=== PATIENT | male | born 1970 | race Caucasian/White ===

== ENCOUNTER → 2018-03-15 | Outpatient (CLI) | payer BC ==
--- NOTE | 2018-03-15 15:04 | US ---
EXAMINATION TYPE: US extremity nonvasculr ltd RT DATE OF EXAM: 03/15/2018 COMPARISON: NONE CLINICAL HISTORY: R22.41Localized swelling, mass and lump, right low. Pt states palpable lump right a nterior leg just above right knee x 2 months Complex/Cystis area where pt feels palpable right anterior leg just above knee= 2.4 x 1.9 x 2.2 cm This appears nonvascular on color-flow sonography. IMPRESSION: Complex cyst like structure above the knee at the palpable abnormality. Consider additio nal workup with MRI.
== END | disposition home or self-care (01) ==
LOC: RADUSWWP 14:15
PROVIDERS: ATTEND Family Medicine
DX: R22.41 Localized swelling, mass and lump, right lower limb (principal)

== ENCOUNTER 2018-06-16 08:04 | Inpatient (IN) | payer BC ==
[2018-06-16] MEDS ORDERED: KETOROLAC 30 MG/ML 1 ML VIAL IVP STA (08:34)
[2018-06-16] MEDS ORDERED: SODIUM CHLORIDE 0.9% 500 ML 500 ML IV STA (08:34)
[2018-06-16 09:16] LABS: Basophils % (A) 1 %; Eosinophils # (A) 0.2 k/uL (0-0.7); Eosinophils % (A) 4 %; HCT 41.3 % (39.0-53.0); Lymphocytes # (A) 1.4 k/uL (1.0-4.8); Lymphocytes % (A) 34 %; MCH 33.8 pg (25.0-35.0); MCHC 33.8 g/dL (31.0-37.0); MCV 99.9 fL (80.0-100.0); Mean Platelet Volume 7.6; Monocytes # (A) 0.4 k/uL (0-1.0); Monocytes % (A) 10 %; Neutrophils % (A) 47 %; Platelet Count 269 k/uL (150-450); RBC 4.13 m/uL (4.30-5.90); RDW 13.2 % (11.5-15.5); WBC 4.2 k/uL (3.8-10.6)
[2018-06-16 09:28] LABS: ALT 26 U/L (21-72); AST 18 U/L (17-59); Albumin 4.4 g/dL (3.5-5.0); Alkaline Phosphatase 92 U/L (38-126); Anion Gap 9 mmol/L; Blood Urea Nitrogen 16 mg/dL (9-20); Calcium 11.7 mg/dL (8.4-10.2); Carbon Dioxide 30 mmol/L (22-30); Chloride 105 mmol/L (98-107); Glucose 96 mg/dL (74-99); Magnesium 1.7 mg/dL (1.6-2.3); Potassium 4.4 mmol/L (3.5-5.1); Sodium 144 mmol/L (137-145); Total Bilirubin 0.8 mg/dL (0.2-1.3); Total Protein 6.6 g/dL (6.3-8.2)
[2018-06-16 09:33] LABS: D-Dimer 0.28 mg/L FEU (<0.60); INR 0.9 (<1.2)
[2018-06-16 09:34] LABS: Partial Thromboplastin Time 23.2 sec (22.0-30.0); Prothrombin Time 10.2 sec (9.0-12.0)
--- NOTE | 2018-06-16 10:05 | XR ---
EXAMINATION TYPE: XR chest 2V DATE OF EXAM: 06/16/2018 COMPARISON: 05/27/2014 INDICATION: Chest pain TECHNIQUE: Frontal and lateral views of the chest are obtained. FINDINGS: The heart size is normal. The pulmonary vasculature is normal. The lungs are clear. IMPRESSION: 1. No acute pulmonary process.
--- NOTE | 2018-06-16 11:20 | CT ---
EXAMINATION TYPE: CT ChestAbdPelvis w con DATE OF EXAM: 06/16/2018 INDICATION: Left upper quadrant pain and chest pain COMPARISON: None CT DLP: 955.4 mGycm CONTRAST: Performed without Oral Contrast and with IV Contrast, patient injected with 100 ml mL of Isovue 300. TECHNIQUE: Axial images at 5 mm thick sections. Reconstructed images in the coronal plane. Delayed images through the kidneys. FINDINGS: CT CHEST: Portion of the thyroid visualized is normal. No suspicious lung nodules or focal infiltrates are present. No enlarged mediastinal or hilar adenopathy is evident. The ascending aorta diameter at the level of the main pulmonary artery is 3.5 cm. The main pulmonary artery diameter at the bifurcation is 2.1 cm. No significant coronary artery calcification is noted. CT ABDOMEN: Liver: Normal Spleen: Normal Pancreas: Normal Adrenal glands: The adrenal glands are normal. Gallbladder: Normal Kidneys: No masses are evident. No hydronephrosis is present. No cysts are present. Delayed images were obtained through the kidneys, which remain unremarkable. Aorta: Vascular calcification is within the aorta. Inferior vena cava: Normal. CT PELVIS: Loops of bowel within the abdomen and pelvis are normal. Study is performed without oral contrast limiting bowel evaluation. Some fecal debris is scattered throughout the colon. Appendix: Not identified. There is a small extension from the cecum which could be a truncated append ix. No suspicious inflammatory changes are adjacent. Correlate with patient's surgical history. Urinary bladder: Normal. Genitourinary structures: Small calcification may be within the prostate. No prostate enlargement is evident. Osseous structures: There are multiple lytic areas within the lumbar spine. The largest appears to be at the L2 level. Correlate for history of cancer. Consider multiple myeloma within the differential. There appears to be expansile rib lesions posterior left T11 which may have a pathologic fracture an d posterior lateral T9. IMPRESSIONS: 1. Expansile lesion within the posterior left 11th rib with possible pathologic fracture. Correlate w ith location of the patient's pain. 2. Expansile lesion within the posterior lateral left ninth rib. 3. Multiple lytic areas throughout the thoracic and lumbar spine. The largest area could involve most of the vertebral body of L2. No acute compression deformities are identified at this time. 4. Lytic areas within the medial right iliac wing. 4. Clinical correlation recommended for multiple myeloma. Metastatic disease could be considered. Add itional workup is recommended.
--- NOTE | 2018-06-16 12:04 | ED ---
General Adult HPI - General Chief complaint: Abdominal Pain Stated complaint: abd pain Time Seen by Provider: 06/16/18 08:17 Source: patient, RN notes reviewed Mode of arrival: ambulatory Limitations: no limitations - History of Present Illness Initial comments: 47-year-old male without any significant past medical history presents to the emergency department for a chief complaint of left rib pain 6 weeks. He states this is worse when he coughs and takes a deep breath. Patient states he has seen his primary care provider who had him do x-rays due to concern for possible rib fracture. However patient denies any injuries. Patient states it is starting to hurt so bad it is causing him to wake up in cold sweats. Patient states he was here and would like to figure out what is going on to cause such pain. He denies any cough or congestion. He denies fevers or chills. Denies any abdominal pain. Patient has no other complaints at this time including shortness of breath, chest pain, abdominal pain, nausea or vomiting, headache, or visual changes. - Related Data Home Medications Medication Instructions Recorded Confirmed Acetaminophen-Codeine 300-30mg 1 tab PO TID PRN 06/16/18 06/16/18 [Tylenol w/codeine #3] Escitalopram [Lexapro] 20 mg PO DAILY 06/16/18 06/16/18 Loratadine [Claritin] 10 mg PO DAILY 06/16/18 06/16/18 Allergies Allergy/AdvReac Type Severity Reaction Status Date / Time No Known Allergies Allergy Verified 06/16/18 12:53 Review of Systems ROS Statement: Those systems with pertinent positive or pertinent negative responses have been documented in the HPI. ROS Other: All systems not noted in ROS Statement are negative. Past Medical History Past Medical History: Hypertension Additional Past Medical History / Comment(s): Never taken hypertensive medication. History of Any Multi-Drug Resistant Organisms: None Reported Past Surgical History: No Surgical Hx Reported, Appendectomy Past Psychological History: No Psychological Hx Reported, Depression Smoking Status: Never smoker Past Alcohol Use History: Daily Past Drug Use History: None Reported General Exam Limitations: no limitations General appearance: alert, in no apparent distress Head exam: Present: atraumatic, normocephalic, normal inspection Eye exam: Present: normal appearance, PERRL, EOMI. Absent: scleral icterus, conjunctival injection, periorbital swelling ENT exam: Present: normal exam, mucous membranes moist Neck exam: Present: normal inspection. Absent: tenderness, meningismus, lymphadenopathy Respiratory exam: Present: normal lung sounds bilaterally, chest wall tenderness (Patient has left-sided lateral rib tenderness extending from about T4 or down his rib cage.). Absent: respiratory distress, wheezes, rales, rhonchi, stridor, accessory muscle use Cardiovascular Exam: Present: regular rate, normal rhythm, normal heart sounds. Absent: systolic murmur, diastolic murmur, rubs, gallop, clicks GI/Abdominal exam: Present: soft, normal bowel sounds. Absent: distended, tenderness (Tenderness in the abdomen including the left upper quadrant), guarding, rebound, rigid Neurological exam: Present: alert, oriented X3, CN II-XII intact Psychiatric exam: Present: normal affect, normal mood Course Vital Signs 06/16/18 08:12 Temperature 98.3 F Pulse Rate 77 Respiratory 18 Rate Blood Pressure 152/100 O2 Sat by Pulse 98 Oximetry EKG Findings - EKG Comments: EKG Findings:: Normal sinus rhythm, ventricular rate 75, ID interval 148, QTC 417 Medical Decision Making - Medical Decision Making 47-year-old pleasant and well appearing male presents to the emergency department for a chief complaint of left-sided rib pain. Patient states this has been ongoing for 6 weeks. He states he has been evaluated multiple times for this and recently had a chest x-ray to rule out rib fracture. On exam patient is of tenderness noted of the lateral left-sided chest wall. Given pleuritic symptoms d-dimer was ordered which was within normal limits. Given symptoms extending from the chest down to the lower ribs CT chest abdomen and pelvis was ordered. This shows lesions within the posterior left ribs with possible pathologic fracture. There are also lesions in the posterior lateral left ninth rib as well as throughout the thoracic and lumbar spine. Most of L2 is involved. There are also lytic lesions noted within the right iliac wing. Calcium is elevated at 11.7. CBC CMP troponin otherwise unremarkable. Lesions and concern for possible cancerous etiology were discussed with patient. He will be admitted for oncology consult. He is agreeable to this. - Lab Data Result diagrams: 06/16/18 08:58 06/16/18 08:58 Lab Results 06/16/18 06/16/18 06/16/18 Range/Units 08:58 08:58 08:58 WBC 4.2 (3.8-10.6) k/uL RBC 4.13 L (4.30-5.90) m/uL Hgb 14.0 (13.0-17.5) gm/dL Hct 41.3 (39.0-53.0) % MCV 99.9 (80.0-100.0) fL MCH 33.8 (25.0-35.0) pg MCHC 33.8 (31.0-37.0) g/dL RDW 13.2 (11.5-15.5) % Plt Count 269 (150-450) k/uL Neutrophils % 47 % Lymphocytes % 34 % Monocytes % 10 % Eosinophils % 4 % Basophils % 1 % Neutrophils # 2.0 (1.3-7.7) k/uL Lymphocytes # 1.4 (1.0-4.8) k/uL Monocytes # 0.4 (0-1.0) k/uL Eosinophils # 0.2 (0-0.7) k/uL Basophils # 0.0 (0-0.2) k/uL PT 10.2 (9.0-12.0) sec INR 0.9 (<1.2) APTT 23.2 (22.0-30.0) sec D-Dimer 0.28 (<0.60) mg/L FEU Sodium 144 (137-145) mmol/L Potassium 4.4 (3.5-5.1) mmol/L Chloride 105 (98-107) mmol/L Carbon Dioxide 30 (22-30) mmol/L Anion Gap 9 mmol/L BUN 16 (9-20) mg/dL Creatinine 1.07 (0.66-1.25) mg/dL Est GFR (CKD-EPI)AfAm >90 (>60 ml/min/1.73 sqM) Est GFR (CKD-EPI)NonAf 84 (>60 ml/min/1.73 sqM) Glucose 96 (74-99) mg/dL Calcium 11.7 H (8.4-10.2) mg/dL Magnesium 1.7 (1.6-2.3) mg/dL Total Bilirubin 0.8 (0.2-1.3) mg/dL AST 18 (17-59) U/L ALT 26 (21-72) U/L Alkaline Phosphatase 92 (38-126) U/L Troponin I (0.000-0.034) ng/mL Total Protein 6.6 (6.3-8.2) g/dL Albumin 4.4 (3.5-5.0) g/dL 06/16/18 Range/Units 08:58 WBC (3.8-10.6) k/uL RBC (4.30-5.90) m/uL Hgb (13.0-17.5) gm/dL Hct (39.0-53.0) % MCV (80.0-100.0) fL MCH (25.0-35.0) pg MCHC (31.0-37.0) g/dL RDW (11.5-15.5) % Plt Count (150-450) k/uL Neutrophils % % Lymphocytes % % Monocytes % % Eosinophils % % Basophils % % Neutrophils # (1.3-7.7) k/uL Lymphocytes # (1.0-4.8) k/uL Monocytes # (0-1.0) k/uL Eosinophils # (0-0.7) k/uL Basophils # (0-0.2) k/uL PT (9.0-12.0) sec INR (<1.2) APTT (22.0-30.0) sec D-Dimer (<0.60) mg/L FEU Sodium (137-145) mmol/L Potassium (3.5-5.1) mmol/L Chloride (98-107) mmol/L Carbon Dioxide (22-30) mmol/L Anion Gap mmol/L BUN (9-20) mg/dL Creatinine (0.66-1.25) mg/dL Est GFR (CKD-EPI)AfAm (>60 ml/min/1.73 sqM) Est GFR (CKD-EPI)NonAf (>60 ml/min/1.73 sqM) Glucose (74-99) mg/dL Calcium (8.4-10.2) mg/dL Magnesium (1.6-2.3) mg/dL Total Bilirubin (0.2-1.3) mg/dL AST (17-59) U/L ALT (21-72) U/L Alkaline Phosphatase (38-126) U/L Troponin I <0.012 (0.000-0.034) ng/mL Total Protein (6.3-8.2) g/dL Albumin (3.5-5.0) g/dL Disposition Clinical Impression: Bone lesion, Pathological fracture of rib of left side, Hypercalcemia Disposition: ADMITTED IP TO THIS HOSP Condition: Fair Is patient prescribed a controlled substance at d/c from ED?: No Referrals: Jackie Pate III, MD [Primary Care Provider] - 1-2 days Time of Disposition: 12:49
[2018-06-16] MEDS ORDERED: MORPHINE SULFATE 4 MG/ML SYRINGE IV PRN (12:37)
[2018-06-16] MEDS ORDERED: ONDANSETRON 4 MG/2 ML VIAL IVP PRN (12:37)
[2018-06-16] MEDS ORDERED: NALOXONE 0.4 MG/ML 1 ML VIAL IV PRN (12:37)
[2018-06-16] MEDS: SODIUM CHLORIDE 0.9% 1,000 ML IV SCH ×2 (13:24→21:14)
[2018-06-16] MEDS ORDERED: ALPRAZolam 0.25 MG TAB PO PRN (15:59)
[2018-06-16] MEDS ORDERED: ACETAMINOPHEN TAB 500 MG TAB PO PRN (15:59)
[2018-06-16] MEDS ORDERED: HYDROmorphone 0.5 MG/0.5 ML SYRINGE IVP PRN (15:59)
[2018-06-16] MEDS ORDERED: cloNIDine HCL 0.1 MG TAB PO PRN (15:59)
[2018-06-16 16:15] VITALS: BMI 28.1
--- NOTE | 2018-06-16 17:00 | HP ---
HISTORY AND PHYSICAL DATE OF SERVICE: 06/16/2018 CHIEF COMPLAINTS: Left rib pain. HISTORY OF PRESENT ILLNESS: This 47-year-old gentleman with a past medical history of hypertension, history of appendectomy, history of depression, being followed by Dr. Pate in the outpatient setting complaining of rib pain on the left side for about 6 weeks. The patient also had some back pain also. The patient had multiple urgent care visits and because of lack of improvement, the patient came to [facility] and admitted for further evaluation and treatment. There is no history of fever, rigors. No history of headache, loss of consciousness, seizures at this time. The patient reports the pain is worse when coughing or taking a deep breath. Initial evaluation showed WBC 4.2, hemoglobin is 14 and calcium is elevated at 11.7. The patient had a chest x-ray which showed no acute pulmonary processes, but the patient had a CT scan of the chest, abdomen and pelvis which showed expansile lesion in the posterior left 11th rib with possible pathological fracture and expansile lesion in the posterior lateral left 9th rib and multiple indicators throughout thoracic and lumbar spine. Largest area could be involving the L2 and lytic areas in the medial right iliac wing. The patient admitted for further evaluation and treatment. Multiple myeloma with mental status concerns. There is no history of fever, rigors or chills. No history of headache, loss of consciousness, seizures. PAST MEDICAL HISTORY: Hypertension, history of appendectomy, history of depression. MEDICATIONS: Home medications are: 1. Tylenol #3, 1 p.o. p.r.n. 2. Claritin 10 mg. 3. Lexapro 20 mg daily. ALLERGIES: None. FAMILY HISTORY: No history of heart disease or strokes in the family. SOCIAL HISTORY: No history of smoking. REVIEW OF SYSTEMS: ENT: No diminished hearing or vision. CARDIOVASCULAR: No angina or palpitations. RESPIRATORY: As mentioned earlier. GI no nausea or vomiting. no dysuria. Nervous system: No numbness, weakness. ALLERGY/IMMUNOLOGY: No asthma or hayfever. MUSCULOSKELETAL: As mentioned earlier. HEMATOLOGY/ONCOLOGY: As mentioned earlier. ENDOCRINE: As mentioned earlier. CONSTITUTIONAL: As mentioned earlier. Dermatology negative. Rheumatology: Negative. Psychiatry as mentioned earlier. Otherwise musculoskeletal mentioned. PHYSICAL EXAMINATION: Alert and oriented x3. Pulse is 185, blood pressure 160/70, respiration 18, temperature 97.9, pulse ox 98% on room air. HEENT: Conjunctivae normal. NECK: No jugular venous distention. CARDIOVASCULAR: S1, S2 muffled. RESPIRATORY: Breath sounds diminished in the bases. No rhonchi. No crackles. ABDOMEN: Soft, nontender. No mass palpable. No hepatosplenomegaly. LEGS: No edema, no swelling. CENTRAL NERVOUS SYSTEM: As mentioned earlier. Moves all 4 limbs. No focal motor or sensory deficits. Lymphatics: No lymph nodes palpable in the neck, axillae or groin. Skin no ulcer, rash or bleeding. Examination of the left chest, palpation slightly tender. LAB STUDIES: WBC 4.8, hemoglobin is 14. Sodium 140, potassium 4.2, creatinine 11.0, other labs are noted. ASSESSMENT: 1. Diffuse osteolytic lesions in the ribs and the thoracic and lumbar vertebrae and iliac bone, possibly multiple myeloma. Rule out metastasis. 2. Hypercalcemia. 3. Possible rib fractures with severe chest pain. 4. Hypertension. 5. History of depression. RECOMMENDATIONS AND DISCUSSION: In this 47-year-old gentleman who presented with multiple complex medical issues, we will monitor the patient closely, continue the current medications, management and symptomatic treatment. I recommend Hematology/Oncology evaluation, protein electrophoresis, possible bone marrow biopsy, otherwise continue IV fluids. Repeat labs in the morning. Guarded prognosis because of multiple complex medical problems. We will monitor blood pressure closely. DVT prophylaxis. Prognosis guarded. Copy of dictation forwarded to Dr. Pate who is the primary care physician. AVIS / DIEGON: [id number] /
--- NOTE | 2018-06-16 17:02 | P.CONS ---
History of Present Illness - Reason for Consult Consult date: 06/16/18 Lytic Lesions Requesting physician: Jordin Griffiths - Chief Complaint pain - History of Present Illness Mr. Arthur is a 47-year-old male without any significant past medical history presents to the emergency department for a complaints of persistent left sided rub pain, present for the past 6 weeks. He was seen by PCP for xrays for possible fracture, although the pain was so severe was keeping him from sleeping and could not find relief at home with OTC medication. On admission CT scan C/A/P was completed. Concern for possible lytic lesions and elevated calcium level was identified. His total portein and albumin are within normal limits, no anemia on CBC. Hematology has been consulted to correlate for potential of multiple myeloma versus other malignancy. CT scan did reveal potential pathological rib fracture at left of the right 6th rib. 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 In April of this year was diagnosed with pleurisy and states ever since then just has not recovered. Since March he has been waking up overnight with drenching sweats that have even been ad enough he has slept with a towel under him. He has no weight loss or changes in bowels or bladder. His calcium 11.[address] lytic lesions was the reason we have been consulted. No personal history of cancer Review of Systems A 14 point review of systems assessed and completed and all negative except HPI. Past Medical History Past Medical History: Hypertension Additional Past Medical History / Comment(s): Never taken hypertensive medication. History of Any Multi-Drug Resistant Organisms: None Reported Past Surgical History: No Surgical Hx Reported, Appendectomy Past Psychological History: No Psychological Hx Reported, Depression Smoking Status: Never smoker Past Alcohol Use History: Daily Past Drug Use History: None Reported - Past Family History Father Family Medical History: Hypertension Medications and Allergies Home Medications Medication Instructions Recorded Confirmed Type Acetaminophen-Codeine 300-30mg 1 tab PO DIRECTED PRN 06/16/18 06/16/18 History [Tylenol w/codeine #3] Escitalopram [Lexapro] 20 mg PO DAILY 06/16/18 06/16/18 History Loratadine [Claritin] 10 mg PO DAILY 06/16/18 06/16/18 History Allergies Allergy/AdvReac Type Severity Reaction Status Date / Time No Known Allergies Allergy Verified 06/16/18 12:53 Physical Exam Vitals: Vital Signs Temp Pulse Pulse Resp BP BP Pulse Ox 06/16/18 15:30 87 16 160/78 06/16/18 15:14 97.9 F 85 18 160/78 99 06/16/18 13:30 92 15 150/84 06/16/18 13:24 97.5 F L 78 16 148/83 97 06/16/18 13:00 78 16 163/90 97 06/16/18 12:30 80 18 144/84 98 06/16/18 12:00 79 12 144/80 97 06/16/18 11:30 79 16 146/80 98 06/16/18 11:00 78 18 147/83 95 06/16/18 10:30 80 18 145/85 98 06/16/18 10:00 79 18 131/70 97 06/16/18 09:00 149/81 97 06/16/18 08:12 98.3 F 77 18 152/100 98 Intake and Output 06/16/18 06/16/18 06/16/18 06:59 14:59 22:59 Intake Total 240 Balance 240 Intake: Oral 240 Other: # Voids 2 Weight 81.647 kg Gen: no acute distress, awake and alert, well develped Head: NC. NT Neck Trachea midline neck supple No lymphadenopathy on exam Lungs: Unable to take full deep inspiration without pain, Diminished, Clear Heart: Tachy, Reg Abdomen: S/ND/NT Ext: No edema Neuro - non focal. Results CBC & Chem 7: 06/16/18 08:58 06/16/18 08:58 Labs: Abnormal Lab Results - Last 24 Hours (Table) 06/16/18 06/16/18 Range/Units 08:58 08:58 RBC 4.13 L (4.30-5.90) m/uL Calcium 11.7 H (8.4-10.2) mg/dL CT scan - abdomen: report reviewed CT scan - chest: report reviewed CT scan - pelvis: report reviewed Assessment and Plan Plan: Assessment and Recommendations: 1. Concern for lytic lesions on Bone and Right 6th rib pathological fracture: - Reviewed CT and no other abnormalities noted - Bone Scan to further identify as his total protein and albumin appear wnl - Myeloma work-up ordered 2. Hypercalcemia: - Check vit D, PTH, and recheck Calcium level in am after continuous hydration overnight 3. Persistent intractible pain right rib: Per primary team Physician Attest: I have completed the full history and physical and devloped the comple impression and plan, agree with dictation dictated as a scribe.
[2018-06-16] MEDS: amLODIPine 5 MG TAB PO SCH (17:49)
[2018-06-16 18:09] LABS: Magnesium 1.7 mg/dL (1.6-2.3); Phosphorus 3.7 mg/dL (2.5-4.5)
[2018-06-16] MEDS: KETOROLAC 30 MG/ML 1 ML VIAL IVP PRN (21:11)
[2018-06-16] MEDS: TEMAZEPAM 15 MG CAP PO PRN (21:11)
[2018-06-16] MEDS: HEPARIN SODIUM,PORCINE 5,000 UNIT/ML 1 ML VIAL SQ SCH (21:11)
[2018-06-17 06:29] VITALS: RESP 16
[2018-06-17 08:28] LABS: Basophils % (A) 1 %; Eosinophils # (A) 0.1 k/uL (0-0.7); Eosinophils % (A) 3 %; HCT 39.9 % (39.0-53.0); HGB 14.1 gm/dL (13.0-17.5); Lymphocytes # (A) 1.4 k/uL (1.0-4.8); Lymphocytes % (A) 36 %; MCH 34.2 pg (25.0-35.0); MCHC 35.4 g/dL (31.0-37.0); MCV 96.5 fL (80.0-100.0); Monocytes # (A) 0.4 k/uL (0-1.0); Monocytes % (A) 9 %; Neutrophils # (A) 1.9 k/uL (1.3-7.7); Neutrophils % (A) 49 %; Platelet Count 290 k/uL (150-450); RBC 4.13 m/uL (4.30-5.90); RDW 13.1 % (11.5-15.5); WBC 3.9 k/uL (3.8-10.6)
[2018-06-17 08:33] LABS: Protein, Total 6.3 g/dL (6.2-8.2)
[2018-06-17] MEDS: ESCITALOPRAM 20 MG TAB PO SCH (08:41)
[2018-06-17] MEDS: HEPARIN SODIUM,PORCINE 5,000 UNIT/ML 1 ML VIAL SQ SCH ×2 (08:41→20:14)
[2018-06-17] MEDS: PANTOPRAZOLE 40 MG TABLET PO SCH (08:41)
[2018-06-17] MEDS: LORATADINE 10 MG TAB PO SCH (08:41)
[2018-06-17] MEDS: amLODIPine 5 MG TAB PO SCH (08:41)
[2018-06-17] MEDS: KETOROLAC 30 MG/ML 1 ML VIAL IVP PRN ×2 (08:44→15:58)
[2018-06-17 08:51] LABS: ALT 33 U/L (21-72); AST 17 U/L (17-59); Albumin 4.1 g/dL (3.5-5.0); Alkaline Phosphatase 88 U/L (38-126); Anion Gap 7 mmol/L; Blood Urea Nitrogen 13 mg/dL (9-20); Calcium 11.3 mg/dL (8.4-10.2); Carbon Dioxide 27 mmol/L (22-30); Chloride 107 mmol/L (98-107); Glucose 128 mg/dL (74-99); Potassium 4.1 mmol/L (3.5-5.1); Sodium 141 mmol/L (137-145); Total Bilirubin 0.9 mg/dL (0.2-1.3); Total Protein 6.3 g/dL (6.3-8.2)
[2018-06-17 08:51] LABS: Vitamin D 25 Hydroxy 42.9 ng/mL (30.0-100.0)
[2018-06-17] MEDS: SODIUM CHLORIDE 0.9% 1,000 ML IV SCH ×4 (09:50→22:52)
[2018-06-17 09:57] LABS: Immunoglobulin A 52.6 mg/dL (60.0-350.0); Immunoglobulin M 19.5 mg/dL (40.0-280.0)
--- NOTE | 2018-06-17 10:17 | P.PN ---
Subjective Progress Note Date: 06/17/18 Principal diagnosis: Bony lesions, hypercalcemia In follow-up today patient's right rib pain is controlled, he has no new physical complaints on a 10 point review of systems Objective - Vital Signs Vital signs: Vital Signs Temp 97.4 F L 06/17/18 06:28 Pulse 72 06/17/18 06:28 Resp 16 06/17/18 06:28 BP 117/70 06/17/18 06:28 Pulse Ox 95 06/17/18 06:28 Intake & Output 06/16/18 06/17/18 06/17/18 18:59 06:59 18:59 Intake Total 600 2280 Balance 600 2280 Weight 81.647 kg Intake: Intake, IV Titration 1200 Amount Sodium Chloride 0.9% 1, 1200 000 ml @ 100 mls/hr IV . Q10H [facility] Rx#:[id number] Oral 600 1080 Other: Voiding Method Toilet Toilet # Voids 2 1 - Constitutional General appearance: Present: average body habitus, cooperative, no acute distress - EENT Eyes: Present: anicteric sclerae, EOMI, dentition normal ENT: Present: hearing grossly normal, normal oropharynx - Respiratory Respiratory: bilateral: CTA - Cardiovascular Rhythm: regular Heart sounds: normal: S1, S2 Abnormal Heart Sounds: Absent: systolic murmur, diastolic murmur, rub, S3 Gallop , S4 Gallop, click, other - Peripheral edema leg Peripheral Edema: bilateral: None - Gastrointestinal General gastrointestinal: Present: normal bowel sounds, soft. Absent: absent bowel sounds, decreased bowel sounds, distended, hepatomegaly, hyperactive bowel sounds, organomegaly, rigid, scaphoid, splenomegaly, tenderness, umbilical hernia, ventral hernia - Genitourinary Genitourinary Comment(s): No scrotal masses or pain - Integumentary Integumentary: Present: normal - Neurologic Neurologic: Present: CNII-XII intact - Musculoskeletal Musculoskeletal: Present: strength equal bilaterally - Psychiatric Psychiatric: Present: A&O x's 3, appropriate affect, intact judgment & insight - Labs CBC & Chem 7: 06/17/18 08:03 06/17/18 08:03 Labs: Abnormal Lab Results - Last 24 Hours (Table) 06/16/18 06/17/18 06/17/18 Range/Units 17:23 08:03 08:03 RBC 4.13 L (4.30-5.90) m/uL Glucose 128 H (74-99) mg/dL Calcium 11.3 H (8.4-10.2) mg/dL IgG 452.0 L (700.0-1600.0) mg/dL IgA 52.6 L (60.0-350.0) mg/dL IgM 19.5 L (40.0-280.0) mg/dL - Imaging and Cardiology CT scan - abdomen: report reviewed CT scan - chest: report reviewed CT scan - pelvis: report reviewed Assessment and Plan (1) Bone lesion Narrative/Plan: NM bone scan pending. Further testing do be determined based numerous test results pending. Current Visit: Yes Status: Acute Priority: High Code(s): M89.9 - DISORDER OF BONE, UNSPECIFIED SNOMED Code(s): 36886302 (2) Hypercalcemia Narrative/Plan: Calcium level is down a little today. No treatment, other then supportive care is ordered at this time, pending underlying cause. May consider calcitonin. Ca++, daily monitoring Current Visit: Yes Status: Acute Priority: High Code(s): E83.52 - HYPERCALCEMIA SNOMED Code(s): 19260357 (3) Pathological fracture of rib of left side Narrative/Plan: Pain from ribs is currently managed. Current Visit: Yes Status: Acute Priority: High Code(s): M84.48XA - PATHOLOGICAL FRACTURE, OTHER SITE, INIT ENCNTR FOR FRACTURE SNOMED Code(s): 247490408 Plan: Awaiting nuclear medicine bone scan and completion of the multiple myeloma panel. If parathyroid hormone is elevated suspicions would be more towards a metabolic disorder and workup would consist of further evaluation of parathyroid, Endocrinology evaluation. If parathyroid hormone is decreased recommendation will be for a biopsy of the bone as suspicion would be higher for a malignant cause of bone lesions. Pending myeloma labs. If that work up is more suspicious then the recommendation be bone marrow biopsy. Doctor attests: I performed a history and physical examination of this patient and developed assessment and plan of care with dictator. I agree with dictators note, documented as a scribe.
--- NOTE | 2018-06-17 14:29 | NM ---
EXAMINATION TYPE: NM bone scan whole body DATE OF EXAM: 06/17/2018 COMPARISON: 06/16/2018 HISTORY: Abnormal CT scan Delayed whole-body scanning was performed following the injection of 24.6 mCi Tc 99m MDP. Images acq uired 4 hours post injection. FINDINGS: Abnormal uptake involving the rib cage bilaterally. Abnormal uptake involving the shoulders is likely post arthritic. Faint abnormal uptake throughout the thoracic and portions of the lumbar spine are nonspecific Question a lucent lesion involving the proximal right humerus.. IMPRESSION: 1. Abnormal uptake involving the left 11th and ninth ribs as well as the anterior upper right rib cag e. Finding corresponds to the abnormal uptake seen by CT scan. 2. Abnormal uptake involving the thoracic and lumbar spine corresponds with the area of abnormality b y CT scan. There are 3 areas of abnormal lucent lesions are seen throughout the vertebral column incl uding the thoracic, lumbar and sacrum is on CT scan are not as apparent by bone scan. Multiple myelom a would be in the differential diagnosis which can demonstrate this pattern.
--- NOTE | 2018-06-17 19:52 | PN ---
PROGRESS NOTE DATE OF SERVICE: 06/17/2018 This 47-year-old gentleman admitted with left hip pain had multiple ulcerative lesions also. The patient also had hypercalcemia. The parathyroid hormone has been investigate at this time. A scan has been done today which showed abnormal uptake and abnormal uptake involving the thoracic and lumbar vertebrae, all corresponding. CT findings are also noted. Multiple myeloma is thought to be in the differential diagnosis. Hematology/Oncology are following the patient. No chest pain. No palpitations. No fever. EXAM: Alert and oriented x3. Pulse is 68, blood pressure 124/70, respirations 16, temperature 97.7, pulse ox 98% on room air. HEENT: conjunctivae normal. NECK: No jugular venous distention. CARDIOVASCULAR: S1, S2 muffled. RESPIRATORY: Breath sounds diminished in the bases. No rhonchi. No crackles. ABDOMEN: Soft, nontender. LEGS: No edema. NERVOUS SYSTEM: No focal deficits. Minimal tenderness in the left hip present. LABS: WBC 3.8, hemoglobin is 14.4. The calcium is 11.3 and IgG is 452 and IgA is 52, IgM is 19.5 and free kappa light chain is 253, which is high. ASSESSMENT: 1. Diffuse ulcerated lesions in the ribs as well as thoracolumbar vertebrae and iliac bone, possible multiple myeloma, rule out hyperparathyroidism with metastasis. 2. Hypercalcemia, exact etiology unknown. 3. Possible rib fractures. 4. Congestive heart failure. 5. Hypertension. 6. History of depression. RECOMMENDATIONS AND DISCUSSION: I recommend to continue current medications, continue to monitor and symptomatic treatment. Otherwise pain medications. Further workup as outlined and follow closely with Hematology Oncology. Further recommendations to follow. MMODL / IJN: [id number] / MTDD
[2018-06-17] MEDS: HYDROcodone/APAP 5-325MG 1 EACH TAB PO PRN (20:14)
[2018-06-17] MEDS: TEMAZEPAM 15 MG CAP PO PRN (22:52)
[2018-06-18] MEDS: HYDROmorphone 1 MG/ML 1 ML SYRINGE IVP PRN ×2 (08:49→11:51)
[2018-06-18 09:01] LABS: Basophils % (A) 1 %; Eosinophils # (A) 0.1 k/uL (0-0.7); Eosinophils % (A) 3 %; HCT 40.3 % (39.0-53.0); HGB 13.1 gm/dL (13.0-17.5); Lymphocytes # (A) 1.2 k/uL (1.0-4.8); Lymphocytes % (A) 33 %; MCH 32.2 pg (25.0-35.0); MCHC 32.6 g/dL (31.0-37.0); Mean Platelet Volume 6.8; Monocytes # (A) 0.3 k/uL (0-1.0); Monocytes % (A) 8 %; Neutrophils % (A) 52 %; Platelet Count 326 k/uL (150-450); RBC 4.07 m/uL (4.30-5.90); RDW 13.1 % (11.5-15.5); WBC 3.8 k/uL (3.8-10.6)
[2018-06-18 09:27] LABS: Anion Gap 5 mmol/L; Blood Urea Nitrogen 13 mg/dL (9-20); Calcium 10.7 mg/dL (8.4-10.2); Carbon Dioxide 29 mmol/L (22-30); Chloride 106 mmol/L (98-107); Glucose 104 mg/dL (74-99); Potassium 4.7 mmol/L (3.5-5.1); Sodium 140 mmol/L (137-145)
[2018-06-18] MEDS: HYDROcodone/APAP 5-325MG 1 EACH TAB PO PRN ×2 (10:01→16:30)
[2018-06-18] MEDS: PANTOPRAZOLE 40 MG TABLET PO SCH (10:01)
[2018-06-18] MEDS: amLODIPine 5 MG TAB PO SCH (10:01)
[2018-06-18] MEDS: ESCITALOPRAM 20 MG TAB PO SCH (10:02)
[2018-06-18] MEDS: HEPARIN SODIUM,PORCINE 5,000 UNIT/ML 1 ML VIAL SQ SCH (10:06)
[2018-06-18] MEDS: LORATADINE 10 MG TAB PO SCH (10:09)
[2018-06-18 12:41] VITALS: BP 100/61; PULSE 89; TEMP 97.6
--- NOTE | 2018-06-18 12:52 | P.PCN ---
Date of Procedure: 06/18/18 Preoperative Diagnosis: Suspected multiple myeloma Postoperative Diagnosis: Same Procedure(s) Performed: Bone marrow aspiration and biopsy Anesthesia: local Surgeon: Juan Monzon Front Desk #1: Stated None Estimated Blood Loss (ml): 1 Pathology: other Condition: stable Disposition: no change Indications for Procedure: Bone lesions, hypercalcemia, elevated Light Chains. Suspected Myeloma Operative Findings: Adequate samples Description of Procedure: The procedure was explained in detail to the patient on the floor, and consent obtained. He was then placed in the left lateral decubitus position. The area over both posterior Crest was cleaned and prepped with chlorhexidine and sterile draping. Local anesthesia was administered with lidocaine to the right posterior hilar crest. A Jamshidi needle was then inserted and bone marrow aspirate and biopsy obtained. On withdrawal of the needle hemostasis was easily achieved. Blood loss was minimal. The patient appeared to have tolerated the procedure well without any obvious immediate complications.
[2018-06-18] MEDS ORDERED: ZOLEDRONIC ACID 4 MG in SODIUM CHLORIDE 0.9% 100 ML IV NR (14:00)
[2018-06-18 15:48] LABS: Albumin 4.25 g/dL (3.80-4.90); Gamma Globulin 0.42 g/dL (0.70-1.50)
--- NOTE | 2018-06-19 00:36 | P.PN ---
Subjective Progress Note Date: 06/18/18 The patient denies any new complaints. No history of any fever/chills/nausea /vomiting. He continued to have pain with the main area in the left anterior rib cage. This was slightly more prominent today. No obvious bleeding or bruising. Objective - Vital Signs Vital signs: Vital Signs Temp 97.6 F 06/18/18 12:10 Pulse 89 06/18/18 12:10 Resp 16 06/18/18 12:10 BP 100/61 06/18/18 12:10 Pulse Ox 95 06/18/18 12:10 Intake & Output 06/18/18 06/18/18 06/19/18 06:59 18:59 06:59 Intake Total 1400 Balance 1400 Intake: Intake, IV Titration 900 Amount Sodium Chloride 0.9% 1, 900 000 ml @ 100 mls/hr IV . Q10H [facility] Rx#:[id number] Oral 500 Other: Voiding Method Toilet Toilet # Voids 1 2 - Constitutional General appearance: Present: no acute distress - EENT Eyes: Present: EOMI ENT: Present: hearing grossly normal, normal oropharynx - Respiratory Respiratory: bilateral: CTA - Cardiovascular Rhythm: regular Heart sounds: normal: S1, S2 - Gastrointestinal General gastrointestinal: Present: normal bowel sounds, soft - Integumentary Integumentary: Present: normal - Neurologic Neurologic: Present: CNII-XII intact - Musculoskeletal Musculoskeletal: Present: generalized weakness, strength equal bilaterally - Psychiatric Psychiatric: Present: A&O x's 3, appropriate affect - Labs CBC & Chem 7: 06/18/18 08:28 06/18/18 08:28 Labs: Abnormal Lab Results - Last 24 Hours (Table) 06/16/18 06/18/18 06/18/18 Range/Units 17:23 08:28 08:28 RBC 4.07 L (4.30-5.90) m/uL Glucose 104 H (74-99) mg/dL Calcium 10.7 H (8.4-10.2) mg/dL Gamma Globulins 0.42 L (0.70-1.50) g/dL Assessment and Plan (1) Bone lesion Narrative/Plan: Results of workup available so far, and implications were discussed in detail with the patient and his . He is noted to have markedly elevated Light chain, at 2530 mg/L, with suppression of lambda light chain, and normal immune globulins. PTH is markedly reduced. This is highly suggestive of an advanced monoclonal plasma cell dyscrasia such as multiple myeloma. The pathophysiology was discussed in detail. For further workup, bone marrow aspiration and biopsy was recommended. The procedure was discussed in detail and the patient agreed to proceed. This was to be performed between 12 and 1 PM. The patient will also receive Zometa for his bone lesions. Radiation oncology were consulted to evaluate him for palliative radiation as the site of most significant pain is comparatively localized. Case was discussed in detail with Dr. Everett. Status: Acute Priority: High Code(s): M89.9 - DISORDER OF BONE, UNSPECIFIED SNOMED Code(s): 78673069 (2) Hypercalcemia Narrative/Plan: This appears to be malignant, given the lab so far. This is improved with ongoing hydration. Zometa will be added. Status: Acute Priority: High Code(s): E83.52 - HYPERCALCEMIA SNOMED Code(s ): 91312749 Plan: Given the patient's stability otherwise, he can be discharged home after the bone marrow aspiration biopsy. We recommended [place] for pain control at the time of discharge. He will be followed up outpatient with results of the bone marrow aspiration biopsy. He will also follow-up with radiation oncology as an outpatient if felt to be a candidate for palliative radiation by them
--- NOTE | 2018-06-19 09:52 | P.CONS ---
History of Present Illness - Reason for Consult Consult date: 06/18/17 rib pain Requesting physician: Juan Monzon - Chief Complaint pain - History of Present Illness The patient is a 47-year-old male with a history of recently diagnosed likely multiple myeloma, with bone marrow biopsy pending. The patient's oncologic history began this past March, when he noted pain in the lower back, and worsening pain in the posterior left rib cage. He noted this was significantly worse with coughing, sneezing, moving or laying on the affected side. He ultimately presented to the ER for evaluation on June 16 , after outpatient medical workup failed to find a cause. He subsequently underwent a CT scan of the chest, abdomen and pelvis on the day of his admission. This revealed multiple lytic lesions seen in the thoracic and lumbar spine, with a lytic lesion replacing much of L2. He also had significant lesions the posterior left ninth and 11th rib cage and lesions noted within the pelvis. Laboratory results showed an elevated calcium on admission of 11.7, as well as an elevation in light chain proteins. In combination with his lesions, this was felt to be consistent with a newly diagnosed multiple myeloma. Results from his bone marrow biopsy on June 18 pending at this time. The patient reports that prior to admission, his pain at home would be up to 8 out of 10 at times (coughing, sneezing ect), and that in general he had low- level constant pain of 5 out of 10. His pain was mostly focused on the left posterior rib cage, with some radiation to the left frontal rib cage. The patient reports that while in the hospital on [place], his baseline pain is approximately 2 out of 10, but that with coughing or motion this can still bump to 7 out of 10. He also is feeling better this morning after he had a treatment with Dilaudid. Review of Systems Constitutional: Denies chills, Denies fever Eyes: bilateral blurred vision Ears, nose, mouth and throat: Denies epistaxis, Denies headache Cardiovascular: Denies chest pain, Denies leg edema Respiratory: Reports pain on inspiration, Denies cough Gastrointestinal: Denies nausea, Denies vomiting Musculoskeletal: Reports low back pain, Denies arm numbness/tingling, Denies leg numbness/tingling Integumentary: Denies rash Neurological: Denies aphasia, Denies confusion Psychiatric: Denies anxiety, Denies confusion Endocrine: Denies fatigue Past Medical History Past Medical History: Hypertension Additional Past Medical History / Comment(s): Never taken hypertensive medication. History of Any Multi-Drug Resistant Organisms: None Reported Past Surgical History: No Surgical Hx Reported, Appendectomy Past Psychological History: No Psychological Hx Reported, Depression Smoking Status: Never smoker Past Alcohol Use History: Daily (typically 1 glass of wine) Past Drug Use History: None Reported - Past Family History Father Family Medical History: Hypertension Medications and Allergies Home Medications Medication Instructions Recorded Confirmed Type Escitalopram [Lexapro] 20 mg PO DAILY 06/16/18 06/16/18 History Loratadine [Claritin] 10 mg PO DAILY 06/16/18 06/16/18 History HYDROcodone/APAP 5-325MG [[place] 1 each PO Q6HR PRN #12 tab 06/18/18 Rx 5-325] Allergies Allergy/AdvReac Type Severity Reaction Status Date / Time No Known Allergies Allergy Verified 06/16/18 12:53 Physical Exam Vitals: Vital Signs Temp Pulse Resp BP Pulse Ox 06/18/18 12:10 97.6 F 89 16 100/61 95 - Constitutional General appearance: average body habitus, no acute distress - EENT Eyes: EOMI, PERRLA ENT: hearing grossly normal - Neck Neck: no lymphadenopathy, normal ROM - Respiratory Respiratory: bilateral: CTA - Cardiovascular Rhythm: regular - Gastrointestinal General gastrointestinal: no distended, no tenderness - Integumentary Integumentary: no calor, no rash - Neurologic Neurologic: CNII-XII intact - Musculoskeletal Musculoskeletal: strength equal bilaterally - Psychiatric Psychiatric: A&O x's 3, appropriate affect, intact judgment & insight Results CBC & Chem 7: 06/18/18 08:28 06/18/18 08:28 Labs: Abnormal Lab Results - Last 24 Hours (Table) 06/16/18 Range/Units 17:23 Gamma Globulins 0.42 L (0.70-1.50) g/dL CT scan - abdomen: report reviewed, image reviewed CT scan - chest: report reviewed, image reviewed CT scan - pelvis: report reviewed, image reviewed Assessment and Plan Plan: The patient is a 47-year-old male presenting with significant left posterior rib pain with findings of lytic bone lesions, hypercalcemia and elevated light chain protein all highly suggestive of new diagnosis myeloma. Bone-marrow biopsy pending. 1. Left rib pain: I explained to the patient that typically radiotherapy can be used to help palliate pain symptoms related to multiple myeloma. I explained that the pain relieving effects of radiotherapy are not immediate, and that the patient should continue taking [place] as needed for pain. I discussed with the patient that he would first require CT simulation for treatment planning. I explained that the patient would likely not experience much in the way of side effects, but may notice some mild fatigue, mild skin reaction and possibly altered bowel habits. I discussed with the patient that I would recommend a total of 5 radiation treatments to the left posterior ribs as well as to the lumbar spine. Although the patient reports some mild low back pain which is largely overshadowed by his significant rib pain, review of his imaging reveals a largely replaced L2 vertebral body which may cause some difficulty in the near future. The patient is agreeable to a course of palliative radiotherapy. We will look to complete his course of radiation within 1 week, as the patient is preparing to initiate systemic therapy under the care of Dr. Monzon. Time with Patient: Greater than 30
--- NOTE | 2018-06-24 06:01 | P.DS ---
Providers Date of admission: 06/16/18 13:18 Expected date of discharge: 06/18/18 Attending physician: Divina Cruz Consults: 06/16/18 16:58 Consult Physician Routine Consulting Provider: Anil Spaulding Consult Reason/Comments: bone lesions Do you want consulting provider notified?: Yes 06/18/18 12:52 Consult Physician Routine Consulting Provider: Benito Everett Consult Reason/Comments: Neoplasm related bone pain. Palliative radiation Do you want consulting provider notified?: Yes Primary care physician: Jackie Hathaway [facility] Course: Final Diagnoses: -Diffuse ulcerated lesions in the ribs, thoracolumbar vertebrae and iliac bone, suspect multiple myeloma -Hypercalcemia, etiology unknown, suspect malignancy -Possible rib fractures -CHF -Hypertension -History of depression Hospital course: This is a 47-year-old gentleman admitted with left hip pain, multiple ulcerative lesions, hypercalcemia. A bone scan reported abnormal uptake involving the left 11th and ninth ribs as well as the anterior upper right rib cage ,the thoracic and lumbar vertebrae all corresponding with the area of abnormality by computed tomography scan. On admission calcium 11.7, currently 10.7. Multiple myeloma suspected as the differential diagnosis. Maintain on IV fluid hydration. Reports pain in the left anterior and posterior rib cage. Evaluated by the hematology/oncology, oncology radiology. IgG4 52, IgA 52, IgM 19.5, free Light chain elevated ,253, suppressed lambda light chain .PTH markedly reduced. Underwent further bone marrow aspiration and biopsy, pathology pending. Maintained on Zometa for bone lesions. Radiation oncology discussing palliative radiation. Patient to follow up outpatient with Dr. Monzon regarding results of bone marrow aspiration biopsy. Patient is being discharged home in a stable condition with guarded prognosis. EXAM: GENERAL; alert and oriented 3, no acute distress. CV: Regular S1 and S2, no edema. LUNGS: Bilateral bases diminished, otherwise clear. ABD: Soft, nontender , positive bowel sounds. NEURO: No focal deficits. The impression and plan of care has been dictated as directed. : I performed a history and examination of this patient, discussed the same with the dictator. I agree with the dictator's note ,documented as a scribe. Any additional findings or plans will be noted. Time taken: 35 minutes Patient Condition at Discharge: Stable Plan - Discharge Summary Discharge Rx Participant: No New Discharge Prescriptions: New HYDROcodone/APAP 5-325MG [[place] 5-325] 1 each PO Q6HR PRN #12 tab PRN Reason: Moderate Pain Continue Loratadine [Claritin] 10 mg PO DAILY Escitalopram [Lexapro] 20 mg PO DAILY Discontinued Acetaminophen-Codeine 300-30mg [Tylenol w/codeine #3] 1 tab PO DIRECTED PRN PRN Reason: Pain Discharge Medication List Escitalopram [Lexapro] 20 mg PO DAILY 06/16/18 [History] Loratadine [Claritin] 10 mg PO DAILY 06/16/18 [History] HYDROcodone/APAP 5-325MG [[place] 5-325] 1 each PO Q6HR PRN #12 tab 06/18/18 [Rx] Follow up Appointment(s)/Referral(s): Juan Monzon MD [STAFF PHYSICIAN] - 07/01/18 4:00 pm Jackie Pate III, MD [Primary Care Provider] - 06/26/18 1:30 pm Patient Instructions/Handouts: Hydrocodone/Acetaminophen (By mouth), Bone Marrow Biopsy (DC) Activity/Diet/Wound Care/Special Instructions: Leave pressure dressing on until 12:30 pm on 06/19. after dressing in removed patient may shower per Dr Monzon Diet as tolerated Activity as tolerated Discharge Disposition: HOME SELF-CARE
== END 2018-06-18 17:50 | disposition home or self-care (01) | DRG 841 ==
LOC: EC 08:04 → 3NMEDONC 13:18
PROVIDERS: ADMIT Hospitalist; ATTEND Hospitalist
PROC: 07DR3ZX Extraction of Iliac Bone Marrow, Percutaneous Approach, Diagnostic (ICD-10-PCS; principal; 2018-06-18)
DX: C90.00 Multiple myeloma not having achieved remission (principal); M84.48XA Pathological fracture, other site, initial encounter for fracture; I11.0 Hypertensive heart disease with heart failure; I50.9 Heart failure, unspecified; E83.52 Hypercalcemia; G89.3 Neoplasm related pain (acute) (chronic); F32.9 Major depressive disorder, single episode, unspecified; Z79.899 Other long term (current) drug therapy; Z90.49 Acquired absence of other specified parts of digestive tract; Z82.49 Family history of ischemic heart disease and other diseases of the circulatory system
CPT/HCPCS: 36415; 71046; 71260; 74177; 78306; 80048; 80053; 82306; 82784; 83735; 83883; 83970; 84100; 84153; 84165; 84484; 85025; 85379; 85610; 85730; 86334; 93005; 96361; 96374; 99285

== ENCOUNTER → 2018-06-29 | Outpatient (CLI) | payer BC ==
--- NOTE | 2018-06-29 12:53 | XR ---
EXAMINATION TYPE: XR bone survey complete DATE OF EXAM: 06/29/2018 COMPARISON: Nuclear medicine bone scan dated 06/17/[address] chest abdomen pelvis dated 06/16/2018. HISTORY: Multiple myeloma Bony calvarium : 2 views of the bony calvarium demonstrate a 1.9 cm on the long lytic lesion that is rounded in morphology Spine: Two views of the cervical, thoracic and lumbar spines are submitted. Lytic lesions involving the L1, L2, and L4 vertebral bodies are seen but partially obscured by overlying bowel gas. Expansile lesion of the posterior left rib 11 is noted. Subtle lucency within the 10th vertebral body is suspe cted to represent a lytic lesion as well as of T11 anteriorly. There is a mild compression deformity of L1. Cervical spine demonstrates multilevel degenerative disc disease and reversal of the usual cer vical lordosis with lytic lesion near the superior endplate of C5. The abnormal uptake within the ant erior right ribs on the prior nuclear medicine bone scan is not well delineated on chest radiograph PELVIS: Single view of the pelvis demonstrates no suspicious radiographic abnormality as overlying b owel gas partially obscures the sacrum in the region the known lytic lesion seen on the prior CT UPPER EXTREMITIES: Two views of the upper extremities. Demonstrate a mid to distal right humeral diap hysis 1.5 cm lytic lesion LOWER EXTREMITIES: 2 views of the lower extremities. No suspicious lytic lesions are seen. IMPRESSION: 1. Age indeterminant compression deformity of the L1 vertebral body is mild. Correlate for emilee de la garza. 2. Multiple lytic lesions within the thoracic and lumbar spine involving at least T11, L1, L2, and L4 . Solitary calvarial frontal bone lytic lesion, lytic lesion within the right humerus, and obscuratio n of lytic lesions within the pelvis seen on the prior CT as there is overlying bowel gas. Expansile lesion of the left 11th rib is also redemonstrated.
== END | disposition home or self-care (01) ==
LOC: RADXRMAIN 08:10
PROVIDERS: ATTEND Internal Medicine Hematology & Oncology
DX: M43.8X6 Other specified deforming dorsopathies, lumbar region (principal); M89.9 Disorder of bone, unspecified; C90.00 Multiple myeloma not having achieved remission
CPT/HCPCS: 77075

== ENCOUNTER → 2018-07-25 | Outpatient (CLI) | payer BC ==
[2018-07-25 13:28] LABS: Blood Urea Nitrogen 16 mg/dL (9-20)
--- NOTE | 2018-07-25 15:09 | CT ---
EXAMINATION TYPE: CT abdomen pelvis w con DATE OF EXAM: 07/25/2018 COMPARISON: 06/16/2018 HISTORY: 47-year-old male multiple myeloma, Abdominal bloating x 18 days. TECHNIQUE: Contiguous axial scanning of the abdomen and pelvis following administration of 100 ml Iso pedro 300 IV contrast. Delayed images through the kidneys and coronal/sagittal reconstructions perform ed. CT DLP: 1344 mGycm Automated exposure control for dose reduction was used. FINDINGS: Heart borderline enlarged without pericardial effusion. Extensive dependent atelectasis along the pos terior lungs. Trace left effusion. Few scattered subcentimeter hypodensities within the liver too small for accurate CT characterization , indeterminate, probable tiny cysts. Liver mildly enlarged at 18.5 cm. Gallbladder, adrenal glands, kidneys, spleen, and pancreas appear within normal limits. No biliary ductal dilatation. Portal venous system is patent. No dilated small bowel, free fluid, or free air. No mesenteric or retroperitoneal lymphadenopathy. Moderate stool burden. No pericolonic inflammatory change. Redundant sigmoid colon. Bladder is urine distended. Left-sided pelvic phlebolith. No abnormal fluid collection in the pelvis or pelvic lymphadenopathy. Subcutaneous fat stranding along the anterior midline pelvis, axial image 80. New dependent and bilateral flank edema. Numerous scattered lytic lesions throughout the pelvis and thoracolumbar spine are redemonstrated. Tommy ny destructive lesion left posterior ninth, 11th, and 12th ribs redemonstrated. Additional sagittal l ucencies throughout of the ribs are noted. Minimal anterior wedging of L1 is unchanged, likely chronic. IMPRESSION: 1. NEW DEPENDENT AND BILATERAL FLANK EDEMA. QUERY MILD ANASARCA STATE. 2. SOME ADDITIONAL FAT STRANDING ALONG THE SUBCUTANEOUS ADIPOSE LAYER OF THE ANTERIOR PELVIS COULD AL SO REFLECT SOME FLUID OVERLOAD. CORRELATION TO EXCLUDE CELLULITIS. 3. DIFFUSE LYTIC LESIONS REDEMONSTRATED, LARGELY UNCHANGED FROM 06/16/2018 IN KEEPING WITH THE PATIENT 'S KNOWN MULTIPLE MYELOMA. 4. PROMINENT DEPENDENT ATELECTASIS. TRACE LEFT EFFUSION.
== END | disposition home or self-care (01) ==
LOC: RADCTMAIN 12:43
PROVIDERS: ATTEND Nurse Practitioner Adult Health
DX: C90.00 Multiple myeloma not having achieved remission (principal); Z88.5 Allergy status to narcotic agent
CPT/HCPCS: 82565; 84520; 74177; 36415; Q9967

== ENCOUNTER 2018-07-28 16:02 | Inpatient (IN) | payer BC ==
[2018-07-28] MEDS ORDERED: HYDROmorphone 0.5 MG/0.5 ML SYRINGE IVP STA (16:27)
[2018-07-28] MEDS ORDERED: IPRATROPIUM-ALBUTEROL 3 ML NEB INHALATION STA (16:28)
[2018-07-28 17:30] LABS: Anisocytosis Slight; Basophils % (A) 0 %; Eosinophils # (A) 0.1 k/uL (0-0.7); Eosinophils % (A) 2 %; HGB 9.2 gm/dL (13.0-17.5); Lymphocytes # (A) 0.4 k/uL (1.0-4.8); Lymphocytes % (A) 13 %; MCH 32.5 pg (25.0-35.0); MCV 95.5 fL (80.0-100.0); Macrocytosis Slight; Mean Platelet Volume 10.3; Monocytes # (A) 0.5 k/uL (0-1.0); Monocytes % (A) 18 %; Neutrophils # (A) 1.8 k/uL (1.3-7.7); Neutrophils % (A) 64 %; Platelet Count 273 k/uL (150-450); RBC 2.82 m/uL (4.30-5.90); RDW 16.8 % (11.5-15.5); WBC 2.9 k/uL (3.8-10.6)
--- NOTE | 2018-07-28 17:30 | XR ---
EXAMINATION TYPE: XR chest 2V DATE OF EXAM: 07/28/2018 COMPARISON: Prior chest x-ray 07/19/2018 HISTORY: Difficulty breathing, fever and shortness of breath TECHNIQUE: Frontal and lateral views of the chest are obtained. FINDINGS: There is blunting the costophrenic angles. The heart is enlarged. There are cardiac leads. No pneumothorax. Some minimal bandlike areas of increased attenuation present at the lung bases. IMPRESSION: Some minimal basilar effusion, atelectasis. Persistent cardiomegaly.
[2018-07-28 17:38] LABS: Partial Thromboplastin Time 26.7 sec (22.0-30.0); Prothrombin Time 10.7 sec (9.0-12.0)
[2018-07-28 17:39] LABS: ALT 43 U/L (21-72); AST 15 U/L (17-59); Albumin 2.9 g/dL (3.5-5.0); Alkaline Phosphatase 120 U/L (38-126); Anion Gap 6 mmol/L; Blood Urea Nitrogen 10 mg/dL (9-20); Calcium 8.6 mg/dL (8.4-10.2); Carbon Dioxide 24 mmol/L (22-30); Chloride 108 mmol/L (98-107); Glucose 95 mg/dL (74-99); Potassium 4.4 mmol/L (3.5-5.1); Sodium 138 mmol/L (137-145); Total Bilirubin 0.7 mg/dL (0.2-1.3)
--- NOTE | 2018-07-28 17:56 | ED ---
SOB HPI - General Chief Complaint: Shortness of Breath Stated Complaint: Fever Time Seen by Provider: 07/28/18 16:19 Source: patient Mode of arrival: ambulatory Limitations: no limitations - History of Present Illness Initial Comments: 47yo male with past medical history of multiple myeloma presenting today for chief complaint of shortness of breath. Patient states he is recently discharged from the hospital for treatment of a left lower lobe pneumonia. He states he has finished antibiotic regimen. Patient was seen by Dr. box as well has his hematology oncologist Dr. Monzon. Patient states upon discharge she had no shortness of breath. He states he fell he is at his baseline. Patient states yesterday he heard wheezing in his lungs. He states today he developed shorts of breath as well as a fever. Patient states there is pain near the left side of his lower chest. Patient denies nausea or vomiting headache dizziness, leg swelling. Patient recently finished his initial round of chemotherapy 1 week prior. Patient is scheduled for chemotherapy this upcoming Sunday. Remaining review of systems negative, patient denies any recent back pain, abdominal pain, dysuria or hematuria, constipation or diarrhea, headaches or visual changes, or any other complaints. - Related Data Home Medications Medication Instructions Recorded Confirmed Loratadine [Claritin] 10 mg PO HS 06/16/18 07/28/18 ALPRAZolam [Xanax] 0.25 mg PO BID PRN 07/18/18 07/28/18 Acyclovir [Zovirax] 400 mg PO BID 07/18/18 07/28/18 Aspirin [Adult Low Dose Aspirin EC] 81 mg PO DAILY 07/18/18 07/28/18 Lactulose [Constulose] 20 gm PO BID 07/18/18 07/28/18 Lenalidomide [Revlimid] 25 mg PO DIRECTED 07/18/18 07/28/18 Sulfamethox-Tmp 800-160Mg [Bactrim 1 tab PO MOWEFR 07/18/18 07/28/18 DS 800-160 mg] chlorproMAZINE [Thorazine] 10 mg PO TID PRN 07/18/18 07/28/18 fentaNYL 100MCG/HR PATCH 1 patch TRANSDERM Q48H 07/18/18 07/28/18 [Duragesic 100MCG/HR] tiZANidine [Zanaflex] 2 mg PO HS 07/18/18 07/28/18 Dicyclomine [Bentyl] 20 mg PO BID 07/28/18 07/28/18 Famotidine [Pepcid] 20 mg PO QAM 07/28/18 07/28/18 HYDROmorphone [Dilaudid] 4 mg PO Q6H PRN 07/28/18 07/28/18 Lubiprostone [Amitiza] 24 mcg PO BID 07/28/18 07/28/18 Mirtazapine [Remeron] 15 mg PO HS 07/28/18 07/28/18 Previous Rx's Medication Instructions Recorded Venlafaxine HCl ER [Effexor XR] 75 mg PO HS #30 cap.er.24h 07/20/18 Allergies Allergy/AdvReac Type Severity Reaction Status Date / Time morphine Allergy Itching Verified 07/28/18 18:47 Review of Systems ROS Statement: Those systems with pertinent positive or pertinent negative responses have been documented in the HPI. ROS Other: All systems not noted in ROS Statement are negative. Past Medical History Past Medical History: Cancer, Hypertension Additional Past Medical History / Comment(s): Never taken hypertensive medication., Multiple Myeloma History of Any Multi-Drug Resistant Organisms: None Reported Past Surgical History: Appendectomy Past Psychological History: No Psychological Hx Reported, Depression Smoking Status: Never smoker Past Alcohol Use History: Occasional Past Drug Use History: None Reported - Past Family History Father Family Medical History: Hypertension General Exam - General Exam Comments Initial Comments: General: The patient is awake and alert, in no distress. Eye: +3 mm pupils are equal, round and reactive to light, extra-ocular m ovements are intact. No nystagmus. There is normal conjunctiva bilaterally. No signs of icterus. No photophobia Ears, nose, mouth and throat: There are moist mucous membranes and no oral lesions. Oropharynx was not erythematous there is no tonsillar enlargement exudates or lesions. Uvula midline. Tympanic membranes are not erythematous or is no effusions bulging or retraction. No tenderness to palpation of the mastoid. No anterior cervical lymphadenopathy. Rhinorrhea, clear and bilateral nares. No tripoding, no drooling. Neck: The neck is supple, there is no tenderness or JVD. No nuchal rigidity negative Brudzinski and Kernig Cardiovascular: There is a regular rate and rhythm. No murmur, rub or gallop is appreciated. Respiratory: Respirations are non-labored, breath sounds are equal. No wheezes, stridor, or rhonchi. No retractions or abdominal breathing. Vital nails and bilateral lower lung lion. Gastrointestinal: Soft, non-distended, non-tender abdomen without masses or organomegaly noted. There is no rebound or guarding present. Bowel sounds are unremarkable. Musculoskeletal: Normal ROM, no tenderness. Strength 5/5. Sensation intact. Radial pulses equal bilaterally 2+. Neurological: A&O x 3. CN II-XII intact, There are no obvious motor or sensory deficits. Coordination appears grossly intact. Speech appears normal, no muffling. Skin: Skin is warm and dry and no rashes or lesions are noted. No extremity edema. Negative Vandana Psychiatric: Cooperative Limitations: no limitations Course Vital Signs 07/28/18 07/28/18 07/28/18 16:04 16:12 16:20 Temperature 98.2 F Pulse Rate 75 82 Respiratory 24 37 H 18 Rate Blood Pressure 158/62 131/68 O2 Sat by Pulse 99 96 Oximetry 07/28/18 07/28/18 07/28/18 16:30 16:40 16:50 Temperature Pulse Rate 82 81 80 Respiratory 22 19 28 H Rate Blood Pressure 131/68 115/65 115/65 O2 Sat by Pulse 99 97 Oximetry 07/28/18 07/28/18 07/28/18 17:00 17:03 17:10 Temperature Pulse Rate 80 80 83 Respiratory 21 10 L Rate Blood Pressure 115/65 105/58 O2 Sat by Pulse 99 100 Oximetry 07/28/18 07/28/18 07/28/18 17:17 17:20 17:30 Temperature Pulse Rate 80 81 86 Respiratory 18 25 H Rate Blood Pressure 105/58 105/58 O2 Sat by Pulse 99 96 Oximetry 07/28/18 07/28/18 07/28/18 17:40 17:50 18:00 Temperature Pulse Rate 86 87 86 Respiratory 22 19 17 Rate Blood Pressure 102/59 102/59 102/59 O2 Sat by Pulse 96 96 97 Oximetry 07/28/18 07/28/18 07/28/18 18:10 19:20 19:28 Temperature Pulse Rate 81 89 90 Respiratory 20 Rate Blood Pressure 106/65 O2 Sat by Pulse 97 Oximetry 07/28/18 19:45 Temperature Pulse Rate 91 Respiratory 16 Rate Blood Pressure 104/62 O2 Sat by Pulse 97 Oximetry Medical Decision Making - Medical Decision Making 47-year-old male past medical history multiple myeloma presents today for chief complaint of fever cough shortness of breath. Patient recently discharged from hospital for left lower lobe pneumonia. Rales on examination. Patient sa turating well on room air. No signs of tachycardia or respiratory distress. EKG revealed no acute changes in comparison with that of May 2018. Chest x-ray redemonstrated pneumonia. Patient is no lower extremity edema. Troponin negative. Patient remained stable in the emergency department. At this time will admit patient for hospital-acquired pneumonia, we feel this is most likely diagnosis given fever, recent discharge from the hospital, cough with dyspnea and crackles on examination. Patient was given cefepime, vancomycin and azithromycin to cover for hospital-acquired bacteria as well as atypicals. Patient was given 1 DuoNeb treatment which she stated helped alleviate shortness of breath. Patient is agreeable to admission to the hospital for further evaluation and treatment. Infectious disease on consult. I discussed the case attending provider Dr. Gray prior to patient's admission. She spoke with the admitting provider Dr. Savage. No further orders at this time. - Lab Data Result diagrams: 07/28/18 17:07 07/28/18 17:07 Lab Results 07/28/18 07/28/18 07/28/18 Range/Units 17:07 17:07 17:07 WBC 2.9 L (3.8-10.6) k/uL RBC 2.82 L (4.30-5.90) m/uL Hgb 9.2 L (13.0-17.5) gm/dL Hct 27.0 L (39.0-53.0) % MCV 95.5 (80.0-100.0) fL MCH 32.5 (25.0-35.0) pg MCHC 34.0 (31.0-37.0) g/dL RDW 16.8 H (11.5-15.5) % Plt Count 273 (150-450) k/uL Neutrophils % 64 % Lymphocytes % 13 % Monocytes % 18 % Eosinophils % 2 % Basophils % 0 % Neutrophils # 1.8 (1.3-7.7) k/uL Lymphocytes # 0.4 L (1.0-4.8) k/uL Monocytes # 0.5 (0-1.0) k/uL Eosinophils # 0.1 (0-0.7) k/uL Basophils # 0.0 (0-0.2) k/uL Anisocytosis Slight Macrocytosis Slight PT (9.0-12.0) sec INR (<1.2) APTT (22.0-30.0) sec Sodium 138 (137-145) mmol/L Potassium 4.4 (3.5-5.1) mmol/L Chloride 108 H (98-107) mmol/L Carbon Dioxide 24 (22-30) mmol/L Anion Gap 6 mmol/L BUN 10 (9-20) mg/dL Creatinine 0.75 (0.66-1.25) mg/dL Est GFR (CKD-EPI)AfAm >90 (>60 ml/min/1.73 sqM) Est GFR (CKD-EPI)NonAf >90 (>60 ml/min/1.73 sqM) Glucose 95 (74-99) mg/dL Plasma Lactic Acid Edgar 0.9 (0.7-2.0) mmol/L Calcium 8.6 (8.4-10.2) mg/dL Total Bilirubin 0.7 (0.2-1.3) mg/dL AST 15 L (17-59) U/L ALT 43 (21-72) U/L Alkaline Phosphatase 120 (38-126) U/L Troponin I (0.000-0.034) ng/mL Total Protein 5.0 L (6.3-8.2) g/dL Albumin 2.9 L (3.5-5.0) g/dL Influenza Type A RNA (Not Detectd) Influenza Type B (PCR) (Not Detectd) 07/28/18 07/28/18 07/28/18 Range/Units 17:07 17:07 18:03 WBC (3.8-10.6) k/uL RBC (4.30-5.90) m/uL Hgb (13.0-17.5) gm/dL Hct (39.0-53.0) % MCV (80.0-100.0) fL MCH (25.0-35.0) pg MCHC (31.0-37.0) g/dL RDW (11.5-15.5) % Plt Count (150-450) k/uL Neutrophils % % Lymphocytes % % Monocytes % % Eosinophils % % Basophils % % Neutrophils # (1.3-7.7) k/uL Lymphocytes # (1.0-4.8) k/uL Monocytes # (0-1.0) k/uL Eosinophils # (0-0.7) k/uL Basophils # (0-0.2) k/uL Anisocytosis Macrocytosis PT 10.7 (9.0-12.0) sec INR 1.0 (<1.2) APTT 26.7 (22.0-30.0) sec Sodium (137-145) mmol/L Potassium (3.5-5.1) mmol/L Chloride (98-107) mmol/L Carbon Dioxide (22-30) mmol/L Anion Gap mmol/L BUN (9-20) mg/dL Creatinine (0.66-1.25) mg/dL Est GFR (CKD-EPI)AfAm (>60 ml/min/1.73 sqM) Est GFR (CKD-EPI)NonAf (>60 ml/min/1.73 sqM) Glucose (74-99) mg/dL Plasma Lactic Acid Edgar (0.7-2.0) mmol/L Calcium (8.4-10.2) mg/dL Total Bilirubin (0.2-1.3) mg/dL AST (17-59) U/L ALT (21-72) U/L Alkaline Phosphatase (38-126) U/L Troponin I <0.012 (0.000-0.034) ng/mL Total Protein (6.3-8.2) g/dL Albumin (3.5-5.0) g/dL Influenza Type A RNA Not Detected (Not Detectd) Influenza Type B (PCR) Not Detected (Not Detectd) Disposition Clinical Impression: Hospital-acquired pneumonia, Fever, Leukopenia, History of multiple myeloma Disposition: ADMITTED IP TO THIS HOSP Condition: Stable Is patient prescribed a controlled substance at d/c from ED?: No Time of Disposition: 18:19 Decision to Admit Reason: Admit from EC Decision Date: 07/28/18 Decision Time: 18:19
[2018-07-28] MEDS ORDERED: AZITHROMYCIN 500 MG in SODIUM CHLORIDE 0.9% 250 ML IVPB STA (18:15)
[2018-07-28] MEDS ORDERED: CEFEPIME 2 GM in SODIUM CHLORIDE 0.9% 100 ML IVPB STA (18:15)
[2018-07-28] MEDS ORDERED: VANCOMYCIN IV PER PHARMACY 1 EACH MISC MISCELLANE PRN (18:15)
[2018-07-28] MEDS ORDERED: VANCOMYCIN 1,500 MG in SODIUM CHLORIDE 0.9% 250 ML IVPB STA (18:24)
[2018-07-28] MEDS: IPRATROPIUM-ALBUTEROL 3 ML NEB INHALATION SCH (19:20)
[2018-07-28] MEDS: FUROSEMIDE 10 MG/ML 2 ML VIAL IV SCH (22:12)
[2018-07-28] MEDS ORDERED: ALPRAZolam 0.25 MG TAB PO PRN (22:46)
[2018-07-28] MEDS: HYDROmorphone 4 MG TABLET PO PRN (23:23)
[2018-07-29] MEDS: MIRTAZAPINE 15 MG TAB PO SCH ×2 (00:02→22:14)
[2018-07-29] MEDS: DICYCLOMINE 20 MG TAB PO SCH ×3 (00:02→20:09)
[2018-07-29] MEDS: IPRATROPIUM-ALBUTEROL 3 ML NEB INHALATION SCH ×6 (00:23→19:55)
[2018-07-29] MEDS ORDERED: VANCOMYCIN 1,500 MG in SODIUM CHLORIDE 0.9% 250 ML IVPB SCH (04:00)
[2018-07-29] MEDS: FUROSEMIDE 10 MG/ML 2 ML VIAL IV SCH ×2 (08:24→20:18)
[2018-07-29] MEDS ORDERED: BISACODYL 10 MG SUPP RECTAL STA (09:17)
--- NOTE | 2018-07-29 09:43 | P.CONS ---
History of Present Illness - Reason for Consult Consult date: 07/29/18 HCAP - History of Present Illness This is a 47-year-old male known to ID service due to his recent hospitalization July 19 through July 20 at which time he was treated for right lower lobe pneumonia. He was discharged on Levaquin which he states he completed his course. Patient has significant history for A light chain myeloma and has completed his first cycle of chemotherapy with Velcade. He is also taki ng Revlimid daily for 2 weeks straight. Patient is to start his next cycle tomorrow. Since his discharge, patient had a CAT scan of the abdomen and pelvis due to constipation on July 25 which showed anasarca, lytic lesions unchanged, atelectasis, trace left pleural effusion. The patient gives history of having ongoing problems for the last 3 weeks with abdominal distention and constipation. He did have a very small bowel movement yesterday. He has been on Amitiza, and lactulose. He came into [facility] due to continued rib pain as well as shortness of breath. He had a temperature at home of 102.5. His white count was 2.9, hemoglobin 9.2 platelet count 273, creatinine 0.75, lactic acid 0.9, albumin 2.9. Influenza testing negative. Blood culture status received. Chest x-ray reveals minimal basilar effusion, atelectasis, cardiomegaly. Patient received a dose of azithromycin, cefepime and vancomycin and is admitted to the [facility] floor. He was subsequently started on IV Lasix. He denies any improvement with this. He continues to complain of pain in the ribs, abdominal distention and shortness of breath. He denies having diarrhea. He is passing gas. No nausea or vomiting. Review of Systems Constitutional: Reports chills, Reports fatigue, Reports fever, Reports weakness, Denies anorexia, Denies poor appetite Ears, nose, mouth and throat: Denies dysphagia, Denies nasal congestion, Denies nasal discharge, Denies vertigo Cardiovascular: Denies chest pain Respiratory: Reports dyspnea, Denies cough, Denies cough with sputum, Denies excessive sputum, Denies hemoptysis, Denies home oxygen, Denies wheezing Gastrointestinal: Reports abdominal pain, Reports bloating, Denies diarrhea, Denies loss of appetite, Denies nausea, Denies vomiting Genitourinary: Denies dysuria, Denies urinary frequency Musculoskeletal: Denies frequent falls, Denies gait dysfunction Integumentary: Denies wounds Neurological: Denies aphasia, Denies change in mentation, Denies gait dysfunction, Denies seizures Psychiatric: Denies anxiety, Denies depression, Denies sadness/tearfulness, Denies suicidal ideation Past Medical History Past Medical History: Cancer, Hypertension Additional Past Medical History / Comment(s): Never taken hypertensive medication., Multiple Myeloma History of Any Multi-Drug Resistant Organisms: None Reported Past Surgical History: Appendectomy Past Anesthesia/Blood Transfusion Reactions: No Reported Reaction Past Psychological History: No Psychological Hx Reported, Depression 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 No experience. No recent travel. No significant tobacco or alcohol use or recreational drug use. 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 No recent travel. No significant tobacco or alcohol use or recreational drug use. 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 Past Drug Use History: None Reported - Past Family History Father Family Medical History: Hypertension Medications and Allergies Home Medications Medication Instructions Recorded Confirmed Type Loratadine [Claritin] 10 mg PO HS 06/16/18 07/28/18 History ALPRAZolam [Xanax] 0.25 mg PO BID PRN 07/18/18 07/28/18 History Acyclovir [Zovirax] 400 mg PO BID 07/18/18 07/28/18 History Aspirin [Adult Low Dose Aspirin EC] 81 mg PO DAILY 07/18/18 07/28/18 History Lactulose [Constulose] 20 gm PO BID 07/18/18 07/28/18 History Lenalidomide [Revlimid] 25 mg PO DIRECTED 07/18/18 07/28/18 History Sulfamethox-Tmp 800-160Mg [Bactrim 1 tab PO MOWEFR 07/18/18 07/28/18 History DS 800-160 mg] chlorproMAZINE [Thorazine] 10 mg PO TID PRN 07/18/18 07/28/18 History fentaNYL 100MCG/HR PATCH 1 patch TRANSDERM Q48H 07/18/18 07/28/18 History [Duragesic 100MCG/HR] tiZANidine [Zanaflex] 2 mg PO HS 07/18/18 07/28/18 History Venlafaxine HCl ER [Effexor XR] 75 mg PO HS #30 cap.er.24h 07/20/18 07/28/18 Rx Dicyclomine [Bentyl] 20 mg PO BID 07/28/18 07/28/18 History Famotidine [Pepcid] 20 mg PO QAM 07/28/18 07/28/18 History HYDROmorphone [Dilaudid] 4 mg PO Q6H PRN 07/28/18 07/28/18 History Lubiprostone [Amitiza] 24 mcg PO BID 07/28/18 07/28/18 History Mirtazapine [Remeron] 15 mg PO HS 07/28/18 07/28/18 History Allergies Allergy/AdvReac Type Severity Reaction Status Date / Time morphine Allergy Itching Verified 07/28/18 18:47 Physical Exam Vitals: Vital Signs Temp Pulse Pulse Resp BP BP Pulse Ox 07/29/18 06:53 84 07/29/18 06:40 85 98 07/29/18 05:13 98.0 F 95 17 117/73 98 07/29/18 00:36 82 07/29/18 00:25 82 96 07/28/18 22:00 82 18 07/28/18 21:22 97.0 F L 82 18 141/65 98 07/28/18 19:45 91 16 104/62 97 07/28/18 19:28 90 07/28/18 19:20 89 07/28/18 18:10 81 20 106/65 97 07/28/18 18:00 86 17 102/59 97 07/28/18 17:50 87 19 102/59 96 07/28/18 17:40 86 22 102/59 96 07/28/18 17:30 86 25 H 105/58 96 07/28/18 17:20 81 18 105/58 99 07/28/18 17:17 80 07/28/18 17:10 83 10 L 105/58 100 07/28/18 17:03 80 07/28/18 17:00 80 21 115/65 99 07/28/18 16:50 80 28 H 115/65 07/28/18 16:40 81 19 115/65 97 07/28/18 16:30 82 22 131/68 99 07/28/18 16:20 82 18 131/68 96 07/28/18 16:12 37 H 07/28/18 16:04 98.2 F 75 24 158/62 99 Intake and Output 07/28/18 07/29/18 07/29/18 22:59 06:59 14:59 Intake Total 650 Balance 650 Intake: Intake, IV Titration 650 Amount Azithromycin 500 mg In 250 Sodium Chloride 0.9% 250 ml @ 250 mls/hr IVPB ONCE STA Rx#:[id number] Cefepime 2 gm In Sodium 100 Chloride 0.9% 100 ml @ 200 mls/hr IVPB ONCE STA Rx#:[id number] Vancomycin 1,500 mg In 250 Sodium Chloride 0.9% 250 ml @ 125 mls/hr IVPB Q8H [facility] Rx#:[id number] cefTRIAXone 1 gm In 50 Sodium Chloride 0.9% 50 ml @ 100 mls/hr IVPB ONCE STA Rx#:[id number] Other: # Voids 2 Weight 81.647 kg GEN: This is a 47-year-old male. He is sitting up in bed appears to be somewhat uncomfortable secondary to pain. He has difficulty moving in bed due to pain. HEENT: Anicteric conjunctiva are pink and moist nasal mucosa grossly intact without significant lesions, there is no thrush. Neck: The neck is supple without significant lymphadenopathy or thyromegaly. Lungs: Symmetrical air entry, diminished bilaterally, poor inspiratory effort. Heart: Regular rate and rhythm with an audible S1-S2, no S3 no S4. There is no significant murmur click or rub, PMI was nondisplaced. Abdomen: Moderate firmness with distention, Positive bowel sounds soft and non tender without palpable masses or organomegaly. Extremities: The upper extremities have excellent pulses they are symmetric, no significant petechiae or telangiectasia. No splinter hemorrhages were noted. The lower extremities are free from significant edema. The peripheral pulses were 2+ and symmetric. Neuro: Awake alert oriented to person place and time. There are no acute new gross focal sensory motor deficits. Results Results: Laboratory Results WBC 2.9 k/uL (3.8-10.6) L 04/07/19 17:07 RBC 2.82 m/uL (4.30-5.90) L 07/28/18 17:07 Hgb 9.2 gm/dL (13.0-17.5) L 07/28/18 17:07 Hct 27.0 % (39.0-53.0) L 07/28/18 17:07 MCV 95.5 fL (80.0-100.0) 07/28/18 17:07 MCH 32.5 pg (25.0-35.0) 07/28/18 17:07 MCHC 34.0 g/dL (31.0-37.0) 07/28/18 17:07 RDW 16.8 % (11.5-15.5) H 07/28/18 17:07 Plt Count 273 k/uL (150-450) 07/28/18 17:07 Neutrophils % 64 % 07/28/18 17:07 Lymphocytes % 13 % 07/28/18 17:07 Monocytes % 18 % 07/28/18 17:07 Eosinophils % 2 % 07/28/18 17:07 Basophils % 0 % 07/28/18 17:07 Neutrophils # 1.8 k/uL (1.3-7.7) 07/28/18 17:07 Lymphocytes # 0.4 k/uL (1.0-4.8) L 07/28/18 17:07 Monocytes # 0.5 k/uL (0-1.0) 07/28/18 17:07 Eosinophils # 0.1 k/uL (0-0.7) 07/28/18 17:07 Basophils # 0.0 k/uL (0-0.2) 07/28/18 17:07 Anisocytosis Slight 07/28/18 17:07 Macrocytosis Slight 07/28/18 17:07 PT 10.7 sec (9.0-12.0) 07/28/18 17:07 INR 1.0 (<1.2) 07/28/18 17:07 APTT 26.7 sec (22.0-30.0) 07/28/18 17:07 Sodium 138 mmol/L (137-145) 07/28/18 17:07 Potassium 4.4 mmol/L (3.5-5.1) 07/28/18 17:07 Chloride 108 mmol/L (98-107) H 07/28/18 17:07 Carbon Dioxide 24 mmol/L (22-30) 07/28/18 17:07 Anion Gap 6 mmol/L 07/28/18 17:07 BUN 10 mg/dL (9-20) 07/28/18 17:07 Creatinine 0.75 mg/dL (0.66-1.25) 07/28/18 17:07 Est GFR (CKD-EPI)AfAm >90 (>60 ml/min/1.73 sqM) 07/28/18 17:07 Est GFR (CKD-EPI)NonAf >90 (>60 ml/min/1.73 sqM) 07/28/18 17:07 Glucose 95 mg/dL (74-99) 07/28/18 17:07 Plasma Lactic Acid Edgar 0.9 mmol/L (0.7-2.0) 07/28/18 17:07 Calcium 8.6 mg/dL (8.4-10.2) 07/28/18 17:07 Total Bilirubin 0.7 mg/dL (0.2-1.3) 07/28/18 17:07 AST 15 U/L (17-59) L 07/28/18 17:07 ALT 43 U/L (21-72) 07/28/18 17:07 Alkaline Phosphatase 120 U/L (38-126) 07/28/18 17:07 Troponin I <0.012 ng/mL (0.000-0.034) 07/28/18 17:07 Total Protein 5.0 g/dL (6.3-8.2) L 07/28/18 17:07 Albumin 2.9 g/dL (3.5-5.0) L 07/28/18 17:07 Influenza Type A RNA Not Detected (Not Detectd) 07/28/18 18:03 Influenza Type B (PCR) Not Detected (Not Detectd) 07/28/18 18:03 CBC & Chem 7: 07/28/18 17:07 07/28/18 17:07 Labs: Abnormal Lab Results - Last 24 Hours (Table) 07/28/18 07/28/18 Range/Units 17:07 17:07 WBC 2.9 L (3.8-10.6) k/uL RBC 2.82 L (4.30-5.90) m/uL Hgb 9.2 L (13.0-17.5) gm/dL Hct 27.0 L (39.0-53.0) % RDW 16.8 H (11.5-15.5) % Lymphocytes # 0.4 L (1.0-4.8) k/uL Chloride 108 H (98-107) mmol/L AST 15 L (17-59) U/L Total Protein 5.0 L (6.3-8.2) g/dL Albumin 2.9 L (3.5-5.0) g/dL Assessment and Plan Plan: This is a 47-year-old male who presents to hospital with neutropenic fever along with shortness of breath and rib pain as well as constipation and abdominal dist ention. He was provided a azithromycin, cefepime and vancomycin in the emergency center. We will continue cefepime for now. Blood cultures are status received. Dietitian consult for severe protein calorie malnutrition. Dulcolax suppository ordered for constipation. Continue supportive care. Further conditions as patient regresses. The above dictated assessment and findings were discussed with Dr. Roque. The impression and plan of care have been directed as dictated. Guera Youngblood nurse practitioner acting as scribe for Dr. Roque.
[2018-07-29] MEDS ORDERED: VANCOMYCIN IV PER PHARMACY 1 EACH MISC MISCELLANE PRN (11:22)
[2018-07-29] MEDS ORDERED: CHLORPROMAZINE 10 MG PO PRN (11:22)
[2018-07-29] MEDS ORDERED: TEMAZEPAM 15 MG CAP PO PRN (11:23)
--- NOTE | 2018-07-29 11:45 | CT ---
EXAMINATION TYPE: CT angio chest DATE OF EXAM: 07/29/2018 COMPARISON: None HISTORY: Chest pain and Shortness of breath CT DLP: 370.5 mGycm CONTRAST: CT chest with contrast and 3D reconstruction with MIP imaging is performed with IV Contrast, patient injected with 100 mL of Isovue 370. Contrast-enhanced CT of the chest was performed through the course of the pulmonary arteries with momo g and mediastinal window settings submitted. 3D reconstruction with MIP imaging was also performed. Suboptimal timing of the contrast bolus. PULMONARY ARTERIES: There is suboptimal timing of the contrast bolus. No large central embolus is fito ntified. Smaller more peripheral emboli are difficult to exclude. Correlate clinically. LUNGS: Scattered groundglass infiltrates are noted. There is evidence of basilar atelectasis and pleu ral effusions. MEDIASTINUM: Thoracic aorta is of normal caliber,however, evaluation is limited given timing of the contrast bolus. If there is concern for thoracic aortic pathology consider HERB. Correlate clinicall y . The heart is not enlarged. No evidence for mediastinal mass. No mediastinal lymph nodes greater than 1cm. HILAR STRUCTURES: No evidence for mass. No hilar lymph nodes greater than 1 cm. UPPER ABDOMEN: No significant abnormality is seen. Osseous structures: Scattered lytic lesions redemonstrated which may reflect multiple myeloma or meta static disease. Correlate clinically. IMPRESSION: 1. There is suboptimal timing of the contrast bolus. No large central embolus is identified. Smaller more peripheral emboli are difficult to exclude. 2. Basilar atelectasis and pleural effusion scattered airspace infiltrates.
[2018-07-29] MEDS: HYDROmorphone 4 MG TABLET PO PRN (11:47)
[2018-07-29] MEDS: CEFEPIME 2 GM in SODIUM CHLORIDE 0.9% 100 ML IVPB SCH ×3 (11:47→23:06)
[2018-07-29] MEDS: KETOROLAC 30 MG/ML 1 ML VIAL IVP PRN ×2 (12:19→20:10)
[2018-07-29] MEDS: SULFAMETHOX-TMP 800-160MG 1 EACH TAB PO SCH (12:19)
--- NOTE | 2018-07-29 12:46 | XR ---
EXAMINATION TYPE: XR abdomen acute w cxr DATE OF EXAM: 07/29/2018 COMPARISON: Prior chest x-ray 07/28/2017, CT 07/25/2018 and 07/29/2017 HISTORY: Distention TECHNIQUE: Supine, upright, and left side down lateral decubitus views of the abdomen are obtained. FINDINGS: Patchy bibasilar density is noted. No pneumothorax. Retained contrast material present wit hin the renal collecting systems, ureters, urinary bladder, colon. There is no evidence for pneumoperitoneum. The bowel gas pattern is unremarkable as there is air throughout nondilated small and large bowel. No sizeable air fluid levels. No mass effects are seen. No unusual calcifications. IMPRESSION: Bibasilar atelectasis, correlate to exclude pneumonia.
--- NOTE | 2018-07-29 13:03 | US ---
EXAMINATION TYPE: US venous doppler duplex LE BI DATE OF EXAM: 07/29/2018 12:49 PM COMPARISON: NONE CLINICAL HISTORY: dvt. SOB SIDE PERFORMED: bilateral TECHNIQUE: The lower extremity deep venous system is examined utilizing real time linear array sonog roxie with graded compression, doppler sonography and color-flow sonography. VESSELS IMAGED: External Iliac Vein (EIV) Common Femoral Vein Deep Femoral Vein Greater Saphenous Vein * Femoral Vein Popliteal Vein Small Saphenous Vein * Proximal Calf Veins (* superficial vessels) Right Leg: No evidence of DVT Left Leg: No evidence of DVT IMPRESSION: No evidence for DVT at this time.
[2018-07-29] MEDS: VANCOMYCIN 1,500 MG in SODIUM CHLORIDE 0.9% 250 ML IVPB SCH ×2 (13:38→20:58)
[2018-07-29 14:59] LABS: Creatine Kinase MB 0.6 ng/mL (0.0-2.4)
[2018-07-29] MEDS: HYDROmorphone 0.5 MG/0.5 ML SYRINGE IVP PRN (17:57)
--- NOTE | 2018-07-29 18:22 | P.CONS ---
History of Present Illness - Reason for Consult Consult date: 07/29/18 multiple myeloma Requesting physician: Stephen Jaimes - Chief Complaint fever, abdominal dist - History of Present Illness Mr. Arthur is a very pleasant 47-year-old male patient who was initially seen in consult at [facility] 06/16/2018. At that time he presented with complaints of persistent left-sided rib pain, x 6 weeks, progressed in severity. Pain was no longer responding to [id number] pain medications. ER imaging revealed possibility of lytic lesions, CT CAP was performed showing lytic lesions in multiple areas including thoracic and lumbar spine, bilateral hips, right iliac bone and a right sixth rib fracture, calcium was elevated. No other visceral masses or adenopathy was seen. Workup did unfortunately show an elevated kappa light chain, suppression of lambda light chain, normal immunoglobulins. Bone marrow biopsy and aspiration was performed 06/18/2018 showing 60-70% involvement with kappa restricted monoclonal plasma cells. He was sent to radiation for the rib cage which he completed on 06/28/2018. Patient is currently status post cycle 1 days 1, 4 and 8 of Revlimid, Dex, velcade, he is due for day 11 on 07/19. Patient was seen in the office for follow-up visit. He was recently admitted with fevers and treated for pneumonia, during this admission abdominal bloating began, xray of abdomen was negative, bowels moving, no nausea so he was discharged. His abdomen continued to increased and he was seny ct and, no onstruction. Patient called yesterday with fevers 102 at home, advised to be seen back in emergency Abdomen is still very distended, hollow, firm, no pain, no nausea. Still with pain at the begining of movement, no unilateral weakness or paresthesias. 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 No experience. No recent travel. No significant tobacco or alcohol use or recreational drug use. 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 No experience. No recent travel. No significant tobacco or alcohol use or recreational drug use. 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 Past Drug Use History: None Reported - Past Family History Father Family Medical History: Hypertension Medications and Allergies Home Medications Medication Instructions Recorded Confirmed Type Loratadine [Claritin] 10 mg PO HS 06/16/18 07/28/18 History ALPRAZolam [Xanax] 0.25 mg PO BID PRN 07/18/18 07/28/18 History Acyclovir [Zovirax] 400 mg PO BID 07/18/18 07/28/18 History Aspirin [Adult Low Dose Aspirin EC] 81 mg PO DAILY 07/18/18 07/28/18 History Lactulose [Constulose] 20 gm PO BID 07/18/18 07/28/18 History Lenalidomide [Revlimid] 25 mg PO DIRECTED 07/18/18 07/28/18 History Sulfamethox-Tmp 800-160Mg [Bactrim 1 tab PO MOWEFR 07/18/18 07/28/18 History DS 800-160 mg] chlorproMAZINE [Thorazine] 10 mg PO TID PRN 07/18/18 07/28/18 History fentaNYL 100MCG/HR PATCH 1 patch TRANSDERM Q48H 07/18/18 07/28/18 History [Duragesic 100MCG/HR] tiZANidine [Zanaflex] 2 mg PO HS 07/18/18 07/28/18 History Venlafaxine HCl ER [Effexor XR] 75 mg PO HS #30 cap.er.24h 07/20/18 07/28/18 Rx Dicyclomine [Bentyl] 20 mg PO BID 07/28/18 07/28/18 History Famotidine [Pepcid] 20 mg PO QAM 07/28/18 07/28/18 History HYDROmorphone [Dilaudid] 4 mg PO Q6H PRN 07/28/18 07/28/18 History Lubiprostone [Amitiza] 24 mcg PO BID 07/28/18 07/28/18 History Mirtazapine [Remeron] 15 mg PO HS 07/28/18 07/28/18 History Allergies Allergy/AdvReac Type Severity Reaction Status Date / Time morphine Allergy Itching Verified 07/28/18 18:47 Physical Exam Vitals: Vital Signs Temp Pulse Pulse Resp BP BP Pulse Ox 07/29/18 16:50 80 07/29/18 16:34 82 95 07/29/18 16:00 98.1 F 83 16 121/63 98 07/29/18 15:00 97.8 F 49 L 16 110/78 100 07/29/18 11:03 84 07/29/18 10:56 80 07/29/18 06:53 84 07/29/18 06:40 85 98 07/29/18 05:13 98.0 F 95 17 117/73 98 07/29/18 00:36 82 07/29/18 00:25 82 96 07/28/18 22:00 82 18 07/28/18 21:22 97.0 F L 82 18 141/65 98 07/28/18 19:45 91 16 104/62 97 07/28/18 19:28 90 07/28/18 19:20 89 Intake and Output 07/29/18 07/29/18 07/29/18 06:59 14:59 22:59 Other: # Voids 2 # Bowel Movements 0 Weight 81.647 kg Gen: ALert and Oriented, NAD Head: NCNT Mucus Memb: Mild thrush Lungs: Diminished Bilateral Bases Heart: Reg Reg Abdomen: Distended and Firm, Pos BS Ext: Gen Edema, no rashes Neuro: No sensory or motor deficits Psych: Calm although Expresses anxiety Results CBC & Chem 7: 07/30/18 06:24 07/30/18 11:24 Labs: Abnormal Lab Results - Last 24 Hours (Table) 07/29/18 07/29/18 Range/Units 12:00 14:11 D-Dimer 1.07 H (<0.60) mg/L FEU Total Creatine Kinase 46 L (55-170) U/L CT scan - abdomen: report reviewed CT scan - chest: report reviewed CT scan - pelvis: report reviewed Assessment and Plan Plan: Assessment and Recommendations: Multiple Myeloma: - On Revlimid, Dexamethasone, and Velcade - Status Post 3 of 4 Velcade, Last held secondary to hospitalization - Ok to continue Rev and Dex while inpatient - Prophylaxic Acyclovir and Bactrim, as well as ASA per guidelines for RVD treatment - Restage as concern with clinical presentation for nephrotic syndrome, progressive disease or initial response of first cycle of chemotherapy Constipation: Induced by narcotics and lack of movement - AMitiza was started as outpatient to continue, no significant improvement - COntinue bowel regimen while inpatient and will send for authorization for next line therapy if still not improvement. - No obstruction or ileus noted on exams - CT or Xrays Myopathy and sedetary: - Secondary to pain with movement - Continue to encourage to get up and out of bed and increase movement - VTE Prophylaxis is recommended Fevers: Recurrent - Pann cultures ordered and pending - ? COmponent of pneumonia - Tumor or fevers related to myeloma - Afebrile since admission Intractable Pain Secondary to Multiple Myeloma Neoplastic Process: - Worse with Movement - Fentanyl Patch to continue and breakthrough medication - Evaluation for pain block is resonable, will ask PMR to assess Normocytic Anemia: - Secondary to chemo and malignancy - Monitor CBC Hypocalcemia: - Secondary Biphosphonate recently received on 07.12.18 - This is expected, will add Tums TID for Calcium Supp Pneumonia: - Unclear if pneumonia versus other - Infectious disease is follwoing - CT Chest: Extravascular Fluid shifts again noted, no Evidence of Pulm EMbolism Severe Protein Calorie Malnutrition - TPN and Picc Line with Dietary consult ordered Anxiety/Depression - He is agitated today and restless - Effexor at HS to continue - Remeron for appetite and sleep (been suffering insomnia and since starting appetite and sleep improved, to continue) Abdominal Distention: - Flat abdominal Xay no Ileus or Obstruction - CT abdomen and pelvis have been reviewed Plan: - he has worsening third spacing, Renal, Liver function are within normal limts although concern for a presentation of nephrotic syndrome, progressive myeloma versus underlying cardiac etiology will be worked up - Restaging with SPEP, 24 hour Urine protein, KLFLC - Picc Line PLacement and initiation of temporary TPN for Severe PCM - Cardiology to evaluate and Echocardiogram Consuelo FLORES
[2018-07-29 20:03] LABS: Appearance,Urine Clear (Clear); Bilirubin,Urine Negative (Negative); Blood,Urine Negative (Negative); Color,Urine Yellow; Glucose,Urine (UA) Negative (Negative); Ketones,Urine Negative (Negative); Leukocyte Esterase,Urine Negative (Negative); Nitrite,Urine Negative (Negative); PH, Urine 5.5 (5.0-8.0); Protein,Urine Trace (Negative); Urobilinogen,Urine <2.0 mg/dL (<2.0)
[2018-07-29] MEDS: LORATADINE 10 MG TAB PO SCH (20:09)
[2018-07-29] MEDS: LACTULOSE 20 GM/30 ML CUP PO SCH (20:10)
[2018-07-29] MEDS: HEPARIN SODIUM,PORCINE 5,000 UNIT/ML 1 ML VIAL SQ SCH (20:10)
--- NOTE | 2018-07-29 20:31 | HP ---
HISTORY AND PHYSICAL DATE OF SERVICE: 07/29/2018 CHIEF COMPLAINTS: Shortness of breath and cough and chest pain. HISTORY OF PRESENT ILLNESS: This 47-year-old gentleman with a past medical history of multiple medical problems including multiple myeloma, history of hypertension, history of depression, being followed by Dr. Pate in the outpatient setting was recently admitted with pneumonia and fever with left lower pneumonia suspected. Patient improved significantly. Patient went home and Pulmonary also saw the patient during the hospitalization. Currently after going home, the patient has finished antibiotic treatment and the patient was to the baseline, but subsequently yesterday she was wheezing in the lungs and developed shortness of breath and as well as some chest pain in the left side of the lower chest which increase. Patient came to [facility] and was admitted for further evaluation and treatment. Evaluation showed a WBC 2.2, hemoglobin is 9.2, and D-dimer is elevated 1.07, but CT scan and CT angio showed no pulmonary embolism but activation but some evidence of in the the basal areas. Influenza negative. Patient admitted to the hospital for further evaluation and treatment. There is no history of any rigors or chills. No history of headache, loss of consciousness, seizures at this time. PAST MEDICAL HISTORY: History of multiple myeloma, history of pneumonia, history of hypertension, history of depression. MEDICATIONS: Prior to admission include: 1. Remeron 50 mg q.h.s. 2. Zanaflex 2 mg q.h.s. 3. Effexor XR 75 mg q.h.s. 4. Duragesic patch 1 patch q.48h hours. 5. Thorazine 10 mg t.i.d. p.r.n. 6. Bactrim DS 1 p.o. Sunday, Sunday, Sunday. 7. Amitiza 24 mcg p.o. b.i.d. 8. Claritin 10 mg p.o. q.h.s. 9. Revlimid 25 mg p.r.n. 10.Lactulose 20 g p.o. b.i.d. 11.Dilaudid 4 mg q.6 p.r.n. 12.Pepcid 20 mg q.a.m. 13.Bentyl 20 mg p.o. b.i.d. 14.Aspirin 81 mg p.o. daily. 15.Zovirax 400 mg p.o. b.i.d. 16.Xanax 0.5 b.i.d. p.r.n. ALLERGIES: REVIEWED AND INCLUDE MORPHINE. FAMILY HISTORY: History of diabetes in the family. 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 Occasional alcohol. No history of smoking. REVIEW OF SYSTEMS: ENT: No diminished vision. No diminished hearing. CARDIOVASCULAR: No angina or palpitations. RESPIRATORY: As mentioned earlier. GI no nausea or vomiting. : No dysuria. NERVOUS SYSTEM: No numbness or weakness. ALLERGY/IMMUNOLOGY: No asthma, hayfever. MUSCULOSKELETAL: As mentioned earlier. HEMATOLOGY/ONCOLOGY: No history of anemia. ENDOCRINE: As mentioned earlier. CONSTITUTIONAL: As mentioned earlier. Dermatology: Negative. Rheumatology: Negative. Psychiatry: As mentioned earlier. PHYSICAL EXAMINATION: The patient is alert and oriented times three. Pulse is 83, blood pressure 120/60, respiratory rate 16, temperature 98.4, pulse ox 98% on room air. HEENT: Conjunctivae normal. Oral mucosa moist. NECK is no jugular venous distention. No carotid bruit. No lymph node enlargement. CARDIOVASCULAR: S1, S2 muffled. RESPIRATORY: Breath sounds diminished in the bases. A few scattered rhonchi. No crackles. ABDOMEN: Soft, mild diffuse distension. No mass palpable. Legs are no edema. No swelling. Central nervous system: No focal deficits. LAB STUDIES: WBC 2.9, hemoglobin 9.2. ASSESSMENT: 1. Bibasilar pneumonia possibly with failure of outpatient treatment, possibly hospital acquired pneumonia. 2. Chest pain, rule out pericarditis. 3. Increased D-dimer without any evidence of pulmonary embolism. 4. Bicytopenia with leukopenia and anemia. 5. Hypoalbuminemia. 6. Multiple myeloma. 7. History of hypertension. 8. History of depression. RECOMMENDATIONS AND DISCUSSION: In this 47-year-old gentleman who presented with multiple complex medical issues, we will monitor the patient closely, continue the current medications, symptomatic treatment. Continue with broad-spectrum IV antibiotics. Obtain cultures. Otherwise, I would recommend transfer to telemetry and cardiology evaluation. 2D echo with Doppler was also ordered. I would recommend to continue current medications. Otherwise, leg is negative for DVT. empiric antibiotics will be initiated. I would recommend cefepime and vancomycin. Prognosis guarded because of multiple complex medical issues. Further recommendations to follow. A copy of dictation being forwarded to Dr. Pate, who is the primary care physician. See orders for details. MMODL / IJN: [id number] / MTDD
[2018-07-29 20:55] LABS: Specific Gravity,Urine >1.050 (1.001-1.035)
[2018-07-29] MEDS: VENLAFAXINE HCL ER 75 MG CAP PO SCH (20:57)
[2018-07-29] MEDS: ACYCLOVIR 200 MG CAP PO SCH (20:58)
--- NOTE | 2018-07-29 22:05 | P.CONS ---
History of Present Illness - Reason for Consult Consult date: 07/29/18 - Chief Complaint Increasing abdominal pain and shortness of breath - History of Present Illness Pleasant 47-year-old male who earlier this year had a sudden onset of significant pain related to his ribs and joints. 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 He has been initiated to chemotherapy with Velcade was doing relatively well. Shortly after that event he had the onset of generalized malaise, fevers and shortness of breath and not feeling well and consequently presented to Hospital. There was evidence of a new left lower infiltration the patient was admitted in antibiotic therapy started. He responded well and was discharged home. Now presents with onset of fever and some chills and generalized malaise and significant increased amount of pain that he is having through his chest and back with increasing abdominal distention and constipation and feeling quite poorly. Because of his immunocompromised status he was brought into hospital and admitted. Infectious disease consultation was requested. He did have outpatient computed tomography scan without evidence of perforation obstruction or diverticulitis but there was some notation of some generalized anasarca. Review of Systems HEENT:Denies headache or acute visual change. Denies sinus or mouth discomforts. Denies neck stiffness or pain. Denies significant oral cavity pain. Denies difficulty on swallowing. Lungs: As per the HPI had cough and sputum production but no hemoptysis Cardiovascular: He's had progressive shortness of breath dyspnea on exertion no true orthopnea not having distinct substernal chest pain but does have severe rib pain thought to be related to his multiple myeloma Gastrointestinal: No nausea emesis or diarrhea but has some abdominal distention Musculoskeletal: Haschronic significant muscular skeletal pain from his myeloma Skin: Denies new rash or lesions. No new ulcers or wounds are related.. Neuro: Denies headache or visual change. Denies any new onset weakness or difficulty with ambulation. Denies falls or seizures. 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 No experience. No recent travel. No significant tobacco or alcohol use or recreational drug use. 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 No experience. No recent travel. No significant tobacco or alcohol use or recreational drug use. 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 Past Drug Use History: None Reported - Past Family History Father Family Medical History: Hypertension Medications and Allergies Home Medications and Allergies Comment(s): Current Medications Acetaminophen (Tylenol Tab) 500 mg PO Q6HR PRN PRN Reason: Fever and/ or Pain Acyclovir (Zovirax) 400 mg PO BID [facility] Last Admin: 07/29/18 20:58 Dose: 400 mg Documented by: Albuterol/Ipratropium (Duoneb 0.5 Mg-3 Mg/3 Ml Soln) 3 ml INHALATION RT-Q4H [facility] Last Admin: 07/29/18 19:55 Dose: 3 ml Documented by: Alprazolam (Xanax) 0.25 mg PO BID PRN PRN Reason: Anxiety Aspirin (Aspirin) 81 mg PO DAILY [facility] Dicyclomine HCl (Bentyl) 20 mg PO BID [facility] Last Admin: 07/29/18 20:09 Dose: 20 mg Documented by: Famotidine (Pepcid) 20 mg PO QAM [facility] Fentanyl (Duragesic 100mcg/Hr Patch) 1 patch TRANSDERM Q48H [facility] Furosemide (Lasix) 20 mg IV Q12HR [facility] Last Admin: 07/29/18 20:18 Dose: 20 mg Documented by: Heparin Sodium (Porcine) (Heparin) 5,000 unit SQ Q12HR [facility] Last Admin: 07/29/18 20:10 Dose: 5,000 unit Documented by: Hydromorphone HCl (Dilaudid) 0.5 mg IVP Q3HR PRN PRN Reason: Severe Pain Last Admin: 07/29/18 17:57 Dose: 0.5 mg Documented by: Cefepime HCl 2 gm/ Sodium (Chloride) 100 mls @ 200 mls/hr IVPB Q8HR [facility] Last Admin: 07/29/18 16:01 Dose: 200 mls/hr Documented by: Vancomycin HCl 1,500 mg/ (Sodium Chloride) 250 mls @ 125 mls/hr IVPB Q8H [facility] Last Admin: 07/29/18 20:58 Dose: 125 mls/hr Documented by: Ketorolac Tromethamine (Toradol) 15 mg IVP Q6HR PRN PRN Reason: Breakthrough Pain Stop: 08/02/18 11:24 Last Admin: 07/29/18 20:10 Dose: 15 mg Documented by: Lactulose (Cephulac) 20 gm PO BID [facility] Last Admin: 07/29/18 20:10 Dose: 20 gm Documented by: Loratadine (Claritin) 10 mg PO [facility] Last Admin: 07/29/18 20:09 Dose: 10 mg Documented by: Mirtazapine (Remeron) 15 mg PO [facility] Last Admin: 07/29/18 00:02 Dose: 15 mg Documented by: Miscellaneous Information (Vancomycin Trough Due) 0 each MISCELLANE DIRECTED ONE Stop: 07/30/18 11:01 Non-Formulary Medication (Chlorpromazine) 10 mg PO TID PRN PRN Reason: HICCUPS Non-Formulary Medication (Lubiprostone [Amitiza]) 24 mcg PO BID [facility] Tizanidine HCl (Zanaflex) 2 mg PO [facility] Last Admin: 07/29/18 20:57 Dose: 2 mg Documented by: Trimethoprim/Sulfamethoxazole (Bactrim Ds) 1 each PO MOWEFR [facility] Last Admin: 07/29/18 12:19 Dose: 1 each Documented by: Venlafaxine HCl (Effexor Xr) 75 mg PO [facility] Last Admin: 07/29/18 20:57 Dose: 75 mg Documented by: Home Medications Medication Instructions Recorded Confirmed Type Loratadine [Claritin] 10 mg PO 06/16/18 07/28/18 History ALPRAZolam [Xanax] 0.25 mg PO BID PRN 07/18/18 07/28/18 History Acyclovir [Zovirax] 400 mg PO BID 07/18/18 07/28/18 History Aspirin [Adult Low Dose Aspirin EC] 81 mg PO DAILY 07/18/18 07/28/18 History Lactulose [Constulose] 20 gm PO BID 07/18/18 07/28/18 History Lenalidomide [Revlimid] 25 mg PO DIRECTED 07/18/18 07/28/18 History Sulfamethox-Tmp 800-160Mg [Bactrim 1 tab PO MOWEFR 07/18/18 07/28/18 History DS 800-160 mg] chlorproMAZINE [Thorazine] 10 mg PO TID PRN 07/18/18 07/28/18 History fentaNYL 100MCG/HR PATCH 1 patch TRANSDERM Q48H 07/18/18 07/28/18 History [Duragesic 100MCG/HR] tiZANidine [Zanaflex] 2 mg PO HS 07/18/18 07/28/18 History Venlafaxine HCl ER [Effexor XR] 75 mg PO HS #30 cap.er.24h 07/20/18 07/28/18 Rx Dicyclomine [Bentyl] 20 mg PO BID 07/28/18 07/28/18 History Famotidine [Pepcid] 20 mg PO QAM 07/28/18 07/28/18 History HYDROmorphone [Dilaudid] 4 mg PO Q6H PRN 07/28/18 07/28/18 History Lubiprostone [Amitiza] 24 mcg PO BID 07/28/18 07/28/18 History Mirtazapine [Remeron] 15 mg PO HS 07/28/18 07/28/18 History Allergies Allergy/AdvReac Type Severity Reaction Status Date / Time morphine Allergy Itching Verified 07/28/18 18:47 Physical Exam Vitals: Vital Signs Temp Pulse Pulse Resp BP Pulse Ox 07/29/18 20:08 80 07/29/18 19:55 84 07/29/18 16:50 80 07/29/18 16:34 82 95 07/29/18 16:00 98.1 F 83 16 121/63 98 07/29/18 15:00 97.8 F 49 L 16 110/78 100 07/29/18 11:03 84 07/29/18 10:56 80 07/29/18 06:53 84 07/29/18 06:40 85 98 07/29/18 05:13 98.0 F 95 17 117/73 98 07/29/18 00:36 82 07/29/18 00:25 82 96 07/28/18 22:00 82 18 Intake and Output 07/29/18 07/29/18 07/29/18 06:59 14:59 22:59 Intake Total 240 Balance 240 Intake: Oral 240 Other: # Voids 2 # Bowel Movements 0 Weight 81.647 kg Pleasant 47-year-old male, somewhat thin build has developed increase in abdominal girth with increased discomfort HEENT: Anicteric conjunctiva are pink and moist nasal mucosa grossly intact without significant lesions, there is no thrush. Neck: The neck is supple without significant lymphadenopathy or thyromegaly. Lungs: Symmetrical air entry few crackles at the basis no significant wheezing Heart: Regular rate and rhythm with an audible S1-S2, no S3 no S4. There is no significant murmur click or rub, PMI was nondisplaced. Abdomen: Minimal distention, There was no guarding or rebound. The tissue to the abdominal wall and flanks has edema Extremities: The upper extremities have excellent pulses they are symmetric, no significant petechiae or telangiectasia. No splinter hemorrhages were noted. Lower extremities have now developed some edema The peripheral pulses were 2+ and symmetric. Neuro: Awake alert oriented to person place and time. There are no acute new gross focal sensory motor deficits. Results CBC & Chem 7: 07/28/18 17:07 07/28/18 17:07 Labs: Abnormal Lab Results - Last 24 Hours (Table) 07/29/18 07/29/18 07/29/18 Range/Units 12:00 14:11 19:12 ESR 110 H (0-15) mm/hr D-Dimer 1.07 H (<0.60) mg/L FEU Total Creatine Kinase 46 L (55-170) U/L C-Reactive Protein (<10.0) mg/L Ur Specific [place] (1.001-1.035) Urine Protein (Negative) 07/29/18 07/29/18 Range/Units 19:12 Unknown ESR (0-15) mm/hr D-Dimer (<0.60) mg/L FEU Total Creatine Kinase (55-170) U/L C-Reactive Protein 59.4 H (<10.0) mg/L Ur Specific [place] >1.050 H (1.001-1.035) Urine Protein Trace H (Negative) Microbiology - Last 24 Hours (Table) 07/28/18 17:07 Blood Culture - Preliminary Blood No Growth after 24 hours Laboratory Results WBC 2.9 k/uL (3.8-10.6) L 07/28/18 17:07 RBC 2.82 m/uL (4.30-5.90) L 07/28/18 17:07 Hgb 9.2 gm/dL (13.0-17.5) L 07/28/18 17:07 Hct 27.0 % (39.0-53.0) L 07/28/18 17:07 MCV 95.5 fL (80.0-100.0) 07/28/18 17:07 MCH 32.5 pg (25.0-35.0) 07/28/18 17:07 MCHC 34.0 g/dL (31.0-37.0) 07/28/18 17:07 RDW 16.8 % (11.5-15.5) H 07/28/18 17:07 Plt Count 273 k/uL (150-450) 07/28/18 17:07 Neutrophils % 64 % 07/28/18 17:07 Lymphocytes % 13 % 07/28/18 17:07 Monocytes % 18 % 07/28/18 17:07 Eosinophils % 2 % 07/28/18 17:07 Basophils % 0 % 07/28/18 17:07 Neutrophils # 1.8 k/uL (1.3-7.7) 07/28/18 17:07 Lymphocytes # 0.4 k/uL (1.0-4.8) L 07/28/18 17:07 Monocytes # 0.5 k/uL (0-1.0) 07/28/18 17:07 Eosinophils # 0.1 k/uL (0-0.7) 07/28/18 17:07 Basophils # 0.0 k/uL (0-0.2) 07/28/18 17:07 Anisocytosis Slight 07/28/18 17:07 Macrocytosis Slight 07/28/18 17:07 ESR 110 mm/hr (0-15) H 07/29/18 19:12 PT 10.7 sec (9.0-12.0) 07/28/18 17:07 INR 1.0 (<1.2) 07/28/18 17:07 APTT 26.7 sec (22.0-30.0) 07/28/18 17:07 D-Dimer 1.07 mg/L FEU (<0.60) H 07/29/18 12:00 Sodium 138 mmol/L (137-145) 07/28/18 17:07 Potassium 4.4 mmol/L (3.5-5.1) 07/28/18 17:07 Chloride 108 mmol/L (98-107) H 07/28/18 17:07 Carbon Dioxide 24 mmol/L (22-30) 07/28/18 17:07 Anion Gap 6 mmol/L 07/28/18 17:07 BUN 10 mg/dL (9-20) 07/28/18 17:07 Creatinine 0.75 mg/dL (0.66-1.25) 07/28/18 17:07 Est GFR (CKD-EPI)AfAm >90 (>60 ml/min/1.73 sqM) 07/28/18 17:07 Est GFR (CKD-EPI)NonAf >90 (>60 ml/min/1.73 sqM) 07/28/18 17:07 Glucose 95 mg/dL (74-99) 07/28/18 17:07 Plasma Lactic Acid Edgar 0.9 mmol/L (0.7-2.0) 07/28/18 17:07 Calcium 8.6 mg/dL (8.4-10.2) 07/28/18 17:07 Total Bilirubin 0.7 mg/dL (0.2-1.3) 07/28/18 17:07 AST 15 U/L (17-59) L 07/28/18 17:07 ALT 43 U/L (21-72) 07/28/18 17:07 Alkaline Phosphatase 120 U/L (38-126) 07/28/18 17:07 Total Creatine Kinase 46 U/L (55-170) L 07/29/18 14:11 CK-MB (CK-2) 0.6 ng/mL (0.0-2.4) 07/29/18 14:11 CK-MB (CK-2) Rel Index 1.3 07/29/18 14:11 Troponin I <0.012 ng/mL (0.000-0.034) 07/29/18 14:11 C-Reactive Protein 59.4 mg/L (<10.0) H 07/29/18 19:12 NT-Pro-B Natriuret Pep 601 pg/mL 07/29/18 19:12 Total Protein 5.0 g/dL (6.3-8.2) L 07/28/18 17:07 Albumin 2.9 g/dL (3.5-5.0) L 07/28/18 17:07 Urine Color Yellow 07/29/18 Unknown Urine Appearance Clear (Clear) 07/29/18 Unknown Urine pH 5.5 (5.0-8.0) 07/29/18 Unknown Ur Specific [place] >1.050 (1.001-1.035) H 07/29/18 Unknown Urine Protein Trace (Negative) H 07/29/18 Unknown Urine Glucose (UA) Negative (Negative) 07/29/18 Unknown Urine Ketones Negative (Negative) 07/29/18 Unknown Urine Blood Negative (Negative) 07/29/18 Unknown Urine Nitrite Negative (Negative) 07/29/18 Unknown Urine Bilirubin Negative (Negative) 07/29/18 Unknown Urine Urobilinogen <2.0 mg/dL (<2.0) 07/29/18 Unknown Ur Leukocyte Esterase Negative (Negative) 07/29/18 Unknown Influenza Type A RNA Not Detected (Not Detectd) 07/28/18 18:03 Influenza Type B (PCR) Not Detected (Not Detectd) 07/28/18 18:03 Microbiology 07/28/18 17:07 Blood Blood Culture - Preliminary No Growth after [address] scan - abdomen: report reviewed (Evidence of anasarca multiple lytic lesions atelectasis left pleural effusion) CT scan - chest: report reviewed (CTA without PE) Assessment and Plan (1) History of multiple myeloma Current Visit: Yes Status: Acute Code(s): Z85.79 - PRSNL HX OF MALIG NEOPLM OF LYMPHOID, HEMATPOETC & REL TISS SNOMED Code(s): 714927471033151 (2) Fever Narrative/Plan: 47-year-old male myeloma was recently discharged from hospital with concerns pneumonia represents back feeling very poorly. Increasing abdominal distention increasing difficulty with eating and drinking food and having some constipation. He developed increasing edema to the abdominal wall area is "quite uncomfortable. Some diuretic therapy was added to see if this cannot help with this evidence of some volume overload. With his multiple myeloma the patient is quite immunocompromised in cefepime and vancomycin have been added. He is on prophylaxis with antiviral therapy and pneumocystis prophylaxis also. Cultures are process will further help direct antibiotic therapy. Ongoing supportive care. Echocardiogram to be performed to evaluate cardiac status. Maneuvers to improve his pain control are also in process with no evidence of any deep venous thrombosis seen at this point in time. The patient is having great difficulties with pain and would query if the anesthesiology group or interventional radiology could not do a pain block to help us that he can pain is having from his multiple myeloma. Current Visit: Yes Status: Acute Code(s): R50.9 - FEVER, UNSPECIFIED SNOMED Code(s): 774110090 (3) Anasarca Current Visit: Yes Status: Acute Code(s): R60.1 - GENERALIZED EDEMA SNOMED Code(s): 463608724
[2018-07-29] MEDS: ACETAMINOPHEN TAB 500 MG TAB PO PRN (23:14)
[2018-07-30] MEDS: NON-FORMULARY DRUG (Lubiprostone [Amitiza] 24 MCG) PO SCH ×3 (02:48→21:38)
[2018-07-30] MEDS: IPRATROPIUM-ALBUTEROL 3 ML NEB INHALATION SCH ×6 (03:04→19:24)
[2018-07-30 03:23] LABS: Protein, Total 4.6 g/dL (6.2-8.2)
[2018-07-30] MEDS: VANCOMYCIN 1,500 MG in SODIUM CHLORIDE 0.9% 250 ML IVPB SCH ×3 (03:34→20:35)
[2018-07-30] MEDS: HYDROmorphone 0.5 MG/0.5 ML SYRINGE IVP PRN ×4 (03:38→22:41)
[2018-07-30 07:08] LABS: Basophils % (A) 1 %; Eosinophils # (A) 0.1 k/uL (0-0.7); Eosinophils % (A) 4 %; HGB 8.3 gm/dL (13.0-17.5); Lymphocytes # (A) 0.3 k/uL (1.0-4.8); Lymphocytes % (A) 16 %; MCH 32.7 pg (25.0-35.0); MCHC 33.2 g/dL (31.0-37.0); MCV 98.7 fL (80.0-100.0); Mean Platelet Volume 7.4; Monocytes # (A) 0.2 k/uL (0-1.0); Monocytes % (A) 12 %; Neutrophils # (A) 1.3 k/uL (1.3-7.7); Neutrophils % (A) 64 %; Platelet Count 300 k/uL (150-450); RBC 2.53 m/uL (4.30-5.90); RDW 14.5 % (11.5-15.5)
[2018-07-30 07:32] LABS: Prothrombin Time 10.9 sec (9.0-12.0)
[2018-07-30 08:16] LABS: Albumin 2.7 g/dL (3.5-5.0); Anion Gap 6 mmol/L; Carbon Dioxide 24 mmol/L (22-30); Chloride 108 mmol/L (98-107); Glucose 96 mg/dL (74-99); Potassium 4.2 mmol/L (3.5-5.1); Sodium 138 mmol/L (137-145); Total Protein 4.8 g/dL (6.3-8.2)
[2018-07-30 08:17] LABS: ALT 32 U/L (21-72); AST 11 U/L (17-59); Alkaline Phosphatase 105 U/L (38-126); Blood Urea Nitrogen 13 mg/dL (9-20); Calcium 7.6 mg/dL (8.4-10.2); Magnesium 1.8 mg/dL (1.6-2.3); Total Bilirubin 0.4 mg/dL (0.2-1.3)
[2018-07-30] MEDS: LACTULOSE 20 GM/30 ML CUP PO SCH ×2 (09:45→21:36)
[2018-07-30] MEDS: HEPARIN SODIUM,PORCINE 5,000 UNIT/ML 1 ML VIAL SQ SCH ×2 (09:46→21:36)
[2018-07-30] MEDS: ASPIRIN 81 MG PO SCH (09:46)
[2018-07-30] MEDS: FAMOTIDINE 20 MG TAB PO SCH (09:46)
[2018-07-30] MEDS: DICYCLOMINE 20 MG TAB PO SCH ×2 (09:46→21:36)
[2018-07-30] MEDS: FUROSEMIDE 10 MG/ML 2 ML VIAL IV SCH ×2 (09:46→21:35)
[2018-07-30] MEDS: ACYCLOVIR 200 MG CAP PO SCH ×2 (09:47→21:37)
[2018-07-30] MEDS: CEFEPIME 2 GM in SODIUM CHLORIDE 0.9% 100 ML IVPB SCH ×3 (10:01→23:46)
[2018-07-30] MEDS: KETOROLAC 30 MG/ML 1 ML VIAL IVP PRN ×2 (10:17→16:51)
[2018-07-30 10:59] LABS: Albumin 2.54 g/dL (3.80-4.90); Gamma Globulin 0.31 g/dL (0.70-1.50)
[2018-07-30] MEDS ORDERED: VANCOMYCIN TROUGH DUE 1 EACH MISC MISCELLANE ONE (11:00)
[2018-07-30 11:26] VITALS: BMI 28.0
--- NOTE | 2018-07-30 12:16 | ECHOF ---
Referral Reason: MEASUREMENTS -------- HEIGHT: 170.2 cm WEIGHT: 81.6 kg BP: 117/73 RVIDd: 2.7 cm (< 3.3) IVSd: 1.0 cm (0.6 - 1.1) LVIDd: 4.8 cm (3.9 - 5.3) LVPWd: 1.1 cm (0.6 - 1.1) IVSs: 1.4 cm LVIDs: 3.0 cm LVPWs: 1.7 cm LA Diam: 3.6 cm (2.7 - 3.8) LAESV Index (A-L): 28.27 ml/m Ao Diam: 3.6 cm (2.0 - 3.7) AV Cusp: 2.4 cm (1.5 - 2.6) MV EXCURSION: 18.221 mm (> 18.000) MV EF SLOPE: 136 mm/s (70 - 150) EPSS: 0.3 cm MV E Isaiah: 1.51 m/s MV DecT: 175 ms MV A Isaiah: 0.71 m/s MV E/A Ratio: 2.14 RAP: 5.00 mmHg RVSP: 33.46 mmHg FINDINGS -------- Sinus rhythm. This was a technically good study. The left ventricular size is normal. There is borderline concentric left ventricular hypertrophy. Overall left ventricular systolic function is normal with, an EF between 60 - 65 %. The right ventricle is normal in size. Normal LA size by volume 22+/-6 ml/m2. The right atrium is normal in size. The aortic valve is trileaflet and appears structurally normal. Mild mitral regurgitation is present. Mild tricuspid regurgitation present. Right ventricular systolic pressure is normal at < 35 mmHg. Trace/mild (physiologic) pulmonic regurgitation. The aortic root size is normal. Normal inferior vena cava with normal inspiratory collapse consistent with estimated right atrial pre ssure of 5 mmHg. There is no pericardial effusion. CONCLUSIONS -------- 1. Sinus rhythm. 2. This was a technically good study. 3. The left ventricular size is normal. 4. There is borderline concentric left ventricular hypertrophy. 5. Overall left ventricular systolic function is normal with, an EF between 60 - 65 %. 6. The right ventricle is normal in size. 7. Normal LA size by volume 22+/-6 ml/m2. 8. The right atrium is normal in size. 9. The aortic valve is trileaflet and appears structurally normal. 10. Mild mitral regurgitation is present. 11. Mild tricuspid regurgitation present. 12. Right ventricular systolic pressure is normal at < 35 mmHg. 13. Trace/mild (physiologic) pulmonic regurgitation. 14. The aortic root size is normal. 15. Normal inferior vena cava with normal inspiratory collapse consistent with estimated right atrial pressure of 5 mmHg. 16. There is no pericardial effusion. SUPERVISING NURSE: Soheila Jerez RDCS
--- NOTE | 2018-07-30 12:16 | P.CRDCN ---
History of Present Illness History of present illness: This is Dr. Ca dictating a consult on this patient The patient was interviewed and examined by me IMPRESSION / ASSESSMENT: Patient complaining of shortness of breath and labored breathing and the discomfort in the chest but with normal cardiac enzymes normal twelve-lead ECG and currently being treated for multiple myeloma Most of his chest pain is related pain related and therefore he is also having difficulty breathing a taking a deep breath because of lytic lesions in his ribs PLAN: 2-D echo and Doppler study to assess cardiac structure and function and assess the pericardium HPI Patient presented with labored breathing. He was recently treated for pneumonia. He feels worse in the last one week. He has some vague discomfort in the chest Currently being treated for multiple myeloma Normal troponins Normal 12-lead ECG Feels quite weak but there is no dizziness loss of consciousness. ROS: No fever chills or rigors, no cough, phlegm or expectoration, no nausea, vomiting or diarrhea, no hematuria, dysuria, no musculoskeletal complaints, no strokes or seizures, no skin lesions. EXAMINATION: Pulse rate in the 80s, blood pressure 108/56 mmHg temperature 98.9F Breath sounds are reduced bilaterally but there are no rhonchi no crackles Heart sounds are soft normal S1 normal S2 Abdomen is soft Extremities are warm no edema Prominent jugular veins with prominent a in the waves REVIEW OF LABS, ECG & MEDICAL DATA Twelve-lead ECG shows sinus rhythm normal MN narrow QRS daily normal ST segments with isolated inverted T waves in lead 3 White count 2000, hemoglobin 8.3, platelets 300,000 ESR 110 Magnesium 1.8 Normal renal function Past Medical History Past Medical History: Cancer, Hypertension Additional Past Medical History / Comment(s): Never taken hypertensive medicati on., Multiple Myeloma History of Any Multi-Drug Resistant Organisms: None Reported Past Surgical History: Appendectomy Past Anesthesia/Blood Transfusion Reactions: No Reported Reaction Past Psychological History: No Psychological Hx Reported, Depression 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 No experience. No recent travel. No significant tobacco or alcohol use or recreational drug use. 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 No experience. No recent travel. No significant tobacco or alcohol use or recreational drug use. 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 Past Drug Use History: None Reported - Past Family History Father Family Medical History: Hypertension Medications and Allergies Home Medications Medication Instructions Recorded Confirmed Type Loratadine [Claritin] 10 mg PO HS 06/16/18 07/28/18 History ALPRAZolam [Xanax] 0.25 mg PO BID PRN 07/18/18 07/28/18 History Acyclovir [Zovirax] 400 mg PO BID 07/18/18 07/28/18 History Aspirin [Adult Low Dose Aspirin EC] 81 mg PO DAILY 07/18/18 07/28/18 History Lactulose [Constulose] 20 gm PO BID 07/18/18 07/28/18 History Lenalidomide [Revlimid] 25 mg PO DIRECTED 07/18/18 07/28/18 History Sulfamethox-Tmp 800-160Mg [Bactrim 1 tab PO MOWEFR 07/18/18 07/28/18 History DS 800-160 mg] chlorproMAZINE [Thorazine] 10 mg PO TID PRN 07/18/18 07/28/18 History fentaNYL 100MCG/HR PATCH 1 patch TRANSDERM Q48H 07/18/18 07/28/18 History [Duragesic 100MCG/HR] tiZANidine [Zanaflex] 2 mg PO HS 07/18/18 07/28/18 History Venlafaxine HCl ER [Effexor XR] 75 mg PO HS #30 cap.er.24h 07/20/18 07/28/18 Rx Dicyclomine [Bentyl] 20 mg PO BID 07/28/18 07/28/18 History Famotidine [Pepcid] 20 mg PO QAM 07/28/18 07/28/18 History HYDROmorphone [Dilaudid] 4 mg PO Q6H PRN 07/28/18 07/28/18 History Lubiprostone [Amitiza] 24 mcg PO BID 07/28/18 07/28/18 History Mirtazapine [Remeron] 15 mg PO HS 07/28/18 07/28/18 History Allergies Allergy/AdvReac Type Severity Reaction Status Date / Time morphine Allergy Itching Verified 07/28/18 18:47 Physical Exam Vitals: Vital Signs Temp Pulse Pulse Resp BP Pulse Ox 07/30/18 11:33 82 07/30/18 11:22 84 07/30/18 07:46 80 07/30/18 07:38 78 07/30/18 04:00 98.9 F 86 17 108/56 95 07/30/18 00:00 99.0 F 85 17 105/55 94 L 07/29/18 20:08 80 07/29/18 20:00 99.6 F 89 17 114/57 92 L 07/29/18 19:55 84 07/29/18 16:50 80 07/29/18 16:34 82 95 07/29/18 16:00 98.1 F 83 16 121/63 98 07/29/18 15:00 97.8 F 49 L 16 110/78 100 Intake and Output 07/29/18 07/30/18 07/30/18 22:59 06:59 14:59 Intake Total 240 930 240 Balance 240 930 240 Intake: Intake, IV Titration 450 Amount Cefepime 2 gm In Sodium 200 Chloride 0.9% 100 ml @ 200 mls/hr IVPB Q8HR [facility] Rx#:[id number] Vancomycin 1,500 mg In 250 Sodium Chloride 0.9% 250 ml @ 125 mls/hr IVPB Q8H [facility] Rx#:[id number] Oral 240 480 240 Other: Voiding Method Toilet Toilet # Voids 4 1 Weight 81.2 kg Results 07/30/18 06:24 07/30/18 06:24 Cardiac Enzymes 07/29/18 07/29/18 07/30/18 Range/Units 14:11 14:11 06:24 AST 11 L (17-59) U/L CK-MB (CK-2) 0.6 (0.0-2.4) ng/mL Troponin I <0.012 (0.000-0.034) ng/mL Coagulation 07/30/18 Range/Units 02:25 PT 10.9 (9.0-12.0) sec CBC 07/30/18 Range/Units 06:24 WBC 2.0 L (3.8-10.6) k/uL RBC 2.53 L (4.30-5.90) m/uL Hgb 8.3 L (13.0-17.5) gm/dL Hct 25.0 L (39.0-53.0) % Plt Count 300 (150-450) k/uL Comprehensive Metabolic Panel 07/30/18 Range/Units 06:24 Sodium 138 (137-145) mmol/L Potassium 4.2 (3.5-5.1) mmol/L Chloride 108 H (98-107) mmol/L Carbon Dioxide 24 (22-30) mmol/L BUN 13 (9-20) mg/dL Creatinine 0.91 (0.66-1.25) mg/dL Glucose 96 (74-99) mg/dL Calcium 7.6 L (8.4-10.2) mg/dL AST 11 L (17-59) U/L ALT 32 (21-72) U/L Alkaline Phosphatase 105 (38-126) U/L Total Protein 4.8 L (6.3-8.2) g/dL Albumin 2.7 L (3.5-5.0) g/dL Current Medications Generic Name Dose Route Start Last Admin Trade Name Freq PRN Reason Stop Dose Admin Acetaminophen 500 mg 07/29/18 11:23 07/29/18 23:14 Tylenol Tab PO 500 mg Q6HR PRN Administration Fever and/ or Pain Acyclovir 400 mg 07/29/18 21:00 07/30/18 09:47 Zovirax PO 400 mg BID [facility] Administration Albuterol/Ipratropium 3 ml 07/28/18 20:00 07/30/18 11:21 Duoneb 0.5 Mg-3 Mg/3 Ml Soln INHALATION 3 ml RT-Q4H [facility] Administration Alprazolam 0.25 mg 07/28/18 22:46 Xanax PO BID PRN Anxiety Aspirin 81 mg 07/30/18 09:00 07/30/18 09:46 Aspirin PO 81 mg DAILY [facility] Administration Dicyclomine HCl 20 mg 07/28/18 23:00 07/30/18 09:46 Bentyl PO 20 mg BID [facility] Administration Famotidine 20 mg 07/30/18 09:00 07/30/18 09:46 Pepcid PO 20 mg QAM [facility] Administration Fentanyl 1 patch 07/30/18 06:00 07/30/18 06:28 Duragesic 100mcg/Hr Patch TRANSDERM 1 patch Q48H [facility] Administration Furosemide 20 mg 07/28/18 21:00 07/30/18 09:46 Lasix IV 20 mg Q12HR [facility] Administration Heparin Sodium (Porcine) 5,000 unit 07/29/18 21:00 07/30/18 09:46 Heparin SQ 5,000 unit Q12HR [facility] Administration Hydromorphone HCl 0.5 mg 07/29/18 13:02 07/30/18 09:44 Dilaudid IVP 0.5 mg Q3HR PRN Administration Severe Pain Cefepime HCl 2 gm/ Sodium 100 mls @ 200 mls/hr 07/29/18 10:15 07/30/18 10:01 Chloride IVPB 200 mls/hr Q8HR [facility] Administration Vancomycin HCl 1,500 mg/ 250 mls @ 125 mls/hr 07/29/18 12:00 07/30/18 03:34 Sodium Chloride IVPB 125 mls/hr Q8H [facility] Administration Ketorolac Tromethamine 15 mg 07/29/18 11:24 07/30/18 10:17 Toradol IVP 08/02/18 11:24 15 mg Q6HR PRN Administration Breakthrough Pain Lactulose 20 gm 07/29/18 21:00 07/30/18 09:45 Cephulac PO 20 gm BID [facility] Administration Loratadine 10 mg 07/29/18 21:00 07/29/18 20:09 Claritin PO 10 mg HS [facility] Administration Mirtazapine 15 mg 07/28/18 23:00 07/29/18 22:14 Remeron PO 15 mg HS [facility] Administration Non-Formulary Medication 10 mg 07/29/18 11:22 Chlorpromazine PO TID PRN [facility] Non-Formulary Medication 24 mcg 07/29/18 21:00 07/30/18 09:48 Lubiprostone [Amitiza] PO 24 mcg BID [facility] Administration Tizanidine HCl 2 mg 07/29/18 21:00 07/29/18 20:57 Zanaflex PO 2 mg HS [facility] Administration Trimethoprim/Sulfamethoxazole 1 each 07/29/18 09:00 07/29/18 12:19 Bactrim Ds PO 1 each MOWEFR [facility] Administration Venlafaxine HCl 75 mg 07/29/18 21:00 07/29/18 20:57 Effexor Xr PO 75 mg HS [facility] Administration Intake and Output 04/08/19 04/09/19 04/09/19 22:59 06:59 14:59 Intake Total 240 930 240 Balance 240 930 240 Intake: Intake, IV Titration 450 Amount Cefepime 2 gm In Sodium 200 Chloride 0.9% 100 ml @ 200 mls/hr IVPB Q8HR [facility] Rx#:[id number] Vancomycin 1,500 mg In 250 Sodium Chloride 0.9% 250 ml @ 125 mls/hr IVPB Q8H [facility] Rx#:[id number] Oral 240 480 240 Other: Voiding Method Toilet Toilet # Voids 4 1 Weight 81.2 kg Patient Weight 07/31/18 06:59 Weight 81.2 kg 07/30/18 06:24 07/30/18 06:24
[2018-07-30 12:40] LABS: Anion Gap 6 mmol/L; Blood Urea Nitrogen 13 mg/dL (9-20); Calcium 7.9 mg/dL (8.4-10.2); Carbon Dioxide 25 mmol/L (22-30); Chloride 107 mmol/L (98-107); Glucose 93 mg/dL (74-99); LDH 356 U/L (313-618); Phosphorus 2.5 mg/dL (2.5-4.5); Potassium 3.9 mmol/L (3.5-5.1); Sodium 138 mmol/L (137-145); Uric Acid 4.6 mg/dL (3.5-8.5)
[2018-07-30] MEDS ORDERED: IMMUNE GLOBULIN (GAMMAGARD) 1 GM/10 ML VIAL IV ONE (13:58)
--- NOTE | 2018-07-30 14:18 | P.PN ---
Subjective Progress Note Date: 07/30/18 Principal diagnosis: Multiple Myeloma Frustrated and still abdominal distention, eating and sleeping Objective - Vital Signs Vital signs: Vital Signs Temp 98.9 F 07/30/18 04:00 Pulse 82 07/30/18 11:33 Resp 17 07/30/18 04:00 BP 108/56 07/30/18 04:00 Pulse Ox 95 07/30/18 04:00 Intake & Output 07/29/18 07/30/18 07/30/18 18:59 06:59 18:59 Intake Total 240 930 600 Balance 240 930 600 Weight 81.647 kg 81.2 kg Intake: Intake, IV Titration 450 Amount Cefepime 2 gm In Sodium 200 Chloride 0.9% 100 ml @ 200 mls/hr IVPB Q8HR [facility] Rx#:[id number] Vancomycin 1,500 mg In 250 Sodium Chloride 0.9% 250 ml @ 125 mls/hr IVPB Q8H [facility] Rx#:[id number] Oral 240 480 600 Other: Voiding Method Toilet # Voids 4 1 # Bowel Movements 0 - Exam Gen: ALert and Oriented, NAD Head: NCNT Mucus Memb: Mild thrush Lungs: Diminished Bilateral Bases Heart: Reg Reg Abdomen: Distended and Firm, Pos BS Ext: Gen Edema, no rashes Neuro: No sensory or motor deficits Psych: Calm although Expresses anxiety - Labs CBC & Chem 7: 07/30/18 06:24 07/30/18 11:24 Labs: Abnormal Lab Results - Last 24 Hours (Table) 07/29/18 07/29/18 07/29/18 Range/Units 14:11 19:12 19:12 WBC (3.8-10.6) k/uL RBC (4.30-5.90) m/uL Hgb (13.0-17.5) gm/dL Hct (39.0-53.0) % Lymphocytes # (1.0-4.8) k/uL ESR 110 H (0-15) mm/hr Chloride (98-107) mmol/L Calcium (8.4-10.2) mg/dL AST (17-59) U/L Total Creatine Kinase 46 L (55-170) U/L C-Reactive Protein (<10.0) mg/L Total Protein (6.3-8.2) g/dL Total Protein (PEP) 4.6 L (6.2-8.2) g/dL Albumin (3.5-5.0) g/dL Albumin (PEP) 2.54 L (3.80-4.90) g/dL Adphl-5-Kcnyffqpt 0.43 H (0.10-0.40) g/dL Beta Globulins 0.52 L (0.60-1.30) g/dL Gamma Globulins 0.31 L (0.70-1.50) g/dL Ur Specific [place] (1.001-1.035) Urine Protein (Negative) Free [place] LC, Quant 86.50 H (0.33-1.94) mg/dL 07/29/18 07/29/18 07/30/18 Range/Units 19:12 Unknown 06:24 WBC 2.0 L (3.8-10.6) k/uL RBC 2.53 L (4.30-5.90) m/uL Hgb 8.3 L (13.0-17.5) gm/dL Hct 25.0 L (39.0-53.0) % Lymphocytes # 0.3 L (1.0-4.8) k/uL ESR (0-15) mm/hr Chloride (98-107) mmol/L Calcium (8.4-10.2) mg/dL AST (17-59) U/L Total Creatine Kinase (55-170) U/L C-Reactive Protein 59.4 H (<10.0) mg/L Total Protein (6.3-8.2) g/dL Total Protein (PEP) (6.2-8.2) g/dL Albumin (3.5-5.0) g/dL Albumin (PEP) (3.80-4.90) g/dL Dsmmy-9-Csycouoxs (0.10-0.40) g/dL Beta Globulins (0.60-1.30) g/dL Gamma Globulins (0.70-1.50) g/dL Ur Specific [place] >1.050 H (1.001-1.035) Urine Protein Trace H (Negative) Free [place] LC, Quant (0.33-1.94) mg/dL 07/30/18 07/30/18 Range/Units 06:24 11:24 WBC (3.8-10.6) k/uL RBC (4.30-5.90) m/uL Hgb (13.0-17.5) gm/dL Hct (39.0-53.0) % Lymphocytes # (1.0-4.8) k/uL ESR (0-15) mm/hr Chloride 108 H (98-107) mmol/L Calcium 7.6 L 7.9 L (8.4-10.2) mg/dL AST 11 L (17-59) U/L Total Creatine Kinase (55-170) U/L C-Reactive Protein (<10.0) mg/L Total Protein 4.8 L (6.3-8.2) g/dL Total Protein (PEP) (6.2-8.2) g/dL Albumin 2.7 L (3.5-5.0) g/dL Albumin (PEP) (3.80-4.90) g/dL Mavcq-9-Spkutcwtl (0.10-0.40) g/dL Beta Globulins (0.60-1.30) g/dL Gamma Globulins (0.70-1.50) g/dL Ur Specific [place] (1.001-1.035) Urine Protein (Negative) Free [place] LC, Quant (0.33-1.94) mg/dL Microbiology - Last 24 Hours (Table) 07/29/18 Unknown Urine Culture - Preliminary Urine,Clean Catch 07/28/18 17:07 Blood Culture - Preliminary Blood No Growth after 24 hours Assessment and Plan Plan: Assessment and Recommendations: Multiple Myeloma: - On Revlimid, Dexamethasone, and Velcade - Status Post 3 of 4 Velcade, Last held secondary to hospitalization - Ok to continue Rev and Dex while inpatient - Prophylaxic Acyclovir and Bactrim, as well as ASA per guidelines for RVD treatment - Restage as concern with clinical presentation for nephrotic syndrome, progressive disease or initial response of first cycle of chemotherapy Constipation: Induced by narcotics and lack of movement - AMitiza was started as outpatient to continue, no significant improvement - COntinue bowel regimen while inpatient and will send for authorization for next line therapy if still not improvement. - No obstruction or ileus noted on exams - CT or Xrays Myopathy and sedetary: - Secondary to pain with movement - Continue to encourage to get up and out of bed and increase movement - VTE Prophylaxis is recommended Fevers: Recurrent - Pann cultures ordered and pending - ? COmponent of pneumonia - Tumor or fevers related to myeloma - Afebrile since admission Intractable Pain Secondary to Multiple Myeloma Neoplastic Process: - Worse with Movement - Fentanyl Patch to continue and breakthrough medication - Evaluation for pain block is resonable, will ask PMR to assess Normocytic Anemia: - Secondary to chemo and malignancy - Monitor CBC Hypocalcemia: - Secondary Biphosphonate recently received on 07.12.18 - This is expected, will add Tums TID for Calcium Supp Pneumonia: - Unclear if pneumonia versus other - Infectious disease is follwoing - CT Chest: Extravascular Fluid shifts again noted, no Evidence of Pulm EMbolism Severe Protein Calorie Malnutrition - Dietary consult ordered Anxiety/Depression - He is agitated today and restless - Effexor at HS to continue - Remeron for appetite and sleep (been suffering insomnia and since starting appetite and sleep improved, to continue) Abdominal Distention: - Flat abdominal Xay no Ileus or Obstruction - CT abdomen and pelvis have been reviewed Plan: -Gammagaurd today - Hold TPN and increase Protein intake per design engineering specialist - GI to evaluate - I would obtain a stool studies when he starts moving bowels - I have asked our office to work on auth for [employer] - PLan pain block after discharge Consuelo GORDONP
[2018-07-30] MEDS ORDERED: IMMUNE GLOBULIN (GAMMAGARD) 30 GM in EMPTY BAG 1 BAG IV ONE (15:00)
[2018-07-30 15:09] LABS: Amylase <30 U/L (30-110); Lipase 26 U/L (23-300)
[2018-07-30 15:48] LABS: Immunoglobulin A 32.7 mg/dL (60.0-350.0); Immunoglobulin M <16.9 mg/dL (40.0-280.0)
[2018-07-30 21:31] LABS: Total Volume 24 Hour,Urine 1825 mls (800-1800)
[2018-07-30] MEDS: PANTOPRAZOLE 40 MG/10 ML VIAL IVP SCH (21:35)
[2018-07-30] MEDS: MIRTAZAPINE 15 MG TAB PO SCH (21:36)
[2018-07-30] MEDS: LORATADINE 10 MG TAB PO SCH (21:36)
[2018-07-30] MEDS: VENLAFAXINE HCL ER 75 MG CAP PO SCH (21:38)
[2018-07-30 21:42] LABS: Total Protein 24 Hour,Urine 274 mg/24hr (42.0-225.0)
[2018-07-30] MEDS: ACETAMINOPHEN TAB 500 MG TAB PO PRN (22:22)
[2018-07-31] MEDS: IPRATROPIUM-ALBUTEROL 3 ML NEB INHALATION SCH ×7 (00:04→23:28)
--- NOTE | 2018-07-31 00:29 | PN ---
PROGRESS NOTE DATE OF SERVICE: 07/30/2018. HISTORY: This 47-year-old gentleman admitted with shortness of breath, cough and chest pain is being closely monitored. Patient is thought to have bibasilar pneumonia. The CTA is negative for pulmonary embolism. The patient was seen by multiple consultants including Infectious Disease as well as Hematology/Oncology. The patient is on Pneumocystis prophylaxis also. There is no chest pain or palpitations at this time. A 2D echo was done yesterday which was reviewed by me, showed EF 60% to 65% and no pericardial effusion. EXAM: Alert and oriented x3. Pulse is 94, blood pressure 116/60, respiration 18, temperature 98.7, pulse ox normal. HEENT: Conjunctivae normal. NECK: No JVD. CARDIOVASCULAR: S1 and S2 muffled. LUNGS: Breath sounds diminished at the bases. Few scattered rhonchi and crackles. ABDOMEN: Soft, nontender. EXTREMITIES: Legs no edema, no swelling. NERVOUS SYSTEM: No focal deficits. LABS: WBC 2, hemoglobin is 8.3. Lymphocytes 0.3. 1.3. Total protein is 4.8, albumin is 2.7. Amylase and lipase normal. Vancomycin level noted. ASSESSMENT: 1. Bibasilar pneumonia possibly with failure of outpatient treatment, possibly hospital acquired pneumonia versus gram-negative pneumonia. 2. Chest pain, possibly pleurisy. 3. Increased D-dimer without any evidence of pulmonary embolism. 4. Bicytopenia with leukopenia and anemia. 5. Hypoalbuminemia. 7. History of hypertension. 8. History of depression. RECOMMENDATIONS: Recommend to continue current medications and symptomatic treatment. Continue with the antibiotics. Multiple operational risk consultant notes appreciated. Otherwise, cultures are negative. Guarded prognosis because of multiple complex medical issues. Further recommendations to follow. MMODL / IJN: [id number] / MTDD
[2018-07-31] MEDS: VANCOMYCIN 1,500 MG in SODIUM CHLORIDE 0.9% 250 ML IVPB SCH ×3 (03:42→20:40)
[2018-07-31] MEDS: HYDROmorphone 0.5 MG/0.5 ML SYRINGE IVP PRN ×3 (05:09→21:37)
[2018-07-31] MEDS: KETOROLAC 30 MG/ML 1 ML VIAL IVP PRN (05:10)
[2018-07-31 06:58] LABS: Basophils % (A) 0 %; Eosinophils # (A) 0.1 k/uL (0-0.7); Eosinophils % (A) 7 %; HGB 8.8 gm/dL (13.0-17.5); Lymphocytes # (A) 0.2 k/uL (1.0-4.8); Lymphocytes % (A) 10 %; MCH 32.3 pg (25.0-35.0); MCHC 32.8 g/dL (31.0-37.0); MCV 98.5 fL (80.0-100.0); Mean Platelet Volume 7.2; Monocytes # (A) 0.3 k/uL (0-1.0); Monocytes % (A) 13 %; Neutrophils # (A) 1.3 k/uL (1.3-7.7); Neutrophils % (A) 67 %; Platelet Count 346 k/uL (150-450); RBC 2.74 m/uL (4.30-5.90); RDW 14.3 % (11.5-15.5)
[2018-07-31 07:18] LABS: Anion Gap 6 mmol/L; Blood Urea Nitrogen 12 mg/dL (9-20); Calcium 7.9 mg/dL (8.4-10.2); Carbon Dioxide 21 mmol/L (22-30); Chloride 110 mmol/L (98-107); Glucose 98 mg/dL (74-99); Potassium 4.1 mmol/L (3.5-5.1); Sodium 137 mmol/L (137-145)
[2018-07-31] MEDS: LACTULOSE 20 GM/30 ML CUP PO SCH ×2 (09:34→20:41)
[2018-07-31] MEDS: FAMOTIDINE 20 MG TAB PO SCH (09:34)
[2018-07-31] MEDS: DICYCLOMINE 20 MG TAB PO SCH (09:35)
[2018-07-31] MEDS: ASPIRIN 81 MG PO SCH (09:35)
[2018-07-31] MEDS: ACYCLOVIR 200 MG CAP PO SCH ×2 (09:36→21:37)
[2018-07-31] MEDS: DEXAMETHASONE 4 MG TAB PO SCH (09:36)
[2018-07-31] MEDS: PANTOPRAZOLE 40 MG/10 ML VIAL IVP SCH ×2 (09:37→20:41)
[2018-07-31] MEDS: FUROSEMIDE 10 MG/ML 2 ML VIAL IV SCH ×2 (09:37→18:19)
[2018-07-31] MEDS: CEFEPIME 2 GM in SODIUM CHLORIDE 0.9% 100 ML IVPB SCH ×2 (09:37→15:57)
[2018-07-31] MEDS: HEPARIN SODIUM,PORCINE 5,000 UNIT/ML 1 ML VIAL SQ SCH ×2 (09:37→20:41)
[2018-07-31] MEDS: NON-FORMULARY DRUG (Lubiprostone [Amitiza] 24 MCG) PO SCH ×2 (09:38→20:40)
[2018-07-31] MEDS: ACETAMINOPHEN TAB 500 MG TAB PO PRN (09:52)
[2018-07-31] MEDS: SULFAMETHOX-TMP 800-160MG 1 EACH TAB PO SCH (09:52)
[2018-07-31] MEDS ORDERED: DICYCLOMINE 20 MG TAB PO PRN (11:56)
--- NOTE | 2018-07-31 11:56 | P.CONS ---
History of Present Illness - Reason for Consult Consult date: 07/31/18 constipation abdominal bloatedness Requesting physician: Juan Monzon - Chief Complaint rib pain dyspnea - History of Present Illness 47 y/o male recently diagnosed with multiple myeloma as well as recent pneumonia admitted with dyspnea joint/rib pain. Since his multiple myeloma diagnosis he has been experiencing acute onset of constipation coinciding with his narcotic usage for pain. Prior to his multiple myeloma diagnosis he has no history of constipation or IBD/bowel disorders. No familial history of colon cancer. Colonoscopy in his mid-20's per request of his employer reported as normal. Patient and his describe over the past 2-4 weeks trialling multiple sherry cotics and nonnarcotics along with multiple dosage adjustments to help control his pain including Bentyl, Zanaflex, Morphine, Wiley, Percocet, Dilaudid, and Fentanyl patch. Presently he is receiving Fentanyl 100 mcg Q48HR as well as Zanaflex and Toradol with adequate pain control. His bowel movements are loose but only averaging 1 movement a week. Denies hematochezia or melena. Progressive abdominal bloatedness at times with intermittent discomfort but would not characterize his abdominal discomfort as pain. He was started on Lactulose, Senokot-S, Miralax without much improvement. Lactulose works but causes him to feel more bloated. Amitiza was also given without much improvement, however, with the frequent changes in his narcotics his bowel regimen was also simultaneously being adjusted and hasn't really maintained a consistent regimen of stool softeners and or laxatives for more than a weeks time. Multiple abdominal xrays since July 19 do not indicate bowel obstruction and or abnormal bowel dilation. CT A/P 07/25/18 moderate stool burden redundant sigmoid colon and abdominal flank anasarca type changes. WBC 2.0. HGB 8.8. Platelet 246. CRP 57. ESR 83-110. Serum protein 2.7-2.9. Review of Systems Constitutional: Positive fever, chills, denies sweats, weight gain, or loss. HEENT: Negative for migraines, blurred vision or loss, earaches, drainage, tinnitus, oral mucosal lesions, dysphagia, or odynophagia. Cardiac: Negative for chest pain, arrhythmias, or palpitation. Respiratory: Positive shortness of breath denies hemoptysis, cough, or sputum production. Gastrointestinal: See HPI for pertinent findings. Genitourinary: Negative for hematuria, urgency, frequency, polyuria, dysuria, or penile discharge. Musculoskeletal: Negative for muscle aches, swelling, arthritis, and arthralgias. Neurologic: Negative for stroke or TIA. Endocrine: Negative for thyroid problems. Skin: Anasarca. No rashes. Psychiatric: Negative history for depression and anxiety Past Medical History Past Medical History: Cancer, Hypertension Additional Past Medical History / Comment(s): Never taken hypertensive medication., Multiple Myeloma History of Any Multi-Drug Resistant Organisms: None Reported Past Surgical History: Appendectomy Past Anesthesia/Blood Transfusion Reactions: No Reported Reaction Past Psychological History: No Psychological Hx Reported, Depression Additional 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 No experience. No recent travel. No significant tobacco or alcohol use or recreational drug use. 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 No experience. No recent travel. No si gnificant tobacco or alcohol use or recreational drug use. 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 Past Drug Use History: None Reported - Past Family History Father Family Medical History: Hypertension Medications and Allergies Home Medications Medication Instructions Recorded Confirmed Type Loratadine [Claritin] 10 mg PO HS 06/16/18 07/28/18 History ALPRAZolam [Xanax] 0.25 mg PO BID PRN 07/18/18 07/28/18 History Acyclovir [Zovirax] 400 mg PO BID 07/18/18 07/28/18 History Aspirin [Adult Low Dose Aspirin EC] 81 mg PO DAILY 07/18/18 07/28/18 History Lactulose [Constulose] 20 gm PO BID 07/18/18 07/28/18 History Lenalidomide [Revlimid] 25 mg PO DIRECTED 07/18/18 07/28/18 History Sulfamethox-Tmp 800-160Mg [Bactrim 1 tab PO MOWEFR 07/18/18 07/28/18 History DS 800-160 mg] chlorproMAZINE [Thorazine] 10 mg PO TID PRN 07/18/18 07/28/18 History fentaNYL 100MCG/HR PATCH 1 patch TRANSDERM Q48H 07/18/18 07/28/18 History [Duragesic 100MCG/HR] tiZANidine [Zanaflex] 2 mg PO HS 07/18/18 07/28/18 History Venlafaxine HCl ER [Effexor XR] 75 mg PO HS #30 cap.er.24h 07/20/18 07/28/18 Rx Dicyclomine [Bentyl] 20 mg PO BID 07/28/18 07/28/18 History Famotidine [Pepcid] 20 mg PO QAM 07/28/18 07/28/18 History HYDROmorphone [Dilaudid] 4 mg PO Q6H PRN 07/28/18 07/28/18 History Lubiprostone [Amitiza] 24 mcg PO BID 07/28/18 07/28/18 History Mirtazapine [Remeron] 15 mg PO HS 07/28/18 07/28/18 History Allergies Allergy/AdvReac Type Severity Reaction Status Date / Time morphine Allergy Itching Verified 07/28/18 18:47 Physical Exam Vitals: Vital Signs Temp Pulse Pulse Resp BP Pulse Ox 07/31/18 08:00 98.6 F 88 16 131/62 96 07/31/18 07:35 72 07/31/18 07:26 68 07/31/18 04:00 98.6 F 89 18 128/60 96 07/31/18 03:35 20 07/31/18 00:00 100.1 F H 90 20 126/60 96 07/30/18 20:50 98.7 F 94 18 116/60 07/30/18 20:00 94 18 07/30/18 19:39 74 07/30/18 19:24 72 07/30/18 17:21 98.8 F 78 16 110/59 07/30/18 16:44 74 07/30/18 16:32 74 97 07/30/18 16:00 78 16 07/30/18 12:00 98.6 F 78 16 115/67 96 Intake and Output 07/30/18 07/31/18 07/31/18 22:59 06:59 14:59 Intake Total 260 450 240 Output Total 1 Balance 259 450 240 Intake: Oral 260 450 240 Output: Urine 1 Other: Voiding Method Toilet Toilet Toilet # Voids 2 # Bowel Movements 1 - Constitutional General appearance: average body habitus - EENT Eyes: normal appearance ENT: normal oropharynx Ears: bilateral: normal - Neck Neck: normal ROM - Respiratory Respiratory: bilateral: diminished (slightly in bases only) - Cardiovascular Rhythm: regular Heart sounds: normal: S1, S2 - Gastrointestinal bloated features of anasarca. No R/G. General gastrointestinal: decreased bowel sounds - Integumentary Integumentary: normal - Neurologic Neurologic: CNII-XII intact - Psychiatric Psychiatric: A&O x's 3 Results CBC & Chem 7: 07/31/18 05:58 07/31/18 05:58 Labs: Abnormal Lab Results - Last 24 Hours (Table) 07/29/18 07/29/18 07/29/18 Range/Units 19:12 19:12 21:06 WBC (3.8-10.6) k/uL RBC (4.30-5.90) m/uL Hgb (13.0-17.5) gm/dL Hct (39.0-53.0) % Lymphocytes # (1.0-4.8) k/uL ESR (0-15) mm/hr Chloride (98-107) mmol/L Carbon Dioxide (22-30) mmol/L Calcium (8.4-10.2) mg/dL C-Reactive Protein (<10.0) mg/L Amylase (30-110) U/L Ur 24 Hour Volume 1825 H (800-1800) mls U Tot Protein 24h, Calc 274 H (42.0-225.0) mg/24hr IgG 336.0 L (700.0-1600.0) mg/dL IgA 32.7 L (60.0-350.0) mg/dL IgM <16.9 L (40.0-280.0) mg/dL Free [place] LC, Quant 86.50 H (0.33-1.94) mg/dL 07/30/18 07/30/18 07/30/18 Range/Units 06:24 06:24 11:24 WBC (3.8-10.6) k/uL RBC (4.30-5.90) m/uL Hgb (13.0-17.5) gm/dL Hct (39.0-53.0) % Lymphocytes # (1.0-4.8) k/uL ESR 83 H (0-15) mm/hr Chloride (98-107) mmol/L Carbon Dioxide (22-30) mmol/L Calcium 7.9 L (8.4-10.2) mg/dL C-Reactive Protein 57.1 H (<10.0) mg/L Amylase (30-110) U/L Ur 24 Hour Volume (800-1800) mls U Tot Protein 24h, Calc (42.0-225.0) mg/24hr IgG (700.0-1600.0) mg/dL IgA (60.0-350.0) mg/dL IgM (40.0-280.0) mg/dL Free [place] LC, Quant (0.33-1.94) mg/dL 07/30/18 07/31/18 07/31/18 Range/Units 11:24 05:58 05:58 WBC 2.0 L (3.8-10.6) k/uL RBC 2.74 L (4.30-5.90) m/uL Hgb 8.8 L (13.0-17.5) gm/dL Hct 27.0 L (39.0-53.0) % Lymphocytes # 0.2 L (1.0-4.8) k/uL ESR (0-15) mm/hr Chloride 110 H (98-107) mmol/L Carbon Dioxide 21 L (22-30) mmol/L Calcium 7.9 L (8.4-10.2) mg/dL C-Reactive Protein (<10.0) mg/L Amylase <30 L (30-110) U/L Ur 24 Hour Volume (800-1800) mls U Tot Protein 24h, Calc (42.0-225.0) mg/24hr IgG (700.0-1600.0) mg/dL IgA (60.0-350.0) mg/dL IgM (40.0-280.0) mg/dL Free [place] LC, Quant (0.33-1.94) mg/dL Microbiology - Last 24 Hours (Table) 07/29/18 Unknown Urine Culture - Final Urine,Clean Catch 07/28/18 17:07 Blood Culture - Preliminary Blood No Growth after 48 hours Assessment and Plan (1) Constipation due to opioid therapy Narrative/Plan: 1) CT A/P 07/25/18 moderate stool burden redundant sigmoid and abdominal flank anasarca. Multiple abdominal xrays unremarkable for obstructive features. 2) Continue Lactulose 20 grams BID. Senokot-S 2 tabs BID. 3) Continue Amitiza 24 mg BID. Goal 3-4 BMs weekly observe for excessive diarrhea nausea and or features of bowel obstruction. 4) Ambulation encouraged. 5) Goal 3-4 or more BMs weekly. 6) Will obtain another set of abdominal xrays. 7) Continue stool softeners/laxatives and Amitiza as long as receiving narcotics. Reassess bowel medications in 7-10 days in most cases it takes consistency for full effect to take place. 8) RTO GI office 7-10 after DC for close follow up will adjust bowel regimen as indicated. Current Visit: Yes Status: Acute Code(s): K59.03 - DRUG INDUCED CONSTIPATION; T40.2X5A - ADVERSE EFFECT OF OTHER OPIOIDS, INITIAL ENCOUNTER SNOMED Code(s): 212863436844020 (2) Multiple myeloma Narrative/Plan: 1) Revlimid/Velcade/Dexamethasone 2) ABX prophylaxis Current Visit: Yes Status: Acute Code(s): C90.00 - MULTIPLE MYELOMA NOT HAVING ACHIEVED REMISSION SNOMED Code(s): 650997845 (3) Pain, neoplasm-related Narrative/Plan: 1) Presently receiving Fentanyl 100 mcg Q48HR, Toradol, Zanaflex and Dilaudid. 2) Consideration for pain management consultation. Current Visit: No Status: Acute Code(s): G89.3 - NEOPLASM RELATED PAIN (ACUTE) (CHRONIC) SNOMED Code(s): 79909704419881 (4) Anasarca Narrative/Plan: 1) Abdominal bloatedness component of anasarca constipation which is multifactorial due to protein loss from cancer as well as hypoalbuminemia; will check prealbumin. No radiographic evidence at this time to suggest bowel obstruction or Kamiah syndrome. 2) Dietary consult; Protein shakes 3x daily encouraged with meals. 3) Diuresis Current Visit: Yes Status: Acute Code(s): R60.1 - GENERALIZED EDEMA SNOMED Code(s): 007004113 (5) Hypoalbuminemia due to protein-calorie malnutrition Current Visit: Yes Status: Acute Code(s): E46 - UNSPECIFIED PROTEIN-CALORIE MALNUTRITION SNOMED Code(s): 292807456 (6) Leukopenia Current Visit: Yes Status: Acute Code(s): D72.819 - DECREASED WHITE BLOOD CELL COUNT, UNSPECIFIED SNOMED Code(s): 45997520 Plan: Thank you for this kind referral and the opportunity to participate in the care of your patient. This consultation was discussed with Dr. Finn. The impression and plan of care have been directed as dictated.
[2018-07-31] MEDS: SENNOSIDES-DOCUSATE SODIUM 1 EACH TAB PO SCH ×2 (12:38→20:41)
--- NOTE | 2018-07-31 13:19 | P.PN ---
Subjective Progress Note Date: 07/31/18 Principal diagnosis: Multiple Myeloma Frustrated and still abdominal distention, eating and sleeping Subjective fevers and chills today, T Max 100.2 Re-culture, ID is following He is eating well, walked today and sitting up in chair Objective - Vital Signs Vital signs: Vital Signs Temp 99.3 F 07/31/18 12:00 Pulse 86 07/31/18 12:00 Resp 16 07/31/18 12:00 BP 122/66 07/31/18 12:00 Pulse Ox 95 07/31/18 12:00 Intake & Output 07/30/18 07/31/18 07/31/18 18:59 06:59 18:59 Intake Total 860 450 240 Output Total 1 Balance 859 450 240 Weight 81.2 kg Intake: Oral 860 450 240 Output: Urine 1 Other: Voiding Method Toilet Toilet Toilet # Voids 1 2 # Bowel Movements 1 - Exam Gen: ALert and Oriented, NAD Head: NCNT Mucus Memb: Mild thrush Lungs: Diminished Bilateral Bases Heart: Reg Reg Abdomen: Distended and Firm, Pos BS Ext: Gen Edema, no rashes Neuro: No sensory or motor deficits Psych: Calm although Expresses anxiety - Labs CBC & Chem 7: 07/31/18 05:58 07/31/18 05:58 Labs: Abnormal Lab Results - Last 24 Hours (Table) 07/29/18 07/29/18 07/29/18 Range/Units 19:12 19:12 21:06 WBC (3.8-10.6) k/uL RBC (4.30-5.90) m/uL Hgb (13.0-17.5) gm/dL Hct (39.0-53.0) % Lymphocytes # (1.0-4.8) k/uL ESR (0-15) mm/hr Chloride (98-107) mmol/L Carbon Dioxide (22-30) mmol/L Calcium (8.4-10.2) mg/dL C-Reactive Protein (<10.0) mg/L Amylase (30-110) U/L Ur 24 Hour Volume 1825 H (800-1800) mls U Tot Protein 24h, Calc 274 H (42.0-225.0) mg/24hr IgG 336.0 L (700.0-1600.0) mg/dL IgA 32.7 L (60.0-350.0) mg/dL IgM <16.9 L (40.0-280.0) mg/dL Free [place] LC, Quant 86.50 H (0.33-1.94) mg/dL 07/30/18 07/30/18 07/30/18 Range/Units 06:24 06:24 11:24 WBC (3.8-10.6) k/uL RBC (4.30-5.90) m/uL Hgb (13.0-17.5) gm/dL Hct (39.0-53.0) % Lymphocytes # (1.0-4.8) k/uL ESR 83 H (0-15) mm/hr Chloride (98-107) mmol/L Carbon Dioxide (22-30) mmol/L Calcium (8.4-10.2) mg/dL C-Reactive Protein 57.1 H (<10.0) mg/L Amylase <30 L (30-110) U/L Ur 24 Hour Volume (800-1800) mls U Tot Protein 24h, Calc (42.0-225.0) mg/24hr IgG (700.0-1600.0) mg/dL IgA (60.0-350.0) mg/dL IgM (40.0-280.0) mg/dL Free [place] LC, Quant (0.33-1.94) mg/dL 07/31/18 07/31/18 Range/Units 05:58 05:58 WBC 2.0 L (3.8-10.6) k/uL RBC 2.74 L (4.30-5.90) m/uL Hgb 8.8 L (13.0-17.5) gm/dL Hct 27.0 L (39.0-53.0) % Lymphocytes # 0.2 L (1.0-4.8) k/uL ESR (0-15) mm/hr Chloride 110 H (98-107) mmol/L Carbon Dioxide 21 L (22-30) mmol/L Calcium 7.9 L (8.4-10.2) mg/dL C-Reactive Protein (<10.0) mg/L Amylase (30-110) U/L Ur 24 Hour Volume (800-1800) mls U Tot Protein 24h, Calc (42.0-225.0) mg/24hr IgG (700.0-1600.0) mg/dL IgA (60.0-350.0) mg/dL IgM (40.0-280.0) mg/dL Free [place] LC, Quant (0.33-1.94) mg/dL Microbiology - Last 24 Hours (Table) 07/29/18 Unknown Urine Culture - Final Urine,Clean Catch 07/28/18 17:07 Blood Culture - Preliminary Blood No Growth after 48 hours Assessment and Plan Plan: Assessment and Recommendations: Multiple Myeloma: - On Revlimid, Dexamethasone, and Velcade - Status Post 3 of 4 Velcade, Last held secondary to hospitalization - Ok to continue Rev and Dex while inpatient - Prophylaxic Acyclovir and Bactrim, as well as ASA per guidelines for RVD coni tment - Restage as concern with clinical presentation for nephrotic syndrome, progressive disease or initial response of first cycle of chemotherapy Constipation: Induced by narcotics and lack of movement - AMitiza was started as outpatient to continue, no significant improvement - COntinue bowel regimen while inpatient and will send for authorization for next line therapy if still not improvement. - No obstruction or ileus noted on exams - CT or Xrays Myopathy and sedetary: - Secondary to pain with movement - Continue to encourage to get up and out of bed and increase movement - VTE Prophylaxis is recommended Fevers: Recurrent - Pann cultures ordered and pending - ? COmponent of pneumonia - Tumor or fevers related to myeloma - Afebrile since admission Intractable Pain Secondary to Multiple Myeloma Neoplastic Process: - Worse with Movement - Fentanyl Patch to continue and breakthrough medication - Evaluation for pain block is resonable, will ask PMR to assess Normocytic Anemia: - Secondary to chemo and malignancy - Monitor CBC Hypocalcemia: - Secondary Biphosphonate recently received on 07.12.18 - This is expected, will add Tums TID for Calcium Supp Pneumonia: - Unclear if pneumonia versus other - Infectious disease is follwoing - CT Chest: Extravascular Fluid shifts again noted, no Evidence of Pulm EMbolism Severe Protein Calorie Malnutrition - Dietary consult ordered Anxiety/Depression - He is agitated today and restless - Effexor at HS to continue - Remeron for appetite and sleep (been suffering insomnia and since starting appetite and sleep improved, to continue) Abdominal Distention: - Flat abdominal Xay no Ileus or Obstruction - CT abdomen and pelvis have been reviewed Plan: - GI to manage Bowel regimen discussed with team in detail today - PLan for Possible pain block as outpatient to decrease narcotic use - Re-panculture related to increased symptoms of fever - ?tumor fever - Await restaging results - DISPO - Hopefully 24-48 hours if cultures negative and symptoms controlled - Start Day one of cycle two with revlimid and dexamethasone, will resume felecia nanette as outpatient Consuelo FLORES
--- NOTE | 2018-07-31 16:21 | XR ---
EXAMINATION TYPE: XR abdomen acute w cxr DATE OF EXAM: 07/31/2018 COMPARISON: Prior multiple view abdomen and chest x-ray 07/29/2017 HISTORY: Distention and shortness of breath TECHNIQUE: Supine, upright, and chest x-ray views of the abdomen are obtained on 4 images. FINDINGS: There is some perihilar vascular indistinctness. Some minimal blunting the costophrenic an gles. Interstitium may be improved. There are cardiac leads. There is no evidence for pneumoperitoneum. The bowel gas pattern is unremarkable as there is air throughout nondilated small and large bowel. Air-fluid levels without distention are noted. No mass effects are seen. Stable calcification in the left hemipelvis. Contrast has cleared. IMPRESSION: Nonobstructive bowel gas pattern.
[2018-07-31] MEDS: REVLIMID 25 MG PO SCH (18:35)
--- NOTE | 2018-07-31 20:06 | PN ---
PROGRESS NOTE DATE OF SERVICE: 07/31/2018 This 47-year-old gentleman who was admitted with bibasilar pneumonia with failure of outpatient treatment also had some chest pain, so the patient is being closely monitored at this time. An acute abdominal series was done today. Gastroenterology has been consulted. Acute abdominal series shows a nonobstructive bowel pattern. Patient is being closely monitored at this time. are also following the patient closely. The patient also had constipation related to opioid therapy. On exam, patient is alert and oriented x3. Pulse is 93, blood pressure 118/63, respiration 20, temperature 98.5, pulse ox 94% on room air. HEENT: Conjunctivae pale. NECK: No jugular venous distention. CARDIOVASCULAR SYSTEM: S1, S2 muffled. RESPIRATORY SYSTEM: Breath sounds diminished at the bases. A few scattered rhonchi and crackles. ABDOMEN: Soft, non-tender. NERVOUS SYSTEM: No focal deficit. LABS: WBC 2. Hemoglobin is 8.8. Sodium 137, potassium 4.1. ASSESSMENT: 1. Bibasilar pneumonia possibly with failure of outpatient treatment, possibly hospital-acquired pneumonia versus gram-negative pneumonia. 2. Chest pain, possible pleurisy. 3. Increased D-dimer without any evidence of pulmonary embolus. 4. Bicytopenia and leukopenia and anemia. 5. Hypoalbuminemia. 6. History of hypertension. 7. History of depression. RECOMMENDATIONS AND DISCUSSION: I recommend to continue current medications, continue with the monitoring, symptomatic treatment. Otherwise at this time I recommend broad-spectrum IV antibiotics. Closely follow with Infectious Disease as well as Gastroenterology. Further recommendations to follow. MMODL / IJN: [id number] / ARON
[2018-07-31] MEDS: MIRTAZAPINE 15 MG TAB PO SCH (20:41)
[2018-07-31] MEDS: LORATADINE 10 MG TAB PO SCH (20:41)
[2018-07-31] MEDS: VENLAFAXINE HCL ER 75 MG CAP PO SCH (21:37)
[2018-08-01] MEDS: CEFEPIME 2 GM in SODIUM CHLORIDE 0.9% 100 ML IVPB SCH ×3 (00:58→15:37)
[2018-08-01] MEDS: IPRATROPIUM-ALBUTEROL 3 ML NEB INHALATION SCH ×5 (02:23→19:49)
[2018-08-01] MEDS: VANCOMYCIN 1,500 MG in SODIUM CHLORIDE 0.9% 250 ML IVPB SCH ×3 (04:08→20:43)
[2018-08-01] MEDS: HYDROmorphone 0.5 MG/0.5 ML SYRINGE IVP PRN ×3 (06:29→22:37)
[2018-08-01] MEDS: NON-FORMULARY DRUG (Lubiprostone [Amitiza] 24 MCG) PO SCH ×2 (08:38→20:45)
[2018-08-01] MEDS: FUROSEMIDE 10 MG/ML 2 ML VIAL IV SCH ×2 (08:38→15:38)
[2018-08-01] MEDS: PANTOPRAZOLE 40 MG/10 ML VIAL IVP SCH (08:38)
[2018-08-01] MEDS: REVLIMID 25 MG PO SCH (08:38)
[2018-08-01 09:16] LABS: Basophils % (A) 0 %; Eosinophils % (A) 1 %; HCT 27.3 % (39.0-53.0); Lymphocytes # (A) 0.3 k/uL (1.0-4.8); Lymphocytes % (A) 8 %; MCH 32.8 pg (25.0-35.0); MCHC 32.9 g/dL (31.0-37.0); MCV 99.5 fL (80.0-100.0); Macrocytosis Slight; Mean Platelet Volume 7.6; Monocytes # (A) 0.3 k/uL (0-1.0); Monocytes % (A) 10 %; Neutrophils # (A) 2.7 k/uL (1.3-7.7); Neutrophils % (A) 80 %; Platelet Count 427 k/uL (150-450); RBC 2.74 m/uL (4.30-5.90); RDW 14.7 % (11.5-15.5); WBC 3.4 k/uL (3.8-10.6)
[2018-08-01 09:50] LABS: Blood Urea Nitrogen 15 mg/dL (9-20); Calcium 8.4 mg/dL (8.4-10.2); Chloride 108 mmol/L (98-107); Glucose 109 mg/dL (74-99); Potassium 4.1 mmol/L (3.5-5.1); Sodium 138 mmol/L (137-145)
[2018-08-01] MEDS: ACYCLOVIR 200 MG CAP PO SCH ×2 (10:16→20:44)
[2018-08-01] MEDS: LACTULOSE 20 GM/30 ML CUP PO SCH ×2 (10:16→20:44)
[2018-08-01] MEDS: DEXAMETHASONE 4 MG TAB PO SCH (10:17)
[2018-08-01] MEDS: HEPARIN SODIUM,PORCINE 5,000 UNIT/ML 1 ML VIAL SQ SCH ×2 (10:17→20:44)
[2018-08-01] MEDS: ASPIRIN 81 MG PO SCH (10:18)
[2018-08-01] MEDS: SENNOSIDES-DOCUSATE SODIUM 1 EACH TAB PO SCH ×2 (10:18→20:44)
[2018-08-01 10:54] LABS: Anion Gap 11 mmol/L; Carbon Dioxide 19 mmol/L (22-30)
--- NOTE | 2018-08-01 11:36 | P.PN ---
Subjective Progress Note Date: 08/01/18 Principal diagnosis: Constipation and abdominal distention bloatedness Feels well. Passing flatus no bowel movements. Tolerating diet. Pre-albumin 11. Objective - Vital Signs Vital signs: Vital Signs Temp 98.2 F 08/01/18 05:13 Pulse 94 08/01/18 05:13 Resp 16 08/01/18 05:13 BP 116/70 08/01/18 05:13 Pulse Ox 94 L 08/01/18 05:13 Intake & Output 07/31/18 08/01/18 08/01/18 18:59 06:59 18:59 Intake Total 1404 350 Balance 1404 350 Intake: Intake, IV Titration 350 Amount Cefepime 2 gm In Sodium 100 Chloride 0.9% 100 ml @ 200 mls/hr IVPB Q8HR [facility] Rx#:[id number] Vancomycin 1,500 mg In 250 Sodium Chloride 0.9% 250 ml @ 125 mls/hr IVPB Q8H [facility] Rx#:[id number] Oral 1404 Other: Voiding Method Toilet Toilet # Voids 1 - Exam General appearance: The patient is alert, oriented, in no acute distress. HET: Head is normocephalic and atraumatic. Pupils are equal and reactive. Oropharynx is clear without lesions. Neck: Supple without lymphadenopathy. Trachea midline. Heart: S1 S2. Regular rate and rhythm. Lungs: No crackles or wheezes are heard. Abdomen: Soft, nontender mildly bloated anasarca changes to the abdomen and flank with bowel sounds. No peritoneal signs. No palpable organomegaly or masses. Extremities: Normal skin color and turgor. No cyanosis, rash, ulceration, clubbing, or edema. Radial and pedal pulses are 2/4 bilaterally. Neurological: No focal deficits. Strength and sensation are grossly intact. - Labs CBC & Chem 7: 08/01/18 08:29 08/01/18 08:29 Labs: Abnormal Lab Results - Last 24 Hours (Table) 07/31/18 08/01/18 08/01/18 Range/Units 05:58 08:29 08:29 WBC 3.4 L (3.8-10.6) k/uL RBC 2.74 L (4.30-5.90) m/uL Hgb 9.0 L (13.0-17.5) gm/dL Hct 27.3 L (39.0-53.0) % Lymphocytes # 0.3 L (1.0-4.8) k/uL Chloride 108 H (98-107) mmol/L Carbon Dioxide 19 L (22-30) mmol/L Glucose 109 H (74-99) mg/dL Prealbumin 11.0 L (18.0-42.0) mg/dL Microbiology - Last 24 Hours (Table) 07/28/18 17:07 Blood Culture - Preliminary Blood No Growth after 72 hours Assessment and Plan (1) Constipation due to opioid therapy Narrative/Plan: 1) CT A/P 07/25/18 moderate stool burden redundant sigmoid and abdominal flank anasarca. Multiple abdominal xrays unremarkable for obstructive features. 2) Continue Lactulose 20 grams BID. Senokot-S 2 tabs BID. 3) Continue Amitiza 24 mg BID. Goal 3-4 BMs weekly observe for excessive diarrhea nausea and or features of bowel obstruction. 4) Ambulation encouraged. 5) Goal 3-4 or more BMs weekly. 6) Will obtain another set of abdominal xrays. 7) Continue stool softeners/laxatives and Amitiza as long as receiving narcotics. Reassess bowel medications in 7-10 days in most cases it takes consistency for full effect to take place. 8) RTO GI office 7-10 after DC for close follow up will adjust bowel regimen as indicated. Current Visit: Yes Status: Acute Code(s): K59.03 - DRUG INDUCED CONSTIPATION; T40.2X5A - ADVERSE EFFECT OF OTHER OPIOIDS, INITIAL ENCOUNTER SNOMED Code(s): 473180731976673 (2) Multiple myeloma Narrative/Plan: 1) Revlimid/Velcade/Dexamethasone 2) ABX prophylaxis Current Visit: Yes Status: Acute Code(s): C90.00 - MULTIPLE MYELOMA NOT HAVING ACHIEVED REMISSION SNOMED Code(s): 820392972 (3) Pain, neoplasm-related Narrative/Plan: 1) Presently receiving Fentanyl 100 mcg Q48HR, Toradol, Zanaflex and Dilaudid. 2) Consideration for pain management consultation. Current Visit: No Status: Acute Code(s): G89.3 - NEOPLASM RELATED PAIN (ACUTE) (CHRONIC) SNOMED Code(s): 17186559231541 (4) Anasarca Narrative/Plan: 1) Abdominal bloatedness component of anasarca constipation which is multifactorial due to protein loss from cancer as well as hypoalbuminemia; will check prealbumin. No radiographic evidence at this time to suggest bowel obstruction or [place] syndrome. 2) Dietary consult; Protein shakes 3x daily encouraged with meals. 3) Diuresis Current Visit: Yes Status: Acute Code(s): R60.1 - GENERALIZED EDEMA SNOMED Code(s): 662576919 (5) Hypoalbuminemia due to protein-calorie malnutrition Narrative/Plan: Prealbumin 11 Current Visit: Yes Status: Acute Code(s): E46 - UNSPECIFIED PROTEIN-CALORIE MALNUTRITION SNOMED Code(s): 255488761 (6) Leukopenia Current Visit: Yes Status: Acute Code(s): D72.819 - DECREASED WHITE BLOOD CELL COUNT, UNSPECIFIED SNOMED Code(s): 00428939 Plan: Agreeable for discharge. Recommend lactulose 20 g twice a day. Senokot-S 2 t abs twice a day. Continue with Amitiza 24 mcg BID. Hold dose of lactulose, Senokot S for excessive diarrhea. Request dietitian to speak with patient prior to discharge in regards to his dietary needs. Return to office in 1 week for reevaluation. Assessment and plan a care discussed with Dr. Finn
--- NOTE | 2018-08-01 12:33 | P.PN ---
Subjective Progress Note Date: 08/01/18 Principal diagnosis: Multiple Myeloma Up in hallway today.No bm yet today. Movantik is approved if GI moves forward Objective - Vital Signs Vital signs: Vital Signs Temp 98.2 F 08/01/18 05:13 Pulse 94 08/01/18 05:13 Resp 16 08/01/18 05:13 BP 116/70 08/01/18 05:13 Pulse Ox 94 L 08/01/18 05:13 Intake & Output 07/31/18 08/01/18 08/01/18 18:59 06:59 18:59 Intake Total 1404 350 Balance 1404 350 Intake: Intake, IV Titration 350 Amount Cefepime 2 gm In Sodium 100 Chloride 0.9% 100 ml @ 200 mls/hr IVPB Q8HR [facility] Rx#:[id number] Vancomycin 1,500 mg In 250 Sodium Chloride 0.9% 250 ml @ 125 mls/hr IVPB Q8H [facility] Rx#:[id number] Oral 1404 Other: Voiding Method Toilet Toilet # Voids 1 - Exam Gen: ALert and Oriented, NAD Head: NCNT Mucus Memb: Mild thrush Lungs: Diminished Bilateral Bases Heart: Reg Reg Abdomen: Distended and Firm, Pos BS Ext: Gen Edema, no rashes Neuro: No sensory or motor deficits Psych: Calm although Expresses anxiety - Labs CBC & Chem 7: 08/01/18 08:29 08/01/18 08:29 Labs: Abnormal Lab Results - Last 24 Hours (Table) 07/31/18 08/01/18 08/01/18 Range/Units 05:58 08:29 08:29 WBC 3.4 L (3.8-10.6) k/uL RBC 2.74 L (4.30-5.90) m/uL Hgb 9.0 L (13.0-17.5) gm/dL Hct 27.3 L (39.0-53.0) % Lymphocytes # 0.3 L (1.0-4.8) k/uL Chloride 108 H (98-107) mmol/L Carbon Dioxide 19 L (22-30) mmol/L Glucose 109 H (74-99) mg/dL Prealbumin 11.0 L (18.0-42.0) mg/dL Microbiology - Last 24 Hours (Table) 07/28/18 17:07 Blood Culture - Preliminary Blood No Growth after 72 hours Assessment and Plan Plan: Assessment and Recommendations: Multiple Myeloma: - On Revlimid, Dexamethasone, and Velcade - Status Post 3 of 4 Velcade, Last held secondary to hospitalization - Ok to continue Rev and Dex while inpatient - Prophylaxic Acyclovir and Bactrim, as well as ASA per guidelines for RVD treatment - Restage as concern with clinical presentation for nephrotic syndrome, progressive disease or initial response of first cycle of chemotherapy Constipation: Induced by narcotics and lack of movement - AMitiza was started as outpatient to continue, no significant improvement - COntinue bowel regimen while inpatient and will send for authorization for next line therapy if still not improvement. - No obstruction or ileus noted on exams - CT or Xrays Myopathy and sedetary: - Secondary to pain with movement - Continue to encourage to get up and out of bed and increase movement - VTE Prophylaxis is recommended Fevers: Recurrent - Pann cultures ordered and pending - ? COmponent of pneumonia - Tumor or fevers related to myeloma - Afebrile since admission. milf increased temperatures although t max 100.2 ID is following Intractable Pain Secondary to Multiple Myeloma Neoplastic Process: - Worse with Movement - Fentanyl Patch to continue and breakthrough medication - Evaluation for pain block is resonable, will ask PMR to assess Normocytic Anemia: - Secondary to chemo and malignancy - Monitor CBC Hypocalcemia: - Secondary Biphosphonate recently received on 07.12.18 - This is expected, will add Tums TID for Calcium Supp Pneumonia: - Unclear if pneumonia versus other - Infectious disease is follwoing - CT Chest: Extravascular Fluid shifts again noted, no Evidence of Pulm EMbolism Severe Protein Calorie Malnutrition - Dietary consult ordered Anxiety/Depression - He is agitated today and restless - Effexor at HS to continue - Remeron for appetite and sleep (been suffering insomnia and since starting appetite and sleep improved, to continue) Abdominal Distention: - Flat abdominal Xay no Ileus or Obstruction - CT abdomen and pelvis have been reviewed Plan: - GI to manage Bowel regimen discussed with team in detail today - PLan for Possible pain block as outpatient to decrease narcotic use - Await restaging results - DISPO - Hopefully 24 hours if cultures negative and symptoms controlled - Start Day one of cycle two with revlimid and dexamethasone, will resume velcade as outpatient - Dex Schedule for Cycle Two: Day 1 (07/31), Day 2 (08/01), Day 4 (08/03), Day 5 (08/04), Day 8 (08/07),Day 9 (08/08),Day 11 (08/10),Day 12 (08/11). - Revlimid Day 1-14 (07/31/18-08/14/18). Velcade to resume likely next week with treatments the week of 08/05 and 08/12. His week off will be the week of 08/19 and he will begin cycle 3 on August 26. Cycle three he will return to 40mg dexamethasone weekly on the first day of treatment with Velcade. Consuelo Celaya [facility] Physician Attestation: I have completed the full history and physical and dev eloped the above impression and plan, agree with dictation by Consuelo Celaya, Dictated as a scribe
[2018-08-01] MEDS: PANTOPRAZOLE 40 MG TABLET PO SCH (17:11)
--- NOTE | 2018-08-01 19:04 | PN ---
PROGRESS NOTE DATE OF SERVICE: 08/01/2018 This 47-year-old gentleman with bibasilar pneumonia possibly also had chest pain. Chest pain has improved, but currently the patient is complaining of abdominal distention, constipation. GI is following the patient along with Hematology/Oncology. No chest pain. No palpitations. No fever. The most recent cultures are negative at this time. REVIEW OF SYSTEMS: CARDIOVASCULAR SYSTEM: No angina, palpitations. RESPIRATORY SYSTEM: As mentioned earlier. GI: As mentioned earlier. : No dysuria or retention. NERVOUS SYSTEM: No numbness, weakness. CURRENT MEDICATIONS: Reviewed. They include: 1. Tylenol p.r.n. 2. Zovirax 400 mg b.i.d. 3. DuoNeb q.i.d. and p.r.n. 4. Xanax. 5. Aspirin. 6. Cefepime 2 grams IV q.8. 7. Bentyl. 8. Duragesic patch. 9. Lasix. 10.Cephalexin. 11.Vancomycin. 12.Revlimid. 13.Protonix. 14.Cortrosyn. 15.Zanaflex. 16.Bactrim DS. 17.Vancomycin. 18.Effexor XR. PHYSICAL EXAMINATION: Alert and oriented x3. Pulse 84, blood pressure 150/70, respiration 20, temperature 98.1, pulse ox 98% on room air. HEENT: Conjunctivae normal. Oral mucosa moist. NECK: No jugular venous distention. No carotid bruit. No lymph node enlargement. CARDIOVASCULAR SYSTEM: S1, S2 muffled. RESPIRATORY SYSTEM: Breath sounds diminished at the bases. A few scattered rhonchi and crackles. ABDOMEN: Soft. Mild diffuse distention. Mild diffuse discomfort. No guarding. No rigidity. No mass palpable. Bowel sounds present. LEGS: No edema. No swelling. NERVOUS SYSTEM: No focal deficit. LABS: WBC 3.4, hemoglobin 9, sodium 138, potassium 4.1. Amylase negative. Cortisol is only 3. ASSESSMENT: 1. Bibasilar pneumonia possibly with failure of outpatient treatment, possibly hospital-acquired pneumonia versus gram-negative pneumonia. 2. Chest pain; possible pleurisy. 3. Increased D-dimer without any evidence of pulmonary embolism. 4. Bicytopenia with leukopenia, mild anemia. 5. Hypoalbuminemia. 6. History of hypertension. 7. History of depression. 8. Depressed cortisol with possibly adrenocortical insufficiency. RECOMMENDATIONS AND DISCUSSION: In this 47-year-old gentleman who presented with multiple complex medical issues, we will monitor the patient closely, continue the current management. I would also recommend endocrine evaluation. Otherwise, I would recommend an ACTH stimulation test. Otherwise, guarded prognosis because of multiple complex medical issues. Continue to monitor. Further recommendations to follow. Continue the rest of the medications. Continue the IV antibiotics. Guarded prognosis because of multiple complex medical issues. Further recommendations to follow. MMODL / IJN: [id number] /
[2018-08-01] MEDS: LORATADINE 10 MG TAB PO SCH (20:44)
[2018-08-01] MEDS: VENLAFAXINE HCL ER 75 MG CAP PO SCH (20:46)
[2018-08-01] MEDS: MIRTAZAPINE 15 MG TAB PO SCH (21:26)
--- NOTE | 2018-08-01 23:17 | P.PN ---
Subjective Progress Note Date: 08/01/18 Pleasant 47-year-old male who earlier this year had a sudden onset of significant pain related to his ribs and joints. 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 He has been initiated to chemotherapy with Velcade was doing relatively well. Shortly after that event vincent moreno had the onset of generalized malaise, fevers and shortness of breath and not feeling well and consequently presented to Hospital. There was evidence of a new left lower infiltration the patient was admitted in antibiotic therapy started. He responded well and was discharged home. Now presents with onset of fever and some chills and generalized malaise and significant increased amount of pain that he is having through his chest and back with increasing abdominal distention and constipation and feeling quite poorly. Because of his immunocompromised status he was brought into hospital and admitted. Infectious disease consultation was requested. He did have outpatient computed tomography scan without evidence of perforation obstruction or diverticulitis but there was some notation of some generalized anasarca. 08/01/2018 patient is feeling better today. Is seen by gastroenterology with the addition of lactulose is now had multiple stools in his abdominal bloating is improved. He is trying to improve his high protein intake to improve his low albumin and low protein state which will help his anasarca. Objective - Vital Signs Vital signs: Vital Signs Temp 98.3 F 08/01/18 21:00 Pulse 88 08/01/18 21:00 Resp 16 08/01/18 21:00 BP 113/69 08/01/18 21:00 Pulse Ox 95 08/01/18 21:00 Intake & Output 08/01/18 08/01/18 08/02/18 06:59 18:59 06:59 Intake Total 350 Balance 350 Weight 81.2 kg Intake: Intake, IV Titration 350 Amount Cefepime 2 gm In Sodium 100 Chloride 0.9% 100 ml @ 200 mls/hr IVPB Q8HR [facility] Rx#:[id number] Vancomycin 1,500 mg In 250 Sodium Chloride 0.9% 250 ml @ 125 mls/hr IVPB Q8H [facility] Rx#:[id number] Other: Voiding Method Toilet # Voids 1 3 - Exam Pleasant 47-year-old male, somewhat thin build has developed increase in abdominal girth with increased discomfort HEENT: Anicteric conjunctiva are pink and moist nasal mucosa grossly intact without significant lesions, there is no thrush. Neck: The neck is supple without significant lymphadenopathy or thyromegaly. Lungs: Symmetrical air entry few crackles at the basis no significant wheezing Heart: Regular rate and rhythm with an audible S1-S2, no S3 no S4. There is no significant murmur click or rub, PMI was nondisplaced. Abdomen: Minimal distention, There was no guarding or rebound. The tissue to the abdominal wall and flanks has edema Extremities: The upper extremities have excellent pulses they are symmetric, no significant petechiae or telangiectasia. No splinter hemorrhages were noted. Lower extremities have now developed some edema The peripheral pulses were 2+ and symmetric. Neuro: Awake alert oriented to person place and time. There are no acute new gross focal sensory motor deficits. - Labs CBC & Chem 7: 08/01/18 08:29 08/01/18 08:29 Labs: Abnormal Lab Results - Last 24 Hours (Table) 07/31/18 08/01/18 08/01/18 Range/Units 05:58 08:29 08:29 WBC 3.4 L (3.8-10.6) k/uL RBC 2.74 L (4.30-5.90) m/uL Hgb 9.0 L (13.0-17.5) gm/dL Hct 27.3 L (39.0-53.0) % Lymphocytes # 0.3 L (1.0-4.8) k/uL Chloride 108 H (98-107) mmol/L Carbon Dioxide 19 L (22-30) mmol/L Glucose 109 H (74-99) mg/dL Prealbumin 11.0 L (18.0-42.0) mg/dL Microbiology - Last 24 Hours (Table) 07/31/18 19:39 Blood Culture - Preliminary Blood No Growth after 24 hours 07/31/18 19:17 Blood Culture - Preliminary Blood No Growth after 24 hours 07/28/18 17:07 Blood Culture - Preliminary Blood No Growth after 96 hours Laboratory Results WBC 3.4 k/uL (3.8-10.6) L 08/01/18 08:29 RBC 2.74 m/uL (4.30-5.90) L 08/01/18 08:29 Hgb 9.0 gm/dL (13.0-17.5) L 08/01/18 08:29 Hct 27.3 % (39.0-53.0) L 08/01/18 08:29 MCV 99.5 fL (80.0-100.0) 08/01/18 08:29 MCH 32.8 pg (25.0-35.0) 08/01/18 08: MCHC 32.9 g/dL (31.0-37.0) 08/01/18 08: RDW 14.7 % (11.5-15.5) 08/01/18 08:29 Plt Count 427 k/uL (150-450) 08/01/18 08: Neutrophils % 80 % 08/01/18 08: Lymphocytes % 8 % 08/01/18 08: Monocytes % 10 % 08/01/18 08: Eosinophils % 1 % 08/01/18 08: Basophils % 0 % 08/01/18 08: Neutrophils # 2.7 k/uL (1.3-7.7) 08/01/18 08:29 Lymphocytes # 0.3 k/uL (1.0-4.8) L 08/01/18 08: Monocytes # 0.3 k/uL (0-1.0) 08/01/18 08: Eosinophils # 0.0 k/uL (0-0.7) 08/01/18 08: Basophils # 0.0 k/uL (0-0.2) 08/01/18 08:29 Anisocytosis Slight 07/28/18 17:07 Macrocytosis Slight 08/01/18 08:29 ESR 83 mm/hr (0-15) H 07/30/18 06:24 PT 10.9 sec (9.0-12.0) 07/30/18 02:25 INR 1.0 (<1.2) 07/30/18 02:25 APTT 26.7 sec (22.0-30.0) 07/28/18 17:07 D-Dimer 1.07 mg/L FEU (<0.60) H 07/29/18 12:00 Sodium 138 mmol/L (137-145) 08/01/18 08:29 Potassium 4.1 mmol/L (3.5-5.1) 08/01/18 08:29 Chloride 108 mmol/L (98-107) H 08/01/18 08:29 Carbon Dioxide 19 mmol/L (22-30) L 08/01/18 08:29 Anion Gap 11 mmol/L 08/01/18 08:29 BUN 15 mg/dL (9-20) 08/01/18 08:29 Creatinine 0.69 mg/dL (0.66-1.25) 08/01/18 08:29 Est GFR (CKD-EPI)AfAm >90 (>60 ml/min/1.73 sqM) 08/01/18 08:29 Est GFR (CKD-EPI)NonAf >90 (>60 ml/min/1.73 sqM) 08/01/18 08:29 Glucose 109 mg/dL (74-99) H 08/01/18 08:29 Plasma Lactic Acid Edgar 0.9 mmol/L (0.7-2.0) 07/28/18 17:07 Uric Acid 4.6 mg/dL (3.5-8.5) 07/30/18 11:24 Calcium 8.4 mg/dL (8.4-10.2) 08/01/18 08:29 Phosphorus 2.5 mg/dL (2.5-4.5) 07/30/18 11:24 Magnesium 1.8 mg/dL (1.6-2.3) 07/30/18 06:24 Total Bilirubin 0.4 mg/dL (0.2-1.3) 07/30/18 06:24 AST 11 U/L (17-59) L 07/30/18 06:24 ALT 32 U/L (21-72) 07/30/18 06:24 Alkaline Phosphatase 105 U/L (38-126) 07/30/18 06:24 Lactate Dehydrogenase 356 U/L (313-618) 07/30/18 11:24 Total Creatine Kinase 46 U/L (55-170) L 07/29/18 14:11 CK-MB (CK-2) 0.6 ng/mL (0.0-2.4) 07/29/18 14:11 CK-MB (CK-2) Rel Index 1.3 07/29/18 14:11 Troponin I <0.012 ng/mL (0.000-0.034) 07/29/18 14:11 C-Reactive Protein 57.1 mg/L (<10.0) H 07/30/18 06:24 NT-Pro-B Natriuret Pep 601 pg/mL 07/29/18 19:12 Total Protein 4.8 g/dL (6.3-8.2) L 07/30/18 06:24 Total Protein (PEP) 4.6 g/dL (6.2-8.2) L 07/29/18 19:12 Albumin 2.7 g/dL (3.5-5.0) L 07/30/18 06:24 Albumin (PEP) 2.54 g/dL (3.80-4.90) L 07/29/18 19:12 Prealbumin 11.0 mg/dL (18.0-42.0) L 07/31/18 05:58 Wwiez-8-Zhyfdbnvd 0.43 g/dL (0.10-0.40) H 07/29/18 19:12 Cwjds-8-Fsifdoobl 0.80 g/dL (0.60-1.00) 07/29/18 19:12 Beta Globulins 0.52 g/dL (0.60-1.30) L 07/29/18 19:12 Gamma Globulins 0.31 g/dL (0.70-1.50) L 07/29/18 19:12 PEP Interpretation SEE NOTE 07/29/18 19:12 Amylase <30 U/L (30-110) L 07/30/18 11:24 Lipase 26 U/L (23-300) 07/30/18 11:24 TSH 1.060 mIU/L (0.465-4.680) 07/30/18 11:24 Total Testosterone 361.00 ng/dL (123.06-813.86) 07/30/18 11:24 Cortisol 3 ug/dL 07/30/18 11:24 Urine Color Yellow 07/29/18 Unknown Urine Appearance Clear (Clear) 07/29/18 Unknown Urine pH 5.5 (5.0-8.0) 07/29/18 Unknown Ur Specific Dema >1.050 (1.001-1.035) H 07/29/18 Unknown Urine Protein Trace (Negative) H 07/29/18 Unknown Urine Glucose (UA) Negative (Negative) 07/29/18 Unknown Urine Ketones Negative (Negative) 07/29/18 Unknown Urine Blood Negative (Negative) 07/29/18 Unknown Urine Nitrite Negative (Negative) 07/29/18 Unknown Urine Bilirubin Negative (Negative) 07/29/18 Unknown Urine Urobilinogen <2.0 mg/dL (<2.0) 07/29/18 Unknown Ur Leukocyte Esterase Negative (Negative) 07/29/18 Unknown Urine Collection Time 24 hrs 07/29/18 21:06 Ur 24 Hour Volume 1825 mls (800-1800) H 07/29/18 21:06 U Tot Protein 24h, Calc 274 mg/24hr (42.0-225.0) H 07/29/18 21:06 Vancomycin Trough 19.6 ug/mL 07/30/18 11:24 IgG 336.0 mg/dL (700.0-1600.0) L 07/29/18 19:12 IgA 32.7 mg/dL (60.0-350.0) L 07/29/18 19:12 IgM <16.9 mg/dL (40.0-280.0) L 07/29/18 19:12 Serum ANDRE Interpret SEE NOTE 07/29/18 19:12 Free [place] LC, Quant 86.50 mg/dL (0.33-1.94) H 07/29/18 19:12 Free Lambda LC, Quant 0.85 mg/dL (0.57-2.63) 07/29/18 19:12 Influenza Type A RNA Not Detected (Not Detectd) 07/28/18 18:03 Influenza Type B (PCR) Not Detected (Not Detectd) 07/28/18 18:03 Microbiology 07/31/18 19:39 Blood Blood Culture - Preliminary No Growth after 24 hours 07/31/18 19:17 Blood Blood Culture - Preliminary No Growth after 24 hours 07/28/18 17:07 Blood Blood Culture - Preliminary No Growth after 96 hours 07/29/18 Unknown Urine,Clean Catch Urine Culture - Final Assessment and Plan (1) History of multiple myeloma Current Visit: Yes Status: Acute Code(s): Z85.79 - PRSNL HX OF MALIG NEOPLM OF LYMPHOID, HEMATPOETC & REL TISS SNOMED Code(s): 921618191598829 (2) Fever Narrative/Plan: 47-year-old male myeloma was recently discharged from hospital with concerns pneumonia represents back feeling very poorly. Increasing abdominal distention increasing difficulty with eating and drinking food and having some constipation. He developed increasing edema to the abdominal wall area is "quite uncomfortable. Some diuretic therapy was added to see if this cannot help with this evidence of some volume overload. With his multiple myeloma the patient is quite immunocompromised in cefepime and vancomycin have been added. He is on prophylaxis with antiviral therapy and pne umocystis prophylaxis also. Cultures are process will further help direct antibiotic therapy. Ongoing supportive care. Echocardiogram to be performed to evaluate cardiac status. Maneuvers to improve his pain control are also in process with no evidence of any deep venous thrombosis seen at this point in time. The patient is having great difficulties with pain and would query if the anesthesiology group or interventional radiology could not do a pain block to help us that he can pain is having from his multiple myeloma. 08/01/2018 patient started to feel better. His excessive fluid has improved a bit with some diuretic therapy. He is less short of breath. Bloating is improving and with his multiple stools today his abdomen feels considerably better. Pain control also seems to be slightly improved at this time. The neutropenia is resolving and the patient is without further fever. It should be able to de-escalate antibiotic therapy to his antiviral and pneumocystis prophylaxis as he is getting ready for transition to home. He relates that there is plans for him to see the outpatient clinic for pain services and hopefully rib blocks to improve his pain. Current Visit: Yes Status: Acute Code(s): R50.9 - FEVER, UNSPECIFIED SNOMED Code(s): 159354361 (3) Anasarca Current Visit: Yes Status: Acute Code(s): R60.1 - GENERALIZED EDEMA SNOMED Code(s): 757090710
[2018-08-02] MEDS: CEFEPIME 2 GM in SODIUM CHLORIDE 0.9% 100 ML IVPB SCH ×2 (00:45→11:03)
[2018-08-02] MEDS: IPRATROPIUM-ALBUTEROL 3 ML NEB INHALATION SCH ×3 (01:18→09:52)
[2018-08-02] MEDS: VANCOMYCIN 1,500 MG in SODIUM CHLORIDE 0.9% 250 ML IVPB SCH (04:10)
[2018-08-02 05:24] VITALS: BP 116/70; PULSE 82; TEMP 98
[2018-08-02] MEDS ORDERED: COSYNTROPIN 0.25 MG VIAL IVP ONE (05:30)
[2018-08-02 09:43] LABS: Basophils % (A) 0 %; Eosinophils % (A) 1 %; HCT 27.5 % (39.0-53.0); HGB 9.2 gm/dL (13.0-17.5); Hypochromasia Slight; Lymphocytes # (A) 0.4 k/uL (1.0-4.8); Lymphocytes % (A) 12 %; MCH 33.6 pg (25.0-35.0); MCHC 33.6 g/dL (31.0-37.0); MCV 100.1 fL (80.0-100.0); Macrocytosis Slight; Mean Platelet Volume 7.9; Monocytes # (A) 0.3 k/uL (0-1.0); Monocytes % (A) 9 %; Neutrophils # (A) 2.8 k/uL (1.3-7.7); Neutrophils % (A) 77 %; Platelet Count 436 k/uL (150-450); RBC 2.75 m/uL (4.30-5.90); RDW 14.9 % (11.5-15.5); WBC 3.6 k/uL (3.8-10.6)
[2018-08-02 09:51] LABS: Anion Gap 8 mmol/L; Blood Urea Nitrogen 19 mg/dL (9-20); Calcium 8.5 mg/dL (8.4-10.2); Carbon Dioxide 22 mmol/L (22-30); Chloride 107 mmol/L (98-107); Glucose 85 mg/dL (74-99); Potassium 3.8 mmol/L (3.5-5.1); Sodium 137 mmol/L (137-145)
[2018-08-02] MEDS: FUROSEMIDE 10 MG/ML 2 ML VIAL IV SCH (10:36)
[2018-08-02] MEDS: PANTOPRAZOLE 40 MG TABLET PO SCH (10:36)
[2018-08-02] MEDS: ASPIRIN 81 MG PO SCH (10:37)
[2018-08-02] MEDS: SENNOSIDES-DOCUSATE SODIUM 1 EACH TAB PO SCH (10:37)
[2018-08-02] MEDS: LACTULOSE 20 GM/30 ML CUP PO SCH (10:37)
[2018-08-02] MEDS: ACYCLOVIR 200 MG CAP PO SCH (10:37)
[2018-08-02] MEDS: REVLIMID 25 MG PO SCH (10:38)
[2018-08-02] MEDS: NON-FORMULARY DRUG (Lubiprostone [Amitiza] 24 MCG) PO SCH (10:38)
[2018-08-02] MEDS: SULFAMETHOX-TMP 800-160MG 1 EACH TAB PO SCH (10:39)
[2018-08-02] MEDS ORDERED: VANCOMYCIN TROUGH DUE 1 EACH MISC MISCELLANE ONE (11:00)
[2018-08-02] MEDS: HEPARIN SODIUM,PORCINE 5,000 UNIT/ML 1 ML VIAL SQ SCH (11:04)
[2018-08-02 11:06] VITALS: RESP 18
--- NOTE | 2018-08-02 17:34 | P.PN ---
Subjective Progress Note Date: 08/02/18 Principal diagnosis: Multiple Myeloma Awaiting ACTH and then discharge plan, agree with hydrocortiaone as dexamethasone does not have the glucocorticoid component Objective - Vital Signs Vital signs: Vital Signs Temp 98.0 F 08/02/18 05:00 Pulse 82 08/02/18 05:00 Resp 18 08/02/18 11:00 BP 116/70 08/02/18 05:00 Pulse Ox 95 08/02/18 05:00 Intake & Output 08/01/18 08/02/18 08/02/18 18:59 06:59 18:59 Intake Total 200 940 Balance 200 940 Weight 81.2 kg Intake: Intake, IV Titration 350 Amount Cefepime 2 gm In Sodium 100 Chloride 0.9% 100 ml @ 200 mls/hr IVPB Q8HR [facility] Rx#:[id number] Vancomycin 1,500 mg In 250 Sodium Chloride 0.9% 250 ml @ 125 mls/hr IVPB Q8H [facility] Rx#:[id number] Oral 200 590 Other: Voiding Method Toilet # Voids 3 1 - Exam Gen: ALert and Oriented, NAD Head: NCNT Mucus Memb: Mild thrush Lungs: Diminished Bilateral Bases Heart: Reg Reg Abdomen: Distended and Firm, Pos BS Ext: Gen Edema, no rashes Neuro: No sensory or motor deficits Psych: Calm although Expresses anxiety - Labs CBC & Chem 7: 08/02/18 09:19 08/02/18 09:19 Labs: Abnormal Lab Results - Last 24 Hours (Table) 08/02/18 Range/Units 09:19 WBC 3.6 L (3.8-10.6) k/uL RBC 2.75 L (4.30-5.90) m/uL Hgb 9.2 L (13.0-17.5) gm/dL Hct 27.5 L (39.0-53.0) % MCV 100.1 H (80.0-100.0) fL Lymphocytes # 0.4 L (1.0-4.8) k/uL Microbiology - Last 24 Hours (Table) 07/31/18 19:39 Blood Culture - Preliminary Blood No Growth after 24 hours 07/31/18 19:17 Blood Culture - Preliminary Blood No Growth after 24 hours 07/28/18 17:07 Blood Culture - Preliminary Blood No Growth after 96 hours Assessment and Plan Plan: Assessment and Recommendations: Multiple Myeloma: - On Revlimid, Dexamethasone, and Velcade - Status Post 3 of 4 Velcade, Last held secondary to hospitalization - Ok to continue Rev and Dex while inpatient - Prophylaxic Acyclovir and Bactrim, as well as ASA per guidelines for RVD treatment - Restage as concern with clinical presentation for nephrotic syndrome, progressive disease or initial response of first cycle of chemotherapy Constipation: Induced by narcotics and lack of movement - AMitiza was started as outpatient to continue, no significant improvement - COntinue bowel regimen while inpatient and will send for authorization for next line therapy if still not improvement. - No obstruction or ileus noted on exams - CT or Xrays Myopathy and sedetary: - Secondary to pain with movement - Continue to encourage to get up and out of bed and increase movement - VTE Prophylaxis is recommended Fevers: Recurrent - Pann cultures ordered and pending - ? COmponent of pneumonia - Tumor or fevers related to myeloma - Afebrile since admission. milf increased temperatures although t max 100.2 ID is following Intractable Pain Secondary to Multiple Myeloma Neoplastic Process: - Worse with Movement - Fentanyl Patch to continue and breakthrough medication - Evaluation for pain block is resonable, will ask PMR to assess Normocytic Anemia: - Secondary to chemo and malignancy - Monitor CBC Hypocalcemia: - Secondary Biphosphonate recently received on 07.12.18 - This is expected, will add Tums TID for Calcium Supp Pneumonia: - Unclear if pneumonia versus other - Infectious disease is follwoing - CT Chest: Extravascular Fluid shifts again noted, no Evidence of Pulm EMbolism Severe Protein Calorie Malnutrition - Dietary consult ordered Anxiety/Depression - He is agitated today and restless - Effexor at HS to continue - Remeron for appetite and sleep (been suffering insomnia and since starting appetite and sleep improved, to continue) Abdominal Distention: - Flat abdominal Xay no Ileus or Obstruction - CT abdomen and pelvis have been reviewed Plan: - GI to manage Bowel regimen discussed with team in detail today - PLan for Possible pain block as outpatient to decrease narcotic use - Await restaging results - DISPO - Hopefully 24 hours if cultures negative and symptoms controlled - Start Day one of cycle two with revlimid and dexamethasone, will resume velcade as outpatient - Dex Schedule for Cycle Two: Day 1 (07/31), Day 2 (08/01), Day 4 (08/03), Day 5 (08/04), Day 8 (08/07),Day 9 (08/08),Day 11 (08/10),Day 12 (08/11). - Revlimid Day 1-14 (07/31/18-08/14/18). Velcade to resume likely next week with treatments the week of 08/05 and 08/12. His week off will be the week of 08/19 and he will begin cycle 3 on August 26. Cycle three he will return to 40mg dexamethasone weekly on the first day of treatment with Velcade. - Agree with treatment for adrenal insufficiency - Ok for discharge from onc Consuel[facility] Cel[facility] Phys[facility] Attestation: I have completed the full history and physical and developed the above impression and plan, agree with dictation by Consuelo Celaya, Dictated as a scribe Time with Patient: Greater than 30 (Discussing discharge plan medication counseling and cordinating care)
--- NOTE | 2018-08-03 07:36 | DS ---
DISCHARGE SUMMARY DATE OF SERVICE: 08/02/2018. FINAL DIAGNOSES: 1. Bibasilar pneumonia possibly with failure of outpatient treatment, possibly hospital acquired pneumonia or gram-negative pneumonia. 2. Chest pain possible pleurisy, improved. 3. Increased D-dimer without any evidence of pulmonary embolism. 4. Bicytopenia with leukopenia, mild anemia. 5. Hypoalbuminemia. 6. History of hypertension. 7. History of depression. 8. Depressed cortisol with possible adrenocortical insufficiency. DISCHARGE DISPOSITION: The patient is being discharged in stable condition with guarded prognosis. Total time taken 35 minutes. HISTORY OF PRESENT ILLNESS: This 47-year-old gentleman with past medical history of multiple medical problems was admitted with bibasilar pneumonia, chest pain, treated with antibiotics, improved significantly but however the patient was found to have a random cortisol level at 8:00 am and the patient was also recommended ACTH simulation test which is also low at this time. I recommend the patient follow up with endocrine. Supplementation has been given. On exam, vital signs are stable. Cardiovascular: S1, S2. Abdomen soft. RESPIRATORY: A few rhonchi. Nervous system: No focal deficits. LABORATORY DATA: Labs showed WBC 3.6, hemoglobin 9.6. DISCHARGE ADVICE AND MEDICATIONS: 1. Discharge diet is cardiac diet. 2. Activity limited until followup. 3. Follow up with Dr. Pate in 2-3 days. 4. Follow up with Gastroenterology and Dr. Myers from Endocrine as recommended. 5. Follow up with hematology/oncologist as recommend. DISCHARGE MEDICATIONS ARE: 1. Aspirin 81 mg p.o. 2. Amitiza 25 mg p.o. b.i.d. 3. Bactrim DS 1 Sunday, Sunday, Sunday. 4. Claritin 10 mg q.h.s. 5. Lactulose 20 g p.o. b.i.d. 6. Dilaudid 4 mg q.6h p.r.n. 7. Duragesic patch 100 mcg q48 hours. 8. Pepcid 20 mg q.a.m. 9. Remeron 15 mg q.h.s. d. 10.Revlimid 25 mg as before. 11.Thorazine 10 mg p.o. t.i.d. p.r.n. 12.Xanax 0.5 b.i.d. p.r.n. 13.Zanaflex 2 mg p.o. q.h.s. 14.Zovirax 400 mg p.o. b.i.d. 15.Cortef 20 mg in the morning and 10 mg at night, to be adjusted in the outpatient setting evaluated by Dr. Myers the supervisor unloading. 16.Effexor XR 75 mg p.o. q.h.s. 17.Protonix 40 mg b.i.d. 18.Senokot-S 2 tabs p.o. b.i.d. p.r.n. 19.Tylenol p.r.n. Once again, the patient is being discharged in stable condition with guarded prognosis. MMODL / IJN: [id number] / MTDMaría
== END 2018-08-02 10:55 | disposition home or self-care (01) | DRG 177 ==
LOC: EC 16:02 → 4MS4W 18:15 → OBSVTOIN 07-29 14:55 → 3SCARD 07-29 15:40 → 3NMEDONC 08-01 00:16
PROVIDERS: ADMIT Internal Medicine; ATTEND Internal Medicine
DX: J15.6 Pneumonia due to other Gram-negative bacteria (principal); E43 Unspecified severe protein-calorie malnutrition; C90.00 Multiple myeloma not having achieved remission; E27.40 Unspecified adrenocortical insufficiency; D70.9 Neutropenia, unspecified; E83.51 Hypocalcemia; D64.81 Anemia due to antineoplastic chemotherapy; I10 Essential (primary) hypertension; F32.9 Major depressive disorder, single episode, unspecified; D64.9 Anemia, unspecified; R14.0 Abdominal distension (gaseous); K59.03 Drug induced constipation; G89.3 Neoplasm related pain (acute) (chronic); D63.0 Anemia in neoplastic disease; T45.1X5A Adverse effect of antineoplastic and immunosuppressive drugs, initial encounter; T40.2X5A Adverse effect of other opioids, initial encounter; Y95 Nosocomial condition; Z68.28 Body mass index [BMI] 28.0-28.9, adult; Z71.3 Dietary counseling and surveillance; Z79.82 Long term (current) use of aspirin; Z79.899 Other long term (current) drug therapy; Z90.49 Acquired absence of other specified parts of digestive tract; Z87.01 Personal history of pneumonia (recurrent); Z92.21 Personal history of antineoplastic chemotherapy; Z88.5 Allergy status to narcotic agent; Z83.3 Family history of diabetes mellitus; Z82.49 Family history of ischemic heart disease and other diseases of the circulatory system
CPT/HCPCS: 36415; 71046; 71275; 74022; 80048; 80053; 80202; 81003; 81050; 82024; 82150; 82533; 82550; 82553; 82784; 83605; 83615; 83690; 83735; 83880; 83883; 84100; 84134; 84156; 84165; 84403; 84443; 84484; 84550; 85025; 85379; 85610; 85652; 85730; 86140; 86334; 87040; 87086; 87502; 93005; 93306; 93970; 94640; 94760; 96365; 96367; 96375; 99285

== ENCOUNTER → 2018-11-04 | Outpatient (CLI) | payer BC ==
--- NOTE | 2018-11-05 07:39 | MR ---
EXAMINATION TYPE: MR thoracic spine wo/w con DATE OF EXAM: 11/04/2018 COMPARISON: CTA chest July 29, 2018. HISTORY: Multiple myeloma and kyphosis per order with mid back pain. TECHNIQUE: Multiplanar, multisequence imaging of thoracic spine is performed without contrast FINDINGS: Localizer shows grade 1 retrolisthesis of C4 on C5 And C5 on C6 with reversal of normal cer vical curvature. Spinal cord shows normal course, caliber, and signal as it courses the thoracic spi ne. There is mild height loss involving the T4 vertebra with abnormal signal, corresponding CT shows lytic lesion posterior aspect of this vertebra. Multiple additional small lytic lesions throughout th e thoracic vertebra on CT are less well seen on MRI with overall heterogeneity of bone marrow signal intensity. Some scattered lesions however are present including rounded lesion of low T1 and T2 signa l anterior inferior T5 vertebra without definitive CT correlate on prior. Alignment is stable and sat isfactory. No suspicious spinal canal enhancement is seen. There are posterior disc herniations effacing the anterior thecal sac at T10-T11 and T11-T12 levels o n the axial images 25 and 21 respectively. Bony lesion right T4 level is redemonstrated axial image 1 7. Axial images also show bilateral rib heterogeneity with suspected rib lesions including expansile destructive posterior left 11th rib axial image [address] coronal image 114. IMPRESSION: Multiple myelomatous lesions redemonstrated is seen better on CT versus MRI throughout th e thoracic spine including rib lesions, destructive lesion posterior left T11 rib redemonstrated. The re is new mild height loss or pathologic compression fracture at T4 level from CT. Spinal cord is pre served.
== END | disposition home or self-care (01) ==
LOC: RADMRIMAIN 17:39
PROVIDERS: ATTEND Internal Medicine Hematology & Oncology
DX: M48.54XA Collapsed vertebra, not elsewhere classified, thoracic region, initial encounter for fracture (principal); C90.00 Multiple myeloma not having achieved remission
CPT/HCPCS: 72157; A9585

== ENCOUNTER 2019-01-05 06:37 | Emergency (ER) | payer BC ==
[2019-01-05 06:59] VITALS: RESP 18
[2019-01-05] MEDS ORDERED: IBUPROFEN 600 MG TAB PO STA (07:00)
[2019-01-05] MEDS ORDERED: SODIUM CHLORIDE 0.9% 1,000 ML IV SCH (07:00)
[2019-01-05] MEDS ORDERED: IPRATROPIUM-ALBUTEROL 3 ML NEB INHALATION STA (07:04)
--- NOTE | 2019-01-05 07:04 | ED ---
Fever HPI - General Source: patient, family, RN notes reviewed, old records reviewed Mode of arrival: ambulatory Limitations: no limitations <Marilee Yan - Last Filed: 01/05/19 08:53> <Hai Ptoter - Last Filed: 01/05/19 09:18> - General Chief Complaint: Fever Stated Complaint: Ill post chemo Time Seen by Provider: 01/05/19 06:49 - History of Present Illness Initial Comments: Patient is a pleasant 48-year-old male with history of multiple myeloma currently on chemotherapy treatment daily and receiving IV infusions of chemotherapy on Tuesdays and Wednesdays. He follows with Dr. Parr. He presents today with complaints of fever and congestion for the past 2 days. He was told that if he wasn't feeling better by this morning he should come for evaluation. Patient reports he was hospitalized earlier this year for pneumonia. He's been on chemotherapy for the past 6 months. Patient reportedly has had no abdominal pain. Patient had some Tylenol Cold and sinus at 5 AM. Patient reports that his cough has had some yellow productive phlegm. (Marilee Yan) - Related Data Home Medications Medication Instructions Recorded Confirmed Loratadine [Claritin] 10 mg PO HS 06/16/18 01/05/19 ALPRAZolam [Xanax] 0.25 mg PO BID PRN 07/18/18 01/05/19 Aspirin [Adult Low Dose Aspirin EC] 81 mg PO DAILY 07/18/18 01/05/19 Lenalidomide [Revlimid] 25 mg PO DIRECTED 07/18/18 01/05/19 Sulfamethox-Tmp 800-160Mg [Bactrim 1 tab PO MOWEFR 07/18/18 01/05/19 DS 800-160 mg] tiZANidine [Zanaflex] 2 mg PO TID 07/18/18 01/05/19 Lubiprostone [Amitiza] 24 mcg PO BID 07/28/18 01/05/19 Mirtazapine [Remeron] 15 mg PO HS 07/28/18 01/05/19 D-Methorphan/PE/Acetaminophen 2 tab PO Q4H PRN 01/05/19 01/05/19 [Tylenol Cold Max Day Caplet] Hydrocortisone [Cortef] 10 mg PO DAILY 01/05/19 01/05/19 Hydrocortisone [Cortef] 20 mg PO HS 01/05/19 01/05/19 Lisinopril [Zestril] 10 mg PO DAILY 01/05/19 01/05/19 Sennosides-Docusate Sodium 2 tab PO BID 01/05/19 01/05/19 [Senokot-S] fentaNYL 12MCG/HR PATCH [Duragesic 1 patch TRANSDERM Q48H 01/05/19 01/05/19 12MCG/HR] fentaNYL 25MCG/HR PATCH [Duragesic 1 patch TRANSDERM Q48H 01/05/19 01/05/19 25MCG/HR] Previous Rx's Medication Instructions Recorded Levofloxacin [Levaquin] 750 mg PO DAILY 5 Days #5 tab 01/05/19 Allergies Allergy/AdvReac Type Severity Reaction Status Date / Time morphine Allergy Itching Verified 01/05/19 08:43 Review of Systems ROS Other: All systems not noted in ROS Statement are negative. <Marilee Yan - Last Filed: 01/05/19 08:53> ROS Other: All systems not noted in ROS Statement are negative. <Hai Potter - Last Filed: 01/05/19 09:18> ROS Statement: Those systems with pertinent positive or pertinent negative responses have been documented in the HPI. Past Medical History Past Medical History: Cancer, Hypertension Additional Past Medical History / Comment(s): Never taken hypertensive m edication., Multiple Myeloma History of Any Multi-Drug Resistant Organisms: None Reported Past Surgical History: Appendectomy Past Anesthesia/Blood Transfusion Reactions: No Reported Reaction Past Psychological History: No Psychological Hx Reported, Depression Smoking Status: Never smoker Past Alcohol Use History: Occasional Past Drug Use History: None Reported - Past Family History Father Family Medical History: Hypertension <Marilee Yan - Last Filed: 01/05/19 08:53> General Exam Limitations: no limitations General appearance: alert, in no apparent distress Head exam: Present: atraumatic, normocephalic, normal inspection Eye exam: Present: normal appearance, PERRL, EOMI. Absent: scleral icterus, conjunctival injection, periorbital swelling ENT exam: Present: normal exam, mucous membranes moist Neck exam: Present: normal inspection. Absent: tenderness, meningismus, lymphadenopathy Respiratory exam: Present: normal lung sounds bilaterally. Absent: respiratory distress, wheezes, rales, rhonchi, stridor Cardiovascular Exam: Present: regular rate, normal rhythm, normal heart sounds. Absent: systolic murmur, diastolic murmur, rubs, gallop, clicks GI/Abdominal exam: Present: soft Back exam: Present: normal inspection Neurological exam: Present: alert, oriented X3, CN II-XII intact Psychiatric exam: Present: normal affect, normal mood <Marilee Yan - Last Filed: 01/05/19 08:53> - General Exam Comments Initial Comments: 48-year-old male. Alert and oriented. No distress. (Marilee Yan) Course <Hai Potter - Last Filed: 01/05/19 09:18> Vital Signs 01/05/19 01/05/19 01/05/19 06:42 06:56 07:44 Temperature 99.8 F H Pulse Rate 112 H 87 Respiratory 20 18 Rate Blood Pressure 135/78 O2 Sat by Pulse 98 Oximetry 01/05/19 01/05/19 07:51 09:14 Temperature 99.2 F Pulse Rate 99 75 Respiratory 18 Rate Blood Pressure 118/71 O2 Sat by Pulse 99 Oximetry - Reevaluation(s) Reevaluation #1: 01/05/19 09:17 The supervision: I personally did review this case and discussed the findings with Dr. Parr who is covering Dr. Monzon today. Patient does not want stay in hospital patient will instead be discharged on oral antibiotics with close follow-up. (Hai Potter) Medical Decision Making - Lab Data Result diagrams: 01/05/19 07:14 01/05/19 07:14 <Marilee Yan - Last Filed: 01/05/19 08:53> - Lab Data Result diagrams: 01/05/19 07:14 01/05/19 07:14 <Hai Potter - Last Filed: 01/05/19 09:18> - Medical Decision Making This is a 48-year-old male presents emergency department today for evaluation with chief complaint of cough congestion, and fever. He has history of multiple myeloma, benign oral chemotherapy and IV infusions. Patient has a fever and 0.8 on arrival. Lungs are relatively clear. He was given 1 breathing treatmen ts to help with symptoms he does report improvement. On reevaluation is resting comfortably in bed. At this time patient's influenza test negative. The blood cell count is 5.0. Patient's chest x-ray was read as multiple myeloma changes but no signs of pneumonia. At this time Patient states he feels well for discharge home. We discussed this with Dr. Parr, and Patient can be started on oral Levaquin, given dose in emergency department and can follow-up with them out patiently. Discussed if he had any worsening symptoms to return for reevaluation and Patient is agreeable treatment plan will comply. Return parameters were discussed. (Marilee Yan) - Lab Data Lab Results 01/05/19 01/05/19 01/05/19 Range/Units 07:14 07:14 07:14 WBC 5.0 (3.8-10.6) k/uL RBC 3.51 L (4.30-5.90) m/uL Hgb 11.7 L (13.0-17.5) gm/dL Hct 36.2 L (39.0-53.0) % MCV 103.2 H (80.0-100.0) fL MCH 33.3 (25.0-35.0) pg MCHC 32.2 (31.0-37.0) g/dL RDW 15.4 (11.5-15.5) % Plt Count 261 (150-450) k/uL Neutrophils % (Manual) 74 % Band Neutrophils % 6 % Lymphocytes % (Manual) 11 % Monocytes % (Manual) 8 % Metamyelocytes % 1 % Myelocytes % 1 % Neutrophils # (Manual) 4.00 (1.3-7.7) k/uL Lymphocytes # (Manual) 0.55 L (1.0-4.8) k/uL Monocytes # (Manual) 0.40 (0-1.0) k/uL Metamyelocytes # (Man) 0.05 H (0) k/uL Myelocytes # (Manual) 0.05 H (0) k/uL Nucleated RBCs 0 (0-0) /100 WBC Manual Slide Review Performed Macrocytosis Slight PT (9.0-12.0) sec INR (<1.2) APTT (22.0-30.0) sec Sodium 136 L (137-145) mmol/L Potassium 3.4 L (3.5-5.1) mmol/L Chloride 102 (98-107) mmol/L Carbon Dioxide 25 (22-30) mmol/L Anion Gap 9 mmol/L BUN 10 (9-20) mg/dL Creatinine 0.90 (0.66-1.25) mg/dL Est GFR (CKD-EPI)AfAm >90 (>60 ml/min/1.73 sqM) Est GFR (CKD-EPI)NonAf >90 (>60 ml/min/1.73 sqM) Glucose 144 H (74-99) mg/dL Plasma Lactic Acid Edgar 1.9 (0.7-2.0) mmol/L Calcium 9.2 (8.4-10.2) mg/dL Total Bilirubin 1.9 H (0.2-1.3) mg/dL AST 28 (17-59) U/L ALT 34 (21-72) U/L Alkaline Phosphatase 70 (38-126) U/L Total Protein 6.6 (6.3-8.2) g/dL Albumin 4.2 (3.5-5.0) g/dL Urine Color Urine Appearance (Clear) Urine pH (5.0-8.0) Ur Specific Gamaliel (1.001-1.035) Urine Protein (Negative) Urine Glucose (UA) (Negative) Urine Ketones (Negative) Urine Blood (Negative) Urine Nitrite (Negative) Urine Bilirubin (Negative) Urine Urobilinogen (<2.0) mg/dL Ur Leukocyte Esterase (Negative) Urine RBC (0-5) /hpf Urine WBC (0-5) /hpf Hyaline Casts (0-2) /lpf Urine Mucus (None) /hpf Influenza Type A RNA (Not Detectd) Influenza Type B (PCR) (Not Detectd) 01/05/19 01/05/19 01/05/19 Range/Units 07:14 07:43 08:00 WBC (3.8-10.6) k/uL RBC (4.30-5.90) m/uL Hgb (13.0-17.5) gm/dL Hct (39.0-53.0) % MCV (80.0-100.0) fL MCH (25.0-35.0) pg MCHC (31.0-37.0) g/dL RDW (11.5-15.5) % Plt Count (150-450) k/uL Neutrophils % (Manual) % Band Neutrophils % % Lymphocytes % (Manual) % Monocytes % (Manual) % Metamyelocytes % % Myelocytes % % Neutrophils # (Manual) (1.3-7.7) k/uL Lymphocytes # (Manual) (1.0-4.8) k/uL Monocytes # (Manual) (0-1.0) k/uL Metamyelocytes # (Man) (0) k/uL Myelocytes # (Manual) (0) k/uL Nucleated RBCs (0-0) /100 WBC Manual Slide Review Macrocytosis PT 10.5 (9.0-12.0) sec INR 1.0 (<1.2) APTT 25.8 (22.0-30.0) sec Sodium (137-145) mmol/L Potassium (3.5-5.1) mmol/L Chloride (98-107) mmol/L Carbon Dioxide (22-30) mmol/L Anion Gap mmol/L BUN (9-20) mg/dL Creatinine (0.66-1.25) mg/dL Est GFR (CKD-EPI)AfAm (>60 ml/min/1.73 sqM) Est GFR (CKD-EPI)NonAf (>60 ml/min/1.73 sqM) Glucose (74-99) mg/dL Plasma Lactic Acid Edgar (0.7-2.0) mmol/L Calcium (8.4-10.2) mg/dL Total Bilirubin (0.2-1.3) mg/dL AST (17-59) U/L ALT (21-72) U/L Alkaline Phosphatase (38-126) U/L Total Protein (6.3-8.2) g/dL Albumin (3.5-5.0) g/dL Urine Color Yellow Urine Appearance Clear (Clear) Urine pH 6.5 (5.0-8.0) Ur Specific Gamaliel 1.025 (1.001-1.035) Urine Protein 1+ H (Negative) Urine Glucose (UA) Negative (Negative) Urine Ketones Negative (Negative) Urine Blood Trace H (Negative) Urine Nitrite Negative (Negative) Urine Bilirubin Negative (Negative) Urine Urobilinogen <2.0 (<2.0) mg/dL Ur Leukocyte Esterase Negative (Negative) Urine RBC 1 (0-5) /hpf Urine WBC 2 (0-5) /hpf Hyaline Casts 17 H (0-2) /lpf Urine Mucus Few H (None) /hpf Influenza Type A RNA Not Detected (Not Detectd) Influenza Type B (PCR) Not Detected (Not Detectd) 01/05/19 08:51 EKG performed at 7:49 AM showed normal sinus rhythm possible left atrial enlargement or to when EKG noted. Ventricular rate of 92 bpm. Pulse 136 most seconds. QRS ration is 88 ms. QT QTc is 350/442 ms. No evidence of ST elevation. (Marilee Yan) Disposition Is patient prescribed a controlled substance at d/c from ED?: No Time of Disposition: 08:58 <Marilee Yan - Last Filed: 01/05/19 08:53> <Hai Potter - Last Filed: 01/05/19 09:18> Clinical Impression: URI (upper respiratory infection), Immunocompromised state, Fever Disposition: HOME SELF-CARE Condition: Stable Instructions (If sedation given, give patient instructions): Fever in Adults (ED), Upper Respiratory Infection (ED) Additional Instructions: Please use medication as discussed. Please follow up with family doctor if symptoms have not improved over the next two days. Ensure follow-up with Dr. Parr as well. He can use Tylenol Cold and sinus for congestion and fevers. Please return to the emergency room if your symptoms increase or worsen or for any other concerns. Prescriptions: Levofloxacin [Levaquin] 750 mg PO DAILY 5 Days #5 tab Referrals: Jackie Pate III, MD [Primary Care Provider] - 1-2 days
[2019-01-05 07:42] LABS: ALT 34 U/L (21-72); AST 28 U/L (17-59); African American GFR (CKD) >90 (>60 ml/min/1.73 sqM); Albumin 4.2 g/dL (3.5-5.0); Alkaline Phosphatase 70 U/L (38-126); Anion Gap 9 mmol/L; Blood Urea Nitrogen 10 mg/dL (9-20); Calcium 9.2 mg/dL (8.4-10.2); Carbon Dioxide 25 mmol/L (22-30); Chloride 102 mmol/L (98-107); Glucose 144 mg/dL (74-99); Potassium 3.4 mmol/L (3.5-5.1); Sodium 136 mmol/L (137-145); Total Bilirubin 1.9 mg/dL (0.2-1.3); Total Protein 6.6 g/dL (6.3-8.2)
[2019-01-05] MEDS: SODIUM CHLORIDE 0.9% 500 ML 500 ML IV SCH ×3 (07:43→09:09)
[2019-01-05 07:48] LABS: Partial Thromboplastin Time 25.8 sec (22.0-30.0); Prothrombin Time 10.5 sec (9.0-12.0)
[2019-01-05 07:51] LABS: HCT 36.2 % (39.0-53.0); HGB 11.7 gm/dL (13.0-17.5); MCH 33.3 pg (25.0-35.0); MCHC 32.2 g/dL (31.0-37.0); MCV 103.2 fL (80.0-100.0); Macrocytosis Slight; Mean Platelet Volume 7.5; Platelet Count 261 k/uL (150-450); RBC 3.51 m/uL (4.30-5.90); RDW 15.4 % (11.5-15.5)
--- NOTE | 2019-01-05 07:55 | XR ---
EXAMINATION TYPE: XR chest 2V DATE OF EXAM: 01/05/2019 HISTORY: Fever. REFERENCE: Previous study dated 07/28/2018. FINDINGS: Heart size is upper limits of normal. Lungs otherwise clear. Pleural spaces are clear. The heart is not enlarged. Multiple rib lesions are seen. This may relate to the patient's multiple myeloma. IMPRESSION: 1. NO ACUTE INTRATHORACIC ABNORMALITY. 2. MULTIPLE RIB LESIONS COMPATIBLE WITH THE PATIENT'S HISTORY OF MULTIPLE MYELOMA.
[2019-01-05 08:15] LABS: Band Neutrophils % 6 %; Lymphocytes # (M) 0.55 k/uL (1.0-4.8); Metamyelocytes # (M) 0.05 k/uL (0); Metamyelocytes % 1 %; Myelocytes # (M) 0.05 k/uL (0); Myelocytes % 1 %; Neutrophils % (M) 74 %; Nucleated Red Blood Cells 0 /100 WBC (0-0); Total Cells Counted 200
[2019-01-05 08:32] LABS: Appearance,Urine Clear (Clear); Bilirubin,Urine Negative (Negative); Blood,Urine Trace (Negative); Color,Urine Yellow; Glucose,Urine (UA) Negative (Negative); Hyaline Casts,Urine 17 /lpf (0-2); Ketones,Urine Negative (Negative); Leukocyte Esterase,Urine Negative (Negative); Mucus,Urine Few /hpf; Nitrite,Urine Negative (Negative); PH, Urine 6.5 (5.0-8.0); Protein,Urine 1+ (Negative); RBC,Urine 1 /hpf (0-5); Specific Gravity,Urine 1.025 (1.001-1.035); Urobilinogen,Urine <2.0 mg/dL (<2.0); WBC,Urine 2 /hpf (0-5)
[2019-01-05] MEDS ORDERED: LEVOFLOXACIN 750 MG TAB PO STA (08:58)
[2019-01-05 09:16] VITALS: BP 118/71; PULSE 75; TEMP 99.2
== END 2019-01-05 09:23 | disposition home or self-care (01) ==
LOC: EC 06:37
DX: J06.9 Acute upper respiratory infection, unspecified (principal); D89.9 Disorder involving the immune mechanism, unspecified; C90.00 Multiple myeloma not having achieved remission; I10 Essential (primary) hypertension; F32.9 Major depressive disorder, single episode, unspecified; Z87.01 Personal history of pneumonia (recurrent); Z92.21 Personal history of antineoplastic chemotherapy; Z79.82 Long term (current) use of aspirin; Z79.52 Long term (current) use of systemic steroids; Z79.891 Long term (current) use of opiate analgesic; Z79.899 Other long term (current) drug therapy; Z88.5 Allergy status to narcotic agent
CPT/HCPCS: 36415; 71046; 80053; 81001; 83605; 85025; 85610; 85730; 87040; 87086; 87502; 93005; 94640; 99284

== ENCOUNTER → 2019-01-23 | Outpatient (CLI) | payer BC ==
--- NOTE | 2019-01-23 11:25 | XR ---
EXAMINATION TYPE: XR chest 2V DATE OF EXAM: 01/23/2019 COMPARISON: 01/05/2019 TECHNIQUE: PA and lateral views submitted. HISTORY: Pain FINDINGS: The lungs are clear and there is no pneumothorax, pleural effusion, or focal pneumonia. Heart promi nent in size. There are bilateral rib deformities one of which appears to be expansile involving the posterior left lower rib cage. No overt failure. Demineralization of clavicle noted bilaterally. IMPRESSION: 1. Findings suspicious for rib metastasis possibly multiple myeloma correlate clinically.
--- NOTE | 2019-01-23 11:31 | XR ---
EXAMINATION TYPE: XR bone survey complete DATE OF EXAM: 01/23/2019 COMPARISON: NONE HISTORY: Pretransplant There is severe degenerative disc disease involving levels C4-C5 and moderate changes at C5-6. No svetlana tructive changes. No lytic or blastic changes. 2 views of the calvarium demonstrate no intraosseous lesion. Calvarium intact. AP view of the pelvis demonstrates no suspicious lesions. Sclerotic lesions involving the femoral hea d and neck and right likely related to bone. Calcification pelvis likely related to vascular phleboli ths. SI joints symmetric. There appears to be a rounded lucency in the mid to distal diaphysis of the right humerus measuring 1 .4 cm suspicious for a lytic intraosseous lesion. Images of lower extremities demonstrate no focal lesion. Images of the thoracic and lumbar spine demonstrate mild diffuse osteopenia and degenerative change w ith findings suggestive of previous vertebroplasty. Multilevel facet arthropathy noted. IMPRESSION: 1. There is a single lytic intraosseous lesion which in the mid to distal diaphysis of the right hugo koffi measuring 1.4 cm. Differential diagnosis would include multiple myeloma or metastases. Correlate clinically.
[2019-01-23 20:13] LABS: Hepatitis B Surface AB- Quant 4.5 mIU/mL; Hepatitis B Surface Antibody Non-Reactive (Non-Reactive); Hepatitis B Surface Antigen Non-Reactive (Non-Reactive); Hepatitis C IgG Antibody Non-Reactive (Non-Reactive)
[2019-01-23 20:58] LABS: HIV 1 AB Non-Reactive (Non-Reactive); HIV 2 AB Non-Reactive (Non-Reactive); HIV AB P24 Non-Reactive (Non-Reactive); HIV P24 AG Non-Reactive (Non-Reactive)
== END | disposition home or self-care (01) ==
LOC: CPPFTMAIN 10:33
PROVIDERS: ATTEND Internal Medicine Hematology & Oncology
DX: Z01.818 Encounter for other preprocedural examination (principal); M89.9 Disorder of bone, unspecified; C90.00 Multiple myeloma not having achieved remission; Z01.812 Encounter for preprocedural laboratory examination
CPT/HCPCS: 36415; 71046; 77075; 83615; 86695; 86696; 86704; 86706; 86780; 86790; 86803; 87340; 87390; 93005

== ENCOUNTER → 2019-01-24 | Outpatient (CLI) | payer BC ==
--- NOTE | 2019-01-27 11:43 | ECHOF ---
Referral Reason:C90.00 Pre Transplant MEASUREMENTS -------- HEIGHT: 167.6 cm WEIGHT: 68.0 kg BP: RVIDd: 2.9 cm (< 3.3) IVSd: 1.0 cm (0.6 - 1.1) LVIDd: 4.6 cm (3.9 - 5.3) LVPWd: 1.4 cm (0.6 - 1.1) IVSs: 1.7 cm LVIDs: 2.4 cm LVPWs: 1.8 cm LA Diam: 3.9 cm (2.7 - 3.8) LAESV Index (A-L): 29.22 ml/m Ao Diam: 3.3 cm (2.0 - 3.7) AV Cusp: 2.1 cm (1.5 - 2.6) LA Diam: 3.2 cm (2.7 - 3.8) MV EXCURSION: 21.518 mm (> 18.000) MV EF SLOPE: 103 mm/s (70 - 150) EPSS: 0.7 cm MV E Isaiah: 1.47 m/s MV DecT: 193 ms MV A Isaiah: 0.92 m/s MV E/A Ratio: 1.60 RAP: 5.00 mmHg RVSP: 31.50 mmHg TAPSE: 29.28 mm FINDINGS -------- Sinus rhythm. This was a technically good study. The left ventricular size is normal. There is mild concentric left ventricular hypertrophy. Overa ll left ventricular systolic function is normal with, an EF between 55 - 60 %. The diastolic fillin g pattern is normal for the age of the patient 15.78. The right ventricle is normal in size. The right ventricular wall thickness is normal measuring < 5 mm. The right ventricular systolic function is normal. The left atrial size is normal. Normal LA size by volume 22+/-6 ml/m2. The right atrial size is normal. The aortic valve is trileaflet and appears structurally normal. The mitral valve is normal. Mild mitral regurgitation is present. The tricuspid valve appears structurally normal. Mild tricuspid regurgitation present. Right vent ricular systolic pressure is normal at < 35 mmHg. There is no pulmonic regurgitation present. The aortic root size is normal. Normal inferior vena cava with normal inspiratory collapse consistent with estimated right atrial pre ssure of 5 mmHg. All pulmonary veins appear normal. The flow patterns, measured by Doppler, appear normal. There is no pericardial effusion. CONCLUSIONS -------- 1. Sinus rhythm. 2. This was a technically good study. 3. The left ventricular size is normal. 4. There is mild concentric left ventricular hypertrophy. 5. Overall left ventricular systolic function is normal with, an EF between 55 - 60 %. 6. The diastolic filling pattern is normal for the age of the patient 15.78 7. The right ventricle is normal in size. 8. The right ventricular wall thickness is normal measuring < 5mm. 9. The right ventricular systolic function is normal. 10. The left atrial size is normal. 11. Normal LA size by volume 22+/-6 ml/m2. 12. The right atrial size is normal. 13. The aortic valve is trileaflet and appears structurally normal. 14. The mitral valve is normal. 15. Mild mitral regurgitation is present. 16. The tricuspid valve appears structurally normal. 17. Mild tricuspid regurgitation present. 18. Right ventricular systolic pressure is normal at < 35 mmHg. 19. There is no pulmonic regurgitation present. 20. The aortic root size is normal. 21. Normal inferior vena cava with normal inspiratory collapse consistent with estimated right atrial pressure of 5 mmHg. 22. All pulmonary veins appear normal. 23. The flow patterns, measured by Doppler, appear normal. 24. There is no pericardial effusion. SUPPORT COORDINATOR: Mary Beth Jimenez [facility]
== END | disposition home or self-care (01) ==
LOC: RADECHMAIN 15:35
PROVIDERS: ATTEND Internal Medicine Hematology & Oncology
DX: I08.1 Rheumatic disorders of both mitral and tricuspid valves (principal)
CPT/HCPCS: 93306

== ENCOUNTER → 2019-10-07 | Outpatient (CLI) | payer BC ==
--- NOTE | 2019-10-08 09:10 | MR ---
EXAMINATION TYPE: MR brain/cspine wo/w DATE OF EXAM: 10/07/2019 COMPARISON: NONE HISTORY: Rt facial/arm numbness, visual disturbance, multiple myeloma 2019 per order. Short-term drew ry loss per patient. TECHNIQUE: Multiplanar, multisequence images of the cervical spine, brain, and brainstem are all performed witho ut and with IV contrast, utilizing 8.5 mL intravenous Gadavist . FINDINGS: Brain: Diffusion weighted images demonstrate no evidence of a recent infarct or other diffusion abnormality. There is no worrisome extra-axial fluid collection. The ventricular system and cisternal spaces ar e normal in size and appearance. The brain volume is age appropriate. There are scattered foci of T2 hyperintensity seen throughout the white matter bilaterally. I identified roughly 40-50 small scatte red lesions with a few larger lesions involving bilateral frontal lobes axial image 17, for reference there is 7 x 4 mm right frontal lesion noted. Midline structures demonstrate normal morphology. The craniocervical junction appears within normal limits. Post contrast images demonstrate no abnormal enhancement. The dural venous sinuses appear pa tent. Prominent arachnoid granulation felt present axial image 12 near the draining venous confluence with linear rim enhancement and local mass effect. Nasal septum slightly deviated to left of midline . The visualized sinuses are clear and the globes are intact. IMPRESSION: Moderate nonspecific white matter changes. Given patient's age and symptoms of extremity numbness, demyelinating disease needs to be considered among the possible broad differential. C-SPINE: FINDINGS: Sagittal images of the cervical spine show the craniocervical junction to appear within nor mal limits. The cervical and upper thoracic spinal cord is normal in caliber and signal. Loss of nor mal cervical curvature with grade 1 retrolisthesis C4 on C5 and C5 on C6. There is minimal retrolisth esis C3 on C4 and C6 on C7. The vertebral body heights are normal. Moderate disc space narrowing C4- C5 and C5-C6 levels with mild anterior spurring. The bone marrow signal intensity is within normal li mits. No suspicious postcontrast enhancement. Axial images show the C2-C3 level to appear within normal limits. Axial images at C3-C4 level show uncovertebral facet degenerative changes bilaterally causing mild-to -moderate left and mild right-sided neural foraminal narrowing. Mild broad-based disc protrusion mini darian effaces the anterior thecal sac and contributes to bilateral neural foraminal narrowing. Axial images at C4-C5 levels show spondylolisthesis with right paracentral spur disc complex effacing anterior thecal sac and causing mild/moderate right sided neural foraminal narrowing. Axial images at C5-C6 level show spondylolisthesis with broad-based posterior and foraminal spur disc complex effacing anterolateral thecal sac and causing advanced left and moderate to advanced right-s ided neural foraminal narrowing. Axial images at C6-C7 level show right foraminal spur disc complex effacing the anterolateral thecal sac and causing moderate to advanced right-sided neural foraminal narrowing. There is mild to moderat e left-sided neural foraminal narrowing due to marginal spurring. Axial images at C7-T1 level are within normal limits. There appears to be abnormal enhancing tissue surrounding right carotid bulb and portions of the righ t distal common and proximal internal and external carotid arteries. IMPRESSION: 1. Loss of normal cervical curvature with multilevel spondylolisthesis and degenerative changes as de tailed above, attention to the C5-C6 level where most significant findings are present. 2. Abnormal enhancing soft tissue appears to be encasing the right carotid bulb. Correlate clinically for vasculitis and/or possible neoplasm such as paraganglioma. Follow-up advised.
== END | disposition home or self-care (01) ==
LOC: RADMRIMAIN 17:57
PROVIDERS: ATTEND Internal Medicine Hematology & Oncology
DX: M43.12 Spondylolisthesis, cervical region (principal); M50.31 Other cervical disc degeneration, high cervical region; M79.89 Other specified soft tissue disorders; C90.00 Multiple myeloma not having achieved remission
CPT/HCPCS: 70553; 72156; A9585

== ENCOUNTER → 2019-10-09 | Outpatient (CLI) | payer BC ==
[2019-10-09 11:02] LABS: African American GFR (CKD) >90 (>60 ml/min/1.73 sqM); Blood Urea Nitrogen 12 mg/dL (9-20); Non-African American GFR(CKD) >90 (>60 ml/min/1.73 sqM)
--- NOTE | 2019-10-09 12:59 | CT ---
EXAMINATION TYPE: CT soft tissue neck w con DATE OF EXAM: 10/09/2019 COMPARISON: MRI 10/07/2019 HISTORY: 49-year-old male C90.00, multiple myeloma not having achieved remission. Abnormal MRI TECHNIQUE: Contiguous axial scanning of the soft tissues of the neck performed with IV Contrast, gerardo ent injected with 100 mL of Isovue 300. Coronal/sagittal reconstructions performed. CT DLP: 517.3 mGycm Automated exposure control for dose reduction was used. FINDINGS: There is 2 cm thick soft tissue density partially encasing the right carotid bifurcation correspondin g to abnormal enhancement seen on the 10/07/2019 MRI. However, there is no vessel narrowing or signifi cant enhancement appreciated on CT. Findings are nonspecific. Thyroid gland, submandibular glands appear satisfactory. Parotid glands are mildly atrophic. Nasopharynx is clear. A punctate calcification at each palatine tonsil could reflect sequela of prior infection. Epiglottis and prevertebral soft tissues are satisfactory. Glottic and subglottic structures as well as the tracheal column and visualized upper lungs are clear . No cervical lymphadenopathy identified. Reversal of the normal cervical lordosis. Disc osteophyte complex at C4-C5 causing mild narrowing of the spinal canal. IMPRESSION: 1. REDEMONSTRATED SOFT TISSUE THICKENING SURROUNDING THE RIGHT CAROTID BIFURCATION. ETIOLOGY REMAINS UNCLEAR. THERE IS NO ABNORMAL VESSEL NARROWING. FURTHER CLINICAL CORRELATION IS RECOMMENDED. GIVEN ERIC HILLS'S HISTORY, CONSIDER EXTRAOSSEOUS MYELOMA. LARGE VESSEL VASCULITIS IS AN ADDITIONAL CONSIDERATIO N. THE DEGREE OF ENHANCEMENT MAKES A CAROTID BODY TUMOR/PARAGANGLIOMA LESS LIKELY.
== END | disposition home or self-care (01) ==
LOC: RADCTMAIN 10:11
PROVIDERS: ATTEND Internal Medicine Hematology & Oncology
DX: M79.89 Other specified soft tissue disorders (principal); C90.00 Multiple myeloma not having achieved remission
CPT/HCPCS: 82565; 84520; 70491; 36415; Q9967

== ENCOUNTER → 2019-10-24 | Outpatient (CLI) | payer BC ==
--- NOTE | 2019-10-24 16:06 | PE ---
Nuclear medicine PET/CT HISTORY: Multiple myeloma subsequent Patient received 12.7 mCi F-18 FDG intravenously in delayed scanning was performed for the whole body Correlation to CT abdomen pelvis 07/25/2018 head And neck: No suspicious uptake. No supraclavicular or cervical adenopathy. CHEST: There is no lung mass. No pleural or pericardial effusion. The stomach, axillary, or hilar naren nopathy. No suspicious uptake. ABDOMEN: There is no retroperitoneal adenopathy or ascites. No evident liver mass. No suspicious upta ke. Osseous structures: Multiple lytic lesions are again noted especially in the spine, sternum. No suspi cious uptake however. Vertebral plasty change present within the sixth thoracic vertebral body. Lower extremities show no suspicious uptake. IMPRESSION: No suspicious hypermetabolic uptake. Findings consistent with patient's history of multip le myeloma.
== END | disposition home or self-care (01) ==
LOC: RADPETMAIN 11:47
PROVIDERS: ATTEND Internal Medicine Hematology & Oncology
DX: C90.00 Multiple myeloma not having achieved remission (principal)
CPT/HCPCS: 78815; A9552

== ENCOUNTER → 2019-10-28 | Outpatient (CLI) | payer BC ==
[2019-10-28 19:56] LABS: Total Protein,CSF 45 mg/dL (12-60)
[2019-10-28 20:02] LABS: Appearance,CSF Clear; CSF Tube Number 4; CSF Tube Volume 3; Red Blood Cell,CSF 0 u/L (0-10)
[2019-10-28 20:03] LABS: Nucleated Cells, CSF 0 u/L (0-5)
== END | disposition home or self-care (01) ==
LOC: LABWHC1 07:21
PROVIDERS: ATTEND Nurse Practitioner Family
DX: R90.82 White matter disease, unspecified (principal); R20.8 Other disturbances of skin sensation; H53.8 Other visual disturbances; G35 Multiple sclerosis
CPT/HCPCS: 36415; 82040; 82042; 82784; 83873; 83916; 84157; 87801; 89050

== ENCOUNTER 2020-02-23 11:33 | Inpatient (IN) | payer BC ==
[2020-02-23 12:04] VITALS: RESP 16
[2020-02-23] MEDS ORDERED: SODIUM CHLORIDE 0.9% 1,000 ML IV STA ×2 (12:19)
--- NOTE | 2020-02-23 12:34 | ED ---
General Adult HPI - General Chief complaint: Recheck/Abnormal Lab/Rx Stated complaint: sent from magi Burkett Time Seen by Provider: 02/23/20 11:49 Source: patient, RN notes reviewed, old records reviewed Mode of arrival: wheelchair Limitations: no limitations - History of Present Illness Initial comments: 41-year-old male with history of multiple myeloma presents emergency department stay without normal outpatient labs of hypercalcemia. He reports that his calcium continues to increase despite receiving injections out patiently. Patient reports he did receive a blood transfusion last week as well. His oncologist is Dr. Monzon. He complains of nausea and weakness. - Related Data Home Medications Medication Instructions Recorded Confirmed Loratadine [Claritin] 10 mg PO HS 06/16/18 02/23/20 Aspirin [Adult Low Dose Aspirin EC] 81 mg PO DAILY 07/18/18 02/23/20 Sulfamethox-Tmp 800-160Mg [Bactrim 1 tab PO MOWEFR 07/18/18 02/23/20 DS 800-160 mg] Mirtazapine [Remeron] 15 mg PO HS 07/28/18 02/23/20 HYDROcodone/APAP 7.5-325MG [Crescent 1 tab PO BID PRN 02/09/20 02/23/20 7.5-325] Acyclovir [Zovirax] 400 mg PO BID 02/23/20 02/23/20 Escitalopram [Lexapro] 20 mg PO HS 02/23/20 02/23/20 HYDROmorphone [Dilaudid] 2 mg PO DIRECTED PRN 02/23/20 02/23/20 Pyridoxine HCl (Vitamin B6) 100 mg PO DAILY 02/23/20 02/23/20 [Vitamin B-6] Zolpidem [Ambien] 5 mg PO HS 02/23/20 02/23/20 dexAMETHasone [Dexamethasone] 20 mg PO MO 02/23/20 02/23/20 Allergies Allergy/AdvReac Type Severity Reaction Status Date / Time morphine Allergy Itching Verified 02/23/20 13:36 Review of Systems ROS Statement: Those systems with pertinent positive or pertinent negative responses have been documented in the HPI. ROS Other: All systems not noted in ROS Statement are negative. Past Medical History Past Medical History: Cancer, Hypertension Additional Past Medical History / Comment(s): Never taken hypertensive medication., Multiple Myeloma History of Any Multi-Drug Resistant Organisms: None Reported Past Surgical History: Appendectomy Past Anesthesia/Blood Transfusion Reactions: No Reported Reaction Past Psychological History: No Psychological Hx Reported, Depression Smoking Status: Never smoker Past Alcohol Use History: None Reported Past Drug Use History: None Reported - Past Family History Father Family Medical History: Hypertension General Exam - General Exam Comments Initial Comments: 49-year-old male. No distress. Appears somewhat weak. Limitations: no limitations General appearance: alert, in no apparent distress Head exam: Present: atraumatic, normocephalic, normal inspection, other Eye exam: Present: normal appearance, PERRL, EOMI, other (pale palpebral conjunctiva). Absent: scleral icterus, conjunctival injection, periorbital swelling ENT exam: Present: normal exam, mucous membranes moist Neck exam: Present: normal inspection. Absent: tenderness, meningismus, lymphadenopathy Respiratory exam: Present: normal lung sounds bilaterally. Absent: respiratory distress, wheezes, rales, rhonchi, stridor Cardiovascular Exam: Present: regular rate, normal rhythm, normal heart sounds. Absent: systolic murmur, diastolic murmur, rubs, gallop, clicks GI/Abdominal exam: Present: soft, normal bowel sounds. Absent: distended, tenderness, guarding, rebound, rigid Extremities exam: Present: normal inspection, full ROM, normal capillary refill. Absent: tenderness, pedal edema, joint swelling, calf tenderness Back exam: Present: normal inspection Neurological exam: Present: alert, oriented X3, CN II-XII intact Psychiatric exam: Present: normal affect, normal mood Skin exam: Present: warm, dry, intact, normal color. Absent: rash Course Vital Signs 02/23/20 02/23/20 02/23/20 11:43 12:00 13:40 Temperature 98.0 F Pulse Rate 95 84 Respiratory 18 16 16 Rate Blood Pressure 115/70 108/81 O2 Sat by Pulse 99 98 Oximetry EKG Findings - EKG Comments: EKG Findings:: EKG performed at 1337 shows sinus tachycardia. Ventricular rate of 10 3 bpm. Pulse 154 ms. QRS duration is 90 ms. QTQTC 324/424 ms. Medical Decision Making - Medical Decision Making 49-year-old male multiple myeloma presents with complaints of the lab tests with high calcium. His calcium was 16.2 today. IV established and labs were repeated continues to show calcium 16.2. EKG shows sinus tachycardia no ST changes. Patient complains of nausea and weakness. Is given IV fluids. He was started on I am calcitonin for hypercalcemia. Patient's case was discussed with Dr. Potter who discussed Dr. Savage. Dr. hatfield's where Patient. With concerning acute renal failure also consult nephrology. - Lab Data Result diagrams: 02/23/20 12:33 02/23/20 12:33 Lab Results 02/23/20 02/23/20 Range/Units 12:33 12:33 WBC 2.3 L (3.8-10.6) k/uL RBC 2.22 L (4.30-5.90) m/uL Hgb 7.8 L (13.0-17.5) gm/dL Hct 23.1 L (39.0-53.0) % MCV 104.3 H (80.0-100.0) fL MCH 35.0 (25.0-35.0) pg MCHC 33.5 (31.0-37.0) g/dL RDW 17.9 H (11.5-15.5) % Plt Count 21 L D (150-450) k/uL Neutrophils % 71 % Lymphocytes % 18 % Monocytes % 7 % Eosinophils % 1 % Basophils % 0 % Neutrophils # 1.6 (1.3-7.7) k/uL Lymphocytes # 0.4 L (1.0-4.8) k/uL Monocytes # 0.2 (0-1.0) k/uL Eosinophils # 0.0 (0-0.7) k/uL Basophils # 0.0 (0-0.2) k/uL Anisocytosis Slight Macrocytosis Moderate Sodium 132 L (137-145) mmol/L Potassium 5.4 H (3.5-5.1) mmol/L Chloride 105 (98-107) mmol/L Carbon Dioxide 17 L (22-30) mmol/L Anion Gap 10 mmol/L BUN 46 H (9-20) mg/dL Creatinine 3.86 H (0.66-1.25) mg/dL Est GFR (CKD-EPI)AfAm 20 (>60 ml/min/1.73 sqM) Est GFR (CKD-EPI)NonAf 17 (>60 ml/min/1.73 sqM) Glucose 151 H (74-99) mg/dL Calcium 16.2 H* (8.4-10.2) mg/dL Magnesium 1.5 L (1.6-2.3) mg/dL Total Bilirubin 1.7 H (0.2-1.3) mg/dL AST 53 (17-59) U/L ALT 17 (4-49) U/L Alkaline Phosphatase 81 (38-126) U/L Total Protein 7.0 (6.3-8.2) g/dL Albumin 4.5 (3.5-5.0) g/dL Disposition Clinical Impression: Hypercalcemia, Multiple myeloma, ARF (acute renal failure) Disposition: ADMITTED IP TO THIS HOSP Condition: Stable Is patient prescribed a controlled substance at d/c from ED?: No Referrals: Jackie Pate III, MD [Primary Care Provider] - 1-2 days Time of Disposition: 13:48
[2020-02-23] MEDS: SODIUM CHLORIDE 0.9% 1,000 ML IV SCH ×4 (12:40→22:36)
[2020-02-23 12:49] LABS: Anisocytosis Slight; Basophils % (A) 0 %; Eosinophils % (A) 1 %; HCT 23.1 % (39.0-53.0); HGB 7.8 gm/dL (13.0-17.5); Lymphocytes # (A) 0.4 k/uL (1.0-4.8); Lymphocytes % (A) 18 %; MCHC 33.5 g/dL (31.0-37.0); MCV 104.3 fL (80.0-100.0); Macrocytosis Moderate; Mean Platelet Volume 9.3; Monocytes # (A) 0.2 k/uL (0-1.0); Monocytes % (A) 7 %; Neutrophils # (A) 1.6 k/uL (1.3-7.7); Neutrophils % (A) 71 %; RBC 2.22 m/uL (4.30-5.90); RDW 17.9 % (11.5-15.5); WBC 2.3 k/uL (3.8-10.6)
[2020-02-23 12:55] LABS: Albumin 4.5 g/dL (3.5-5.0); Magnesium 1.5 mg/dL (1.6-2.3); Potassium 5.4 mmol/L (3.5-5.1); Total Bilirubin 1.7 mg/dL (0.2-1.3)
[2020-02-23 13:00] LABS: Platelet Count 21 k/uL (150-450)
[2020-02-23 13:09] LABS: Calcium 16.2 mg/dL (8.4-10.2)
[2020-02-23] MEDS ORDERED: CALCITONIN INJ 200 UNIT/ML (MDV) VIAL IM ONE (13:30)
[2020-02-23] MEDS ORDERED: MORPHINE SULFATE 4 MG/ML SYRINGE IV PRN (13:33)
[2020-02-23] MEDS ORDERED: HYDROmorphone 0.5 MG/0.5 ML SYRINGE IVP PRN (13:33)
[2020-02-23] MEDS ORDERED: IBUPROFEN 400 MG TAB PO PRN (13:33)
[2020-02-23] MEDS ORDERED: ONDANSETRON 4 MG/2 ML VIAL IVP PRN (13:33)
[2020-02-23] MEDS ORDERED: ACETAMINOPHEN TAB 325 MG TAB PO PRN (13:33)
[2020-02-23] MEDS ORDERED: NALOXONE 0.4 MG/ML 1 ML VIAL IV PRN (13:33)
[2020-02-23 17:07] VITALS: BP 117/64; PULSE 112; TEMP 98.7
[2020-02-23] MEDS: MAGNESIUM SULFATE-D5W PMX 1 GM in DEXTROSE/WATER 1 100ML.BAG IVPB SCH ×2 (17:11→18:14)
[2020-02-23] MEDS ORDERED: HYDROcodone/APAP 7.5-325MG 1 EACH TAB PO PRN (19:54)
[2020-02-23] MEDS ORDERED: HYDROmorphone 2 MG TAB PO PRN (19:54)
[2020-02-23] MEDS ORDERED: ESCITALOPRAM 20 MG TAB PO SCH (21:00)
[2020-02-23] MEDS ORDERED: MIRTAZAPINE 15 MG TAB PO SCH (21:00)
[2020-02-23] MEDS ORDERED: ZOLPIDEM 5 MG TAB PO SCH (21:00)
[2020-02-23] MEDS ORDERED: LORATADINE 10 MG TAB PO SCH (21:00)
[2020-02-23] MEDS ORDERED: ACYCLOVIR 200 MG CAP PO SCH (21:00)
[2020-02-23] MEDS ORDERED: FUROSEMIDE 10 MG/ML 4 ML VIAL IV SCH (21:30)
--- NOTE | 2020-02-23 22:26 | P.CONS ---
History of Present Illness - Reason for Consult Consult date: 02/23/20 Multiple Myeloma Requesting physician: Marilee Yan - Chief Complaint Mental Status Changes - History of Present Illness Mr. Arthur is a pleasant 49 white male, initially seen in consult at [facility] on 06/16/2018. He presented with complains of persistent left-sided rib pain that started 6 weeks prior and had progressed in severity and persistence. Pain was ultimately so severe that he could not sleep and was not responding to OTC medication. In the ER imaging revealed the possibility of lytic lesions leading to a CT scan of the chest abdomen and pelvis, as well as identification of elevated calcium level. CBC was normal. CT scans showed lytic lesions in multiple areas including thoracic and lumbar spine, bilateral hips, right iliac bone and rt sixth rib pathologic fracture. No suspicious visceral mass or adenopathy was seen. Additional workup was ordered including labs for multiple myeloma. was performed. This revealed markedly elevated kappa light chain at 2530 mg/L suppression of lambda light chain, and normal immunoglobulins. PTH is markedly reduced. The patient received Zometa for bone lesions, and a bone marrow asp iration biopsy in 06/18/18. During this initial hospital stay he was seen by radiation oncology and started palliative radiation to the left rib cage as an outpatient. - Bone marrow showed 60-70% involvement with kappa Restricted monoclonal plasma cells. He was seen for his first office visit on 07/01/18. He completed radiation on 06/28/18. - Initial treatment RVD on 07/09/18. He missed D 11 of C 1, as he was admitted with fever, chest wall pain, and pain med effects such as constipation and abdo benjamin distension. He did improve and was able to be discharged. - After Cycle 4 he showed a plateauing of response, and was thus changed to kyprolis/Rev/Dex in 10/09/18 - He was seen by I BMT on , and auto BMT was recommended - He had developed a compression fracture at T5, with significant pain. Kyphoplasty was planned, but delayed due to insurance. He ultimately had it in 09/2018. He was advised 1 more cycle, which he completed on 01/15/19, and he then proceeded to auto SCT in 04/10, which he tolerated well. TM 08/11/19: The patient is being evaluated for a clinical trial for maintenance treatment post SCT. However on clinical trials were placed on hold due to the coronavirus epidemic. TM 09/17/19: The patient's case was discussed with [facility]. As clinical trials are still on hold, it was recommended that he start Revlimid maintenance. He was g iven a prescription for the same. 10/06/19-Acute Visit with multiple c/w-xixoy-semcd sore throat, doesn't hurt when he swallows, only hurts when he presses on it. Bilateral Tinnitus, numbness on the right side of his face, having short term memory issues, problems concentrating, general fatigue-rating 3-4/10, sleeping up to 10 hours a day and could still sleep more. Seeing black spots, "lacking light sensitivity", he couldn't see when he came in from outside a few moments. His right arm falls asleep when working and his right wrist is locking up. All of the symptoms started a week or so before starting revlimid (pt just doesn't feel well), persisted and some progressed. Denied fever, injury, newer meds, GI c/o. No other c/o. 10/14/19-Status post follow-up with Neuro, LP planned for 10/29/19. His neuro symptoms persist, slightly progressive. His notes he acts drunk at times (no falling), seems distant, lacks focus/attention, poor comprehension and concentration. MRI of the brain and C-spine during same time as above This showed moderate white matter changes with demyelinating disease a possibility. Incidentally some enhancing soft tissue was seen in relation to the right carotid bulb. CT of the neck showed nonspecific 2 cm soft tissue encasing the right carotid bulb. PET scan, that showed no evidence of any uptake. Stable lytic lesions were seen without any hypermetabolic uptake 11/2019 - Patient's labs unfortunately revealed a major increase in kappa light chain to into the 500 mg/L range, with further increase to 864 mg/L. A week later. M protein remained undetectable. Urine studies and beta-2 microglobulin were also within normal limits. The patient was subsequently seen at the [facility] by Dr. Mc. Case was discussed with him, and it was decided to start treatment for relapsed MM. On 01/05/20 - He started Kyprolis/Dex/Daratumumab During the above the neurological symptoms have waxed and waned, neurology treating for a diagnosis of multiple sclerosis and he was on a long slow steroid taper, symptoms appeared to progress once decreased on steroids. The largest complaint was memory issues, short term, but this is also improved, from before, and stable. Balance seems to be normal. Still sees "black spots" in this field of vision off and on. He did see ophthalmology with no abnormality noted. Fatigue and loss of appetite are significantly more prominent. He has lost about 18 lbs. He reports increased dahiana in his lower and mid back. He still reports episodic cramping pain in his distal upper extremities and calves off and on. He denied any falls or significant headaches. 11/2019 - KFL = 864mg/dL 01/29/20: Seen in follow up: The pt reports increased pain as well as other systemic symptoms as noted. His CBC shows a Hgb of 10, plt 66, and WBC 2.6, with ANC 1.53 KFLC = 366, Calcium 13, Creat 1.8 IV Hydration, calcitonin, lasix 02/04.20 = Repeat Calcium 11. At least some his symptoms could be related to his rapidly progressive MM. In that case, it may take 2-3 cycles to see a response. Repeat labs He is on pain control with Neurology - His MRIs did not show any demyelination in the spinal cord. Multiple white matter brain lesions were again seen, but without progression ( 20+ vs 40-50 previously) - Continue Zometa 02/17/20 = Hemoglobin = 6.8 (transfused portion dilutional), platlets 17K (some eccymosis no signs of bleeding) 02/16/20: Status Post cycle 2, Day 15. Treated again for Hypercalcemia (Hydration, calcitonin, zometa (as srinath), and lasix), repeat labs on 02/23/20 revealed worsening hypercalcemia (symptomatic) = 17.4, Creatinine = 4.8, WBC =2, 7.4 aspirin on hold secondary to platelet count less than 20K Patient brought to Hospital and admitted with IVF, Calcitonin, Lasix 40mg q12, and repeat labs. Concern of rapid progression of Myeloma and potential need of plasma exchange, [facility] was contacted although delay for transfer due to no bed available. Spoke with Hematology team at [facility], as well as Dr. Monzon, plan for transfer for further evaluation of need of plasma exchange plus/minus dialysis tonight. I have spoke with patients Beverly, She stated he is not "mentally" there tonight. She is aware and in agreement with plan to higher level of care. Light chains, repeat CMP, CBC, LDH, Uric Acid, PT, PTT, INR, Ionized Calcium, Magnesium ordered stat tonight and will be sent to accepting physician when resulted. Telemetry monitoring to continue. every 12 hour bloodwork until transfer. Review of Systems ROS unobtainable: due to mental status Past Medical History Past Medical History: Cancer, Hypertension, Pneumonia Additional Past Medical History / Comment(s): 2019 L rib pain/found to have multiple lytic bone lesions/hypercalcemia/diagnosed with multiple myeloma and receives chemo (last chemo 02/23/20)/radiation treatments to ribs/back, normocytic anemia, bicytopenia, protein calorie malnutrition, myopathy, constipation. History of Any Multi-Drug Resistant Organisms: None Reported Past Surgical History: Appendectomy Additional Past Surgical History / Comment(s): Bone marrow aspiration/transplant at [facility] Past Anesthesia/Blood Transfusion Reactions: No Reported Reaction Past Psychological History: No Psychological Hx Reported, Depression Additional Psychological History / Comment(s): Pt resides with his spouse and 3 teenage children. He is independent. No recent travel. No significant tobacco or alcohol use or recreational drug use. 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 Smoking Status: Never smoker Past Alcohol Use History: None Reported Past Drug Use History: None Reported - Past Family History Father Family Medical History: Hypertension Mother Family Medical History: No Reported History Medications and Allergies Home Medications Medication Instructions Recorded Confirmed Type Loratadine [Claritin] 10 mg PO HS 06/16/18 02/23/20 History Aspirin [Adult Low Dose Aspirin EC] 81 mg PO DAILY 07/18/18 02/23/20 History Sulfamethox-Tmp 800-160Mg [Bactrim 1 tab PO MOWEFR 07/18/18 02/23/20 History DS 800-160 mg] Mirtazapine [Remeron] 15 mg PO HS 07/28/18 02/23/20 History HYDROcodone/APAP 7.5-325MG [[place] 1 tab PO BID PRN 02/09/20 02/23/20 History 7.5-325] Acyclovir [Zovirax] 400 mg PO BID 02/23/20 02/23/20 History Escitalopram [Lexapro] 20 mg PO HS 02/23/20 02/23/20 History HYDROmorphone [Dilaudid] 2 mg PO BID PRN 02/23/20 02/23/20 History Pyridoxine HCl (Vitamin B6) 100 mg PO DAILY 02/23/20 02/23/20 History [Vitamin B-6] Zolpidem [Ambien] 5 mg PO HS 02/23/20 02/23/20 History dexAMETHasone [Dexamethasone] 20 mg PO MO 02/23/20 02/23/20 History Allergies Allergy/AdvReac Type Severity Reaction Status Date / Time morphine Allergy Itching Verified 02/23/20 13:36 Physical Exam Vitals: Vital Signs Temp Pulse Pulse Resp BP BP Pulse Ox 02/23/20 17:07 98.7 F 112 H 16 117/64 99 02/23/20 15:05 69 16 116/70 99 02/23/20 13:40 84 16 108/81 98 02/23/20 12:00 16 02/23/20 11:43 98.0 F 95 18 115/70 99 Intake and Output 02/23/20 02/23/20 02/23/20 06:59 14:59 22:59 Other: Weight 74.843 kg 74.843 kg Gen: confused, slow speech, oriented to self and place only, not time Neck: Supple Skin: Ecchymosis Lungs: CTA Bilateral, no increased effort Heart: Tachy, Regular Abdomen: Soft, NDNT Ext: No edema, POsitive pedal Pulses Psych: periods of short emotions, quickly resolves Results CBC & Chem 7: 02/23/20 12:33 02/23/20 12:33 Labs: Abnormal Lab Results - Last 24 Hours (Table) 02/23/20 02/23/20 02/23/20 Range/Units 12:33 12:33 20:32 WBC 2.3 L (3.8-10.6) k/uL RBC 2.22 L (4.30-5.90) m/uL Hgb 7.8 L (13.0-17.5) gm/dL Hct 23.1 L (39.0-53.0) % MCV 104.3 H (80.0-100.0) fL RDW 17.9 H (11.5-15.5) % Plt Count 21 L D (150-450) k/uL Lymphocytes # 0.4 L (1.0-4.8) k/uL Sodium 132 L (137-145) mmol/L Potassium 5.4 H (3.5-5.1) mmol/L Carbon Dioxide 17 L (22-30) mmol/L BUN 46 H (9-20) mg/dL Creatinine 3.86 H (0.66-1.25) mg/dL Glucose 151 H (74-99) mg/dL Calcium 16.2 H* 13.9 H* (8.4-10.2) mg/dL Magnesium 1.5 L (1.6-2.3) mg/dL Total Bilirubin 1.7 H (0.2-1.3) mg/dL Assessment and Plan (1) ARF (acute renal failure) Current Visit: Yes Status: Acute Code(s): N17.9 - ACUTE KIDNEY FAILURE, UNSPECIFIED SNOMED Code(s): 55758589 (2) Hypercalcemia Current Visit: Yes Status: Acute Priority: High Code(s): E83.52 - HYPERCALCEMIA SNOMED Code(s): 99062887 (3) Multiple myeloma Current Visit: Yes Status: Acute Code(s): C90.00 - MULTIPLE MYELOMA NOT HAVING ACHIEVED REMISSION SNOMED Code(s): 882952287 Plan: PLan: Continue current aggressive supportive care in interim to higher level of care at [facility] to the care of Dr. Antonio Luke. Any questions or concerns please do not hesitate to contact us. MARK Edward Time with Patient: Greater than 30
--- NOTE | 2020-02-23 23:59 | P.HPIM ---
History of Present Illness H&P Date: 02/23/20 Chief Complaint: Hypercalcemia Patient is a 49-year-old male with a known history of multiple myeloma diagnosed in May 2018 status post chemotherapy, multiple bone lesions and T5 compression fracture and persistent hypercalcemia was sent to ER due to worsening renal function and hypercalcemia. Patient's creatinine level is 4.8. Patient was admitted to hospital for IV hydration. Was given a dose of calcitonin and Lasix 40 mg every 12. Due to worsening renal function and concern for light chain disposition in to renal tubules patient may require plasmapheresis. EKG showed sinus tachycardia Laboratory data reviewed showed WBC 2.3, hemoglobin 7.8, MCV 104.3, platelets 21 Sodium 132, potassium 5.4, bicarb is 17, BUN 46 and creatinine 3.86Calcium level 16.2 came down to 13.9 and magnesium 1.5 and total bilirubin is 1.7 Coronavirus PCR is negative. Review of Systems Constitutional: Patient denies any fever or chills . generalized weakness and weight loss. Abdomen: Patient denied nausea vomiting and diarrhea and abdominal pain. Cardiovascular: Patient denies any chest pain or short of breath no palpitations. Respiratory: patient denied any cough or sputum production. No shortness of breath Neurologic: Patient denied any numbness or tingling headache. Musculoskeletal: Patient denies any complaints of joint swelling or deformity. Patient does have back pain and rib pain. Skin: Negative Psychiatric: Negative Endocrine: No heat or cold intolerance. No recent weight gain. Genitourinary: No dysuria or hematuria. All other 14 point ROS negative except the above Past Medical History Past Medical History: Cancer, Hypertension Additional Past Medical History / Comment(s): Never taken hypertensive medication., Multiple Myeloma History of Any Multi-Drug Resistant Organisms: None Reported Past Surgical History: Appendectomy Past Anesthesia/Blood Transfusion Reactions: No Reported Reaction Past Psychological History: No Psychological Hx Reported, Depression Smoking Status: Never smoker Past Alcohol Use History: None Reported Past Drug Use History: None Reported - Past Family History Father Family Medical History: Hypertension Mother Family Medical History: No Reported History Medications and Allergies Home Medications Medication Instructions Recorded Confirmed Type Loratadine [Claritin] 10 mg PO HS 06/16/18 02/23/20 History Aspirin [Adult Low Dose Aspirin EC] 81 mg PO DAILY 07/18/18 02/23/20 History Sulfamethox-Tmp 800-160Mg [Bactrim 1 tab PO MOWEFR 07/18/18 02/23/20 History DS 800-160 mg] Mirtazapine [Remeron] 15 mg PO HS 07/28/18 02/23/20 History HYDROcodone/APAP 7.5-325MG [[place] 1 tab PO BID PRN 02/09/20 02/23/20 History 7.5-325] Acyclovir [Zovirax] 400 mg PO BID 02/23/20 02/23/20 History Escitalopram [Lexapro] 20 mg PO HS 02/23/20 02/23/20 History HYDROmorphone [Dilaudid] 2 mg PO BID PRN 02/23/20 02/23/20 History Pyridoxine HCl (Vitamin B6) 100 mg PO DAILY 02/23/20 02/23/20 History [Vitamin B-6] Zolpidem [Ambien] 5 mg PO HS 02/23/20 02/23/20 History dexAMETHasone [Dexamethasone] 20 mg PO MO 02/23/20 02/23/20 History Allergies Allergy/AdvReac Type Severity Reaction Status Date / Time morphine Allergy Itching Verified 02/23/20 13:36 Physical Exam Vitals: Vital Signs Temp Pulse Resp BP Pulse Ox 02/23/20 13:40 84 16 108/81 98 02/23/20 12:00 16 02/23/20 11:43 98.0 F 95 18 115/70 99 Intake and Output 02/23/20 02/23/20 02/23/20 06:59 14:59 22:59 Other: Weight 74.843 kg PHYSICAL EXAMINATION: Patient is lying in the bed comfortably, no acute distress, awake alert and oriented.. HEENT: Normocephalic. Neck is supple. Pupils reactive. Nostrils clear. Oral cavity is moist. Ears reveal no drainage. Neck reveals no JVD, carotid bruits, or thyromegaly. CHEST EXAMINATION: Trachea is central. Symmetrical expansion. Lung lion clear to auscultation and percussion. CARDIAC: Normal S1, S2 with no gallops. No murmurs ABDOMEN: Soft. Bowel sounds normal. No organomegaly. No abdominal bruits. Extremities: reveal no edema. No clubbing or cyanosis Neurologically awake, alert, oriented x3 with well-coordinated movements. No focal deficits noted Skin: No rash or skin lesions. Psychiatric: Coperative. Nonsuicidal Musculoskeletal: No joint swelling or deformity. Normal range of motion. Results CBC & Chem 7: 02/23/20 12:33 02/23/20 12:33 Labs: Abnormal Lab Results - Last 24 Hours (Table) 02/23/20 02/23/20 Range/Units 12:33 12:33 WBC 2.3 L (3.8-10.6) k/uL RBC 2.22 L (4.30-5.90) m/uL Hgb 7.8 L (13.0-17.5) gm/dL Hct 23.1 L (39.0-53.0) % MCV 104.3 H (80.0-100.0) fL RDW 17.9 H (11.5-15.5) % Plt Count 21 L D (150-450) k/uL Lymphocytes # 0.4 L (1.0-4.8) k/uL Sodium 132 L (137-145) mmol/L Potassium 5.4 H (3.5-5.1) mmol/L Carbon Dioxide 17 L (22-30) mmol/L BUN 46 H (9-20) mg/dL Creatinine 3.86 H (0.66-1.25) mg/dL Glucose 151 H (74-99) mg/dL Calcium 16.2 H* (8.4-10.2) mg/dL Magnesium 1.5 L (1.6-2.3) mg/dL Total Bilirubin 1.7 H (0.2-1.3) mg/dL Thrombosis Risk Factor Assmnt - DVT/VTE Prophylaxis DVT/VTE Prophylaxis: Mechanical Prophylaxis ordered Assessment and Plan Assessment: Acute renal failure with concern for light chain deposition Hypercalcemia secondary to multiple myeloma Multiple myeloma status post chemotherapy and bone lesions. Pancytopenia secondary to multiple myeloma and chemotherapy Mild hyperkalemia Hypovolemic hyponatremia Hypomagnesemia DVT prophylaxis with SCDs due to thrombocytopenia Plan: Patient will be continued on IV hydration and was given a dose of calcitonin. Calcium level dropped to 13.9 from 16.2. Replace magnesium. Continue to follow renal function. Nephrology and oncology is on board. Monitor H&H and transfuse if the hemoglobin is less than 7. Continue with supportive care Discussed with the [facility] transfer team for higher level of care including plasmapheresis due to worsening renal function. Continue to follow closely and further recommendations based on clinical course. Prognosis is guarded. Time with Patient: Greater than 30
[2020-02-24] MEDS ORDERED: PANTOPRAZOLE 40 MG/10 ML VIAL IV SCH (09:00)
[2020-02-24] MEDS ORDERED: PYRIDOXINE HCL 100 MG PO SCH (09:00)
[2020-02-24] MEDS ORDERED: ASPIRIN 81 MG PO SCH (09:00)
[2020-02-24] MEDS ORDERED: CALCITONIN INJ 200 UNIT/ML (MDV) VIAL SQ ONE (09:00)
[2020-03-01] MEDS ORDERED: dexAMETHasone 4 MG TAB PO SCH (09:00)
== END 2020-02-23 23:41 | disposition short-term general hospital (02) | DRG 682 ==
LOC: EC 11:33 → 6NMEDSUR 13:33
PROVIDERS: ADMIT Internal Medicine; ATTEND Internal Medicine
DX: N17.9 Acute kidney failure, unspecified (principal); D61.810 Antineoplastic chemotherapy induced pancytopenia; C90.00 Multiple myeloma not having achieved remission; E87.1 Hypo-osmolality and hyponatremia; E83.52 Hypercalcemia; E86.1 Hypovolemia; E83.42 Hypomagnesemia; I10 Essential (primary) hypertension; Z20.828 Contact with and (suspected) exposure to other viral communicable diseases; G35 Multiple sclerosis; E87.5 Hyperkalemia; H93.13 Tinnitus, bilateral; K59.00 Constipation, unspecified; T45.1X5A Adverse effect of antineoplastic and immunosuppressive drugs, initial encounter; Z79.82 Long term (current) use of aspirin; Z82.49 Family history of ischemic heart disease and other diseases of the circulatory system; Z92.3 Personal history of irradiation; Z88.5 Allergy status to narcotic agent
CPT/HCPCS: 36415; 80053; 82310; 83735; 85025; 87635; 93005; 96360; 96372; 99285

== ENCOUNTER 2020-05-12 15:21 | Inpatient (IN) | payer BC ==
[2020-05-12] MEDS ORDERED: ACETAMINOPHEN TAB 500 MG TAB PO STA (16:04)
[2020-05-12] MEDS ORDERED: IBUPROFEN 600 MG TAB PO STA (16:05)
--- NOTE | 2020-05-12 17:00 | XR ---
EXAMINATION TYPE: XR chest 1V portable DATE OF EXAM: 05/12/2020 COMPARISON: 01/23/2019 HISTORY: Pneumonia. Short of breath TECHNIQUE: FINDINGS: There is some coarse interstitial infiltrate in both lung lion. Heart size is normal. The re is no heart failure. There is no pleural effusion. IMPRESSION: There is new bilateral patchy interstitial pneumonia and subsegmental atelectasis compare d to old exam.
[2020-05-12 17:47] LABS: Anisocytosis Slight; Basophils % (A) 0 %; Eosinophils % (A) 0 %; HCT 41.3 % (39.0-53.0); HGB 13.4 gm/dL (13.0-17.5); Lymphocytes # (A) 0.1 k/uL (1.0-4.8); Lymphocytes % (A) 2 %; MCHC 32.4 g/dL (31.0-37.0); MCV 104.8 fL (80.0-100.0); Macrocytosis Marked; Mean Platelet Volume 7.3; Monocytes # (A) 0.4 k/uL (0-1.0); Monocytes % (A) 5 %; Neutrophils # (A) 7.9 k/uL (1.3-7.7); Neutrophils % (A) 92 %; Platelet Count 288 k/uL (150-450); RBC 3.94 m/uL (4.30-5.90); RDW 18.3 % (11.5-15.5); WBC 8.6 k/uL (3.8-10.6)
[2020-05-12 17:52] LABS: Partial Thromboplastin Time 25.6 sec (22.0-30.0); Prothrombin Time 10.4 sec (9.0-12.0)
[2020-05-12 17:53] LABS: ALT 43 U/L (4-49); AST 51 U/L (17-59); African American GFR (CKD) >90 (>60 ml/min/1.73 sqM); Albumin 4.4 g/dL (3.5-5.0); Alkaline Phosphatase 104 U/L (38-126); Anion Gap 10 mmol/L; Blood Urea Nitrogen 11 mg/dL (9-20); Calcium 7.5 mg/dL (8.4-10.2); Carbon Dioxide 21 mmol/L (22-30); Chloride 100 mmol/L (98-107); Glucose 112 mg/dL (74-99); LDH 799 U/L (313-618); Magnesium 1.8 mg/dL (1.6-2.3); Non-African American GFR(CKD) >90 (>60 ml/min/1.73 sqM); Sodium 131 mmol/L (137-145); Total Bilirubin 0.7 mg/dL (0.2-1.3); Total Protein 6.9 g/dL (6.3-8.2)
[2020-05-12 18:05] LABS: C Reactive Protein 133.3 mg/L (<10.0); Potassium 4.3 mmol/L (3.5-5.1)
[2020-05-12 18:22] LABS: D-Dimer 0.8 mg/L FEU (<0.60)
--- NOTE | 2020-05-12 19:00 | ED ---
General Adult HPI - General Chief complaint: Upper Respiratory Infection Stated complaint: Covid symptoms, fever Time Seen by Provider: 05/12/20 15:39 Source: patient, RN notes reviewed Mode of arrival: ambulatory Limitations: no limitations - History of Present Illness Initial comments: 49-year-old male with a past medical history of hypertension, multiple myeloma presents to the emergency room for a chief complaint of fever. Patient states for the past week he has had fevers on and off as well as a cough. He does not have any shortness of breath. Patient reports his whole family is positive for Covid so he suspects this is the case. Patient states he last had chemo a few days ago. This was oral. Patient's oncologist is Dr. Monzon. He has not had any Motrin or Tylenol in the past 6 hours. Patient has no other complaints at this time including shortness of breath, chest pain, abdominal pain, nausea or vomiting, headache, or visual changes. - Related Data Home Medications Medication Instructions Recorded Confirmed Loratadine [Claritin] 10 mg PO HS 06/16/18 02/23/20 Aspirin [Adult Low Dose Aspirin EC] 81 mg PO DAILY 07/18/18 02/23/20 Sulfamethox-Tmp 800-160Mg [Bactrim 1 tab PO MOWEFR 07/18/18 02/23/20 DS 800-160 mg] Mirtazapine [Remeron] 15 mg PO HS 07/28/18 02/23/20 HYDROcodone/APAP 7.5-325MG [[place] 1 tab PO BID PRN 02/09/20 02/23/20 7.5-325] Acyclovir [Zovirax] 400 mg PO BID 02/23/20 02/23/20 Escitalopram [Lexapro] 20 mg PO HS 02/23/20 02/23/20 HYDROmorphone [Dilaudid] 2 mg PO BID PRN 02/23/20 02/23/20 Pyridoxine HCl (Vitamin B6) 100 mg PO DAILY 02/23/20 02/23/20 [Vitamin B-6] Zolpidem [Ambien] 5 mg PO HS 02/23/20 02/23/20 dexAMETHasone [Dexamethasone] 20 mg PO MO 02/23/20 02/23/20 Allergies Allergy/AdvReac Type Severity Reaction Status Date / Time morphine Allergy Itching Verified 05/12/20 15:37 Review of Systems ROS Statement: Those systems with pertinent positive or pertinent negative responses have been documented in the HPI. ROS Other: All systems not noted in ROS Statement are negative. Past Medical History Past Medical History: Cancer, Hypertension Additional Past Medical History / Comment(s): Never taken hypertensive medication., Multiple Myeloma History of Any Multi-Drug Resistant Organisms: None Reported Past Surgical History: Appendectomy Past Anesthesia/Blood Transfusion Reactions: No Reported Reaction Past Psychological History: No Psychological Hx Reported, Depression Smoking Status: Never smoker Past Alcohol Use History: None Reported Past Drug Use History: None Reported - Past Family History Father Family Medical History: Hypertension Mother Family Medical History: No Reported History General Exam Limitations: no limitations General appearance: alert Head exam: Present: atraumatic Eye exam: Present: normal appearance, PERRL, EOMI ENT exam: Present: normal exam, mucous membranes moist Neck exam: Present: normal inspection, full ROM. Absent: tenderness, meningismus, lymphadenopathy Respiratory exam: Present: normal lung sounds bilaterally. Absent: respiratory distress, wheezes, rales, rhonchi, stridor Cardiovascular Exam: Present: regular rate, normal rhythm, normal heart sounds. Absent: systolic murmur, diastolic murmur, rubs, gallop, clicks GI/Abdominal exam: Present: soft, normal bowel sounds. Absent: distended, tenderness, guarding, rebound, rigid Neurological exam: Present: alert Course Vital Signs 05/12/20 05/12/20 15:34 18:19 Temperature 103.1 F H 99.7 F H Pulse Rate 127 H 106 H Respiratory 18 18 Rate Blood Pressure 122/71 133/76 O2 Sat by Pulse 99 96 Oximetry EKG Findings - EKG Comments: EKG Findings:: Sinus tachycardia, ventricular rate 122, VA interval 138, QTC 487 Medical Decision Making - Medical Decision Making Vital signs stable. Reflexive tachycardia noted. Blood pressure is normal. Patient is 96-99% on room air. CBC CMP unremarkable. However, there is is negative. This likely accounts or patient's elevated CRP and LDH. Patient's d- dimer did come back elevated. Given cancer history CT was ordered to rule out PE. CT chest and GI shows no evidence of pulmonary embolism. There are patchy bilateral areas of pulmonary interstitial and airspace infiltrate that is worse in the last computed tomography scan. I did speak with on-call oncologist who did recommend admission. I discussed this with patient. He is agreeable. Patient was given a dose of Rocephin and azithromycin given left shift of neutrophils count. He will be monitored overnight. - Lab Data Result diagrams: 05/12/20 16:50 05/12/20 16:50 Lab Results 05/12/20 05/12/20 05/12/20 Range/Units 16:50 16:50 16:50 WBC 8.6 (3.8-10.6) k/uL RBC 3.94 L (4.30-5.90) m/uL Hgb 13.4 (13.0-17.5) gm/dL Hct 41.3 (39.0-53.0) % MCV 104.8 H (80.0-100.0) fL MCH 34.0 (25.0-35.0) pg MCHC 32.4 (31.0-37.0) g/dL RDW 18.3 H (11.5-15.5) % Plt Count 288 (150-450) k/uL MPV 7.3 Neutrophils % 92 % Lymphocytes % 2 % Monocytes % 5 % Eosinophils % 0 % Basophils % 0 % Neutrophils # 7.9 H (1.3-7.7) k/uL Lymphocytes # 0.1 L (1.0-4.8) k/uL Monocytes # 0.4 (0-1.0) k/uL Eosinophils # 0.0 (0-0.7) k/uL Basophils # 0.0 (0-0.2) k/uL Anisocytosis Slight Macrocytosis Marked A PT 10.4 (9.0-12.0) sec INR 1.0 (<1.2) APTT 25.6 (22.0-30.0) sec D-Dimer 0.80 H (<0.60) mg/L FEU Sodium 131 L (137-145) mmol/L Potassium 4.3 (3.5-5.1) mmol/L Chloride 100 (98-107) mmol/L Carbon Dioxide 21 L (22-30) mmol/L Anion Gap 10 mmol/L BUN 11 (9-20) mg/dL Creatinine 0.87 (0.66-1.25) mg/dL Est GFR (CKD-EPI)AfAm >90 (>60 ml/min/1.73 sqM) Est GFR (CKD-EPI)NonAf >90 (>60 ml/min/1.73 sqM) Glucose 112 H (74-99) mg/dL Plasma Lactic Acid Edgar (0.7-2.0) mmol/L Calcium 7.5 L (8.4-10.2) mg/dL Magnesium 1.8 (1.6-2.3) mg/dL Total Bilirubin 0.7 (0.2-1.3) mg/dL AST 51 (17-59) U/L ALT 43 (4-49) U/L Alkaline Phosphatase 104 (38-126) U/L Lactate Dehydrogenase 799 H (313-618) U/L C-Reactive Protein 133.3 H (<10.0) mg/L Total Protein 6.9 (6.3-8.2) g/dL Albumin 4.4 (3.5-5.0) g/dL Coronavirus (PCR) (Not Detectd) 05/12/20 05/12/20 Range/Units 16:50 16:50 WBC (3.8-10.6) k/uL RBC (4.30-5.90) m/uL Hgb (13.0-17.5) gm/dL Hct (39.0-53.0) % MCV (80.0-100.0) fL MCH (25.0-35.0) pg MCHC (31.0-37.0) g/dL RDW (11.5-15.5) % Plt Count (150-450) k/uL MPV Neutrophils % % Lymphocytes % % Monocytes % % Eosinophils % % Basophils % % Neutrophils # (1.3-7.7) k/uL Lymphocytes # (1.0-4.8) k/uL Monocytes # (0-1.0) k/uL Eosinophils # (0-0.7) k/uL Basophils # (0-0.2) k/uL Anisocytosis Macrocytosis PT (9.0-12.0) sec INR (<1.2) APTT (22.0-30.0) sec D-Dimer (<0.60) mg/L FEU Sodium (137-145) mmol/L Potassium (3.5-5.1) mmol/L Chloride (98-107) mmol/L Carbon Dioxide (22-30) mmol/L Anion Gap mmol/L BUN (9-20) mg/dL Creatinine (0.66-1.25) mg/dL Est GFR (CKD-EPI)AfAm (>60 ml/min/1.73 sqM) Est GFR (CKD-EPI)NonAf (>60 ml/min/1.73 sqM) Glucose (74-99) mg/dL Plasma Lactic Acid Edgar 1.2 (0.7-2.0) mmol/L Calcium (8.4-10.2) mg/dL Magnesium (1.6-2.3) mg/dL Total Bilirubin (0.2-1.3) mg/dL AST (17-59) U/L ALT (4-49) U/L Alkaline Phosphatase (38-126) U/L Lactate Dehydrogenase (313-618) U/L C-Reactive Protein (<10.0) mg/L Total Protein (6.3-8.2) g/dL Albumin (3.5-5.0) g/dL Coronavirus (PCR) Detected A (Not Detectd) Disposition Clinical Impression: COVID-19, Fever, Multiple myeloma Disposition: ADMITTED IP TO THIS HOSP Is patient prescribed a controlled substance at d/c from ED?: No Referrals: Jackie Pate III, MD [Primary Care Provider] - 1-2 days Time of Disposition: 19:00
--- NOTE | 2020-05-12 19:26 | CT ---
EXAMINATION TYPE: CT chest angio for PE DATE OF EXAM: 05/12/2020 COMPARISON: 07/29/2018 HISTORY: Cough, fever, covid+. History of multiple myeloma. CT DLP: 357.1 mGycm Automated exposure control for dose reduction was used. CONTRAST: Performed with IV Contrast, patient injected with 80ml mL of Isovue 370. There are 3-D post processed images. There is patchy bilateral areas of pulmonary interstitial and airspace infiltrate. These are mostly p eripheral. Heart size is normal. There is no pericardial effusion. There is no pleural effusion. There are no hilar masses. There is no mediastinal adenopathy. Thoracic aorta is intact. There is no aneurysm or dissection. The ascending aorta measures 3 cm. There is no evidence of filling defect in the pulmonary arteries. There is vertebroplasty in the uppe r thoracic spine. There is T5 and T4 compression deformities up to 25%. There is some patchy lytic an d sclerotic changes in the T1 vertebral body. The sternum is intact. IMPRESSION: No evidence of pulmonary embolism. There are patchy bilateral areas of pulmonary interstitial and airspace infiltrate that is worse than the last CT scan of 07/29/2018. Lytic and sclerotic changes in the thoracic spine consistent with myeloma also present on old exam.
[2020-05-12] MEDS ORDERED: NALOXONE 0.4 MG/ML 1 ML VIAL IV PRN (19:38)
[2020-05-12] MEDS ORDERED: AZITHROMYCIN 500 MG in SODIUM CHLORIDE 0.9% 250 ML IVPB STA (19:40)
[2020-05-12] MEDS ORDERED: cefTRIAXone IN SWFI 1,000 MG/10 ML SYRINGE IVP STA (19:40)
[2020-05-12] MEDS ORDERED: IBUPROFEN 600 MG TAB PO PRN (19:41)
[2020-05-12] MEDS: SODIUM CHLORIDE 0.9% 1,000 ML IV SCH (20:11)
[2020-05-13] MEDS: ACETAMINOPHEN TAB 500 MG TAB PO PRN ×3 (04:55→17:02)
[2020-05-13] MEDS: SODIUM CHLORIDE 0.9% 1,000 ML IV SCH ×2 (08:54→20:33)
--- NOTE | 2020-05-13 11:48 | P.CNPUL ---
History of Present Illness Consult date: 05/13/20 Reason for consult: pneumonia History of present illness: Or 9-year-old male patient with known history of multiple myeloma presented to the emergency department with symptoms typical of COVID 19 infection.. The patient had fever, as well as on and off cough and the some minimal shortness of breath. The patient was taking Tylenol on outpatient basis. No nausea. No vomiting. No abdominal pain. The patient was having frequent bouts of di arrhea. The diarrhea was going on for almost a week worse over the past 3 days. No signs of any significant dehydration at this point in time. No altered mentation. His symptoms started a week ago. His chest x-ray shows new bilateral patchy interstitial infiltrates consistent with Covid [address] angiogram of the chest was also done and the CAT scan showed resolution of the pulmonary embolism. There was patchy bilateral areas of pulmonary is associated infiltrates and airspace disease in addition to old changes consistent multiple myeloma including lytic and sclerotic changes in the thoracic spine. He confirmed positive for Covid 19 infection. He had a pro-calcitonin level of 0.2. LDH was 799, CRP is 133 and the d-dimer is at 0.80. The patient is currently on oral Decadron. He still having temperature with a T-max of 101.3 this morning and one at 2.1 yesterday evening. Pulse ox is 97% room air oxygen. Review of Systems Constitutional: Reports fatigue, Reports fever, Reports weakness Eyes: denies as per HPI, denies blurred vision, denies bulging eye, denies decreased vision, denies diplopia, denies discharge, denies dry eye, denies irritation, denies itching, denies pain, denies photophobia, denies loss of peripheral vision, denies loss of vision, denies tunnel vision/blind spots Ears, nose, mouth and throat: Reports as per HPI Breasts: absent: as per HPI, gynecomastia Cardiovascular: Reports as per HPI Respiratory: Reports as per HPI Gastrointestinal: Reports as per HPI, Reports diarrhea Genitourinary: Reports as per HPI Musculoskeletal: Reports as per HPI Musculoskeletal: absent: ankle pain, ankle stiffness, ankle swelling Integumentary: Reports as per HPI Neurological: Reports as per HPI, Reports weakness Psychiatric: Reports as per HPI Endocrine: Reports as per HPI, Reports fatigue Hematologic/Lymphatic: Reports as per HPI Allergic/Immunologic: Reports as per HPI Past Medical History Past Medical History: Cancer, Hypertension Additional Past Medical History / Comment(s): Multiple Myeloma, takes oral chemo (last taken 05/10/20) History of Any Multi-Drug Resistant Organisms: None Reported Past Surgical History: Appendectomy Past Anesthesia/Blood Transfusion Reactions: No Reported Reaction Past Psychological History: No Psychological Hx Reported, Depression 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 No experience. No recent travel. No significant tobacco or alcohol use or recreational drug use. 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 No experience. No recent travel. No significant tobacco or alcohol use or recreational drug use. 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 Past Drug Use History: None Reported - Past Family History Father Family Medical History: Hypertension Mother Family Medical History: No Reported History Medications and Allergies Home Medications Medication Instructions Recorded Confirmed Type Sulfamethox-Tmp 800-160Mg [Bactrim 1 tab PO MOWEFR@0900 07/18/18 05/12/20 History DS 800-160 mg] Mirtazapine [Remeron] 15 mg PO HS 07/28/18 05/12/20 History HYDROcodone/APAP 7.5-325MG [[place] 1 tab PO TID PRN 02/09/20 05/12/20 History 7.5-325] Acyclovir [Zovirax] 400 mg PO BID 02/23/20 05/12/20 History Escitalopram [Lexapro] 20 mg PO HS 02/23/20 05/12/20 History HYDROmorphone [Dilaudid] 2 mg PO BID PRN 02/23/20 05/12/20 History Pyridoxine HCl (Vitamin B6) 100 mg PO DAILY 02/23/20 05/12/20 History [Vitamin B-6] Zolpidem [Ambien] 5 - 10 mg PO HS 02/23/20 05/12/20 History dexAMETHasone [Dexamethasone] 40 mg PO MO 02/23/20 05/12/20 History Calcium 1500mg 1,500 mg PO DAILY 05/12/20 05/12/20 History Omeprazole 20 mg PO DAILY 05/12/20 05/12/20 History Venetoclax [Venclexta] 600 mg PO DAILY 05/12/20 05/12/20 History lisinopriL [Zestril] 10 mg PO DAILY 05/12/20 05/12/20 History Allergies Allergy/AdvReac Type Severity Reaction Status Date / Time morphine Allergy Itching Verified 05/12/20 15:37 Physical Exam Vitals: Vital Signs Temp Pulse Pulse Resp BP BP Pulse Ox 05/13/20 09:42 101.3 F H 79 22 127/69 97 05/13/20 08:56 100.8 F H 05/13/20 04:55 102.1 F H 111 H 16 155/93 96 05/13/20 01:50 98.7 F 100 17 121/75 97 05/12/20 20:14 98.5 F 85 16 104/59 98 05/12/20 20:00 98.4 F 77 16 115/68 98 05/12/20 18:19 99.7 F H 106 H 18 133/76 96 05/12/20 15:34 103.1 F H 127 H 18 122/71 99 Intake and Output 05/12/20 05/13/20 05/13/20 22:59 06:59 14:59 Intake Total 200 Balance 200 Intake: Oral 200 Other: Voiding Method Toilet Toilet # Voids 1 Weight 86.183 kg Normal examThe patient appeared well nourished and normally developed. Vital signs as documented. Head exam is unremarkable. No scleral icterus or corneal arcus noted. Neck is without jugular venous distension, thyromegaly, or carotid bruits. Carotid upstrokes are brisk bilaterally. Lungs are clear to auscultation and percussion. Cardiac exam reveals the PMI to be normally sized and situated. Rhythm is regular. First and second heart sounds normal. No murmurs, rubs or gallops. Abdominal exam reveals normal bowel sounds, no masses, no organomegaly and no aortic enlargement. Extremities are nonedematous and both femoral and pe [place] pulses are normal.Examination of the skin revealed no evidence of significant rashes, suspicious appearing nevi or other concerning lesions.Neurologically, the patient is awake and alert and the patient does not have any focal neurological deficit. Cranial nerves are essentially intact. Results - Laboratory Findings CBC and BMP: 05/12/20 16:50 05/12/20 16:50 PT/INR, D-dimer PT 10.4 sec (9.0-12.0) 05/12/20 16:50 INR 1.0 (<1.2) 05/12/20 16:50 D-Dimer 0.80 mg/L FEU (<0.60) H 05/12/20 16:50 Abnormal lab findings: Abnormal Labs 05/12/20 05/12/20 05/12/20 16:50 16:50 16:50 RBC 3.94 L MCV 104.8 H RDW 18.3 H Neutrophils # 7.9 H Lymphocytes # 0.1 L Macrocytosis Marked A D-Dimer 0.80 H Sodium 131 L Carbon Dioxide 21 L Glucose 112 H Calcium 7.5 L Ferritin 1878.0 H Lactate Dehydrogenase 799 H C-Reactive Protein 133.3 H Procalcitonin Coronavirus (PCR) 05/12/20 05/12/20 16:50 16:50 RBC MCV RDW Neutrophils # Lymphocytes # Macrocytosis D-Dimer Sodium Carbon Dioxide Glucose Calcium Ferritin Lactate Dehydrogenase C-Reactive Protein Procalcitonin 0.20 H Coronavirus (PCR) Detected A - Diagnostic Findings Chest x-ray: image reviewed CT scan - chest: image reviewed Assessment and Plan Plan: 1 acute Covid 19 related infection with mild pneumonia. The patient started sanchez ving symptoms approximately a week ago. He was essentially having diarrhea and he is well hydrated for now. He still having episodes of fever. Chest x-ray was reviewed and the CAT scan of the chest was reviewed and there is some vague limited groundglass bilateral pulmonary changes consistent with pneumonia. Nevertheless, the patient is a pulse ox of 97% of oxygen. The patient was taken a total of 40 mg of Decadron outpatient basis every week in combination with his myeloma medication. 2 multiple myeloma 3 fever 4 mild elevation of inflammatory markers secondary to the viral infection Plan I interviewed the patient. I think the patient is was resuscitated for now. The patient is receiving IV fluids. He is tolerating his liquid and fluid intake and the patient's diarrhea has subsided. In terms of Remdesivir as the patient does not have any oxygen desaturation and pulse ox is 97% room air. I would suggest utilizing Decadron 6 mg by mouth daily for the next 10 days and then going back to his usual dose of Decadron. He would have been an ideal candidate for: Antibodies however his out of the window for that and the patient is currently inpatient which essentially this qualifies him for monoclonal antibodies. As such, we'll continue Decadron. Possible discharge within next 24 hours if his condition remains stable. Monitor fever. Give Tylenol. He is a usual vitamin C and vitamin D and melatonin Pepcid in addition to zinc regarding treatment of Covid 19 infection.
[2020-05-13] MEDS: ZINC SULFATE 220 MG CAP PO SCH (12:14)
[2020-05-13] MEDS: dexAMETHasone 2 MG TAB PO SCH (12:14)
[2020-05-13] MEDS: ASCORBIC ACID 500 MG TAB PO SCH (12:14)
--- NOTE | 2020-05-13 19:29 | P.CONS ---
History of Present Illness - Reason for Consult Consult date: 05/13/20 Coid-treatment for MM Requesting physician: Jordin Griffiths - Chief Complaint covid positive - History of Present Illness Mr. Arthur is a pleasant male pt of Dr. Monzon initially seen in consult at [facility] 06/16/18. He presented with complains of pers istent left-sided rib pain that started 6 weeks prior, progressed in severity and persistence. Pain was ultimately so severe that he could not sleep and was not responding to OTC medication. Imaging revealed the possibility of lytic lesions leading to a CT CAP, labs revealed elevated calcium level. CT scans showed lytic lesions in multiple areas including thoracic and lumbar spine, bilateral hips, right iliac bone and rt sixth rib pathologic fracture. No suspicious visceral mass or adenopathy was seen. Myeloma work up revealed markedly elevated kappa light chain at 2530 mg/L suppression of lambda light chain, and normal immunoglobulins, PTH was markedly reduced. Zometa given for bone lesions. Bone marrow 04/17/19, showed 60-70% involvement with kappa Restricted monoclonal plasma cells. Received palliative radiation to the left rib cage as an outpatient. Completed radiation on 06/28/18. Started RVD on 07/09/18. He had a plateau of response after C 4, and was changed to kyprolis/ Rev/Dex in 10/09. He was seen by [facility]MT on 12/13/18. He had developed a compression fracture at T5, with significant pain, kyphoplasty 10/09. He proceeded to auto SCT 04/10. He was to start revlimid maintenance but, delayed this himself, finally starting early September 2019. He presented shortly after starting Rev with some strange neuro symptoms and behavior changes. Referred to Neuro. MRI of the brain and C-spine showed moderate white matter changes with demyelinating disease a possibility. Incidentally, some enhancing soft tissue was seen in relation to the right carotid bulb. CT of the neck showed nonspecific 2 cm soft tissue encasing the right carotid bulb. PET showed no evidence of any uptake. Stable lytic lesions were seen without any hypermetabolic uptake. His labs in early 12/10 showed a major increase in kappa light chain to into the 500 mg/L range, with further increase to 864 mg/L. A week later. M protein remained undetectable. Urine studies and beta-2 microglobulin were also within normal limits. Seen at the [facility] and it was decided to start treatment for relapsed MM. He started Kyprolis/Dex/Daratumumab on 01/05/20. Labs 02/23/20 showed progressive increase in calcium into the 16 range, acute kidney injury and ongoing progression of light chains. The patient was admitted to the hospital and then transferred to [facility] to be treated with plasmapheresis. He received 1 cycle of CyBorD and was then started on Venetoclax as he was 11:14 positive. Venetoclax dose was increased to 600 mg/d from 03/14/20, and weekly Dex 40 mg, was added. Admitted with covlorrie, family has it, 2-3 days ago symptoms of diarrhea and fever started. No SOB, pulse ox adequate. Last venclexta was Tue. No other physical c/o. 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 No experience. No recent travel. No significant tobacco or alcohol use or recreational drug use. 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 No experience. No recent travel. No significant tobacco or alcohol use or recreational drug use. 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 Past Drug Use History: None Reported - Past Family History Father Family Medical History: Hypertension Mother Family Medical History: No Reported History Medications and Allergies Home Medications Medication Instructions Recorded Confirmed Type Sulfamethox-Tmp 800-160Mg [Bactrim 1 tab PO MOWEFR@0900 07/18/18 05/12/20 History DS 800-160 mg] Mirtazapine [Remeron] 15 mg PO HS 07/28/18 05/12/20 History HYDROcodone/APAP 7.5-325MG [[place] 1 tab PO TID PRN 02/09/20 05/12/20 History 7.5-325] Acyclovir [Zovirax] 400 mg PO BID 02/23/20 05/12/20 History Escitalopram [Lexapro] 20 mg PO HS 02/23/20 05/12/20 History HYDROmorphone [Dilaudid] 2 mg PO BID PRN 02/23/20 05/12/20 History Pyridoxine HCl (Vitamin B6) 100 mg PO DAILY 02/23/20 05/12/20 History [Vitamin B-6] Zolpidem [Ambien] 5 - 10 mg PO HS 02/23/20 05/12/20 History dexAMETHasone [Dexamethasone] 40 mg PO MO 02/23/20 05/12/20 History Calcium 1500mg 1,500 mg PO DAILY 05/12/20 05/12/20 History Omeprazole 20 mg PO DAILY 05/12/20 05/12/20 History Venetoclax [Venclexta] 600 mg PO DAILY 05/12/20 05/12/20 History lisinopriL [Zestril] 10 mg PO DAILY 05/12/20 05/12/20 History Allergies Allergy/AdvReac Type Severity Reaction Status Date / Time morphine Allergy Itching Verified 05/12/20 15:37 Physical Exam Vitals: Vital Signs Temp Pulse Pulse Resp BP BP Pulse Ox 05/13/20 14:04 100.3 F H 94 18 118/73 96 05/13/20 11:52 100.5 F H 05/13/20 09:42 101.3 F H 79 22 127/69 97 05/13/20 08:56 100.8 F H 05/13/20 04:55 102.1 F H 111 H 16 155/93 96 05/13/20 01:50 98.7 F 100 17 121/75 97 05/12/20 20:14 98.5 F 85 16 104/59 98 05/12/20 20:00 98.4 F 77 16 115/68 98 05/12/20 18:19 99.7 F H 106 H 18 133/76 96 05/12/20 15:34 103.1 F H 127 H 18 122/71 99 Intake and Output 05/13/20 05/13/20 05/13/20 06:59 14:59 22:59 Intake Total 200 Balance 200 Intake: Oral 200 Other: Voiding Method Toilet # Voids 1 - Constitutional General appearance: average body habitus, cooperative, no acute distress - EENT Eyes: anicteric sclerae, EOMI ENT: hearing grossly normal, normal oropharynx - Neck Neck: no lymphadenopathy - Respiratory Respiratory: bilateral: CTA - Cardiovascular Rhythm: regular Heart sounds: normal: S1, S2 Abnormal Heart Sounds: no systolic murmur, no diastolic murmur, no rub, no S3 Gallop, no S4 Gallop, no click, no other leg Peripheral Edema: bilateral: None - Gastrointestinal General gastrointestinal: no absent bowel sounds, no decreased bowel sounds, no distended, no hepatomegaly, no hyperactive bowel sounds, normal bowel sounds, no organomegaly, no rigid, no scaphoid, soft, no splenomegaly, no tenderness, no umbilical hernia, no ventral hernia - Neurologic Neurologic: CNII-XII intact - Musculoskeletal Musculoskeletal: strength equal bilaterally - Psychiatric Psychiatric: A&O x's 3, appropriate affect, intact judgment & insight Results CBC & Chem 7: 05/12/20 16:50 05/12/20 16:50 Labs: Abnormal Lab Results - Last 24 Hours (Table) 05/12/20 05/12/20 05/12/20 Range/Units 16:50 16:50 16:50 RBC 3.94 L (4.30-5.90) m/uL MCV 104.8 H (80.0-100.0) fL RDW 18.3 H (11.5-15.5) % Neutrophils # 7.9 H (1.3-7.7) k/uL Lymphocytes # 0.1 L (1.0-4.8) k/uL Macrocytosis Marked A D-Dimer 0.80 H (<0.60) mg/L FEU Sodium 131 L (137-145) mmol/L Carbon Dioxide 21 L (22-30) mmol/L Glucose 112 H (74-99) mg/dL Calcium 7.5 L (8.4-10.2) mg/dL Ferritin 1878.0 H (22.0-322.0) ng/mL Lactate Dehydrogenase 799 H (313-618) U/L C-Reactive Protein 133.3 H (<10.0) mg/L Procalcitonin (0.02-0.09) ng/mL Coronavirus (PCR) (Not Detectd) 05/12/20 05/12/20 Range/Units 16:50 16:50 RBC (4.30-5.90) m/uL MCV (80.0-100.0) fL RDW (11.5-15.5) % Neutrophils # (1.3-7.7) k/uL Lymphocytes # (1.0-4.8) k/uL Macrocytosis D-Dimer (<0.60) mg/L FEU Sodium (137-145) mmol/L Carbon Dioxide (22-30) mmol/L Glucose (74-99) mg/dL Calcium (8.4-10.2) mg/dL Ferritin (22.0-322.0) ng/mL Lactate Dehydrogenase (313-618) U/L C-Reactive Protein (<10.0) mg/L Procalcitonin 0.20 H (0.02-0.09) ng/mL Coronavirus (PCR) Detected A (Not Detectd) Chest x-ray: report reviewed CT scan - chest: report reviewed Assessment and Plan (1) COVID-19 Narrative/Plan: Treatment per guidelines. Best supportive care Current Visit: Yes Status: Acute Priority: High Code(s): U07.1 - COVID-19 SNOMED Code(s): 339636977 (2) Fever Narrative/Plan: 2/2 covid Current Visit: Yes Status: Acute Priority: High Code(s): R50.9 - FEVER, UNSPECIFIED SNOMED Code(s): 631400734 (3) Multiple myeloma Narrative/Plan: Hold all myeloma medications. Check immunoglobulin levels-if IgG low, pt may benefit from IVIG Monitor CBC Current Visit: Yes Status: Chronic Priority: High Code(s): C90.00 - MULTIPLE MYELOMA NOT HAVING ACHIEVED REMISSION SNOMED Code(s): 891272224 Plan: Doctor attests: I performed a history and physical examination of this patient, developed impression and plan of care. Discussed with dictator. I agree with dictators note, documented as a scribe.
[2020-05-13] MEDS: MELATONIN 5 MG TABLET PO SCH (20:33)
[2020-05-13] MEDS: FAMOTIDINE 20 MG TAB PO SCH (20:33)
[2020-05-13] MEDS: ENOXAPARIN 40 MG/0.4 ML SYRINGE SQ SCH (22:26)
[2020-05-13] MEDS: AZITHROMYCIN 250 MG TAB PO SCH (22:26)
--- NOTE | 2020-05-13 22:55 | P.HPIM ---
History of Present Illness H&P Date: 05/13/20 Chief Complaint: Diarrhea Patient is a 49-year-old male with a known history of multiple myeloma currently chemotherapy, hypertension presents to ER with the complaints of fever and shortness of breath along with diarrhea for the past 1 week. Patient states that he also lost taste and smell sensation during this time. Shortness of breath is minimal with on and off cough. Patient has been febrile. Patient states that his family numbers have been sick as well. Due to worsening symptoms of diarrhea and shortness of breath patient presents to ER for evaluation. Chest x-ray showed there is new bilateral patchy interstitial pneumonia and subsegmental atelectasis compared to old exam. CT angiogram of the chest showed no evidence of PE. There are patchy bilateral areas of pulmonary interstitial and airspace infiltrate that is worse than the last CT scan of 07/29/2018 Lytic and sclerotic changes in the thoracic spine consistent with myeloma also present on oral exam. EKG showed sinus tachycardia Patient was tachycardic on T-max of 103.1 on admission. Pulse ox is 96% on room air. Review of Systems Constitutional:+ fever no chills . generalized weakness. no weight loss. Abdomen: Patient denied nausea vomiting + diarrhea no abdominal pain. Cardiovascular: Patient denies any chest pain or short of breath no palpitations. Respiratory: patient denied any cough or sputum production. No shortness of breath Neurologic: Patient denied any numbness or tingling headache. Musculoskeletal: Patient denies any complaints of joint swelling or deformity. Skin: Negative Psychiatric: Negative Endocrine: No heat or cold intolerance. No recent weight gain. Genitourinary: No dysuria or hematuria. 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 No recent travel. No significant tobacco or alcohol use or recreational drug use. 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 No experience. No recent travel. No significant tobacco or alcohol use or recreational drug use. 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 Past Drug Use History: None Reported - Past Family History Father Family Medical History: Hypertension Mother Family Medical History: No Reported History Medications and Allergies Home Medications Medication Instructions Recorded Confirmed Type Sulfamethox-Tmp 800-160Mg [Bactrim 1 tab PO MOWEFR@0900 07/18/18 05/12/20 History DS 800-160 mg] Mirtazapine [Remeron] 15 mg PO HS 07/28/18 05/12/20 History HYDROcodone/APAP 7.5-325MG [[place] 1 tab PO TID PRN 02/09/20 05/12/20 History 7.5-325] Acyclovir [Zovirax] 400 mg PO BID 02/23/20 05/12/20 History Escitalopram [Lexapro] 20 mg PO HS 02/23/20 05/12/20 History HYDROmorphone [Dilaudid] 2 mg PO BID PRN 02/23/20 05/12/20 History Pyridoxine HCl (Vitamin B6) 100 mg PO DAILY 02/23/20 05/12/20 History [Vitamin B-6] Zolpidem [Ambien] 5 - 10 mg PO HS 02/23/20 05/12/20 History dexAMETHasone [Dexamethasone] 40 mg PO MO 02/23/20 05/12/20 History Calcium 1500mg 1,500 mg PO DAILY 05/12/20 05/12/20 History Omeprazole 20 mg PO DAILY 05/12/20 05/12/20 History Venetoclax [Venclexta] 600 mg PO DAILY 05/12/20 05/12/20 History lisinopriL [Zestril] 10 mg PO DAILY 05/12/20 05/12/20 History Allergies Allergy/AdvReac Type Severity Reaction Status Date / Time morphine Allergy Itching Verified 05/12/20 15:37 Physical Exam Vitals: Vital Signs Temp Pulse Pulse Resp BP BP Pulse Ox 05/13/20 14:04 100.3 F H 94 18 118/73 96 05/13/20 11:52 100.5 F H 05/13/20 09:42 101.3 F H 79 22 127/69 97 05/13/20 08:56 100.8 F H 05/13/20 04:55 102.1 F H 111 H 16 155/93 96 05/13/20 01:50 98.7 F 100 17 121/75 97 05/12/20 20:14 98.5 F 85 16 104/59 98 05/12/20 20:00 98.4 F 77 16 115/68 98 05/12/20 18:19 99.7 F H 106 H 18 133/76 96 Intake and Output 05/13/20 05/13/20 05/13/20 06:59 14:59 22:59 Intake Total 200 Balance 200 Intake: Oral 200 Other: Voiding Method Toilet # Voids 1 PHYSICAL EXAMINATION: Patient is lying in the bed comfortably, no acute distress, awake alert and oriented.. HEENT: Normocephalic. Neck is supple. Pupils reactive. Nostrils clear. Oral cavity is moist. Ears reveal no drainage. Neck reveals no JVD, carotid bruits, or thyromegaly. CHEST EXAMINATION: Trachea is central. Symmetrical expansion. Lung lion clear to auscultation and percussion. CARDIAC: Normal S1, S2 with no gallops. No murmurs ABDOMEN: Soft. Bowel sounds normal. No organomegaly. No abdominal bruits. Extremities: reveal no edema. No clubbing or cyanosis Neurologically awake, alert, oriented x3 with well-coordinated movements. No focal deficits noted Skin: No rash or skin lesions. Psychiatric: Coperative. Nonsuicidal Musculoskeletal: No joint swelling or deformity. Normal range of motion. Results CBC & Chem 7: 05/12/20 16:50 05/12/20 16:50 Labs: Abnormal Lab Results - Last 24 Hours (Table) 05/12/20 05/12/20 05/12/20 Range/Units 16:50 16:50 16:50 RBC 3.94 L (4.30-5.90) m/uL MCV 104.8 H (80.0-100.0) fL RDW 18.3 H (11.5-15.5) % Neutrophils # 7.9 H (1.3-7.7) k/uL Lymphocytes # 0.1 L (1.0-4.8) k/uL Macrocytosis Marked A D-Dimer 0.80 H (<0.60) mg/L FEU Sodium 131 L (137-145) mmol/L Carbon Dioxide 21 L (22-30) mmol/L Glucose 112 H (74-99) mg/dL Calcium 7.5 L (8.4-10.2) mg/dL Ferritin 1878.0 H (22.0-322.0) ng/mL Lactate Dehydrogenase 799 H (313-618) U/L C-Reactive Protein 133.3 H (<10.0) mg/L Procalcitonin (0.02-0.09) ng/mL Coronavirus (PCR) (Not Detectd) 05/12/20 05/12/20 Range/Units 16:50 16:50 RBC (4.30-5.90) m/uL MCV (80.0-100.0) fL RDW (11.5-15.5) % Neutrophils # (1.3-7.7) k/uL Lymphocytes # (1.0-4.8) k/uL Macrocytosis D-Dimer (<0.60) mg/L FEU Sodium (137-145) mmol/L Carbon Dioxide (22-30) mmol/L Glucose (74-99) mg/dL Calcium (8.4-10.2) mg/dL Ferritin (22.0-322.0) ng/mL Lactate Dehydrogenase (313-618) U/L C-Reactive Protein (<10.0) mg/L Procalcitonin 0.20 H (0.02-0.09) ng/mL Coronavirus (PCR) Detected A (Not Detectd) Thrombosis Risk Factor Assmnt - DVT/VTE Prophylaxis DVT/VTE Prophylaxis: Pharmacologic Prophylaxis ordered - Choose All That Apply Each Factor Represents 1 point: Obesity (BMI >25) Thrombosis Risk Factor Assessment Total Risk Factor Score: 1 Thrombosis Risk Factor Assessment Level: Low Risk Assessment and Plan Assessment: Acute COVID-19 pneumonia Acute diarrhea, fever, loss of taste and smell x1 week due to COVID-19 infection Multiple myeloma with metastatic lesions in the spine. Currently chemotherapy at home. Last taken 05/10/2020 Macrocytosis secondary to chemotherapy Hypertension DVT Proph with lovenox Plan: Patient will be continued on IV hydration and symptomatic management. Continued multivitamins, zinc sulfate and anticoagulation with Lovenox. Pulmonary is on board. Continue with droplet and contact precautions. Time with Patient: Greater than 30
--- NOTE | 2020-05-13 23:02 | CONS ---
CONSULTATION DATE OF SERVICE: 05/13/2020 REASON FOR CONSULTATION: COVID-19 infection. HISTORY OF PRESENT ILLNESS: The patient is a 49-year-old male with a past medical history significant for hypertension and multiple myeloma. His last chemo was a few days ago. This patient presented to the hospital with fever off and on for the last one week as well as cough. The patient does have multiple family members who have positive COVID and he was suspected to have a COVID infection. The patient denies having any headache. Denies having any chest pain, shortness of breath. Cough has been mild to moderate in intensity, not bringing up any sputum. Denies having any nausea. No vomiting. No abdominal pain or diarrhea. With these symptoms, the patient presented to the hospital. On arrival in the ER the patient did have a fever of 103 degrees Fahrenheit. The patient was not tachycardic and has been saturating 96% to 98% on room air. The patient did have a normal white count with lymphopenia. D-dimer was 0.80. Creatinine was normal. Ferritin was elevated as well as CRP. Liver enzymes are normal. Procalcitonin was elevated at 0.20. The patient did have a chest x-ray which shows new patchy bilateral interstitial pneumonia. CT angiogram of the chest was negative for PE and there was noted some patchy bilateral areas of infiltrate. The patient did receive a dose of Rocephin and Zithromax in the ER. Subsequently he has been admitted to hospital. The patient was started on dexamethasone, zinc, ascorbic acid. Infectious Disease was consulted for further management. REVIEW OF SYSTEMS: Positive points have been mentioned in HPI. Rest of the systems are negative. PAST MEDICAL HISTORY: Multiple myeloma and hypertension. PAST SURGICAL HISTORY: Appendectomy, biopsy. SOCIAL HISTORY: Denies smoking, drinking and drug use. FAMILY HISTORY: Father with history of hypertension. ALLERGIES: MORPHINE. MEDICATIONS: The patient is currently on Tylenol, vitamin C, dexamethasone, Tums, Motrin, Lanoxin, IV fluid and zinc sulfate. PHYSICAL EXAMINATION: Blood pressure 133/79, pulse 89, temperature 99.6, T-max 103. He is 99% on room air. General description is a middle-aged male lying in bed in no distress. No tachypnea or accessory muscle of respiration use. HEENT: Examination shows no pallor or scleral icterus. Oral mucous membrane is dry. No pharyngeal erythema or thrush. NECK: Trachea is central. No thyromegaly. LUNGS: Unlabored breathing. Clear to auscultation anteriorly. HEART: S1, S2. Regular rate and rhythm. ABDOMEN: Soft. No tenderness. No guarding or rigidity. EXTREMITIES: No edema of the feet. SKIN EXAMINATION: No rash or mass palpable. Neurologically the patient is awake, alert, oriented x3. Mood and affect normal. LABS: Hemoglobin is 13.4, white count 8.6, BUN of 11, creatinine 0.87. D-dimer is 0.80. Ferritin was elevated as well as LDH and CRP. Dennis PCR was detected. Chest x-ray and CT report as mentioned above. DIAGNOSTIC IMPRESSION AND PLAN: Patient presented to hospital with fever and cough, symptoms going on for about a week in this patient who did have evidence of bilateral infiltrate suggestive of acute viral pneumonia. The patient currently has been maintaining his saturations above 94% on room air, and no evidence of any respiratory distress. The patient would have been an ideal candidate for IV antibiotic infusion in the outpatient setting; however, admission to the hospital has complicated this, as we are not able to infuse those antibiotics inpatient, and the patient currently does not qualify for remdesivir on the basis of no hypoxemia. PLAN: 1. We will keep the patient on dexamethasone, zinc, ascorbic acid. I will add Lovenox 40 mg daily. 2. Will also elevated procalcitonin. 3. Droplet isolation. 4. Respiratory support. 5. Will follow clinical condition and culture to further adjust medication if needed. Thank you for this consultation. Will follow this patient along with you. MMODL / IJN: [id number] /
[2020-05-14] MEDS: ACETAMINOPHEN TAB 500 MG TAB PO PRN ×2 (01:01→14:48)
[2020-05-14] MEDS: FAMOTIDINE 20 MG TAB PO SCH ×2 (08:40→21:38)
[2020-05-14] MEDS: ASCORBIC ACID 500 MG TAB PO SCH (08:40)
[2020-05-14] MEDS: ZINC SULFATE 220 MG CAP PO SCH (08:40)
[2020-05-14] MEDS: dexAMETHasone 2 MG TAB PO SCH (08:40)
[2020-05-14] MEDS: AZITHROMYCIN 250 MG TAB PO SCH (08:40)
[2020-05-14] MEDS: ENOXAPARIN 40 MG/0.4 ML SYRINGE SQ SCH (08:40)
[2020-05-14 11:05] LABS: Immunoglobulin A <25.5 mg/dL (60.0-350.0); Immunoglobulin M <16.9 mg/dL (40.0-280.0)
[2020-05-14 11:31] LABS: C Reactive Protein 17.4 mg/dL (0.0-0.8); Ferritin 2081.2 ng/mL (22.0-322.0)
--- NOTE | 2020-05-14 14:13 | P.PN ---
Subjective Progress Note Date: 05/14/20 Principal diagnosis: Acute COVID 19 related pneumonitis 49-year-old male patient with known history of multiple myeloma presented to the emergency department with symptoms typical of COVID 19 infection.. The patient had fever, as well as on and off cough and the some minimal shortness of breath. The patient was taking Tylenol on outpatient basis. No nausea. No vomiting. No abdominal pain. The patient was having frequent bouts of diarrhea. The diarrhea was going on for almost a week worse over the past 3 days. No signs of any significant dehydration at this point in time. No altered mentation. His symptoms started a week ago. His chest x-ray shows new bilateral patchy interstitial infiltrates consistent with Covid [address] angiogram of the chest was also done and the CAT scan showed resolution of the pulmonary embolism. There was patchy bilateral areas of pulmonary is associated infiltrates and airspace disease in addition to old changes consistent multiple myeloma including lytic and sclerotic changes in the thoracic spine. He confi rmed positive for Covid 19 infection. He had a pro-calcitonin level of 0.2. LDH was 799, CRP is 133 and the d-dimer is at 0.80. The patient is currently on oral Decadron. He still having temperature with a T-max of 101.3 this morning and one at 2.1 yesterday evening. Pulse ox is 97% room air oxygen. On 05/14/2020 patient seen in follow-up on medical floor, he appears to be in no acute distress, continues to be febrile, with a T-max of 103.1F, he is on room air, his breathing appears to be comfortable, occasional cough, vital signs have been stable, he continues on oral Decadron 6 mg daily, he is on azithromycin 250 mg daily in addition to Pepcid, vitamins, in prophylactic doses of Lovenox 40 mg daily. D-dimer is 0.81, his ferritin level has trended up to 2081, LDH and CRP have significantly improved and are down to 258 and 17.4 respectively. Urine Legionella antigen is negative. ProCalcitonin level was 0.20. ID service is following. Objective - Vital Signs Vital signs: Vital Signs Temp 98.0 F 05/14/20 10:00 Pulse 81 05/14/20 10:00 Resp 16 05/14/20 10:00 BP 112/70 05/14/20 10:00 Pulse Ox 99 05/14/20 10:00 Intake & Output 05/13/20 05/14/20 05/14/20 18:59 06:59 18:59 Intake Total 1100 Balance 1100 Intake: Intake, IV Titration 900 Amount Sodium Chloride 0.9% 1, 900 000 ml @ 75 mls/hr IV . [id number] [facility] Rx#:[id number] Oral 200 Other: Voiding Method Toilet Toilet # Voids 4 4 - Exam GENERAL EXAM: Alert, very pleasant, 49-year-old white male, on room air with a pulse ox of 99% comfortable in no apparent distress. HEAD: Normocephalic/atraumatic. EYES: Normal reaction of pupils, equal size. Conjunctiva pink, sclera white. NOSE: Clear with pink turbinates. THROAT: No erythema or exudates. NECK: No masses, no JVD, no thyroid enlargement, no adenopathy. CHEST: No chest wall deformity. Symmetrical expansion. LUNGS: Equal air entry with no crackles, wheeze, rhonchi or dullness. CVS: Regular rate and rhythm, normal S1 and S2, no gallops, no murmurs, no rubs ABDOMEN: Soft, nontender. No hepatosplenomegaly, normal bowel sounds, no guarding or rigidity. EXTREMITIES: No clubbing, no edema, no cyanosis, 2+ pulses and upper and lower extremities. MUSCULOSKELETAL: Muscle strength and tone normal. SPINE: No scoliosis or deformity SKIN: No rashes CENTRAL NERVOUS SYSTEM: Alert and oriented -3. No focal deficits, tone is normal in all 4 extremities. PSYCHIATRIC: Alert and oriented -3. Appropriate affect. Intact judgment and insight. - Labs CBC & Chem 7: 05/12/20 16:50 05/12/20 16:50 Labs: Abnormal Lab Results - Last 24 Hours (Table) 05/13/20 05/14/20 05/14/20 Range/Units 10:21 06:10 06:10 D-Dimer 0.81 H (<0.60) mg/L FEU Ferritin 2081.2 H (22.0-322.0) ng/mL Lactate Dehydrogenase 258 H (120-246) U/L C-Reactive Protein 17.4 H (0.0-0.8) mg/dL IgG 147.0 L (700.0-1600.0) mg/dL IgA <25.5 L (60.0-350.0) mg/dL IgM <16.9 L (40.0-280.0) mg/dL Microbiology - Last 24 Hours (Table) 05/12/20 16:55 Blood Culture - Preliminary Blood No Growth after 24 hours 05/12/20 16:55 Blood Culture - Preliminary Blood No Growth after 24 hours Assessment and Plan Plan: Assessment: 1 acute Covid 19 related infection with mild pneumonia. The patient started sanchez ving symptoms approximately a week ago. He was essentially having diarrhea and he is well hydrated for now. He still having episodes of fever. Chest x-ray was reviewed and the CAT scan of the chest was reviewed and there is some vague limited groundglass bilateral pulmonary changes consistent with pneumonia. Nevertheless, the patient is a pulse ox of 97% of oxygen. The patient was taken a total of 40 mg of Decadron outpatient basis every week in combination with his myeloma medication. 2 multiple myeloma 3 fever 4 mild elevation of inflammatory markers secondary to the viral infection Plan: Continue current medical treatment, continue Decadron, prophylactic dose of Lovenox, patient is on room air, however continues to spike fevers, infectious disease are following, Legionella urine antigen was negative. Patient is on azithromycin for possibility of atypical pneumonia, ID service is following. We'll continue to monitor patient's febrile pattern, work of breathing, oxygenation, inflammatory markers. We'll continue to follow I performed a history & physical examination of the patient and discussed their management with my nurse practitioner, Emmanuelle Baird. I reviewed the nurse practitioner's note and agree with the documented findings and plan of care. Lung sounds are positive for diminished breath sounds, with bibasilar crackles The findings and the impression was discussed with the patient. I attest to the documentation by the nurse practitioner. Time with Patient: Less than 30
--- NOTE | 2020-05-14 15:08 | P.PN ---
Subjective Progress Note Date: 05/14/20 Principal diagnosis: COVID and Multiple Myeloma Continues with high fevers. IgG level is low 147. Discussed with [place] in pharmacy and patients , Immunoglobbulin 50grams ordered as two dividied doses over two days Objective - Vital Signs Vital signs: Vital Signs Temp 103.0 F H 05/14/20 14:00 Pulse 122 H 05/14/20 14:00 Resp 20 05/14/20 14:00 BP 126/78 05/14/20 14:00 Pulse Ox 99 05/14/20 14:00 Intake & Output 05/13/20 05/14/20 05/14/20 18:59 06:59 18:59 Intake Total 1100 Balance 1100 Intake: Intake, IV Titration 900 Amount Sodium Chloride 0.9% 1, 900 000 ml @ 75 mls/hr IV . [id number] [facility] Rx#:[id number] Oral 200 Other: Voiding Method Toilet Toilet # Voids 4 4 - Exam - Constitutional General appearance: average body habitus, cooperative, no acute distress - EENT Eyes: anicteric sclerae, EOMI ENT: hearing grossly normal, normal oropharynx - Neck Neck: no lymphadenopathy - Respiratory Respiratory: bilateral: CTA - Cardiovascular Rhythm: regular Heart sounds: normal: S1, S2 Abnormal Heart Sounds: no systolic murmur, no diastolic murmur, no rub, no S3 Gallop, no S4 Gallop, no click, no other leg Peripheral Edema: bilateral: None - Gastrointestinal General gastrointestinal: no absent bowel sounds, no decreased bowel sounds, no distended, no hepatomegaly, no hyperactive bowel sounds, normal bowel sounds, no organomegaly, no rigid, no scaphoid, soft, no splenomegaly, no tenderness, no umbilical hernia, no ventral hernia - Neurologic Neurologic: CNII-XII intact - Musculoskeletal Musculoskeletal: strength equal bilaterally - Psychiatric Psychiatric: A&O x's 3, appropriate affect, intact judgment & insight - Labs CBC & Chem 7: 05/14/20 06:10 05/12/20 16:50 Labs: Abnormal Lab Results - Last 24 Hours (Table) 05/13/20 05/14/20 05/14/20 Range/Units 10:21 06:10 06:10 D-Dimer 0.81 H (<0.60) mg/L FEU Ferritin 2081.2 H (22.0-322.0) ng/mL Lactate Dehydrogenase 258 H (120-246) U/L C-Reactive Protein 17.4 H (0.0-0.8) mg/dL IgG 147.0 L (700.0-1600.0) mg/dL IgA <25.5 L (60.0-350.0) mg/dL IgM <16.9 L (40.0-280.0) mg/dL Microbiology - Last 24 Hours (Table) 05/12/20 16:55 Blood Culture - Preliminary Blood No Growth after 24 hours 05/12/20 16:55 Blood Culture - Preliminary Blood No Growth after 24 hours Assessment and Plan Plan: Chest x-ray: report reviewed CT scan - chest: report reviewed Assessment and Plan COVID-19 - Check of his IgG Level indicates room for IVIG to be given to increase immune support in the body against viral etiology. - IVIG ordered through pharmacy today, will be given in two doses for total of 50grams - Treatment of COVID active infection per ID Fever - Persistent and high - T Max today 103, finally starting to break - Secondary to COvid InfectionCurrent Visit: Yes Status: Acute Priority: High Code(s): R50.9 - FEVER, UNSPECIFIED SNOMED Code(s): 870010388 Multiple Myeloma - Current Treatment on old until resolution of active infection Discussed with today Doctor attests: I performed a history and physical examination of this patient, developed impression and plan of care. Discussed with dictator. I agree with dictators note, documented as a scribe.
[2020-05-14 15:36] LABS: Anisocytosis Slight; Basophils % (A) 0 %; Eosinophils % (A) 0 %; HCT 35.3 % (39.0-53.0); HGB 11.2 gm/dL (13.0-17.5); Lymphocytes # (A) 0.1 k/uL (1.0-4.8); Lymphocytes % (A) 1 %; MCHC 31.6 g/dL (31.0-37.0); MCV 107.3 fL (80.0-100.0); Macrocytosis Marked; Mean Platelet Volume 8.6; Monocytes # (A) 0.3 k/uL (0-1.0); Monocytes % (A) 3 %; Platelet Count 297 k/uL (150-450); RBC 3.29 m/uL (4.30-5.90); RDW 18.4 % (11.5-15.5); WBC 9.6 k/uL (3.8-10.6)
[2020-05-14] MEDS ORDERED: IMMUNE GLOBULIN (GAMMAGARD) 10 GM in EMPTY BAG 1 BAG IV ONE ×3 (16:00→20:00)
[2020-05-14 17:25] LABS: Crenated RBC Present
--- NOTE | 2020-05-14 17:35 | PN ---
PROGRESS NOTE DATE OF SERVICE: 05/14/2020 REASON FOR FOLLOWUP: COVID-19 pneumonia. INTERVAL HISTORY: The patient has been spiking a fever of 103 degrees Fahrenheit. The patient denies having any chest pain. Complaining of cough, not bringing up any sputum. No nausea, no vomiting. No abdominal pain. Did have some diarrhea. PHYSICAL EXAMINATION: Blood pressure 156/78 with a pulse of 122, temperature 103. He is 99% on room air. General description is a middle-aged male lying in bed in no distress. RESPIRATORY SYSTEM: Unlabored breathing with decreased intensity of breath sounds. No wheeze. HEART: S1, S2. Regular rate and rhythm. ABDOMEN: Soft. No tenderness. LABS: D-dimer is 0.81. LDH and CRP seem to have improved. Ferritin is high. Procalcitonin 0.20. DIAGNOSTIC IMPRESSION AND PLAN: Patient with a fever and acute COVID-19 infection. Chest x-ray with new patchy infiltrate. The patient is currently saturating 99% on room air and will not qualify for remdesivir; however, he is currently being treated with Lovenox, dexamethasone, Zithromax and will be started on immunoglobulins. Monitor clinical course closely. Continue with supportive care. MMODL / IJN: [id number] /
[2020-05-14 20:40] LABS: African American GFR (CKD) 122.4 (60.0-200.0); Albumin 4.2 g/dL (3.80-4.90); Albumin/Globulin Ratio 4.2 (1.60-3.17); Anion Gap 13.9 mmol/L (4.00-12.00); BUN/Creat Ratio 18.75 Ratio (12.00-20.00); Calcium 6.9 mg/dL (8.7-10.3); Carbon Dioxide 18.1 mmol/L (21.6-31.8); Magnesium 1.8 mg/dL (1.5-2.4); Non-African American GFR(CKD) 105.6 (60.0-200.0); Potassium 4.1 mmol/L (3.5-5.5); Total Bilirubin 0.6 mg/dL (0.3-1.2); Total Protein 5.2 g/dL (6.2-8.2)
[2020-05-14] MEDS ORDERED: ZOLPIDEM 5 MG TAB PO SCH (21:00)
[2020-05-14] MEDS: ESCITALOPRAM 20 MG TAB PO SCH (21:38)
[2020-05-14] MEDS: MIRTAZAPINE 15 MG TAB PO SCH (21:39)
[2020-05-14] MEDS: MELATONIN 5 MG TABLET PO SCH (21:39)
[2020-05-14] MEDS: SODIUM CHLORIDE 0.9% 1,000 ML IV SCH (21:40)
[2020-05-15] MEDS: SODIUM CHLORIDE 0.9% 1,000 ML IV SCH ×2 (02:42→16:03)
[2020-05-15] MEDS: ACETAMINOPHEN TAB 500 MG TAB PO PRN (05:43)
[2020-05-15 06:51] LABS: Anisocytosis Slight; Basophils % (A) 0 %; Eosinophils % (A) 0 %; HCT 32.6 % (39.0-53.0); HGB 11.1 gm/dL (13.0-17.5); Lymphocytes # (A) 0.2 k/uL (1.0-4.8); Lymphocytes % (A) 2 %; MCH 34.9 pg (25.0-35.0); MCHC 33.9 g/dL (31.0-37.0); MCV 102.9 fL (80.0-100.0); Macrocytosis Moderate; Mean Platelet Volume 7.4; Monocytes # (A) 0.4 k/uL (0-1.0); Monocytes % (A) 5 %; Neutrophils # (A) 7.8 k/uL (1.3-7.7); Neutrophils % (A) 93 %; Platelet Count 307 k/uL (150-450); RBC 3.17 m/uL (4.30-5.90); RDW 17.7 % (11.5-15.5); WBC 8.4 k/uL (3.8-10.6)
[2020-05-15] MEDS: FAMOTIDINE 20 MG TAB PO SCH ×2 (08:51→20:48)
[2020-05-15] MEDS: ZINC SULFATE 220 MG CAP PO SCH (08:51)
[2020-05-15] MEDS: ENOXAPARIN 40 MG/0.4 ML SYRINGE SQ SCH (08:51)
[2020-05-15] MEDS: CALCIUM CARBONATE 500 MG CHEWABLE PO SCH (08:52)
[2020-05-15] MEDS: AZITHROMYCIN 250 MG TAB PO SCH (08:52)
[2020-05-15] MEDS: ASCORBIC ACID 500 MG TAB PO SCH (08:52)
[2020-05-15] MEDS: dexAMETHasone 2 MG TAB PO SCH (08:52)
[2020-05-15 09:39] LABS: African American GFR (CKD) 137.8 (60.0-200.0); Albumin/Globulin Ratio 2.35 (1.60-3.17); BUN/Creat Ratio 23.33 Ratio (12.00-20.00); Globulin 1.7 g/dL (1.6-3.3); Magnesium 1.9 mg/dL (1.5-2.4); Non-African American GFR(CKD) 118.9 (60.0-200.0); Potassium 3.8 mmol/L (3.5-5.5); Total Bilirubin 0.5 mg/dL (0.3-1.2); Total Protein 5.7 g/dL (6.2-8.2)
[2020-05-15] MEDS ORDERED: LOPERAMIDE 2 MG CAP PO STA (11:06)
--- NOTE | 2020-05-15 11:12 | P.PN ---
Subjective Progress Note Date: 05/15/20 49-year-old male patient with known history of multiple myeloma presented to the emergency department with symptoms typical of COVID 19 infection.. The patient had fever, as well as on and off cough and the some minimal shortness of breath. The patient was taking Tylenol on outpatient basis. No nausea. No vomiting. No abdominal pain. The patient was having frequent bouts of diarrhea. The diarrhea was going on for almost a week worse over the past 3 days. No signs of any significant dehydration at this point in time. No altered mentation. His symptoms started a week ago. His chest x-ray shows new bilateral patchy interstitial infiltrates consistent with Covid [address] angiogram of the chest was also done and the CAT scan showed resolution of the pulmonary embolism. There was patchy bilateral areas of pulmonary is associated infiltrates and airspace disease in addition to old changes consistent multiple myeloma including lytic and sclerotic changes in the thoracic spine. He confirmed positive for Covid 19 infection. He had a pro-calcitonin level of 0.2. LDH was 799, CRP is 133 and the d-dimer is at 0.80. The patient is currently on oral Decadron. He still having temperature with a T-max of 101.3 this morning and one at 2.1 yesterday evening. Pulse ox is 97% room air oxygen. On 05/14/2020 patient seen in follow-up on medical floor, he appears to be in no acute distress, continues to be febrile, with a T-max of 103.1F, he is on room air, his breathing appears to be comfortable, occasional cough, vital signs have been stable, he continues on oral Decadron 6 mg daily, he is on azithromycin 250 mg daily in addition to Pepcid, vitamins, in prophylactic doses of Lovenox 40 mg daily. D-dimer is 0.81, his ferritin level has trended up to 2081, LDH and CRP have significantly improved and are down to 258 and 17.4 respectively. Urine Legionella antigen is negative. ProCalcitonin level was 0.20. ID service is following. 2020, the patient's main complaint remains diarrhea. His fever has subsided and he is afebrile for the past 24 hours. Note that he was having temperatures earlier. He is having liquidy diarrhea and this morning he has already had 2 bouts. No abdominal pain. No nausea. No emesis. His inflammatory markers are showing an LDH level of 258 from yesterday and the CRP level of 5.7 from yesterday. All of these markers of low and they are downtrending. His total IgG level was 147 and the patient is being given IVIG per oncology recommendations. Otherwise, the patient is on 6 mg of Decadron for now on a daily basis. He is also on Lovenox 40 mg for DVT prophylaxis. Legionella urine antigen came back negative. Electrolytes are all within normal limits. CBC shows a hemoglobin of 11.1 and the patient continues to have a component of lymphopenia with a lymphocyte count of 0.2. Is on room air oxygen. Objective - Vital Signs Vital signs: Vital Signs Temp 98.1 F 05/15/20 09:27 Pulse 74 05/15/20 09:27 Resp 18 05/15/20 09:27 BP 130/74 05/15/20 09:27 Pulse Ox 96 05/15/20 09:27 Intake & Output 05/14/20 05/15/20 05/15/20 18:59 06:59 18:59 Intake Total 450 900 Balance 450 900 Intake: Intake, IV Titration 100 900 Amount Immune Globulin ( 100 Gammagard) 10 gm In Empty Bag 1 bag @ Per Protocol IV .Q0M [facility] Rx#: [id number] Sodium Chloride 0.9% 1, 900 000 ml @ 75 mls/hr IV . [id number] [facility] Rx#:[id number] Oral 350 Other: Voiding Method Toilet Toilet # Voids 3 - Exam GENERAL EXAM: Alert, very pleasant, 49-year-old white male, on room air with a pulse ox of 99% comfortable in no apparent distress. HEAD: Normocephalic/atraumatic. EYES: Normal reaction of pupils, equal size. Conjunctiva pink, sclera white. NOSE: Clear with pink turbinates. THROAT: No erythema or exudates. NECK: No masses, no JVD, no thyroid enlargement, no adenopathy. CHEST: No chest wall deformity. Symmetrical expansion. LUNGS: Equal air entry with no crackles, wheeze, rhonchi or dullness. CVS: Regular rate and rhythm, normal S1 and S2, no gallops, no murmurs, no rubs ABDOMEN: Soft, nontender. No hepatosplenomegaly, normal bowel sounds, no guarding or rigidity. EXTREMITIES: No clubbing, no edema, no cyanosis, 2+ pulses and upper and lower extremities. MUSCULOSKELETAL: Muscle strength and tone normal. SPINE: No scoliosis or deformity SKIN: No rashes CENTRAL NERVOUS SYSTEM: Alert and oriented -3. No focal deficits, tone is normal in all 4 extremities. PSYCHIATRIC: Alert and oriented -3. Appropriate affect. Intact judgment and insight. - Labs CBC & Chem 7: 05/15/20 06:19 05/15/20 06:19 Labs: Abnormal Lab Results - Last 24 Hours (Table) 05/13/20 05/14/20 05/14/20 Range/Units 10:21 06:10 06:10 RBC 3.29 L (4.30-5.90) m/uL Hgb 11.2 L (13.0-17.5) gm/dL Hct 35.3 L (39.0-53.0) % MCV 107.3 H (80.0-100.0) fL RDW 18.4 H (11.5-15.5) % Neutrophils # 9.0 H (1.3-7.7) k/uL Lymphocytes # 0.1 L (1.0-4.8) k/uL Macrocytosis Marked A Sodium (135-145) mmol/L Carbon Dioxide (21.6-31.8) mmol/L Anion Gap (4.00-12.00) mmol/L BUN/Creatinine Ratio (12.00-20.00) Ratio Glucose (70-110) mg/dL Calcium (8.7-10.3) mg/dL Ferritin 2081.2 H (22.0-322.0) ng/mL Lactate Dehydrogenase 258 H (120-246) U/L C-Reactive Protein 17.4 H (0.0-0.8) mg/dL Total Protein (6.2-8.2) g/dL Globulin (1.6-3.3) g/dL Albumin/Globulin Ratio (1.60-3.17) g/dL IgG 147.0 L (700.0-1600.0) mg/dL IgA <25.5 L (60.0-350.0) mg/dL IgM <16.9 L (40.0-280.0) mg/dL 05/14/20 05/15/2021 Range/Units 06:10 06:19 06:19 RBC 3.17 L (4.30-5.90) m/uL Hgb 11.1 L (13.0-17.5) gm/dL Hct 32.6 L (39.0-53.0) % MCV 102.9 H (80.0-100.0) fL RDW 17.7 H (11.5-15.5) % Neutrophils # 7.8 H (1.3-7.7) k/uL Lymphocytes # 0.2 L (1.0-4.8) k/uL Macrocytosis Sodium 133 L (135-145) mmol/L Carbon Dioxide 18.1 L 20.0 L (21.6-31.8) mmol/L Anion Gap 13.90 H (4.00-12.00) mmol/L BUN/Creatinine Ratio 23.33 H (12.00-20.00) Ratio Glucose 126 H 147 H (70-110) mg/dL Calcium 6.9 L 7.0 L (8.7-10.3) mg/dL Ferritin (22.0-322.0) ng/mL Lactate Dehydrogenase (120-246) U/L C-Reactive Protein (0.0-0.8) mg/dL Total Protein 5.2 L 5.7 L (6.2-8.2) g/dL Globulin 1.0 L (1.6-3.3) g/dL Albumin/Globulin Ratio 4.20 H (1.60-3.17) g/dL IgG (700.0-1600.0) mg/dL IgA (60.0-350.0) mg/dL IgM (40.0-280.0) mg/dL Microbiology - Last 24 Hours (Table) 05/12/20 16:55 Blood Culture - Preliminary Blood No Growth after 48 hours 05/12/20 16:55 Blood Culture - Preliminary Blood No Growth after 48 hours Assessment and Plan Plan: 1 acute Covid 19 related infection with mild pneumonia. The patient started having symptoms approximately a week ago. He was essentially having diarrhea and he is well hydrated for now. He still having episodes of fever. Chest x- ray was reviewed and the CAT scan of the chest was reviewed and there is some vague limited groundglass bilateral pulmonary changes consistent with pneumonia. Nevertheless, the patient is a pulse ox of 97% of oxygen. The patient was taken a total of 40 mg of Decadron outpatient basis every week in combination with his myeloma medication. 2 multiple myeloma with secondary hypogammaglobulinemia putting him at the increased risk of secondary bacterial infections. 3 fever 4 mild elevation of inflammatory markers secondary to the viral infection, improving Plan The patient is receiving IV fluids. He is tolerating his liquid and fluid intake and the patient's diarrhea has subsided. Decadron 6 mg by mouth daily for the next 10 days and then going back to his usual dose of Decadron. Treatment with IVIG is extremely questionable and probably ineffective in fighting Covid 19. This may protect this patient from secondary bacterial infection. This was recommended by hematology oncology and the patient is receiving the treatment Total or Imodium for diarrhea Monitor fever. Give Tylenol. He is a usual vitamin C and vitamin D and melatonin Pepcid in addition to zinc regarding treatment of Covid 19 infection.
--- NOTE | 2020-05-15 14:24 | P.PN ---
Subjective Progress Note Date: 05/15/20 Principal diagnosis: 1. COVID infection 2. MM 3. Hypogammaglobulinemia 4. Fevers Fevers improved. Objective - Vital Signs Vital signs: Vital Signs Temp 98.1 F 05/15/20 09:27 Pulse 74 05/15/20 09:27 Resp 18 05/15/20 09:27 BP 130/74 05/15/20 09:27 Pulse Ox 96 05/15/20 09:27 Intake & Output 05/14/20 05/15/20 05/15/20 18:59 06:59 18:59 Intake Total 450 900 Balance 450 900 Intake: Intake, IV Titration 100 900 Amount Immune Globulin ( 100 Gammagard) 10 gm In Empty Bag 1 bag @ Per Protocol IV .Q0M [facility] Rx#: [id number] Sodium Chloride 0.9% 1, 900 000 ml @ 75 mls/hr IV . [id number] [facility] Rx#:[id number] Oral 350 Other: Voiding Method Toilet Toilet # Voids 3 - Exam Vitals stable and normal. Afebrile. Due to concerns of Covid19 detection/exposure, in an effort to limit healthcare provider exposure and transmission, parts of the encounter may of been obtained through chart review, family members, total/video visits, and/or discussion with primary team/nursing and ancillary staff. - Labs CBC & Chem 7: 05/15/20 06:19 05/15/20 06:19 Labs: Abnormal Lab Results - Last 24 Hours (Table) 05/14/20 05/14/20 05/15/20 Range/Units 06:10 06:10 06:19 RBC 3.29 L 3.17 L (4.30-5.90) m/uL Hgb 11.2 L 11.1 L (13.0-17.5) gm/dL Hct 35.3 L 32.6 L (39.0-53.0) % MCV 107.3 H 102.9 H (80.0-100.0) fL RDW 18.4 H 17.7 H (11.5-15.5) % Neutrophils # 9.0 H 7.8 H (1.3-7.7) k/uL Lymphocytes # 0.1 L 0.2 L (1.0-4.8) k/uL Macrocytosis Marked A Sodium (135-145) mmol/L Carbon Dioxide 18.1 L (21.6-31.8) mmol/L Anion Gap 13.90 H (4.00-12.00) mmol/L BUN/Creatinine Ratio (12.00-20.00) Ratio Glucose 126 H (70-110) mg/dL Calcium 6.9 L (8.7-10.3) mg/dL Total Protein 5.2 L (6.2-8.2) g/dL Globulin 1.0 L (1.6-3.3) g/dL Albumin/Globulin Ratio 4.20 H (1.60-3.17) g/dL 05/15/20 Range/Units 06:19 RBC (4.30-5.90) m/uL Hgb (13.0-17.5) gm/dL Hct (39.0-53.0) % MCV (80.0-100.0) fL RDW (11.5-15.5) % Neutrophils # (1.3-7.7) k/uL Lymphocytes # (1.0-4.8) k/uL Macrocytosis Sodium 133 L (135-145) mmol/L Carbon Dioxide 20.0 L (21.6-31.8) mmol/L Anion Gap (4.00-12.00) mmol/L BUN/Creatinine Ratio 23.33 H (12.00-20.00) Ratio Glucose 147 H (70-110) mg/dL Calcium 7.0 L (8.7-10.3) mg/dL Total Protein 5.7 L (6.2-8.2) g/dL Globulin (1.6-3.3) g/dL Albumin/Globulin Ratio (1.60-3.17) g/dL Microbiology - Last 24 Hours (Table) 05/12/20 16:55 Blood Culture - Preliminary Blood No Growth after 48 hours 05/12/20 16:55 Blood Culture - Preliminary Blood No Growth after 48 hours Assessment and Plan Assessment: 1. COVID infection 2. MM 3. Hypogammaglobulinemia 4. Fevers Plan: Mr. Arthur is a 49 yo male with history of MM who is here for fevers due to COVID. Has hypogammaglobulinemia, started on IVIG. No reactions so far. Continue with day 2/2 of IVIG. Continue supportive care and infection treatment as per primary team and other consultants. Hold MM treatment until pt improves from acute illness. Due to concerns of Covid19 detection/exposure, in an effort to limit healthcare provider exposure and transmission, parts of the encounter may of been obtained through chart review, family members, total/video visits, and/or discussion with primary team/nursing and ancillary staff.
[2020-05-15] MEDS ORDERED: IMMUNE GLOBULIN (GAMMAGARD) 10 GM in EMPTY BAG 1 BAG IV ONE ×2 (16:00→18:00)
--- NOTE | 2020-05-15 16:45 | P.PN ---
Subjective Progress Note Date: 05/14/20 Principal diagnosis: Covert 19 bilateral pneumonia Multiple myeloma with secondary hypogammaglobulinemia Patient is a 49-year-old male with a known history of multiple myeloma currently chemotherapy, hypertension presents to ER with the complaints of fever and shortness of breath along with diarrhea for the past 1 week. Patient states that he also lost taste and smell sensation during this time. Shortness of breath is minimal with on and off cough. Patient has been febrile. Patient states that his family numbers have been sick as well. Due to worsening symptoms of diarrhea and shortness of breath patient presents to ER for evaluation. Chest x-ray showed there is new bilateral patchy interstitial pneumonia and subsegmental atelectasis compared to old exam. CT angiogram of the chest showed no evidence of PE. There are patchy bilateral areas of pulmonary interstitial and airspace infiltrate that is worse than the last CT scan of 07/29/2018 Lytic and sclerotic changes in the thoracic spine consistent with myeloma also present. Objective - Vital Signs Vital signs: Vital Signs Temp 98.0 F 05/14/20 10:00 Pulse 81 05/14/20 10:00 Resp 16 05/14/20 10:00 BP 112/70 05/14/20 10:00 Pulse Ox 99 05/14/20 10:00 Intake & Output 05/13/20 05/14/20 05/14/20 18:59 06:59 18:59 Intake Total 1100 Balance 1100 Intake: Intake, IV Titration 900 Amount Sodium Chloride 0.9% 1, 900 000 ml @ 75 mls/hr IV . [id number] [facility] Rx#:[id number] Oral 200 Other: Voiding Method Toilet Toilet # Voids 4 4 - Exam HEAD: Normocephalic/atraumatic. EYES: Normal reaction of pupils, equal size. Conjunctiva pink, sclera white. NOSE: Clear with pink turbinates. THROAT: No erythema or exudates. NECK: No masses, no JVD, no thyroid enlargement, no adenopathy. CHEST: No chest wall deformity. Symmetrical expansion. LUNGS: Equal air entry with no crackles, wheeze, rhonchi or dullness. CVS: Regular rate and rhythm, normal S1 and S2, no gallops, no murmurs, no rubs ABDOMEN: Soft, nontender. No hepatosplenomegaly, normal bowel sounds, no guarding or rigidity. EXTREMITIES: No clubbing, no edema, no cyanosis, 2+ pulses and upper and lower extremities. MUSCULOSKELETAL: Muscle strength and tone normal. - Labs CBC & Chem 7: 05/15/20 06:19 05/15/20 06:19 Labs: Abnormal Lab Results - Last 24 Hours (Table) 05/13/20 05/14/20 05/14/20 Range/Units 10:21 06:10 06:10 D-Dimer 0.81 H (<0.60) mg/L FEU Ferritin 2081.2 H (22.0-322.0) ng/mL Lactate Dehydrogenase 258 H (120-246) U/L C-Reactive Protein 17.4 H (0.0-0.8) mg/dL IgG 147.0 L (700.0-1600.0) mg/dL IgA <25.5 L (60.0-350.0) mg/dL IgM <16.9 L (40.0-280.0) mg/dL Microbiology - Last 24 Hours (Table) 05/12/20 16:55 Blood Culture - Preliminary Blood No Growth after 24 hours 05/12/20 16:55 Blood Culture - Preliminary Blood No Growth after 24 hours Assessment and Plan Assessment: Acute COVID-19 pneumonia Acute diarrhea, fever, loss of taste and smell x1 week due to COVID-19 infection Multiple myeloma with metastatic lesions in the spine. Currently chemotherapy at home. Last taken 05/10/2020 Macrocytosis secondary to chemotherapy Hypertension DVT Proph with lovenox Plan: Patient will be continued on IV hydration and symptomatic management. Continued multivitamins, zinc sulfate and anticoagulation with Lovenox. Pulmonary is on board. Continue with droplet and contact precautions.
--- NOTE | 2020-05-15 16:46 | P.PN ---
Subjective Progress Note Date: 05/15/20 Principal diagnosis: Covert 19 bilateral pneumonia Multiple myeloma with secondary hypogammaglobulinemia Patient is a 49-year-old male with a known history of multiple myeloma currently chemotherapy, hypertension presents to ER with the complaints of fever and shortness of breath along with diarrhea for the past 1 week. Patient states that he also lost taste and smell sensation during this time. Shortness of breath is minimal with on and off cough. Patient has been febrile. Patient states that his family numbers have been sick as well. Due to worsening symptoms of diarrhea and shortness of breath patient presents to ER for evaluation. Chest x-ray showed there is new bilateral patchy interstitial pneumonia and subsegmental atelectasis compared to old exam. CT angiogram of the chest showed no evidence of PE. There are patchy bilateral areas of pulmonary interstitial and airspace infiltrate that is worse than the last CT scan of 07/29/2018 Lytic and sclerotic changes in the thoracic spine consistent with myeloma also present. 05/15/2020 the patient is seen and evaluated in room at bedside ; continues to complain of diarrhea. His fever has subsided and he is afebrile for the past 24 hours. Note that he was having temperatures earlier. He is having liquidy diarrhea and this morning he has already had 2 bouts. No abdominal pain. No nausea. No emesis. His inflammatory markers are showing an LDH level of 258 from yesterday and the CRP level of 5.7 from yesterday. All of these markers of low and they are downtrending. His total IgG level was 147 and the patient is being given IVIG per oncology recommendations. Otherwise, the patient is on 6 mg of Decadron for now on a daily basis. He is also on Lovenox 40 mg for DVT p rophylaxis. Legionella urine antigen came back negative. Electrolytes are all within normal limits. CBC shows a hemoglobin of 11.1 and the patient continues to have a component of lymphopenia with a lymphocyte count of 0.2. Is on room air oxygen. Objective - Vital Signs Vital signs: Vital Signs Temp 98.1 F 05/15/20 09:27 Pulse 74 05/15/20 09:27 Resp 18 05/15/20 09:27 BP 130/74 05/15/20 09:27 Pulse Ox 96 05/15/20 09:27 Intake & Output 0105/15/20 05/15/20 18:59 06:59 18:59 Intake Total 450 900 Balance 450 900 Intake: Intake, IV Titration 100 900 Amount Immune Globulin ( 100 Gammagard) 10 gm In Empty Bag 1 bag @ Per Protocol IV .Q0M [facility] Rx#: [id number] Sodium Chloride 0.9% 1, 900 000 ml @ 75 mls/hr IV . [id number] [facility] Rx#:[id number] Oral 350 Other: Voiding Method Toilet Toilet # Voids 3 - Exam HEAD: Normocephalic/atraumatic. EYES: Normal reaction of pupils, equal size. Conjunctiva pink, sclera white. NOSE: Clear with pink turbinates. THROAT: No erythema or exudates. NECK: No masses, no JVD, no thyroid enlargement, no adenopathy. CHEST: No chest wall deformity. Symmetrical expansion. LUNGS: Equal air entry with no crackles, wheeze, rhonchi or dullness. CVS: Regular rate and rhythm, normal S1 and S2, no gallops, no murmurs, no rubs ABDOMEN: Soft, nontender. No hepatosplenomegaly, normal bowel sounds, no guarding or rigidity. EXTREMITIES: No clubbing, no edema, no cyanosis, 2+ pulses and upper and lower extremities. MUSCULOSKELETAL: Muscle strength and tone normal. - Labs CBC & Chem 7: 05/15/20 06:19 05/15/20 06:19 Labs: Abnormal Lab Results - Last 24 Hours (Table) 05/14/20 05/14/20 05/15/20 Range/Units 06:10 06:10 06:19 RBC 3.29 L 3.17 L (4.30-5.90) m/uL Hgb 11.2 L 11.1 L (13.0-17.5) gm/dL Hct 35.3 L 32.6 L (39.0-53.0) % MCV 107.3 H 102.9 H (80.0-100.0) fL RDW 18.4 H 17.7 H (11.5-15.5) % Neutrophils # 9.0 H 7.8 H (1.3-7.7) k/uL Lymphocytes # 0.1 L 0.2 L (1.0-4.8) k/uL Macrocytosis Marked A Sodium (135-145) mmol/L Carbon Dioxide 18.1 L (21.6-31.8) mmol/L Anion Gap 13.90 H (4.00-12.00) mmol/L BUN/Creatinine Ratio (12.00-20.00) Ratio Glucose 126 H (70-110) mg/dL Calcium 6.9 L (8.7-10.3) mg/dL Total Protein 5.2 L (6.2-8.2) g/dL Globulin 1.0 L (1.6-3.3) g/dL Albumin/Globulin Ratio 4.20 H (1.60-3.17) g/dL 05/15/20 Range/Units 06:19 RBC (4.30-5.90) m/uL Hgb (13.0-17.5) gm/dL Hct (39.0-53.0) % MCV (80.0-100.0) fL RDW (11.5-15.5) % Neutrophils # (1.3-7.7) k/uL Lymphocytes # (1.0-4.8) k/uL Macrocytosis Sodium 133 L (135-145) mmol/L Carbon Dioxide 20.0 L (21.6-31.8) mmol/L Anion Gap (4.00-12.00) mmol/L BUN/Creatinine Ratio 23.33 H (12.00-20.00) Ratio Glucose 147 H (70-110) mg/dL Calcium 7.0 L (8.7-10.3) mg/dL Total Protein 5.7 L (6.2-8.2) g/dL Globulin (1.6-3.3) g/dL Albumin/Globulin Ratio (1.60-3.17) g/dL Microbiology - Last 24 Hours (Table) 05/12/20 16:55 Blood Culture - Preliminary Blood No Growth after 48 hours 05/12/20 16:55 Blood Culture - Preliminary Blood No Growth after 48 hours Assessment and Plan Assessment: Acute COVID-19 pneumonia Acute diarrhea, fever, loss of taste and smell x1 week due to COVID-19 infection Multiple myeloma with metastatic lesions in the spine. Currently chemotherapy at home. Last taken 05/10/2020 Macrocytosis secondary to chemotherapy Hypertension DVT Proph with lovenox Plan: Patient will be continued on IV hydration and symptomatic management. Continued multivitamins, zinc sulfate and anticoagulation with Lovenox. Pulmonary is on board. Continue with droplet and contact precautions.
--- NOTE | 2020-05-15 19:54 | PN ---
PROGRESS NOTE DATE OF SERVICE: 05/15/2020 REASON FOR FOLLOWUP: COVID-19 pneumonia. INTERVAL HISTORY: The patient overall fever pattern has improved. The last temperature this morning has been 99.8. The patient has been breathing comfortably. The patient denies any chest pain. Minimal cough. No abdominal pain and diarrhea has decreased. PHYSICAL EXAMINATION: Blood pressure 132/82 with a pulse of 76, temperature 98.3. He is 97% on room air. General description: The patient is a young male lying in bed in no distress. Respiratory system: Unlabored breathing, decreased intensity of the breath sounds. No wheeze. Heart S1, S2. Regular rate and rhythm. Abdomen soft, no tenderness. LABS: Hemoglobin 11.1, white count 8.4, BUN of 14, creatinine 0.6. DIAGNOSTIC IMPRESSION/PLAN: Patient with acute COVID-19 pneumonia in this patient who does have underlying multiple myeloma. The patient seemed to have clinically responded to the IV IG infusion to continue with Lovenox, Dexamethasone, zinc and respiratory support. Monitor clinical course closely. MMZACKL / DIEGON: [id number] /
[2020-05-15] MEDS: ESCITALOPRAM 20 MG TAB PO SCH ×2 (20:48→20:52)
[2020-05-15] MEDS: MIRTAZAPINE 15 MG TAB PO SCH (20:48)
[2020-05-15] MEDS ORDERED: ZOLPIDEM 5 MG TAB PO SCH (21:00)
[2020-05-16] MEDS: SODIUM CHLORIDE 0.9% 1,000 ML IV SCH (06:53)
[2020-05-16] MEDS: ASCORBIC ACID 500 MG TAB PO SCH (08:49)
[2020-05-16] MEDS: AZITHROMYCIN 250 MG TAB PO SCH (08:49)
[2020-05-16] MEDS: CALCIUM CARBONATE 500 MG CHEWABLE PO SCH (08:49)
[2020-05-16] MEDS: FAMOTIDINE 20 MG TAB PO SCH (08:49)
[2020-05-16] MEDS: ENOXAPARIN 40 MG/0.4 ML SYRINGE SQ SCH (08:50)
[2020-05-16] MEDS: dexAMETHasone 2 MG TAB PO SCH (08:50)
[2020-05-16] MEDS: ZINC SULFATE 220 MG CAP PO SCH (08:50)
--- NOTE | 2020-05-16 10:43 | P.PN ---
Subjective Progress Note Date: 05/16/20 49-year-old male patient with known history of multiple myeloma presented to the emergency department with symptoms typical of COVID 19 infection.. The patient had fever, as well as on and off cough and the some minimal shortness of breath. The patient was taking Tylenol on outpatient basis. No nausea. No vomiting. No abdominal pain. The patient was having frequent bouts of diarrhea. The diarrhea was going on for almost a week worse over the past 3 days. No signs of any significant dehydration at this point in time. No altered mentation. His symptoms started a week ago. His chest x-ray shows new bilateral patchy interstitial infiltrates consistent with Covid [address] angiogram of the chest was also done and the CAT scan showed resolution of the pulmonary embolism. There was patchy bilateral areas of pulmonary is associated infiltrates and airspace disease in addition to old changes consistent multiple myeloma including lytic and sclerotic changes in the thoracic spine. He confirmed positive for Covid 19 infection. He had a pro-calcitonin level of 0.2. LDH was 799, CRP is 133 and the d-dimer is at 0.80. The patient is currently on oral Decadron. He still having temperature with a T-max of 101.3 this morning and one at 2.1 yesterday evening. Pulse ox is 97% room air oxygen. On 05/14/2020 patient seen in follow-up on medical floor, he appears to be in no acute distress, continues to be febrile, with a T-max of 103.1F, he is on room air, his breathing appears to be comfortable, occasional cough, vital signs have been stable, he continues on oral Decadron 6 mg daily, he is on azithromycin 250 mg daily in addition to Pepcid, vitamins, in prophylactic doses of Lovenox 40 mg daily. D-dimer is 0.81, his ferritin level has trended up to 2081, LDH and CRP have significantly improved and are down to 258 and 17.4 respectively. Urine Legionella antigen is negative. ProCalcitonin level was 0.20. ID service is following. 2020, the patient's main complaint remains diarrhea. His fever has subsided and he is afebrile for the past 24 hours. Note that he was having temperatures earlier. He is having liquidy diarrhea and this morning he has already had 2 bouts. No abdominal pain. No nausea. No emesis. His inflammatory markers are showing an LDH level of 258 from yesterday and the CRP level of 5.7 from yesterday. All of these markers of low and they are downtrending. His total IgG level was 147 and the patient is being given IVIG per oncology recommendations. Otherwise, the patient is on 6 mg of Decadron for now on a daily basis. He is also on Lovenox 40 mg for DVT prophylaxis. Legionella urine antigen came back negative. Electrolytes are all within normal limits. CBC shows a hemoglobin of 11.1 and the patient continues to have a component of lymphopenia with a lymphocyte count of 0.2. Is on room air oxygen. 05/16/2020, the patient remains free of any fever, no cough, no respiratory distress, no chest pain and his diarrhea has subsided. He received IVIG per hematology oncology. Pulse ox is 94% on room air and the patient's is taking 6 mg of Decadron a daily basis. No labs from today. He is a case of multiple myeloma. Note that his LDH and CRP was only mildly elevated. He is able to get up and move around and ambulate. No altered mentation. No other new complaints otherwise for now. Objective - Vital Signs Vital signs: Vital Signs Temp 98.4 F 05/16/20 05:31 Pulse 76 05/16/20 05:31 Resp 17 05/16/20 05:31 BP 134/76 05/16/20 05:31 Pulse Ox 94 L 05/16/20 05:31 Intake & Output 05/15/20 05/16/20 05/16/20 18:59 06:59 18:59 Other: Voiding Method Toilet Toilet # Voids 2 2 - Exam GENERAL EXAM: Alert, very pleasant, 49-year-old white male, on room air with a pulse ox of 99% comfortable in no apparent distress. HEAD: Normocephalic/atraumatic. EYES: Normal reaction of pupils, equal size. Conjunctiva pink, sclera white. NOSE: Clear with pink turbinates. THROAT: No erythema or exudates. NECK: No masses, no JVD, no thyroid enlargement, no adenopathy. CHEST: No chest wall deformity. Symmetrical expansion. LUNGS: Equal air entry with no crackles, wheeze, rhonchi or dullness. CVS: Regular rate and rhythm, normal S1 and S2, no gallops, no murmurs, no rubs ABDOMEN: Soft, nontender. No hepatosplenomegaly, normal bowel sounds, no guarding or rigidity. EXTREMITIES: No clubbing, no edema, no cyanosis, 2+ pulses and upper and lower extremities. MUSCULOSKELETAL: Muscle strength and tone normal. SPINE: No scoliosis or deformity SKIN: No rashes CENTRAL NERVOUS SYSTEM: Alert and oriented -3. No focal deficits, tone is nor mal in all 4 extremities. PSYCHIATRIC: Alert and oriented -3. Appropriate affect. Intact judgment and insight. - Labs CBC & Chem 7: 05/15/20 06:19 05/15/20 06:19 Labs: Microbiology - Last 24 Hours (Table) 05/12/20 16:55 Blood Culture - Preliminary Blood No Growth after 72 hours 05/12/20 16:55 Blood Culture - Preliminary Blood No Growth after 72 hours Assessment and Plan Plan: 1 acute Covid 19 related infection with mild pneumonia. The patient started having symptoms approximately a week ago. He was essentially having diarrhea and he is well hydrated for now. He still having episodes of fever. Chest x- ray was reviewed and the CAT scan of the chest was reviewed and there is some vague limited groundglass bilateral pulmonary changes consistent with pneumonia. Nevertheless, the patient is a pulse ox of 97% of oxygen. The patient was taken a total of 40 mg of Decadron outpatient basis every week in combination with his myeloma medication. 2 multiple myeloma with secondary hypogammaglobulinemia putting him at the increased risk of secondary bacterial infections. 3 fever 4 mild elevation of inflammatory markers secondary to the viral infection, improving Plan The patient is receiving IV fluids. He is tolerating his liquid and fluid intak e and the patient's diarrhea has subsided. He has completely subsided and the patient has no signs of pneumonia or respiratory distress. No signs of any respiratory insufficiency. No cough or sputum production. He is on 6 mg of Decadron. Decadron 6 mg by mouth daily for the next 10 days and then going back to his usual dose of Decadron. Treatment with IVIG is extremely questionable and probably ineffective in fighting Covid 19. This may protect this patient from secondary bacterial infection. This was recommended by hematology oncology and the patient is receiving the treatment, and the patient was given a total of 2 doses When necessary Imodium for diarrhea Monitor fever and currently is afebrile. He is a usual vitamin C and vitamin D and melatonin Pepcid in addition to zinc regarding treatment of Covid 19 infection. Discharge is possible as the patient is stable from the pulmonary standpoint
[2020-05-16 14:12] VITALS: BP 134/87; PULSE 101; RESP 18; TEMP 97.7
[2020-05-17] MEDS ORDERED: SULFAMETHOX-TMP 800-160MG 1 EACH TAB PO SCH (09:00)
== END 2020-05-16 15:34 | disposition home or self-care (01) | DRG 177 ==
LOC: EC 15:21 → 4SSUR 19:53
PROVIDERS: ADMIT Hospitalist; ATTEND Hospitalist
DX: U07.1 COVID-19 (principal); J12.82 Pneumonia due to coronavirus disease 2019; N17.9 Acute kidney failure, unspecified; D80.1 Nonfamilial hypogammaglobulinemia; A08.39 Other viral enteritis; G37.9 Demyelinating disease of central nervous system, unspecified; C90.00 Multiple myeloma not having achieved remission; I10 Essential (primary) hypertension; R00.0 Tachycardia, unspecified; D75.89 Other specified diseases of blood and blood-forming organs; T45.1X5A Adverse effect of antineoplastic and immunosuppressive drugs, initial encounter; Z79.82 Long term (current) use of aspirin; Z79.899 Other long term (current) drug therapy; Z86.711 Personal history of pulmonary embolism; Z92.3 Personal history of irradiation; Z87.311 Personal history of (healed) other pathological fracture; Z90.49 Acquired absence of other specified parts of digestive tract; Z88.5 Allergy status to narcotic agent; Z82.49 Family history of ischemic heart disease and other diseases of the circulatory system
CPT/HCPCS: 36415; 71045; 71275; 80053; 82728; 82784; 83605; 83615; 83735; 84145; 85025; 85379; 85610; 85730; 86140; 87040; 87449; 87635; 93005; 96374; 99285

== ENCOUNTER → 2021-01-28 | Outpatient (CLI) | payer BC ==
--- NOTE | 2021-01-28 09:51 | XR ---
EXAMINATION TYPE: XR chest 2V DATE OF EXAM: 01/28/2021 COMPARISON: 05/12/2020 TECHNIQUE: PA and lateral views submitted. HISTORY: Shortness of breath. FINDINGS: Prominent interstitial pattern. Chronic deformity right rib cage. Biapical pleural thickening. Heart size normal. Left-sided rib deformity also noted. No pleural effusion or pneumothorax. IMPRESSION: 1. Correlate for central interstitial pneumonitis or early venous congestion. 2. Chronic rib deformities.
== END | disposition home or self-care (01) ==
LOC: RADXRMAIN 09:32
PROVIDERS: ATTEND Internal Medicine Hematology & Oncology
DX: J98.4 Other disorders of lung (principal)
CPT/HCPCS: 71046

== ENCOUNTER → 2021-01-28 | Outpatient (CLI) | payer BC | END | disposition home or self-care (01) | LOC: RADCTMAIN 11:09 | PROVIDERS: ATTEND Internal Medicine Hematology & Oncology | DX: Z53.9 Procedure and treatment not carried out, unspecified reason (principal) ==

== ENCOUNTER 2021-02-04 08:48 | Inpatient (IN) | payer BC ==
[2021-02-04 10:42] LABS: Albumin 3.5 g/dL (3.5-5.0); Calcium 11.4 mg/dL (8.4-10.2); Potassium 4.7 mmol/L (3.5-5.1); Total Bilirubin 0.7 mg/dL (0.2-1.3); Total Protein 5.6 g/dL (6.3-8.2)
--- NOTE | 2021-02-04 10:49 | ED ---
General Adult HPI - General Chief complaint: Shortness of Breath Stated complaint: MICKIE Time Seen by Provider: 02/04/21 09:08 Source: patient, RN notes reviewed Mode of arrival: ambulatory Limitations: no limitations - History of Present Illness Initial comments: This a 50-year-old male presents emergency Department with chief complaint of shortness breath. Patient's been having worsening symptoms over the last week or so but states he's been short of breath for one month. Patient had a CAT scan 1 week ago ordered by Dr. Monzon his oncologist. Patient states he is unsure what the results were. He denies any definite fevers or chills he has had pne umonia in the past, had COVID-19 in a very. He was started on new medication for his multiple myeloma 2 weeks ago. Patient states is very fatigued, sleeping more than usual. - Related Data Home Medications Medication Instructions Recorded Confirmed Sulfamethox-Tmp 800-160Mg [Bactrim 1 tab PO MOWEFR@0900 07/18/18 05/12/20 DS 800-160 mg] Mirtazapine [Remeron] 15 mg PO HS 07/28/18 05/12/20 HYDROcodone/APAP 7.5-325MG [[place] 1 tab PO TID PRN 02/09/20 05/12/20 7.5-325] Acyclovir [Zovirax] 400 mg PO BID 02/23/20 05/12/20 Escitalopram [Lexapro] 20 mg PO HS 02/23/20 05/12/20 HYDROmorphone [Dilaudid] 2 mg PO BID PRN 02/23/20 05/12/20 Pyridoxine HCl (Vitamin B6) 100 mg PO DAILY 02/23/20 05/12/20 [Vitamin B-6] Zolpidem [Ambien] 5 - 10 mg PO HS 02/23/20 05/12/20 Calcium 1500mg 1,500 mg PO DAILY 05/12/20 05/12/20 Omeprazole 20 mg PO DAILY 05/12/20 05/12/20 Venetoclax [Venclexta] 600 mg PO DAILY 05/12/20 05/12/20 lisinopriL [Zestril] 10 mg PO DAILY 05/12/20 05/12/20 Previous Rx's Medication Instructions Recorded Ascorbic Acid [Vitamin C] 500 mg PO DAILY #14 tab 05/16/20 Famotidine [Pepcid] 20 mg PO BID tab 05/16/20 Zinc Sulfate [Orazinc] 220 mg PO DAILY #14 cap 05/16/20 dexAMETHasone 40 mg PO MO #0 05/16/20 dexAMETHasone ORAL [Hexadrol] 6 mg PO DAILY #10 tab 05/16/20 Allergies Allergy/AdvReac Type Severity Reaction Status Date / Time morphine Allergy Itching Verified 02/04/21 09:07 Review of Systems ROS Statement: Those systems with pertinent positive or pertinent negative responses have been documented in the HPI. ROS Other: All systems not noted in ROS Statement are negative. Past Medical History Past Medical History: Cancer, Hypertension Additional Past Medical History / Comment(s): Multiple Myeloma, takes oral chemo (last taken 05/10/20) History of Any Multi-Drug Resistant Organisms: None Reported Past Surgical History: Appendectomy Additional Past Surgical History / Comment(s): Bone marrow Past Anesthesia/Blood Transfusion Reactions: No Reported Reaction Past Psychological History: No Psychological Hx Reported, Depression Smoking Status: Never smoker Past Alcohol Use History: None Reported Past Drug Use History: None Reported - Past Family History Father Family Medical History: Hypertension Mother Family Medical History: No Reported History General Exam Limitations: no limitations General appearance: alert, in no apparent distress Head exam: Present: atraumatic, normocephalic, normal inspection Eye exam: Present: normal appearance, PERRL, EOMI. Absent: scleral icterus, conjunctival injection, periorbital swelling ENT exam: Present: normal exam, normal oropharynx, mucous membranes moist Neck exam: Present: normal inspection, full ROM. Absent: tenderness, meningismus, lymphadenopathy Respiratory exam: Present: normal lung sounds bilaterally. Absent: respiratory distress, wheezes, rales, rhonchi, stridor Cardiovascular Exam: Present: regular rate, normal rhythm, normal heart sounds. Absent: systolic murmur, diastolic murmur, rubs, gallop, clicks GI/Abdominal exam: Present: soft, normal bowel sounds. Absent: distended, tenderness, guarding, rebound, rigid Course Vital Signs 02/04/21 02/04/21 09:03 11:23 Temperature 98.2 F Pulse Rate 94 84 Respiratory 18 16 Rate Blood Pressure 96/59 96/65 O2 Sat by Pulse 98 98 Oximetry EKG Findings - EKG Comments: EKG Findings:: EKG performed at 19:50 normal sinus rhythm rate of 87 RI 150 QRS 90 QT/QTC 374/450 Medical Decision Making - Medical Decision Making 50-year-old presented for dyspnea. Patient's x-ray does not show definite infiltrate. He has no leukocytosis. Patient does have mild anemia with known dysplastic disease. Patient is under current treatment. Patient's found have acute kidney injury no states that he had issues in the past in which they were discussed dialysis at that time but his kidney function returned to normal. - Lab Data Result diagrams: 02/04/21 10:02/04/21 10:04 Lab Results 02/04/21 02/04/21 02/04/21 Range/Units 10: 10: 10:04 WBC 4.7 (3.8-10.6) k/uL RBC 2.34 L (4.30-5.90) m/uL Hgb 8.8 L (13.0-17.5) gm/dL Hct 25.1 L (39.0-53.0) % MCV 107.1 H (80.0-100.0) fL MCH 37.5 H (25.0-35.0) pg MCHC 35.0 (31.0-37.0) g/dL RDW 17.0 H (11.5-15.5) % MPV 7.8 Anisocytosis Slight Macrocytosis Marked A PT 10.6 (9.0-12.0) sec INR 1.0 (<1.2) APTT 21.0 L (22.0-30.0) sec Sodium 133 L (137-145) mmol/L Potassium 4.7 (3.5-5.1) mmol/L Chloride 104 (98-107) mmol/L Carbon Dioxide 20 L (22-30) mmol/L Anion Gap 9 mmol/L BUN 56 H (9-20) mg/dL Creatinine 2.11 H (0.66-1.25) mg/dL Est GFR (CKD-EPI)AfAm 41 (>60 ml/min/1.73 sqM) Est GFR (CKD-EPI)NonAf 36 (>60 ml/min/1.73 sqM) Glucose 129 H (74-99) mg/dL Plasma Lactic Acid Edgar (0.7-2.0) mmol/L Calcium 11.4 H (8.4-10.2) mg/dL Magnesium 2.0 (1.6-2.3) mg/dL Total Bilirubin 0.7 (0.2-1.3) mg/dL AST 10 L (17-59) U/L ALT 11 (4-49) U/L Alkaline Phosphatase 64 (38-126) U/L Troponin I (0.000-0.034) ng/mL Total Protein 5.6 L (6.3-8.2) g/dL Albumin 3.5 (3.5-5.0) g/dL Coronavirus (PCR) (Not Detectd) 02/04/21 02/04/21 02/04/21 Range/Units 10:04 10:04 11:19 WBC (3.8-10.6) k/uL RBC (4.30-5.90) m/uL Hgb (13.0-17.5) gm/dL Hct (39.0-53.0) % MCV (80.0-100.0) fL MCH (25.0-35.0) pg MCHC (31.0-37.0) g/dL RDW (11.5-15.5) % MPV Anisocytosis Macrocytosis PT (9.0-12.0) sec INR (<1.2) APTT (22.0-30.0) sec Sodium (137-145) mmol/L Potassium (3.5-5.1) mmol/L Chloride (98-107) mmol/L Carbon Dioxide (22-30) mmol/L Anion Gap mmol/L BUN (9-20) mg/dL Creatinine (0.66-1.25) mg/dL Est GFR (CKD-EPI)AfAm (>60 ml/min/1.73 sqM) Est GFR (CKD-EPI)NonAf (>60 ml/min/1.73 sqM) Glucose (74-99) mg/dL Plasma Lactic Acid Edgar 1.1 (0.7-2.0) mmol/L Calcium (8.4-10.2) mg/dL Magnesium (1.6-2.3) mg/dL Total Bilirubin (0.2-1.3) mg/dL AST (17-59) U/L ALT (4-49) U/L Alkaline Phosphatase (38-126) U/L Troponin I <0.012 (0.000-0.034) ng/mL Total Protein (6.3-8.2) g/dL Albumin (3.5-5.0) g/dL Coronavirus (PCR) Not Detected (Not Detectd) Disposition Clinical Impression: Acute kidney injury, Dehydration, Dyspnea, Multiple myeloma Disposition: ADMITTED IP TO THIS HOSP Condition: Fair Referrals: Jackie Pate III, MD [Primary Care Provider] - 1-2 days
[2021-02-04 10:59] LABS: Prothrombin Time 10.6 sec (9.0-12.0)
--- NOTE | 2021-02-04 11:06 | XR ---
EXAMINATION TYPE: XR chest 2V DATE OF EXAM: 02/04/2021 COMPARISON: 01/28/2021 TECHNIQUE: PA and lateral views submitted. HISTORY: Shortness of breath FINDINGS: The lungs are clear and there is no pneumothorax, pleural effusion, or focal pneumonia. Patchy inter stitial changes are seen. Heart size stable and mildly prominent. There is some demineralization of t he right some of the osseous structures including the right clavicle and rib cage. Chronic rib deform ities are noted.. Biapical pleural thickening. IMPRESSION: 1. Correlate for interstitial pneumonitis or mild venous congestion. 2. Lucent lesions involving the osseous structures as discussed above compatible the patient's histor y of multiple myeloma..
[2021-02-04 11:30] LABS: Anisocytosis Slight; HCT 25.1 % (39.0-53.0); HGB 8.8 gm/dL (13.0-17.5); MCH 37.5 pg (25.0-35.0); MCV 107.1 fL (80.0-100.0); Macrocytosis Marked; Mean Platelet Volume 7.8; RBC 2.34 m/uL (4.30-5.90); WBC 4.7 k/uL (3.8-10.6)
[2021-02-04] MEDS ORDERED: NALOXONE 0.4 MG/ML 1 ML VIAL IV PRN (12:16)
[2021-02-04 13:15] LABS: Band Neutrophils % 3 %; Eosinophils # (M) 0.19 k/uL (0-0.7); Lymphocytes # (M) 0.71 k/uL (1.0-4.8); Monocytes # (M) 0.89 k/uL (0-1.0); Myelocytes # (M) 0.05 k/uL (0); Myelocytes % 1 %; Neutrophils % (M) 59 %; Nucleated Red Blood Cells 0 /100 WBC (0-0); Total Cells Counted 200
[2021-02-04 13:16] LABS: Polychromasia Present
[2021-02-04 13:18] LABS: Platelet Count 71 k/uL (150-450)
[2021-02-04 13:20] LABS: Reactive Lymphocytes Present
[2021-02-04] MEDS: SODIUM CHLORIDE 0.9% 1,000 ML IV SCH (13:42)
[2021-02-04] MEDS ORDERED: HYDROcodone/APAP 10-325MG 1 EACH TAB PO PRN (16:57)
[2021-02-04] MEDS ORDERED: HYDROmorphone 2 MG TAB PO PRN (16:57)
[2021-02-04] MEDS ORDERED: BUTALB/APAP/CAFF 50-325-40MG TAB PO PRN (16:57)
--- NOTE | 2021-02-04 17:59 | HP ---
HISTORY AND PHYSICAL DATE OF SERVICE: 02/04/2021 CHIEF COMPLAINT: Shortness of breath. HISTORY OF PRESENT ILLNESS: This 50-year-old gentleman with a past medical history of hypertension, history of multiple myeloma, appendectomy, bone marrow, history of depression, being followed by Dr. Pate in the outpatient setting is receiving treatment from Dr. Monzon and [facility] team. The patient was complaining of shortness of breath which is worsening for the last one week and the patient is being planned for treatment. Currently Covid 19 testing was negative. The patient had a CT angiography a couple months ago which showed some infiltrate. There is no history of fever, rigors, chills at this time. PAST MEDICAL HISTORY: History of multiple myeloma, history of appendectomy. MEDICATIONS: Medications prior to admission include home medications are reviewed and include: Zestril, dexamethasone, Norvasc, Ambien, Bactrim, omeprazole, Remeron, Dilaudid. [place], Lexapro, vitamin B12, vitamin D3, doses reviewed. ALLERGIES: MORPHINE. FAMILY HISTORY: History of hypertension in the family. SOCIAL HISTORY: Occasional alcohol intake. No history of smoking. REVIEW OF SYSTEMS: ENT: No diminished vision. No diminished hearing. CARDIOVASCULAR system: No angina or palpitations. RESPIRATORY: As mentioned earlier. GI: As mentioned earlier. : No dysuria. NERVOUS SYSTEM: No numbness, weakness. ALLERGY/IMMUNOLOGY: No asthma or hayfever. MUSCULOSKELETAL: As mentioned earlier. HEMATOLOGY/ONCOLOGY: As mentioned earlier. ENDOCRINE: No history of diabetes or hypothyroidism. CONSTITUTIONAL: As mentioned earlier. DERMATOLOGY: Negative. RHEUMATOLOGY: Negative. PSYCHIATRIC: As mentioned earlier. PHYSICAL EXAMINATION: Alert and oriented times three. Pulse 76, blood pressure 108/50. Respirations 18. Temperature 98.2. Pulse ox 100 percent on room air. HEENT: Conjunctivae normal. Oral mucosa moist. NECK is no jugular venous distention. No carotid bruit. No lymph node enlargement. CARDIOVASCULAR system: S1, S2. RESPIRATORY: Breath sounds diminished in the bases. A few scattered rhonchi and crackles. ABDOMEN: Soft, mild diffuse distention present. LEGS: No edema. No swelling. NERVOUS SYSTEM: Higher functions as mentioned earlier. Moves all four limbs. No focal deficits. LYMPHATICS: No lymph nodes palpable in the neck, axillae or groin. SKIN: No ulcer, no rashes and no bleeding. JOINTS: No active deforming arthropathy. LABS: WBC 4.7, hemoglobin is 8.8, platelets 71, and APTT 21. Sodium 133. BNP 764. Other labs are noted. Calcium is 11.4. Chest x-ray personally reviewed. ASSESSMENT: 1. Shortness of breath for evaluation, rule out interstitial pneumonia. 2. Multiple myeloma on chemotherapy. 3. Elevated creatinine with chronic kidney disease stage 3. 4. Hypercalcemia secondary to multiple myeloma. 5. Hyponatremia. 6. Anemia, macrocytic. 7. Thrombocytopenia. 8. History of previous infiltrate. 9. Elevated BNP. 10.Hypertension. 11.History of appendectomy. RECOMMENDATIONS AND DISCUSSION: In this 50-year-old gentleman who presented with multiple complex medical issues, at this time, we will monitor the patient closely. Continue the current medications, management and symptomatic treatment. We will continue with Hematology, Oncology evaluation. The patient had subtle chest x-ray changes at this time. I recommend CT scan of the chest without any contrast because of the concerns of renal failure. Otherwise Covid 19 is negative. I would recommend cultures and also initiate empiric antibiotics also. The prognosis guarded because of multiple complex medical issues. Further recommendations to follow. A copy of dictation being forwarded to Dr. Pate who is the primary physician. AVIS / JEANIE: [id number] / [email or web address]
[2021-02-04] MEDS ORDERED: POMALYST PO SCH (19:00)
--- NOTE | 2021-02-04 19:06 | CT ---
EXAMINATION TYPE: CT chest wo con DATE OF EXAM: 02/04/2021 COMPARISON: 05/12/2020 HISTORY: pneumonia CT DLP: 470.3 mGycm Automated exposure control for dose reduction was used. There is patchy bilateral groundglass interstitial infiltrates in the mid and upper lung lion. Ther e is no mediastinal adenopathy. There are no hilar masses. Heart size is normal. There is no pericard ial effusion. There is T5 vertebroplasty. There is L2 vertebroplasty. There are some sclerotic and lytic changes in the thoracic spine. This is consistent with myeloma. There are similar changes in the sternum. Upper abdominal soft tissues are intact. IMPRESSION: Patchy groundglass pulmonary interstitial infiltrates. Bony changes consistent with multiple myeloma. There is a changing pattern of lung disease compared t o old exam.
[2021-02-04] MEDS: AZITHROMYCIN 500 MG in SODIUM CHLORIDE 0.9% 250 ML IVPB SCH (19:24)
--- NOTE | 2021-02-04 20:04 | P.CONS ---
History of Present Illness - Reason for Consult Consult date: 02/04/21 Multiple Myeloma Requesting physician: Daron Gan - Chief Complaint Shortness of Breath - History of Present Illness Gordy is a 50 year old patient well known to our practice for treatment of his ongoing multiple myeloma. He has recently shown to have a major progression, which the case was further discussed with [facility] for options of CAR-T therapy, unfortunetly a waiting list of 6+ months exists so in the interim he was placed on salvage therapy with Empliciti, weekly dex and pomalyst. This was initiated on 01/24/21. He has started to notice increased fatigue, shortness of breath that is getting worse. Chest xray revealed potential interstitial pneum onitis. His creatinine has increased to greater than 2, calcium increased, there is concern of rapid progressive myeloma. We have ordered stat FLC and Electrophoresis and tumor lysis labs. Infectious work-up in progress and Dr. Monzon has spoken to Dr. De La Rosa with infectious disease regarding aytypical pneumonia. 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 No experience. No recent travel. No significant tobacco or alcohol use or recreational drug use. 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 No experience. No recent travel. No significant tobacco or alcohol use or recreational drug use. 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 Past Drug Use History: None Reported - Past Family History Father Family Medical History: Hypertension Mother Family Medical History: No Reported History Medications and Allergies Home Medications Medication Instructions Recorded Confirmed Type Sulfamethox-Tmp 800-160Mg [Bactrim 1 tab PO MOWEFR@0900 07/18/18 02/04/21 History DS 800-160 mg] Acyclovir [Zovirax] 400 mg PO BID 02/23/20 02/04/21 History Escitalopram [Lexapro] 20 mg PO HS 02/23/20 02/04/21 History HYDROmorphone [Dilaudid] 2 mg PO BID PRN 02/23/20 02/04/21 History Zolpidem [Ambien] 5 - 10 mg PO HS 02/23/20 02/04/21 History Omeprazole 20 mg PO DAILY 05/12/20 02/04/21 History Butalb/Acetaminophen/Caffeine 1 - 2 cap PO Q4HR PRN 02/04/21 02/04/21 History [Fioricet 50-300-40 mg Capsule] Cholecalciferol [Vitamin D3 (25 50 mcg PO DAILY 02/04/21 02/04/21 History Mcg = 1000 Iu)] Cyanocobalamin (Vitamin B-12) 1,000 mcg PO DAILY 02/04/21 02/04/21 History [Vitamin B-12] HYDROcodone/APAP 10-325MG [[place] 1 tab PO Q8H PRN 02/04/21 02/04/21 History 10-325] Mirtazapine [Remeron] 15 mg PO HS 02/04/21 02/04/21 History Pomalyst 4mg 4 mg PO DIRECTED 02/04/21 02/04/21 History amLODIPine [Norvasc] 10 mg PO DAILY 02/04/21 02/04/21 History dexAMETHasone 28 mg PO MO 02/04/21 02/04/21 History lisinopriL [Zestril] 20 mg PO DAILY 02/04/21 02/04/21 History Allergies Allergy/AdvReac Type Severity Reaction Status Date / Time morphine Allergy Itching Verified 02/04/21 13:04 Physical Exam Vitals: Vital Signs Temp Pulse Pulse Resp BP BP Pulse Ox 02/04/21 16:03 98 F 91 18 130/67 100 02/04/21 15:51 98.1 F 76 18 108/50 98 02/04/21 15:00 83 18 106/49 98 02/04/21 14:00 82 18 103/52 97 02/04/21 13:00 98.4 F 89 18 106/44 96 02/04/21 12:51 72 16 94/56 98 02/04/21 11:23 84 16 96/65 98 02/04/21 09:03 98.2 F 94 18 96/59 98 Intake and Output 02/04/21 02/04/21 02/04/21 06:59 14:59 22:59 Intake Total 300 Balance 300 Intake: Intake, IV Titration 300 Amount Sodium Chloride 0.9% 1, 300 000 ml @ 75 mls/hr IV . [id number] [facility] Rx#:[id number] Other: Weight 95.254 kg - Constitutional General appearance: cooperative - EENT Eyes: PERRLA ENT: NA/AT - Neck Neck: normal ROM - Respiratory Respiratory: bilateral: diminished, rales - Cardiovascular Rhythm: regular leg Peripheral Edema: bilateral: 2+ - Gastrointestinal General gastrointestinal: distended, soft - Integumentary Integumentary: pale - Neurologic Neurologic: CNII-XII intact - Musculoskeletal Musculoskeletal: generalized weakness - Psychiatric Psychiatric: A&O x's 3, appropriate affect, intact judgment & insight Results CBC & Chem 7: 02/04/21 10:04 02/04/21 10:04 Labs: Abnormal Lab Results - Last 24 Hours (Table) 02/04/21 02/04/21 02/04/21 Range/Units 10: 10: 10:04 RBC 2.34 L (4.30-5.90) m/uL Hgb 8.8 L (13.0-17.5) gm/dL Hct 25.1 L (39.0-53.0) % MCV 107.1 H (80.0-100.0) fL MCH 37.5 H (25.0-35.0) pg RDW 17.0 H (11.5-15.5) % Plt Count 71 L (150-450) k/uL Lymphocytes # (Manual) 0.71 L (1.0-4.8) k/uL Myelocytes # (Manual) 0.05 H (0) k/uL Macrocytosis Marked A APTT 21.0 L (22.0-30.0) sec Sodium 133 L (137-145) mmol/L Carbon Dioxide 20 L (22-30) mmol/L BUN 56 H (9-20) mg/dL Creatinine 2.11 H (0.66-1.25) mg/dL Glucose 129 H (74-99) mg/dL Calcium 11.4 H (8.4-10.2) mg/dL AST 10 L (17-59) U/L Total Protein 5.6 L (6.3-8.2) g/dL Chest x-ray: report reviewed Assessment and Plan (1) Acute kidney injury Current Visit: Yes Status: Acute Code(s): N17.9 - ACUTE KIDNEY FAILURE, UNSPECIFIED SNOMED Code(s): 51594177 (2) Dehydration Current Visit: Yes Status: Acute Code(s): E86.0 - DEHYDRATION SNOMED Code(s): 37900617 (3) Dyspnea Current Visit: Yes Status: Acute Code(s): R06.00 - DYSPNEA, UNSPECIFIED SNOMED Code(s): 367915034 (4) Multiple myeloma Current Visit: Yes Status: Chronic Priority: High Code(s): C90.00 - MULTIPLE MYELOMA NOT HAVING ACHIEVED REMISSION SNOMED Code(s): 942430827 (5) Anasarca Current Visit: No Status: Acute Code(s): R60.1 - GENERALIZED EDEMA SNOMED Code(s): 842729015 (6) Hypercalcemia Current Visit: No Status: Acute Priority: High Code(s): E83.52 - HYPERCALCEMIA SNOMED Code(s): 04344482 Plan: Concern is for rapidly progressive myeloma. Free light chains ordered stat!! Monitor for tumor lysis now and in am IV Hydration Monitor Renal Function Consult for Dr. De La Rosa for atypical pneumonia [facility] Cultures, FLu Swab Transfuse irradiated PRBC if hemoglobin less than 7, platelets (irradiated) less than 10 Echo and BNP Physician Attest: I have completed the full history and physical, developed the above impression and plan, I agree with above dictation, dictated as a ascribe
--- NOTE | 2021-02-04 20:28 | US ---
EXAMINATION TYPE: US kidneys/renal and bladder DATE OF EXAM: 02/04/2021 COMPARISON: NONE CLINICAL HISTORY: increased renal function. PAUL EXAM MEASUREMENTS: Right Kidney: 10.9 x 4.9 x 5.5 cm Left Kidney: 10.8 x 4.7 x 4.9 cm Right Kidney: no evidence of hydronephrosis or mass Left Kidney: somewhat lobulated, bulky appearance to lower pole Bladder: wnl Bilateral Jets seen: no IMPRESSION: No evidence of renal mass or obstruction. No evidence of a bladder mass.
[2021-02-04 20:35] LABS: Appearance,Urine Clear (Clear); Bilirubin,Urine Negative (Negative); Blood,Urine Small (Negative); Color,Urine Yellow; Glucose,Urine (UA) Negative (Negative); Hyaline Casts,Urine 1 /lpf (0-2); Ketones,Urine Negative (Negative); Leukocyte Esterase,Urine Negative (Negative); Mucus,Urine Rare /hpf; Nitrite,Urine Negative (Negative); Protein,Urine Negative (Negative); RBC,Urine <1 /hpf (0-5); Specific Gravity,Urine 1.018 (1.001-1.035); Urobilinogen,Urine <2.0 mg/dL (<2.0); WBC,Urine <1 /hpf (0-5)
[2021-02-04 20:37] LABS: Phosphorus 4.6 mg/dL (2.5-4.5); Uric Acid 10.4 mg/dL (3.5-8.5)
[2021-02-04] MEDS: HEPARIN SODIUM,PORCINE/PF 5,000 UNIT/0.5 ML SYRINGE SQ SCH (20:42)
[2021-02-04] MEDS: MIRTAZAPINE 15 MG TAB PO SCH (21:04)
[2021-02-04] MEDS: ZOLPIDEM 5 MG TAB PO SCH (21:05)
[2021-02-04] MEDS: ACYCLOVIR 200 MG CAP PO SCH (21:05)
[2021-02-04] MEDS: ESCITALOPRAM 20 MG TAB PO SCH (21:05)
[2021-02-05] MEDS: HYDROcodone/APAP 10-325MG 1 EACH TAB PO PRN ×2 (00:53→08:14)
[2021-02-05] MEDS: SODIUM CHLORIDE 0.9% 1,000 ML IV SCH ×2 (00:54→13:46)
[2021-02-05 03:51] LABS: Folate, Serum 11.8 ng/mL (4.40-31.00)
[2021-02-05 06:32] LABS: Anisocytosis Slight; HCT 23.2 % (39.0-53.0); HGB 7.9 gm/dL (13.0-17.5); MCH 38.2 pg (25.0-35.0); MCHC 33.8 g/dL (31.0-37.0); Macrocytosis Marked; Mean Platelet Volume 9.4; RBC 2.05 m/uL (4.30-5.90); RDW 17.1 % (11.5-15.5); WBC 3.3 k/uL (3.8-10.6)
[2021-02-05 06:52] LABS: MCV 113.1 fL (80.0-100.0)
[2021-02-05 06:53] LABS: Platelet Count 67 k/uL (150-450)
[2021-02-05] MEDS: CHOLECALCIFEROL 25 MCG (1000 IU) TABLET PO SCH (08:07)
[2021-02-05] MEDS: PANTOPRAZOLE 40 MG TABLET PO SCH (08:07)
[2021-02-05] MEDS: CYANOCOBALAMIN 500 MCG TAB PO SCH (08:07)
[2021-02-05] MEDS: ACYCLOVIR 200 MG CAP PO SCH ×2 (08:07→20:43)
[2021-02-05] MEDS: HEPARIN SODIUM,PORCINE/PF 5,000 UNIT/0.5 ML SYRINGE SQ SCH ×2 (08:08→20:43)
[2021-02-05 08:49] LABS: Band Neutrophils % 2 %; Eosinophils # (M) 0.17 k/uL (0-0.7); Lymphocytes # (M) 0.86 k/uL (1.0-4.8); Metamyelocytes # (M) 0.03 k/uL (0); Metamyelocytes % 1 %; Monocytes # (M) 0.36 k/uL (0-1.0); Myelocytes # (M) 0.03 k/uL (0); Myelocytes % 1 %; Neutrophils % (M) 56 %; Nucleated Red Blood Cells 0 /100 WBC (0-0); Total Cells Counted 200
[2021-02-05 08:51] LABS: Poikilocytosis (M) Present
[2021-02-05] MEDS ORDERED: lisinopriL 20 MG TAB PO SCH (09:00)
[2021-02-05] MEDS ORDERED: amLODIPine 10 MG TAB PO SCH (09:00)
[2021-02-05 09:41] LABS: Magnesium 2.1 mg/dL (1.5-2.4); Phosphorus 4.7 mg/dL (2.4-5.1); Uric Acid 10.7 mg/dL (3.7-8.7)
[2021-02-05 10:52] LABS: BUN/Creat Ratio 21.11 Ratio (12.00-20.00); Globulin 1.5 g/dL (1.6-3.3)
[2021-02-05 10:53] LABS: ALT 8 U/L (10-49); AST <5 U/L (14-35); Albumin 3.4 g/dL (3.8-4.9); Albumin/Globulin Ratio 2.37 (1.60-3.17); Alkaline Phosphatase 58 U/L (41-126); Blood Urea Nitrogen 45.8 mg/dL (9.0-27.0); Calcium 10.7 mg/dL (8.7-10.3); Chloride 105 mmol/L (96-109); Glucose 109 mg/dL (70-110); LDH 167 U/L (120-246); Non-African American GFR(CKD) 34.5 (60.0-200.0); Potassium 5.2 mmol/L (3.5-5.5); Sodium 135 mmol/L (135-145); Total Protein 4.9 g/dL (6.2-8.2)
--- NOTE | 2021-02-05 11:00 | ECHOF ---
Referral Reason:chf MEASUREMENTS -------- HEIGHT: 167.6 cm WEIGHT: 95.3 kg BP: 109/48 RVIDd: 3.4 cm (< 3.3) IVSd: 1.4 cm (0.6 - 1.1) LVIDd: 5.1 cm (3.9 - 5.3) LVPWd: 1.5 cm (0.6 - 1.1) IVSs: 2.1 cm LVIDs: 2.2 cm LVPWs: 2.0 cm LAESV Index (A-L): 40.70 ml/m Ao Diam: 3.3 cm (2.0 - 3.7) AV Cusp: 2.2 cm (1.5 - 2.6) LA Diam: 4.2 cm (2.7 - 3.8) MV EXCURSION: 20.468 mm (> 18.000) MV EF SLOPE: 76 mm/s (70 - 150) EPSS: 0.7 cm MV E Isaiah: 1.36 m/s MV DecT: 137 ms MV A Isaiah: 1.05 m/s MV E/A Ratio: 1.29 AV maxP.75 mmHg AV meanP.39 mmHg RAP: 5.00 mmHg RVSP: 33.52 mmHg FINDINGS -------- Sinus rhythm. This was a technically adequate study. The left ventricular size is normal. There is moderate concentric left ventricular hypertrophy. O verall left ventricular systolic function is normal with, an EF between 55 - 60 %. The right ventricle is mildly enlarged. LA is moderately dilated 34-39 ml/m2 The right atrial size is normal. Interatrial and interventricular septum intact. The aortic valve was not well visualized. There is no evidence of aortic regurgitation. There is mild aortic stenosis present. The maximum velocity across the aortic valve is 2.58m/s. Peak/mean gradient across the Aortic Valve is 26.75mmHg / 12.39mmHg. Kovn-yn-ksvzwqjk mitral regurgitation is present. Mild tricuspid regurgitation present. There is no evidence of pulmonary hypertension. The right v entricular systolic pressure, as measured by Doppler, is 33.52mmHg. There is no pulmonic regurgitation present. The aortic root size is normal. IVC Not well visulized. There is no pericardial effusion. CONCLUSIONS -------- 1. The left ventricular size is normal. 2. There is moderate concentric left ventricular hypertrophy. 3. Overall left ventricular systolic function is normal with, an EF between 55 - 60 %. 4. The right ventricle is mildly enlarged. 5. LA is moderately dilated 34-39 ml/m2 6. There is mild aortic stenosis present. 7. The maximum velocity across the aortic valve is 2.58m/s. 8. Peak/mean gradient across the Aortic Valve is 26.75mmHg / 12.39mmHg. 9. Fqjp-ps-sdcajbys mitral regurgitation is present. 10. Mild tricuspid regurgitation present. [employer] SCIENTIST: Thuy Ch RDCS
--- NOTE | 2021-02-05 11:21 | P.PN ---
Subjective Progress Note Date: 02/05/21 Patient still complains of feeling generally fatigued and somewhat weak. However does not appear to be obviously short of breath at rest. Oxygen saturation on room air is normal. No fever/chills/nausea/vomiting. Is complaining of increased right shoulder pain though range of motion is fairly satisfactory Objective - Vital Signs Vital signs: Vital Signs Temp 98.7 F 02/05/21 05:00 Pulse 102 H 02/05/21 05:00 Resp 20 02/05/21 05:00 BP 109/48 02/05/21 05:00 Pulse Ox 95 02/05/21 05:00 Intake & Output 02/04/21 02/05/21 02/05/21 18:59 06:59 18:59 Intake Total 300 Balance 300 Weight 95.254 kg Intake: Intake, IV Titration 300 Amount Sodium Chloride 0.9% 1, 300 000 ml @ 75 mls/hr IV . [id number] [facility] Rx#:[id number] Other: # Voids 1 - Constitutional General appearance: Present: no acute distress - EENT Eyes: Present: EOMI ENT: Present: hearing grossly normal, normal oropharynx - Respiratory Respiratory: bilateral: CTA - Cardiovascular Rhythm: regular Heart sounds: normal: S1, S2 - Gastrointestinal General gastrointestinal: Present: soft - Integumentary Integumentary: Present: normal - Neurologic Neurologic: Present: CNII-XII intact - Musculoskeletal Musculoskeletal: Present: generalized weakness, strength equal bilaterally - Psychiatric Psychiatric: Present: A&O x's 3, appropriate affect - Labs CBC & Chem 7: 02/05/21 04:43 02/05/21 04:43 Labs: Abnormal Lab Results - Last 24 Hours (Table) 02/04/21 02/04/21 02/04/21 Range/Units 10:04 10:04 18:55 WBC (3.8-10.6) k/uL RBC 2.34 L (4.30-5.90) m/uL Hgb 8.8 L (13.0-17.5) gm/dL Hct 25.1 L (39.0-53.0) % MCV 107.1 H (80.0-100.0) fL MCH 37.5 H (25.0-35.0) pg RDW 17.0 H (11.5-15.5) % Plt Count 71 L (150-450) k/uL Lymphocytes # (Manual) 0.71 L (1.0-4.8) k/uL Metamyelocytes # (Man) (0) k/uL Myelocytes # (Manual) 0.05 H (0) k/uL Macrocytosis Marked A APTT 21.0 L (22.0-30.0) sec Carbon Dioxide (21.6-31.8) mmol/L Anion Gap (4.00-12.00) mmol/L BUN (9.0-27.0) mg/dL Creatinine (0.6-1.5) mg/dL Est GFR (CKD-EPI)AfAm (60.0-200.0) Est GFR (CKD-EPI)NonAf (60.0-200.0) BUN/Creatinine Ratio (12.00-20.00) Ratio Uric Acid 10.4 H (3.5-8.5) mg/dL Calcium (8.7-10.3) mg/dL Phosphorus 4.6 H (2.5-4.5) mg/dL AST (14-35) U/L ALT (10-49) U/L Total Protein (6.2-8.2) g/dL Total Protein (PEP) (6.2-8.2) g/dL Albumin (3.8-4.9) g/dL Globulin (1.6-3.3) g/dL PTH Intact (14.0-72.0) pg/mL Urine Blood (Negative) Urine Mucus (None) /hpf CMV IgG Ab (Nonreactive) 02/04/21 02/04/21 02/04/21 Range/Units 20:30 20:30 20:30 WBC (3.8-10.6) k/uL RBC (4.30-5.90) m/uL Hgb (13.0-17.5) gm/dL Hct (39.0-53.0) % MCV (80.0-100.0) fL MCH (25.0-35.0) pg RDW (11.5-15.5) % Plt Count (150-450) k/uL Lymphocytes # (Manual) (1.0-4.8) k/uL Metamyelocytes # (Man) (0) k/uL Myelocytes # (Manual) (0) k/uL Macrocytosis APTT (22.0-30.0) sec Carbon Dioxide (21.6-31.8) mmol/L Anion Gap (4.00-12.00) mmol/L BUN (9.0-27.0) mg/dL Creatinine (0.6-1.5) mg/dL Est GFR (CKD-EPI)AfAm (60.0-200.0) Est GFR (CKD-EPI)NonAf (60.0-200.0) BUN/Creatinine Ratio (12.00-20.00) Ratio Uric Acid (3.5-8.5) mg/dL Calcium (8.7-10.3) mg/dL Phosphorus (2.5-4.5) mg/dL AST (14-35) U/L ALT (10-49) U/L Total Protein (6.2-8.2) g/dL Total Protein (PEP) 5.0 L (6.2-8.2) g/dL Albumin (3.8-4.9) g/dL Globulin (1.6-3.3) g/dL PTH Intact 9.2 L (14.0-72.0) pg/mL Urine Blood (Negative) Urine Mucus (None) /hpf CMV IgG Ab Borderline A (Nonreactive) 02/04/21 02/05/21 02/05/21 Range/Units 20:32 04:43 04:43 WBC 3.3 L (3.8-10.6) k/uL RBC 2.05 L (4.30-5.90) m/uL Hgb 7.9 L (13.0-17.5) gm/dL Hct 23.2 L (39.0-53.0) % MCV 113.1 H D (80.0-100.0) fL MCH 38.2 H (25.0-35.0) pg RDW 17.1 H (11.5-15.5) % Plt Count 67 L (150-450) k/uL Lymphocytes # (Manual) 0.86 L (1.0-4.8) k/uL Metamyelocytes # (Man) 0.03 H (0) k/uL Myelocytes # (Manual) 0.03 H (0) k/uL Macrocytosis Marked A APTT (22.0-30.0) sec Carbon Dioxide 17.0 L (21.6-31.8) mmol/L Anion Gap 12.90 H (4.00-12.00) mmol/L BUN 45.8 H (9.0-27.0) mg/dL Creatinine 2.2 H (0.6-1.5) mg/dL Est GFR (CKD-EPI)AfAm 40.0 L (60.0-200.0) Est GFR (CKD-EPI)NonAf 34.5 L (60.0-200.0) BUN/Creatinine Ratio 21.11 H (12.00-20.00) Ratio Uric Acid 10.7 H (3.5-8.5) mg/dL Calcium 10.7 H (8.7-10.3) mg/dL Phosphorus (2.5-4.5) mg/dL AST <5 L (14-35) U/L ALT 8 L (10-49) U/L Total Protein 4.9 L (6.2-8.2) g/dL Total Protein (PEP) (6.2-8.2) g/dL Albumin 3.4 L (3.8-4.9) g/dL Globulin 1.5 L (1.6-3.3) g/dL PTH Intact (14.0-72.0) pg/mL Urine Blood Small H (Negative) Urine Mucus Rare H (None) /hpf CMV IgG Ab (Nonreactive) Microbiology - Last 24 Hours (Table) 02/04/21 20:32 Urine Culture - Preliminary Urine,Voided Assessment and Plan (1) Dyspnea Narrative/Plan: The patient's computed tomography scan of the chest again shows bilateral scattered interstitial opacities. He does not mention of these are substantially different from CT angiogram done a week ago. The patient has no fever or cough. However he does appear improved clinically in terms of work of breathing at rest compared to about a week ago. His oxygen saturation on room air is also fairly normal. - At this time fluid overload appears to be unlikely as the patient did not res pond to Lasix in the outpatient setting. He is actually been getting IV hydration here and respiratory status has gotten better. CT angiogram last week was negative for PE. - The main concern therefore, in my opinion would be trying infectious pneumonia, with an atypical presentation, given the patient's immune compromise. He was started on Rocephin and azithromycin, and does appear clinically improved. He is continuing on Bactrim for PCP prophylaxis and acyclovir. ID has been consulted. Await further input from them. If respiratory status does not improve or worsens, consider pulmonary consult for bronchoscopy, if there does not appear to be any other etiologies Current Visit: Yes Status: Acute Code(s): R06.00 - DYSPNEA, UNSPECIFIED SNOMED Code(s): 902570505 (2) Acute kidney injury Narrative/Plan: The etiology at this time is not totally clear. The patient's labs show elevated uric acid, raising the possibility of tumor lysis syndrome as he does have progressive myeloma and has just started a new therapy. Calcium levels were also elevated. Therefore renal damage from myeloma progression itself is also possibility. - Continue IV hydration - Nephrology consult has been placed - Treat for tumor lysis with rasburicase - IV bisphosphonate for hypercalcemia - Await restaging myeloma labs. If the patient has evidence of progressive end organ damage due to myeloma progression itself, then he may need more aggressive measures temporarily to reduce light chain levels such as pheresis or high-dose chemotherapy. Current Visit: Yes Status: Acute Code(s): N17.9 - ACUTE KIDNEY FAILURE, UNSPECIFIED SNOMED Code(s): 46611250 (3) Multiple myeloma Narrative/Plan: The patient recently showed rapid progression on his prior regimen. He has been switched over to a new regimen, Pomalyst and Elotuzumab. He has just been on this regimen for about 2 weeks. Awaiting restaging myeloma labs. I had a detailed discussion with the patient and his . Even if his numbers are currently rising, it does not mean that regimen is ineffective, as the patient has not been on it long enough. In addition initially given if the regimen is effective, the light chain levels may go up because of increased release from cell killing. Therefore the plan would be to continue the current regimen. If the patient does need an acute intervention to reduce light chains such as plasmapheresis or high-dose chemotherapy, the plan would be to place him back on this regimen afterwards. - Continue, Pomalyst inpt Current Visit: Yes Status: Chronic Priority: High Code(s): C90.00 - MULTIPLE MYELOMA NOT HAVING ACHIEVED REMISSION SNOMED Code(s): 564181692
[2021-02-05] MEDS ORDERED: RASBURICASE 6 MG in SODIUM CHLORIDE 0.9% 46 ML IV ONE (11:30)
[2021-02-05] MEDS ORDERED: SODIUM CHLORIDE 0.9% 250 ML with PAMIDRONATE 30 MG IV ONE ×2 (12:00)
--- NOTE | 2021-02-05 13:24 | CONS ---
CONSULTATION REASON FOR CONSULT: Renal failure. HISTORY OF PRESENT ILLNESS: Patient is a 50-year-old male with history of multiple myeloma with recent progression and admitted to the hospital for further treatment. He also had some shortness of breath and increased fatigue. Chest x-ray showed bilateral lung infiltrates with suspicion for possible underlying atypical pneumonia. Patient also had a chest CT scan done. This was done without contrast, which showed bilateral ground-glass infiltrates. There is no previous history of kidney diseases. Patient was noted to have a serum creatinine of 2.1. It is up to 2.2 today. Previous creatinine 0.9 on 01/28/2021. Patient denies use of any nonsteroidal anti-inflammatory agents prior to admission. He had been maintained on NICK inhibitors, which are currently on hold. He was also on Bactrim. Currently patient states that he is voiding. No urinary symptoms noted. His calcium was elevated at 11.4, currently down to 10.7. It has been as high as 16.6 on 02/23/2020. PAST MEDICAL HISTORY: Significant for multiple myeloma, hypertension. PAST SURGICAL HISTORY: Appendectomy, bone marrow transplant, which failed. SOCIAL HISTORY: Negative for smoking, drug abuse or alcohol abuse. MEDICATIONS: Medications prior to admission included Bactrim, Zovirax, Lexapro, Dilaudid, Ambien, omeprazole, vitamin D, [place], Norvasc, dexamethasone, Zestril. ALLERGIES: ALLERGIES include MORPHINE, which causes itching. REVIEW OF SYSTEMS: As per HPI. Other systems negative. PHYSICAL EXAMINATION: Patient is comfortable, awake, not in any acute distress. Blood pressure 104/52, heart rate 90 per minute. Repeat blood pressure this afternoon was 74/42. EXAMINATION OF THE HEART: S1 and S2. EXAMINATION OF LUNGS: Bilateral breath sounds are heard. Abdomen is soft, non-tender. Examination of lower extremities shows trace edema bilaterally. CUSTOMER SERVICE ADVISOR exam is grossly intact. LABS: Sodium 135, potassium 5.2, chloride 105. CO2 is 17, BUN of 45, serum creatinine 2.2 mg/dL. ASSESSMENT: 1. Acute kidney injury, mostly prerenal and secondary to hypotension and hypoperfusion, in the setting of use of NICK inhibitors. Currently nonoliguric. UA is fairly benign and ultrasound done yesterday shows no significant hydronephrosis or major abnormalities. I will discontinue the Zestril. We will continue with IV hydration for now. The hypercalcemia has definitely also contributed to the acute kidney injury. There is concern for tumor lysis syndrome with initiation of therapy again for multiple myeloma. Free light chains have been ordered. 2. Mild hyperkalemia associated with acute kidney injury, metabolic acidosis. 3. Hypercalcemia associated with multiple myeloma, status post pamidronate, currently improving. Continue with saline as well. 4. Multiple myeloma with progression, started on chemotherapy. 5. Bilateral lung infiltrates; possible underlying atypical pneumonia. Doubt significant volume overload. 6. Possible tumor lysis syndrome. PLAN: Continue with IV fluids and discontinue Zestril. Add midodrine if blood pressure remains low. Avoid nephrotoxic agents. Okay to continue the Bactrim for now. Repeat labs in a.m. I will discontinue the Norvasc also, as blood pressure remains low. Thank you for the consultation. Will continue to follow the patient with you during his hospitalization. MMODL / IJN: [id number] /
--- NOTE | 2021-02-05 15:07 | US ---
EXAMINATION TYPE: US carotid duplex BILAT DATE OF EXAM: 02/05/2021 COMPARISON: NONE CLINICAL HISTORY: BP different in each arm. over 50mmHg difference from right to left arm EXAM MEASUREMENTS: RIGHT: Peak Systolic Velocity (PSV) cm/sec ----- Right CCA: 201 ----- Right ICA: 215 ----- Right ECA: 354 ICA/CCA ratio: 1.0 RIGHT: End Diastole cm/sec ----- Right CCA: 28.7 ----- Right ICA: 32.8 ----- Right ECA: 0.0 LEFT: Peak Systolic Velocity (PSV) cm/sec ----- Left CCA: 240 ----- Left ICA: 275 ----- Left ECA: 182 ICA/CCA ratio: 1.1 LEFT: End Diastole cm/sec ----- Left CCA: 34.4 ----- Left ICA: 27.3 ----- Left ECA: 0.0 VERTEBRALS (direction of flow): Right Vertebral: Antegrade Left Vertebral: Antegrade Rhythm: Normal Increased velocities seen throughout scan bilaterally, no stenosis seen. IMPRESSION: There is bilateral elevated velocities in the carotid arteries but no luminal narrowing identified. T he images and measurements suggest less than 20% stenosis in both internal carotid arteries. There is antegrade flow in the vertebral arteries. Criteria for Assigning % of Stenosis / Diameter reduction (Estimation based on the indirect measurements of the internal carotid artery velocities (ICA PSV). 1. Normal (no stenosis)=ICA PSV < 125 cm/s: ratio < 2.0: ICA EDV<40 cm/s. 2. Less than 50% stenosis=ICA PSV < 125 cm/s: ratio < 2.0: ICA EDV<40 cm/s. 3. 50 to 69% stenosis=ICA PSV of 125 to 230 cm/s: ration 2.0 ? 4.0: ICA EDV 40-100 cm/s. 4. Greater than 70% stenosis to near occlusion= ICA PSV > 230 cm/s: ratio > 4.0: ICA EDV > 100 cm/s. 5. Near occlusion= ICA PSV velocities may be low or undetectable: variable ratio and ICA EDV. 6. Total occlusion=unable to detect flow.
--- NOTE | 2021-02-05 15:39 | PN ---
PROGRESS NOTE DATE OF SERVICE: 02/05/2021 This 50-year-old gentleman admitted with shortness of breath had possible acute bilateral interstitial pneumonia. The patient had previous COVID vaccination with J and J vaccine, and the patient also had episodes of COVID also early this year. The patient was started on broad-spectrum IV antibiotics. The patient is improving significantly. Multiple consultants are following the patient closely. The patient also had renal failure. The creatinine is 2.2 today, which is rather stable. Multiple consultants are following the patient, including Dr. Monzon, with whom I discussed the case at length. Cultures are negative and CMV IgG is borderline. Influenza is negative. Past medical history reviewed. The patient also is complaining of right arm pain, and some blood pressure difference, about 20 systolic, between the right arm and left arm. REVIEW OF SYSTEMS: CARDIOVASCULAR: No angina, palpitations. RESPIRATORY SYSTEM: As mentioned earlier. GI: As mentioned earlier. : No dysuria. NERVOUS SYSTEM: No numbness, weakness. CURRENT MEDICATIONS: Reviewed. They include Fioricet, [place], Zovirax, Zithromax, Rocephin, Hexadrol, Protonix. Rest of the medication and doses are reviewed. PHYSICAL EXAMINATION: Patient alert and oriented x3. Pulse 90, blood pressure 104/52, respirations 16, temperature 98.6, pulse ox 94% on room air. HEENT: Conjunctivae pale. NECK: No jugular venous distention. CARDIOVASCULAR: S1, S2 muffled. RESPIRATION: Breath sounds diminished at the bases. Bilateral scattered rhonchi and crackles. ABDOMEN: Soft, nontender. LEGS: No edema. No swelling. NERVOUS SYSTEM: No focal deficit. LABS: WBC 3.3, hemoglobin 7.9. MCV noted. Other labs are reviewed. ASSESSMENT: 1. Shortness of breath; possibly bilateral acute interstitial pneumonia, possibly viral pneumonia with sepsis, present on admission. 2. Multiple myeloma, on chemotherapy. 3. Right arm pain. Rule out claudication and vascular occlusion. 4. Elevated creatinine. Chronic kidney disease, stage 3. 5. Hypercalcemia secondary to multiple myeloma. 6. Hyponatremia. 7. Anemia, macrocytic. 8. Thrombocytopenia. 9. History of previous infiltrates. 10.Elevated BNP. 11.Hypertension. 12.History of appendectomy. 13.Hyperuricemia. RECOMMENDATIONS AND DISCUSSION: I recommend to continue current medications, continue with symptomatic treatment. Compared to the recent CT angio, the patient has significant bilateral lesions of interstitial pneumonia, which is rather suggestive of COVID-19, but COVID-19 is negative. Moreover, the patient has taken the vaccine, also. I would recommend continuing with IV antibiotics, on which the patient has made some significant improvement. Will order Mycoplasma and Legionella serology and urine testing also. Uric acid is elevated. Today's calcium is 10.7. Dr. Monzon is following the patient closely and as mentioned, infectious disease consult also has been sought. The prognosis is extremely guarded because of multiple complex medical conditions. Further recommendations to follow. Discussed with the patient. We will also get vascular surgery evaluation. See orders for further details. MMODL / IJN: [id number] /
--- NOTE | 2021-02-05 17:16 | P.GSCN ---
History of Present Illness Consult date: 02/05/21 Reason for Consult: Subclavian artery stenosis. History of present illness: Patient is a 50-year-old male with extensive medical history including multiple months myeloma who was found to have a proximal a 40 mm gradient and systolic blood pressure between the left and right upper extremities. The right lower extremities proximal a 40 mmHg lower than the contralateral side. The patient has no history of upper extremity claudication. He is complaining of chronic shoulder a discomfort however this is not associated with physical activity anymore then resting quietly. Carotid duplex was performed today to evaluate for the possibility of subclavian steal syndrome. 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 No experience. No recent travel. No significant tobacco or alcohol use or recreational drug use. 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 No experience. No recent travel. No significant tobacco or alcohol use or recreational drug use. 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 Past Drug Use History: None Reported - Past Family History Father Family Medical History: Hypertension Mother Family Medical History: No Reported History Medications and Allergies Home Medications Medication Instructions Recorded Confirmed Type Sulfamethox-Tmp 800-160Mg [Bactrim 1 tab PO MOWEFR@0900 07/18/18 02/04/21 History DS 800-160 mg] Acyclovir [Zovirax] 400 mg PO BID 02/23/20 02/04/21 History Escitalopram [Lexapro] 20 mg PO HS 02/23/20 02/04/21 History HYDROmorphone [Dilaudid] 2 mg PO BID PRN 02/23/20 02/04/21 History Zolpidem [Ambien] 5 - 10 mg PO HS 02/23/20 02/04/21 History Omeprazole 20 mg PO DAILY 05/12/20 02/04/21 History Butalb/Acetaminophen/Caffeine 1 - 2 cap PO Q4HR PRN 02/04/21 02/04/21 History [Fioricet 50-300-40 mg Capsule] Cholecalciferol [Vitamin D3 (25 50 mcg PO DAILY 02/04/21 02/04/21 History Mcg = 1000 Iu)] Cyanocobalamin (Vitamin B-12) 1,000 mcg PO DAILY 02/04/21 02/04/21 History [Vitamin B-12] HYDROcodone/APAP 10-325MG [[place] 1 tab PO Q8H PRN 02/04/21 02/04/21 History 10-325] Mirtazapine [Remeron] 15 mg PO HS 02/04/21 02/04/21 History Pomalyst 4mg 4 mg PO DIRECTED 02/04/21 02/04/21 History amLODIPine [Norvasc] 10 mg PO DAILY 02/04/21 02/04/21 History dexAMETHasone 28 mg PO MO 02/04/21 02/04/21 History lisinopriL [Zestril] 20 mg PO DAILY 02/04/21 02/04/21 History Allergies Allergy/AdvReac Type Severity Reaction Status Date / Time morphine Allergy Itching Verified 02/04/21 13:04 Surgical - Exam Osteopathic Statement: *. No significant issues noted on an osteopathic structural exam other than those noted in the History and Physical/Consult. Vital Signs Temp Pulse Resp BP Pulse Ox 98.2 F 94 18 96/59 98 02/04/21 09:03 02/04/21 09:03 02/04/21 09:03 02/04/21 09:03 02/04/21 09:03 Axillary, brachial and radial pulses are intact bilaterally. There is no arm edema noted either lower extremity. Femoral, popliteal, DP and PT pulses are intact bilaterally. Manually obtained blood pressure demonstrates a 40 mm gradient and systolic pressure between the right and left upper extremities with the right lower extremity being the lower value. Results Carotid duplex exam fails to demonstrate any evidence of subclavian steal syndrome as both vertebral arteries have flow in the normal antegrade direction per - Labs 02/05/21 04:43 02/05/21 04:43 Abnormal Lab Results - Last 24 Hours (Table) 02/04/21 02/04/21 02/04/21 Range/Units 18:55 20:30 20:30 WBC (3.8-10.6) k/uL RBC (4.30-5.90) m/uL Hgb (13.0-17.5) gm/dL Hct (39.0-53.0) % MCV (80.0-100.0) fL MCH (25.0-35.0) pg RDW (11.5-15.5) % Plt Count (150-450) k/uL Lymphocytes # (Manual) (1.0-4.8) k/uL Metamyelocytes # (Man) (0) k/uL Myelocytes # (Manual) (0) k/uL Macrocytosis Carbon Dioxide (21.6-31.8) mmol/L Anion Gap (4.00-12.00) mmol/L BUN (9.0-27.0) mg/dL Creatinine (0.6-1.5) mg/dL Est GFR (CKD-EPI)AfAm (60.0-200.0) Est GFR (CKD-EPI)NonAf (60.0-200.0) BUN/Creatinine Ratio (12.00-20.00) Ratio Uric Acid 10.4 H (3.5-8.5) mg/dL Calcium (8.7-10.3) mg/dL Phosphorus 4.6 H (2.5-4.5) mg/dL AST (14-35) U/L ALT (10-49) U/L Total Protein (6.2-8.2) g/dL Total Protein (PEP) 5.0 L (6.2-8.2) g/dL Albumin (3.8-4.9) g/dL Globulin (1.6-3.3) g/dL PTH Intact (14.0-72.0) pg/mL Urine Blood (Negative) Urine Mucus (None) /hpf CMV IgG Ab Borderline A (Nonreactive) 02/04/21 02/04/21 02/05/21 Range/Units 20:30 20:32 04:43 WBC 3.3 L (3.8-10.6) k/uL RBC 2.05 L (4.30-5.90) m/uL Hgb 7.9 L (13.0-17.5) gm/dL Hct 23.2 L (39.0-53.0) % MCV 113.1 H D (80.0-100.0) fL MCH 38.2 H (25.0-35.0) pg RDW 17.1 H (11.5-15.5) % Plt Count 67 L (150-450) k/uL Lymphocytes # (Manual) 0.86 L (1.0-4.8) k/uL Metamyelocytes # (Man) 0.03 H (0) k/uL Myelocytes # (Manual) 0.03 H (0) k/uL Macrocytosis Marked A Carbon Dioxide (21.6-31.8) mmol/L Anion Gap (4.00-12.00) mmol/L BUN (9.0-27.0) mg/dL Creatinine (0.6-1.5) mg/dL Est GFR (CKD-EPI)AfAm (60.0-200.0) Est GFR (CKD-EPI)NonAf (60.0-200.0) BUN/Creatinine Ratio (12.00-20.00) Ratio Uric Acid (3.5-8.5) mg/dL Calcium (8.7-10.3) mg/dL Phosphorus (2.5-4.5) mg/dL AST (14-35) U/L ALT (10-49) U/L Total Protein (6.2-8.2) g/dL Total Protein (PEP) (6.2-8.2) g/dL Albumin (3.8-4.9) g/dL Globulin (1.6-3.3) g/dL PTH Intact 9.2 L (14.0-72.0) pg/mL Urine Blood Small H (Negative) Urine Mucus Rare H (None) /hpf CMV IgG Ab (Nonreactive) 02/05/21 Range/Units 04:43 WBC (3.8-10.6) k/uL RBC (4.30-5.90) m/uL Hgb (13.0-17.5) gm/dL Hct (39.0-53.0) % MCV (80.0-100.0) fL MCH (25.0-35.0) pg RDW (11.5-15.5) % Plt Count (150-450) k/uL Lymphocytes # (Manual) (1.0-4.8) k/uL Metamyelocytes # (Man) (0) k/uL Myelocytes # (Manual) (0) k/uL Macrocytosis Carbon Dioxide 17.0 L (21.6-31.8) mmol/L Anion Gap 12.90 H (4.00-12.00) mmol/L BUN 45.8 H (9.0-27.0) mg/dL Creatinine 2.2 H (0.6-1.5) mg/dL Est GFR (CKD-EPI)AfAm 40.0 L (60.0-200.0) Est GFR (CKD-EPI)NonAf 34.5 L (60.0-200.0) BUN/Creatinine Ratio 21.11 H (12.00-20.00) Ratio Uric Acid 10.7 H (3.5-8.5) mg/dL Calcium 10.7 H (8.7-10.3) mg/dL Phosphorus (2.5-4.5) mg/dL AST <5 L (14-35) U/L ALT 8 L (10-49) U/L Total Protein 4.9 L (6.2-8.2) g/dL Total Protein (PEP) (6.2-8.2) g/dL Albumin 3.4 L (3.8-4.9) g/dL Globulin 1.5 L (1.6-3.3) g/dL PTH Intact (14.0-72.0) pg/mL Urine Blood (Negative) Urine Mucus (None) /hpf CMV IgG Ab (Nonreactive) Microbiology - Last 24 Hours (Table) 02/04/21 20:32 Urine Culture - Preliminary Urine,Voided Diabetes panel 02/05/21 Range/Units 04:43 Sodium 135 (135-145) mmol/L Potassium 5.2 (3.5-5.5) mmol/L Chloride 105 (96-109) mmol/L Carbon Dioxide 17.0 L (21.6-31.8) mmol/L BUN 45.8 H (9.0-27.0) mg/dL Creatinine 2.2 H (0.6-1.5) mg/dL Glucose 109 (70-110) mg/dL Calcium 10.7 H (8.7-10.3) mg/dL AST <5 L (14-35) U/L ALT 8 L (10-49) U/L Alkaline Phosphatase 58 (41-126) U/L Total Protein 4.9 L (6.2-8.2) g/dL Albumin 3.4 L (3.8-4.9) g/dL Thyroid panel 02/04/21 Range/Units 18:55 TSH 2.030 (0.465-4.680) mIU/L Calcium panel 02/04/21 02/05/21 Range/Units 18:55 04:43 Calcium 10.7 H (8.7-10.3) mg/dL Phosphorus 4.6 H 4.7 (2.5-4.5) mg/dL Albumin 3.4 L (3.8-4.9) g/dL Pituitary panel 02/04/21 02/05/21 Range/Units 18:55 04:43 Sodium 135 (135-145) mmol/L Potassium 5.2 (3.5-5.5) mmol/L Chloride 105 (96-109) mmol/L Carbon Dioxide 17.0 L (21.6-31.8) mmol/L BUN 45.8 H (9.0-27.0) mg/dL Creatinine 2.2 H (0.6-1.5) mg/dL Glucose 109 (70-110) mg/dL Calcium 10.7 H (8.7-10.3) mg/dL TSH 2.030 (0.465-4.680) mIU/L Adrenal panel 02/05/21 Range/Units 04:43 Sodium 135 (135-145) mmol/L Potassium 5.2 (3.5-5.5) mmol/L Chloride 105 (96-109) mmol/L Carbon Dioxide 17.0 L (21.6-31.8) mmol/L BUN 45.8 H (9.0-27.0) mg/dL Creatinine 2.2 H (0.6-1.5) mg/dL Glucose 109 (70-110) mg/dL Calcium 10.7 H (8.7-10.3) mg/dL Total Bilirubin 0.40 (0.30-1.20) mg/dL AST <5 L (14-35) U/L ALT 8 L (10-49) U/L Alkaline Phosphatase 58 (41-126) U/L Total Protein 4.9 L (6.2-8.2) g/dL Albumin 3.4 L (3.8-4.9) g/dL Assessment and Plan Assessment: #1:40 mmHg gradient systolic blood pressure difference between the right and left upper extremities, currently asymptomatic. #2: Multiple medical problems. Plan: The patient is currently asymptomatic and is facing other medical challenges currently. No intervention from a vascular surgical standpoint is warranted at this time. I discussed with the patient that I be more than happy to reevaluate him in the future on an as-needed basis. All questions were answered to patient's satisfaction per
[2021-02-05] MEDS: AZITHROMYCIN 500 MG in SODIUM CHLORIDE 0.9% 250 ML IVPB SCH (18:02)
[2021-02-05] MEDS: POMALYST PO SCH (18:10)
[2021-02-05] MEDS: MIRTAZAPINE 15 MG TAB PO SCH (20:43)
[2021-02-05] MEDS: ESCITALOPRAM 20 MG TAB PO SCH (20:43)
[2021-02-05] MEDS: ZOLPIDEM 5 MG TAB PO SCH (20:43)
--- NOTE | 2021-02-05 23:39 | P.CONS ---
History of Present Illness - Reason for Consult Consult date: 02/05/21 pneumonia Requesting physician: Divina Rios - Chief Complaint shortness of breath x 1 month - History of Present Illness History of present illness : Patient is 50-year-old male with a past medical history significant for multiple myeloma for the patient is on ch emotherapy presenting to the ER complaining of increasing shortness of breath that has been going on for almost a month now patient denies having any fever or any chills, the patient denies having any chest pain or cough no URI symptoms patient denies any nausea no vomiting no abdominal pain or any diarrhea patient on presentation the hospital was afebrile and no fever has been recorded subsequently patient did have a normal white count presentation this morning he did have mild leukopenia as well as lymphopenia patient did have elevated BUN and creatinine uric acid has been elevated liver enzymes are normal urine has been negative jimenez PCR was negative patient did have a chest x-ray correlate for interstitial pneumonitis or mild venous congestion he did have a CT of the chest patchy groundglass pulmonary interstitial infiltrate infectious disease was consulted with concern for pneumonia currently being treated with Rocephin and Zithromax Review of system: CONSTITUTIONAL: Positive for weakness denies fever. EYES: No complaint. ENT: No complaint. RESPIRATORY: As per history of present illness CARDIOVASCULAR: No complaint. GENITOURINARY: No complaint. GASTROINTESTINAL: No complaint. MUSCULOSKELETAL: No complaint. INTEGUMENTARY: No complaint. PSYCHOLOGIC: No complaint. ENDOCRINE: No complaint. NEUROLOGIC: No complaint. Past medical history : Reviewed, documented below Past surgical history : Reviewed, documented below Social history: Reviewed, documented below Medications: Reviewed, as documented below EXAMINATION: Vital sigans= Reviewed and documented below GENERAL DESCRIPTION: Middle-aged male lying in bed, no distress. No tachypnea or accessory muscle of respiration use. HEENT: Shows Pallor , no scleral icterus. Oral mucous membrane is dry. NECK: Trachea central, no thyromegaly. LUNGS: Unlabored breathing. Decrease intensity of breath sounds. No wheeze or crackle. HEART: S1, S2, regular rate and rhythm. ABDOMEN: Soft, no tenderness , guarding or rigidity EXTREMITIES: No edema of feet. SKIN: No rash, no masses palpable. NEUROLOGICAL: The patient is awake, alert, oriented x3, mood and affect normal. LABS AND RADIOLOGY: Reviewed results see below Assessment : Patient presented to hospital with shortness of breath that has been going on for almost 1 month and this patient who did not have any fever do not have any cough or sputum production did not have any elevated white count with evidence of groundglass opacity on the CT questionably medication effect versus cardiac etiology for the interstitial edema is clinically not behaving as pneumonia Plan: 1-we will obtain CRP procalcitonin urine for Legionella antigen and check a proBNP 2-May continue Rocephin and Zithromax while waiting for the work-up to finalize We will follow on clinical condition and cultures to further adjust medication if needed Thank you for this consultation we will follow the patient along with you Past Medical History Past Medical History: Cancer, Hypertension Additional Past Medical History / Comment(s): Multiple Myeloma, takes oral chemo (last taken 05/10/20) History of Any Multi-Drug Resistant Organisms: None Reported Past Surgical History: Appendectomy 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 No experience. No recent travel. No significant tobacco or alcohol use or recreational drug use. 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 No experience. No recent travel. No significant tobacco or alcohol use or recreational drug use. 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 Past Drug Use History: None Reported - Past Family History Father Family Medical History: Hypertension Mother Family Medical History: No Reported History Medications and Allergies Home Medications Medication Instructions Recorded Confirmed Type Sulfamethox-Tmp 800-160Mg [Bactrim 1 tab PO MOWEFR@0900 07/18/18 02/04/21 History DS 800-160 mg] Acyclovir [Zovirax] 400 mg PO BID 02/23/20 02/04/21 History Escitalopram [Lexapro] 20 mg PO HS 02/23/20 02/04/21 History HYDROmorphone [Dilaudid] 2 mg PO BID PRN 02/23/20 02/04/21 History Zolpidem [Ambien] 5 - 10 mg PO HS 02/23/20 02/04/21 History Omeprazole 20 mg PO DAILY 05/12/20 02/04/21 History Butalb/Acetaminophen/Caffeine 1 - 2 cap PO Q4HR PRN 02/04/21 02/04/21 History [Fioricet 50-300-40 mg Capsule] Cholecalciferol [Vitamin D3 (25 50 mcg PO DAILY 02/04/21 02/04/21 History Mcg = 1000 Iu)] Cyanocobalamin (Vitamin B-12) 1,000 mcg PO DAILY 02/04/21 02/04/21 History [Vitamin B-12] HYDROcodone/APAP 10-325MG [[place] 1 tab PO Q8H PRN 02/04/21 02/04/21 History 10-325] Mirtazapine [Remeron] 15 mg PO HS 02/04/21 02/04/21 History Pomalyst 4mg 4 mg PO DIRECTED 02/04/21 02/04/21 History amLODIPine [Norvasc] 10 mg PO DAILY 02/04/21 02/04/21 History dexAMETHasone 28 mg PO MO 02/04/21 02/04/21 History lisinopriL [Zestril] 20 mg PO DAILY 02/04/21 02/04/21 History Allergies Allergy/AdvReac Type Severity Reaction Status Date / Time morphine Allergy Itching Verified 02/04/21 13:04 Physical Exam Vitals: Vital Signs Temp Pulse Pulse Resp BP BP BP 02/05/21 13:20 140/68 90/58 02/05/21 12:23 74/42 02/05/21 11:37 98.7 F 90 16 104/52 02/05/21 08:00 90 16 02/05/21 05:00 98.7 F 102 H 20 109/48 02/04/21 21:00 98.8 F 94 20 105/57 02/04/21 16:03 98 F 91 18 130/67 02/04/21 15:51 98.1 F 76 18 108/50 02/04/21 15:00 83 18 106/49 02/04/21 14:00 82 18 103/52 Pulse Ox 02/05/21 13:20 02/05/21 12:23 02/05/21 11:37 95 10/16/21 08:00 02/05/21 05:00 95 02/04/21 21:00 97 02/04/21 16:03 100 02/04/21 15:51 98 02/04/21 15:00 98 02/04/21 14:00 97 Intake and Output 02/04/21 02/05/21 02/05/21 22:59 06:59 14:59 Intake Total 300 Balance 300 Intake: Intake, IV Titration 300 Amount Sodium Chloride 0.9% 1, 300 000 ml @ 75 mls/hr IV . [id number] [facility] Rx#:[id number] Other: # Voids 1 1 1 Results CBC & Chem 7: 02/05/21 04:43 02/05/21 04:43 Labs: Abnormal Lab Results - Last 24 Hours (Table) 02/04/21 02/04/21 02/04/21 Range/Units 18:55 20:30 20:30 WBC (3.8-10.6) k/uL RBC (4.30-5.90) m/uL Hgb (13.0-17.5) gm/dL Hct (39.0-53.0) % MCV (80.0-100.0) fL MCH (25.0-35.0) pg RDW (11.5-15.5) % Plt Count (150-450) k/uL Lymphocytes # (Manual) (1.0-4.8) k/uL Metamyelocytes # (Man) (0) k/uL Myelocytes # (Manual) (0) k/uL Macrocytosis Carbon Dioxide (21.6-31.8) mmol/L Anion Gap (4.00-12.00) mmol/L BUN (9.0-27.0) mg/dL Creatinine (0.6-1.5) mg/dL Est GFR (CKD-EPI)AfAm (60.0-200.0) Est GFR (CKD-EPI)NonAf (60.0-200.0) BUN/Creatinine Ratio (12.00-20.00) Ratio Uric Acid 10.4 H (3.5-8.5) mg/dL Calcium (8.7-10.3) mg/dL Phosphorus 4.6 H (2.5-4.5) mg/dL AST (14-35) U/L ALT (10-49) U/L Total Protein (6.2-8.2) g/dL Total Protein (PEP) 5.0 L (6.2-8.2) g/dL Albumin (3.8-4.9) g/dL Globulin (1.6-3.3) g/dL PTH Intact (14.0-72.0) pg/mL Urine Blood (Negative) Urine Mucus (None) /hpf CMV IgG Ab Borderline A (Nonreactive) 02/04/21 02/04/21 02/05/21 Range/Units 20:30 20:32 04:43 WBC 3.3 L (3.8-10.6) k/uL RBC 2.05 L (4.30-5.90) m/uL Hgb 7.9 L (13.0-17.5) gm/dL Hct 23.2 L (39.0-53.0) % MCV 113.1 H D (80.0-100.0) fL MCH 38.2 H (25.0-35.0) pg RDW 17.1 H (11.5-15.5) % Plt Count 67 L (150-450) k/uL Lymphocytes # (Manual) 0.86 L (1.0-4.8) k/uL Metamyelocytes # (Man) 0.03 H (0) k/uL Myelocytes # (Manual) 0.03 H (0) k/uL Macrocytosis Marked A Carbon Dioxide (21.6-31.8) mmol/L Anion Gap (4.00-12.00) mmol/L BUN (9.0-27.0) mg/dL Creatinine (0.6-1.5) mg/dL Est GFR (CKD-EPI)AfAm (60.0-200.0) Est GFR (CKD-EPI)NonAf (60.0-200.0) BUN/Creatinine Ratio (12.00-20.00) Ratio Uric Acid (3.5-8.5) mg/dL Calcium (8.7-10.3) mg/dL Phosphorus (2.5-4.5) mg/dL AST (14-35) U/L ALT (10-49) U/L Total Protein (6.2-8.2) g/dL Total Protein (PEP) (6.2-8.2) g/dL Albumin (3.8-4.9) g/dL Globulin (1.6-3.3) g/dL PTH Intact 9.2 L (14.0-72.0) pg/mL Urine Blood Small H (Negative) Urine Mucus Rare H (None) /hpf CMV IgG Ab (Nonreactive) 02/05/21 Range/Units 04:43 WBC (3.8-10.6) k/uL RBC (4.30-5.90) m/uL Hgb (13.0-17.5) gm/dL Hct (39.0-53.0) % MCV (80.0-100.0) fL MCH (25.0-35.0) pg RDW (11.5-15.5) % Plt Count (150-450) k/uL Lymphocytes # (Manual) (1.0-4.8) k/uL Metamyelocytes # (Man) (0) k/uL Myelocytes # (Manual) (0) k/uL Macrocytosis Carbon Dioxide 17.0 L (21.6-31.8) mmol/L Anion Gap 12.90 H (4.00-12.00) mmol/L BUN 45.8 H (9.0-27.0) mg/dL Creatinine 2.2 H (0.6-1.5) mg/dL Est GFR (CKD-EPI)AfAm 40.0 L (60.0-200.0) Est GFR (CKD-EPI)NonAf 34.5 L (60.0-200.0) BUN/Creatinine Ratio 21.11 H (12.00-20.00) Ratio Uric Acid 10.7 H (3.5-8.5) mg/dL Calcium 10.7 H (8.7-10.3) mg/dL Phosphorus (2.5-4.5) mg/dL AST <5 L (14-35) U/L ALT 8 L (10-49) U/L Total Protein 4.9 L (6.2-8.2) g/dL Total Protein (PEP) (6.2-8.2) g/dL Albumin 3.4 L (3.8-4.9) g/dL Globulin 1.5 L (1.6-3.3) g/dL PTH Intact (14.0-72.0) pg/mL Urine Blood (Negative) Urine Mucus (None) /hpf CMV IgG Ab (Nonreactive) Microbiology - Last 24 Hours (Table) 02/04/21 20:32 Urine Culture - Preliminary Urine,Voided
[2021-02-06 05:29] LABS: Anisocytosis Slight; HCT 24.4 % (39.0-53.0); HGB 8.3 gm/dL (13.0-17.5); MCH 38.3 pg (25.0-35.0); MCHC 33.8 g/dL (31.0-37.0); MCV 113.2 fL (80.0-100.0); Macrocytosis Marked; Mean Platelet Volume 8.5; RBC 2.16 m/uL (4.30-5.90); RDW 17.2 % (11.5-15.5); WBC 3.1 k/uL (3.8-10.6)
[2021-02-06 06:30] LABS: Platelet Count 56 k/uL (150-450)
[2021-02-06 07:52] LABS: Band Neutrophils % 1 %; Eosinophils # (M) 0.06 k/uL (0-0.7); Lymphocytes # (M) 0.87 k/uL (1.0-4.8); Monocytes # (M) 0.43 k/uL (0-1.0); Neutrophils % (M) 55 %; Nucleated Red Blood Cells 0 /100 WBC (0-0); Total Cells Counted 100
[2021-02-06 07:55] LABS: Poikilocytosis (M) Present
[2021-02-06] MEDS: ACYCLOVIR 200 MG CAP PO SCH ×2 (09:12→21:03)
[2021-02-06] MEDS: HYDROcodone/APAP 10-325MG 1 EACH TAB PO PRN ×2 (09:12→15:33)
[2021-02-06] MEDS: CYANOCOBALAMIN 500 MCG TAB PO SCH (09:12)
[2021-02-06] MEDS: CHOLECALCIFEROL 25 MCG (1000 IU) TABLET PO SCH (09:12)
[2021-02-06] MEDS: HEPARIN SODIUM,PORCINE/PF 5,000 UNIT/0.5 ML SYRINGE SQ SCH ×2 (09:13→21:03)
[2021-02-06] MEDS: PANTOPRAZOLE 40 MG TABLET PO SCH (09:13)
[2021-02-06 10:43] LABS: African American GFR (CKD) 61 (>60 ml/min/1.73 sqM); Anion Gap 7 mmol/L; Blood Urea Nitrogen 23 mg/dL (9-20); Calcium 10.8 mg/dL (8.4-10.2); Carbon Dioxide 19 mmol/L (22-30); Chloride 110 mmol/L (98-107); Glucose 150 mg/dL (74-99); Non-African American GFR(CKD) 53 (>60 ml/min/1.73 sqM); Potassium 4.9 mmol/L (3.5-5.1); Sodium 136 mmol/L (137-145)
[2021-02-06 11:02] LABS: ALT 8 U/L (10-49); AST <5 U/L (14-35); African American GFR (CKD) 49.1 (60.0-200.0); Albumin 3.7 g/dL (3.8-4.9); Albumin/Globulin Ratio 2.47 (1.60-3.17); Alkaline Phosphatase 65 U/L (41-126); BUN/Creat Ratio 13.93 Ratio (12.00-20.00); Blood Urea Nitrogen 25.5 mg/dL (9.0-27.0); Calcium 10.9 mg/dL (8.7-10.3); Carbon Dioxide 19.4 mmol/L (21.6-31.8); Chloride 108 mmol/L (96-109); Globulin 1.5 g/dL (1.6-3.3); Glucose 120 mg/dL (70-110); Non-African American GFR(CKD) 42.4 (60.0-200.0); Sodium 138 mmol/L (135-145); Total Protein 5.2 g/dL (6.2-8.2)
[2021-02-06] MEDS: SODIUM CHLORIDE 0.9% 1,000 ML IV SCH ×2 (11:56→17:35)
--- NOTE | 2021-02-06 13:00 | P.PN ---
Subjective Progress Note Date: 02/06/21 The patient appears fairly comfortable at rest, without any difficulty in breathing. He states that he still gets short of breath when he gets up and moves around. He continues to have right shoulder pain without limitation of range of motion. No fevers or chills, nausea vomiting, unusual bleeding or bruising. Objective - Vital Signs Vital signs: Vital Signs Temp 98.5 F 02/06/21 12:44 Pulse 90 02/06/21 12:44 Resp 19 02/06/21 12:44 BP 129/69 02/06/21 12:44 Pulse Ox 98 02/06/21 12:44 Intake & Output 02/05/21 02/06/21 02/06/21 18:59 06:59 18:59 Intake Total 971 1190 Balance 971 1190 Intake: Intake, IV Titration 971 600 Amount Azithromycin 500 mg In 250 Sodium Chloride 0.9% 250 ml @ 250 mls/hr IVPB Q24H [facility] Rx#:[id number] Rasburicase 6 mg In 46 Sodium Chloride 0.9% 46 ml @ 100 mls/hr IV ONCE ONE Rx#:[id number] Sodium Chloride 0.9% 1, 375 600 000 ml @ 75 mls/hr IV . [id number] [facility] Rx#:[id number] Sodium Chloride 0.9% 250 250 ml @ 83 mls/hr IV .Q3H1M ONE with Pamidronate 30 mg Rx#:[id number] cefTRIAXone 1 gm In 50 Sodium Chloride 0.9% 50 ml @ 100 mls/hr IVPB Q24H [facility] Rx#:[id number] Oral 590 Other: Voiding Method Toilet Toilet # Voids 1 1 - Constitutional General appearance: Present: no acute distress - EENT Eyes: Present: EOMI ENT: Present: hearing grossly normal, normal oropharynx - Respiratory Respiratory: bilateral: CTA - Cardiovascular Rhythm: regular Heart sounds: normal: S1, S2 - Gastrointestinal General gastrointestinal: Present: normal bowel sounds, soft - Integumentary Integumentary: Present: normal - Neurologic Neurologic: Present: CNII-XII intact - Psychiatric Psychiatric: Present: A&O x's 3, appropriate affect - Labs CBC & Chem 7: 02/06/21 04:41 02/06/21 10:04 Labs: Abnormal Lab Results - Last 24 Hours (Table) 02/06/21 02/06/21 02/06/21 Range/Units 04:41 04:41 04:41 WBC 3.1 L (3.8-10.6) k/uL RBC 2.16 L (4.30-5.90) m/uL Hgb 8.3 L (13.0-17.5) gm/dL Hct 24.4 L (39.0-53.0) % MCV 113.2 H (80.0-100.0) fL MCH 38.3 H (25.0-35.0) pg RDW 17.2 H (11.5-15.5) % Plt Count 56 L (150-450) k/uL Lymphocytes # (Manual) 0.87 L (1.0-4.8) k/uL Macrocytosis Marked A Sodium (137-145) mmol/L Chloride (98-107) mmol/L Carbon Dioxide 19.4 L (21.6-31.8) mmol/L BUN (9-20) mg/dL Creatinine 1.8 H (0.6-1.5) mg/dL Est GFR (CKD-EPI)AfAm 49.1 L (60.0-200.0) Est GFR (CKD-EPI)NonAf 42.4 L (60.0-200.0) Glucose 120 H (70-110) mg/dL Calcium 10.9 H (8.7-10.3) mg/dL Ferritin 1349.0 H (22.0-322.0) ng/mL AST <5 L (14-35) U/L ALT 8 L (10-49) U/L C-Reactive Protein 4.90 H (0.00-0.80) mg/dL Total Protein 5.2 L (6.2-8.2) g/dL Albumin 3.7 L (3.8-4.9) g/dL Globulin 1.5 L (1.6-3.3) g/dL Procalcitonin 0.31 H (0.02-0.09) ng/mL 02/06/21 Range/Units 10:04 WBC (3.8-10.6) k/uL RBC (4.30-5.90) m/uL Hgb (13.0-17.5) gm/dL Hct (39.0-53.0) % MCV (80.0-100.0) fL MCH (25.0-35.0) pg RDW (11.5-15.5) % Plt Count (150-450) k/uL Lymphocytes # (Manual) (1.0-4.8) k/uL Macrocytosis Sodium 136 L (137-145) mmol/L Chloride 110 H (98-107) mmol/L Carbon Dioxide 19 L (21.6-31.8) mmol/L BUN 23 H (9-20) mg/dL Creatinine 1.53 H (0.6-1.5) mg/dL Est GFR (CKD-EPI)AfAm (60.0-200.0) Est GFR (CKD-EPI)NonAf (60.0-200.0) Glucose 150 H (70-110) mg/dL Calcium 10.8 H (8.7-10.3) mg/dL Ferritin (22.0-322.0) ng/mL AST (14-35) U/L ALT (10-49) U/L C-Reactive Protein (0.00-0.80) mg/dL Total Protein (6.2-8.2) g/dL Albumin (3.8-4.9) g/dL Globulin (1.6-3.3) g/dL Procalcitonin (0.02-0.09) ng/mL Microbiology - Last 24 Hours (Table) 02/04/21 20:32 Urine Culture - Final Urine,Voided 02/04/21 20:09 Blood Culture - Preliminary Blood No Growth after 24 hours 02/04/21 17:33 Blood Culture - Preliminary Blood No Growth after 24 hours Assessment and Plan (1) Dyspnea Narrative/Plan: The patient is definitely improved from the outpatient setting, though e ndurance is still overall poor. He is saturating between 95 -100% on room air. At this time congestive heart failure/fluid overload essentially ruled out. His echocardiogram did not show any systolic dysfunction. The patient has actually been receiving IV fluids inpatient, without any diuretics, and has had improvement in respiratory status. - Therefore at this time and pneumonitis, presumably infectious with atypical presentation is probably the most likely diagnosis. As her previously, his regimen is not associated with chemical pneumonitis. The patient has also had some improvement since being admitted and started on ceftriaxone and azithromycin. Infection workup is in progress. ID following. Case was discussed with the admitting service. There was concern for recurrent jimenez virus infection, despite the patient having had prior history of infection, and vaccination. This was still considered a possibility given his very middle compromised state. However, as noted the patient has shown improvement without any specific treatment for COVID, and his testing has been negative. Current Visit: Yes Status: Acute Code(s): R06.00 - DYSPNEA, UNSPECIFIED SNOMED Code(s): 946553251 (2) Acute kidney injury Narrative/Plan: This has improved. Patient is currently on gentle IV hydration and has also received treatment for tumor lysis syndrome. Continue to monitor Current Visit: Yes Status: Acute Code(s): N17.9 - ACUTE KIDNEY FAILURE, UNSPECIFIED SNOMED Code(s): 92465783 (3) Multiple myeloma Narrative/Plan: Restaging labs are pending. It was again discussed with the patient and his family, that the results are unlikely to be helpful in changing management. If the patient appears to be having a response already, then of course his current regimen will continue. However if numbers are stable or even increasing, we will still continue the same regimen, as he has not been on it long enough to determine if it is going to be effective or not. Current Visit: Yes Status: Chronic Priority: High Code(s): C90.00 - MULTIPLE MYELOMA NOT HAVING ACHIEVED REMISSION SNOMED Code(s): 514846895 Plan: Pancytopenia - due to ongoing antineoplastic treatment as well as underlying myeloma. All numbers in the safe range. Continue current regimen and treat supportively to keep hemoglobin greater than 7 and platelets greater than 10. Check a right shoulder x-ray
--- NOTE | 2021-02-06 13:39 | XR ---
EXAMINATION TYPE: XR shoulder complete RT DATE OF EXAM: 02/06/2021 COMPARISON: NONE HISTORY: Pain TECHNIQUE: Three views are submitted. FINDINGS: The osseous structures are intact. There is no acute fracture or dislocation. AC joint arthropathy. Chronic rib deformities noted on the right. Could not exclude airspace disease in the right lung. IMPRESSION: 1. Airspace disease in the right lung correlate clinically. Osseous structures are somewhat mottled a nd could be associated with a blood dyscrasia, marrow occupying process including neoplastic disease. Consider bone scan. 2. AC joint arthropathy. 3. Remote right rib fracture.
--- NOTE | 2021-02-06 15:32 | P.PN ---
Subjective Progress Note Date: 02/06/21 Principal diagnosis: Pt is seen for f/u for PAUL, pre renal and secondary to hypercalcemia. Maintained on IVF. Underlying h/o Multiple Myeloma with recurrence, started on repeat chemo Possible component of tumor lysis syndrome also present. Currently voiding well. Cr decreased to 1.5 from 2.2. Good UOP. Objective - Vital Signs Vital signs: Vital Signs Temp 98.5 F 02/06/21 12:44 Pulse 90 02/06/21 12:44 Resp 19 02/06/21 12:44 BP 129/69 02/06/21 12:44 Pulse Ox 98 02/06/21 12:44 Intake & Output 02/05/21 02/06/21 02/06/21 18:59 06:59 18:59 Intake Total 971 1190 Balance 971 1190 Intake: Intake, IV Titration 971 600 Amount Azithromycin 500 mg In 250 Sodium Chloride 0.9% 250 ml @ 250 mls/hr IVPB Q24H [facility] Rx#:[id number] Rasburicase 6 mg In 46 Sodium Chloride 0.9% 46 ml @ 100 mls/hr IV ONCE ONE Rx#:[id number] Sodium Chloride 0.9% 1, 375 600 000 ml @ 75 mls/hr IV . [id number] [facility] Rx#:[id number] Sodium Chloride 0.9% 250 250 ml @ 83 mls/hr IV .Q3H1M ONE with Pamidronate 30 mg Rx#:[id number] cefTRIAXone 1 gm In 50 Sodium Chloride 0.9% 50 ml @ 100 mls/hr IVPB Q24H [facility] Rx#:[id number] Oral 590 Other: Voiding Method Toilet Toilet # Voids 1 1 - Exam Pt is awake, comfortable. Alert and oriented x3. Lungs are clear. CVS S1 and s2 Abdomen is soft and non tender. Extremities show no edema BIGHT [employer]ER grossly intact. No focal motor deficits noted. - Labs CBC & Chem 7: 02/06/21 04:41 02/06/21 10:04 Labs: Abnormal Lab Results - Last 24 Hours (Table) 02/06/21 02/06/21 02/06/21 Range/Units 04:41 04:41 04:41 WBC 3.1 L (3.8-10.6) k/uL RBC 2.16 L (4.30-5.90) m/uL Hgb 8.3 L (13.0-17.5) gm/dL Hct 24.4 L (39.0-53.0) % MCV 113.2 H (80.0-100.0) fL MCH 38.3 H (25.0-35.0) pg RDW 17.2 H (11.5-15.5) % Plt Count 56 L (150-450) k/uL Lymphocytes # (Manual) 0.87 L (1.0-4.8) k/uL Macrocytosis Marked A Sodium (137-145) mmol/L Chloride (98-107) mmol/L Carbon Dioxide 19.4 L (21.6-31.8) mmol/L BUN (9-20) mg/dL Creatinine 1.8 H (0.6-1.5) mg/dL Est GFR (CKD-EPI)AfAm 49.1 L (60.0-200.0) Est GFR (CKD-EPI)NonAf 42.4 L (60.0-200.0) Glucose 120 H (70-110) mg/dL Calcium 10.9 H (8.7-10.3) mg/dL Ferritin 1349.0 H (22.0-322.0) ng/mL AST <5 L (14-35) U/L ALT 8 L (10-49) U/L C-Reactive Protein 4.90 H (0.00-0.80) mg/dL Total Protein 5.2 L (6.2-8.2) g/dL Albumin 3.7 L (3.8-4.9) g/dL Globulin 1.5 L (1.6-3.3) g/dL Procalcitonin 0.31 H (0.02-0.09) ng/mL 02/06/21 Range/Units 10:04 WBC (3.8-10.6) k/uL RBC (4.30-5.90) m/uL Hgb (13.0-17.5) gm/dL Hct (39.0-53.0) % MCV (80.0-100.0) fL MCH (25.0-35.0) pg RDW (11.5-15.5) % Plt Count (150-450) k/uL Lymphocytes # (Manual) (1.0-4.8) k/uL Macrocytosis Sodium 136 L (137-145) mmol/L Chloride 110 H (98-107) mmol/L Carbon Dioxide 19 L (21.6-31.8) mmol/L BUN 23 H (9-20) mg/dL Creatinine 1.53 H (0.6-1.5) mg/dL Est GFR (CKD-EPI)AfAm (60.0-200.0) Est GFR (CKD-EPI)NonAf (60.0-200.0) Glucose 150 H (70-110) mg/dL Calcium 10.8 H (8.7-10.3) mg/dL Ferritin (22.0-322.0) ng/mL AST (14-35) U/L ALT (10-49) U/L C-Reactive Protein (0.00-0.80) mg/dL Total Protein (6.2-8.2) g/dL Albumin (3.8-4.9) g/dL Globulin (1.6-3.3) g/dL Procalcitonin (0.02-0.09) ng/mL Microbiology - Last 24 Hours (Table) 02/04/21 20:32 Urine Culture - Final Urine,Voided 02/04/21 20:09 Blood Culture - Preliminary Blood No Growth after 24 hours 02/04/21 17:33 Blood Culture - Preliminary Blood No Growth after 24 hours Assessment and Plan Assessment: 1. PAUL, pre renal from low BP, hypovolemia and hypercalcemia. Improved with IV hydration and holding NICK/I 2. Multiple Myeloma, with recurernce and restarted chemotherapy with possibility of tumor lysis syndrome. 3. Hypercalcemia due to multiple myeloma. PTH is appropriately low. S/p pamidronte and improved. 4. Possible pneumonia, atypical, maintained on antibiotics. Plan: 1. Continue IVF. Decrease rate. 2. Repeat labs in am. 3.Continue to avoid nephrotoxic agents.
[2021-02-06] MEDS: AZITHROMYCIN 500 MG in SODIUM CHLORIDE 0.9% 250 ML IVPB SCH (18:07)
[2021-02-06] MEDS: POMALYST PO SCH (18:08)
--- NOTE | 2021-02-06 19:21 | PN ---
PROGRESS NOTE DATE OF SERVICE: 02/06/2021 This 50-year-old gentleman who was admitted with shortness of breath also had bilateral interstitial pneumonia. The patient also ( ) chemotherapy. No chest pain. No palpitations. Renal function slightly improved. Patient also had vascular asymmetry but Dr. Rocha is not planning any definitive treatments. No chest pain. No palpitations. No fever. A carotid ultrasound does not show any significant stenosis. PHYSICAL EXAMINATION: Alert and oriented x3. Pulse is 90, blood pressure 109/60, respiration 18, temperature 98.4, pulse ox 98% on room air. HEENT: Conjunctivae normal. Oral mucosa moist. NECK: No jugular venous distention. No lymph node enlargement. CARDIOVASCULAR: S1, S2, muffled. No S3, no S4, RESPIRATORY: Diminished breath sounds at the bases. A few scattered rhonchi. No crackles. ABDOMEN: Soft, obese, nontender. LEGS: No edema, no swelling. NERVOUS SYSTEM: No focal deficits. LABS: Shows WBC 3.2, hemoglobin is 8.3, sodium 136, creatinine 1.33. ASSESSMENT: 1. Shortness of breath, possibly acute bilateral interstitial pneumonia, possibly viral pneumonia, sepsis, present on admission. 2. History of multiple myeloma on chemotherapy. 3. Right arm pain, possibly asymmetric blood pressure claudication and vascular occlusion. 4. Elevated creatinine, chronic kidney disease stage 3. 5. Hypercalcemia secondary to multiple myeloma. 6. Hyponatremia. 7. Anemia, macrocytic. 8. Thrombocytopenia. 9. History of previous infiltrates. 10.Increased BNP. 11.Hypertension. 12.History of appendectomy. 13.Hyperuricemia. RECOMMENDATIONS: Recommend to continue current management and symptomatic treatment. Otherwise, at this time I would recommend repeat labs and closely monitor and also get a pulmonary consultation with Dr. Nuno for the abnormal chest x-rays and CT scans and possible bronchoscopy, culture, biopsy and other further workup. Prognosis extremely guarded. Further recommendations to follow. MMODL / IJN: [id number] /
[2021-02-06] MEDS: ESCITALOPRAM 20 MG TAB PO SCH (21:03)
[2021-02-06] MEDS: MIRTAZAPINE 15 MG TAB PO SCH (21:03)
[2021-02-06] MEDS: ZOLPIDEM 5 MG TAB PO SCH (21:03)
--- NOTE | 2021-02-07 00:23 | PN ---
PROGRESS NOTE DATE OF SERVICE: 02/06/2021. REASON FOR FOLLOWUP: Pneumonia. INTERVAL HISTORY: The patient is afebrile. The patient is still complaining of shortness of breath. No significant improvement. The patient denies any cough or sputum production. No vomiting. No abdominal pain. No diarrhea. PHYSICAL EXAMINATION: Blood pressure 111/65 with a pulse of 98, temperature of 99.4. He is 96% on room air. General description is a middle-aged male lying in bed in no distress. Respiratory system: Unlabored breathing, decreased intensity of breath sounds. No wheeze. Heart S1, S2. Regular rate and rhythm. Abdomen soft, no tenderness. LABS: Hemoglobin 8.8, white count 3.1, creatinine 1.53. Procalcitonin was mildly elevated with 0.31. DIAGNOSTIC IMPRESSION AND PLAN: Patient admitted to the hospital with increasing shortness of breath with concern for infection of unknown infectious etiology so far with no fever or elevated white count and no cough making it to be less likely. Infection could not be entirely excluded in view of underlying immunocompromised state. The patient may benefit from a bronchoscopy, biopsy and cultures. All his questions and concerns were answered. MMODL / IJN: [id number] /
[2021-02-07 07:50] LABS: Anisocytosis Slight; HCT 23.1 % (39.0-53.0); HGB 7.6 gm/dL (13.0-17.5); MCH 37.7 pg (25.0-35.0); MCHC 33.1 g/dL (31.0-37.0); MCV 113.9 fL (80.0-100.0); Macrocytosis Marked; Mean Platelet Volume 8.5; RBC 2.02 m/uL (4.30-5.90); WBC 2.1 k/uL (3.8-10.6)
[2021-02-07 07:53] LABS: Platelet Count 59 k/uL (150-450)
[2021-02-07] MEDS: HEPARIN SODIUM,PORCINE/PF 5,000 UNIT/0.5 ML SYRINGE SQ SCH ×2 (07:56→21:21)
[2021-02-07] MEDS: ACYCLOVIR 200 MG CAP PO SCH ×2 (07:56→21:21)
[2021-02-07] MEDS: dexAMETHasone 4 MG TAB PO SCH (07:56)
[2021-02-07] MEDS: CHOLECALCIFEROL 25 MCG (1000 IU) TABLET PO SCH (07:57)
[2021-02-07] MEDS: SULFAMETHOX-TMP 800-160MG 1 EACH TAB PO SCH (07:57)
[2021-02-07] MEDS: PANTOPRAZOLE 40 MG TABLET PO SCH (07:57)
[2021-02-07] MEDS: CYANOCOBALAMIN 500 MCG TAB PO SCH (07:57)
[2021-02-07] MEDS: SODIUM CHLORIDE 0.9% 1,000 ML IV SCH ×2 (07:57→19:25)
[2021-02-07] MEDS: HYDROcodone/APAP 10-325MG 1 EACH TAB PO PRN (08:02)
[2021-02-07 08:48] LABS: Mycoplasma IgG Antibody (EIA) 0.15 INDEX (<=0.90); Mycoplasma IgM Antibody 0.03 INDEX (<=0.90)
[2021-02-07 11:53] LABS: Band Neutrophils % 6 %; Eosinophils # (M) 0.25 k/uL (0-0.7); Lymphocytes # (M) 0.63 k/uL (1.0-4.8); Monocytes # (M) 0.25 k/uL (0-1.0); Myelocytes # (M) 0.02 k/uL (0); Myelocytes % 1 %; Neutrophils % (M) 39 %; Nucleated Red Blood Cells 0 /100 WBC (0-0); Polychromasia Present; Total Cells Counted 100; Toxic Vacuolation Present
--- NOTE | 2021-02-07 12:49 | P.PN ---
Subjective Progress Note Date: 02/07/21 Patient is seen as a follow-up for questionable subclavian steal syndrome. Patient states shoulder pain is actually somewhat improved. He's had chronic shoulder pain for the last 1 month duration. He denies any numbness or tingling down his arm or fingers. Has full range of motion. Carotid duplex was reviewed by Dr. Rocha who states there was no evidence of subclavian steal syndrome as both vertebral arteries have flow in the normal antegrade direction. Objective - Vital Signs Vital signs: Vital Signs Temp 98.8 F 02/07/21 05:00 Pulse 99 02/07/21 05:00 Resp 16 02/07/21 05:00 BP 109/55 02/07/21 05:00 Pulse Ox 95 02/07/21 05:00 Intake & Output 02/06/21 02/07/21 02/07/21 18:59 06:59 18:59 Intake Total 50 600 Balance 50 600 Intake: Intake, IV Titration 50 600 Amount Sodium Chloride 0.9% 1, 600 000 ml @ 75 mls/hr IV . [id number] [facility] Rx#:[id number] cefTRIAXone 1 gm In 50 Sodium Chloride 0.9% 50 ml @ 100 mls/hr IVPB Q24H [facility] Rx#:[id number] Other: Voiding Method Toilet Toilet # Voids 1 - Exam General appearance: The patient is alert, oriented, in no acute distress. HET: Head is normocephalic and atraumatic. Neck: Supple without lymphadenopathy. Trachea midline. Extremities: Normal skin color and turgor. No cyanosis, rash, ulceration, clubbing, or edema. Radial pulses +2 bilaterally. Full range of motion bilateral upper extremities. Neurological: No focal deficits. Strength and sensation are grossly intact. - Labs CBC & Chem 7: 02/07/21 07:00 02/06/21 10:04 Labs: Abnormal Lab Results - Last 24 Hours (Table) 02/06/21 02/06/21 02/06/21 Range/Units 04:41 04:41 10:04 WBC (3.8-10.6) k/uL RBC (4.30-5.90) m/uL Hgb (13.0-17.5) gm/dL Hct (39.0-53.0) % MCV (80.0-100.0) fL MCH (25.0-35.0) pg RDW (11.5-15.5) % Macrocytosis Sodium 136 L (137-145) mmol/L Chloride 110 H (98-107) mmol/L Carbon Dioxide 19.4 L 19 L (21.6-31.8) mmol/L BUN 23 H (9-20) mg/dL Creatinine 1.8 H 1.53 H (0.6-1.5) mg/dL Est GFR (CKD-EPI)AfAm 49.1 L (60.0-200.0) Est GFR (CKD-EPI)NonAf 42.4 L (60.0-200.0) Glucose 120 H 150 H (70-110) mg/dL Calcium 10.9 H 10.8 H (8.7-10.3) mg/dL Ferritin 1349.0 H (22.0-322.0) ng/mL AST <5 L (14-35) U/L ALT 8 L (10-49) U/L C-Reactive Protein 4.90 H (0.00-0.80) mg/dL Total Protein 5.2 L (6.2-8.2) g/dL Albumin 3.7 L (3.8-4.9) g/dL Globulin 1.5 L (1.6-3.3) g/dL Procalcitonin 0.31 H (0.02-0.09) ng/mL 02/07/21 Range/Units 07:00 WBC 2.1 L (3.8-10.6) k/uL RBC 2.02 L (4.30-5.90) m/uL Hgb 7.6 L (13.0-17.5) gm/dL Hct 23.1 L (39.0-53.0) % MCV 113.9 H (80.0-100.0) fL MCH 37.7 H (25.0-35.0) pg RDW 17.0 H (11.5-15.5) % Macrocytosis Marked A Sodium (137-145) mmol/L Chloride (98-107) mmol/L Carbon Dioxide (21.6-31.8) mmol/L BUN (9-20) mg/dL Creatinine (0.6-1.5) mg/dL Est GFR (CKD-EPI)AfAm (60.0-200.0) Est GFR (CKD-EPI)NonAf (60.0-200.0) Glucose (70-110) mg/dL Calcium (8.7-10.3) mg/dL Ferritin (22.0-322.0) ng/mL AST (14-35) U/L ALT (10-49) U/L C-Reactive Protein (0.00-0.80) mg/dL Total Protein (6.2-8.2) g/dL Albumin (3.8-4.9) g/dL Globulin (1.6-3.3) g/dL Procalcitonin (0.02-0.09) ng/mL Microbiology - Last 24 Hours (Table) 02/06/21 13:45 Gram Stain - Preliminary Sputum Sputum Culture - Preliminary 02/04/21 20:09 Blood Culture - Preliminary Blood No Growth after 48 hours 02/04/21 17:33 Blood Culture - Preliminary Blood No Growth after 48 hours 02/04/21 20:32 Urine Culture - Final Urine,Voided Assessment and Plan Assessment: 1. 40 mmHg gradient systolic blood pressure difference between right and left upper extremities, currently asymptomatic 2. Multiple comorbidities Plan: 1. Continue symptomatic and supportive care 2. Continue current medical treatment. 3. There is no indication for any vascular surgical intervention at this time. Patient may follow-up in outpatient setting as needed. Thank you for this consultation, we will sign off at this time. The impression and plan of care has been dictated as directed. I performed a history and examination of this patient, discussed the same with the dictator. I agree with the dictator's note ,documented as a scribe. Any additional findings or plans will be noted.
--- NOTE | 2021-02-07 13:28 | P.PN ---
Subjective Progress Note Date: 02/07/21 Principal diagnosis: Dyspnea, MM In f/u pt reports stable breathing, no cough, fever, tolerating oral intake. Objective - Vital Signs Vital signs: Vital Signs Temp 98.8 F 02/07/21 05:00 Pulse 99 02/07/21 05:00 Resp 16 02/07/21 05:00 BP 109/55 02/07/21 05:00 Pulse Ox 95 02/07/21 05:00 Intake & Output 02/06/21 02/07/21 02/07/21 18:59 06:59 18:59 Intake Total 50 600 Balance 50 600 Intake: Intake, IV Titration 50 600 Amount Sodium Chloride 0.9% 1, 600 000 ml @ 75 mls/hr IV . [id number] [facility] Rx#:[id number] cefTRIAXone 1 gm In 50 Sodium Chloride 0.9% 50 ml @ 100 mls/hr IVPB Q24H [facility] Rx#:[id number] Other: Voiding Method Toilet Toilet # Voids 1 - Constitutional General appearance: Present: average body habitus, cooperative, no acute distress - EENT Eyes: Present: anicteric sclerae, EOMI ENT: Present: hearing grossly normal - Respiratory Respiratory: bilateral: CTA, diminished (bases) - Cardiovascular Heart sounds: normal: S1, S2 - Peripheral edema leg Peripheral Edema: bilateral: None - Gastrointestinal General gastrointestinal: Present: normal bowel sounds, soft. Absent: absent bowel sounds, decreased bowel sounds, distended, hepatomegaly, hyperactive bowel sounds, organomegaly, rigid, scaphoid, splenomegaly, tenderness, umbilical hernia, ventral hernia - Integumentary Integumentary: Present: normal - Neurologic Neurologic: Present: CNII-XII intact - Musculoskeletal Musculoskeletal: Present: strength equal bilaterally - Psychiatric Psychiatric: Present: A&O x's 3, appropriate affect, intact judgment & insight - Labs CBC & Chem 7: 02/07/21 07:00 02/06/21 10:04 Labs: Abnormal Lab Results - Last 24 Hours (Table) 02/06/21 02/06/21 02/07/21 Range/Units 04:41 04:41 07:00 WBC 2.1 L (3.8-10.6) k/uL RBC 2.02 L (4.30-5.90) m/uL Hgb 7.6 L (13.0-17.5) gm/dL Hct 23.1 L (39.0-53.0) % MCV 113.9 H (80.0-100.0) fL MCH 37.7 H (25.0-35.0) pg RDW 17.0 H (11.5-15.5) % Macrocytosis Marked A Carbon Dioxide 19.4 L (21.6-31.8) mmol/L Creatinine 1.8 H (0.6-1.5) mg/dL Est GFR (CKD-EPI)AfAm 49.1 L (60.0-200.0) Est GFR (CKD-EPI)NonAf 42.4 L (60.0-200.0) Glucose 120 H (70-110) mg/dL Calcium 10.9 H (8.7-10.3) mg/dL Ferritin 1349.0 H (22.0-322.0) ng/mL AST <5 L (14-35) U/L ALT 8 L (10-49) U/L C-Reactive Protein 4.90 H (0.00-0.80) mg/dL Total Protein 5.2 L (6.2-8.2) g/dL Albumin 3.7 L (3.8-4.9) g/dL Globulin 1.5 L (1.6-3.3) g/dL Procalcitonin 0.31 H (0.02-0.09) ng/mL Microbiology - Last 24 Hours (Table) 02/06/21 13:45 Gram Stain - Preliminary Sputum Sputum Culture - Preliminary 02/04/21 20:09 Blood Culture - Preliminary Blood No Growth after 48 hours 02/04/21 17:33 Blood Culture - Preliminary Blood No Growth after 48 hours 02/04/21 20:32 Urine Culture - Final Urine,Voided Assessment and Plan (1) Acute kidney injury Narrative/Plan: More likely due to dehydration rather then myeloma since renal function improving with hydration. Nephrology consulted and following Current Visit: Yes Status: Acute Code(s): N17.9 - ACUTE KIDNEY FAILURE, UNSPECIFIED SNOMED Code(s): 35316892 (2) Dyspnea Current Visit: Yes Status: Acute Code(s): R06.00 - DYSPNEA, UNSPECIFIED SNOMED Code(s): 025075845 (3) Atelectasis of both lungs Narrative/Plan: Concern for atypical infection in immuno-compromised pt, multiple lines of treatment and myeloma. Pulmonary consulted Current Visit: No Status: Acute Code(s): J98.11 - ATELECTASIS SNOMED Code (s): 53045724 (4) Hypercalcemia Narrative/Plan: 2/2 myeloma/malignancy. Pt received 1/3 of a 90mg dose of aredia, Ca++ stable but remains elevated. 2nd 30mg dose will be ordered. Ca++ level in AM. Current Visit: No Status: Acute Priority: High Code(s): E83.52 - HYPERCALCEMIA SNOMED Code(s): 38597799 (5) [place] [employer] myeloma Narrative/Plan: Just initiated on new regimen 2 weeks ago. Pending SPEP results. Dr. Monzon did discuss case with [facility] in [place], pt is being considered for CAR-T treatment. Current Visit: No Status: Acute Priority: High Code(s): C90.00 - MULTIPLE MYELOMA NOT HAVING ACHIEVED REMISSION SNOMED Code(s): 386576618 Plan: Attests: I have seen and examined pt, performed H&P, developed impression and plan of care. Discussed with dictator. Agree with documentation, do cumented as a scribe.
[2021-02-07] MEDS ORDERED: SODIUM CHLORIDE 0.9% 250 ML with PAMIDRONATE 30 MG IV ONE ×2 (15:00)
[2021-02-07 15:23] LABS: Free Kappa Lt Chain Qnt, Serum 88.78 mg/dL (0.33-1.94)
--- NOTE | 2021-02-07 18:33 | P.CNPUL ---
History of Present Illness Consult date: 02/07/21 Requesting physician: Divina Rios Chief complaint: Shortness of breath History of present illness: 50-year-old male patient of Dr. Pate with past medical history of hypertension, multiple myeloma, depression, never smoker. Patient follows with Dr. Monzon at the [facility] for his history of multiple myeloma. Patient came into the emergency department on 02/04/2021 for evaluation of shortness of breath and weakness of one-week duration. Patient recently started new treatment for multiple myeloma. He is currently awaiting initiation for CAR-T therapy for recent progression of his multiple myeloma. He follows with the medical oncologist from [facility] in [place]. Patient apparently had a CT a ngiogram of the chest ordered by Dr. Monzon one week ago on 01/28/2021. It showed resolution of previous infiltrates from April 2020. And there was a new groundglass and nodular infiltrate in the posterior right upper lobe and minimal groundglass changes in the anterior right and left upper lobes. There was a possibility of recurrent pneumonia and possibility of comorbid pneumonia. No large central pulmonary embolism was identified, however this was a suboptimal contrast bolus. There was no definite lobar or segmental branch emboli. There was scattered osseous lesions redemonstrated compatible with patient's history of multiple myeloma. Patient was checked for COVID-19 via PCR and was negative, Legionella urine antigen was negative, mycoplasma IgG and IgM were both low at 0.15 and 0.03. Influenza A and B were negative. Chest x-ray in the emergency department showed interstitial pneumonitis all mild venous congestion, and they were lucent lesions involving the osseous structures. Admission blood work showed a white blood cell count of 4.7, hemoglobin of 8.8, INR of 1.0, sodium was 133, potassium is 4.7, chloride was 104, CO2 is 20, BUN is 56, creatinine is 2.11. Lactic acid was 1.1, calcium was 11.4, AST was low at 10, ALT was 11, alkaline phosphatase was 64, troponin was less than 0.012, proBNP was 764. His PTH level was 9.2, urinalysis was negative for any sign of infection. CT chest without contrast was obtained showing patchy groundglass pulmonary interstitial infiltrates, and bony changes consistent with multiple myeloma. Echocardiogram has been completed showing moderate concentric LVH LV function preserved, with EF of 55-60%, mild aortic stenosis, mild to moderate mitral regurgitation, mild tricuspid regurgitation, no evidence of pulmonary hypertension. Medical oncology saw the patient and consultation, and suspected tumor lysis syndrome. Patient is currently being discussed possibility of a CAR-T therapy, however there is 6 months waiting list, and in the meantime he was on salvage therapy with [facility]. Blood cultures are negative, sputum showed few polymorphonuclear leukocytes, many gram-positive cocci, moderate gram-negative bacilli. Final culture is pending. Urine culture was negative. ID service is following, patient is on empiric antibiotics in the form of azithromycin and Rocephin, she is also on Bactrim DS, and Acyclovir. His labs from today show white blood cell count of 2.1, hemoglobin of 7.6, calcium level is down to 10.8, proBNP level is 1410, pro-calcitonin level was 0.31. Patient remains on IV hydration with point of the same at 75 ML per hour. Patient's renal function is improving on yesterday's labs his creatinine was down to 1.53 from 2.11 on admission. Patient is afebrile, he is currently on room air with pulse ox of 96%. While in the hospital he was noted to have a 40 mm gradient in the systolic pressure between the right and left extremity, and vascular surgery was consulted however carotid duplex did not show evidence of a subclavian steal syndrome. Patient denies any cough, no chest pain, no phlegm production, no wheezing. Still having exertional dyspnea, vital signs are stable, recovers with rest. Review of Systems All systems: negative Constitutional: Reports fatigue, Reports weakness, Denies chills, Denies fever Eyes: denies blurred vision, denies pain Ears, nose, mouth and throat: Denies headache, Denies sore throat Cardiovascular: Denies chest pain, Denies shortness of breath Respiratory: Reports dyspnea, Denies cough Gastrointestinal: Denies abdominal pain, Denies diarrhea, Denies nausea, Denies vomiting Musculoskeletal: Denies myalgias Integumentary: Denies pruritus, Denies rash Neurological: Denies numbness, Denies weakness Psychiatric: Denies anxiety, Denies depression Endocrine: Denies fatigue, Denies weight change Past Medical History Past Medical History: Cancer, Hypertension Additional Past Medical History / Comment(s): Multiple Myeloma, takes oral chemo (last taken 05/10/20) History of Any Multi-Drug Resistant Organisms: None Reported Past Surgical History: Appendectomy 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 No experience. No recent travel. No significant tobacco or alcohol use or recreational drug use. 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 No experience. No recent travel. No significant tobacco or alcohol use or recreational drug use. 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 Past Drug Use History: None Reported - Past Family History Father Family Medical History: Hypertension Mother Family Medical History: No Reported History Medications and Allergies Home Medications Medication Instructions Recorded Confirmed Type Sulfamethox-Tmp 800-160Mg [Bactrim 1 tab PO MOWEFR@0900 07/18/18 02/04/21 History DS 800-160 mg] Acyclovir [Zovirax] 400 mg PO BID 02/23/20 02/04/21 History Escitalopram [Lexapro] 20 mg PO HS 02/23/20 02/04/21 History HYDROmorphone [Dilaudid] 2 mg PO BID PRN 02/23/20 02/04/21 History Zolpidem [Ambien] 5 - 10 mg PO HS 02/23/20 02/04/21 History Omeprazole 20 mg PO DAILY 05/12/20 02/04/21 History Butalb/Acetaminophen/Caffeine 1 - 2 cap PO Q4HR PRN 02/04/21 02/04/21 History [Fioricet 50-300-40 mg Capsule] Cholecalciferol [Vitamin D3 (25 50 mcg PO DAILY 02/04/21 02/04/21 History Mcg = 1000 Iu)] Cyanocobalamin (Vitamin B-12) 1,000 mcg PO DAILY 02/04/21 02/04/21 History [Vitamin B-12] HYDROcodone/APAP 10-325MG [[place] 1 tab PO Q8H PRN 02/04/21 02/04/21 History 10-325] Mirtazapine [Remeron] 15 mg PO HS 02/04/21 02/04/21 History Pomalyst 4mg 4 mg PO DIRECTED 02/04/21 02/04/21 History amLODIPine [Norvasc] 10 mg PO DAILY 02/04/21 02/04/21 History dexAMETHasone 28 mg PO MO 02/04/21 02/04/21 History lisinopriL [Zestril] 20 mg PO DAILY 02/04/21 02/04/21 History Allergies Allergy/AdvReac Type Severity Reaction Status Date / Time morphine Allergy Itching Verified 02/04/21 13:04 Physical Exam Vitals: Vital Signs Temp Pulse Resp BP BP Pulse Ox 02/07/21 11:09 98.1 F 93 16 123/65 96 02/07/21 05:00 98.8 F 99 16 109/55 95 02/06/21 21:00 99.4 F 98 16 111/65 96 Intake and Output 02/06/21 02/07/21 02/07/21 22:59 06:59 14:59 Intake Total 50 600 Balance 50 600 Intake: Intake, IV Titration 50 600 Amount Sodium Chloride 0.9% 1, 600 000 ml @ 75 mls/hr IV . [id number] [facility] Rx#:[id number] cefTRIAXone 1 gm In 50 Sodium Chloride 0.9% 50 ml @ 100 mls/hr IVPB Q24H [facility] Rx#:[id number] Other: Voiding Method Toilet Weight 95.254 kg GENERAL EXAM: Alert, very pleasant, 50-year-old white male, on room air, with pulse ox of 96% comfortable in no apparent distress. HEAD: Normocephalic/atraumatic. EYES: Normal reaction of pupils, equal size. Conjunctiva pink, sclera white. NOSE: Clear with pink turbinates. THROAT: No erythema or exudates. NECK: No masses, no JVD, no thyroid enlargement, no adenopathy. CHEST: No chest wall deformity. Symmetrical expansion. LUNGS: Equal air entry with mild bibasilar crackles, but no wheeze, rhonchi or dullness. CVS: Regular rate and rhythm, normal S1 and S2, no gallops, no murmurs, no rubs ABDOMEN: Soft, nontender. No hepatosplenomegaly, normal bowel sounds, no guarding or rigidity. EXTREMITIES: No clubbing, no edema, no cyanosis, 2+ pulses and upper and lower extremities. MUSCULOSKELETAL: Muscle strength and tone normal. SPINE: No scoliosis or deformity SKIN: No rashes CENTRAL NERVOUS SYSTEM: Alert and oriented -3. No focal deficits, tone is normal in all 4 extremities. PSYCHIATRIC: Alert and oriented -3. Appropriate affect. Intact judgment and insight. Results - Laboratory Findings CBC and BMP: 02/07/21 07:00 02/06/21 10:04 PT/INR, D-dimer PT 10.6 sec (9.0-12.0) 02/04/21 10:04 INR 1.0 (<1.2) 02/04/21 10:04 D-Dimer 0.31 mg/L FEU (<0.60) 02/06/21 04:41 Abnormal lab findings: Abnormal Labs 02/04/21 02/04/21 02/04/21 10:04 10:04 10:04 WBC RBC 2.34 L Hgb 8.8 L Hct 25.1 L MCV 107.1 H MCH 37.5 H RDW 17.0 H Plt Count 71 L Neutrophils # (Manual) Lymphocytes # (Manual) 0.71 L Metamyelocytes # (Man) Myelocytes # (Manual) 0.05 H Macrocytosis Marked A APTT 21.0 L Sodium 133 L Chloride Carbon Dioxide 20 L Anion Gap BUN 56 H Creatinine 2.11 H Est GFR (CKD-EPI)AfAm Est GFR (CKD-EPI)NonAf BUN/Creatinine Ratio Glucose 129 H Uric Acid Calcium 11.4 H Phosphorus Ferritin AST 10 L ALT C-Reactive Protein Total Protein 5.6 L Total Protein (PEP) Albumin Globulin Procalcitonin PTH Intact Urine Blood Urine Mucus CMV IgG Ab 02/04/21 02/04/21 02/04/21 18:55 20:30 20:30 WBC RBC Hgb Hct MCV MCH RDW Plt Count Neutrophils # (Manual) Lymphocytes # (Manual) Metamyelocytes # (Man) Myelocytes # (Manual) Macrocytosis APTT Sodium Chloride Carbon Dioxide Anion Gap BUN Creatinine Est GFR (CKD-EPI)AfAm Est GFR (CKD-EPI)NonAf BUN/Creatinine Ratio Glucose Uric Acid 10.4 H Calcium Phosphorus 4.6 H Ferritin AST ALT C-Reactive Protein Total Protein Total Protein (PEP) 5.0 L Albumin Globulin Procalcitonin PTH Intact Urine Blood Urine Mucus CMV IgG Ab Borderline A 02/04/21 02/04/21 02/05/21 20:30 20:32 04:43 WBC 3.3 L RBC 2.05 L Hgb 7.9 L Hct 23.2 L MCV 113.1 H D MCH 38.2 H RDW 17.1 H Plt Count 67 L Neutrophils # (Manual) Lymphocytes # (Manual) 0.86 L Metamyelocytes # (Man) 0.03 H Myelocytes # (Manual) 0.03 H Macrocytosis Marked A APTT Sodium Chloride Carbon Dioxide Anion Gap BUN Creatinine Est GFR (CKD-EPI)AfAm Est GFR (CKD-EPI)NonAf BUN/Creatinine Ratio Glucose Uric Acid Calcium Phosphorus Ferritin AST ALT C-Reactive Protein Total Protein Total Protein (PEP) Albumin Globulin Procalcitonin PTH Intact 9.2 L Urine Blood Small H Urine Mucus Rare H CMV IgG Ab 02/05/21 02/06/21 02/06/21 04:43 04:41 04:41 WBC 3.1 L RBC 2.16 L Hgb 8.3 L Hct 24.4 L MCV 113.2 H MCH 38.3 H RDW 17.2 H Plt Count 56 L Neutrophils # (Manual) Lymphocytes # (Manual) 0.87 L Metamyelocytes # (Man) Myelocytes # (Manual) Macrocytosis Marked A APTT Sodium Chloride Carbon Dioxide 17.0 L 19.4 L Anion Gap 12.90 H BUN 45.8 H Creatinine 2.2 H 1.8 H Est GFR (CKD-EPI)AfAm 40.0 L 49.1 L Est GFR (CKD-EPI)NonAf 34.5 L 42.4 L BUN/Creatinine Ratio 21.11 H Glucose 120 H Uric Acid 10.7 H Calcium 10.7 H 10.9 H Phosphorus Ferritin 1349.0 H AST <5 L <5 L ALT 8 L 8 L C-Reactive Protein 4.90 H Total Protein 4.9 L 5.2 L Total Protein (PEP) Albumin 3.4 L 3.7 L Globulin 1.5 L 1.5 L Procalcitonin PTH Intact Urine Blood Urine Mucus CMV IgG Ab 02/06/21 02/06/21 02/07/21 04:41 10:04 07:00 WBC 2.1 L RBC 2.02 L Hgb 7.6 L Hct 23.1 L MCV 113.9 H MCH 37.7 H RDW 17.0 H Plt Count 59 L Neutrophils # (Manual) 0.90 L Lymphocytes # (Manual) 0.63 L Metamyelocytes # (Man) Myelocytes # (Manual) 0.02 H Macrocytosis Marked A APTT Sodium 136 L Chloride 110 H Carbon Dioxide 19 L Anion Gap BUN 23 H Creatinine 1.53 H Est GFR (CKD-EPI)AfAm Est GFR (CKD-EPI)NonAf BUN/Creatinine Ratio Glucose 150 H Uric Acid Calcium 10.8 H Phosphorus Ferritin AST ALT C-Reactive Protein Total Protein Total Protein (PEP) Albumin Globulin Procalcitonin 0.31 H PTH Intact Urine Blood Urine Mucus CMV IgG Ab - Diagnostic Findings Chest x-ray: report reviewed, image reviewed CT scan - chest: report reviewed, image reviewed Additional studies: Results Of the carotid Doppler study, ultrasound of the abdomen and bladder, echocardiogram, chest CT without contrast, and EKG reviewed Assessment and Plan Plan: Assessment: #1. Shortness of breath, possibly related to mild interstitial pneumonitis. CT chest without contrast showed patchy, pulmonary interstitial infiltrates, nonspecific. Patient is currently on a combination of azithromycin and Rocephin, Acyclovir and Bactrim DS. Pro-calcitonin level was 0.31 Legionella urine antigen was negative, COVID-19 PCR was negative mycoplasma IgG and IgM were negative. #2. History of multiple myeloma with recent progression, and patient is on Empliciti. Patient is being considered for initiation of CAR-T therapy #3. Right arm pain, asymmetric blood pressure, no evidence of subclavian steal syndrome, vascular surgery is following #4. Acute kidney injury #5. Possible tumor lysis syndrome #6. Hypercalcemia secondary to multiple myeloma, improving #7. Chronic anemia #8. Hypertension #9. Depression #10. Lifetime nonsmoker Plan: Patient's chest x-ray, CT chest, labs, and all other diagnostics have been reviewed Patient has exertional dyspnea, but no cough, no fever, he remains on empiric antibiotics So far all of his diagnostic for Legionella pneumonia, atypical pneumonia, COVID-19, all negative Patient is already on Decadron, antibiotics, no clear evidence of heart failure or pneumonia Other than exertional dyspnea patient is not having any cough, no phlegm production, no fever or chills ID service is following Continue antibiotics per ID service recommendations Pulmonary service will follow on as-needed basis I performed a history & physical examination of the patient and discussed their management with my nurse practitioner, Emmanuelle Baird. I reviewed the nurse pra ctitioner's note and agree with the documented findings and plan of care. Lung sounds are positive for diminished breath sounds throughout the lung lion. The findings and the impression was discussed with the patient. I attest to the documentation by the nurse practitioner. Time with Patient: Greater than 30
--- NOTE | 2021-02-07 18:49 | PN ---
PROGRESS NOTE DATE OF SERVICE: 02/07/2021 REASON FOR FOLLOWUP: Abnormal CT and a question of pneumonia. INTERVAL HISTORY: The patient is afebrile. Still complaining of shortness of breath on exertion. No chest pain. No cough. No vomiting. No abdominal pain. No diarrhea. PHYSICAL EXAMINATION: Blood pressure 123/65 with a pulse of 90, temperature 98.1. He is 93% on room air. General description is a middle-aged male lying in bed in no distress. Respiratory system unlabored breathing, decreased intensity of breath sounds. No wheeze. Heart S1, S2. Regular rate and rhythm. Abdomen soft, no tenderness. LABS: Hemoglobin 7.4, white count 2.1. DIAGNOSTIC IMPRESSION AND PLAN: Patient with shortness of breath. Clinically not behaving as pneumonia. Patient may benefit from a bronchoscopy for which pulmonary has been consulted. Continue current antibiotics on Rocephin and Zithromax. Monitor clinical course closely. MMODL / IJN: [id number] /
--- NOTE | 2021-02-07 18:58 | PN ---
PROGRESS NOTE Patient is seen for followup for acute kidney injury, mostly prerenal and associated with low blood pressure, possible element of tumor lysis syndrome. Patient is maintained on IV fluids. Serum creatinine had improved to 1.5 yesterday on February 06. I do not have labs from today. PHYSICAL EXAMINATION: Patient is comfortable, lying in bed, not in any acute distress. Blood pressure 109/85, heart rate 99 per minute. Patient is afebrile. Examination of the heart S1, S2. Examination of bilateral breath sounds are heard. Abdomen is soft, nontender. Examination of lower extremities shows no significant edema FINANCIAL ASSOCIATE exam grossly intact. LAB: Show hemoglobin 7.6 and on February 06 serum creatinine down to 1.53, potassium 4.9. ASSESSMENT: 1. Acute kidney injury, prerenal associated with low blood pressure, hypercalcemia as well as possible tumor lysis syndrome, currently improved, maintained on IV fluids. I will continue with the IV fluids for now. 2. Hypercalcemia associated with multiple myeloma status post pamidronate, currently improved. 3. Multiple myeloma with recurrence, restarted chemotherapy, possible underlying tumor lysis syndrome. 4. Bilateral lung infiltrates maintained on antibiotics, being followed by ID. No significant respiratory distress at this point. PLAN: Check labs in a.m. Continue with IV fluids for now. MMODL / IJN: [id number] /
[2021-02-07] MEDS: AZITHROMYCIN 500 MG in SODIUM CHLORIDE 0.9% 250 ML IVPB SCH (19:25)
[2021-02-07] MEDS: POMALYST PO SCH (19:26)
[2021-02-07] MEDS: ZOLPIDEM 5 MG TAB PO SCH (21:21)
[2021-02-07] MEDS: ESCITALOPRAM 20 MG TAB PO SCH (21:22)
[2021-02-07] MEDS: MIRTAZAPINE 15 MG TAB PO SCH (21:22)
--- NOTE | 2021-02-07 23:19 | P.PN ---
Subjective This is a pleasant 50 years old male with multiple medical problems including multiple myeloma presents with acute kidney injury secondary to hypotension and hypercalcemia and currently is been followed closely by nephrology team while continued on normal saline at 75 mL/h. Also hematology/oncology team following the patient status post chemotherapy for hypercalcemia and status post pamidronate today. Pulmonary team and ID team for bilateral pneumonia, there is abnormal CT but clinically complaining only from exertional dyspnea. No fever or coughing. Patient currently current with ceftriaxone and Zithromax. Also patient is on home medication of acyclovir and Bactrim. Patient also continued on dexamethasone Other than that he is hemodynamically stable. No more fever. He is on room air. He has mild pancytopenia. Creatinine 1.5, calcium elevated at 10.8. Ejection fraction is 55-60%. CT of the chest showed patchy ground glass interstitial infiltrates., On 02/04 Objective - Vital Signs Vital signs: Vital Signs Temp 98.1 F 02/07/21 11:09 Pulse 93 02/07/21 11:09 Resp 16 02/07/21 11:09 BP 123/65 02/07/21 11:09 Pulse Ox 96 02/07/21 11:09 Intake & Output 02/06/21 02/07/21 02/07/21 18:59 06:59 18:59 Intake Total 50 600 Balance 50 600 Weight 95.254 kg Intake: Intake, IV Titration 50 600 Amount Sodium Chloride 0.9% 1, 600 000 ml @ 75 mls/hr IV . [id number] [facility] Rx#:[id number] cefTRIAXone 1 gm In 50 Sodium Chloride 0.9% 50 ml @ 100 mls/hr IVPB Q24H [facility] Rx#:[id number] Other: Voiding Method Toilet Toilet # Voids 1 - Exam GENERAL: The patient is alert and oriented x3, not in any acute distress. Well developed, well nourished. HEENT: Pupils are round and equally reacting to light. EOMI. No scleral icterus. No conjunctival pallor. Normocephalic, atraumatic. No pharyngeal erythema. No thyromegaly. CARDIOVASCULAR: S1 and S2 present. No murmurs, rubs, or gallops. PULMONARY: Chest is clear to auscultation, no wheezing or crackles. ABDOMEN: Soft, nontender, nondistended, normoactive bowel sounds. No palpable organomegaly. MUSCULOSKELETAL: No joint swelling or deformity. EXTREMITIES: No cyanosis, clubbing, or pedal edema. NEUROLOGICAL: Gross neurological examination did not reveal any focal deficits. SKIN: No rashes. no petechiae. - Labs CBC & Chem 7: 02/07/21 07:00 02/06/21 10:04 Labs: Abnormal Lab Results - Last 24 Hours (Table) 02/07/21 Range/Units 07:00 WBC 2.1 L (3.8-10.6) k/uL RBC 2.02 L (4.30-5.90) m/uL Hgb 7.6 L (13.0-17.5) gm/dL Hct 23.1 L (39.0-53.0) % MCV 113.9 H (80.0-100.0) fL MCH 37.7 H (25.0-35.0) pg RDW 17.0 H (11.5-15.5) % Plt Count 59 L (150-450) k/uL Neutrophils # (Manual) 0.90 L (1.3-7.7) k/uL Lymphocytes # (Manual) 0.63 L (1.0-4.8) k/uL Myelocytes # (Manual) 0.02 H (0) k/uL Macrocytosis Marked A Microbiology - Last 24 Hours (Table) 02/06/21 13:45 Gram Stain - Preliminary Sputum Sputum Culture - Preliminary 02/04/21 20:09 Blood Culture - Preliminary Blood No Growth after 48 hours 02/04/21 17:33 Blood Culture - Preliminary Blood No Growth after 48 hours Assessment and Plan Assessment: Bilateral interstitial pneumonia. With bilateral groundglass and interstitial infiltrates. Acute kidney injury secondary to hypercalcemia and hypotension Multiple myeloma on chemotherapy Hypercalcemia and hyperparathyroidism status post pamidronate Plan: This is a pleasant 50 years old male who presents with pneumonia, PAUL and hypercalcemia and multiple myeloma Continue with antibiotics, currently on ceftriaxone and Zithromax. ID and pulmonary team on the case. Continue with IV hydration, nephrology team on the case Continue chemotherapy per hematology/oncology team will follow the patient closely Labs and medication were reviewed.. Continue same treatment. Continue with symptomatic treatment. Resume home medication. Monitor lytes and vitals. DVT and GI prophylaxis. Further recommendationsas per clinical course of the patient DVT prophylaxis: Subcutaneous heparin GI Prophylaxis: ppi
[2021-02-08 05:52] LABS: ALT <5 U/L (10-49); AST <5 U/L (14-35); African American GFR (CKD) 62.5 (60.0-200.0); Albumin 3.6 g/dL (3.8-4.9); Albumin/Globulin Ratio 2.25 (1.60-3.17); Alkaline Phosphatase 62 U/L (41-126); BUN/Creat Ratio 11.53 Ratio (12.00-20.00); Blood Urea Nitrogen 17.3 mg/dL (9.0-27.0); Calcium 9.6 mg/dL (8.7-10.3); Carbon Dioxide 14.8 mmol/L (21.6-31.8); Chloride 107 mmol/L (96-109); Globulin 1.6 g/dL (1.6-3.3); Glucose 115 mg/dL (70-110); Non-African American GFR(CKD) 53.9 (60.0-200.0); Phosphorus 2.8 mg/dL (2.4-5.1); Potassium 4.8 mmol/L (3.5-5.5); Sodium 137 mmol/L (135-145); Total Protein 5.2 g/dL (6.2-8.2); Uric Acid <0.5 mg/dL (3.7-8.7)
[2021-02-08 06:20] LABS: Phosphorus 3.5 mg/dL (2.5-4.5); Uric Acid 1.5 mg/dL (3.5-8.5)
[2021-02-08 06:21] LABS: ALT 12 U/L (4-49); AST 11 U/L (17-59); African American GFR (CKD) >90 (>60 ml/min/1.73 sqM); Albumin 3.3 g/dL (3.5-5.0); Albumin/Globulin Ratio 1.5; Alkaline Phosphatase 67 U/L (38-126); Anion Gap 9 mmol/L; Blood Urea Nitrogen 22 mg/dL (9-20); Carbon Dioxide 17 mmol/L (22-30); Chloride 110 mmol/L (98-107); Globulin 2.2 g/dL; Glucose 204 mg/dL (74-99); Non-African American GFR(CKD) 79 (>60 ml/min/1.73 sqM); Potassium 4.5 mmol/L (3.5-5.1); Sodium 136 mmol/L (137-145); Total Bilirubin 0.7 mg/dL (0.2-1.3); Total Protein 5.5 g/dL (6.3-8.2)
[2021-02-08 06:34] LABS: Anisocytosis Slight; HGB 7.7 gm/dL (13.0-17.5); MCH 38.2 pg (25.0-35.0); MCHC 34.9 g/dL (31.0-37.0); MCV 109.3 fL (80.0-100.0); Mean Platelet Volume 8.4; RBC 2.01 m/uL (4.30-5.90); RDW 16.6 % (11.5-15.5); WBC 2.5 k/uL (3.8-10.6)
[2021-02-08 06:44] LABS: Macrocytosis Marked; Platelet Count 69 k/uL (150-450)
[2021-02-08] MEDS: PANTOPRAZOLE 40 MG TABLET PO SCH (08:05)
[2021-02-08] MEDS: ACYCLOVIR 200 MG CAP PO SCH ×2 (08:05→21:49)
[2021-02-08] MEDS: CHOLECALCIFEROL 25 MCG (1000 IU) TABLET PO SCH (08:06)
[2021-02-08] MEDS: HEPARIN SODIUM,PORCINE/PF 5,000 UNIT/0.5 ML SYRINGE SQ SCH ×2 (08:06→21:49)
[2021-02-08] MEDS: CYANOCOBALAMIN 500 MCG TAB PO SCH (08:06)
[2021-02-08] MEDS: SODIUM CHLORIDE 0.9% 1,000 ML IV SCH (08:08)
[2021-02-08] MEDS: DEXTROSE 5% IN WATER 1,000 ML with SODIUM BICARB (1 MEQ/ML) 150 ML IV SCH (11:38)
--- NOTE | 2021-02-08 12:28 | P.PN ---
Subjective Progress Note Date: 02/08/21 The patient appears to be fairly comfortable at rest. No fever/chills/nausea/vomiting. He does have some cough and reports better expectoration. He continues to complain of shortness of breath on exertion with decreased endurance. Objective - Vital Signs Vital signs: Vital Signs Temp 98.0 F 02/08/21 11:13 Pulse 101 H 02/08/21 11:13 Resp 16 02/08/21 11:13 BP 150/67 02/08/21 11:13 Pulse Ox 97 02/08/21 11:13 Intake & Output 02/07/21 02/08/21 02/08/21 18:59 06:59 18:59 Intake Total 1150 Balance 1150 Weight 95.254 kg Intake: Intake, IV Titration 1150 Amount Azithromycin 500 mg In 200 Sodium Chloride 0.9% 250 ml @ 250 mls/hr IVPB Q24H [facility] Rx#:[id number] Sodium Chloride 0.9% 1, 900 000 ml @ 75 mls/hr IV . [id number] [facility] Rx#:[id number] cefTRIAXone 1 gm In 50 Sodium Chloride 0.9% 50 ml @ 100 mls/hr IVPB Q24H [facility] Rx#:[id number] Other: # Voids 3 - Constitutional General appearance: Present: no acute distress - EENT Eyes: Present: EOMI, PERRLA ENT: Present: hearing grossly normal, normal oropharynx - Respiratory Respiratory: bilateral: CTA - Cardiovascular Rhythm: regular Heart sounds: normal: S1, S2 - Gastrointestinal General gastrointestinal: Present: normal bowel sounds, soft - Integumentary Integumentary: Present: normal - Neurologic Neurologic: Present: CNII-XII intact - Musculoskeletal Musculoskeletal: Present: generalized weakness, strength equal bilaterally - Psychiatric Psychiatric: Present: A&O x's 3, appropriate affect - Labs CBC & Chem 7: 02/08/21 05:22 02/08/21 05:22 Labs: Abnormal Lab Results - Last 24 Hours (Table) 02/04/21 02/07/21 02/07/21 Range/Units 20:30 07:00 07:00 WBC (3.8-10.6) k/uL RBC (4.30-5.90) m/uL Hgb (13.0-17.5) gm/dL Hct (39.0-53.0) % MCV (80.0-100.0) fL MCH (25.0-35.0) pg RDW (11.5-15.5) % Plt Count (150-450) k/uL Macrocytosis Sodium (137-145) mmol/L Chloride (98-107) mmol/L Carbon Dioxide 14.8 L (21.6-31.8) mmol/L Anion Gap 15.20 H (4.00-12.00) mmol/L BUN (9-20) mg/dL Est GFR (CKD-EPI)NonAf 53.9 L (60.0-200.0) BUN/Creatinine Ratio 11.53 L (12.00-20.00) Ratio Glucose 115 H (70-110) mg/dL Uric Acid (3.5-8.5) mg/dL AST <5 L (14-35) U/L ALT <5 L (10-49) U/L Total Protein 5.2 L (6.2-8.2) g/dL Albumin 3.6 L (3.8-4.9) g/dL Procalcitonin 0.24 H (0.02-0.09) ng/mL Free [place] LC, Quant 88.78 H (0.33-1.94) mg/dL Free [place] LC, Quant <0.15 L (0.57-2.63) mg/dL 02/08/21 02/08/21 02/08/21 Range/Units 05:22 05:22 05:22 WBC 2.5 L (3.8-10.6) k/uL RBC 2.01 L (4.30-5.90) m/uL Hgb 7.7 L (13.0-17.5) gm/dL Hct 22.0 L (39.0-53.0) % MCV 109.3 H (80.0-100.0) fL MCH 38.2 H (25.0-35.0) pg RDW 16.6 H (11.5-15.5) % Plt Count 69 L (150-450) k/uL Macrocytosis Marked A Sodium 136 L (137-145) mmol/L Chloride 110 H (98-107) mmol/L Carbon Dioxide 17 L (21.6-31.8) mmol/L Anion Gap (4.00-12.00) mmol/L BUN 22 H (9-20) mg/dL Est GFR (CKD-EPI)NonAf (60.0-200.0) BUN/Creatinine Ratio (12.00-20.00) Ratio Glucose 204 H (70-110) mg/dL Uric Acid 1.5 L (3.5-8.5) mg/dL AST 11 L (14-35) U/L ALT (10-49) U/L Total Protein 5.5 L (6.2-8.2) g/dL Albumin 3.3 L (3.8-4.9) g/dL Procalcitonin (0.02-0.09) ng/mL Free [place] LC, Quant (0.33-1.94) mg/dL Free [place]ambda LC, Quant (0.57-2.63) mg/dL Microbiology - Last 24 Hours (Table) 02/06/21 13:45 Gram Stain - Final Sputum Sputum Culture - Final 02/04/21 20:09 Blood Culture - Preliminary Blood No Growth after 72 hours 02/04/21 17:33 Blood Culture - Preliminary Blood No Growth after 72 hours Assessment and Plan (1) Dyspnea Narrative/Plan: The patient's is ready status at rest is significantly improved compared to the outpatient setting. He still complains of shortness of breath with any exertion including just walking to the bathroom. At this time, clinically, a pneumonia appears to be most likely, with atypical presentation given some improvement with antibiotics. Cultures are pending. Sputum Gram stain did show gram- positive and gram-negative organisms - Continue antibiotics. Outpatient antibiotic regimen to be decided by ID - Drug-induced pneumonitis as well as fluid overload and PE are essentially ruled out. Current Visit: Yes Status: Acute Code(s): R06.00 - DYSPNEA, UNSPECIFIED SNOMED Code(s): 228685728 (2) Acute kidney injury Narrative/Plan: This continues to improve with Gentle hydration, 1 dose of rasburicase, and correction of hypercalcemia. Creatinine was down to 1.15 today. Continue to monitor, now and as an outpatient Current Visit: Yes Status: Acute Code(s): N17.9 - ACUTE KIDNEY FAILURE, UNSPECIFIED SNOMED Code(s): 27901135 (3) Multiple myeloma Narrative/Plan: The patient's protein electrophores Studies are partially resulted. His kappa light chain levels were 88 mg/dl , versus 44.7 mg/dl on 12/24/20. - The results and implications were discussed with the patient. He was advised that even though the levels are higher, he has just been on his current regimen for 2 weeks, which is not sufficient time for significant effect to occur. In addition, since prior levels were done on 12/24/20, and he started treatment in the beginning of 02/10 it is certainly possible that the kappa light chain was actually higher than his current level prior to starting treatment. - Therefore as long as there is no evidence of any progressive acute and organ damage, the plan would be to continue his current regimen. The patient did have elevation of creatinine and calcium at the time of presentation, but these have responded quite well to supportive measures. Current Visit: Yes Status: Chronic Priority: High Code(s): C90.00 - MULTIPLE MYELOMA NOT HAVING ACHIEVED REMISSION SNOMED Code(s): 128252862 (4) Pancytopenia due to antineoplastic chemotherapy Narrative/Plan: His pancytopenia is likely due in part to his ongoing myeloma regimen, but is most likely multifactorial, due to underlying myeloma as well as possible inter current infection. Counts are in a safe range. Continue to monitor and transfuse to keep hemoglobin greater than 7 and platelets greater than 10. Okay to continue anticoagulation as long aspirated count of greater than 50,000. At this time counts are felt to be adequate enough to continue his myeloma regimen. Current Visit: Yes Status: Acute Code(s): D61.810 - ANTINEOPLASTIC CHEMOTHERAPY INDUCED PANCYTOPENIA; T45.1X5A - ADVERSE EFFECT OF ANTINEOPLASTIC AND IMMUNOSUP DRUGS, INIT SNOMED Code(s): 205782719621911
--- NOTE | 2021-02-08 13:24 | PN ---
PROGRESS NOTE DATE OF SERVICE: 02/08/2021 REASON FOR FOLLOWUP: Possible pneumonia. INTERVAL HISTORY: Patient is afebrile. The patient still complaining of shortness of breath on minimal exertion. He did have a cough and did have minimal sputum. No vomiting. No abdominal pain. No diarrhea. PHYSICAL EXAMINATION: Blood pressure 150/67, pulse 101. Temperature 98. He is 97% on room air. General description is a middle-aged male lying in bed in no distress. Respiratory system: Unlabored breathing, decreased intensity of breath sounds. No wheeze. Heart S1, S2. Regular rate and rhythm. Abdomen soft, no tenderness. LABS: Hemoglobin 7.7, white count 2.5, creatinine is 1.10. Procalcitonin 0.24. Urine for legionella antigen is negative. DIAGNOSTIC IMPRESSION AND PLAN: Patient with shortness of breath, multifactorial. Clinical suspicion of not entirely excluded. The patient may benefit from bronchoscopy and bronch lavage. Currently covered with empiric antibiotics to continue and monitor clinical course closely. MMODL / IJN: [id number] /
--- NOTE | 2021-02-08 14:06 | P.PN ---
Subjective This is a pleasant 50 years old male with multiple medical problems including multiple myeloma presents with acute kidney injury secondary to hypotension and hypercalcemia and currently is been followed closely by nephrology team while continued on normal saline at 75 mL/h. Also hematology/oncology team following the patient status post chemotherapy for hypercalcemia and status post pamidronate today. Pulmonary team and ID team for bilateral pneumonia, there is abnormal CT but clinically complaining only from exertional dyspnea. No fever or coughing. Patient currently current with ceftriaxone and Zithromax. Also patient is on home medication of acyclovir and Bactrim. Patient also continued on dexamethasone Other than that he is hemodynamically stable. No more fever. He is on room air. He has mild pancytopenia. Creatinine 1.5, calcium elevated at 10.8. Ejection fraction is 55-60%. CT of the chest showed patchy ground glass interstitial infiltrates., On 02/0402/08/2021 Patient still with exertional dyspnea. Very occasional dry coughing. No chest pain. No other specific complaints. He remains on room air and vitals are stable. No more fever. Labs are not concerning, he has stable pancytopenia, calcium is back to normal at 9. Creatinine improved significantly to 1.1. He has some mild evidence of acidemia with low carbon dioxide and patient was started on some sodium bicarbonate drip by nephrology team today. He remains on ceftriaxone and Zithromax. Dexamethasone which is a home medication. IV fluid. Several consultants on the case including pulmonary, ID, nephrology and oncology/hematology. Objective - Vital Signs Vital signs: Vital Signs Temp 98.0 F 02/08/21 11:13 Pulse 101 H 02/08/21 11:13 Resp 16 02/08/21 11:13 BP 150/67 02/08/21 11:13 Pulse Ox 97 02/08/21 11:13 Intake & Output 02/07/21 02/08/21 02/08/21 18:59 06:59 18:59 Intake Total 1150 Balance 1150 Weight 95.254 kg Intake: Intake, IV Titration 1150 Amount Azithromycin 500 mg In 200 Sodium Chloride 0.9% 250 ml @ 250 mls/hr IVPB Q24H [facility] Rx#:[id number] Sodium Chloride 0.9% 1, 900 000 ml @ 75 mls/hr IV . [id number] [facility] Rx#:[id number] cefTRIAXone 1 gm In 50 Sodium Chloride 0.9% 50 ml @ 100 mls/hr IVPB Q24H [facility] Rx#:[id number] Other: # Voids 3 - Exam GENERAL: The patient is alert and oriented x3, not in any acute distress. Well developed, well nourished. HEENT: Pupils are round and equally reacting to light. EOMI. No scleral icterus. No conjunctival pallor. Normocephalic, atraumatic. No pharyngeal erythema. No thyromegaly. CARDIOVASCULAR: S1 and S2 present. No murmurs, rubs, or gallops. PULMONARY: Chest is clear to auscultation, no wheezing or crackles. ABDOMEN: Soft, nontender, nondistended, normoactive bowel sounds. No palpable organomegaly. MUSCULOSKELETAL: No joint swelling or deformity. EXTREMITIES: No cyanosis, clubbing, or pedal edema. NEUROLOGICAL: Gross neurological examination did not reveal any focal deficits. SKIN: No rashes. no petechiae. - Labs CBC & Chem 7: 02/08/21 05:22 02/08/21 05:22 Labs: Abnormal Lab Results - Last 24 Hours (Table) 02/04/21 02/07/21 02/07/21 Range/Units 20:30 07:00 07:00 WBC (3.8-10.6) k/uL RBC (4.30-5.90) m/uL Hgb (13.0-17.5) gm/dL Hct (39.0-53.0) % MCV (80.0-100.0) fL MCH (25.0-35.0) pg RDW (11.5-15.5) % Plt Count (150-450) k/uL Macrocytosis Sodium (137-145) mmol/L Chloride (98-107) mmol/L Carbon Dioxide 14.8 L (21.6-31.8) mmol/L Anion Gap 15.20 H (4.00-12.00) mmol/L BUN (9-20) mg/dL Est GFR (CKD-EPI)NonAf 53.9 L (60.0-200.0) BUN/Creatinine Ratio 11.53 L (12.00-20.00) Ratio Glucose 115 H (70-110) mg/dL Uric Acid (3.5-8.5) mg/dL AST <5 L (14-35) U/L ALT <5 L (10-49) U/L Total Protein 5.2 L (6.2-8.2) g/dL Albumin 3.6 L (3.8-4.9) g/dL Procalcitonin 0.24 H (0.02-0.09) ng/mL Free [place] LC, Quant 88.78 H (0.33-1.94) mg/dL Free [place]ambda LC, Quant <0.15 L (0.57-2.63) mg/dL 02/08/21 02/08/21 02/08/21 Range/Units 05:22 05:22 05:22 WBC 2.5 L (3.8-10.6) k/uL RBC 2.01 L (4.30-5.90) m/uL Hgb 7.7 L (13.0-17.5) gm/dL Hct 22.0 L (39.0-53.0) % MCV 109.3 H (80.0-100.0) fL MCH 38.2 H (25.0-35.0) pg RDW 16.6 H (11.5-15.5) % Plt Count 69 L (150-450) k/uL Macrocytosis Marked A Sodium 136 L (137-145) mmol/L Chloride 110 H (98-107) mmol/L Carbon Dioxide 17 L (21.6-31.8) mmol/L Anion Gap (4.00-12.00) mmol/L BUN 22 H (9-20) mg/dL Est GFR (CKD-EPI)NonAf (60.0-200.0) BUN/Creatinine Ratio (12.00-20.00) Ratio Glucose 204 H (70-110) mg/dL Uric Acid 1.5 L (3.5-8.5) mg/dL AST 11 L (14-35) U/L ALT (10-49) U/L Total Protein 5.5 L (6.2-8.2) g/dL Albumin 3.3 L (3.8-4.9) g/dL Procalcitonin (0.02-0.09) ng/mL Free [place] LC, Quant (0.33-1.94) mg/dL Free Lambda LC, Quant (0.57-2.63) mg/dL Microbiology - Last 24 Hours (Table) 02/06/21 13:45 Gram Stain - Final Sputum Sputum Culture - Final 02/04/21 20:09 Blood Culture - Preliminary Blood No Growth after 72 hours 02/04/21 17:33 Blood Culture - Preliminary Blood No Growth after 72 hours Assessment and Plan Assessment: Bilateral interstitial pneumonia. With bilateral groundglass and interstitial infiltrates. Acute kidney injury secondary to hypercalcemia and hypotension, improving Multiple myeloma on chemotherapy Hypercalcemia and hyperparathyroidism status post pamidronate Ischemia Pancytopenia secondary to multiple myeloma and medication Plan: This is a pleasant 50 years old male who presents with pneumonia, PAUL and hypercalcemia and multiple myeloma Continue with antibiotics, currently on ceftriaxone and Zithromax. ID and pulmonary team on the case. Continue with IV hydration, nephrology team on the case Continue chemotherapy per hematology/oncology team will follow the patient closely Labs and medication were reviewed.. Continue same treatment. Continue with symptomatic treatment. Resume home medication. Monitor lytes and vitals. DVT and GI prophylaxis. Further recommendationsas per clinical course of the patient DVT prophylaxis: Subcutaneous heparin GI Prophylaxis: ppi
--- NOTE | 2021-02-08 15:42 | PN ---
PROGRESS NOTE Patient is seen for followup for acute kidney injury metabolic acidosis. The patient's renal function has improved with creatinine now to 1.1. However, his CO2 went down to 14.8 yesterday. Today it is at 17. He is not complaining of any significant symptoms. The patient remains on normal saline at 75 mL an hour. He has had good urine output. PHYSICAL EXAMINATION: On examination today, blood pressure is 150/67, heart rate 101 per minute, he is afebrile. Examination of the heart S1, S2. Examination of lungs, bilateral breath sounds are heard, decreased breath sounds at bases. Abdomen is soft, nontender. Examination of lower extremities shows no significant edema. CUSHION INSTALLER exam grossly intact. LAB: Show sodium 136, potassium 4.5, chloride 110, CO2 17, BUN 22, creatinine 1.1, hemoglobin is 7.7 g/dL. ASSESSMENT: 1. Acute kidney injury associated with low blood pressure, hypovolemia, hypercalcemia as well as possible tumor lysis syndrome, currently improved. 2. Metabolic acidosis associated with most likely tumor lysis syndrome. Change IV fluids to IV bicarb. 3. Multiple myeloma, started on chemotherapy. This is recurrence. The patient has had a previous bone marrow transplant. 4. Anemia, multifactorial. 5. Hypercalcemia associated with multiple myeloma status post pamidronate. Calcium now down to 9.0. PTH is appropriately low. PLAN: Change IV fluids to IV bicarb. Repeat labs in a.m. Encourage increased oral intake. MMODL / IJN: [id number] /
[2021-02-08] MEDS: AZITHROMYCIN 500 MG in SODIUM CHLORIDE 0.9% 250 ML IVPB SCH (18:03)
[2021-02-08] MEDS: POMALYST PO SCH (18:03)
[2021-02-08] MEDS: HYDROcodone/APAP 10-325MG 1 EACH TAB PO PRN (21:48)
[2021-02-08] MEDS: ZOLPIDEM 5 MG TAB PO SCH (21:49)
[2021-02-08] MEDS: MIRTAZAPINE 15 MG TAB PO SCH (21:49)
[2021-02-08] MEDS: ESCITALOPRAM 20 MG TAB PO SCH (21:49)
[2021-02-09] MEDS: DEXTROSE 5% IN WATER 1,000 ML with SODIUM BICARB (1 MEQ/ML) 150 ML IV SCH ×2 (02:37→15:49)
--- NOTE | 2021-02-09 08:45 | XR ---
EXAMINATION TYPE: XR chest 2V DATE OF EXAM: 02/09/2021 COMPARISON: Chest x-ray 02/04/2021 HISTORY: Pneumonia TECHNIQUE: Frontal and lateral views of the chest are obtained. FINDINGS: Bilateral groundglass opacity is noted within the lungs. There is no evident pneumothorax or pleural effusion. Cardiac mediastinal silhouette is stable. Bones are unchanged. IMPRESSION: Correlate for pneumonia, consider Covid 19 infection
[2021-02-09] MEDS: ACYCLOVIR 200 MG CAP PO SCH ×2 (09:12→20:40)
[2021-02-09] MEDS: PANTOPRAZOLE 40 MG TABLET PO SCH (09:12)
[2021-02-09] MEDS: HEPARIN SODIUM,PORCINE/PF 5,000 UNIT/0.5 ML SYRINGE SQ SCH ×2 (09:12→20:41)
[2021-02-09] MEDS: CYANOCOBALAMIN 500 MCG TAB PO SCH (09:12)
[2021-02-09] MEDS: CHOLECALCIFEROL 25 MCG (1000 IU) TABLET PO SCH (09:12)
[2021-02-09] MEDS: SULFAMETHOX-TMP 800-160MG 1 EACH TAB PO SCH (09:13)
[2021-02-09 09:38] LABS: Anisocytosis Slight; HCT 20.1 % (39.0-53.0); MCH 37.7 pg (25.0-35.0); MCHC 34.4 g/dL (31.0-37.0); MCV 109.8 fL (80.0-100.0); Macrocytosis Marked; RBC 1.83 m/uL (4.30-5.90); RDW 17.1 % (11.5-15.5); WBC 1.5 k/uL (3.8-10.6)
[2021-02-09 09:40] LABS: Platelet Count 59 k/uL (150-450)
[2021-02-09 09:43] LABS: HGB 6.9 gm/dL (13.0-17.5)
[2021-02-09 09:47] LABS: ALT 15 U/L (4-49); AST 11 U/L (17-59); African American GFR (CKD) >90 (>60 ml/min/1.73 sqM); Albumin 3.1 g/dL (3.5-5.0); Albumin/Globulin Ratio 1.4; Alkaline Phosphatase 57 U/L (38-126); Anion Gap 8 mmol/L; Blood Urea Nitrogen 18 mg/dL (9-20); Calcium 8.6 mg/dL (8.4-10.2); Carbon Dioxide 22 mmol/L (22-30); Chloride 106 mmol/L (98-107); Globulin 2.2 g/dL; Glucose 168 mg/dL (74-99); Non-African American GFR(CKD) 82 (>60 ml/min/1.73 sqM); Potassium 3.3 mmol/L (3.5-5.1); Sodium 136 mmol/L (137-145); Total Bilirubin 0.7 mg/dL (0.2-1.3); Total Protein 5.3 g/dL (6.3-8.2)
[2021-02-09] MEDS ORDERED: POTASSIUM CHLORIDE ER 20 MEQ TAB.ER PO STA (10:07)
--- NOTE | 2021-02-09 12:59 | P.PN ---
Subjective This is a pleasant 50 years old male with multiple medical problems including multiple myeloma presents with acute kidney injury secondary to hypotension and hypercalcemia and currently is been followed closely by nephrology team while continued on normal saline at 75 mL/h. Also hematology/oncology team following the patient status post chemotherapy for hypercalcemia and status post pamidronate today. Pulmonary team and ID team for bilateral pneumonia, there is abnormal CT but clinically complaining only from exertional dyspnea. No fever or coughing. Patient currently current with ceftriaxone and Zithromax. Also patient is on home medication of acyclovir and Bactrim. Patient also continued on dexamethasone Other than that he is hemodynamically stable. No more fever. He is on room air. He has mild pancytopenia. Creatinine 1.5, calcium elevated at 10.8. Ejection fraction is 55-60%. CT of the chest showed patchy ground glass interstitial infiltrates., On 02/0402/08/2021 Patient still with exertional dyspnea. Very occasional dry coughing. No chest pain. No other specific complaints. He remains on room air and vitals are stable. No more fever. Labs are not concerning, he has stable pancytopenia, calcium is back to normal at 9. Creatinine improved significantly to 1.1. He has some mild evidence of acidemia with low carbon dioxide and patient was started on some sodium bicarbonate drip by nephrology team today. He remains on ceftriaxone and Zithromax. Dexamethasone which is a home medication. IV fluid. Several consultants on the case including pulmonary, ID, nephrology and oncology/hematology. 02/09/2021 Patient clinically the same with exertional dyspnea. His still mildly tachycardic and febrile and rest of vitals are stable. He still has pancytopenia with WBC 1.5, hemoglobin 6.9 and a platelet 59. H ematology team on the case. Creatinine 1.0. Chest x-ray showing worsening bilateral infiltrates, coronavirus detected is negative. We have reordered procalcitonin and proBNP. Patient is on antibiotics with ceftriaxone and Zithromax, acyclovir and Bactrim. ID team and pulmonary team on the case. Objective - Vital Signs Vital signs: Vital Signs Temp 98.6 F 02/09/21 12:40 Pulse 107 H 02/09/21 12:40 Resp 18 02/09/21 12:40 BP 112/55 02/09/21 12:40 Pulse Ox 97 02/09/21 12:40 Intake & Output 02/08/21 02/09/21 02/09/21 18:59 06:59 18:59 Intake Total 900 Balance 900 Intake: Intake, IV Titration 900 Amount Dextrose 5% in Water 1, 900 000 ml @ 75 mls/hr IV . [id number] [facility] with Sodium Bicarb (1 Meq/ml) 150 ml Rx#:[id number] Other: Voiding Method Toilet # Voids 2 - Exam GENERAL: The patient is alert and oriented x3, not in any acute distress. Well developed, well nourished. HEENT: Pupils are round and equally reacting to light. EOMI. No scleral icterus. No conjunctival pallor. Normocephalic, atraumatic. No pharyngeal erythema. No thyromegaly. CARDIOVASCULAR: S1 and S2 present. No murmurs, rubs, or gallops. PULMONARY: Chest is clear to auscultation, no wheezing or crackles. ABDOMEN: Soft, nontender, nondistended, normoactive bowel sounds. No palpable organomegaly. MUSCULOSKELETAL: No joint swelling or deformity. EXTREMITIES: No cyanosis, clubbing, or pedal edema. NEUROLOGICAL: Gross neurological examination did not reveal any focal deficits. SKIN: No rashes. no petechiae. - Labs CBC & Chem 7: 02/09/21 09:05 02/09/21 09:05 Labs: Abnormal Lab Results - Last 24 Hours (Table) 02/09/21 02/09/21 Range/Units 09:05 09:05 WBC 1.5 L (3.8-10.6) k/uL RBC 1.83 L (4.30-5.90) m/uL Hgb 6.9 L* (13.0-17.5) gm/dL Hct 20.1 L (39.0-53.0) % MCV 109.8 H (80.0-100.0) fL MCH 37.7 H (25.0-35.0) pg RDW 17.1 H (11.5-15.5) % Plt Count 59 L (150-450) k/uL Macrocytosis Marked A Sodium 136 L (137-145) mmol/L Potassium 3.3 L (3.5-5.1) mmol/L Glucose 168 H (74-99) mg/dL AST 11 L (17-59) U/L Total Protein 5.3 L (6.3-8.2) g/dL Albumin 3.1 L (3.5-5.0) g/dL Microbiology - Last 24 Hours (Table) 02/04/21 20:09 Blood Culture - Preliminary Blood No Growth after 96 hours 02/04/21 17:33 Blood Culture - Preliminary Blood No Growth after 96 hours 02/06/21 13:45 Gram Stain - Final Sputum Sputum Culture - Final Assessment and Plan Assessment: Bilateral interstitial pneumonia. With bilateral groundglass and interstitial infiltrates. Acute kidney injury secondary to hypercalcemia and hypotension, improving Multiple myeloma on chemotherapy Hypercalcemia and hyperparathyroidism status post pamidronate Ischemia Pancytopenia secondary to multiple myeloma and medication Plan: This is a pleasant 50 years old male who presents with pneumonia, PAUL and hypercalcemia and multiple myeloma Continue with antibiotics, currently on ceftriaxone and Zithromax. ID and pulmonary team on the case.We will follow-up with their recommendation regarding treatment Continue with IV hydration, nephrology team on the case Continue chemotherapy per hematology/oncology team will follow the patient closely Monitor pro calcitonin and proBNP Labs and medication were reviewed.. Continue same treatment. Continue with symptomatic treatment. Resume home medication. Monitor lytes and vitals. DVT and GI prophylaxis. Further recommendationsas per clinical course of the patient DVT prophylaxis: Subcutaneous heparin GI Prophylaxis: ppi
[2021-02-09 14:53] LABS: Albumin 3.09 g/dL (3.80-4.90); Gamma Globulin 0.18 g/dL (0.70-1.50)
[2021-02-09 14:55] LABS: Band Neutrophils % 4 %; Basophils # (M) 0.03 k/uL (0-0.2); Eosinophils # (M) 0.23 k/uL (0-0.7); Lymphocytes # (M) 0.44 k/uL (1.0-4.8); Neutrophils % (M) 37 %; Nucleated Red Blood Cells 1 /100 WBC (0-0); Total Cells Counted 100
--- NOTE | 2021-02-09 18:17 | PN ---
PROGRESS NOTE DATE OF SERVICE: 02/09/2021 REASON FOR FOLLOWUP: Abnormal x-ray and a question of pneumonia. INTERVAL HISTORY: The patient is afebrile. He is complaining of more cough, though, but not bringing up any sputum. Still complaining of shortness of breath . No nausea, no vomiting. No abdominal pain or diarrhea. PHYSICAL EXAMINATION: Blood pressure 112/55, pulse 107, temperature 98.6. He is 97% on room air. General description is a middle-aged male lying in bed in no distress. RESPIRATORY SYSTEM: Unlabored breathing. Decreased intensity of breath sounds. No wheeze. HEART: S1, S2. Regular rate and rhythm. ABDOMEN: Soft. No tenderness. LABS: Hemoglobin 6.9, white count 1.5, creatinine 1.07. DIAGNOSTIC IMPRESSION AND PLAN: Patient presented to hospital with shortness of breath, some infiltrate on the x-ray which is nonspecific. Patient has no fever or elevated white count. Clinically not behaving as pneumonia. Has been on empiric antibiotic without any improvement. Sputum culture has been negative as well. Need to look for non-infectious etiology for his shortness of breath. Pulmonary has seen the patient; not recommending any bronchoscopy. Continue supportive care. MMODL / IJN: [id number] /
[2021-02-09] MEDS: POMALYST PO SCH (18:56)
[2021-02-09] MEDS: AZITHROMYCIN 500 MG in SODIUM CHLORIDE 0.9% 250 ML IVPB SCH (19:16)
[2021-02-09] MEDS: HYDROcodone/APAP 10-325MG 1 EACH TAB PO PRN (19:21)
--- NOTE | 2021-02-09 20:27 | PN ---
PROGRESS NOTE Patient is seen for followup for acute kidney injury, which has significantly improved; creatinine down to 1.07. patient is maintained on bicarb drip. On examination today, blood pressure was 112/55, heart rate 107 per minute. He is afebrile. EXAMINATION OF THE HEART: S1 and S2. EXAMINATION OF LUNGS: Bilateral breath sounds are heard. Abdomen is soft, non-tender. Examination of lower extremities shows no significant edema. MANAGER HEALTH EXAM: Grossly intact. Labs show sodium of 136, potassium 3.3, chloride 106, BUN 18, creatinine 1.07, hemoglobin 6.9 g/dL. ASSESSMENT: 1. Acute kidney injury, multifactorial, including hypovolemia, hypotension, possible tumor lysis syndrome, as well as hypercalcemia, currently improved with IV hydration. 2. Metabolic acidosis, most likely associated with tumor lysis syndrome, maintained on IV bicarb. 3. Multiple myeloma with recurrence, currently maintained on chemotherapy with previous history of bone marrow transplant. 4. Hypercalcemia associated with multiple myeloma, status post pamidronate; calcium at 8.6 now. 5. Mild hypokalemia. PLAN: Replace potassium and continue with the bicarb drip for one more day. MMODL / IJN: [id number] /
[2021-02-09] MEDS: ZOLPIDEM 5 MG TAB PO SCH (20:40)
[2021-02-09] MEDS: ESCITALOPRAM 20 MG TAB PO SCH (20:41)
[2021-02-09] MEDS: MIRTAZAPINE 15 MG TAB PO SCH (20:41)
[2021-02-10] MEDS: HYDROcodone/APAP 10-325MG 1 EACH TAB PO PRN ×3 (05:24→18:03)
[2021-02-10 07:07] LABS: African American GFR (CKD) 83 (>60 ml/min/1.73 sqM); Anion Gap 12 mmol/L; Anisocytosis Slight; Blood Urea Nitrogen 14 mg/dL (9-20); Calcium 8.4 mg/dL (8.4-10.2); Carbon Dioxide 19 mmol/L (22-30); Chloride 103 mmol/L (98-107); Glucose 153 mg/dL (74-99); MCH 37.9 pg (25.0-35.0); MCHC 34.5 g/dL (31.0-37.0); Macrocytosis Marked; Mean Platelet Volume 9.8; Non-African American GFR(CKD) 71 (>60 ml/min/1.73 sqM); Platelet Count 58 k/uL (150-450); Potassium 3.8 mmol/L (3.5-5.1); RDW 17.3 % (11.5-15.5); Sodium 134 mmol/L (137-145)
[2021-02-10 07:12] LABS: HCT 18.7 % (39.0-53.0); HGB 6.4 gm/dL (13.0-17.5)
[2021-02-10] MEDS: DEXTROSE 5% IN WATER 1,000 ML with SODIUM BICARB (1 MEQ/ML) 150 ML IV SCH (08:15)
[2021-02-10 08:22] LABS: Band Neutrophils % 3 %; Basophils # (M) 0.03 k/uL (0-0.2); Metamyelocytes # (M) 0.03 k/uL (0); Metamyelocytes % 1 %; Myelocytes # (M) 0.03 k/uL (0); Myelocytes % 1 %; Neutrophils % (M) 38 %; Nucleated Red Blood Cells 3 /100 WBC (0-0); Total Cells Counted 200
[2021-02-10 08:23] LABS: Eosinophils # (M) 0.45 k/uL (0-0.7); Lymphocytes # (M) 0.65 k/uL (1.0-4.8); Monocytes # (M) 0.35 k/uL (0-1.0); WBC 2.5 k/uL (3.8-10.6)
[2021-02-10] MEDS: ACYCLOVIR 200 MG CAP PO SCH ×2 (08:28→21:02)
[2021-02-10] MEDS: PANTOPRAZOLE 40 MG TABLET PO SCH (08:28)
[2021-02-10] MEDS: CHOLECALCIFEROL 25 MCG (1000 IU) TABLET PO SCH (08:29)
[2021-02-10] MEDS: HEPARIN SODIUM,PORCINE/PF 5,000 UNIT/0.5 ML SYRINGE SQ SCH ×2 (08:29→21:03)
[2021-02-10] MEDS: CYANOCOBALAMIN 500 MCG TAB PO SCH (08:29)
--- NOTE | 2021-02-10 11:39 | XR ---
EXAMINATION TYPE: XR chest 2V DATE OF EXAM: 02/10/2021 COMPARISON: 02/09/2021 HISTORY: Pneumonia TECHNIQUE: Frontal and lateral views of the chest are obtained. FINDINGS: Perihilar and right lower lobe infiltrate persists and appear to progress slightly in the interval. C ontinued follow-up advised. No evidence for pneumothorax. No pleural effusion. The cardiac silhouette size is within normal limits. The osseous structures are grossly intact. IMPRESSION: 1. Perihilar and right lower lobe infiltrate persists and appear to progress slightly in the interva l. Continued follow-up advised.
--- NOTE | 2021-02-10 13:54 | P.PN ---
Subjective This is a pleasant 50 years old male with multiple medical problems including multiple myeloma presents with acute kidney injury secondary to hypotension and hypercalcemia and currently is been followed closely by nephrology team while continued on normal saline at 75 mL/h. Also hematology/oncology team following the patient status post chemotherapy for hypercalcemia and status post pamidronate today. Pulmonary team and ID team for bilateral pneumonia, there is abnormal CT but clinically complaining only from exertional dyspnea. No fever or coughing. Patient currently current with ceftriaxone and Zithromax. Also patient is on home medication of acyclovir and Bactrim. Patient also continued on dexamethasone Other than that he is hemodynamically stable. No more fever. He is on room air. He has mild pancytopenia. Creatinine 1.5, calcium elevated at 10.8. Ejection fraction is 55-60%. CT of the chest showed patchy ground glass interstitial infiltrates., On 02/0402/08/2021 Patient still with exertional dyspnea. Very occasional dry coughing. No chest pain. No other specific complaints. He remains on room air and vitals are stable. No more fever. Labs are not concerning, he has stable pancytopenia, calcium is back to normal at 9. Creatinine improved significantly to 1.1. He has some mild evidence of acidemia with low carbon dioxide and patient was started on some sodium bicarbonate drip by nephrology team today. He remains on ceftriaxone and Zithromax. Dexamethasone which is a home medication. IV fluid. Several consultants on the case including pulmonary, ID, nephrology and oncology/hematology. 02/09/2021 Patient clinically the same with exertional dyspnea. His still mildly tachycardic and febrile and rest of vitals are stable. He still has pancytopenia with WBC 1.5, hemoglobin 6.9 and a platelet 59. H ematology team on the case. Creatinine 1.0. Chest x-ray showing worsening bilateral infiltrates, coronavirus detected is negative. We have reordered procalcitonin and proBNP. Patient is on antibiotics with ceftriaxone and Zithromax, acyclovir and Bactrim. ID team and pulmonary team on the case. 02/10/2021 Patient still with dyspnea. He had a fever of 101.8 today. And his chest x-ray looks worse. Currently he is on ceftriaxone and Zithromax. He has pancytopenia and his hemoglobin dropped to 6.4. He is getting 1 unit of blood transfusion. Creatinine normal. Anion gap is normal carbon dioxide slightly low. He remains on Zithromax and ceftriaxone and dexamethasone and sodium bicarb. We will discuss with infectious disease team about his antibiotic management. Objective - Vital Signs Vital signs: Vital Signs Temp 98.8 F 02/10/21 12:25 Pulse 116 H 02/10/21 12:25 Resp 21 02/10/21 12:25 BP 119/54 02/10/21 12:25 Pulse Ox 97 02/10/21 12:25 Intake & Output 02/09/21 02/10/21 02/10/21 18:59 06:59 18:59 Intake Total 1740 Balance 1740 Intake: Intake, IV Titration 1200 Amount Azithromycin 500 mg In 250 Sodium Chloride 0.9% 250 ml @ 250 mls/hr IVPB Q24H [facility] Rx#:[id number] Dextrose 5% in Water 1, 900 000 ml @ 75 mls/hr IV . [id number] [facility]MAN with Sodium Bicarb (1 Meq/ml) 150 ml Rx#:[id number] cefTRIAXone 1 gm In 50 Sodium Chloride 0.9% 50 ml @ 100 mls/hr IVPB Q24H [facility] Rx#:[id number] Oral 540 Other: Voiding Method Toilet Toilet Toilet # Voids 3 - Exam GENERAL: The patient is alert and oriented x3, not in any acute distress. Well developed, well nourished. HEENT: Pupils are round and equally reacting to light. EOMI. No scleral icterus. No conjunctival pallor. Normocephalic, atraumatic. No pharyngeal erythema. No thyromegaly. CARDIOVASCULAR: S1 and S2 present. No murmurs, rubs, or gallops. PULMONARY: Chest is clear to auscultation, no wheezing or crackles. ABDOMEN: Soft, nontender, nondistended, normoactive bowel sounds. No palpable organomegaly. MUSCULOSKELETAL: No joint swelling or deformity. EXTREMITIES: No cyanosis, clubbing, or pedal edema. NEUROLOGICAL: Gross neurological examination did not reveal any focal deficits. SKIN: No rashes. no petechiae. - Labs CBC & Chem 7: 02/10/21 06:29 02/10/21 06:29 Labs: Abnormal Lab Results - Last 24 Hours (Table) 02/04/21 02/09/21 02/09/21 Range/Units 20:30 09:05 09:05 WBC (3.8-10.6) k/uL RBC (4.30-5.90) m/uL Hgb (13.0-17.5) gm/dL Hct (39.0-53.0) % MCV (80.0-100.0) fL MCH (25.0-35.0) pg RDW (11.5-15.5) % Plt Count (150-450) k/uL Neutrophils # (Manual) 0.60 L (1.3-7.7) k/uL Lymphocytes # (Manual) 0.44 L (1.0-4.8) k/uL Metamyelocytes # (Man) (0) k/uL Myelocytes # (Manual) (0) k/uL Nucleated RBCs 1 H (0-0) /100 WBC Macrocytosis Sodium (137-145) mmol/L Carbon Dioxide (22-30) mmol/L Glucose (74-99) mg/dL Albumin (PEP) 3.09 L (3.80-4.90) g/dL Beta Globulins 0.53 L (0.60-1.30) g/dL Gamma Globulins 0.18 L (0.70-1.50) g/dL Procalcitonin 0.28 H (0.02-0.09) ng/mL Crossmatch 02/09/21 02/10/21 02/10/21 Range/Units 15:10 06:29 06:29 WBC 2.5 L (3.8-10.6) k/uL RBC 1.70 L (4.30-5.90) m/uL Hgb 6.4 L* (13.0-17.5) gm/dL Hct 18.7 L* (39.0-53.0) % MCV 110.0 H (80.0-100.0) fL MCH 37.9 H (25.0-35.0) pg RDW 17.3 H (11.5-15.5) % Plt Count 58 L (150-450) k/uL Neutrophils # (Manual) 1.00 L (1.3-7.7) k/uL Lymphocytes # (Manual) 0.65 L (1.0-4.8) k/uL Metamyelocytes # (Man) 0.03 H (0) k/uL Myelocytes # (Manual) 0.03 H (0) k/uL Nucleated RBCs 3 H (0-0) /100 WBC Macrocytosis Marked A Sodium 134 L (137-145) mmol/L Carbon Dioxide 19 L (22-30) mmol/L Glucose 153 H (74-99) mg/dL Albumin (PEP) (3.80-4.90) g/dL Beta Globulins (0.60-1.30) g/dL Gamma Globulins (0.70-1.50) g/dL Procalcitonin (0.02-0.09) ng/mL Crossmatch See Detail Microbiology - Last 24 Hours (Table) 02/04/21 20:09 Blood Culture - Preliminary Blood No Growth after 120 hours 02/04/21 17:33 Blood Culture - Preliminary Blood No Growth after 120 hours Assessment and Plan Assessment: Bilateral interstitial pneumonia. With bilateral groundglass and interstitial infiltrates. Acute kidney injury secondary to hypercalcemia and hypotension, improving Multiple myeloma on chemotherapy Hypercalcemia and hyperparathyroidism status post pamidronate Ischemia Pancytopenia secondary to multiple myeloma and medication Plan: This is a pleasant 50 years old male who presents with pneumonia, PAUL and hypercalcemia and multiple myeloma Continue with antibiotics. Infectious disease team, currently on ceftriaxone and Zithromax. ID and pulmonary team on the case.We will follow-up with their recommendation regarding treatment Continue with IV hydration, nephrology team on the case Continue chemotherapy per hematology/oncology team will follow the patient closely Labs and medication were reviewed.. Continue same treatment. Continue with symptomatic treatment. Resume home medication. Monitor lytes and vitals. DVT and GI prophylaxis. Further recommendationsas per clinical course of the patient DVT prophylaxis: Subcutaneous heparin GI Prophylaxis: ppi
[2021-02-10] MEDS ORDERED: VANCOMYCIN IV PER PHARMACY 1 EACH MISC MISCELLANE PRN (13:56)
--- NOTE | 2021-02-10 15:42 | P.PN ---
Subjective Progress Note Date: 02/10/21 Principal diagnosis: Dyspnea, MM In f/u pt reports he had fever early this AM, he reports stable breathing-SOB with activity, staff reports audible breath sounds- has non productive cough, he does not have energy or resp ability to ambulate, energy levels are very poor, he is awaiting blood transfusion. Objective - Vital Signs Vital signs: Vital Signs Temp 98.4 F 02/10/21 06:09 Pulse 118 H 02/10/21 05:15 Resp 19 02/10/21 08:00 BP 121/50 02/10/21 05:15 Pulse Ox 94 L 02/10/21 05:15 Intake & Output 02/09/21 02/10/21 02/10/21 18:59 06:59 18:59 Intake Total 1740 Balance 1740 Intake: Intake, IV Titration 1200 Amount Azithromycin 500 mg In 250 Sodium Chloride 0.9% 250 ml @ 250 mls/hr IVPB Q24H [facility] Rx#:[id number] Dextrose 5% in Water 1, 900 000 ml @ 75 mls/hr IV . [id number] [facility]MAN with Sodium Bicarb (1 Meq/ml) 150 ml Rx#:[id number] cefTRIAXone 1 gm In 50 Sodium Chloride 0.9% 50 ml @ 100 mls/hr IVPB Q24H [facility] Rx#:[id number] Oral 540 Other: Voiding Method Toilet Toilet Toilet # Voids 3 - Constitutional General appearance: Present: average body habitus, cooperative, no acute distress - EENT Eyes: Present: anicteric sclerae, EOMI ENT: Present: hearing grossly normal, normal oropharynx - Respiratory Respiratory: bilateral: rales (bases), other (shallow, increased resp) - Cardiovascular Rhythm: regular Heart sounds: normal: S1, S2 Abnormal Heart Sounds: Absent: systolic murmur, diastolic murmur, rub, S3 Gallop, S4 Gallop, click, other - Peripheral edema leg Peripheral Edema: bilateral: Trace - Gastrointestinal General gastrointestinal: Present: normal bowel sounds, soft - Integumentary Integumentary: Present: pale - Neurologic Neurologic: Present: CNII-XII intact - Musculoskeletal Musculoskeletal: Present: generalized weakness, strength equal bilaterally - Psychiatric Psychiatric: Present: A&O x's 3, appropriate affect, intact judgment & insight - Labs CBC & Chem 7: 02/10/21 06:29 02/10/21 06:29 Labs: Abnormal Lab Results - Last 24 Hours (Table) 02/04/21 02/09/21 02/09/21 Range/Units 20:30 09:05 09:05 WBC (3.8-10.6) k/uL RBC (4.30-5.90) m/uL Hgb (13.0-17.5) gm/dL Hct (39.0-53.0) % MCV (80.0-100.0) fL MCH (25.0-35.0) pg RDW (11.5-15.5) % Plt Count (150-450) k/uL Neutrophils # (Manual) 0.60 L (1.3-7.7) k/uL Lymphocytes # (Manual) 0.44 L (1.0-4.8) k/uL Metamyelocytes # (Man) (0) k/uL Myelocytes # (Manual) (0) k/uL Nucleated RBCs 1 H (0-0) /100 WBC Macrocytosis Sodium (137-145) mmol/L Carbon Dioxide (22-30) mmol/L Glucose (74-99) mg/dL Albumin (PEP) 3.09 L (3.80-4.90) g/dL Beta Globulins 0.53 L (0.60-1.30) g/dL Gamma Globulins 0.18 L (0.70-1.50) g/dL Procalcitonin 0.28 H (0.02-0.09) ng/mL Crossmatch 02/09/21 02/10/21 02/10/21 Range/Units 15:10 06:29 06:29 WBC 2.5 L (3.8-10.6) k/uL RBC 1.70 L (4.30-5.90) m/uL Hgb 6.4 L* (13.0-17.5) gm/dL Hct 18.7 L* (39.0-53.0) % MCV 110.0 H (80.0-100.0) fL MCH 37.9 H (25.0-35.0) pg RDW 17.3 H (11.5-15.5) % Plt Count 58 L (150-450) k/uL Neutrophils # (Manual) 1.00 L (1.3-7.7) k/uL Lymphocytes # (Manual) 0.65 L (1.0-4.8) k/uL Metamyelocytes # (Man) 0.03 H (0) k/uL Myelocytes # (Manual) 0.03 H (0) k/uL Nucleated RBCs 3 H (0-0) /100 WBC Macrocytosis Marked A Sodium 134 L (137-145) mmol/L Carbon Dioxide 19 L (22-30) mmol/L Glucose 153 H (74-99) mg/dL Albumin (PEP) (3.80-4.90) g/dL Beta Globulins (0.60-1.30) g/dL Gamma Globulins (0.70-1.50) g/dL Procalcitonin (0.02-0.09) ng/mL Crossmatch See Detail Microbiology - Last 24 Hours (Table) 02/04/21 20:09 Blood Culture - Preliminary Blood No Growth after 120 hours 02/04/21 17:33 Blood Culture - Preliminary Blood No Growth after 120 hours - Imaging and Cardiology Chest x-ray: report reviewed Assessment and Plan (1) Acute kidney injury Narrative/Plan: More likely due to dehydration rather then myeloma since renal function improving with hydration. Nephrology consulted and following. BUN, Cr 14/1.49 today. Current Visit: Yes Status: Acute Code(s): N17.9 - ACUTE KIDNEY FAILURE, UNSPECIFIED SNOMED Code(s): 26283740 (2) Dyspnea Narrative/Plan: CXR ordered this AM to evaluate as pt had 101.8F. Report Perihilar and RLL infiltrate appear to progress slightly since yesterdays exam. Pt does not want to use O2 at this time, O2 sats >92% recorded in chart. Spoke with ID and recommend bronch for possible atypical pneumonia. Have had communications with Pulmonary-pending their exam and recs. Current Visit: Yes Status: Acute Priority: High Code(s): R06.00 - DYSPNEA, UNSPECIFIED SNOMED Code(s): 264115574 (3) Atelectasis of both lungs Narrative/Plan: Concern for atypical infection in immuno-compromised pt, multiple lines of treatment and myeloma. Pt resp status is not improving. Awaiting eval and recs from Pulmonary Current Visit: No Status: Acute Code(s): J98.11 - ATELECTASIS SNOMED Code(s): 47726813 (4) Hypercalcemia Narrative/Plan: 2/2 myeloma/malignancy. Pt received 60mg of aredia, Ca++ WNL. Current Visit: Yes Status: Resolved Priority: High Code(s): E83.52 - HYPERCALCEMIA SNOMED Code(s): 93341127 (5) Fulford light chain myeloma Narrative/Plan: Just initiated on new regimen 2 weeks ago. Fulford light chains elevated but, regimen started about 3 weeks after last Fulford light chain level. Holding pomalyst due to resp symptoms and fever. Dr. Monzon did discuss case with [facility] in [place], pt is being considered for CAR-T treatment. Current Visit: No Status: Acute Priority: High Code(s): C90.00 - MULTIPLE MYELOMA NOT HAVING ACHIEVED REMISSION SNOMED Code(s): 389261090 Plan: Had a long conversation with . Pt and have agreed on no code status should pt experience cardioresp failure. As for pt current condition. His resp status is not improving despite abx/supportive treatments. His CXR is not improving. Currently team is contemplating bronch (if pt stable enough) to eval for atypical pneumonia. states she thinks pt is going to refuse the bronch. If pt does refuse procedure, she wanted to know what the outcome could be. ID and Pulm would cont to try and treat him but his condition could worsen and he could succumb to resp failure. We reviewed his long and complicated history of treatment for myeloma. All of her questions were answered to her satisfaction. Will cont to f/u with pt and communicate with the Attending and Consulting Physicians. Attests: I have seen and examined pt, performed H&P, developed impression and plan of care. Discussed with dictator. Agree with documentation, documented as a scribe. Time with Patient: Greater than 30 (>45 min counseling and coordinating care)
[2021-02-10] MEDS: VANCOMYCIN 1,500 MG in SODIUM CHLORIDE 0.9% 250 ML IVPB SCH (15:46)
[2021-02-10 17:46] LABS: Appearance,Urine Clear (Clear); Bilirubin,Urine Negative (Negative); Blood,Urine Negative (Negative); Color,Urine Yellow; Glucose,Urine (UA) Negative (Negative); Ketones,Urine Negative (Negative); Leukocyte Esterase,Urine Negative (Negative); Nitrite,Urine Negative (Negative); Protein,Urine 1+ (Negative); RBC,Urine 5 /hpf (0-5); Specific Gravity,Urine 1.019 (1.001-1.035); Squamous Epithelial Cell,Urine <1 /hpf (0-4); Urobilinogen,Urine <2.0 mg/dL (<2.0); WBC,Urine <1 /hpf (0-5)
[2021-02-10 17:51] LABS: Immunoglobulin M 3.8 mg/dL (40.0-280.0)
[2021-02-10] MEDS ORDERED: FUROSEMIDE 10 MG/ML 4 ML VIAL IV STA (18:00)
[2021-02-10] MEDS: CEFEPIME 2 GM in SODIUM CHLORIDE 0.9% 100 ML IVPB SCH (18:04)
[2021-02-10 18:17] LABS: Immunoglobulin A 4.7 mg/dL (60.0-350.0)
--- NOTE | 2021-02-10 18:22 | PN ---
PROGRESS NOTE Patient is seen for followup for acute kidney injury. His hemoglobin is noted to be 6.4 today. Serum creatinine has been staying 1.0-1.1 mg/dL. This morning patient is actually in the bathroom. He denies any significant complaints. He is not examined. Vital signs are reviewed. PHYSICAL EXAMINATION: Blood pressure was 119/54, heart rate 116 per minute, he is afebrile. 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 Rest of the exam is not performed. LABS: Reviewed. Hemoglobin 6.4, sodium 134, potassium 3.8, chloride 103, CO2 is 19, creatinine 1.19. ASSESSMENT: 1. Acute kidney injury secondary to tumor lysis syndrome, hypercalcemia and hypotension, currently improved. Patient is maintained on IV fluids. 2. Metabolic acidosis secondary to tumor lysis syndrome, maintained on IV bicarb. 3. Multiple myeloma with recurrence with previous history of bone marrow transplant, maintained on chemotherapy. 4. Bilateral lung infiltrates, possibly pneumonia. PLAN: Discontinue IV fluids and maintain patient on oral sodium bicarb and repeat labs in a.m. MMODL / IJN: [id number] /
--- NOTE | 2021-02-10 18:47 | P.PN ---
Subjective Progress Note Date: 02/10/21 Principal diagnosis: dyspnea 50-year-old male patient of Dr. Pate with past medical history of hypertension, multiple myeloma, depression, never smoker. Patient follows with Dr. Monzon at the [facility] for his history of multiple myeloma. Patient came into the emergency department on 02/04/2021 for evaluation of shortness of breath and weakness of one-week duration. Patient recently started new treatment for multiple myeloma. He is currently awaiting initiation for CAR-T therapy for recent progression of his multiple myeloma. He follows with the medical oncologist from [facility] in [place]. Patient apparently had a CT angiogram of the chest ordered by Dr. Monzon one week ago on 01/28/2021. It showed resolution of previous infiltrates from April 2020. And there was a new groundglass and nodular infiltrate in the posterior right upper lobe and minimal groundglass changes in the anterior right and left upper lobes. There was a possibility of recurrent pneumonia and possibility of comorbid pneumonia. No large central pulmonary embolism was identified, however this was a suboptimal contrast bolus. There was no definite lobar or segmental branch emboli. There was scattered osseous lesions redemonstrated compatible with patient's history of multiple myeloma. Patient was checked for COVID-19 via PCR and was negative, Legionella urine antigen was negative, mycoplasma IgG and IgM were both low at 0.15 and 0.03. Influenza A and B were negative. Chest x-ray in the emergency department showed interstitial pneumonitis all mild venous c ongestion, and they were lucent lesions involving the osseous structures. Admission blood work showed a white blood cell count of 4.7, hemoglobin of 8.8, INR of 1.0, sodium was 133, potassium is 4.7, chloride was 104, CO2 is 20, BUN is 56, creatinine is 2.11. Lactic acid was 1.1, calcium was 11.4, AST was low at 10, ALT was 11, alkaline phosphatase was 64, troponin was less than 0.012, proBNP was 764. His PTH level was 9.2, urinalysis was negative for any sign of infection. CT chest without contrast was obtained showing patchy groundglass pulmonary interstitial infiltrates, and bony changes consistent with multiple myeloma. Echocardiogram has been completed showing moderate concentric LVH LV function preserved, with EF of 55-60%, mild aortic stenosis, mild to moderate mitral regurgitation, mild tricuspid regurgitation, no evidence of pulmonary hypertension. Medical oncology saw the patient and consultation, and suspected tumor lysis syndrome. Patient is currently being discussed possibility of a CAR-T therapy, however there is 6 months waiting list, and in the meantime he was on salvage therapy with Emplicity. Blood cultures are negative, sputum showed few polymorphonuclear leukocytes, many gram-positive cocci, moderate gram-negative bacilli. Final culture is pending. Urine culture was negative. ID service is following, patient is on empiric antibiotics in the form of azithromycin and Rocephin, she is also on Bactrim DS, and Acyclovir. His labs from today show white blood cell count of 2.1, hemoglobin of 7.6, calcium level is down to 10.8, proBNP level is 1410, pro-calcitonin level was 0.31. Patient remains on IV hydration with point of the same at 75 ML per hour. Patient's renal function is improving on yesterday's labs his creatinine was down to 1.53 from 2.11 on admission. Patient is afebrile, he is currently on room air with pulse ox of 96%. While in the hospital he was noted to have a 40 mm gradient in the systolic pressure between the right and left extremity, and vascular surgery was consulted however carotid duplex did not show evidence of a subclavian steal syndrome. Patient denies any cough, no chest pain, no phlegm production, no wheezing. Still having exertional dyspnea, vital signs are stable, recovers with rest. On 02/10/2021 we were asked to see the patient again in regards to his dyspnea, and patient had a fever of 101.8F early this morning, patient is currently on a combination of cefepime, vancomycin, he was on azithromycin earlier in his hospital stay, patient also on Bactrim DS and Acyclovir. Chest x-ray today isela ws perihilar and right lower lobe infiltrate persistence and possibly slight progression. Patient remains on room air pulse ox is 92-97%, he has it dyspneic at rest, and with any exertion, his cough a dry, nonproductive. Denies any phlegm production or hemoptysis. He has a mild generalized edema. Labs today show a white blood cell count of 2.5, hemoglobin of 6.4, platelet count is 58, sodium is 134, potassium is 3.8, BUN is 14, creatinine is 1.19, his pro- calcitonin level from 02/09/2021 was 0.28. His urinalysis showed 1+ protein, no evidence of infection, she tested negative for COVID 19. Patient is being transfused with 3 units of packed red blood cells today. We were asked to see t he patient in evaluation for possible bronchoscopy with BAL. Objective - Vital Signs Vital signs: Vital Signs Temp 98.9 F 02/10/21 17:02 Pulse 115 H 02/10/21 17:02 Resp 16 02/10/21 17:02 BP 114/55 02/10/21 17:02 Pulse Ox 92 L 02/10/21 17:02 Intake & Output 02/09/21 02/10/21 02/10/21 18:59 06:59 18:59 Intake Total 1740 0 Balance 1740 0 Intake: Intake, IV Titration 1200 Amount Azithromycin 500 mg In 250 Sodium Chloride 0.9% 250 ml @ 250 mls/hr IVPB Q24H [facility] Rx#:[id number] Dextrose 5% in Water 1, 900 000 ml @ 75 mls/hr IV . [id number] [facility] with Sodium Bicarb (1 Meq/ml) 150 ml Rx#:[id number] cefTRIAXone 1 gm In 50 Sodium Chloride 0.9% 50 ml @ 100 mls/hr IVPB Q24H [facility] Rx#:[id number] Oral 540 Blood Product 0 Rc Irr As1 Unit 0 [id number] Other: Voiding Method Toilet Toilet Toilet # Voids 3 - Exam GENERAL EXAM: Alert, very pleasant, 50-year-old white male, on room air, with pulse ox of 96% comfortable in no apparent distress. HEAD: Normocephalic/atraumatic. EYES: Normal reaction of pupils, equal size. Conjunctiva pink, sclera white. NOSE: Clear with pink turbinates. THROAT: No erythema or exudates. NECK: No masses, no JVD, no thyroid enlargement, no adenopathy. CHEST: No chest wall deformity. Symmetrical expansion. LUNGS: Equal air entry with mild bibasilar crackles, but no wheeze, rhonchi or dullness. CVS: Regular rate and rhythm, normal S1 and S2, no gallops, no murmurs, no rubs ABDOMEN: Soft, nontender. No hepatosplenomegaly, normal bowel sounds, no guarding or rigidity. EXTREMITIES: No clubbing,mild generalized edema, no cyanosis, 2+ pulses and upper and lower extremities. MUSCULOSKELETAL: Muscle strength and tone normal. SPINE: No scoliosis or deformity SKIN: No rashes CENTRAL NERVOUS SYSTEM: Alert and oriented -3. No focal deficits, tone is normal in all 4 extremities. PSYCHIATRIC: Alert and oriented -3. Appropriate affect. Intact judgment and insight. - Labs CBC & Chem 7: 02/10/21 06:29 02/10/21 06:29 Labs: Abnormal Lab Results - Last 24 Hours (Table) 02/09/21 02/10/21 02/10/21 Range/Units 15:10 06:29 06:29 WBC 2.5 L (3.8-10.6) k/uL RBC 1.70 L (4.30-5.90) m/uL Hgb 6.4 L* (13.0-17.5) gm/dL Hct 18.7 L* (39.0-53.0) % MCV 110.0 H (80.0-100.0) fL MCH 37.9 H (25.0-35.0) pg RDW 17.3 H (11.5-15.5) % Plt Count 58 L (150-450) k/uL Neutrophils # (Manual) 1.00 L (1.3-7.7) k/uL Lymphocytes # (Manual) 0.65 L (1.0-4.8) k/uL Metamyelocytes # (Man) 0.03 H (0) k/uL Myelocytes # (Manual) 0.03 H (0) k/uL Nucleated RBCs 3 H (0-0) /100 WBC Macrocytosis Marked A Sodium 134 L (137-145) mmol/L Carbon Dioxide 19 L (22-30) mmol/L Glucose 153 H (74-99) mg/dL Urine Protein (Negative) IgG (700.0-1600.0) mg/dL IgA (60.0-350.0) mg/dL IgM (40.0-280.0) mg/dL Crossmatch See Detail 02/10/21 02/10/21 Range/Units 10:23 15:00 WBC (3.8-10.6) k/uL RBC (4.30-5.90) m/uL Hgb (13.0-17.5) gm/dL Hct (39.0-53.0) % MCV (80.0-100.0) fL MCH (25.0-35.0) pg RDW (11.5-15.5) % Plt Count (150-450) k/uL Neutrophils # (Manual) (1.3-7.7) k/uL Lymphocytes # (Manual) (1.0-4.8) k/uL Metamyelocytes # (Man) (0) k/uL Myelocytes # (Manual) (0) k/uL Nucleated RBCs (0-0) /100 WBC Macrocytosis Sodium (137-145) mmol/L Carbon Dioxide (22-30) mmol/L Glucose (74-99) mg/dL Urine Protein 1+ H (Negative) IgG 151.0 L (700.0-1600.0) mg/dL IgA 4.7 L (60.0-350.0) mg/dL IgM 3.8 L (40.0-280.0) mg/dL Crossmatch Microbiology - Last 24 Hours (Table) 02/04/21 20:09 Blood Culture - Preliminary Blood No Growth after 120 hours 02/04/21 17:33 Blood Culture - Preliminary Blood No Growth after 120 hours Assessment and Plan Plan: Assessment: #1. Shortness of breath, possibly related to mild interstitial pneumonitis, and anemia, rule out possibility of infectious etiology. CT chest without contrast showed patchy, pulmonary interstitial infiltrates, nonspecific. Patient is currently on a combination of azithromycin and Rocephin, Acyclovir and Bactrim DS. Pro-calcitonin level was 0.31 Legionella urine antigen was negative, COVID- 19 PCR was negative mycoplasma IgG and IgM were negative. #2. History of multiple myeloma with recent progression, and patient is on Empliciti. Patient is being considered for initiation of CAR-T therapy #3. Right arm pain, asymmetric blood pressure, no evidence of subclavian steal syndrome, vascular surgery is following #4. Acute kidney injury #5. Possible tumor lysis syndrome #6. Hypercalcemia secondary to multiple myeloma, improving #7. Chronic anemia #8. Hypertension #9. Depression #10. Lifetime nonsmoker Plan: We were called to reevaluate the patient for possibility of bronchoscopy with BAL Patient is already covered on broad-spectrum antibiotics, so far cultures are negative, pro-calcitonin level remains low, he did have a fever spike, still on room air Patient has received 3 units of packed red blood cells today Some of his dyspnea may be related to the fact that he is anemic as well Appears to be generally fluid overloaded, we will offer one-time dose of IV Lasix We discussed bronchoscopy with BAL for tomorrow with the patient, and the patient wanted to discuss it with his If agreeable to proceed, will make patient nothing by mouth at midnight and we'll put the patient on the schedule for tomorrow I performed a history & physical examination of the patient and discussed their management with my nurse practitioner, Emmanuelle Baird. I reviewed the nurse pra ctitioner's note and agree with the documented findings and plan of care. Lung sounds are positive for diminished breath sounds throughout the lung lion. The findings and the impression was discussed with the patient. I attest to the documentation by the nurse practitioner. Time with Patient: Less than 30
[2021-02-10] MEDS: ZOLPIDEM 5 MG TAB PO SCH (21:03)
[2021-02-10] MEDS: SODIUM BICARBONATE TAB 650 MG TAB PO SCH (21:03)
[2021-02-10] MEDS: MIRTAZAPINE 15 MG TAB PO SCH (21:10)
[2021-02-10] MEDS: ESCITALOPRAM 20 MG TAB PO SCH (21:10)
--- NOTE | 2021-02-10 23:28 | PN ---
PROGRESS NOTE DATE OF SERVICE: 02/10/2021 REASON FOR FOLLOWUP: Pneumonia with a new fever. INTERVAL HISTORY: This patient did spike this morning a fever of 101.8 degrees Fahrenheit. The patient has been afebrile since then. The patient is still complaining of shortness of breath on minimal exertion. Denies having any chest pain. Did have a cough; no worsening, though, and no sputum production. No abdominal pain and no diarrhea. PHYSICAL EXAMINATION: Blood pressure is 118/63 with a pulse of 109, temperature of 98.5, T-max is 101. He is 95% on room air. General description is a middle-aged male up in the bed in no distress. RESPIRATORY SYSTEM: Unlabored breathing. Decreased intensity of breath sounds. No wheeze. HEART: S1, S2. Regular rate and rhythm. ABDOMEN: Soft. No tenderness. LABS: Hemoglobin is 6.4, white count 2.5, creatinine is 1.19. Urine has been negative. Dennis PCR negative. DIAGNOSTIC IMPRESSION AND PLAN: Patient admitted to hospital with shortness of breath, multifactorial, with question of possible pneumonia, and the patient is on antibiotic. However, the patient now has a new fever. Urine has been negative. No cellulitis at the IV site. X-ray did show slight worsening. Pulmonary to reevaluate for possible bronchoscopy. Antibiotic has been adjusted to vancomycin and cefepime while waiting for the culture to finalize. Continue to stabilize. Continue with supportive care. MMODL / IJN: [id number] /
[2021-02-11 00:06] LABS: Anisocytosis Slight; HCT 21.3 % (39.0-53.0); HGB 7.1 gm/dL (13.0-17.5); MCH 36.3 pg (25.0-35.0); MCHC 33.5 g/dL (31.0-37.0); MCV 108.4 fL (80.0-100.0); Macrocytosis Marked; Platelet Count 61 k/uL (150-450); RBC 1.97 m/uL (4.30-5.90); RDW 17.8 % (11.5-15.5); WBC 2.8 k/uL (3.8-10.6)
[2021-02-11] MEDS: HYDROcodone/APAP 10-325MG 1 EACH TAB PO PRN ×3 (00:50→21:15)
[2021-02-11] MEDS: CEFEPIME 2 GM in SODIUM CHLORIDE 0.9% 100 ML IVPB SCH ×3 (00:51→16:34)
[2021-02-11 01:10] LABS: Anisocytosis (M) Present; Band Neutrophils % 4 %; Basophils # (M) 0.03 k/uL (0-0.2); Eosinophils # (M) 0.42 k/uL (0-0.7); Lymphocytes # (M) 0.87 k/uL (1.0-4.8); Monocytes # (M) 0.31 k/uL (0-1.0); Neutrophils % (M) 38 %; Nucleated Red Blood Cells 0 /100 WBC (0-0); Polychromasia Present; Total Cells Counted 100
[2021-02-11] MEDS: VANCOMYCIN 1,500 MG in SODIUM CHLORIDE 0.9% 250 ML IVPB SCH ×2 (05:01→16:33)
[2021-02-11] MEDS: SODIUM BICARBONATE TAB 650 MG TAB PO SCH ×2 (07:59→21:16)
[2021-02-11] MEDS: CHOLECALCIFEROL 25 MCG (1000 IU) TABLET PO SCH (07:59)
[2021-02-11] MEDS: CYANOCOBALAMIN 500 MCG TAB PO SCH (08:00)
[2021-02-11] MEDS: HEPARIN SODIUM,PORCINE/PF 5,000 UNIT/0.5 ML SYRINGE SQ SCH ×2 (08:00→21:15)
[2021-02-11] MEDS: ACYCLOVIR 200 MG CAP PO SCH ×2 (08:00→22:50)
[2021-02-11] MEDS: PANTOPRAZOLE 40 MG TABLET PO SCH (08:00)
[2021-02-11] MEDS: SULFAMETHOX-TMP 800-160MG 1 EACH TAB PO SCH (08:00)
[2021-02-11 08:24] LABS: Anisocytosis Slight; MCH 38.1 pg (25.0-35.0); Macrocytosis Marked; Mean Platelet Volume 9.4; RBC 1.83 m/uL (4.30-5.90); RDW 18.6 % (11.5-15.5); WBC 2.4 k/uL (3.8-10.6)
[2021-02-11 08:25] LABS: HCT 20.5 % (39.0-53.0); Platelet Count 56 k/uL (150-450)
--- NOTE | 2021-02-11 11:07 | P.PN ---
Subjective Progress Note Date: 02/11/21 evaluation of 02/10/2000. Clinically the patient essentially the same. No worsening his condition. He remains on room air oxygen with a pulse is 73%. No chest pain. No fever. He remains on broad-spectrum antibiotics and antibiotic adjustments was done by infectious disease. There is a concern of persistent infection his lung. For that reason, the patient is going to have a bronchoscopy and the bronchioloalveolar lavage today. No bleeding. Platelet counts are stable for now. No significant cough or sputum production. His night was essentially uneventful. Objective - Vital Signs Vital signs: Vital Signs Temp 98.6 F 02/11/21 04:58 Pulse 101 H 02/11/21 04:58 Resp 18 02/11/21 04:58 BP 115/58 02/11/21 04:58 Pulse Ox 93 L 02/11/21 04:58 Intake & Output 02/10/21 02/11/21 02/11/21 18:59 06:59 18:59 Intake Total 1075 950 Balance 1075 950 Intake: Intake, IV Titration 1075 100 Amount Cefepime 2 gm In Sodium 100 Chloride 0.9% 100 ml @ 25 mls/hr IVPB Q8HR [facility] Rx# :[id number] Dextrose 5% in Water 1, 825 000 ml @ 75 mls/hr IV . [id number] [facility] with Sodium Bicarb (1 Meq/ml) 150 ml Rx#:[id number] Vancomycin 1,500 mg In 250 Sodium Chloride 0.9% 250 ml @ 125 mls/hr IVPB Q12H [facility] Rx#:[id number] Oral 540 Blood Product 0 310 Rc Irr As1 Unit 0 310 [id number] Other: Voiding Method Toilet Toilet # Voids 3 - Exam GENERAL EXAM: Alert, very pleasant, 50-year-old white male, on room air, with pulse ox of 96% comfortable in no apparent distress. HEAD: Normocephalic/atraumatic. EYES: Normal reaction of pupils, equal size. Conjunctiva pink, sclera white. NOSE: Clear with pink turbinates. THROAT: No erythema or exudates. NECK: No masses, no JVD, no thyroid enlargement, no adenopathy. CHEST: No chest wall deformity. Symmetrical expansion. LUNGS: Equal air entry with mild bibasilar crackles, but no wheeze, rhonchi or dullness. CVS: Regular rate and rhythm, normal S1 and S2, no gallops, no murmurs, no rubs ABDOMEN: Soft, nontender. No hepatosplenomegaly, normal bowel sounds, no guarding or rigidity. EXTREMITIES: No clubbing,mild generalized edema, no cyanosis, 2+ pulses and upper and lower extremities. MUSCULOSKELETAL: Muscle strength and tone normal. SPINE: No scoliosis or deformity SKIN: No rashes CENTRAL NERVOUS SYSTEM: Alert and oriented -3. No focal deficits, tone is normal in all 4 extremities. PSYCHIATRIC: Alert and oriented -3. Appropriate affect. Intact judgment and insight. - Labs CBC & Chem 7: 02/11/21 06:21 02/10/21 06:29 Labs: Abnormal Lab Results - Last 24 Hours (Table) 02/09/21 02/10/21 02/10/21 Range/Units 15:10 10:23 13:53 WBC (3.8-10.6) k/uL RBC (4.30-5.90) m/uL Hgb (13.0-17.5) gm/dL Hct (39.0-53.0) % MCV (80.0-100.0) fL MCH (25.0-35.0) pg RDW (11.5-15.5) % Plt Count (150-450) k/uL Neutrophils # (Manual) (1.3-7.7) k/uL Lymphocytes # (Manual) (1.0-4.8) k/uL Macrocytosis Procalcitonin 0.34 H (0.02-0.09) ng/mL Urine Protein (Negative) IgG 151.0 L (700.0-1600.0) mg/dL IgA 4.7 L (60.0-350.0) mg/dL IgM 3.8 L (40.0-280.0) mg/dL Crossmatch See Detail 02/10/21 02/10/21 02/11/21 Range/Units 15:00 23:50 06:21 WBC 2.8 L 2.4 L (3.8-10.6) k/uL RBC 1.97 L 1.83 L (4.30-5.90) m/uL Hgb 7.1 L 7.0 L (13.0-17.5) gm/dL Hct 21.3 L (39.0-53.0) % MCV 108.4 H 106.0 H (80.0-100.0) fL MCH 36.3 H 38.1 H (25.0-35.0) pg RDW 17.8 H 18.6 H (11.5-15.5) % Plt Count 61 L (150-450) k/uL Neutrophils # (Manual) 1.10 L (1.3-7.7) k/uL Lymphocytes # (Manual) 0.87 L (1.0-4.8) k/uL Macrocytosis Marked A Marked A Procalcitonin (0.02-0.09) ng/mL Urine Protein 1+ H (Negative) IgG (700.0-1600.0) mg/dL IgA (60.0-350.0) mg/dL IgM (40.0-280.0) mg/dL Crossmatch Microbiology - Last 24 Hours (Table) 02/04/21 20:09 Blood Culture - Final Blood No Growth after 144 hours 02/04/21 17:33 Blood Culture - Final Blood No Growth after 144 hours Assessment and Plan Plan: #1. Shortness of breath, possibly related to mild interstitial pneumonitis, and anemia, rule out possibility of infectious etiology. CT chest without contrast showed patchy, pulmonary interstitial infiltrates, nonspecific. Patient is currently on a combination of azithromycin and Rocephin, Acyclovir and Bactrim DS. Pro-calcitonin level was 0.31 Legionella urine antigen was negative, COVID- 19 PCR was negative mycoplasma IgG and IgM were negative. ABX were further adjusted and the patient was taken off the Rocephin and Zithromax and placed on cefepime and vancomycin. #2. History of multiple myeloma with recent progression, and patient is on Empliciti. Patient is being considered for initiation of CAR-T therapy #3. Right arm pain, asymmetric blood pressure, no evidence of subclavian steal syndrome, vascular surgery is following #4. Acute kidney injury #5. Possible tumor lysis syndrome #6. Hypercalcemia secondary to multiple myeloma, improving #7. Chronic anemia #8. Hypertension #9. Depression #10. Lifetime nonsmoker Plan: We were called to reevaluate the patient for possibility of bronchoscopy with MARCELAmonth we kept the patient nothing by mouth after midnight and the patient is going to undergo the bronchoscopy tomorrow. Protest on his nonelevated. Continue purchasing infection including viral or even possibly fungal/PCP. We will obtain a bronchioloalveolar lavage and was sent for the appropriate microbial cultures. Is currently on room air oxygen. Pulse ox 93%. Antibiotics have been modified by infectious disease.
[2021-02-11 11:41] LABS: Band Neutrophils % 3 %; Eosinophils # (M) 0.31 k/uL (0-0.7); Metamyelocytes # (M) 0.05 k/uL (0); Metamyelocytes % 2 %; Monocytes # (M) 0.34 k/uL (0-1.0); Myelocytes # (M) 0.02 k/uL (0); Myelocytes % 1 %; Neutrophils % (M) 41 %; Nucleated Red Blood Cells 2 /100 WBC (0-0); Total Cells Counted 200
[2021-02-11 11:42] LABS: Polychromasia Present
[2021-02-11] MEDS ORDERED: FUROSEMIDE 10 MG/ML 4 ML VIAL IV STA (12:28)
[2021-02-11] MEDS ORDERED: ACETAMINOPHEN TAB 325 MG TAB PO STA (12:34)
[2021-02-11] MEDS ORDERED: MIDAZOLAM 2 MG/2 ML VIAL ONE (13:24)
[2021-02-11] MEDS ORDERED: KETAMINE 10 MG/ML 20 ML VIAL ONE (13:24)
[2021-02-11] MEDS ORDERED: ESMOLOL 100 MG/10 ML VIAL ONE (13:24)
[2021-02-11] MEDS ORDERED: METOPROLOL TARTRATE 5 MG/5 ML VIAL IVP ONE (13:24)
[2021-02-11] MEDS ORDERED: PROPOFOL 10 MG/ML 20 ML VIAL IV ONE (13:24)
--- NOTE | 2021-02-11 13:26 | PN ---
PROGRESS NOTE Patient is seen for followup for acute kidney injury. Patient's renal function has improved, however, he is noted to have worsening shortness of breath. IV fluids were discontinued yesterday. Patient is scheduled for bronchoscopy. PHYSICAL EXAMINATION: On examination today, blood pressure is 115/58, heart rate 101 per minute, he is afebrile. Examination of the heart S1, S2. Examination of the lungs, bilateral breath sounds are heard. Decreased breath sounds at the bases with minimal basal crackles heard. Abdomen is soft, nontender. Examination lower extremities shows no significant edema. [employer] exam grossly intact. LAB: Show hemoglobin 7.0. BMP is not available from today. Yesterday on February 10, serum creatinine 1.19. ASSESSMENT: 1. Acute kidney injury, multifactorial, including secondary to hypercalcemia, hypotension as well as tumor lysis syndrome. Renal function has improved significantly with creatinine now down to 1.19 on 02/10/2021. IV fluids were discontinued yesterday. There may be an element of hypervolemia. I will give one dose of Lasix. 2. Bilateral lung infiltrates with suggestion of possible atypical pneumonia, being taken for bronchoscopy, maintained on antibiotics. Discontinue IV fluids and treat with diuretics as well. I will maintain him on a scheduled dose of Lasix. 3. Multiple myeloma with recurrence, maintained on chemotherapy. Previous history of bone marrow transplant. 4. Pancytopenia associated with multiple myeloma and chemotherapy. 5. Metabolic acidosis associated with tumor lysis syndrome, maintained on oral sodium bicarb. IV bicarb has been discontinued. Check labs in a.m. PLAN: Oliviaurese patient. Check labs in a.m. Will follow up on results of the bronchoscopy. MMODL / IJN: [id number] /
[2021-02-11] MEDS ORDERED: LIDOCAINE 2% INJ 20 MG/ML INTRATRACH ONE ×2 (13:40)
[2021-02-11] MEDS ORDERED: IV FLUID CONTINUATION 1,000 ML IV ONE (13:49)
--- NOTE | 2021-02-11 13:58 | P.PN ---
Subjective This is a pleasant 50 years old male with multiple medical problems including multiple myeloma presents with acute kidney injury secondary to hypotension and hypercalcemia and currently is been followed closely by nephrology team while continued on normal saline at 75 mL/h. Also hematology/oncology team following the patient status post chemotherapy for hypercalcemia and status post pamidronate today. Pulmonary team and ID team for bilateral pneumonia, there is abnormal CT but clinically complaining only from exertional dyspnea. No fever or coughing. Patient currently current with ceftriaxone and Zithromax. Also patient is on home medication of acyclovir and Bactrim. Patient also continued on dexamethasone Other than that he is hemodynamically stable. No more fever. He is on room air. He has mild pancytopenia. Creatinine 1.5, calcium elevated at 10.8. Ejection fraction is 55-60%. CT of the chest showed patchy ground glass interstitial infiltrates., On 02/0402/08/2021 Patient still with exertional dyspnea. Very occasional dry coughing. No chest pain. No other specific complaints. He remains on room air and vitals are stable. No more fever. Labs are not concerning, he has stable pancytopenia, calcium is back to normal at 9. Creatinine improved significantly to 1.1. He has some mild evidence of acidemia with low carbon dioxide and patient was started on some sodium bicarbonate drip by nephrology team today. He remains on ceftriaxone and Zithromax. Dexamethasone which is a home medication. IV fluid. Several consultants on the case including pulmonary, ID, nephrology and oncology/hematology. 02/09/2021 Patient clinically the same with exertional dyspnea. His still mildly tachycardic and febrile and rest of vitals are stable. He still has pancytopenia with WBC 1.5, hemoglobin 6.9 and a platelet 59. H ematology team on the case. Creatinine 1.0. Chest x-ray showing worsening bilateral infiltrates, coronavirus detected is negative. We have reordered procalcitonin and proBNP. Patient is on antibiotics with ceftriaxone and Zithromax, acyclovir and Bactrim. ID team and pulmonary team on the case. 02/10/2021 Patient still with dyspnea. He had a fever of 101.8 today. And his chest x-ray looks worse. Currently he is on ceftriaxone and Zithromax. He has pancytopenia and his hemoglobin dropped to 6.4. He is getting 1 unit of blood transfusion. Creatinine normal. Anion gap is normal carbon dioxide slightly low. He remains on Zithromax and ceftriaxone and dexamethasone and sodium bicarb. We will discuss with infectious disease team about his antibiotic management. 02/11/2021 Patient is more tachypneic today. He denies chest pain. No other specific complaints. His vitals little worse, he still has a fever of 101.7. He is saturating 93% on room air. He is tachycardic around 110. Blood pressure is 99/69. Remains pancytopenic with WBC is 2.2, hemoglobin 7 after 1 unit of blood transfusion and platelets 56. Creatinine remains stable. Calcium was low. His antibiotics were adjusted to cefepime and IV vancomycin. Remains on dexamethasone. IV fluids of sodium bicarb was stopped and switched to bicarb pedal and started on IV Lasix 40 mg twice daily. Also oncology on the case for chemotherapy. His procalcitonin is mildly worsened up to 0.34. Patient eroded by pulmonary team for bronchoscopy tomorrow Objective - Vital Signs Vital signs: Vital Signs Temp 101.7 F H 02/11/21 12:54 Pulse 115 H 02/11/21 12:54 Resp 18 02/11/21 12:54 BP 99/63 02/11/21 12:54 Pulse Ox 93 L 02/11/21 12:54 Intake & Output 02/10/21 02/11/21 02/11/21 18:59 06:59 18:59 Intake Total 1075 950 Balance 1075 950 Intake: Intake, IV Titration 1075 100 Amount Cefepime 2 gm In Sodium 100 Chloride 0.9% 100 ml @ 25 mls/hr IVPB Q8HR [facility] Rx# :[id number] Dextrose 5% in Water 1, 825 000 ml @ 75 mls/hr IV . [id number] [facility] with Sodium Bicarb (1 Meq/ml) 150 ml Rx#:[id number] Vancomycin 1,500 mg In 250 Sodium Chloride 0.9% 250 ml @ 125 mls/hr IVPB Q12H [facility] Rx#:[id number] Oral 540 Blood Product 0 310 Rc Irr As1 Unit 0 310 [id number] Other: Voiding Method Toilet Toilet # Voids 3 - Exam GENERAL: The patient is alert and oriented x3, not in any acute distress. Well developed, well nourished. HEENT: Pupils are round and equally reacting to light. EOMI. No scleral icterus. No conjunctival pallor. Normocephalic, atraumatic. No pharyngeal erythema. No thyromegaly. CARDIOVASCULAR: S1 and S2 present. No murmurs, rubs, or gallops. PULMONARY: Chest is clear to auscultation, no wheezing or crackles. ABDOMEN: Soft, nontender, nondistended, normoactive bowel sounds. No palpable organomegaly. MUSCULOSKELETAL: No joint swelling or deformity. EXTREMITIES: No cyanosis, clubbing, or pedal edema. NEUROLOGICAL: Gross neurological examination did not reveal any focal deficits. SKIN: No rashes. no petechiae. - Labs CBC & Chem 7: 02/11/21 06:21 02/10/21 06:29 Labs: Abnormal Lab Results - Last 24 Hours (Table) 02/09/21 02/10/21 02/10/21 Range/Units 15:10 10:23 13:53 WBC (3.8-10.6) k/uL RBC (4.30-5.90) m/uL Hgb (13.0-17.5) gm/dL Hct (39.0-53.0) % MCV (80.0-100.0) fL MCH (25.0-35.0) pg RDW (11.5-15.5) % Plt Count (150-450) k/uL Neutrophils # (Manual) (1.3-7.7) k/uL Lymphocytes # (Manual) (1.0-4.8) k/uL Metamyelocytes # (Man) (0) k/uL Myelocytes # (Manual) (0) k/uL Nucleated RBCs (0-0) /100 WBC Macrocytosis C-Reactive Protein (0.00-0.80) mg/dL Procalcitonin 0.34 H (0.02-0.09) ng/mL Urine Protein (Negative) IgG 151.0 L (700.0-1600.0) mg/dL IgA 4.7 L (60.0-350.0) mg/dL IgM 3.8 L (40.0-280.0) mg/dL Crossmatch See Detail 02/10/21 02/10/21 02/11/21 Range/Units 15:00 23:50 06:21 WBC 2.8 L (3.8-10.6) k/uL RBC 1.97 L (4.30-5.90) m/uL Hgb 7.1 L (13.0-17.5) gm/dL Hct 21.3 L (39.0-53.0) % MCV 108.4 H (80.0-100.0) fL MCH 36.3 H (25.0-35.0) pg RDW 17.8 H (11.5-15.5) % Plt Count 61 L (150-450) k/uL Neutrophils # (Manual) 1.10 L (1.3-7.7) k/uL Lymphocytes # (Manual) 0.87 L (1.0-4.8) k/uL Metamyelocytes # (Man) (0) k/uL Myelocytes # (Manual) (0) k/uL Nucleated RBCs (0-0) /100 WBC Macrocytosis Marked A C-Reactive Protein 15.00 H (0.00-0.80) mg/dL Procalcitonin (0.02-0.09) ng/mL Urine Protein 1+ H (Negative) IgG (700.0-1600.0) mg/dL IgA (60.0-350.0) mg/dL IgM (40.0-280.0) mg/dL Crossmatch 02/11/21 Range/Units 06:21 WBC 2.4 L (3.8-10.6) k/uL RBC 1.83 L (4.30-5.90) m/uL Hgb 7.0 L (13.0-17.5) gm/dL Hct 20.5 L (39.0-53.0) % MCV 106.0 H (80.0-100.0) fL MCH 38.1 H (25.0-35.0) pg RDW 18.6 H (11.5-15.5) % Plt Count 56 L (150-450) k/uL Neutrophils # (Manual) 1.00 L (1.3-7.7) k/uL Lymphocytes # (Manual) 0.70 L (1.0-4.8) k/uL Metamyelocytes # (Man) 0.05 H (0) k/uL Myelocytes # (Manual) 0.02 H (0) k/uL Nucleated RBCs 2 H (0-0) /100 WBC Macrocytosis Marked A C-Reactive Protein (0.00-0.80) mg/dL Procalcitonin (0.02-0.09) ng/mL Urine Protein (Negative) IgG (700.0-1600.0) mg/dL IgA (60.0-350.0) mg/dL IgM (40.0-280.0) mg/dL Crossmatch Microbiology - Last 24 Hours (Table) 02/10/21 10:23 Blood Culture - Preliminary Blood No Growth after 24 hours 02/04/21 20:09 Blood Culture - Final Blood No Growth after 144 hours 02/04/21 17:33 Blood Culture - Final Blood No Growth after 144 hours Assessment and Plan Assessment: Bilateral interstitial pneumonia. With bilateral groundglass and interstitial infiltrates. Acute kidney injury secondary to hypercalcemia and hypotension, improving Multiple myeloma on chemotherapy Hypercalcemia and hyperparathyroidism status post pamidronate Ischemia Pancytopenia secondary to multiple myeloma and medication Plan: This is a pleasant 50 years old male who presents with pneumonia, PAUL and hypercalcemia and multiple myeloma Continue with antibiotics. Infectious disease team, currently on cefepime and IV vancomycin. ID and pulmonary team on the case.We will follow-up with their recommendation regarding treatment Bronchoscopy in the a.m. Discontinue hydration, continue with IV Lasix. nephrology team on the case Continue chemotherapy per hematology/oncology team will follow the patient closely Labs and medication were reviewed.. Continue same treatment. Continue with symptomatic treatment. Resume home medication. Monitor lytes and vitals. DVT and GI prophylaxis. Further recommendationsas per clinical course of the patient DVT prophylaxis: Subcutaneous heparin GI Prophylaxis: ppi Prognosis is guarded
[2021-02-11] MEDS ORDERED: DEXTROSE 5% IN WATER 100 ML with AMIODARONE 150 MG IV ONE (14:20)
--- NOTE | 2021-02-11 14:25 | P.PCN ---
Date of Procedure: 02/11/21 Preoperative Diagnosis: Bilateral groundglass pulmonary infiltrates, rule out pneumonia Immunosuppression Multiple myeloma Fevers Postoperative Diagnosis: Bilateral groundglass pulmonary infiltrates, rule out pneumonia Immunosuppression Multiple myeloma Fevers Procedure(s) Performed: Flexible bronchoscopy, bronchioalveolar lavage of the left upper lobe/lingula Anesthesia: JOSE MANUEL Surgeon: Jorden Nuno Estimated Blood Loss (ml): 0 Pathology: none sent Condition: stable Disposition: other (Telemetry, 3 S.) Operative Findings: This is a bronchoscopy that was done in the endoscopy suite. Patient has history of multiple myeloma the patient is chronically immunosuppressed. The patient is post bone marrow transplantation. The patient was having fever along with vague nonspecific lateral pulmonary infiltrates. A bronchoscopy and the bronchioloalveolar lavage was requested by infectious disease This procedure was done and the. Anesthetic was being administered by COMM[facility] ASSISTANT bedside. The patient was given a combination of ketamine and propofol. Note that starting with, his blood pressure was soft with a systolic blood pressure in the mid 90s and his heart rate initially was sinus and the rate of 100-110. After achieving adequate sedation, the flexible bronchoscope was introduced through the right nostril upper airway. A quick examination of the posterior oropharynx, larynx, epiglottis and vocal cords was done and all of this upper airway structures were within normal limits. Vocal cord function mobility was within normal. There was no evidence of any oropharyngeal candidiasis. Normal abduction and adduction of the vocal cord. A total of Dilaudid he was applied to the vocal cords and following that the bronchoscope was advanced into the upper airway. Examination tracheal bronchial tree was done. Information the tracheal was completed. The bronchoscope was moved into the right where the right mainstem bronchus, right upper lobe bronchus, bronchus intermedius, right middle lobe and right lower lobe bronchus was visualized. The various 10 segmen ts of the right lung were also visualized. Following that the bronchoscope was moved to the left and examination left-sided closed left mainstem bronchus, left upper lobe bronchus, lingular segment and left lower lobe bronchus. The various 8 segments of the left lung were also within normal limits. The bronchoscope was wedged into this appears segment of the lingula. A total of 100 mL of fluid was infused and around 25 mL of aspirate was obtained and the aspirin was turbid and cloudy. Therapeutic it was suctioning was done. Bronchoscope was removed. No other bronchial irregularities abnormalities. No tumors or lesions been no foreign bodies. After removal of the bronchoscope, the patient was noted to be quite tachycardic. I noted that the patient was in nature fibrillation with rapid ventricular response and his heart rate was ranging between 140-150, irregular. He was given IV asthma lower and following that he was given another dose of IV Lopressor. He continued to have issues with A. fib with RVR. At that point, the patient was transferred recovery. Twelve-lead EKG was ordered. He may end up going to telemetry unit for further treatment of his underlying atrial fi brillation. His blood pressure is stable for now. No significant hypotension. Oxidation is also stable with a pulse ox of 97% on simple face at 10 L per minute. He did wake up from sedation and is alert. Denies having any chest pain. Denies having shortness of breath. He had encounter some limited cough following the procedure which has subsided. For now, the patient is in recovery. We are awaiting for final decision on his discharge location and this will largely depend on his cardiac status. He is not known to have any previous bouts of atrial fibrillation.
[2021-02-11] MEDS ORDERED: AMIODARONE 360 MG in DEXTROSE 5% IN WATER 200 ML IV ONE ×2 (14:30)
--- NOTE | 2021-02-11 15:06 | P.CRDCN ---
History of Present Illness History of present illness: HISTORY OF PRESENTING ILLNESS This is a pleasant 50-year-old male past medical history significant for multiple myeloma diagnosed in May 2018, received chemotherapy and bone marrow transplant has been followed with Dr. Monzon as well as, Mad[facility] in [place], hypertension. He has seen Dr. Harvey in the office in November 2020 for hypertension. We have been asked to see in consultation for new onset atrial fibrillation with rapid ventricular response. Patient presents to the emergency department on 02/04/2021 due to increased weakness and shortness of breath for one week. Hematology/Oncology is following the patient. He was found to have acute kidney injury secondary to hypotension and hypercalcemia. Nephrology has been following the patient. Infectious disease and Pulmonary following the patient. Patient denies history of diabetes, stroke, [place], coronary disease. He denies history of smoking or alcohol use. Denies illicit drug use. He denies history of bleeding, GI ulcers, or GI bleeding. Today, patient underwent bronchoscopy and bronchioalveolar lavage of the left upper lobe by Pulmonary, after the procedure patient went into atrial fibrillation with rapid ventricular response HR 140-150. Patient was given IV Lopressor x2. He continued to be in atrial fibrillation with RVR. Patient spontaneously converted to sinus mechanism DIAGNOSTICS EKG on arrival to assess patient sinus rhythm HR 100, t wave inversion in lead III Echocardiogram on 02/05/21 revealed EF of 5560 percent, LA is mildly dilated, mild aortic stenosis with peak/mean gradient of 26 mmHg/12 mmHg, mild to moderate mitral regurgitation, mild tricuspid regurgitation. CT chest revealed patchy ground glass pulmonary interstitial infiltrates, bony changes consistent with multiple myeloma. Laboratory reviewed, WBC 2.4, hemoglobin 7.0, platelets 56. TSH within normal limits. Current home cardiac medications include lisinopril 20 mg daily, amlodipine 10 mg daily REVIEW OF SYSTEMS At the time of my exam: CONSTITUTIONAL: +fever +chills. +generalized weakness. CARDIOVASCULAR: +shortness of breath, Denies chest pain, orthopnea, PND or palpitations. RESPIRATORY: Denies cough. GASTROINTESTINAL: Denies abdominal pain, diarrhea, constipation, nausea or vomiting. MUSCULOSKELETAL: Denies myalgias. NEUROLOGIC: Denies numbness, tingling, headache or weakness. ENDOCRINE: Denies fatigue, weight change, polydipsia or polyurina. GENITOURINARY: Denies burning, hematuria or urgency with micturation. HEMATOLOGIC: Denies history of anemia or bleeding. PHYSICAL EXAMINATION Vitals 87/52, heart rate 96, febrile 101.7, RR 30s. CONSTITUTIONAL: No apparent distress. HEENT: Head is normocephalic. Pupils are equal, round. Sclerae anicteric. Mucous membranes of the mouth are moist. No JVD. No carotid bruit. CHEST EXAMINATION: Lungs are bibasilar crackles to auscultation. HEART EXAMINATION: Regular rate and rhythm. S1, S2 heard Systolic murmur at apex. No gallops or rub. ABDOMEN: Soft, nontender. Positive bowel sounds. EXTREMITIES: 2+ peripheral pulses, no lower extremity edema and no calf te nderness. SKIN:warm, dry NEUROLOGIC EXAMINATION: Patient is awake, alert and oriented x3. ASSESSMENT New onset paroxysmal atrial fibrillation with rapid ventricular response- [id number] score 1, spontaneously converted sinus. Shortness of breath History of mulitple myeloma Acute Kidney Injury Possible tumor lysis syndrome Chronic anemia , Hgb 7.0 Hypertension PLAN -Agree with amiodarone IV, unable to give beta roseline or cardizem due to hypotension -Will hold on anticoagulation at this time due to anemia and will discuss with hematology/oncology. -Further recommendations based on clinical course. Nurse Practitioner note has been reviewed, I agree with a documented findings and plan of care. Patient was seen and examined. 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 No experience. No recent travel. No significant tobacco or alcohol use or recreational drug use. 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 No experience. No recent travel. No significant tobacco or alcohol use or recreational drug use. 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 Past Drug Use History: None Reported - Past Family History Father Family Medical History: Hypertension Mother Family Medical History: No Reported History Medications and Allergies Home Medications Medication Instructions Recorded Confirmed Type Sulfamethox-Tmp 800-160Mg [Bactrim 1 tab PO MOWEFR@0900 07/18/18 02/04/21 History DS 800-160 mg] Acyclovir [Zovirax] 400 mg PO BID 02/23/20 02/04/21 History Escitalopram [Lexapro] 20 mg PO HS 02/23/20 02/04/21 History HYDROmorphone [Dilaudid] 2 mg PO BID PRN 02/23/20 02/04/21 History Zolpidem [Ambien] 5 - 10 mg PO HS 02/23/20 02/04/21 History Omeprazole 20 mg PO DAILY 05/12/20 02/04/21 History Butalb/Acetaminophen/Caffeine 1 - 2 cap PO Q4HR PRN 02/04/21 02/04/21 History [Fioricet 50-300-40 mg Capsule] Cholecalciferol [Vitamin D3 (25 50 mcg PO DAILY 02/04/21 02/04/21 History Mcg = 1000 Iu)] Cyanocobalamin (Vitamin B-12) 1,000 mcg PO DAILY 02/04/21 02/04/21 History [Vitamin B-12] HYDROcodone/APAP 10-325MG [[place] 1 tab PO Q8H PRN 02/04/21 02/04/21 History 10-325] Mirtazapine [Remeron] 15 mg PO HS 02/04/21 02/04/21 History Pomalyst 4mg 4 mg PO DIRECTED 02/04/21 02/04/21 History amLODIPine [Norvasc] 10 mg PO DAILY 02/04/21 02/04/21 History dexAMETHasone 28 mg PO MO 02/04/21 02/04/21 History lisinopriL [Zestril] 20 mg PO DAILY 02/04/21 02/04/21 History Allergies Allergy/AdvReac Type Severity Reaction Status Date / Time morphine Allergy Itching Verified 02/04/21 13:04 Physical Exam Vitals: Vital Signs Temp Pulse Pulse Resp BP BP BP 02/11/21 14:28 96 30 H 87/52 02/11/21 14:15 108 H 30 H 86/53 02/11/21 14:01 148 H 30 H 96/54 02/11/21 12:54 101.7 F H 115 H 18 99/63 02/11/21 04:58 98.6 F 101 H 18 115/58 02/10/21 20:37 98.5 F 109 H 18 118/63 02/10/21 19:55 99 F 116 H 18 90/54 02/10/21 17:02 98.9 F 115 H 16 114/55 02/10/21 16:32 98.9 F 115 H 14 108/52 02/10/21 16:22 98.5 F 115 H 14 127/67 Pulse Ox 02/11/21 14:28 98 02/11/21 14:15 97 02/11/21 14:01 97 02/11/21 12:54 93 L 02/11/21 04:58 93 L 02/10/21 20:37 95 02/10/21 19:55 93 L 02/10/21 17:02 92 L 02/10/21 16:32 92 L 02/10/21 16:22 Intake and Output 02/10/21 02/11/21 02/11/21 22:59 06:59 14:59 Intake Total 1385 640 100 Balance 1385 640 100 Intake: IV 100 Intake, IV Titration 1075 100 Amount Cefepime 2 gm In Sodium 100 Chloride 0.9% 100 ml @ 25 mls/hr IVPB Q8HR [facility] Rx# :[id number] Dextrose 5% in Water 1, 825 000 ml @ 75 mls/hr IV . [id number] [facility] with Sodium Bicarb (1 Meq/ml) 150 ml Rx#:[id number] Vancomycin 1,500 mg In 250 Sodium Chloride 0.9% 250 ml @ 125 mls/hr IVPB Q12H [facility] Rx#:[id number] Oral 540 Blood Product 310 Rc Irr As1 Unit 310 [id number] Other: Voiding Method Toilet # Voids 3 Results 02/11/21 06:21 02/10/21 06:29 CBC 02/10/21 02/11/21 Range/Units 23:50 06:21 WBC 2.8 L 2.4 L (3.8-10.6) k/uL RBC 1.97 L 1.83 L (4.30-5.90) m/uL Hgb 7.1 L 7.0 L (13.0-17.5) gm/dL Hct 21.3 L 20.5 L (39.0-53.0) % Plt Count 61 L 56 L (150-450) k/uL Current Medications Generic Name Dose Route Start Last Admin Trade Name Freq PRN Reason Stop Dose Admin Acetaminophen 650 mg 02/11/21 12:34 Acetaminophen Tab 325 Mg Tab PO Q6HR PRN Fever and/ or Pain Acetaminophen/Butalbital/Caffeine 1 - 2 each 02/04/21 16:57 02/09/21 16:03 Butalb/Apap/Caff 50-325-40mg Tab PO 1 each Q4HR PRN Administration Migraine Headache Hydrocodone Bitart/Acetaminophen 1 each 02/04/21 21:42 02/11/21 00:50 Hydrocodone/Apap 10-325mg 1 Each Tab PO 1 each Q6H PRN Administration Pain Acyclovir 400 mg 02/04/21 21:00 02/11/21 08:00 Acyclovir 200 Mg Cap PO 400 mg BID [facility] Administration Cholecalciferol 50 mcg 02/05/21 09:00 02/11/21 07:59 Cholecalciferol 25 Mcg (1000 Iu) Tablet PO 50 mcg DAILY [facility] Administration Cyanocobalamin 1,000 mcg 02/05/21 09:00 02/11/21 08:00 Cyanocobalamin 500 Mcg Tab PO 1,000 mcg DAILY [facility] Administration Dexamethasone 28 mg 02/07/21 09:00 02/07/21 07:56 Dexamethasone 4 Mg Tab PO 28 mg MO [facility] Administration Escitalopram Oxalate 20 mg 02/04/21 21:00 02/10/21 21:10 Escitalopram 20 Mg Tab PO 20 mg HS [facility] Administration Furosemide 40 mg 02/11/21 21:00 Furosemide 10 Mg/Ml 4 Ml Vial IV Q12HR [facility] Heparin Sodium (Porcine) 5,000 unit 02/04/21 21:00 02/11/21 08:00 Heparin Sodium,Porcine/Pf 5,000 Unit/0.5 Ml Syringe SQ 5,000 unit Q12HR [facility] Administration Hydromorphone HCl 2 mg 02/04/21 16:57 Hydromorphone 2 Mg Tab PO BID PRN Pain Cefepime HCl 2 gm/ Sodium 100 mls @ 25 mls/hr 02/10/21 16:00 02/11/21 07:59 Chloride IVPB 25 mls/hr Q8HR [facility] Administration Vancomycin HCl 1,500 mg/ 250 mls @ 125 mls/hr 02/10/21 15:00 02/11/21 05:01 Sodium Chloride IVPB 125 mls/hr Q12H [facility] Administration Amiodarone HCl 360 mg/ 200 mls @ 33.333 mls/hr 02/11/21 14:30 Dextrose/Water IV 02/11/21 20:29 .Q6H ONE Protocol 1 MG/MIN Amiodarone HCl 450 mg/ 250 mls @ 16.667 mls/hr 02/11/21 20:30 Dextrose/Water IV 02/12/21 14:29 .Q15H [facility] Protocol 0.5 MG/MIN Mirtazapine 15 mg 02/04/21 21:00 02/10/21 21:10 Mirtazapine 15 Mg Tab PO 15 mg HS [facility] Administration Miscellaneous Information 0 each 02/12/21 14:00 Vancomycin Trough Due 1 Each Misc MISCELLANE 02/12/21 14:01 DIRECTED ONE Naloxone HCl 0.2 mg 02/04/21 12:16 Naloxone 0.4 Mg/Ml 1 Ml Vial IV Q2M PRN Opioid Reversal Pantoprazole Sodium 40 mg 02/05/21 07:30 02/11/21 08:00 Pantoprazole 40 Mg Tablet PO 40 mg [id number] [facility] Administration Sodium Bicarbonate 650 mg 02/10/21 21:00 02/11/21 07:59 Sodium Bicarbonate Tab 650 Mg Tab PO 650 mg BID [facility] Administration Trimethoprim/Sulfamethoxazole 1 each 02/07/21 09:00 02/11/21 08:00 Sulfamethox-Tmp 800-160mg 1 Each Tab PO 1 each MOWEFR@0900 [facility] Administration Zolpidem Tartrate 5 mg 02/04/21 21:00 02/10/21 21:03 Zolpidem 5 Mg Tab PO 5 mg HS [facility] Administration Intake and Output 02/10/21 02/11/21 02/11/21 22:59 06:59 14:59 Intake Total 1385 640 100 Balance 1385 640 100 Intake: IV 100 Intake, IV Titration 1075 100 Amount Cefepime 2 gm In Sodium 100 Chloride 0.9% 100 ml @ 25 mls/hr IVPB Q8HR [facility] Rx# :[id number] Dextrose 5% in Water 1, 825 000 ml @ 75 mls/hr IV . [id number] [facility] with Sodium Bicarb (1 Meq/ml) 150 ml Rx#:[id number] Vancomycin 1,500 mg In 250 Sodium Chloride 0.9% 250 ml @ 125 mls/hr IVPB Q12H [facility] Rx#:[id number] Oral 540 Blood Product 310 Rc Irr As1 Unit 310 [id number] Other: Voiding Method Toilet # Voids 3 02/11/21 06:21 02/10/21 06:29
[2021-02-11] MEDS ORDERED: SODIUM CHLORIDE 0.9% 1,000 ML IV ONE (15:11)
[2021-02-11 16:56] LABS: Anisocytosis Slight; MCH 36.5 pg (25.0-35.0); MCHC 33.5 g/dL (31.0-37.0); Platelet Count 52 k/uL (150-450); RBC 1.81 m/uL (4.30-5.90); RDW 17.9 % (11.5-15.5); WBC 2.5 k/uL (3.8-10.6)
[2021-02-11 17:04] LABS: Albumin 3.1 g/dL (3.5-5.0); Potassium 4.4 mmol/L (3.5-5.1); Total Bilirubin 1.5 mg/dL (0.2-1.3); Total Protein 5.2 g/dL (6.3-8.2)
[2021-02-11 17:07] LABS: INR 1.2 (<1.2); Prothrombin Time 12.6 sec (9.0-12.0)
--- NOTE | 2021-02-11 17:17 | PN ---
PROGRESS NOTE DATE OF SERVICE: 02/11/2021 REASON FOR FOLLOWUP: Pneumonia. INTERVAL HISTORY: The patient did spike a fever this afternoon of 101.7 degrees Fahrenheit. The patient is status post bronchoscopy. Did have a problem with atrial fibrillation with RVR. He has been transferred to the cardiac unit. Patient is complaining of shortness of breath with minimal exertion. Did have minimal cough. No abdominal pain or diarrhea. PHYSICAL EXAMINATION: Blood pressure 101/55 with a pulse of 102, temperature 97.9. He is 98% on 3 L nasal cannula. General description is a middle-aged male lying in bed in no distress. RESPIRATORY SYSTEM: Unlabored breathing. Coarse breath sounds bilaterally. No wheeze. HEART: S1, S2. Regular rate and rhythm. ABDOMEN: Soft. No tenderness. LABS: Hemoglobin is 7, white count 2.4. The patient did have negative Legionella. Coronavirus PCR has been negative multiple times. DIAGNOSTIC IMPRESSION AND PLAN: Patient with concerning for pneumonia, status post bronchoscopy. Cultures will be followed. Antibiotic was adjusted to cefepime and ; to continue. Cannot use quinolones, as the patient has been started on amiodarone. However, the patient was recently on Zithromax with noted improvement. Adjusting antibiotic further on the basis of the culture report. Continue supportive care. MMODL / IJN: [id number] /
[2021-02-11 17:25] LABS: Macrocytosis Marked
[2021-02-11 17:27] LABS: HGB 6.6 gm/dL (13.0-17.5)
[2021-02-11 17:28] LABS: HCT 19.7 % (39.0-53.0)
[2021-02-11 17:59] LABS: Band Neutrophils % 2 %; Metamyelocytes # (M) 0.08 k/uL (0); Metamyelocytes % 3 %; Monocytes # (M) 0.15 k/uL (0-1.0); Neutrophils % (M) 57 %; Nucleated Red Blood Cells 0 /100 WBC (0-0); Polychromasia Present; Total Cells Counted 100
[2021-02-11] MEDS ORDERED: FUROSEMIDE 10 MG/ML 4 ML VIAL IV SCH (21:00)
[2021-02-11] MEDS: ESCITALOPRAM 20 MG TAB PO SCH (21:15)
[2021-02-11] MEDS: MIRTAZAPINE 15 MG TAB PO SCH (21:15)
[2021-02-11] MEDS: ZOLPIDEM 5 MG TAB PO SCH (21:16)
[2021-02-11] MEDS: FUROSEMIDE 10 MG/ML 4 ML VIAL IV SCH ×2 (23:40→23:41)
[2021-02-12] MEDS: CEFEPIME 2 GM in SODIUM CHLORIDE 0.9% 100 ML IVPB SCH ×3 (00:59→16:29)
[2021-02-12] MEDS: VANCOMYCIN 1,500 MG in SODIUM CHLORIDE 0.9% 250 ML IVPB SCH ×2 (04:07→16:29)
[2021-02-12] MEDS: PANTOPRAZOLE 40 MG TABLET PO SCH (05:58)
[2021-02-12] MEDS: FUROSEMIDE 10 MG/ML 4 ML VIAL IV SCH ×2 (05:58→18:34)
--- NOTE | 2021-02-12 07:28 | XR ---
EXAMINATION TYPE: XR chest 1V portable DATE OF EXAM: 02/12/2021 COMPARISON: 02/10/2021 HISTORY: Pneumonia TECHNIQUE: Single frontal view of the chest is obtained. FINDINGS: Patchy perihilar and right basilar infiltrate persists without change. The cardiac silhouette size is within normal limits. The osseous structures are intact. IMPRESSION: 1. Patchy perihilar and right basilar infiltrate persists without change.
--- NOTE | 2021-02-12 07:49 | P.PN ---
Subjective Progress Note Date: 02/12/21 Principal diagnosis: Paroxysmal atrial fibrillation The patient is a 50-year-old gentleman with multiple myeloma diagnosed in 2019 receives chemotherapy subsequently transplant who was admitted to the hospital with increasing shortness of breath. He was found to be pancytopenic. The hemoglobin dropped below 7 and received one unit of packed RBC. He underwent yesterday a bronchoscopy and we consulted to see the patient because of a brief episode of atrial fibrillation subsequently the patient converted to normal sinus mechanism. The patient was seen this morning. He continues to have shortness of breath. He continues to be tachycardic. This is likely related to anemia and lung disease but in going to obtain d-dimer to rule out PE. He reports no symptoms of chest pain or chest discomfort. He has been maintaining normal sinus mechanism. The pressure continues to be marginal but above 90 mmHg systolic. He denies any dizziness or lightheadedness. He is not on any blood pressure medications at this point. He is on Lasix IV and that has been managed by the nephrology service and he might benefit from decreasing the dose of Lasix IV. An echocardiogram earlier this year revealed normal left ventricular systolic function. Objective - Vital Signs Vital signs: Vital Signs Temp 98.6 F 02/12/21 04:00 Pulse 114 H 02/12/21 04:00 Resp 28 H 02/12/21 04:00 BP 94/56 02/12/21 04:00 Pulse Ox 99 02/12/21 04:00 Intake & Output 02/11/21 02/12/21 02/12/21 18:59 06:59 18:59 Intake Total 1480 730 Output Total 300 Balance 1180 730 Weight 95.3 kg Intake: IV 1000 Oral 480 480 Blood Product 250 Rc Irr Cpda1 Unit 250 [id number] Output: Urine 300 Other: Voiding Method Toilet # Voids 1 - Constitutional General appearance: Present: no acute distress - Respiratory Respiratory: bilateral: diminished - Cardiovascular Rhythm: regular Heart sounds: normal: S1, S2 Abnormal Heart Sounds: Present: systolic murmur - Labs CBC & Chem 7: 02/11/21 16:20 02/11/21 16:20 Labs: Abnormal Lab Results - Last 24 Hours (Table) 02/09/21 02/11/21 02/11/21 Range/Units 15:10 06:21 06:21 WBC 2.4 L (3.8-10.6) k/uL RBC 1.83 L (4.30-5.90) m/uL Hgb 7.0 L (13.0-17.5) gm/dL Hct 20.5 L (39.0-53.0) % MCV 106.0 H (80.0-100.0) fL MCH 38.1 H (25.0-35.0) pg RDW 18.6 H (11.5-15.5) % Plt Count 56 L (150-450) k/uL Neutrophils # (Manual) 1.00 L (1.3-7.7) k/uL Lymphocytes # (Manual) 0.70 L (1.0-4.8) k/uL Metamyelocytes # (Man) 0.05 H (0) k/uL Myelocytes # (Manual) 0.02 H (0) k/uL Nucleated RBCs 2 H (0-0) /100 WBC Macrocytosis Marked A PT (9.0-12.0) sec INR (<1.2) Sodium (137-145) mmol/L Carbon Dioxide (22-30) mmol/L BUN (9-20) mg/dL Creatinine (0.66-1.25) mg/dL Glucose (74-99) mg/dL Calcium (8.4-10.2) mg/dL Total Bilirubin (0.2-1.3) mg/dL AST (17-59) U/L C-Reactive Protein 15.00 H (0.00-0.80) mg/dL Total Protein (6.3-8.2) g/dL Albumin (3.5-5.0) g/dL Crossmatch See Detail 02/11/21 02/11/21 02/11/21 Range/Units 16:20 16:20 16:20 WBC 2.5 L (3.8-10.6) k/uL RBC 1.81 L (4.30-5.90) m/uL Hgb 6.6 L* (13.0-17.5) gm/dL Hct 19.7 L* (39.0-53.0) % MCV 109.0 H (80.0-100.0) fL MCH 36.5 H (25.0-35.0) pg RDW 17.9 H (11.5-15.5) % Plt Count 52 L (150-450) k/uL Neutrophils # (Manual) (1.3-7.7) k/uL Lymphocytes # (Manual) 0.60 L (1.0-4.8) k/uL Metamyelocytes # (Man) 0.08 H (0) k/uL Myelocytes # (Manual) (0) k/uL Nucleated RBCs (0-0) /100 WBC Macrocytosis Marked A PT 12.6 H (9.0-12.0) sec INR 1.2 H (<1.2) Sodium 134 L (137-145) mmol/L Carbon Dioxide 21 L (22-30) mmol/L BUN 21 H (9-20) mg/dL Creatinine 1.29 H (0.66-1.25) mg/dL Glucose 118 H (74-99) mg/dL Calcium 8.0 L (8.4-10.2) mg/dL Total Bilirubin 1.5 H (0.2-1.3) mg/dL AST 13 L (17-59) U/L C-Reactive Protein (0.00-0.80) mg/dL Total Protein 5.2 L (6.3-8.2) g/dL Albumin 3.1 L (3.5-5.0) g/dL Crossmatch Microbiology - Last 24 Hours (Table) 02/11/21 13:45 Acid Fast Bacilli Culture - Preliminary Bronchial Washings - Random 02/11/21 13:45 Fungal Culture - Preliminary Bronchial Washings - Random 02/11/21 13:45 Bronchial Washings Culture - Preliminary Bronchial Washings - Random 02/10/21 10:23 Blood Culture - Preliminary Blood No Growth after 24 hours Assessment and Plan Assessment: Assessment #1 new onset atrial fibrillation and the patient converted to normal sinus mechanism #2 shortness of breath which is likely to be multifocal renal #3 pancytopenia #4 sinus tachycardia #5 multiple myeloma #6 acute renal failure Plan #1 I would advise decreasing the dose of Lasix IV in view of the margin a low blood pressure #2 obtain d-dimer to rule out PE #3 continue monitor the heart rate and blood pressure #4 blood transfusion if the hemoglobin drop below 7
[2021-02-12 08:08] LABS: Anisocytosis Slight; HCT 22.9 % (39.0-53.0); HGB 7.9 gm/dL (13.0-17.5); MCH 36.6 pg (25.0-35.0); MCHC 34.4 g/dL (31.0-37.0); MCV 106.5 fL (80.0-100.0); Macrocytosis Marked; Mean Platelet Volume 8.8; RBC 2.15 m/uL (4.30-5.90); RDW 17.1 % (11.5-15.5)
[2021-02-12 08:19] LABS: Platelet Count 57 k/uL (150-450)
[2021-02-12 08:27] LABS: Albumin 3.1 g/dL (3.5-5.0); Calcium 8.1 mg/dL (8.4-10.2); Potassium 3.8 mmol/L (3.5-5.1); Total Bilirubin 1.8 mg/dL (0.2-1.3); Total Protein 5.3 g/dL (6.3-8.2)
[2021-02-12] MEDS: HEPARIN SODIUM,PORCINE/PF 5,000 UNIT/0.5 ML SYRINGE SQ SCH ×2 (09:35→21:09)
--- NOTE | 2021-02-12 09:50 | P.PN ---
Subjective Progress Note Date: 02/12/21 . 50-year-old male patient with multiple myeloma was having episodes of fever. I performed a bronchoscopy and bronchial lavage results are pending for now. Meanwhile, post bronchoscopy, the patient went into atrial fibrillation with rapid ventricular response. He was in recovery and subsequently converted into sinus rhythm again. Cardiology consultation was requested. This morning, he still having some cough and shortness of breath. He is tachycardic and his cardiac rhythm is sinus. His EKG showing a normal sinus rhythm. His chest x- ray from today showing some limited bilateral pulmonary infiltrates. Pulse ox is around 90 2 l of oxygen by nasal cannula. patient remains on a combination of cefepime and vancomycin for now. he has multiple myeloma. he is obviously immunosuppressed. blood work from today shows a white cell count 3.2 with a hemoglobin of 7.9. platelet counts are are 57. in terms of the rest of the electrolytes and blood work, d-dimer is at 1.0, sodium is at 133, potassium 3.8, creatinine is at 1.3 consistent with chronic kidney disease. he is liters of oxygen by nasal cannula with a pulse ox of 99%. Objective - Vital Signs Vital signs: Vital Signs Temp 99.2 F 02/12/21 08:00 Pulse 114 H 02/12/21 08:00 Resp 26 H 02/12/21 08:00 BP 93/56 02/12/21 08:00 Pulse Ox 97 02/12/21 08:00 Intake & Output 02/11/21 02/12/21 02/12/21 18:59 06:59 18:59 Intake Total 1480 730 0 Output Total 300 Balance 1180 730 0 Weight 95.3 kg Intake: IV 1000 Oral 480 480 0 Blood Product 250 Rc Irr Cpda1 Unit 250 [id number] Output: Urine 300 Other: Voiding Method Toilet # Voids 1 - Exam GENERAL EXAM: Alert, very pleasant, 50-year-old white male, on 2 L of oxygen by nasal cannula. HEAD: Normocephalic/atraumatic. EYES: Normal reaction of pupils, equal size. Conjunctiva pink, sclera white. NOSE: Clear with pink turbinates. THROAT: No erythema or exudates. NECK: No masses, no JVD, no thyroid enlargement, no adenopathy. CHEST: No chest wall deformity. Symmetrical expansion. LUNGS: Equal air entry with mild bibasilar crackles, but no wheeze, rhonchi or dullness. The patient has scattered rhonchi heard throughout the lung lion bilaterally. CVS: Regular rate and rhythm, normal S1 and S2, no gallops, no murmurs, no rubs ABDOMEN: Soft, nontender. No hepatosplenomegaly, normal bowel sounds, no guarding or rigidity. EXTREMITIES: No clubbing,mild generalized edema, no cyanosis, 2+ pulses and upper and lower extremities. MUSCULOSKELETAL: Muscle strength and tone normal. SPINE: No scoliosis or deformity SKIN: No rashes CENTRAL NERVOUS SYSTEM: Alert and oriented -3. No focal deficits, tone is normal in all 4 extremities. PSYCHIATRIC: Alert and oriented -3. Appropriate affect. Intact judgment and insight. - Labs CBC & Chem 7: 02/12/21 07:01 02/12/21 07:01 Labs: Abnormal Lab Results - Last 24 Hours (Table) 02/09/21 02/11/21 02/11/21 Range/Units 15:10 06:21 06:21 WBC (3.8-10.6) k/uL RBC (4.30-5.90) m/uL Hgb (13.0-17.5) gm/dL Hct 20.5 L (39.0-53.0) % MCV (80.0-100.0) fL MCH (25.0-35.0) pg RDW (11.5-15.5) % Plt Count 56 L (150-450) k/uL Neutrophils # (Manual) 1.00 L (1.3-7.7) k/uL Lymphocytes # (Manual) 0.70 L (1.0-4.8) k/uL Metamyelocytes # (Man) 0.05 H (0) k/uL Myelocytes # (Manual) 0.02 H (0) k/uL Nucleated RBCs 2 H (0-0) /100 WBC Macrocytosis PT (9.0-12.0) sec INR (<1.2) D-Dimer (<0.60) mg/L FEU Sodium (137-145) mmol/L Carbon Dioxide (22-30) mmol/L BUN (9-20) mg/dL Creatinine (0.66-1.25) mg/dL Glucose (74-99) mg/dL Calcium (8.4-10.2) mg/dL Total Bilirubin (0.2-1.3) mg/dL AST (17-59) U/L C-Reactive Protein 15.00 H (0.00-0.80) mg/dL Total Protein (6.3-8.2) g/dL Albumin (3.5-5.0) g/dL Crossmatch See Detail 02/11/21 02/11/21 02/11/21 Range/Units 16:20 16:20 16:20 WBC 2.5 L (3.8-10.6) k/uL RBC 1.81 L (4.30-5.90) m/uL Hgb 6.6 L* (13.0-17.5) gm/dL Hct 19.7 L* (39.0-53.0) % MCV 109.0 H (80.0-100.0) fL MCH 36.5 H (25.0-35.0) pg RDW 17.9 H (11.5-15.5) % Plt Count 52 L (150-450) k/uL Neutrophils # (Manual) (1.3-7.7) k/uL Lymphocytes # (Manual) 0.60 L (1.0-4.8) k/uL Metamyelocytes # (Man) 0.08 H (0) k/uL Myelocytes # (Manual) (0) k/uL Nucleated RBCs (0-0) /100 WBC Macrocytosis Marked A PT 12.6 H (9.0-12.0) sec INR 1.2 H (<1.2) D-Dimer (<0.60) mg/L FEU Sodium 134 L (137-145) mmol/L Carbon Dioxide 21 L (22-30) mmol/L BUN 21 H (9-20) mg/dL Creatinine 1.29 H (0.66-1.25) mg/dL Glucose 118 H (74-99) mg/dL Calcium 8.0 L (8.4-10.2) mg/dL Total Bilirubin 1.5 H (0.2-1.3) mg/dL AST 13 L (17-59) U/L C-Reactive Protein (0.00-0.80) mg/dL Total Protein 5.2 L (6.3-8.2) g/dL Albumin 3.1 L (3.5-5.0) g/dL Crossmatch 02/12/21 02/12/21 02/12/21 Range/Units 07:01 07:01 07:01 WBC 3.2 L (3.8-10.6) k/uL RBC 2.15 L (4.30-5.90) m/uL Hgb 7.9 L (13.0-17.5) gm/dL Hct 22.9 L (39.0-53.0) % MCV 106.5 H (80.0-100.0) fL MCH 36.6 H (25.0-35.0) pg RDW 17.1 H (11.5-15.5) % Plt Count 57 L (150-450) k/uL Neutrophils # (Manual) (1.3-7.7) k/uL Lymphocytes # (Manual) (1.0-4.8) k/uL Metamyelocytes # (Man) (0) k/uL Myelocytes # (Manual) (0) k/uL Nucleated RBCs (0-0) /100 WBC Macrocytosis Marked A PT (9.0-12.0) sec INR (<1.2) D-Dimer 1.00 H (<0.60) mg/L FEU Sodium 133 L (137-145) mmol/L Carbon Dioxide 19 L (22-30) mmol/L BUN (9-20) mg/dL Creatinine 1.30 H (0.66-1.25) mg/dL Glucose 149 H (74-99) mg/dL Calcium 8.1 L (8.4-10.2) mg/dL Total Bilirubin 1.8 H (0.2-1.3) mg/dL AST 13 L (17-59) U/L C-Reactive Protein (0.00-0.80) mg/dL Total Protein 5.3 L (6.3-8.2) g/dL Albumin 3.1 L (3.5-5.0) g/dL Crossmatch Microbiology - Last 24 Hours (Table) 02/11/21 13:45 Gram Stain - Preliminary Bronchial Washings - Random Bronchial Washings Culture - Preliminary 02/11/21 13:45 Acid Fast Bacilli Culture - Preliminary Bronchial Washings - Random 02/11/21 13:45 Fungal Culture - Preliminary Bronchial Washings - Random 02/10/21 10:23 Blood Culture - Preliminary Blood No Growth after 24 hours Assessment and Plan Plan: #1. Shortness of breath, possibly related to mild interstitial pneumonitis, and anemia, rule out possibility of infectious etiology. CT chest without contrast showed patchy, pulmonary interstitial infiltrates, nonspecific. Patient is currently on a combination of azithromycin and Rocephin, Acyclovir and Bactrim DS. Pro-calcitonin level was 0.31 Legionella urine antigen was negative, COVID- 19 PCR was negative mycoplasma IgG and IgM were negative. ABX placed on cefepime and vancomycin. On acyclovir. The patient is receiving Bactrim for PCP prophylaxis 3 times a week. There went a bronchoscopy and bronchial lavage. Post bronchoscopy, encountered atrial fibrillation with rapid ventricular response, converted back into normal sinus rhythm. Currently is on 2 L about 2 by nasal cannula. Chest x-ray from today showing patchy perihilar and basilar pulmonary infiltrates. Cultures were sent and the results are still pending for now.. On today's chest x-ray, the patient has worsening in the bilateral pulmonary infiltrates. Obviously there is a concern for opportunistic infections. Myeloma progression versus acute lung injury cannot be completely excluded. Unlikely to be related to any form of congestion heart failure. #2. History of multiple myeloma with recent progression, and patient is on Empliciti. Patient is being considered for initiation of CAR-T therapy #3. Right arm pain, asymmetric blood pressure, no evidence of subclavian steal syndrome, vascular surgery is following #4. Acute kidney injury, renal function is stable for now and the creatinine is at 1.3 #5. Possible tumor lysis syndrome #6. Hypercalcemia secondary to multiple myeloma, #7. Chronic anemia #8. Hypertension #9. Depression #10. Sinus tachycardia Plan: Wean the FiO2 as tolerated to maintain saturation above 90% Bronchoscopy and BAL was done and the results are still pending for now Keep cefepime and vancomycin for now Obviously there is a concern for now for chest infection. Viral cultures, PCP, fungal, atypical mycobacterial and regular cultures were all sent Pro-calcitonin level to be rechecked for today Send another set of blood cultures Condition is very guarded. We'll continue to follow. May potentially transfer to the ICU there is any worsening in his condition. Repeat a noncontrast CAT scan of the chest to assess progression of the pulmonary infiltrates and better characterize the pulmonary infiltration. Based on my opinion, the findings are unlikely to be related to CHF and other possibilities are very much likely.
[2021-02-12] MEDS: CHOLECALCIFEROL 25 MCG (1000 IU) TABLET PO SCH (09:51)
[2021-02-12] MEDS: SODIUM BICARBONATE TAB 650 MG TAB PO SCH (09:51)
[2021-02-12] MEDS: CYANOCOBALAMIN 500 MCG TAB PO SCH (09:51)
[2021-02-12] MEDS: HYDROcodone/APAP 10-325MG 1 EACH TAB PO PRN ×2 (09:52→19:59)
[2021-02-12] MEDS: ACYCLOVIR 200 MG CAP PO SCH ×2 (09:58→21:09)
[2021-02-12 10:05] LABS: Band Neutrophils % 1 %; Myelocytes # (M) 0.03 k/uL (0); Myelocytes % 1 %; Neutrophils % (M) 36 %; Nucleated Red Blood Cells 2 /100 WBC (0-0); Total Cells Counted 200
[2021-02-12 10:06] LABS: Lymphocytes # (M) 0.99 k/uL (1.0-4.8); Monocytes # (M) 0.47 k/uL (0-1.0); WBC 3.1 k/uL (3.8-10.6)
--- NOTE | 2021-02-12 10:58 | CT ---
EXAMINATION TYPE: CT chest wo con DATE OF EXAM: 02/12/2021 COMPARISON: 02/04/2021 HISTORY: Dyspnea, patchy infiltrates CT DLP: 461.[address] of the chest was performed with lung and mediastinal window settings submitted. The la ck of contrast limits evaluation of the vascular, mediastinal and parenchymal structures including th e upper abdomen. LUNGS: Bilateral patchy and groundglass infiltrates are seen which have progressed since prior examin ation. Findings are compatible with Covid 19 pneumonia. MEDIASTINUM/CARO: Thoracic aorta is of normal caliber with limited evaluation given lack of contrast . The heart is not enlarged. No evidence for mediastinal mass. No lymph nodes greater than 1cm. UPPER ABDOMEN: No significant abnormality is seen. OTHER: No significant other abnormality. IMPRESSION: 1. Bilateral patchy and groundglass infiltrates are seen which have progressed since prior examinati on. Findings are compatible with Covid 19 pneumonia.
--- NOTE | 2021-02-12 11:41 | P.PN ---
Subjective This is a pleasant 50 years old male with multiple medical problems including multiple myeloma presents with acute kidney injury secondary to hypotension and hypercalcemia and currently is been followed closely by nephrology team while continued on normal saline at 75 mL/h. Also hematology/oncology team following the patient status post chemotherapy for hypercalcemia and status post pamidronate today. Pulmonary team and ID team for bilateral pneumonia, there is abnormal CT but clinically complaining only from exertional dyspnea. No fever or coughing. Patient currently current with ceftriaxone and Zithromax. Also patient is on home medication of acyclovir and Bactrim. Patient also continued on dexamethasone Other than that he is hemodynamically stable. No more fever. He is on room air. He has mild pancytopenia. Creatinine 1.5, calcium elevated at 10.8. Ejection fraction is 55-60%. CT of the chest showed patchy ground glass interstitial infiltrates., On 02/0402/08/2021 Patient still with exertional dyspnea. Very occasional dry coughing. No chest pain. No other specific complaints. He remains on room air and vitals are stable. No more fever. Labs are not concerning, he has stable pancytopenia, calcium is back to normal at 9. Creatinine improved significantly to 1.1. He has some mild evidence of acidemia with low carbon dioxide and patient was started on some sodium bicarbonate drip by nephrology team today. He remains on ceftriaxone and Zithromax. Dexamethasone which is a home medication. IV fluid. Several consultants on the case including pulmonary, ID, nephrology and oncology/hematology. 02/09/2021 Patient clinically the same with exertional dyspnea. His still mildly tachycardic and febrile and rest of vitals are stable. He still has pancytopenia with WBC 1.5, hemoglobin 6.9 and a platelet 59. H ematology team on the case. Creatinine 1.0. Chest x-ray showing worsening bilateral infiltrates, coronavirus detected is negative. We have reordered procalcitonin and proBNP. Patient is on antibiotics with ceftriaxone and Zithromax, acyclovir and Bactrim. ID team and pulmonary team on the case. 02/10/2021 Patient still with dyspnea. He had a fever of 101.8 today. And his chest x-ray looks worse. Currently he is on ceftriaxone and Zithromax. He has pancytopenia and his hemoglobin dropped to 6.4. He is getting 1 unit of blood transfusion. Creatinine normal. Anion gap is normal carbon dioxide slightly low. He remains on Zithromax and ceftriaxone and dexamethasone and sodium bicarb. We will discuss with infectious disease team about his antibiotic management. 02/11/2021 Patient is more tachypneic today. He denies chest pain. No other specific complaints. His vitals little worse, he still has a fever of 101.7. He is saturating 93% on room air. He is tachycardic around 110. Blood pressure is 99/69. Remains pancytopenic with WBC is 2.2, hemoglobin 7 after 1 unit of blood transfusion and platelets 56. Creatinine remains stable. Calcium was low. His antibiotics were adjusted to cefepime and IV vancomycin. Remains on dexamethasone. IV fluids of sodium bicarb was stopped and switched to bicarb pedal and started on IV Lasix 40 mg twice daily. Also oncology on the case for chemotherapy. His procalcitonin is mildly worsened up to 0.34. Patient eroded by pulmonary team for bronchoscopy tomorrow 02/12/2021 Patient is continued to be dyspneic and multiple select unit. No chest pain or significant cough. He has exertional dyspnea and he needs help going to the [facility]. He is tachypneic at 26, blood pressure is low normal for the last few days which looks his stable, currently 93/56. He is tachycardic at 114. And had fever yesterday. His CBC looks his stable with WBC 3.1, hemoglobin is improved 7.9 and platelets stable at 57. Creatinine 1.1, went up to 1.[address] of the chest without contrast showing bilateral patchy ground glass infiltrate which is progressed since admission. However patient covid test was checked 2 days ago that was negative, Patient remains on cefepime and IV vancomycin, voriconazole is been added. 13 considering the bronchoscopy. He is on sodium bicarbonate pills, IV fluid was stopped. Continued on IV Lasix 40 mg twice daily. Also he is on dexamethasone. Prognosis remains guarded Also he developed short period of A. fib, currently converted to sinus rhythm. Objective - Vital Signs Vital signs: Vital Signs Temp 99.2 F 02/12/21 08:00 Pulse 114 H 02/12/21 08:00 Resp 26 H 02/12/21 08:00 BP 93/56 02/12/21 08:00 Pulse Ox 97 02/12/21 08:00 Intake & Output 02/11/21 02/12/21 02/12/21 18:59 06:59 18:59 Intake Total 1480 730 0 Output Total 300 Balance 1180 730 0 Weight 95.3 kg Intake: IV 1000 Oral 480 480 0 Blood Product 250 Rc Irr Cpda1 Unit 250 [id number] Output: Urine 300 Other: Voiding Method Toilet Toilet # Voids 1 - Exam GENERAL: The patient is alert and oriented x3, not in any acute distress. Well developed, well nourished. HEENT: Pupils are round and equally reacting to light. EOMI. No scleral icterus. No conjunctival pallor. Normocephalic, atraumatic. No pharyngeal erythema. No thyromegaly. CARDIOVASCULAR: S1 and S2 present. No murmurs, rubs, or gallops. PULMONARY: Chest is clear to auscultation, no wheezing or crackles. ABDOMEN: Soft, nontender, nondistended, normoactive bowel sounds. No palpable organomegaly. MUSCULOSKELETAL: No joint swelling or deformity. EXTREMITIES: No cyanosis, clubbing, or pedal edema. NEUROLOGICAL: Gross neurological examination did not reveal any focal deficits. SKIN: No rashes. no petechiae. - Labs CBC & Chem 7: 02/12/21 07:01 02/12/21 07:01 Labs: Abnormal Lab Results - Last 24 Hours (Table) 02/09/21 02/11/21 02/11/21 Range/Units 15:10 06:21 16:20 WBC 2.5 L (3.8-10.6) k/uL RBC 1.81 L (4.30-5.90) m/uL Hgb 6.6 L* (13.0-17.5) gm/dL Hct 20.5 L 19.7 L* (39.0-53.0) % MCV 109.0 H (80.0-100.0) fL MCH 36.5 H (25.0-35.0) pg RDW 17.9 H (11.5-15.5) % Plt Count 56 L 52 L (150-450) k/uL Neutrophils # (Manual) 1.00 L (1.3-7.7) k/uL Lymphocytes # (Manual) 0.70 L 0.60 L (1.0-4.8) k/uL Metamyelocytes # (Man) 0.05 H 0.08 H (0) k/uL Myelocytes # (Manual) 0.02 H (0) k/uL Nucleated RBCs 2 H (0-0) /100 WBC Macrocytosis Marked A PT (9.0-12.0) sec INR (<1.2) D-Dimer (<0.60) mg/L FEU Sodium (137-145) mmol/L Carbon Dioxide (22-30) mmol/L BUN (9-20) mg/dL Creatinine (0.66-1.25) mg/dL Glucose (74-99) mg/dL Calcium (8.4-10.2) mg/dL Total Bilirubin (0.2-1.3) mg/dL AST (17-59) U/L Total Protein (6.3-8.2) g/dL Albumin (3.5-5.0) g/dL Crossmatch See Detail 02/11/21 02/11/21 02/12/21 Range/Units 16:20 16:20 07:01 WBC (3.8-10.6) k/uL RBC (4.30-5.90) m/uL Hgb (13.0-17.5) gm/dL Hct (39.0-53.0) % MCV (80.0-100.0) fL MCH (25.0-35.0) pg RDW (11.5-15.5) % Plt Count (150-450) k/uL Neutrophils # (Manual) (1.3-7.7) k/uL Lymphocytes # (Manual) (1.0-4.8) k/uL Metamyelocytes # (Man) (0) k/uL Myelocytes # (Manual) (0) k/uL Nucleated RBCs (0-0) /100 WBC Macrocytosis PT 12.6 H (9.0-12.0) sec INR 1.2 H (<1.2) D-Dimer (<0.60) mg/L FEU Sodium 134 L 133 L (137-145) mmol/L Carbon Dioxide 21 L 19 L (22-30) mmol/L BUN 21 H (9-20) mg/dL Creatinine 1.29 H 1.30 H (0.66-1.25) mg/dL Glucose 118 H 149 H (74-99) mg/dL Calcium 8.0 L 8.1 L (8.4-10.2) mg/dL Total Bilirubin 1.5 H 1.8 H (0.2-1.3) mg/dL AST 13 L 13 L (17-59) U/L Total Protein 5.2 L 5.3 L (6.3-8.2) g/dL Albumin 3.1 L 3.1 L (3.5-5.0) g/dL Crossmatch 02/12/21 02/12/21 Range/Units 07:01 07:01 WBC 3.1 L (3.8-10.6) k/uL RBC 2.15 L (4.30-5.90) m/uL Hgb 7.9 L (13.0-17.5) gm/dL Hct 22.9 L (39.0-53.0) % MCV 106.5 H (80.0-100.0) fL MCH 36.6 H (25.0-35.0) pg RDW 17.1 H (11.5-15.5) % Plt Count 57 L (150-450) k/uL Neutrophils # (Manual) 1.10 L (1.3-7.7) k/uL Lymphocytes # (Manual) 0.99 L (1.0-4.8) k/uL Metamyelocytes # (Man) (0) k/uL Myelocytes # (Manual) 0.03 H (0) k/uL Nucleated RBCs 2 H (0-0) /100 WBC Macrocytosis Marked A PT (9.0-12.0) sec INR (<1.2) D-Dimer 1.00 H (<0.60) mg/L FEU Sodium (137-145) mmol/L Carbon Dioxide (22-30) mmol/L BUN (9-20) mg/dL Creatinine (0.66-1.25) mg/dL Glucose (74-99) mg/dL Calcium (8.4-10.2) mg/dL Total Bilirubin (0.2-1.3) mg/dL AST (17-59) U/L Total Protein (6.3-8.2) g/dL Albumin (3.5-5.0) g/dL Crossmatch Microbiology - Last 24 Hours (Table) 02/11/21 13:45 Gram Stain - Preliminary Bronchial Washings - Random Bronchial Washings Culture - Preliminary 02/11/21 13:45 Acid Fast Bacilli Culture - Preliminary Bronchial Washings - Random 02/11/21 13:45 Fungal Culture - Preliminary Bronchial Washings - Random 02/10/21 10:23 Blood Culture - Preliminary Blood No Growth after 24 hours Assessment and Plan Assessment: Bilateral interstitial pneumonia. With bilateral groundglass and interstitial infiltrates. Acute kidney injury secondary to hypercalcemia and hypotension, improving Multiple myeloma on chemotherapy short period of A. fib, currently converted to sinus rhythm Hypercalcemia and hyperparathyroidism status post pamidronate Ischemia Pancytopenia secondary to multiple myeloma and medication Plan: This is a pleasant 50 years old male who presents with pneumonia, PAUL and hypercalcemia and multiple myeloma Continue with antibiotics. Infectious disease team, currently on cefepime and IV vancomycin. Voriconazole added. ID and pulmonary team on the case.We will follow-up with their recommendation regarding treatment Bronchoscopy in the a.m. Discontinue hydration, continue with IV Lasix. nephrology team on the case Continue chemotherapy per hematology/oncology team will follow the patient closely Labs and medication were reviewed.. Continue same treatment. Continue with symptomatic treatment. Resume home medication. Monitor lytes and vitals. DVT and GI prophylaxis. Further recommendationsas per clinical course of the patient DVT prophylaxis: Subcutaneous heparin GI Prophylaxis: ppi Prognosis is guarded
[2021-02-12] MEDS: AMIODARONE 450 MG in DEXTROSE 5% IN WATER 250 ML IV SCH ×4 (12:28→16:00)
[2021-02-12] MEDS ORDERED: VANCOMYCIN TROUGH DUE 1 EACH MISC MISCELLANE ONE (14:00)
[2021-02-12] MEDS: VORICONAZOLE 200 MG in SODIUM CHLORIDE 0.9% 100 ML IVPB SCH ×2 (14:15→23:20)
[2021-02-12] MEDS: DEXTROSE 5% IVPB SCH ×2 (14:19)
[2021-02-12] MEDS: WATER IVPB SCH ×2 (14:19)
[2021-02-12] MEDS: PENTAMIDINE IVPB SCH ×2 (14:19)
--- NOTE | 2021-02-12 14:28 | P.PN ---
Subjective Progress Note Date: 02/12/21 Follow-up for acute kidney injury. Admits making good urine, mercury documentation. Family at bedside. Objective - Vital Signs Vital signs: Vital Signs Temp 99.1 F 02/12/21 11:43 Pulse 110 H 02/12/21 11:43 Resp 23 02/12/21 11:43 BP 93/59 02/12/21 11:43 Pulse Ox 96 02/12/21 11:43 Intake & Output 02/11/21 02/12/21 02/12/21 18:59 06:59 18:59 Intake Total 1480 730 120 Output Total 300 Balance 1180 730 120 Weight 95.3 kg Intake: IV 1000 Oral 480 480 120 Blood Product 250 Rc Irr Cpda1 Unit 250 [id number] Output: Urine 300 Other: Voiding Method Toilet Toilet # Voids 1 - Exam No acute distress S1-S2 heard Decreased breath sounds Edema - Labs CBC & Chem 7: 02/12/21 07:01 02/12/21 07:01 Labs: Abnormal Lab Results - Last 24 Hours (Table) 02/09/21 02/11/21 02/11/21 Range/Units 15:10 16:20 16:20 WBC 2.5 L (3.8-10.6) k/uL RBC 1.81 L (4.30-5.90) m/uL Hgb 6.6 L* (13.0-17.5) gm/dL Hct 19.7 L* (39.0-53.0) % MCV 109.0 H (80.0-100.0) fL MCH 36.5 H (25.0-35.0) pg RDW 17.9 H (11.5-15.5) % Plt Count 52 L (150-450) k/uL Neutrophils # (Manual) (1.3-7.7) k/uL Lymphocytes # (Manual) 0.60 L (1.0-4.8) k/uL Metamyelocytes # (Man) 0.08 H (0) k/uL Myelocytes # (Manual) (0) k/uL Nucleated RBCs (0-0) /100 WBC Macrocytosis Marked A PT 12.6 H (9.0-12.0) sec INR 1.2 H (<1.2) D-Dimer (<0.60) mg/L FEU Sodium (137-145) mmol/L Carbon Dioxide (22-30) mmol/L BUN (9-20) mg/dL Creatinine (0.66-1.25) mg/dL Glucose (74-99) mg/dL Calcium (8.4-10.2) mg/dL Total Bilirubin (0.2-1.3) mg/dL AST (17-59) U/L Total Protein (6.3-8.2) g/dL Albumin (3.5-5.0) g/dL Crossmatch See Detail 02/11/21 02/12/21 02/12/21 Range/Units 16:20 07:01 07:01 WBC 3.1 L (3.8-10.6) k/uL RBC 2.15 L (4.30-5.90) m/uL Hgb 7.9 L (13.0-17.5) gm/dL Hct 22.9 L (39.0-53.0) % MCV 106.5 H (80.0-100.0) fL MCH 36.6 H (25.0-35.0) pg RDW 17.1 H (11.5-15.5) % Plt Count 57 L (150-450) k/uL Neutrophils # (Manual) 1.10 L (1.3-7.7) k/uL Lymphocytes # (Manual) 0.99 L (1.0-4.8) k/uL Metamyelocytes # (Man) (0) k/uL Myelocytes # (Manual) 0.03 H (0) k/uL Nucleated RBCs 2 H (0-0) /100 WBC Macrocytosis Marked A PT (9.0-12.0) sec INR (<1.2) D-Dimer (<0.60) mg/L FEU Sodium 134 L 133 L (137-145) mmol/L Carbon Dioxide 21 L 19 L (22-30) mmol/L BUN 21 H (9-20) mg/dL Creatinine 1.29 H 1.30 H (0.66-1.25) mg/dL Glucose 118 H 149 H (74-99) mg/dL Calcium 8.0 L 8.1 L (8.4-10.2) mg/dL Total Bilirubin 1.5 H 1.8 H (0.2-1.3) mg/dL AST 13 L 13 L (17-59) U/L Total Protein 5.2 L 5.3 L (6.3-8.2) g/dL Albumin 3.1 L 3.1 L (3.5-5.0) g/dL Crossmatch 02/12/21 Range/Units 07:01 WBC (3.8-10.6) k/uL RBC (4.30-5.90) m/uL Hgb (13.0-17.5) gm/dL Hct (39.0-53.0) % MCV (80.0-100.0) fL MCH (25.0-35.0) pg RDW (11.5-15.5) % Plt Count (150-450) k/uL Neutrophils # (Manual) (1.3-7.7) k/uL Lymphocytes # (Manual) (1.0-4.8) k/uL Metamyelocytes # (Man) (0) k/uL Myelocytes # (Manual) (0) k/uL Nucleated RBCs (0-0) /100 WBC Macrocytosis PT (9.0-12.0) sec INR (<1.2) D-Dimer 1.00 H (<0.60) mg/L FEU Sodium (137-145) mmol/L Carbon Dioxide (22-30) mmol/L BUN (9-20) mg/dL Creatinine (0.66-1.25) mg/dL Glucose (74-99) mg/dL Calcium (8.4-10.2) mg/dL Total Bilirubin (0.2-1.3) mg/dL AST (17-59) U/L Total Protein (6.3-8.2) g/dL Albumin (3.5-5.0) g/dL Crossmatch Microbiology - Last 24 Hours (Table) 02/10/21 10:23 Blood Culture - Preliminary Blood No Growth after 48 hours 02/11/21 13:45 Gram Stain - Preliminary Bronchial Washings - Random Bronchial Washings Culture - Preliminary 02/11/21 13:45 Acid Fast Bacilli Culture - Preliminary Bronchial Washings - Random 02/11/21 13:45 Fungal Culture - Preliminary Bronchial Washings - Random Assessment and Plan Assessment: #1 acute kidney injury secondary to hemodynamic ATN with low blood pressures. Rule out urinary retention. #2 hypervolemic hyponatremia #3 metabolic acidosis secondary to acute kidney injury #4 volume overload #5 hypotensive episodes #6 multiple myeloma on chemotherapy Plan: #1 renal function stable. Add midodrine for hemodynamic support #2 check bladder scan to rule out urinary retention #3 continue with Lasix 40 mg IV twice a day #4 strict ins and outs #5 avoid nephrotoxic agents and hypotensive episodes
[2021-02-12] MEDS: MIDODRINE 5 MG TAB PO SCH ×2 (16:04→18:34)
[2021-02-12] MEDS: ACETAMINOPHEN TAB 325 MG TAB PO PRN (16:04)
[2021-02-12 17:12] LABS: Glucose,Whole Blood 138 mg/dL (75-99)
[2021-02-12] MEDS: DEXTROSE 5% IN WATER 1,000 ML with SODIUM BICARB (1 MEQ/ML) 150 ML IV SCH (19:59)
[2021-02-12] MEDS: ZOLPIDEM 5 MG TAB PO SCH (21:09)
[2021-02-12] MEDS: MIRTAZAPINE 15 MG TAB PO SCH (21:09)
[2021-02-12] MEDS: ESCITALOPRAM 20 MG TAB PO SCH (21:09)
--- NOTE | 2021-02-12 21:32 | PN ---
PROGRESS NOTE DATE OF SERVICE: 02/12/2021 REASON FOR FOLLOWUP: Pneumonia. INTERVAL HISTORY: The patient was seen on rounds this morning. The patient was afebrile this morning; however, he did spike a fever of 102 degrees Fahrenheit. The patient is hemodynamically stable, not on any pressor support. Respiratory status remains borderline, requiring supplemental oxygen. Has been complaining of shortness of breath and did have a cough, not bringing up any sputum. No vomiting. No abdominal pain or diarrhea. PHYSICAL EXAMINATION: Blood pressure 132/69, pulse of 107, temperature of 102. He is 94% on 3 L nasal cannula. General description is a middle-aged male up in the room in no distress. RESPIRATORY SYSTEM: Unlabored breathing. Decreased intensity of breath sounds. No wheeze. HEART: S1, S2. Regular rate and rhythm. ABDOMEN: Soft. No tenderness. EXTREMITIES: No edema of the feet. LABS: Hemoglobin is 7.9, white count 3.1. Creatinine is 1.30. Bronch cultures are currently pending. DIAGNOSTIC IMPRESSION AND PLAN: Patient with bilateral interstitial infiltrate concerning for pneumonia in this patient with a history of multiple myeloma transplant and has been exposed to chemo. I had a detailed discussion with his oncologist as well as power systems engineer on the likely etiology agent. Not behaving like a typical bacterial pneumonia such as MRSA with slight worsening of the white count. Vancomycin will be discontinued with a differential of possible PCP and aspergillosis. Legionella was ruled out by a negative urine test. We do not have a available at this facility; hence will use IV pentamidine, voriconazole, cefepime. Overall prognosis remains guarded. Continue with supportive care. MMODL / IJN: [id number] /
[2021-02-12] MEDS: METOPROLOL TARTRATE 25 MG TAB PO SCH (22:19)
[2021-02-13] MEDS: CEFEPIME 2 GM in SODIUM CHLORIDE 0.9% 100 ML IVPB SCH ×3 (00:14→15:37)
[2021-02-13] MEDS: ACETAMINOPHEN TAB 325 MG TAB PO PRN (03:44)
[2021-02-13] MEDS: PANTOPRAZOLE 40 MG TABLET PO SCH (06:23)
[2021-02-13] MEDS: DEXTROSE 5% IN WATER 1,000 ML with SODIUM BICARB (1 MEQ/ML) 150 ML IV SCH (06:23)
[2021-02-13] MEDS: MIDODRINE 5 MG TAB PO SCH ×4 (06:23→17:20)
[2021-02-13] MEDS: METOPROLOL TARTRATE 25 MG TAB PO SCH ×3 (06:23→21:21)
[2021-02-13] MEDS: FUROSEMIDE 10 MG/ML 4 ML VIAL IV SCH ×2 (07:13→17:59)
--- NOTE | 2021-02-13 07:42 | P.PN ---
Subjective Progress Note Date: 02/13/21 Principal diagnosis: Paroxysmal atrial fibrillation This is an unfortunate 50-year-old gentleman with a diagnosis of multiple myeloma with recent progression received chemotherapy was admitted to the hospital with increasing shortness of breath. He was diagnosed with pneumoniti s. Currently pulmonary/critical care team on the case. Beside that the patient was found to be pancytopenic. His hemoglobin was below 7 and received one unit of packed RBC with a hemoglobin yesterday was 7.9. We requested to see the patient because he went into atrial fibrillation with RVR. Subsequently he was converted to normal sinus mechanism. The patient was seen this morning in the intensive care unit. He stated that the shortness of breath is a slightly better. He reports no symptoms of chest pain or chest discomfort. He did have another episode was A. fib/RVR yesterday and he converted to normal sinus mechanism and now he is in sinus rhythm with a resting heart rate in the 90s. He was started on metoprolol 25 mg by mouth twice a day. I am going to increase the dose to 25 mg by mouth 3 times a day. Hemodynamically he is stable and he is not on any vasopressors at this point. He is on Lasix IV prior nephrology service because he was diagnosed with acute renal failure/ATN. An echocardiogram was performed earlier this year and that showed normal left ventricle systolic function. Obviously the patient cannot be on anticoagulation in view of the thrombocytopenia and the risk of bleeding. Overall the prognosis is poor. No blood work this morning as of yet. Objective - Vital Signs Vital signs: Vital Signs Temp 98.2 F 02/13/21 05:00 Pulse 98 02/13/21 05:00 Resp 25 H 02/13/21 05:00 BP 136/69 02/13/21 05:00 Pulse Ox 95 02/13/21 05:00 Intake & Output 02/12/21 02/13/21 02/13/21 18:59 06:59 18:59 Intake Total 760 1100 Output Total 200 1000 Balance 560 100 Weight 94.5 kg Intake: IV 60 1100 0.9 60 400 Dextrose 5% in Water 1, 700 000 ml @ 100 mls/hr IV . [id number] [place]LEMAN with Sodium Bicarb (1 Meq/ml) 150 ml Rx#:[id number] Intake, IV Titration 100 Amount Cefepime 2 gm In Sodium 100 Chloride 0.9% 100 ml @ 25 mls/hr IVPB Q8HR [facility] Rx# :[id number] Oral 600 Output: Urine 200 1000 Other: Voiding Method Toilet Urinal - Constitutional General appearance: Present: no acute distress - Respiratory Respiratory: bilateral: diminished - Cardiovascular Rhythm: regular Heart sounds: normal: S1, S2 - Labs CBC & Chem 7: 02/12/21 07:01 02/13/21 04:34 Labs: Abnormal Lab Results - Last 24 Hours (Table) 02/12/21 02/12/21 02/12/21 Range/Units 07:01 07:01 07:01 WBC 3.1 L (3.8-10.6) k/uL RBC 2.15 L (4.30-5.90) m/uL Hgb 7.9 L (13.0-17.5) gm/dL Hct 22.9 L (39.0-53.0) % MCV 106.5 H (80.0-100.0) fL MCH 36.6 H (25.0-35.0) pg RDW 17.1 H (11.5-15.5) % Plt Count 57 L (150-450) k/uL Neutrophils # (Manual) 1.10 L (1.3-7.7) k/uL Lymphocytes # (Manual) 0.99 L (1.0-4.8) k/uL Myelocytes # (Manual) 0.03 H (0) k/uL Nucleated RBCs 2 H (0-0) /100 WBC Macrocytosis Marked A D-Dimer 1.00 H (<0.60) mg/L FEU Sodium 133 L (137-145) mmol/L Carbon Dioxide 19 L (22-30) mmol/L Creatinine 1.30 H (0.66-1.25) mg/dL Glucose 149 H (74-99) mg/dL POC Glucose (mg/dL) (75-99) mg/dL Calcium 8.1 L (8.4-10.2) mg/dL Total Bilirubin 1.8 H (0.2-1.3) mg/dL AST 13 L (17-59) U/L Total Protein 5.3 L (6.3-8.2) g/dL Albumin 3.1 L (3.5-5.0) g/dL 02/12/21 Range/Units 17:10 WBC (3.8-10.6) k/uL RBC (4.30-5.90) m/uL Hgb (13.0-17.5) gm/dL Hct (39.0-53.0) % MCV (80.0-100.0) fL MCH (25.0-35.0) pg RDW (11.5-15.5) % Plt Count (150-450) k/uL Neutrophils # (Manual) (1.3-7.7) k/uL Lymphocytes # (Manual) (1.0-4.8) k/uL Myelocytes # (Manual) (0) k/uL Nucleated RBCs (0-0) /100 WBC Macrocytosis D-Dimer (<0.60) mg/L FEU Sodium (137-145) mmol/L Carbon Dioxide (22-30) mmol/L Creatinine (0.66-1.25) mg/dL Glucose (74-99) mg/dL POC Glucose (mg/dL) 138 H (75-99) mg/dL Calcium (8.4-10.2) mg/dL Total Bilirubin (0.2-1.3) mg/dL AST (17-59) U/L Total Protein (6.3-8.2) g/dL Albumin (3.5-5.0) g/dL Microbiology - Last 24 Hours (Table) 02/11/21 13:45 Acid Fast Bacilli Smear - Final Bronchial Washings - Random Acid Fast Bacilli Culture - Preliminary 02/10/21 10:23 Blood Culture - Preliminary Blood No Growth after 48 hours 02/11/21 13:45 Gram Stain - Preliminary Bronchial Washings - Random Bronchial Washings Culture - Preliminary Assessment and Plan Assessment: Assessment #1 paroxysmal atrial fibrillation, new diagnosis, the patient is in normal sinus mechanism #2 shortness of breath which is likely to be multifocal and related to pneumonitis as well as anemia as well as multiple other factors #3 acute renal failure managed by the nephrology service #4 multiple myeloma which seems to be progressed #5 multiple comorbid conditions including pancytopenia plan #1 increase the dose of metoprolol #2 hold on any anticoagulation #3 the echo from earlier this year showed normal left ventricular systolic function #4 overall poor prognosis.
[2021-02-13 07:47] LABS: Anisocytosis Slight; HCT 20.7 % (39.0-53.0); MCH 35.8 pg (25.0-35.0); MCHC 33.9 g/dL (31.0-37.0); MCV 105.4 fL (80.0-100.0); Macrocytosis Moderate; Mean Platelet Volume 9.5; RBC 1.97 m/uL (4.30-5.90)
[2021-02-13 07:50] LABS: Platelet Count 61 k/uL (150-450)
--- NOTE | 2021-02-13 08:05 | P.PN ---
Subjective Progress Note Date: 02/13/21 . On 02/13/2021, the patient is being seen for a follow-up in the intensive care unit. The patient a chest x-ray to the ICU as the patient became progressively more short of breath and hypoxic. A computed tomography scan of the chest was conducted and showed worsening of the bilateral pulmonary pulses were noted earlier. Specifically, the CAT scan of the chest shows bilateral patchy groundglass pulmonary infiltrates that had progressed significantly. Note that this patient has been checked for COVID-19 on multiple occasions and came back all negative. The same time, bronchoscopy and bronchial lavage was done and the results are still pending for now. Meanwhile, we broadened antibiotic coverage because of interval worsening. The patient was started on voriconazole. The patient was also started on pentamadine regarding the possibility of an underlying PCP infection despite the fact that the patient was receiving Bactrim for PCP prophylaxis. He is still having episodes of fever. White cell count is at 3.0. Hemoglobin is at 7. He is less tachycardic compared to yesterday. His current antibiotic or antimicrobial coverage includes IV acyclovir, IV cefepime, voriconazole, IV pentamadine and vancomycin. His vancomycin trough is at 17.4. All of the cultures are negative thus far. Hemodynamically he is stable. His communicating. He is still at the liters of oxygen by nasal cannula and his pulse ox is currently at 97%. He remains on Decadron 28 mg by mouthq month, and the patient is also on bicarb infusion at the rate of 100 mL an hour. Repeat bicarb level is still pending for now as electrodes are still pending. Meanwhile, the patient is also being diuresis with Lasix 40 mg IV every 12 hours as the patient has significant third spacing and edema in the upper and lower extremities. The neck fluid balance has been +1.9 L over the past 24 hours. Objective - Vital Signs Vital signs: Vital Signs Temp 98.2 F 02/13/21 05:00 Pulse 103 H 02/13/21 07:00 Resp 20 02/13/21 07:00 BP 140/66 02/13/21 07:00 Pulse Ox 97 02/13/21 07:00 Intake & Output 02/12/21 02/13/21 02/13/21 18:59 06:59 18:59 Intake Total 760 1200 100 Output Total 200 1000 Balance 560 200 100 Weight 94.5 kg Intake: IV 60 1200 100 0.9 60 400 Dextrose 5% in Water 1, 800 100 000 ml @ 100 mls/hr IV . [id number] [facility] with Sodium Bicarb (1 Meq/ml) 150 ml Rx#:[id number] Intake, IV Titration 100 Amount Cefepime 2 gm In Sodium 100 Chloride 0.9% 100 ml @ 25 mls/hr IVPB Q8HR [facility] Rx# :[id number] Oral 600 Output: Urine 200 1000 Other: Voiding Method Toilet Urinal - Exam GENERAL EXAM: Alert, very pleasant, 50-year-old white male, on 3 L of oxygen by nasal cannula. HEAD: Normocephalic/atraumatic. EYES: Normal reaction of pupils, equal size. Conjunctiva pink, sclera white. NOSE: Clear with pink turbinates. THROAT: No erythema or exudates. NECK: No masses, no JVD, no thyroid enlargement, no adenopathy. CHEST: No chest wall deformity. Symmetrical expansion. LUNGS: Equal air entry with mild bibasilar crackles, but no wheeze, rhonchi or dullness. The patient has scattered rhonchi heard throughout the lung lion bilaterally. CVS: Regular rate and rhythm, normal S1 and S2, no gallops, no murmurs, no rubs ABDOMEN: Soft, nontender. No hepatosplenomegaly, normal bowel sounds, no guarding or rigidity. EXTREMITIES: No clubbing,mild generalized edema, no cyanosis, 2+ pulses and upper and lower extremities. MUSCULOSKELETAL: Muscle strength and tone normal. SPINE: No scoliosis or deformity SKIN: No rashes CENTRAL NERVOUS SYSTEM: Alert and oriented -3. No focal deficits, tone is normal in all 4 extremities. PSYCHIATRIC: Alert and oriented -3. Appropriate affect. Intact judgment and insight. - Labs CBC & Chem 7: 02/13/21 04:34 02/13/21 04:34 Labs: Abnormal Lab Results - Last 24 Hours (Table) 02/12/21 02/12/21 02/12/21 Range/Units 07:01 07:01 07:01 WBC 3.1 L (3.8-10.6) k/uL RBC 2.15 L (4.30-5.90) m/uL Hgb 7.9 L (13.0-17.5) gm/dL Hct 22.9 L (39.0-53.0) % MCV 106.5 H (80.0-100.0) fL MCH 36.6 H (25.0-35.0) pg RDW 17.1 H (11.5-15.5) % Plt Count 57 L (150-450) k/uL Neutrophils # (Manual) 1.10 L (1.3-7.7) k/uL Lymphocytes # (Manual) 0.99 L (1.0-4.8) k/uL Myelocytes # (Manual) 0.03 H (0) k/uL Nucleated RBCs 2 H (0-0) /100 WBC Macrocytosis Marked A D-Dimer 1.00 H (<0.60) mg/L FEU Sodium 133 L (137-145) mmol/L Carbon Dioxide 19 L (22-30) mmol/L Creatinine 1.30 H (0.66-1.25) mg/dL Glucose 149 H (74-99) mg/dL POC Glucose (mg/dL) (75-99) mg/dL Calcium 8.1 L (8.4-10.2) mg/dL Total Bilirubin 1.8 H (0.2-1.3) mg/dL AST 13 L (17-59) U/L Total Protein 5.3 L (6.3-8.2) g/dL Albumin 3.1 L (3.5-5.0) g/dL 02/12/21 02/13/21 Range/Units 17:10 04:34 WBC 3.0 L (3.8-10.6) k/uL RBC 1.97 L (4.30-5.90) m/uL Hgb 7.0 L (13.0-17.5) gm/dL Hct 20.7 L (39.0-53.0) % MCV 105.4 H (80.0-100.0) fL MCH 35.8 H (25.0-35.0) pg RDW 17.0 H (11.5-15.5) % Plt Count 61 L (150-450) k/uL Neutrophils # (Manual) (1.3-7.7) k/uL Lymphocytes # (Manual) (1.0-4.8) k/uL Myelocytes # (Manual) (0) k/uL Nucleated RBCs (0-0) /100 WBC Macrocytosis D-Dimer (<0.60) mg/L FEU Sodium (137-145) mmol/L Carbon Dioxide (22-30) mmol/L Creatinine (0.66-1.25) mg/dL Glucose (74-99) mg/dL POC Glucose (mg/dL) 138 H (75-99) mg/dL Calcium (8.4-10.2) mg/dL Total Bilirubin (0.2-1.3) mg/dL AST (17-59) U/L Total Protein (6.3-8.2) g/dL Albumin (3.5-5.0) g/dL Microbiology - Last 24 Hours (Table) 02/11/21 13:45 Acid Fast Bacilli Smear - Final Bronchial Washings - Random Acid Fast Bacilli Culture - Preliminary 02/10/21 10:23 Blood Culture - Preliminary Blood No Growth after 48 hours 02/11/21 13:45 Gram Stain - Preliminary Bronchial Washings - Random Bronchial Washings Culture - Preliminary Assessment and Plan Plan: #1. Shortness of breath, possibly related to mild interstitial pneumonitis, and anemia, rule out possibility of infectious etiology. CT chest without contrast showed patchy, pulmonary interstitial infiltrates, nonspecific. Patient is currently on a combination of azithromycin and Rocephin, Acyclovir and Bactrim DS. Pro-calcitonin level was 0.31 Legionella urine antigen was negative, COVID- 19 PCR was negative mycoplasma IgG and IgM were negative. ABX placed on cefepime and vancomycin. On acyclovir. The patient is receiving Bactrim for PCP prophylaxis 3 times a week. There went a bronchoscopy and bronchial lavage. Subsequently, the patient had significant progression of the pulmonary infiltrates bilaterally and the patient worsening pneumonia. This was evident on the CAT scan of the chest. The chest x-ray from today still showing diffuse bilateral pulmonary infiltrates. He remains on 3 L of oxygen by nasal cannula. Antimicrobial coverage has been modified to include a combination of cefepime, vancomycin, acyclovir and pentamadine and IV voriconazole.. The patient is also on IV Lasix. COVID-19 testing is been negative. Bronchoalveolar lavage has been negative. Still having episodes of fever. Consider underlying acute lung injury secondary to underlying malignancy/ARDS. Consider pulmonary involvement with his hematologic malignancy. The patient remains on phase of oxygen by nasal cannula for now. Currently is in the intensive care unit. The patient is receiving Decadron 24 mg every week. #2. History of multiple myeloma with recent progression, and patient is on Empliciti. Patient is being considered for initiation of CAR-T therapy #3. Right arm pain, asymmetric blood pressure, no evidence of subclavian steal syndrome, vascular surgery is following #4. Acute kidney injury, renal function is stable for now and the creatinine is at 1.3 [facility] awaiting follow-up labs. #5. Possible tumor lysis syndrome #6. Hypercalcemia secondary to multiple myeloma, #7. Chronic anemia #8. Hypertension #9. Depression #10. Sinus tachycardia Plan: Wean the FiO2 as tolerated to maintain saturation above 90% Bronchoscopy and BAL was done and the results are still pending for now Keep cefepime and vancomycin for now, also continued IV acyclovir, IV pentamadine and voriconazole Obviously there is a concern for now for chest infection. Viral cultures, PCP, fungal, atypical mycobacterial and regular cultures were all sent mind appropriate antibiotic adjustments was done. Pro-calcitonin level to be rechecked for today, and the level is at 0.34 Send another set of blood cultures, cultures are still negative for now Condition is very guarded. We'll continue to follow. May potentially transfer to the ICU there is any worsening in his condition. Awaiting the follow-up electrolytes and will decide on a bicarb infusion accordingly Monitor renal function Reviewed the follow-up chest x-ray from today is essentially consistent with bilateral infiltrates and pneumonia Condition is critical and prognosis poor baseline above-mentioned comorbidities. From a critically care evaluation.>30 min Time with Patient: Greater than 30
[2021-02-13 08:18] LABS: Albumin 2.8 g/dL (3.5-5.0); Calcium 7.7 mg/dL (8.4-10.2); Potassium 3.6 mmol/L (3.5-5.1); Total Bilirubin 1.5 mg/dL (0.2-1.3)
[2021-02-13 08:32] LABS: Eosinophils # (M) 0.27 k/uL (0-0.7); Lymphocytes # (M) 0.69 k/uL (1.0-4.8); Monocytes # (M) 0.57 k/uL (0-1.0); Myelocytes # (M) 0.06 k/uL (0); Myelocytes % 2 %; Neutrophils # (M) 1.47 k/uL (1.3-7.7); Neutrophils % (M) 49 %; Nucleated Red Blood Cells 1 /100 WBC (0-0); Total Cells Counted 200
[2021-02-13 08:38] LABS: Poikilocytosis (M) Present; Tear Drop Cells Present
--- NOTE | 2021-02-13 08:42 | XR ---
EXAMINATION TYPE: XR chest 1V portable DATE OF EXAM: 02/13/2021 COMPARISON: 02/12/2021 HISTORY: Shortness of breath TECHNIQUE: Single frontal view of the chest is obtained. FINDINGS: Bilateral airspace infiltrates persist right greater than left without significant change. The cardiac silhouette size is within normal limits. The osseous structures are intact. IMPRESSION: 1. Bilateral airspace infiltrates persist right greater than left without significant change.
--- NOTE | 2021-02-13 08:44 | P.PN ---
Subjective Progress Note Date: 02/13/21 Follow-up for acute kidney injury. Transfer to ICU last night with Agustina lebron RVR. Lying comfortable now. Hemodynamically stable. Good urine output, postvoid of 100 ML's. Objective - Vital Signs Vital signs: Vital Signs Temp 98.2 F 02/13/21 05:00 Pulse 103 H 02/13/21 07:00 Resp 20 02/13/21 07:00 BP 140/66 02/13/21 07:00 Pulse Ox 97 02/13/21 07:00 Intake & Output 02/12/21 02/13/21 02/13/21 18:59 06:59 18:59 Intake Total 760 1200 100 Output Total 200 1000 Balance 560 200 100 Weight 94.5 kg Intake: IV 60 1200 100 0.9 60 400 Dextrose 5% in Water 1, 800 100 000 ml @ 100 mls/hr IV . [id number] [facility] with Sodium Bicarb (1 Meq/ml) 150 ml Rx#:[id number] Intake, IV Titration 100 Amount Cefepime 2 gm In Sodium 100 Chloride 0.9% 100 ml @ 25 mls/hr IVPB Q8HR [facility] Rx# :[id number] Oral 600 Output: Urine 200 1000 Other: Voiding Method Toilet Urinal - Exam No acute distress S1-S2 heard Decreased breath sounds Edema - Labs CBC & Chem 7: 02/13/21 04:34 02/13/21 04:34 Labs: Abnormal Lab Results - Last 24 Hours (Table) 02/12/21 02/12/21 02/13/21 Range/Units 07:01 17:10 04:34 WBC 3.1 L (3.8-10.6) k/uL RBC (4.30-5.90) m/uL Hgb (13.0-17.5) gm/dL Hct (39.0-53.0) % MCV (80.0-100.0) fL MCH (25.0-35.0) pg RDW (11.5-15.5) % Plt Count (150-450) k/uL Neutrophils # (Manual) 1.10 L (1.3-7.7) k/uL Lymphocytes # (Manual) 0.99 L (1.0-4.8) k/uL Myelocytes # (Manual) 0.03 H (0) k/uL Nucleated RBCs 2 H (0-0) /100 WBC Sodium 132 L (137-145) mmol/L BUN 21 H (9-20) mg/dL Glucose 165 H (74-99) mg/dL POC Glucose (mg/dL) 138 H (75-99) mg/dL Calcium 7.7 L (8.4-10.2) mg/dL Total Bilirubin 1.5 H (0.2-1.3) mg/dL AST 12 L (17-59) U/L Total Protein 5.0 L (6.3-8.2) g/dL Albumin 2.8 L (3.5-5.0) g/dL 02/13/21 Range/Units 04:34 WBC 3.0 L (3.8-10.6) k/uL RBC 1.97 L (4.30-5.90) m/uL Hgb 7.0 L (13.0-17.5) gm/dL Hct 20.7 L (39.0-53.0) % MCV 105.4 H (80.0-100.0) fL MCH 35.8 H (25.0-35.0) pg RDW 17.0 H (11.5-15.5) % Plt Count 61 L (150-450) k/uL Neutrophils # (Manual) (1.3-7.7) k/uL Lymphocytes # (Manual) 0.69 L (1.0-4.8) k/uL Myelocytes # (Manual) 0.06 H (0) k/uL Nucleated RBCs 1 H (0-0) /100 WBC Sodium (137-145) mmol/L BUN (9-20) mg/dL Glucose (74-99) mg/dL POC Glucose (mg/dL) (75-99) mg/dL Calcium (8.4-10.2) mg/dL Total Bilirubin (0.2-1.3) mg/dL AST (17-59) U/L Total Protein (6.3-8.2) g/dL Albumin (3.5-5.0) g/dL Microbiology - Last 24 Hours (Table) 02/11/21 13:45 Acid Fast Bacilli Smear - Final Bronchial Washings - Random Acid Fast Bacilli Culture - Preliminary 02/10/21 10:23 Blood Culture - Preliminary Blood No Growth after 48 hours 02/11/21 13:45 Gram Stain - Preliminary Bronchial Washings - Random Bronchial Washings Culture - Preliminary Assessment and Plan Assessment: #1 acute kidney injury secondary to hemodynamic ATN with low blood pressures. #2 hypervolemic hyponatremia #3 metabolic acidosis secondary to acute kidney injury #4 volume overload #5 hypotensive episodes #6 multiple myeloma on chemotherapy Plan: #1 renal function stable. On midodrine for hemodynamic support #2 postvoid residual of 100 ML's. #3 continue with Lasix 40 mg IV twice a day #4 strict ins and outs #5 avoid nephrotoxic agents and hypotensive episodes
[2021-02-13] MEDS ORDERED: Potassium Replacement Protocol 1 EACH MISC MISCELLANE PRN ×2 (08:59→15:08)
[2021-02-13] MEDS: CYANOCOBALAMIN 500 MCG TAB PO SCH (09:10)
[2021-02-13] MEDS: CHOLECALCIFEROL 25 MCG (1000 IU) TABLET PO SCH (09:10)
[2021-02-13] MEDS: ACYCLOVIR 200 MG CAP PO SCH ×2 (09:10→21:21)
[2021-02-13] MEDS: HEPARIN SODIUM,PORCINE/PF 5,000 UNIT/0.5 ML SYRINGE SQ SCH ×2 (09:11→21:21)
[2021-02-13] MEDS: SODIUM CHLORIDE 0.9% 1,000 ML IV SCH (09:14)
[2021-02-13] MEDS ORDERED: POTASSIUM CHLORIDE ER 20 MEQ TAB.ER PO SCH (10:00)
--- NOTE | 2021-02-13 11:20 | P.PN ---
Subjective Progress Note Date: 02/12/21 The pt is A status post bronchoscopy. He went into atrial fibrillation, but has reverted back into sinus rhythm. He continues to have shortness of breath, even with minimal exertion. He is denying significant cough or expectoration at this time. No history of any chest pain. No fevers or chills. Objective - Vital Signs Vital signs: Vital Signs Temp 98.5 F 02/13/21 08:00 Pulse 97 02/13/21 10:00 Resp 31 H 02/13/21 10:00 BP 140/55 02/13/21 10:00 Pulse Ox 99 02/13/21 10:00 Intake & Output 02/12/21 02/13/21 02/13/21 18:59 06:59 18:59 Intake Total 760 1200 140 Output Total 200 1000 350 Balance 560 200 -210 Weight 94.5 kg Intake: IV 60 1200 140 0.9 60 400 40 Dextrose 5% in Water 1, 800 100 000 ml @ 100 mls/hr IV . [id number] [facility] with Sodium Bicarb (1 Meq/ml) 150 ml Rx#:[id number] Intake, IV Titration 100 Amount Cefepime 2 gm In Sodium 100 Chloride 0.9% 100 ml @ 25 mls/hr IVPB Q8HR [facility] Rx# :[id number] Oral 600 Output: Urine 200 1000 350 Other: Voiding Method Toilet Urinal Urinal - Constitutional General appearance: Present: no acute distress - EENT Eyes: Present: EOMI ENT: Present: hearing grossly normal, normal oropharynx - Respiratory Respiratory: bilateral: CTA - Cardiovascular Rhythm: regular Heart sounds: normal: S1, S2 - Gastrointestinal General gastrointestinal: Present: normal bowel sounds, soft - Integumentary Integumentary: Present: normal - Neurologic Neurologic: Present: CNII-XII intact - Musculoskeletal Musculoskeletal: Present: generalized weakness, strength equal bilaterally - Psychiatric Psychiatric: Present: A&O x's 3, appropriate affect - Labs CBC & Chem 7: 02/13/21 04:34 02/13/21 04:34 Labs: Abnormal Lab Results - Last 24 Hours (Table) 02/12/21 02/12/21 02/13/21 Range/Units 07:01 17:10 04:34 WBC (3.8-10.6) k/uL RBC (4.30-5.90) m/uL Hgb (13.0-17.5) gm/dL Hct (39.0-53.0) % MCV (80.0-100.0) fL MCH (25.0-35.0) pg RDW (11.5-15.5) % Plt Count (150-450) k/uL Lymphocytes # (Manual) (1.0-4.8) k/uL Myelocytes # (Manual) (0) k/uL Nucleated RBCs (0-0) /100 WBC Sodium 132 L (137-145) mmol/L BUN 21 H (9-20) mg/dL Glucose 165 H (74-99) mg/dL POC Glucose (mg/dL) 138 H (75-99) mg/dL Calcium 7.7 L (8.4-10.2) mg/dL Total Bilirubin 1.5 H (0.2-1.3) mg/dL AST 12 L (17-59) U/L Total Protein 5.0 L (6.3-8.2) g/dL Albumin 2.8 L (3.5-5.0) g/dL Procalcitonin 0.97 H (0.02-0.09) ng/mL 02/13/21 Range/Units 04:34 WBC 3.0 L (3.8-10.6) k/uL RBC 1.97 L (4.30-5.90) m/uL Hgb 7.0 L (13.0-17.5) gm/dL Hct 20.7 L (39.0-53.0) % MCV 105.4 H (80.0-100.0) fL MCH 35.8 H (25.0-35.0) pg RDW 17.0 H (11.5-15.5) % Plt Count 61 L (150-450) k/uL Lymphocytes # (Manual) 0.69 L (1.0-4.8) k/uL Myelocytes # (Manual) 0.06 H (0) k/uL Nucleated RBCs 1 H (0-0) /100 WBC Sodium (137-145) mmol/L BUN (9-20) mg/dL Glucose (74-99) mg/dL POC Glucose (mg/dL) (75-99) mg/dL Calcium (8.4-10.2) mg/dL Total Bilirubin (0.2-1.3) mg/dL AST (17-59) U/L Total Protein (6.3-8.2) g/dL Albumin (3.5-5.0) g/dL Procalcitonin (0.02-0.09) ng/mL Microbiology - Last 24 Hours (Table) 02/11/21 13:45 Acid Fast Bacilli Smear - Final Bronchial Washings - Random Acid Fast Bacilli Culture - Preliminary 02/10/21 10:23 Blood Culture - Preliminary Blood No Growth after 48 hours 02/11/21 13:45 Gram Stain - Preliminary Bronchial Washings - Random Bronchial Washings Culture - Preliminary Assessment and Plan (1) Dyspnea Narrative/Plan: The patient continues to have bilateral lung infiltrates, with an infectious pneumonia the most likely differential. As stated to see, the clinical picture was not compatible with fluid overload. The patient did have some fluid overload recently for which he received Lasix. Lungs are quite clear to auscultation today. - The case was discussed in detail with ID. The patient is already covered with cefepime and vancomycin. Was also on acyclovir, and Bactrim for PCP prophylaxis. The patient is chronically immunocompromised because of underlying myeloma, myeloma treatment, including regular steroid use. - As the patient was not responding to broad-spectrum antibiotic coverage so far, bronchoscopy was performed. Cultures are pending at this time. We will expand coverage by adding voriconazole, as well as pentamidine for PCP. - Continue aggressive supportive care Current Visit: Yes Status: Acute Priority: High Code(s): R06.00 - DYSPNEA, UNSPECIFIED SNOMED Code(s): 074772950 (2) Acute kidney injury Narrative/Plan: Nephrology is following. Patient continues to improve with creatinine down into the 1.2-1.3 range. Continue to monitor. ? Discontinue Lasix whenever felt to be appropriate. We will defer to CCM and Nephrology Current Visit: Yes Status: Acute Code(s): N17.9 - ACUTE KIDNEY FAILURE, UNSPECIFIED SNOMED Code(s): 45555735 (3) Multiple myeloma Current Visit: Yes Status: Chronic Priority: High Code(s): C90.00 - MULTIPLE MYELOMA NOT HAVING ACHIEVED REMISSION SNOMED Code(s): 807900697 (4) Pancytopenia due to antineoplastic chemotherapy Narrative/Plan: Counts had shown progressive decrease, likely due to ongoing acute illness mainly. Pomalidomide is currently on hold to reduce any additional myelo suppressive effect. Continue to monitor and transfuse to keep hemoglobin greater than 7, and platelets greater than 10 Current Visit: Yes Status: Acute Code(s): D61.810 - ANTINEOPLASTIC CHEMOTHERAPY INDUCED PANCYTOPENIA; T45.1X5A - ADVERSE EFFECT OF ANTINEOPLASTIC AND IMMUNOSUP DRUGS, INIT SNOMED Code(s): 337546467197525
[2021-02-13] MEDS: HYDROcodone/APAP 10-325MG 1 EACH TAB PO PRN ×2 (12:25→21:21)
[2021-02-13] MEDS: VORICONAZOLE 200 MG in SODIUM CHLORIDE 0.9% 100 ML IVPB SCH (12:27)
[2021-02-13] MEDS: PENTAMIDINE IVPB SCH ×2 (12:27)
[2021-02-13] MEDS: DEXTROSE 5% IVPB SCH ×2 (12:27)
[2021-02-13] MEDS: WATER IVPB SCH ×2 (12:27)
--- NOTE | 2021-02-13 13:59 | P.PN ---
Subjective This is a pleasant 50 years old male with multiple medical problems including multiple myeloma presents with acute kidney injury secondary to hypotension and hypercalcemia and currently is been followed closely by nephrology team while continued on normal saline at 75 mL/h. Also hematology/oncology team following the patient status post chemotherapy for hypercalcemia and status post pamidronate today. Pulmonary team and ID team for bilateral pneumonia, there is abnormal CT but clinically complaining only from exertional dyspnea. No fever or coughing. Patient currently current with ceftriaxone and Zithromax. Also patient is on home medication of acyclovir and Bactrim. Patient also continued on dexamethasone Other than that he is hemodynamically stable. No more fever. He is on room air. He has mild pancytopenia. Creatinine 1.5, calcium elevated at 10.8. Ejection fraction is 55-60%. CT of the chest showed patchy ground glass interstitial infiltrates., On 02/0402/08/2021 Patient still with exertional dyspnea. Very occasional dry coughing. No chest pain. No other specific complaints. He remains on room air and vitals are stable. No more fever. Labs are not concerning, he has stable pancytopenia, calcium is back to normal at 9. Creatinine improved significantly to 1.1. He has some mild evidence of acidemia with low carbon dioxide and patient was started on some sodium bicarbonate drip by nephrology team today. He remains on ceftriaxone and Zithromax. Dexamethasone which is a home medication. IV fluid. Several consultants on the case including pulmonary, ID, nephrology and oncology/hematology. 02/09/2021 Patient clinically the same with exertional dyspnea. His still mildly tachycardic and febrile and rest of vitals are stable. He still has pancytopenia with WBC 1.5, hemoglobin 6.9 and a platelet 59. H ematology team on the case. Creatinine 1.0. Chest x-ray showing worsening bilateral infiltrates, coronavirus detected is negative. We have reordered procalcitonin and proBNP. Patient is on antibiotics with ceftriaxone and Zithromax, acyclovir and Bactrim. ID team and pulmonary team on the case. 02/10/2021 Patient still with dyspnea. He had a fever of 101.8 today. And his chest x-ray looks worse. Currently he is on ceftriaxone and Zithromax. He has pancytopenia and his hemoglobin dropped to 6.4. He is getting 1 unit of blood transfusion. Creatinine normal. Anion gap is normal carbon dioxide slightly low. He remains on Zithromax and ceftriaxone and dexamethasone and sodium bicarb. We will discuss with infectious disease team about his antibiotic management. 02/11/2021 Patient is more tachypneic today. He denies chest pain. No other specific complaints. His vitals little worse, he still has a fever of 101.7. He is saturating 93% on room air. He is tachycardic around 110. Blood pressure is 99/69. Remains pancytopenic with WBC is 2.2, hemoglobin 7 after 1 unit of blood transfusion and platelets 56. Creatinine remains stable. Calcium was low. His antibiotics were adjusted to cefepime and IV vancomycin. Remains on dexamethasone. IV fluids of sodium bicarb was stopped and switched to bicarb pedal and started on IV Lasix 40 mg twice daily. Also oncology on the case for chemotherapy. His procalcitonin is mildly worsened up to 0.34. Patient eroded by pulmonary team for bronchoscopy tomorrow 02/12/2021 Patient is continued to be dyspneic and multiple select unit. No chest pain or significant cough. He has exertional dyspnea and he needs help going to the [facility]. He is tachypneic at 26, blood pressure is low normal for the last few days which looks his stable, currently 93/56. He is tachycardic at 114. And had fever yesterday. His CBC looks his stable with WBC 3.1, hemoglobin is improved 7.9 and platelets stable at 57. Creatinine 1.1, went up to 1.[address] of the chest without contrast showing bilateral patchy ground glass infiltrate which is progressed since admission. However patient covid test was checked 2 days ago that was negative, Patient remains on cefepime and IV vancomycin, voriconazole is been added. 13 considering the bronchoscopy. He is on sodium bicarbonate pills, IV fluid was stopped. Continued on IV Lasix 40 mg twice daily. Also he is on dexamethasone. Prognosis remains guarded Also he developed short period of A. fib, currently converted to sinus rhythm. 02/13/2021 Patient moved to the ICU today. He is status post bronchoscopy with bronchoalveolar lavage. After that his tachypnea is significantly improved however still significantly tachypneic especially if he tries to talk or move. His condition remains critical despite partial improvement after the bronchoscopy. He remains febrile with 102.7 today. He is tachycardic and tachypneic. Blood pressure is borderline and he was started on normal saline at 50 mL per hour plus metoprolol 50 mg twice a day and Lasix 40 mg twice a day. Labs basically looks stable with little fluctuation. His WBC is 3 today, hemoglobin 7 and platelets 61 with hematology on the case. He has multiple cultures are pending, please refer to order set. Chest x-ray showing persistent bilateral infiltrate. Patient remains on broad-spectrum antibiotics with cefepime, IV vancomycin and voriconazole. Also he is on steroids Objective - Vital Signs Vital signs: Vital Signs Temp 98.7 F 02/13/21 12:00 Pulse 109 H 02/13/21 13:00 Resp 26 H 02/13/21 13:00 BP 117/62 02/13/21 13:00 Pulse Ox 94 L 02/13/21 13:00 Intake & Output 02/12/21 02/13/21 02/13/21 18:59 06:59 18:59 Intake Total 760 1200 200 Output Total 200 1000 450 Balance 560 200 -250 Weight 94.5 kg Intake: IV 60 1200 200 0.9 60 400 100 Dextrose 5% in Water 1, 800 100 000 ml @ 100 mls/hr IV . [id number] COLEMAN with Sodium Bicarb (1 Meq/ml) 150 ml Rx#:[id number] Intake, IV Titration 100 Amount Cefepime 2 gm In Sodium 100 Chloride 0.9% 100 ml @ 25 mls/hr IVPB Q8HR COLEMAN Rx# :[id number] Oral 600 Output: Urine 200 1000 450 Other: Voiding Method Toilet Urinal Urinal # Voids 1 - Exam GENERAL: The patient is alert and oriented x3, not in any acute distress. Well developed, well nourished. HEENT: Pupils are round and equally reacting to light. EOMI. No scleral icterus. No conjunctival pallor. Normocephalic, atraumatic. No pharyngeal erythema. No thyromegaly. CARDIOVASCULAR: S1 and S2 present. No murmurs, rubs, or gallops. PULMONARY: Chest is clear to auscultation, no wheezing or crackles. ABDOMEN: Soft, nontender, nondistended, normoactive bowel sounds. No palpable organomegaly. MUSCULOSKELETAL: No joint swelling or deformity. EXTREMITIES: No cyanosis, clubbing, or pedal edema. NEUROLOGICAL: Gross neurological examination did not reveal any focal deficits. SKIN: No rashes. no petechiae. - Labs CBC & Chem 7: 02/13/21 04:34 02/13/21 04:34 Labs: Abnormal Lab Results - Last 24 Hours (Table) 02/12/21 02/12/21 02/13/21 Range/Units 07:01 17:10 04:34 WBC (3.8-10.6) k/uL RBC (4.30-5.90) m/uL Hgb (13.0-17.5) gm/dL Hct (39.0-53.0) % MCV (80.0-100.0) fL MCH (25.0-35.0) pg RDW (11.5-15.5) % Plt Count (150-450) k/uL Lymphocytes # (Manual) (1.0-4.8) k/uL Myelocytes # (Manual) (0) k/uL Nucleated RBCs (0-0) /100 WBC Sodium 132 L (137-145) mmol/L BUN 21 H (9-20) mg/dL Glucose 165 H (74-99) mg/dL POC Glucose (mg/dL) 138 H (75-99) mg/dL Calcium 7.7 L (8.4-10.2) mg/dL Total Bilirubin 1.5 H (0.2-1.3) mg/dL AST 12 L (17-59) U/L Total Protein 5.0 L (6.3-8.2) g/dL Albumin 2.8 L (3.5-5.0) g/dL Procalcitonin 0.97 H (0.02-0.09) ng/mL 02/13/21 Range/Units 04:34 WBC 3.0 L (3.8-10.6) k/uL RBC 1.97 L (4.30-5.90) m/uL Hgb 7.0 L (13.0-17.5) gm/dL Hct 20.7 L (39.0-53.0) % MCV 105.4 H (80.0-100.0) fL MCH 35.8 H (25.0-35.0) pg RDW 17.0 H (11.5-15.5) % Plt Count 61 L (150-450) k/uL Lymphocytes # (Manual) 0.69 L (1.0-4.8) k/uL Myelocytes # (Manual) 0.06 H (0) k/uL Nucleated RBCs 1 H (0-0) /100 WBC Sodium (137-145) mmol/L BUN (9-20) mg/dL Glucose (74-99) mg/dL POC Glucose (mg/dL) (75-99) mg/dL Calcium (8.4-10.2) mg/dL Total Bilirubin (0.2-1.3) mg/dL AST (17-59) U/L Total Protein (6.3-8.2) g/dL Albumin (3.5-5.0) g/dL Procalcitonin (0.02-0.09) ng/mL Microbiology - Last 24 Hours (Table) 02/10/21 10:23 Blood Culture - Preliminary Blood No Growth after 72 hours 02/11/21 13:45 Gram Stain - Final Bronchial Washings - Random Bronchial Washings Culture - Final 02/11/21 13:45 Acid Fast Bacilli Smear - Final Bronchial Washings - Random Acid Fast Bacilli Culture - Preliminary Assessment and Plan Assessment: Bilateral interstitial pneumonia. With bilateral groundglass and interstitial infiltrates. Acute kidney injury secondary to hypercalcemia and hypotension, improving Multiple myeloma on chemotherapy short period of A. fib, currently converted to sinus rhythm Hypercalcemia and hyperparathyroidism status post pamidronate Ischemia Pancytopenia secondary to multiple myeloma and medication Plan: This is a pleasant 50 years old male who presents with pneumonia, PAUL and hypercalcemia and multiple myeloma Continue with antibiotics. Infectious disease team, currently on cefepime and I V vancomycin. Voriconazole added. ID and pulmonary team on the case.We will follow-up with their recommendation regarding treatment Bronchoscopy in the a.m. Discontinue hydration, continue with IV Lasix. nephrology team on the case Continue chemotherapy per hematology/oncology team will follow the patient closely Labs and medication were reviewed.. Continue same treatment. Continue with symptomatic treatment. Resume home medication. Monitor lytes and vitals. DVT and GI prophylaxis. Further recommendationsas per clinical course of the patient DVT prophylaxis: Subcutaneous heparin GI Prophylaxis: ppi Prognosis is guarded
[2021-02-13] MEDS: POTASSIUM CHLORIDE ER 20 MEQ TAB.ER PO SCH ×2 (15:37→17:18)
--- NOTE | 2021-02-13 17:16 | PN ---
PROGRESS NOTE DATE OF SERVICE: 02/13/2021 REASON FOR FOLLOWUP: Pneumonia. INTERVAL HISTORY: The patient did spike another fever this morning, 102.7. The patient is afebrile since then. Still complaining of shortness of breath. Denies any chest pain. Did have a cough, not bringing up any sputum. No vomiting. No abdominal pain or diarrhea. PHYSICAL EXAMINATION: Blood pressure 122/74 with a pulse of 102, temperature 98.4. He is 100% on 3 L nasal cannula. General description is a middle-aged male up in the bed in no distress. Respiratory system: Unlabored breathing, decreased intensity of breath sounds. No wheeze. Heart S1, S2. Regular rate and rhythm. Abdomen soft, no tenderness. LAB: Hemoglobin 7, white count 3.0, creatinine 1.21. DIAGNOSTIC IMPRESSION AND PLAN: Patient with a fever concerning for pneumonia, atypical, possible PCP versus ( ). Bronch cultures are currently pending. Patient is covered with voriconazole, pentamidine and cefepime, to continue, adjusting it further based on culture report. Continue supportive care. MMODL / IJN: [id number] /
[2021-02-13] MEDS: ZOLPIDEM 5 MG TAB PO SCH (21:22)
--- NOTE | 2021-02-13 22:07 | P.PN ---
Subjective Progress Note Date: 02/13/21 The patient was transferred to the ICU because of his ongoing secretions. He also had another episode of atrial fibrillation but reverted back to sinus rhythm. He continues to deny any cough or significant expectoration today. Objective - Vital Signs Vital signs: Vital Signs Temp 98.4 F 02/13/21 16:00 Pulse 102 H 02/13/21 19:00 Resp 34 H 02/13/21 19:00 BP 111/58 02/13/21 19:00 Pulse Ox 96 02/13/21 19:00 Intake & Output 02/13/21 02/13/21 02/14/21 06:59 18:59 06:59 Intake Total 1200 300 20 Output Total 1000 850 Balance 200 -550 20 Weight 94.5 kg Intake: IV 1200 300 20 0.9 400 200 20 Dextrose 5% in Water 1, 800 100 000 ml @ 100 mls/hr IV . [id number] COLEMAN with Sodium Bicarb (1 Meq/ml) 150 ml Rx#:[id number] Output: Urine 1000 850 Other: Voiding Method Urinal Urinal # Voids 1 - Constitutional General appearance: Present: mild distress - EENT Eyes: Present: EOMI ENT: Present: hearing grossly normal, normal oropharynx - Respiratory Respiratory: right: rales - Cardiovascular Rhythm: regular Heart sounds: normal: S1, S2 - Gastrointestinal General gastrointestinal: Present: soft - Integumentary Integumentary: Present: normal - Neurologic Neurologic: Present: CNII-XII intact - Musculoskeletal Musculoskeletal: Present: generalized weakness, strength equal bilaterally - Psychiatric Psychiatric: Present: A&O x's 3 - Labs CBC & Chem 7: 02/13/21 04:34 02/13/21 17:39 Labs: Abnormal Lab Results - Last 24 Hours (Table) 02/12/21 02/13/21 02/13/21 Range/Units 07:01 04:34 04:34 WBC 3.0 L (3.8-10.6) k/uL RBC 1.97 L (4.30-5.90) m/uL Hgb 7.0 L (13.0-17.5) gm/dL Hct 20.7 L (39.0-53.0) % MCV 105.4 H (80.0-100.0) fL MCH 35.8 H (25.0-35.0) pg RDW 17.0 H (11.5-15.5) % Plt Count 61 L (150-450) k/uL Lymphocytes # (Manual) 0.69 L (1.0-4.8) k/uL Myelocytes # (Manual) 0.06 H (0) k/uL Nucleated RBCs 1 H (0-0) /100 WBC Sodium 132 L (137-145) mmol/L BUN 21 H (9-20) mg/dL Glucose 165 H (74-99) mg/dL Calcium 7.7 L (8.4-10.2) mg/dL Total Bilirubin 1.5 H (0.2-1.3) mg/dL AST 12 L (17-59) U/L Total Protein 5.0 L (6.3-8.2) g/dL Albumin 2.8 L (3.5-5.0) g/dL Procalcitonin 0.97 H (0.02-0.09) ng/mL Microbiology - Last 24 Hours (Table) 02/10/21 10:23 Blood Culture - Preliminary Blood No Growth after 72 hours 02/11/21 13:45 Gram Stain - Final Bronchial Washings - Random Bronchial Washings Culture - Final 02/11/21 13:45 Acid Fast Bacilli Smear - Final Bronchial Washings - Random Acid Fast Bacilli Culture - Preliminary Assessment and Plan (1) Dyspnea Narrative/Plan: Patient's respiratory status continues to be tenuous, though he is able to be maintained at this time it oxygen supplementation by nasal cannula. Results are bronchoscopy are pending. Case was discussed with pulmonary medicine. They were also in agreement that an infectious process appears to be most likely. It was discussed that lymphangitic spread for multiple myeloma is very unlikely. As noted before, the patient's treatment regimen is not usually associated with drug-induced pneumonitis either. - Therefore the patient will be continued on broad-spectrum antibiotic coverage, including for fungal and PCP. Continue aggressive supportive measures. - Above was also discussed in detail with the patient and his family, their questions answered Current Visit: Yes Status: Acute Priority: High Code(s): R06.00 - DYSPNEA, UNSPECIFIED SNOMED Code(s): 041402699 (2) Acute kidney injury Narrative/Plan: This continues to improve, with creatinine down to 1.21. on diuresis recently for mild fluid overload related to IV hydration, transfusion. Defer to CCM and Nephrology for diuretic management Current Visit: Yes Status: Acute Code(s): N17.9 - ACUTE KIDNEY FAILURE, UNSPECIFIED SNOMED Code(s): 69209939 (3) Multiple myeloma Current Visit: Yes Status: Chronic Priority: High Code(s): C90.00 - MULTIPLE MYELOMA NOT HAVING ACHIEVED REMISSION SNOMED Code(s): 427043394 (4) Pancytopenia due to antineoplastic chemotherapy Narrative/Plan: D/W pt and family. Main component likely due to acute illness. Pomalidomide on hold to reduce stress on bone marrow. Continue to monitor, and transfuse to keep Hgb > 7, and plt > 10 Current Visit: Yes Status: Acute Code(s): D61.810 - ANTINEOPLASTIC CHEMOTHERAPY INDUCED PANCYTOPENIA; T45.1X5A - ADVERSE EFFECT OF ANTINEOPLASTIC A ND IMMUNOSUP DRUGS, INIT SNOMED Code(s): 963262075760950
[2021-02-13] MEDS: MIRTAZAPINE 15 MG TAB PO SCH (22:09)
[2021-02-13] MEDS: ESCITALOPRAM 20 MG TAB PO SCH (22:09)
[2021-02-14] MEDS: VORICONAZOLE 200 MG in SODIUM CHLORIDE 0.9% 100 ML IVPB SCH ×3 (00:21→23:29)
[2021-02-14] MEDS: CEFEPIME 2 GM in SODIUM CHLORIDE 0.9% 100 ML IVPB SCH ×4 (00:21→23:28)
[2021-02-14] MEDS: SODIUM CHLORIDE 0.9% 1,000 ML IV SCH (05:10)
[2021-02-14] MEDS: PANTOPRAZOLE 40 MG TABLET PO SCH (06:34)
[2021-02-14] MEDS: FUROSEMIDE 10 MG/ML 4 ML VIAL IV SCH (06:34)
[2021-02-14] MEDS: MIDODRINE 5 MG TAB PO SCH ×3 (06:35→17:24)
--- NOTE | 2021-02-14 08:26 | XR ---
EXAMINATION TYPE: XR chest 1V portable DATE OF EXAM: 02/14/2021 COMPARISON: Chest x-ray 02/13/2021 HISTORY: Dyspnea TECHNIQUE: Single frontal view of the chest is obtained. FINDINGS: There is no significant interval change. Bilateral airspace disease is again seen. There i s no evident pneumothorax or pleural effusion. Cardiac mediastinal silhouette is stable. IMPRESSION: Stable exam, correlate for pneumonia
[2021-02-14] MEDS: dexAMETHasone 4 MG TAB PO SCH (08:54)
[2021-02-14] MEDS: METOPROLOL TARTRATE 25 MG TAB PO SCH ×3 (08:54→20:47)
[2021-02-14 08:55] LABS: Anisocytosis Slight; HCT 21.4 % (39.0-53.0); HGB 7.2 gm/dL (13.0-17.5); MCH 36.1 pg (25.0-35.0); MCHC 33.6 g/dL (31.0-37.0); MCV 107.4 fL (80.0-100.0); Macrocytosis Marked; Mean Platelet Volume 10.6; RDW 17.6 % (11.5-15.5)
[2021-02-14] MEDS: HEPARIN SODIUM,PORCINE/PF 5,000 UNIT/0.5 ML SYRINGE SQ SCH ×2 (08:55→20:47)
[2021-02-14] MEDS: ACYCLOVIR 200 MG CAP PO SCH ×2 (08:55→20:48)
[2021-02-14] MEDS: CHOLECALCIFEROL 25 MCG (1000 IU) TABLET PO SCH (08:55)
[2021-02-14] MEDS: CYANOCOBALAMIN 500 MCG TAB PO SCH (08:55)
[2021-02-14 08:57] LABS: Platelet Count 76 k/uL (150-450)
[2021-02-14] MEDS: HYDROcodone/APAP 10-325MG 1 EACH TAB PO PRN ×2 (08:57→20:47)
[2021-02-14 09:10] LABS: Calcium 7.7 mg/dL (8.4-10.2); Potassium 4.2 mmol/L (3.5-5.1)
--- NOTE | 2021-02-14 09:54 | PN ---
PROGRESS NOTE Mr. Arthur is a 50-year-old male with known history of multiple myeloma who presented with worsening dyspnea and evidence of pneumonia. He tested negative for COVID infection. He had episode of atrial fibrillation. He is back in sinus mechanism with episode of sinus tachycardia. He continues to be dyspneic. He denies any chest discomfort or dizziness. His blood pressure has been relatively stable. He had evidence of acute kidney injury. He continues to be at this time on acyclovir, dexamethasone, Lexapro, Lasix 40 mg IV q.12 hours, metoprolol tartrate 25 mg three times a day, midodrine 5 mg three times a day. PHYSICAL EXAMINATION: Blood pressure is running in the 110s to 120s with a heart rate in the low 100s, temperature 99.8. LUNGS: No wheezes or rales. HEART: Regular rate and rhythm. S1, S2. No S3, with a systolic murmur. No diastolic murmur. ABDOMEN: Soft, nontender. Positive bowel sounds. EXTREMITIES: No edema. LAB DATA: Lab data from yesterday revealed a hemoglobin of 7 and his platelet count was 61,000. His creatinine today is 1.66. IMPRESSION: 1. Respiratory failure in an immunocompromised patient. Patient has tested for COVID- 19. He is being treated with antibiotics. He continues to be on steroids. 2. Paroxysmal atrial fibrillation. Back in normal sinus rhythm. 3. Multiple myeloma with progression. 4. Acute renal injury. 5. Anemia and thrombocytopenia related to his multiple myeloma. 6. Persistent sinus tachycardia. RECOMMENDATIONS: From the cardiac standpoint, will continue present therapy, follow his renal function. Patient is not a candidate for anticoagulation in view of his anemia and thrombocytopenia. Unfortunately the prognosis is guarded. MMODL / IJN: [id number] /
--- NOTE | 2021-02-14 10:46 | P.PN ---
Subjective Patient is seen in follow-up for acute kidney injury. Renal function worse from diuresis. He is maintained on IV Lasix 40 mg twice daily. Blood pressure stable. On 3 L nasal cannula. Oral intake fair. Vital signs are stable. General: The patient appeared well nourished and normally developed. HEENT: Head exam is unremarkable. On Nasal cannula. LUNGS: Breath sounds decreased. HEART: Irregular rate and rhythm. ABDOMEN: Soft, no distention. EXTREMITITES: No edema. Objective - Vital Signs Vital signs: Vital Signs Temp 99.4 F 02/14/21 08:00 Pulse 90 02/14/21 10:00 Resp 28 H 02/14/21 10:00 BP 107/54 02/14/21 10:00 Pulse Ox 95 02/14/21 10:00 Intake & Output 02/13/21 02/14/21 02/14/21 18:59 06:59 18:59 Intake Total 300 840 225 Output Total 850 500 450 Balance -550 340 -225 Weight 95.9 kg Intake: IV 300 640 125 0.9 200 40 Dextrose 5% in Water 1, 100 000 ml @ 100 mls/hr IV . [id number] COLEMAN with Sodium Bicarb (1 Meq/ml) 150 ml Rx#:[id number] Sodium Chloride 0.9% 1, 600 125 000 ml @ 50 mls/hr IV . Q20H [facility]LEMAN Rx#:[id number] Oral 200 100 Output: Urine 850 500 450 Other: Voiding Method Urinal Urinal Urinal # Voids 1 1 - Labs CBC & Chem 7: 02/14/21 04:37 02/14/21 04:37 Labs: Abnormal Lab Results - Last 24 Hours (Table) 02/14/21 02/14/21 Range/Units 04:37 04:37 WBC 3.3 L (3.8-10.6) k/uL RBC 2.00 L (4.30-5.90) m/uL Hgb 7.2 L (13.0-17.5) gm/dL Hct 21.4 L (39.0-53.0) % MCV 107.4 H (80.0-100.0) fL MCH 36.1 H (25.0-35.0) pg RDW 17.6 H (11.5-15.5) % Macrocytosis Marked A Sodium 134 L (137-145) mmol/L Carbon Dioxide 20 L (22-30) mmol/L BUN 30 H (9-20) mg/dL Creatinine 1.66 H (0.66-1.25) mg/dL Glucose 137 H (74-99) mg/dL Calcium 7.7 L (8.4-10.2) mg/dL Microbiology - Last 24 Hours (Table) 02/10/21 10:23 Blood Culture - Preliminary Blood No Growth after 72 hours 02/11/21 13:45 Gram Stain - Final Bronchial Washings - Random Bronchial Washings Culture - Final Assessment and Plan Plan: Assessment: 1. Acute kidney injury secondary to ATN secondary to hypotension and diuresis. Creatinine 1.66 today. UA benign. 2. Pneumonia maintained on antibiotics as well as anti-fungal. Infectious disease following. 3. Volume overload. Improved with diuresis. 4. Metabolic acidosis secondary to acute kidney injury. 5. Hypervolemic hyponatremia. Better. 6. History of multiple myeloma. Oncology following. Plan: Decrease Lasix to 40 mg IV once daily. Avoid nephrotoxins. Continue to monitor renal function and urine output. Monitor bicarb.
[2021-02-14 10:55] LABS: Band Neutrophils % 2 %; Myelocytes % 3 %; Neutrophils % (M) 47 %; Nucleated Red Blood Cells 2 /100 WBC (0-0); Total Cells Counted 200
[2021-02-14 10:56] LABS: Eosinophils # (M) 0.19 k/uL (0-0.7); Lymphocytes # (M) 1.06 k/uL (1.0-4.8); Monocytes # (M) 0.35 k/uL (0-1.0); WBC 3.2 k/uL (3.8-10.6)
[2021-02-14 10:57] LABS: Polychromasia Present
[2021-02-14 10:58] LABS: Poikilocytosis (M) Present
[2021-02-14 11:25] LABS: Glucose,Whole Blood 156 mg/dL (75-99)
[2021-02-14] MEDS: WATER IVPB SCH ×2 (11:30)
[2021-02-14] MEDS: DEXTROSE 5% IVPB SCH ×2 (11:30)
[2021-02-14] MEDS: PENTAMIDINE IVPB SCH ×2 (11:30)
--- NOTE | 2021-02-14 13:37 | P.PN ---
Subjective Progress Note Date: 02/14/21 Principal diagnosis: Acute hypoxic respiratory failure secondary to community-acquired pneumonia, patient is immunocompromised, history of multiple myeloma. And recently on chemotherapy. On 02/13/2021, the patient is being seen for a follow-up in the intensive care unit. The patient a chest x-ray to the ICU as the patient became progressively more short of breath and hypoxic. A computed tomography scan of the chest was conducted and showed worsening of the bilateral pulmonary pulses were noted earlier. Specifically, the CAT scan of the chest shows bilateral patchy grou ndglass pulmonary infiltrates that had progressed significantly. Note that this patient has been checked for COVID-19 on multiple occasions and came back all negative. The same time, bronchoscopy and bronchial lavage was done and the results are still pending for now. Meanwhile, we broadened antibiotic coverage because of interval worsening. The patient was started on voriconazole. The patient was also started on pentamadine regarding the possibility of an underlying PCP infection despite the fact that the patient was receiving Bactrim for PCP prophylaxis. He is still having episodes of fever. White cell count is at 3.0. Hemoglobin is at 7. He is less tachycardic compared to yesterday. His current antibiotic or antimicrobial coverage includes IV acyclovir, IV cefepime, voriconazole, IV pentamadine and vancomycin. His vancomycin trough is at 17.4. All of the cultures are negative thus far. Hemodynamically he is stable. His communicating. He is still at the liters of oxygen by nasal cannula and his pulse ox is currently at 97%. He remains on Decadron 28 mg by mouthq month, and the patient is also on bicarb infusion at the rate of 100 mL an hour. Repeat bicarb level is still pending for now as electrodes are still pending. Meanwhile, the patient is also being diuresis with Lasix 40 mg IV every 12 hours as the patient has significant third spacing and edema in the upper and lower extremities. The neck fluid balance has been +1.9 L over the past 24 hours. Patient was reevaluated today on 02/14/2021, remains in the ICU, on 3 L nasal cannula, with O2 saturations 95% on 3 L. IV fluids at KVO, patient is complaining of shortness of breath, he had recent bronchoscopy and BAL, cultures are pending, patient remains on multiple broad-spectrum antibiotics, he is also on antifungal therapy as well as anti-PCP therapy. So far the cultures from the BAL are negative. Chest x-ray continues to show worsening bilateral infiltrates. Labs today showed WBC count of 3.2 hemoglobin 7.2 platelets are 76,000. Electrolytes are normal BUN is 30 creatinine 1.66. Patient remains on acyclovir, cefepime, Gammagard, midodrine, pentamadine, Vfend, off vancomycin. His overall pulmonary status is marginal at best. Objective - Vital Signs Vital signs: Vital Signs Temp 98.2 F 02/14/21 12:00 Pulse 90 02/14/21 12:00 Resp 26 H 02/14/21 12:00 BP 135/61 02/14/21 12:00 Pulse Ox 94 L 02/14/21 12:00 Intake & Output 02/13/21 02/14/21 02/14/21 18:59 06:59 18:59 Intake Total 300 840 625 Output Total 850 500 450 Balance -550 340 175 Weight 95.9 kg Intake: IV 300 640 525 0.9 200 40 Dextrose 5% in Water 1, 100 000 ml @ 100 mls/hr IV . [id number] [facility] with Sodium Bicarb (1 Meq/ml) 150 ml Rx#:[id number] Pentamidine 300 mg In 250 Dextrose 5% in Water 250 ml @ 125 mls/hr IVPB Q24H [facility] Rx#:[id number] Sodium Chloride 0.9% 1, 600 175 000 ml @ 50 mls/hr IV . Q20H [facility] Rx#:[id number] Voriconazole 200 mg In 100 Sodium Chloride 0.9% 100 ml @ 125 mls/hr IVPB Q12H [facility] Rx#:[id number] Oral 200 100 Output: Urine 850 500 450 Other: Voiding Method Urinal Urinal Urinal # Voids 1 1 - Exam GENERAL EXAM: 50-year-old white male pleasant, on 3 L nasal cannula, noted to be slightly dyspneic. HEAD: Normocephalic/atraumatic. HEENT: PERRLA, EOMI, nonicteric, no neck masses, no JVD, no stridor. CHEST: No chest wall deformity. Symmetrical expansion. LUNGS: Crackles noted bilaterally, no rhonchi and no wheezes. CVS: Distant S1 and S2, no S3 gallop. No murmur. ABDOMEN: Soft, nontender. No hepatosplenomegaly, normal bowel sounds, no guarding or rigidity. EXTREMITIES: No clubbing edema or cyanosis. MUSCULOSKELETAL: Muscle strength and tone normal. SKIN: No rashes CENTRAL NERVOUS SYSTEM: Alert and oriented 3 in no gross focal deficits. PSYCHIATRIC: Normal mood, affect and normal mental status examination. - Labs CBC & Chem 7: 02/14/21 04:37 02/14/21 04:37 Labs: Abnormal Lab Results - Last 24 Hours (Table) 02/14/21 02/14/21 02/14/21 Range/Units 04:37 04:37 11:23 WBC 3.2 L (3.8-10.6) k/uL RBC 2.00 L (4.30-5.90) m/uL Hgb 7.2 L (13.0-17.5) gm/dL Hct 21.4 L (39.0-53.0) % MCV 107.4 H (80.0-100.0) fL MCH 36.1 H (25.0-35.0) pg RDW 17.6 H (11.5-15.5) % Plt Count 76 L (150-450) k/uL Myelocytes # (Manual) 0.10 H (0) k/uL Nucleated RBCs 2 H (0-0) /100 WBC Macrocytosis Marked A Sodium 134 L (137-145) mmol/L Carbon Dioxide 20 L (22-30) mmol/L BUN 30 H (9-20) mg/dL Creatinine 1.66 H (0.66-1.25) mg/dL Glucose 137 H (74-99) mg/dL POC Glucose (mg/dL) 156 H (75-99) mg/dL Calcium 7.7 L (8.4-10.2) mg/dL Microbiology - Last 24 Hours (Table) 02/10/21 10:23 Blood Culture - Preliminary Blood No Growth after 96 hours 02/11/21 13:45 Gram Stain - Final Bronchial Washings - Random Bronchial Washings Culture - Final Assessment and Plan Assessment: Impression: Acute hypoxic respiratory failure secondary to pneumonia in a patient who is immunocompromised, pneumonia could be gram-negative pneumonia could be fungal in nature, or could even be PCP related pneumonia. Chemotherapy induced pancytopenia History of multiple myeloma with recent progression Acute kidney injury Possible tumor lysis syndrome Hypercalcemia secondary to multiple myeloma. Chronic anemia Benign essential hypertension History of depression. Recommendation: Continue to monitor in the ICU. Continue cefepime, acyclovir, pentamadine, and voriconazole. Awaiting final BAL cultures. So far nondiagnostic. Continue Gammagard. Patient is being closely followed by oncology/hematology. Continue to monitor renal function. Monitor daily electrolytes and labs. Chest x-ray was reviewed, still shows bilateral infiltrates. Overall prognosis remains critical. Critical care time is over 30 minutes. Time with Patient: Greater than 30
[2021-02-14] MEDS ORDERED: IMMUNE GLOBULIN (GAMMAGARD) 20 GM in EMPTY BAG 1 BAG IV ONE (14:00)
--- NOTE | 2021-02-14 15:46 | P.PN ---
Subjective Progress Note Date: 02/14/21 Principal diagnosis: Dyspnea, MM In f/u pt reports he had fever early AM 02/13, he reports stable breathing- extreme SOB with minimal activity, energy levels are very poor, he has had blood transfusion, CBC is fairly stable today. Objective - Vital Signs Vital signs: Vital Signs Temp 98.2 F 02/14/21 12:00 Pulse 90 02/14/21 12:00 Resp 26 H 02/14/21 12:00 BP 135/61 02/14/21 12:00 Pulse Ox 94 L 02/14/21 12:00 Intake & Output 02/13/21 02/14/21 02/14/21 18:59 06:59 18:59 Intake Total 300 840 625 Output Total 850 500 450 Balance -550 340 175 Weight 95.9 kg Intake: IV 300 640 525 0.9 200 40 Dextrose 5% in Water 1, 100 000 ml @ 100 mls/hr IV . [id number] [facility] with Sodium Bicarb (1 Meq/ml) 150 ml Rx#:[id number] Pentamidine 300 mg In 250 Dextrose 5% in Water 250 ml @ 125 mls/hr IVPB Q24H [facility] Rx#:[id number] Sodium Chloride 0.9% 1, 600 175 000 ml @ 50 mls/hr IV . Q20H [facility] Rx#:[id number] Voriconazole 200 mg In 100 Sodium Chloride 0.9% 100 ml @ 125 mls/hr IVPB Q12H [facility] Rx#:[id number] Oral 200 100 Output: Urine 850 500 450 Other: Voiding Method Urinal Urinal Urinal # Voids 1 1 - Constitutional General appearance: Present: average body habitus, cooperative, mild distress - EENT Eyes: Present: anicteric sclerae, EOMI ENT: Present: hearing grossly normal - Neck Details: end expiratory wheeze at sternal notch - Respiratory Details: diminished throughout, RLL near absent breath sounds, shallow respirations, incr eased rate - Cardiovascular Rhythm: regular Heart sounds: normal: S1, S2 Abnormal Heart Sounds: Absent: systolic murmur, diastolic murmur, rub, S3 Gallop, S4 Gallop, click, other - Peripheral edema leg Peripheral Edema: right: Trace (non-pitting) - Gastrointestinal General gastrointestinal: Present: distended, normal bowel sounds, soft - Integumentary Integumentary: Present: pale - Neurologic Neurologic: Present: CNII-XII intact - Musculoskeletal Musculoskeletal: Present: generalized weakness, strength equal bilaterally - Psychiatric Psychiatric: Present: A&O x's 3, appropriate affect, intact judgment & insight - Labs CBC & Chem 7: 02/14/21 04:37 02/14/21 04:37 Labs: Abnormal Lab Results - Last 24 Hours (Table) 02/14/21 02/14/21 02/14/21 Range/Units 04:37 04:37 11:23 WBC 3.2 L (3.8-10.6) k/uL RBC 2.00 L (4.30-5.90) m/uL Hgb 7.2 L (13.0-17.5) gm/dL Hct 21.4 L (39.0-53.0) % MCV 107.4 H (80.0-100.0) fL MCH 36.1 H (25.0-35.0) pg RDW 17.6 H (11.5-15.5) % Plt Count 76 L (150-450) k/uL Myelocytes # (Manual) 0.10 H (0) k/uL Nucleated RBCs 2 H (0-0) /100 WBC Macrocytosis Marked A Sodium 134 L (137-145) mmol/L Carbon Dioxide 20 L (22-30) mmol/L BUN 30 H (9-20) mg/dL Creatinine 1.66 H (0.66-1.25) mg/dL Glucose 137 H (74-99) mg/dL POC Glucose (mg/dL) 156 H (75-99) mg/dL Calcium 7.7 L (8.4-10.2) mg/dL Microbiology - Last 24 Hours (Table) 02/10/21 10:23 Blood Culture - Preliminary Blood No Growth after 96 hours 02/11/21 13:45 Gram Stain - Final Bronchial Washings - Random Bronchial Washings Culture - Final - Imaging and Cardiology Chest x-ray: report reviewed Assessment and Plan (1) 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 IgG 151. Pt having fevers, no cultures have come back positive, he remains on broad spectrum abx, antiviral and antifungal. Discussed case with PharmD. Adjusted ideal body weight dose of IVIG ordered, divide dose for dose today and tomorrow. Current Visit: Yes Status: Acute Priority: High Code(s): D80.1 - NONFAMILIAL HYPOGAMMAGLOBULINEMIA; C90.00 - MULTIPLE MYELOMA NOT HAVING ACHIEVED REMISSION SNOMED Code(s): 43941572665445700 (2) Acute kidney injury Narrative/Plan: More likely due to dehydration rather then myeloma since renal function improved initially with hydration, renal function slightly worse today. Nephrology consulted and following. BUN, Cr 30/1.66 today. Current Visit: Yes Status: Acute Code(s): N17.9 - ACUTE KIDNEY FAILURE, UNSPECIFIED SNOMED Code(s): 52112785 (3) Dyspnea Narrative/Plan: CXR done today, report reads stable exam compared to yesterday. Pulmonary has performed bronch with washings, results are coming in, at this time no infectious process reported. Current Visit: Yes Status: Acute Priority: High Code(s): R06.00 - DYSPNEA, UNSPECIFIED SNOMED Code(s): 221433445 (4) Atelectasis of both lungs Narrative/Plan: Concern for atypical infection in immuno-compromised pt, multiple lines of treatment and myeloma. Pt resp status is not improved very much from presentation. Awaiting results of bronch Current Visit: No Status: Acute Code(s): J98.11 - ATELECTASIS SNOMED Code(s): 21610052 (5) Hypercalcemia Narrative/Plan: 2/2 myeloma/malignancy. Pt received 60mg of aredia, Ca++ 7.7 today. Current Visit: Yes Status: Resolved Priority: High Code(s): E83.52 - HYPERCALCEMIA SNOMED Code(s): 05365133 (6) [place] light chain myeloma Narrative/Plan: Just initiated on new regimen 2 weeks ago. [place] light chains elevated but, regimen started about 3 weeks after last [place] light chain level. Holding pomalyst due to resp symptoms and fever. Dr. Monzon did discuss case with [facility] in [place], pt is being considered for CAR-T treatment. Current Visit: Yes Status: Chronic Priority: High Code(s): C90.00 - MULTIPLE MYELOMA NOT HAVING ACHIEVED REMISSION SNOMED Code(s): 314599579
[2021-02-14] MEDS: ZOLPIDEM 5 MG TAB PO SCH (20:47)
[2021-02-14] MEDS: ESCITALOPRAM 20 MG TAB PO SCH (20:47)
[2021-02-14] MEDS: MIRTAZAPINE 15 MG TAB PO SCH (20:49)
--- NOTE | 2021-02-14 23:47 | PN ---
PROGRESS NOTE DATE OF SERVICE: 02/14/2021 REASON FOR FOLLOWUP: Pneumonia. INTERVAL HISTORY: The patient is afebrile. The patient is still complaining of shortness of breath. He did have a cough with minimal sputum. No hemoptysis. No nausea, no vomiting. No abdominal pain or diarrhea. PHYSICAL EXAMINATION: Blood pressure 115/65, pulse of 82, temperature 97.9. He is 96% on 3 L nasal cannula. General description is a middle-aged male lying in bed in no distress. RESPIRATORY SYSTEM: Unlabored breathing. Coarse breath sounds bilaterally. No wheeze. HEART: S1, S2. Regular rate and rhythm. ABDOMEN: Soft. No tenderness. EXTREMITIES: No edema of the feet. LABS: Hemoglobin 7.8, white count 3.2, creatinine 1.66. Culture remains negative so far. DIAGNOSTIC IMPRESSION AND PLAN: Patient with shortness of breath and cough in this patient who did have an interstitial pulmonary infiltrate, status post bronchoscopy. Cultures remain negative. Patient is covered with voriconazole, pentamidine to continue while monitoring his clinical course closely. Continue supportive care. MMODL / IJN: [id number] /
[2021-02-15 05:40] LABS: Calcium 7.7 mg/dL (8.4-10.2); Potassium 4.7 mmol/L (3.5-5.1)
[2021-02-15 05:47] LABS: Anisocytosis Slight; HCT 21.6 % (39.0-53.0); HGB 7.1 gm/dL (13.0-17.5); MCH 36.5 pg (25.0-35.0); MCHC 32.9 g/dL (31.0-37.0); Macrocytosis Marked; Mean Platelet Volume 9.3; RBC 1.95 m/uL (4.30-5.90); RDW 17.9 % (11.5-15.5)
[2021-02-15] MEDS: CEFEPIME 2 GM in SODIUM CHLORIDE 0.9% 100 ML IVPB SCH ×2 (07:15→20:26)
[2021-02-15] MEDS: PANTOPRAZOLE 40 MG TABLET PO SCH (07:15)
[2021-02-15] MEDS: MIDODRINE 5 MG TAB PO SCH ×3 (07:16→19:05)
[2021-02-15] MEDS ORDERED: FUROSEMIDE 10 MG/ML 4 ML VIAL IV SCH (09:00)
[2021-02-15] MEDS: ACYCLOVIR 200 MG CAP PO SCH ×2 (09:34→20:48)
[2021-02-15] MEDS: METOPROLOL TARTRATE 25 MG TAB PO SCH ×3 (09:35→20:26)
[2021-02-15] MEDS: CHOLECALCIFEROL 25 MCG (1000 IU) TABLET PO SCH (09:35)
[2021-02-15] MEDS: CYANOCOBALAMIN 500 MCG TAB PO SCH (09:35)
[2021-02-15] MEDS: HEPARIN SODIUM,PORCINE/PF 5,000 UNIT/0.5 ML SYRINGE SQ SCH ×2 (09:35→20:26)
--- NOTE | 2021-02-15 09:46 | XR ---
EXAMINATION TYPE: XR chest 1V portable DATE OF EXAM: 02/15/2021 COMPARISON: Chest x-ray 02/14/2021 HISTORY: Shortness of breath, pneumonia TECHNIQUE: Single frontal view of the chest is obtained. FINDINGS: Bilateral airspace disease is again noted. No evident pneumothorax or pleural effusion. Ca rdiac mediastinal silhouette is stable, heart is enlarged. Bones are unchanged. There are overlying a rtifacts. IMPRESSION: Correlate for pneumonia. Cardiomegaly is borderline.
--- NOTE | 2021-02-15 10:11 | P.PN ---
Subjective Progress Note Date: 02/15/21 Principal diagnosis: Acute hypoxic respiratory failure secondary to community-acquired pneumonia, patient is immunocompromised, history of multiple myeloma, recently on chemotherapy. On 02/13/2021, the patient is being seen for a follow-up in the intensive care unit. The patient a chest x-ray to the ICU as the patient became progressively more short of breath and hypoxic. A computed tomography scan of the chest was conducted and showed worsening of the bilateral pulmonary pulses were noted earlier. Specifically, the CAT scan of the chest shows bilateral patchy groundglass pulmonary infiltrates that had progressed significantly. Note that this patient has been checked for COVID-19 on multiple occasions and came back all negative. The same time, bronchoscopy and bronchial lavage was done and the results are still pending for now. Meanwhile, we broadened antibiotic coverage because of interval worsening. The patient was started on voriconazole. The patient was also started on pentamadine regarding the possibility of an underlying PCP infection despite the fact that the patient was receiving Bactrim for PCP prophylaxis. He is still having episodes of fever. White cell count is at 3.0. Hemoglobin is at 7. He is less tachycardic compared to yesterday. His current antibiotic or antimicrobial coverage includes IV acyclovir, IV cefepime, voriconazole, IV pentamadine and vancomycin. His vancomycin trough is at 17.4. All of the cultures are negative thus far. Hemodynamically he is stable. His communicating. He is still at the liters of oxygen by nasal cannula and his pulse ox is currently at 97%. He remains on Decadron 28 mg by mouthq month, and the patient is also on bicarb infusion at the rate of 100 mL an hour. Repeat bicarb level is still pending for now as electrodes are still pending. Meanwhile, the patient is also being diuresis with Lasix 40 mg IV every 12 hours as the patient has significant third spacing and edema in the upper and lower extremities. The neck fluid balance has been +1.9 L over the past 24 hours. Patient was reevaluated today on 02/14/2021, remains in the ICU, on 3 L nasal cannula, with O2 saturations 95% on 3 L. IV fluids at KVO, patient is complaining of shortness of breath, he had recent bronchoscopy and BAL, cultures are pending, patient remains on multiple broad-spectrum antibiotics, he is also on antifungal therapy as well as anti-PCP therapy. So far the cultures from the BAL are negative. Chest x-ray continues to show worsening bilateral infiltrates. Labs today showed WBC count of 3.2 hemoglobin 7.2 platelets are 76,000. Electrolytes are normal BUN is 30 creatinine 1.66. Patient remains on acyclovir, cefepime, Gammagard, midodrine, pentamadine, Vfend, off vancomycin. His overall pulmonary status is marginal at best. The patient is seen today 02/15/2021 in the intensive care unit. He is currently resting in bed. Awake and alert. He is still tachypneic. Still dyspneic with minimal exertion. He is maintaining O2 saturation in the low 90s on 3 L/m per nasal cannula. He has been afebrile. Hemodynamically stable. Chest x-ray continues to show bilateral airspace disease. No pneumothorax or pleural effusion. He is status post 2 units of packed red blood cells this ad mission. Current hemoglobin 7.1. Bronchial wash findings are revealing no growth. Cytology is pending. White count 3.0. Platelets 79,000. Sodium 135. Potassium 4.7. Bicarb 15. Creatinine 2.37. Glucose 216. Calcium 7.7. He remains on cefepime. Lasix 40 mg IV push daily. Continued on acyclovir, voriconazole, pentamadine. He is on dexamethasone 28 mg weekly on Mondays. Gammagard. Heparin for DVT prophylaxis. Objective - Vital Signs Vital signs: Vital Signs Temp 98.2 F 02/15/21 04:00 Pulse 90 02/15/21 09:00 Resp 28 H 02/15/21 09:00 BP 121/68 02/15/21 09:00 Pulse Ox 91 L 02/15/21 09:00 Intake & Output 02/14/21 02/15/21 02/15/21 18:59 06:59 18:59 Intake Total 1510.625 270 242 Output Total 650 200 200 Balance 860.625 70 42 Weight 96.2 kg Intake: IV 865 120 20 0.9 20 Cefepime 2 gm In Sodium 100 Chloride 0.9% 100 ml @ 25 mls/hr IVPB Q8HR [facility] Rx# :[id number] Immune Globulin ( 200 Gammagard) 20 gm In Empty Bag 1 bag @ Titrate 37.5 mls/hr IV .Q5H20M [facility] Rx #:[id number] Pentamidine 300 mg In 250 Dextrose 5% in Water 250 ml @ 125 mls/hr IVPB Q24H [facility] Rx#:[id number] Sodium Chloride 0.9% 1, 215 120 000 ml @ 50 mls/hr IV . Q20H [facility] Rx#:[id number] Voriconazole 200 mg In 100 Sodium Chloride 0.9% 100 ml @ 125 mls/hr IVPB Q12H [facility] Rx#:[id number] Intake, IV Titration 145.625 Amount Immune Globulin ( 145.625 Gammagard) 20 gm In Empty Bag 1 bag @ Titrate 37.5 mls/hr IV .Q5H20M [facility] Rx #:[id number] Oral 500 150 222 Output: Urine 650 200 200 Other: Voiding Method Urinal Urinal Urinal # Voids 1 1 # Bowel Movements 1 - Exam GENERAL EXAM: Alert, pale, very pleasant, 50-year-old male, on 3 L of oxygen by nasal cannula. HEAD: Normocephalic/atraumatic. EYES: Normal reaction of pupils, equal size. Conjunctiva pink, sclera white. NOSE: Clear with pink turbinates. THROAT: No erythema or exudates. NECK: No masses, no JVD, no thyroid enlargement, no adenopathy. CHEST: No chest wall deformity. Symmetrical expansion. LUNGS: Equal air entry with scattered rhonchi heard throughout the lung lion bilaterally. CVS: Regular rate and rhythm, normal S1 and S2, no gallops, no murmurs, no rubs ABDOMEN: Soft, nontender. No hepatosplenomegaly, normal bowel sounds, no guarding or rigidity. EXTREMITIES: No clubbing,mild generalized edema, no cyanosis, 2+ pulses and upper and lower extremities. MUSCULOSKELETAL: Muscle strength and tone normal. SPINE: No scoliosis or deformity SKIN: No rashes CENTRAL NERVOUS SYSTEM: No focal deficits, tone is normal in all 4 extremities. PSYCHIATRIC: Alert and oriented -3. Appropriate affect. Intact judgment and insight. - Labs CBC & Chem 7: 02/15/21 04:45 02/15/21 04:45 Labs: Abnormal Lab Results - Last 24 Hours (Table) 02/07/21 02/11/21 02/14/21 Range/Units 07:00 06:21 04:37 WBC 3.2 L (3.8-10.6) k/uL RBC (4.30-5.90) m/uL Hgb (13.0-17.5) gm/dL Hct (39.0-53.0) % MCV (80.0-100.0) fL MCH (25.0-35.0) pg RDW (11.5-15.5) % Plt Count 76 L (150-450) k/uL Myelocytes # (Manual) 0.10 H (0) k/uL Nucleated RBCs 2 H (0-0) /100 WBC Macrocytosis Sodium (137-145) mmol/L Carbon Dioxide (22-30) mmol/L BUN (9-20) mg/dL Creatinine (0.66-1.25) mg/dL Glucose (74-99) mg/dL POC Glucose (mg/dL) (75-99) mg/dL Uric Acid <0.5 L (3.7-8.7) mg/dL Calcium (8.4-10.2) mg/dL Free [place] LC, Quant 69.01 H (0.33-1.94) mg/dL 02/14/21 02/15/21 02/15/21 Range/Units 11:23 04:45 04:45 WBC 3.0 L (3.8-10.6) k/uL RBC 1.95 L (4.30-5.90) m/uL Hgb 7.1 L (13.0-17.5) gm/dL Hct 21.6 L (39.0-53.0) % MCV 111.0 H (80.0-100.0) fL MCH 36.5 H (25.0-35.0) pg RDW 17.9 H (11.5-15.5) % Plt Count 79 L (150-450) k/uL Myelocytes # (Manual) (0) k/uL Nucleated RBCs (0-0) /100 WBC Macrocytosis Marked A Sodium 135 L (137-145) mmol/L Carbon Dioxide 15 L (22-30) mmol/L BUN 58 H (9-20) mg/dL Creatinine 2.37 H (0.66-1.25) mg/dL Glucose 216 H (74-99) mg/dL POC Glucose (mg/dL) 156 H (75-99) mg/dL Uric Acid (3.7-8.7) mg/dL Calcium 7.7 L (8.4-10.2) mg/dL Free [place] LC, Quant (0.33-1.94) mg/dL Microbiology - Last 24 Hours (Table) 02/10/21 10:23 Blood Culture - Preliminary Blood No Growth after 96 hours Assessment and Plan Assessment: 1 Shortness of breath, possibly related to mild interstitial pneumonitis, and anemia, rule out possibility of infectious etiology. CT chest without contrast showed patchy, pulmonary interstitial infiltrates, nonspecific. Patient is currently on a combination of azithromycin and Rocephin, Acyclovir and Bactrim DS. Pro-calcitonin level was 0.31 Legionella urine antigen was negative, COVID- 19 PCR was negative mycoplasma IgG and IgM were negative. ABX placed on cefepime and vancomycin. On acyclovir. The patient is receiving Bactrim for PCP prophylaxis 3 times a week. On 02/09/2021 he underwent a bronchoscopy and bronchial lavage. Subsequently, the patient had significant progression of the pulmonary infiltrates bilaterally and the patient worsening pneumonia. This was evident on the CAT scan of the chest. The chest x-ray from today still showing diffuse bilateral pulmonary infiltrates. He remains on 3 L of oxygen by nasal cannula. Antimicrobial coverage has been modified to include a combination of cefepime, vancomycin, acyclovir and pentamadine and IV voriconazole. The patient is also on IV Lasix. COVID-19 testing is been negative. Bronchoalveolar lavage has been negative. Consider underlying acute lung injury secondary to underlying malignancy/ARDS. Consider pulmonary involvement with his hematologic malignancy. The patient is receiving Decadron 28 mg every week and Gamma Aristeo. 2 History of multiple myeloma with recent progression, and patient is on Empliciti. Patient is being considered for initiation of CAR-T therapy 3 Right arm pain, asymmetric blood pressure, no evidence of subclavian steal syndrome, vascular surgery is following 4 Acute kidney injury, renal function is worsening and currently at 2.37 5 Possible tumor lysis syndrome 6 Hypercalcemia secondary to multiple myeloma, 7 Chronic anemia 8 Hypertension 9 Depression 10 Sinus tachycardia Plan: The patient was seen by Dr. Lebron Chest x-ray and labs reviewed Lasix discontinued Initiated a bicarb drip at 50 MLS per hour Continue the current treatment plan Overall prognosis is guarded DO NOT RESUSCITATE/DO NOT INTUBATE CODE STATUS We will continue to monitor him closely here in the ICU We'll continue to follow and make further recommendations based on his clinical status I, the cosigning physician, performed a history & physical examination of the patient. Lungs sounds bilateral scattered rhonchi. Maintaining O2 saturations in the 90s on 3 L/m per nasal cannula. I discussed the assessment and plan of care with my nurse practitioner, Lissette Quinteros. I attest to the above note as dictated by her.
--- NOTE | 2021-02-15 10:30 | P.PN ---
Subjective Patient is seen in follow-up for acute kidney injury. Renal function worse from diuresis. Lasix was decreased yesterday and stopped this morning. He is now on bicarb drip. Blood pressure stable. On 3 L nasal cannula. Oral intake fair. Vital signs are stable. General: The patient appeared well nourished and normally developed. HEENT: Head exam is unremarkable. On Nasal cannula. LUNGS: Breath sounds decreased. HEART: Irregular rate and rhythm. ABDOMEN: Soft, no distention. EXTREMITITES: No edema. Objective - Vital Signs Vital signs: Vital Signs Temp 98.2 F 02/15/21 04:00 Pulse 92 02/15/21 10:00 Resp 25 H 02/15/21 10:00 BP 123/69 02/15/21 10:00 Pulse Ox 94 L 02/15/21 10:00 Intake & Output 02/14/21 02/15/21 02/15/21 18:59 06:59 18:59 Intake Total 1510.625 270 462 Output Total 650 200 200 Balance 860.625 70 262 Weight 96.2 kg Intake: IV 865 120 40 0.9 40 Cefepime 2 gm In Sodium 100 Chloride 0.9% 100 ml @ 25 mls/hr IVPB Q8HR [facility] Rx# :[id number] Immune Globulin ( 200 Gammagard) 20 gm In Empty Bag 1 bag @ Titrate 37.5 mls/hr IV .Q5H20M [facility] Rx #:[id number] Pentamidine 300 mg In 250 Dextrose 5% in Water 250 ml @ 125 mls/hr IVPB Q24H [facility] Rx#:[id number] Sodium Chloride 0.9% 1, 215 120 000 ml @ 50 mls/hr IV . Q20H [facility] Rx#:[id number] Voriconazole 200 mg In 100 Sodium Chloride 0.9% 100 ml @ 125 mls/hr IVPB Q12H [facility] Rx#:[id number] Intake, IV Titration 145.625 Amount Immune Globulin ( 145.625 Gammagard) 20 gm In Empty Bag 1 bag @ Titrate 37.5 mls/hr IV .Q5H20M [facility] Rx #:[id number] Oral 500 150 422 Output: Urine 650 200 200 Other: Voiding Method Urinal Urinal Urinal # Voids 1 1 # Bowel Movements 1 - Labs CBC & Chem 7: 02/15/21 04:45 02/15/21 04:45 Labs: Abnormal Lab Results - Last 24 Hours (Table) 02/07/21 02/11/21 02/14/21 Range/Units 07:00 06:21 04:37 WBC 3.2 L (3.8-10.6) k/uL RBC (4.30-5.90) m/uL Hgb (13.0-17.5) gm/dL Hct (39.0-53.0) % MCV (80.0-100.0) fL MCH (25.0-35.0) pg RDW (11.5-15.5) % Plt Count 76 L (150-450) k/uL Myelocytes # (Manual) 0.10 H (0) k/uL Nucleated RBCs 2 H (0-0) /100 WBC Macrocytosis Sodium (137-145) mmol/L Carbon Dioxide (22-30) mmol/L BUN (9-20) mg/dL Creatinine (0.66-1.25) mg/dL Glucose (74-99) mg/dL POC Glucose (mg/dL) (75-99) mg/dL Uric Acid <0.5 L (3.7-8.7) mg/dL Calcium (8.4-10.2) mg/dL Free [place] LC, Quant 69.01 H (0.33-1.94) mg/dL 02/14/21 02/15/21 02/15/21 Range/Units 11:23 04:45 04:45 WBC 3.0 L (3.8-10.6) k/uL RBC 1.95 L (4.30-5.90) m/uL Hgb 7.1 L (13.0-17.5) gm/dL Hct 21.6 L (39.0-53.0) % MCV 111.0 H (80.0-100.0) fL MCH 36.5 H (25.0-35.0) pg RDW 17.9 H (11.5-15.5) % Plt Count 79 L (150-450) k/uL Myelocytes # (Manual) (0) k/uL Nucleated RBCs (0-0) /100 WBC Macrocytosis Marked A Sodium 135 L (137-145) mmol/L Carbon Dioxide 15 L (22-30) mmol/L BUN 58 H (9-20) mg/dL Creatinine 2.37 H (0.66-1.25) mg/dL Glucose 216 H (74-99) mg/dL POC Glucose (mg/dL) 156 H (75-99) mg/dL Uric Acid (3.7-8.7) mg/dL Calcium 7.7 L (8.4-10.2) mg/dL Free [place] LC, Quant (0.33-1.94) mg/dL Microbiology - Last 24 Hours (Table) 02/10/21 10:23 Blood Culture - Preliminary Blood No Growth after 96 hours Assessment and Plan Plan: Assessment: 1. Acute kidney injury secondary to ATN secondary to hypotension and diuresis. Renal function worsening. ?IVIG induced. Creatinine 2.37 today. UA benign. 2. Pneumonia maintained on antibiotics as well as anti-fungal. Infectious disease following. 3. Volume overload. Improved with diuresis. 4. Metabolic acidosis secondary to acute kidney injury. 5. Hypervolemic hyponatremia. Better. 6. History of multiple myeloma. Oncology following. Receiving IVIG. Plan: Maintain bicarb drip. Diuretics discontinued. Avoid nephrotoxins. Continue to monitor renal function and urine output.
--- NOTE | 2021-02-15 10:30 | PN ---
PROGRESS NOTE Mr. Arthur is a 50-year-old male with known history of multiple myeloma who presented with symptoms of progressive dyspnea and evidence of pneumonia. There was no evidence of COVID-19 infection. He had an episode of atrial fibrillation but continues to be in sinus mechanism at this time. He is feeling slightly better today. His breathing is better. He is denying any chest pain. He denies any dizziness or palpitation. He denies any nausea. He continues to be at this time on acyclovir, cefepime, dexamethasone, Lexapro, Lasix 40 mg IV daily, metoprolol tartrate 25 mg three times a day, midodrine 5 mg three times a day. PHYSICAL EXAMINATION: Blood pressure 116/60 with a heart rate in the 80s. LUNGS: No wheezes or rales. HEART: Regular rate and rhythm. S1, S2. No S3, with systolic murmur at the base, ejection type. No diastolic murmur. No rub. ABDOMEN: Soft. Nontender. Positive bowel sounds. No organomegaly. EXTREMITIES: No edema. LAB DATA: Hemoglobin of 7.1, white blood cell count of 3.0, platelet count 79,000. BUN and creatinine 58 and 2.37. Potassium 4.7. IMPRESSION: 1. Pneumonia with no evidence of COVID-19 infection in an immunocompromised patient. 2. Pancytopenia. 3. Multiple myeloma with recent progression. 4. Prior history of hypertension, stable. 5. Acute kidney injury. RECOMMENDATIONS: From the cardiac standpoint, will continue present therapy. Patient is not a candidate for anticoagulation because of his pancytopenia. He had an echocardiogram performed during this admission that revealed preserved left ventricular size and systolic function. At this time, no further cardiac intervention is needed. Will see him on as- needed basis. Please feel free to call us with any question. MMODL / IJN: [id number] / ARON
[2021-02-15] MEDS: DEXTROSE 5% IN WATER 1,000 ML with SODIUM BICARB (1 MEQ/ML) 150 ML IV SCH (10:36)
[2021-02-15 10:54] LABS: Eosinophils # (M) 0.03 k/uL (0-0.7); Lymphocytes # (M) 0.39 k/uL (1.0-4.8); Monocytes # (M) 0.33 k/uL (0-1.0); Neutrophils # (M) 1.71 k/uL (1.3-7.7); Neutrophils % (M) 57 %; Nucleated Red Blood Cells 1 /100 WBC (0-0); Plasma Cells # (M) 0.57 k/uL (0); Plasma Cells % 19 %; Polychromasia Present; Total Cells Counted 200
[2021-02-15 10:55] LABS: Platelet Count 79 k/uL (150-450)
[2021-02-15] MEDS: DEXTROSE 5% IVPB SCH ×2 (12:06)
[2021-02-15] MEDS: PENTAMIDINE IVPB SCH ×2 (12:06)
[2021-02-15] MEDS: WATER IVPB SCH ×2 (12:06)
[2021-02-15] MEDS: HYDROcodone/APAP 10-325MG 1 EACH TAB PO PRN ×2 (13:36→19:17)
[2021-02-15] MEDS: VORICONAZOLE 200 MG in SODIUM CHLORIDE 0.9% 100 ML IVPB SCH (13:51)
[2021-02-15] MEDS ORDERED: IMMUNE GLOBULIN (GAMMAGARD) 20 GM in EMPTY BAG 1 BAG IV ONE (14:00)
--- NOTE | 2021-02-15 15:22 | P.PN ---
Subjective Progress Note Date: 02/14/21 Principal diagnosis: Bilateral interstitial pneumonia. With bilateral groundglass and interstitial infiltrates. Acute kidney injury secondary to hypercalcemia and hypotension, improving Multiple myeloma on chemotherapy Paroxysmal A. fib, currently converted to sinus rhythm This is a pleasant 50 years old male with multiple medical problems including multiple myeloma presents with acute kidney injury secondary to hypotension and hypercalcemia and currently is been followed closely by nephrology team while continued on normal saline at 75 mL/h. Also hematology/oncology team following the patient status post chemotherapy for hypercalcemia and status post pamidronate today. Pulmonary team and ID team for bilateral pneumonia, there is abnormal CT but clinically complaining only from exertional dyspnea. No fever or coughing. Patient currently current with ceftriaxone and Zithromax. Also patient is on home medication of acyclovir and Bactrim. Patient also continued on dexamethasone Other than that he is hemodynamically stable. No more fever. He is on room air. He has mild pancytopenia. Creatinine 1.5, calcium elevated at 10.8. Ejection fraction is 55-60%. CT of the chest showed patchy ground glass interstitial infiltrates., On 02/0402/08/2021 Patient still with exertional dyspnea. Very occasional dry coughing. No chest pain. No other specific complaints. He remains on room air and vitals are stable. No more fever. Labs are not concerning, he has stable pancytopenia, calcium is back to normal at 9. Creatinine improved significantly to 1.1. He has some mild evidence of acidemia with low carbon dioxide and patient was started on some sodium b icarbonate drip by nephrology team today. He remains on ceftriaxone and Zithromax. Dexamethasone which is a home medication. IV fluid. Several consultants on the case including pulmonary, ID, nephrology and oncology/hematology. 02/09/2021 Patient clinically the same with exertional dyspnea. His still mildly tachycardic and febrile and rest of vitals are stable. He still has pancytopenia with WBC 1.5, hemoglobin 6.9 and a platelet 59. Hematology team on the case. Creatinine 1.0. Chest x-ray showing worsening bilateral infiltrates, coronavirus detected is negative. We have reordered procalcitonin and proBNP. Patient is on antibiotics with ceftriaxone and Zithromax, acyclovir and Bactrim. ID team and pulmonary team on the case. 02/10/2021 Patient still with dyspnea. He had a fever of 101.8 today. And his chest x-ray looks worse. Currently he is on ceftriaxone and Zithromax. He has pancytopenia and his hemoglobin dropped to 6.4. He is getting 1 unit of blood transfusion. Creatinine normal. Anion gap is normal carbon dioxide slightly low. He remains on Zithromax and ceftriaxone and dexamethasone and sodium bicarb. We will discuss with infectious disease team about his antibiotic management. 02/11/2021 Patient is more tachypneic today. He denies chest pain. No other specific complaints. His vitals little worse, he still has a fever of 101.7. He is saturating 93% on room air. He is tachycardic around 110. Blood pressure is 99/69. Remains pancytopenic with WBC is 2.2, hemoglobin 7 after 1 unit of blood transfusion and platelets 56. Creatinine remains stable. Calcium was low. His antibiotics were adjusted to cefepime and IV vancomycin. Remains on dexam ethasone. IV fluids of sodium bicarb was stopped and switched to bicarb pedal and started on IV Lasix 40 mg twice daily. Also oncology on the case for chemotherapy. His procalcitonin is mildly worsened up to 0.34. Patient eroded by pulmonary team for bronchoscopy tomorrow 02/12/2021 Patient is continued to be dyspneic and multiple select unit. No chest pain or significant cough. He has exertional dyspnea and he needs help going to the restroom. He is tachypneic at 26, blood pressure is low normal for the last few days which looks his stable, currently 93/56. He is tachycardic at 114. And had fever yesterday. His CBC looks his stable with WBC 3.1, hemoglobin is improved 7.9 and platelets stable at 57. Creatinine 1.1, went up to 1.[address] of the chest without contrast showing bilateral patchy ground glass infiltrate which is progressed since admission. However patient covid test was checked 2 days ago that was negative, Patient remains on cefepime and IV vancomycin, voriconazole is been added. 13 considering the bronchoscopy. He is on sodium bicarbonate pills, IV fluid was stopped. Continued on IV Lasix 40 mg twice daily. Also he is on dexamethasone. Prognosis remains guarded Also he developed short period of A. fib, currently converted to sinus rhythm. 02/13/2021 Patient moved to the ICU today. He is status post bronchoscopy with bronchoalveolar lavage. After that his tachypnea is significantly improved however still significantly tachypneic especially if he tries to talk or move. His condition remains critical despite partial improvement after the bronch oscopy. He remains febrile with 102.7 today. He is tachycardic and tachypneic. Blood pressure is borderline and he was started on normal saline at 50 mL per hour plus metoprolol 50 mg twice a day and Lasix 40 mg twice a day. Labs basically looks stable with little fluctuation. His WBC is 3 today, hemoglobin 7 and platelets 61 with hematology on the case. He has multiple cultures are pending, please refer to order set. Chest x-ray showing persistent bilateral infiltrate. Patient remains on broad-spectrum antibiotics with cefepime, IV vancomycin and voriconazole. Also he is on steroids 02/14/2021 Patient is currently in the MICU. Complaining of shortness of breath. Requiring oxygen 3 L per nasal cannula. No complaints of chest pain. Patient has been afebrile. No nausea vomiting or abdominal pain or diarrhea. No headache or dizziness. Patient is on broad-spectrum antibiotics and antifungals. Status post bronchoscopy. BAL fluids showed no growth so far. Negative for malignant cells. Patient is pancytopenic due to multiple myeloma. WBC 3.2 hemoglobin 7.2 platelets 76 Sodium 134 potassium 4.2 chloride 10 to bicarb is 20 BUN 30 and creatinine 1.66, calcium 7.7 Patient is being continued on acyclovir, cefepime, voriconazole and also on dexamethasone. Heart rate is controlled with metoprolol 25 mg 3 times a day. Remains in sinus rhythm. Current medications reviewed. Objective - Vital Signs Vital signs: Vital Signs Temp 97.9 F 02/14/21 20:00 Pulse 88 02/14/21 21:00 Resp 38 H 02/14/21 21:00 BP 125/65 02/14/21 21:00 Pulse Ox 88 L 02/14/21 21:00 Intake & Output 02/14/21 02/14/21 02/15/21 06:59 18:59 06:59 Intake Total 840 1510.625 180 Output Total 500 650 200 Balance 340 860.625 -20 Weight 95.9 kg Intake: IV 640 865 30 0.9 40 Cefepime 2 gm In Sodium 100 Chloride 0.9% 100 ml @ 25 mls/hr IVPB Q8HR [facility] Rx# :[id number] Immune Globulin ( 200 Gammagard) 20 gm In Empty Bag 1 bag @ Titrate 37.5 mls/hr IV .Q5H20M [facility] Rx #:[id number] Pentamidine 300 mg In 250 Dextrose 5% in Water 250 ml @ 125 mls/hr IVPB Q24H [facility] Rx#:[id number] Sodium Chloride 0.9% 1, 600 215 30 000 ml @ 50 mls/hr IV . Q20H [facility] Rx#:[id number] Voriconazole 200 mg In 100 Sodium Chloride 0.9% 100 ml @ 125 mls/hr IVPB Q12H [facility] Rx#:[id number] Intake, IV Titration 145.625 Amount Immune Globulin ( 145.625 [place]amm[place]ard) 20 gm In Empty Bag 1 bag @ Titrate 37.5 mls/hr IV .Q5H20M [facility] Rx #:[id number] Oral 200 500 150 Output: Urine 500 650 200 Other: Voiding Method Urinal Urinal Urinal # Voids 1 1 # Bowel Movements 1 - Exam - Exam GENERAL: The patient is alert and oriented x3, not in any acute distress. Well developed, well nourished. HEENT: Pupils are round and equally reacting to light. EOMI. No scleral icterus. No conjunctival pallor. Normocephalic, atraumatic. No pharyngeal erythema. No thyromegaly. CARDIOVASCULAR: S1 and S2 present. No murmurs, rubs, or gallops. PULMONARY: Chest is clear to auscultation, no wheezing or crackles. ABDOMEN: Soft, nontender, nondistended, normoactive bowel sounds. No palpable organomegaly. MUSCULOSKELETAL: No joint swelling or deformity. EXTREMITIES: No cyanosis, clubbing, or pedal edema. NEUROLOGICAL: Gross neurological examination did not reveal any focal deficits. SKIN: No rashes. no petechiae. - Labs CBC & Chem 7: 02/15/21 04:45 02/15/21 04:45 Labs: Abnormal Lab Results - Last 24 Hours (Table) 02/07/21 02/11/21 02/14/21 Range/Units 07:00 06:21 04:37 WBC (3.8-10.6) k/uL RBC (4.30-5.90) m/uL Hgb (13.0-17.5) gm/dL Hct (39.0-53.0) % MCV (80.0-100.0) fL MCH (25.0-35.0) pg RDW (11.5-15.5) % Plt Count (150-450) k/uL Myelocytes # (Manual) (0) k/uL Nucleated RBCs (0-0) /100 WBC Macrocytosis Sodium 134 L (137-145) mmol/L Carbon Dioxide 20 L (22-30) mmol/L BUN 30 H (9-20) mg/dL Creatinine 1.66 H (0.66-1.25) mg/dL Glucose 137 H (74-99) mg/dL POC Glucose (mg/dL) (75-99) mg/dL Uric Acid <0.5 L (3.7-8.7) mg/dL Calcium 7.7 L (8.4-10.2) mg/dL Free [place] LC, Quant 69.01 H (0.33-1.94) mg/dL 02/14/21 02/14/21 Range/Units 04:37 11:23 WBC 3.2 L (3.8-10.6) k/uL RBC 2.00 L (4.30-5.90) m/uL Hgb 7.2 L (13.0-17.5) gm/dL Hct 21.4 L (39.0-53.0) % MCV 107.4 H (80.0-100.0) fL MCH 36.1 H (25.0-35.0) pg RDW 17.6 H (11.5-15.5) % Plt Count 76 L (150-450) k/uL Myelocytes # (Manual) 0.10 H (0) k/uL Nucleated RBCs 2 H (0-0) /100 WBC Macrocytosis Marked A Sodium (137-145) mmol/L Carbon Dioxide (22-30) mmol/L BUN (9-20) mg/dL Creatinine (0.66-1.25) mg/dL Glucose (74-99) mg/dL POC Glucose (mg/dL) 156 H (75-99) mg/dL Uric Acid (3.7-8.7) mg/dL Calcium (8.4-10.2) mg/dL Free [place] LC, Quant (0.33-1.94) mg/dL Microbiology - Last 24 Hours (Table) 02/10/21 10:23 Blood Culture - Preliminary Blood No Growth after 96 hours Assessment and Plan Assessment: Bilateral interstitial pneumonia. With bilateral groundglass and interstitial infiltrates. Status post bronchoscopy. BAL cultures negative so far. Acute kidney injury secondary to hypercalcemia and hypotension, improving Multiple myeloma on chemotherapy Paroxysmal A. fib, currently converted to sinus rhythm Hypercalcemia and hyperparathyroidism status post pamidronate dose. Pancytopenia secondary to multiple myeloma and medication DVT prophylaxis with heparin subcu Plan: This is a pleasant 50 years old male who presents with pneumonia, PAUL and hypercalcemia and multiple myeloma Continue with broad-spectrum antibiotics. Infectious disease team, currently on cefepime and Voriconazole added. ID and pulmonary team on the case. Follow-up Renal function closely. Continue chemotherapy per hematology/oncology team will follow the patient. Labs and medication were reviewed. Monitor lytes and vitals. DVT and GI prophyl axis. DVT prophylaxis: Subcutaneous heparin GI Prophylaxis: ppi Prognosis is guarded Time with Patient: Greater than 30
--- NOTE | 2021-02-15 17:23 | PN ---
PROGRESS NOTE DATE OF SERVICE: 02/15/2021 REASON FOR FOLLOWUP: Pneumonia. INTERVAL HISTORY: The patient is afebrile today. The patient is still complaining of shortness of breath. He is currently requiring about 3 L nasal cannula. The patient denies having any chest pain. He did have a cough with sputum. No hemoptysis. No vomiting. No abdominal pain or diarrhea. PHYSICAL EXAMINATION: Blood pressure 102/68 with a pulse of 84, temperature 97.9. He is 95% on 3 L nasal cannula. General description is a middle-aged male lying in bed in no distress. RESPIRATORY SYSTEM: Unlabored breathing. Decreased intensity of breath sounds. No wheeze. HEART: S1, S2. Regular rate and rhythm. ABDOMEN: Soft. No tenderness. LABS: Hemoglobin is 7.9, white count 3.0, BUN of 58, creatinine 2.37. Cultures remain pending. DIAGNOSTIC IMPRESSION AND PLAN: Patient with pneumonia, possibly concerning for PCP on the basis of the the patient is on, especially steroids, and aspergillus. The patient is currently on pentamidine and voriconazole while waiting for the culture to finalize. Prognosis remains guarded. Continue supportive care. MMODL / IJN: [id number] /
[2021-02-15] MEDS ORDERED: methylPREDNISolone SOD SUCCI 125 MG/2 ML VIAL IV STA (19:01)
[2021-02-15] MEDS: ZOLPIDEM 5 MG TAB PO SCH (20:26)
[2021-02-15] MEDS: ESCITALOPRAM 20 MG TAB PO SCH (20:48)
[2021-02-15] MEDS: MIRTAZAPINE 15 MG TAB PO SCH (20:48)
[2021-02-16] MEDS: methylPREDNISolone SOD SUCCI 125 MG/2 ML VIAL IV SCH ×5 (00:10→23:12)
[2021-02-16] MEDS: VORICONAZOLE 200 MG in SODIUM CHLORIDE 0.9% 100 ML IVPB SCH ×3 (00:10→23:11)
[2021-02-16 06:49] LABS: Anisocytosis Slight; Calcium 7.4 mg/dL (8.4-10.2); MCH 36.6 pg (25.0-35.0); MCHC 33.5 g/dL (31.0-37.0); MCV 109.4 fL (80.0-100.0); Macrocytosis Marked; Mean Platelet Volume 9.6; Platelet Count 90 k/uL (150-450); Potassium 4.9 mmol/L (3.5-5.1); RBC 1.92 m/uL (4.30-5.90); RDW 17.9 % (11.5-15.5)
[2021-02-16] MEDS: MIDODRINE 5 MG TAB PO SCH ×3 (07:13→22:43)
[2021-02-16] MEDS: PANTOPRAZOLE 40 MG TABLET PO SCH (08:11)
[2021-02-16] MEDS: ACYCLOVIR 200 MG CAP PO SCH ×2 (08:11→20:35)
[2021-02-16] MEDS: CYANOCOBALAMIN 500 MCG TAB PO SCH (08:12)
[2021-02-16] MEDS: METOPROLOL TARTRATE 25 MG TAB PO SCH ×3 (08:12→20:39)
[2021-02-16] MEDS: CHOLECALCIFEROL 25 MCG (1000 IU) TABLET PO SCH (08:12)
[2021-02-16] MEDS: CEFEPIME 2 GM in SODIUM CHLORIDE 0.9% 100 ML IVPB SCH (08:12)
[2021-02-16 09:21] LABS: Band Neutrophils % 1 %; Eosinophils # (M) 0.03 k/uL (0-0.7); Lymphocytes # (M) 0.39 k/uL (1.0-4.8); Monocytes # (M) 0.06 k/uL (0-1.0); Myelocytes # (M) 0.06 k/uL (0); Myelocytes % 2 %; Neutrophils % (M) 74 %; Nucleated Red Blood Cells 4 /100 WBC (0-0); Plasma Cells # (M) 0.25 k/uL (0); Plasma Cells % 9 %; Total Cells Counted 200; WBC 2.8 k/uL (3.8-10.6)
[2021-02-16] MEDS: DEXTROSE 5% IN WATER 1,000 ML with SODIUM BICARB (1 MEQ/ML) 150 ML IV SCH (10:50)
--- NOTE | 2021-02-16 10:58 | P.PN ---
Subjective Patient is seen in follow-up for acute kidney injury. Renal function continues to worsen. Maintained on bicarb drip. Rate was increased this morning. Oral intake poor. Vital signs are stable. General: The patient appeared well nourished and normally developed. HEENT: Head exam is unremarkable. On Nasal cannula. LUNGS: Breath sounds decreased. HEART: Irregular rate and rhythm. ABDOMEN: Soft, no distention. EXTREMITITES: No edema. Objective - Vital Signs Vital signs: Vital Signs Temp 98.5 F 02/16/21 08:00 Pulse 86 02/16/21 10:00 Resp 29 H 02/16/21 10:00 BP 109/71 02/16/21 10:00 Pulse Ox 93 L 02/16/21 10:00 Intake & Output 02/15/21 02/16/21 02/16/21 18:59 06:59 18:59 Intake Total 1824.5 1087.5 575 Output Total 350 400 0 Balance 1474.5 687.5 575 Intake: IV 902.5 837.5 375 0.9 40 Cefepime 2 gm In Sodium 100 100 Chloride 0.9% 100 ml @ 25 mls/hr IVPB Q8HR [facility] Rx# :[id number] Dextrose 5% in Water 1, 400 600 275 000 ml @ 75 mls/hr IV . [id number] [facility] with Sodium Bicarb (1 Meq/ml) 150 ml Rx#:[id number] Immune Globulin ( 112.5 37.5 Gammagard) 20 gm In Empty Bag 1 bag @ Titrate 37.5 mls/hr IV .Q5H20M [facility] Rx #:[id number] Pentamidine 300 mg In 250 Dextrose 5% in Water 250 ml @ 125 mls/hr IVPB Q24H [facility] Rx#:[id number] Voriconazole 200 mg In 100 100 Sodium Chloride 0.9% 100 ml @ 125 mls/hr IVPB Q12H [facility] Rx#:[id number] Oral 922 250 200 Output: Urine 350 400 0 Other: Voiding Method Urinal Urinal # Voids 1 1 - Labs CBC & Chem 7: 02/16/21 05:56 02/16/21 05:56 Labs: Abnormal Lab Results - Last 24 Hours (Table) 10/26/21 10/27/21 10/27/21 Range/Units 04:45 05:56 05:56 WBC 2.8 L (3.8-10.6) k/uL RBC 1.92 L (4.30-5.90) m/uL Hgb 7.0 L (13.0-17.5) gm/dL Hct 21.0 L (39.0-53.0) % MCV 109.4 H (80.0-100.0) fL MCH 36.6 H (25.0-35.0) pg RDW 17.9 H (11.5-15.5) % Plt Count 79 L 90 L (150-450) k/uL Lymphocytes # (Manual) 0.39 L 0.39 L (1.0-4.8) k/uL Myelocytes # (Manual) 0.06 H (0) k/uL Plasma Cell # (Manual) 0.57 H 0.25 H (0) k/uL Nucleated RBCs 1 H 4 H (0-0) /100 WBC Macrocytosis Marked A Sodium 133 L (137-145) mmol/L Carbon Dioxide 16 L (22-30) mmol/L BUN 97 H (9-20) mg/dL Creatinine 3.20 H (0.66-1.25) mg/dL Glucose 229 H (74-99) mg/dL Calcium 7.4 L (8.4-10.2) mg/dL Microbiology - Last 24 Hours (Table) 02/10/21 10:23 Blood Culture - Preliminary Blood No Growth after 120 hours Assessment and Plan Plan: Assessment: 1. Acute kidney injury secondary to ATN secondary to sepsis and diuresis. Renal function worsening. ?IVIG induced vs myeloma kidney. Creatinine 3.34 today. UA benign. 2. Pneumonia maintained on antibiotics as well as anti-fungal. Infectious disease following. 3. Volume overload. Improved with diuresis. 4. Metabolic acidosis secondary to acute kidney injury. 5. Hyponatremia secondary to acute kidney injury. 6. History of multiple myeloma. Oncology following. s/p IVIG. On steroids. Plan: Maintain bicarb drip. Diuretics discontinued. Avoid nephrotoxins. Continue to monitor renal function and urine output. Patient considering hospice. Prognosis guarded. Poor candidate for renal replacement therapy due to resistant myeloma.
[2021-02-16] MEDS: HYDROcodone/APAP 10-325MG 1 EACH TAB PO PRN ×2 (12:07→18:38)
--- NOTE | 2021-02-16 13:18 | P.PN ---
Subjective Progress Note Date: 02/15/21 Principal diagnosis: Dyspnea, MM In f/u today pt states he is just tired, when he is sleeping his breathing is still shallow, maybe struggling just a little less then yesterday to breathe. Objective - Vital Signs Vital signs: Vital Signs Temp 97.9 F 02/15/21 12:00 Pulse 84 02/15/21 15:00 Resp 16 02/15/21 15:00 BP 102/68 02/15/21 15:00 Pulse Ox 84 L 02/15/21 15:00 Intake & Output 02/14/21 02/15/21 02/15/21 18:59 06:59 18:59 Intake Total 1510.924 493 6086 Output Total 650 200 350 Balance 860.773 96 8755 Weight 96.2 kg Intake: IV 865 120 590 0.9 40 Cefepime 2 gm In Sodium 100 Chloride 0.9% 100 ml @ 25 mls/hr IVPB Q8HR [facility] Rx# :[id number] Dextrose 5% in Water 1, 200 000 ml @ 50 mls/hr IV . Q23H [facility] with Sodium Bicarb (1 Meq/ml) 150 ml Rx#:[id number] Immune Globulin ( 200 Gammagard) 20 gm In Empty Bag 1 bag @ Titrate 37.5 mls/hr IV .Q5H20M [facility] Rx #:[id number] Pentamidine 300 mg In 250 250 Dextrose 5% in Water 250 ml @ 125 mls/hr IVPB Q24H [facility] Rx#:[id number] Sodium Chloride 0.9% 1, 215 120 000 ml @ 50 mls/hr IV . Q20H [facility] Rx#:[id number] Voriconazole 200 mg In 100 100 Sodium Chloride 0.9% 100 ml @ 125 mls/hr IVPB Q12H [facility] Rx#:[id number] Intake, IV Titration 145.625 Amount Immune Globulin ( 145.625 Gammagard) 20 gm In Empty Bag 1 bag @ Titrate 37.5 mls/hr IV .Q5H20M [facility] Rx #:[id number] Oral 500 150 922 Output: Urine 650 200 350 Other: Voiding Method Urinal Urinal Urinal # Voids 1 1 # Bowel Movements 1 - Constitutional General appearance: Present: cooperative, severe distress - EENT EENT Comment(s): very dry mouth Eyes: Present: anicteric sclerae, EOMI ENT: Present: hearing grossly normal - Respiratory Respiratory: bilateral: diminished, other (no wheeze at sternal notch) - Cardiovascular Heart sounds: normal: S1, S2 - Peripheral edema leg Peripheral Edema: bilateral: Trace - Gastrointestinal General gastrointestinal: Present: distended, normal bowel sounds, soft - Integumentary Integumentary: Present: pale - Musculoskeletal Musculoskeletal Comment(s): Strength is intact, cannot move much 2/2 resp status Musculoskeletal: Present: generalized weakness - Psychiatric Psychiatric: Present: A&O x's 3, appropriate affect - Labs CBC & Chem 7: 02/16/21 05:56 02/16/21 05:56 Labs: Abnormal Lab Results - Last 24 Hours (Table) 02/15/21 02/15/21 Range/Units 04:45 04:45 WBC 3.0 L (3.8-10.6) k/uL RBC 1.95 L (4.30-5.90) m/uL Hgb 7.1 L (13.0-17.5) gm/dL Hct 21.6 L (39.0-53.0) % MCV 111.0 H (80.0-100.0) fL MCH 36.5 H (25.0-35.0) pg RDW 17.9 H (11.5-15.5) % Plt Count 79 L (150-450) k/uL Lymphocytes # (Manual) 0.39 L (1.0-4.8) k/uL Plasma Cell # (Manual) 0.57 H (0) k/uL Nucleated RBCs 1 H (0-0) /100 WBC Macrocytosis Marked A Sodium 135 L (137-145) mmol/L Carbon Dioxide 15 L (22-30) mmol/L BUN 58 H (9-20) mg/dL Creatinine 2.37 H (0.66-1.25) mg/dL Glucose 216 H (74-99) mg/dL Calcium 7.7 L (8.4-10.2) mg/dL Microbiology - Last 24 Hours (Table) 02/10/21 10:23 Blood Culture - Preliminary Blood No Growth after 120 hours Assessment and Plan (1) Dyspnea Narrative/Plan: Pulmonary has performed bronch with washings, results reported revealing no infectious process. Last fever was 02/13. 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 IgG 151. Pt having fevers, no cultures have come back positive, he remains on broad spectrum abx, antiviral and antifungal and antiprotozal since . IVIG x doses completed Current Visit: Yes Status: Acute Priority: High Code(s): D80.1 - NONFAMILIAL HYPOGAMMAGLOBULINEMIA; C90.00 - MULTIPLE MYELOMA NOT HAVING ACHIEVED REMISSION SNOMED Code(s): 79181229303250769 (3) Acute kidney injury Narrative/Plan: Renal function cont to decline, Cr 3.2 today. Nephrology is following. Pt may be considered for dialysis if his respiratory status improves Current Visit: Yes Status: Acute Code(s): N17.9 - ACUTE KIDNEY FAILURE, UNSPECIFIED SNOMED Code(s): 53031557 (4) Atelectasis of both lungs Current Visit: No Status: Acute Code(s): J98.11 - ATELECTASIS SNOMED Code(s): 43397797 (5) Hypercalcemia Current Visit: Yes Status: Resolved Priority: High Code(s): E83.52 - HYPERCALCEMIA SNOMED Code(s): 52926421 (6) [place] light chain myeloma Narrative/Plan: Just initiated on new regimen 2 weeks ago. [place] light chains elevated but, regimen started about 3 weeks after last [place] light chain level. FKLC 88, down to 69. Holding pomalyst due to resp symptoms and fever. Current Visit: Yes Status: Chronic Priority: High Code(s): C90.00 - MULTIPLE MYELOMA NOT HAVING ACHIEVED REMISSION SNOMED Code(s): 394817523 Plan: Dr. Monzon spoke with Dr. Joe and last night. Decision was made to try steroids with the understanding that if pt has an atypical viral infection steroids could exacerbate his resp status. spoke to pt and they agreed to give a try to the steroids. Today pt resp status is still critical but maybe a very little less labored. Cont current course and all treatments, Critical Care management. Dr. Nicolás to discuss case with Nephrology. If pt resp status shows some improvement in the next 24-48 hours then dialysis should be considered. Pt has treatment options left for myeloma and currently his disease is controlled. Attests: I have seen and examined pt, performed H&P, developed impression and plan of care. Discussed with dictator. Agree with documentation, documented as a scribe.
--- NOTE | 2021-02-16 13:22 | P.PN ---
Subjective Progress Note Date: 02/16/21 Principal diagnosis: Acute hypoxic respiratory failure secondary to community-acquired pneumonia, patient is immunocompromised, history of multiple myeloma, recently on chemotherapy. On 02/13/2021, the patient is being seen for a follow-up in the intensive care unit. The patient a chest x-ray to the ICU as the patient became progressively more short of breath and hypoxic. A computed tomography scan of the chest was conducted and showed worsening of the bilateral pulmonary pulses were noted earlier. Specifically, the CAT scan of the chest shows bilateral patchy groundglass pulmonary infiltrates that had progressed significantly. Note that this patient has been checked for COVID-19 on multiple occasions and came back all negative. The same time, bronchoscopy and bronchial lavage was done and the results are still pending for now. Meanwhile, we broadened antibiotic coverage because of interval worsening. The patient was started on voriconazole. The patient was also started on pentamadine regarding the possibility of an underlying PCP infection despite the fact that the patient was receiving Bactrim for PCP prophylaxis. He is still having episodes of fever. White cell count is at 3.0. Hemoglobin is at 7. He is less tachycardic compared to yesterday. His current antibiotic or antimicrobial coverage includes IV acyclovir, IV cefepime, voriconazole, IV pentamadine and vancomycin. His vancomycin trough is at 17.4. All of the cultures are negative thus far. Hemodynamically he is stable. His communicating. He is still at the liters of oxygen by nasal cannula and his pulse ox is currently at 97%. He remains on Decadron 28 mg by mouthq month, and the patient is also on bicarb infusion at the rate of 100 mL an hour. Repeat bicarb level is still pending for now as electrodes are still pending. Meanwhile, the patient is also being diuresis with Lasix 40 mg IV every 12 hours as the patient has significant third spacing and edema in the upper and lower extremities. The neck fluid balance has been +1.9 L over the past 24 hours. Patient was reevaluated today on 02/14/2021, remains in the ICU, on 3 L nasal cannula, with O2 saturations 95% on 3 L. IV fluids at KVO, patient is complaining of shortness of breath, he had recent bronchoscopy and BAL, cultures are pending, patient remains on multiple broad-spectrum antibiotics, he is also on antifungal therapy as well as anti-PCP therapy. So far the cultures from the BAL are negative. Chest x-ray continues to show worsening bilateral infiltrates. Labs today showed WBC count of 3.2 hemoglobin 7.2 platelets are 76,000. Electrolytes are normal BUN is 30 creatinine 1.66. Patient remains on acyclovir, cefepime, Gammagard, midodrine, pentamadine, Vfend, off vancomycin. His overall pulmonary status is marginal at best. The patient is seen today 02/15/2021 in the intensive care unit. He is currently resting in bed. Awake and alert. He is still tachypneic. Still dyspneic with minimal exertion. He is maintaining O2 saturation in the low 90s on 3 L/m per nasal cannula. He has been afebrile. Hemodynamically stable. Chest x-ray continues to show bilateral airspace disease. No pneumothorax or pleural effusion. He is status post 2 units of packed red blood cells this ad mission. Current hemoglobin 7.1. Bronchial wash findings are revealing no growth. Cytology is pending. White count 3.0. Platelets 79,000. Sodium 135. Potassium 4.7. Bicarb 15. Creatinine 2.37. Glucose 216. Calcium 7.7. He remains on cefepime. Lasix 40 mg IV push daily. Continued on acyclovir, voriconazole, pentamadine. He is on dexamethasone 28 mg weekly on Mondays. Gammagard. Heparin for DVT prophylaxis. The patient is seen today 02/16/2021 in follow-up in the intensive care unit. He is currently resting fairly comfortably in bed. He is still tachypneic. Still feelings of shortness of breath. Maintaining O2 saturations in the 90s on 3 L/m nasal cannula. Currently afebrile. White count 2.8. Hemoglobin 7.0. Platelet count 90,000. Sodium 133. Potassium 4.9. Creatinine 3.20. Glucose 229. Calcium 7.4. He remains on cefepime, voriconazole, pentamadine, acyclovi r. Continued on Decadron 28 mg every Sunday. Currently on a bicarb drip at 75 ML's per hour. Heparin for DVT prophylaxis. He has been having episodes of confusion. Objective - Vital Signs Vital signs: Vital Signs Temp 98.5 F 02/16/21 08:00 Pulse 86 10/27/21 10:00 Resp 29 H 02/16/21 10:00 BP 109/71 02/16/21 10:00 Pulse Ox 93 L 02/16/21 10:00 Intake & Output 02/15/21 02/16/21 02/16/21 18:59 06:59 18:59 Intake Total 1824.5 1087.5 575 Output Total 350 400 0 Balance 1474.5 687.5 575 Intake: IV 902.5 837.5 375 0.9 40 Cefepime 2 gm In Sodium 100 100 Chloride 0.9% 100 ml @ 25 mls/hr IVPB Q8HR [facility] Rx# :[id number] Dextrose 5% in Water 1, 400 600 275 000 ml @ 75 mls/hr IV . [id number] [facility] with Sodium Bicarb (1 Meq/ml) 150 ml Rx#:[id number] Immune Globulin ( 112.5 37.5 Gammagard) 20 gm In Empty Bag 1 bag @ Titrate 37.5 mls/hr IV .Q5H20M [facility] Rx #:[id number] Pentamidine 300 mg In 250 Dextrose 5% in Water 250 ml @ 125 mls/hr IVPB Q24H [facility] Rx#:[id number] Voriconazole 200 mg In 100 100 Sodium Chloride 0.9% 100 ml @ 125 mls/hr IVPB Q12H [facility] Rx#:[id number] Oral 922 250 200 Output: Urine 350 400 0 Other: Voiding Method Urinal Urinal Urinal # Voids 1 1 - Exam GENERAL EXAM: Alert, pale, weak, intermittent confusion, 50-year-old male, on 3 L of oxygen by nasal cannula. HEAD: Normocephalic/atraumatic. EYES: Normal reaction of pupils, equal size. Conjunctiva pink, sclera white. NOSE: Clear with pink turbinates. THROAT: No erythema or exudates. NECK: No masses, no JVD, no thyroid enlargement, no adenopathy. CHEST: No chest wall deformity. Symmetrical expansion. LUNGS: Equal air entry with scattered rhonchi heard throughout the lung lion bilaterally. CVS: Regular rate and rhythm, normal S1 and S2, no gallops, no murmurs, no rubs ABDOMEN: Soft, nontender. No hepatosplenomegaly, normal bowel sounds, no guarding or rigidity. EXTREMITIES: No clubbing,mild generalized edema, no cyanosis, 2+ pulses and upper and lower extremities. MUSCULOSKELETAL: Muscle strength and tone normal. SPINE: No scoliosis or deformity SKIN: No rashes CENTRAL NERVOUS SYSTEM: No focal deficits, tone is normal in all 4 extremities. PSYCHIATRIC: Alert and oriented -3. Appropriate affect. Intact judgment and insight. - Labs CBC & Chem 7: 02/16/21 05:56 02/16/21 05:56 Labs: Abnormal Lab Results - Last 24 Hours (Table) 02/16/21 02/16/21 Range/Units 05:56 05:56 WBC 2.8 L (3.8-10.6) k/uL RBC 1.92 L (4.30-5.90) m/uL Hgb 7.0 L (13.0-17.5) gm/dL Hct 21.0 L (39.0-53.0) % MCV 109.4 H (80.0-100.0) fL MCH 36.6 H (25.0-35.0) pg RDW 17.9 H (11.5-15.5) % Plt Count 90 L (150-450) k/uL Lymphocytes # (Manual) 0.39 L (1.0-4.8) k/uL Myelocytes # (Manual) 0.06 H (0) k/uL Plasma Cell # (Manual) 0.25 H (0) k/uL Nucleated RBCs 4 H (0-0) /100 WBC Macrocytosis Marked A Sodium 133 L (137-145) mmol/L Carbon Dioxide 16 L (22-30) mmol/L BUN 97 H (9-20) mg/dL Creatinine 3.20 H (0.66-1.25) mg/dL Glucose 229 H (74-99) mg/dL Calcium 7.4 L (8.4-10.2) mg/dL Microbiology - Last 24 Hours (Table) 02/10/21 10:23 Blood Culture - Final Blood No Growth after 144 hours Assessment and Plan Assessment: 1 Acute hypoxemic respiratory failure, possibly related to mild interstitial pneumonitis, and anemia, rule out possibility of infectious etiology. CT chest without contrast showed patchy, pulmonary interstitial infiltrates, nonspecific. Patient is currently on a combination of azithromycin and Rocephin, Acyclovir and Bactrim DS. Pro-calcitonin level was 0.31 Legionella urine antigen was negative, COVID-19 PCR was negative mycoplasma IgG and IgM were negative. ABX placed on cefepime and vancomycin. On acyclovir. The patient is receiving Bactrim for PCP prophylaxis 3 times a week. On 02/09/2021 he underwent a bronchoscopy and bronchial lavage. Subsequently, the patient had significant progression of the pulmonary infiltrates bilaterally and the patient worsening pneumonia. This was evident on the CAT scan of the chest. The chest x-ray from today still showing diffuse bilateral pulmonary infiltrates. He remains on 3 L of oxygen by nasal cannula. Antimicrobial coverage has been modified to include a combination of cefepime, vancomycin, acyclovir and pentamadine and IV voriconazole. COVID-19 testing is been negative. Consider underlying acute lung injury secondary to underlying malignancy/ARDS. Progress be cultures negative. Negative for malignancy. 2 History of multiple myeloma with recent progression, and patient is on Empliciti. Patient is being considered for initiation of CAR-T therapy 3 Right arm pain, asymmetric blood pressure, no evidence of subclavian steal syndrome, vascular surgery is following 4 Acute kidney injury, renal function is worsening and currently at 2.37 5 Possible tumor lysis syndrome 6 Hypercalcemia secondary to multiple myeloma, 7 Chronic anemia 8 Hypertension 9 Depression 10 Sinus tachycardia Plan: The patient was seen by Dr. Lebron Increased bicarbonate drip to 75 ML's per hour Add IV Solu-Medrol 60 mg every 6 hours Overall prognosis is poor Family is considering hospice DO NOT RESUSCITATE/DO NOT INTUBATE CODE STATUS I, the cosigning physician, performed a history & physical examination of the patient. Lungs sounds bilateral scattered rhonchi. Maintaining O2 saturations in the 90s on 3 L/m per nasal cannula. I discussed the assessment and plan of care with my nurse practitioner, Lissette Quinteros. I attest to the above note as dictated by her.
[2021-02-16 13:24] VITALS: BMI 34.2
[2021-02-16] MEDS: HEPARIN SODIUM,PORCINE/PF 5,000 UNIT/0.5 ML SYRINGE SQ SCH ×2 (13:54→20:35)
[2021-02-16] MEDS: DEXTROSE 5% IVPB SCH ×2 (13:55)
[2021-02-16] MEDS: PENTAMIDINE IVPB SCH ×2 (13:55)
[2021-02-16] MEDS: WATER IVPB SCH ×2 (13:55)
[2021-02-16] MEDS ORDERED: FUROSEMIDE 10 MG/ML 10 ML VIAL IV STA (18:27)
[2021-02-16] MEDS: MIRTAZAPINE 15 MG TAB PO SCH (20:35)
[2021-02-16] MEDS: ZOLPIDEM 5 MG TAB PO SCH (20:35)
[2021-02-16] MEDS: ESCITALOPRAM 20 MG TAB PO SCH (20:35)
[2021-02-16] MEDS: CEFEPIME 1 GM in SODIUM CHLORIDE 0.9% 50 ML IVPB SCH (20:35)
[2021-02-17] MEDS: DEXTROSE 5% IN WATER 1,000 ML with SODIUM BICARB (1 MEQ/ML) 150 ML IV SCH (03:18)
[2021-02-17] MEDS: methylPREDNISolone SOD SUCCI 125 MG/2 ML VIAL IV SCH (05:36)
[2021-02-17 05:44] LABS: Anisocytosis Slight; MCH 36.3 pg (25.0-35.0); MCV 106.7 fL (80.0-100.0); Macrocytosis Marked; Mean Platelet Volume 10.9; RBC 1.78 m/uL (4.30-5.90); RDW 18.3 % (11.5-15.5)
[2021-02-17 05:47] LABS: Platelet Count 78 k/uL (150-450)
[2021-02-17 05:50] LABS: HGB 6.5 gm/dL (13.0-17.5)
[2021-02-17 05:53] LABS: Calcium 6.9 mg/dL (8.4-10.2); Potassium 4.9 mmol/L (3.5-5.1)
[2021-02-17] MEDS: MIDODRINE 5 MG TAB PO SCH (06:16)
[2021-02-17] MEDS: HYDROcodone/APAP 10-325MG 1 EACH TAB PO PRN (06:16)
[2021-02-17] MEDS: PANTOPRAZOLE 40 MG TABLET PO SCH (06:16)
--- NOTE | 2021-02-17 08:19 | XR ---
EXAMINATION TYPE: XR chest 1V portable DATE OF EXAM: 02/17/2021 COMPARISON: Chest x-ray 02/15/2021 HISTORY: Dyspnea TECHNIQUE: Single frontal view of the chest is obtained. FINDINGS: There is no significant interval change. Bilateral airspace disease is again noted. Heart is enlarged. IMPRESSION: Cardiomegaly, correlate for pneumonia
[2021-02-17] MEDS: CHOLECALCIFEROL 25 MCG (1000 IU) TABLET PO SCH (08:45)
[2021-02-17] MEDS: ACYCLOVIR 200 MG CAP PO SCH (08:45)
[2021-02-17] MEDS: CEFEPIME 1 GM in SODIUM CHLORIDE 0.9% 50 ML IVPB SCH (08:45)
[2021-02-17] MEDS: METOPROLOL TARTRATE 25 MG TAB PO SCH (08:51)
[2021-02-17] MEDS: CYANOCOBALAMIN 500 MCG TAB PO SCH (08:51)
[2021-02-17] MEDS: HEPARIN SODIUM,PORCINE/PF 5,000 UNIT/0.5 ML SYRINGE SQ SCH (09:02)
[2021-02-17 09:04] VITALS: BP 100/57
--- NOTE | 2021-02-17 09:12 | P.PN ---
Subjective Patient is seen in follow-up for acute kidney injury. Renal function continues to worsen. Maintained on bicarb drip. Continues to complain of shortness of breath. Oral intake poor. Vital signs are stable. General: The patient appeared well nourished and normally developed. HEENT: Head exam is unremarkable. On Nasal cannula. LUNGS: Breath sounds decreased. HEART: Regular rate and rhythm. ABDOMEN: Soft, no distention. EXTREMITITES: No edema. Objective - Vital Signs Vital signs: Vital Signs Temp 98 F 02/17/21 02:00 Pulse 76 02/17/21 08:00 Resp 18 02/17/21 02:00 BP 100/57 02/17/21 08:00 Pulse Ox 97 02/17/21 08:00 Intake & Output 02/16/21 02/17/21 02/17/21 18:59 06:59 18:59 Intake Total 1425 1200 Output Total 200 35 Balance 1225 1165 Weight 96.2 kg 98.9 kg Intake: IV 1025 1200 Cefepime 1 gm In Sodium 50 Chloride 0.9% 50 ml @ 12. 5 mls/hr IVPB Q12HR [facility] Rx#:[id number] Cefepime 2 gm In Sodium 100 Chloride 0.9% 100 ml @ 25 mls/hr IVPB Q8HR [facility] Rx# :[id number] Dextrose 5% in Water 1, 575 1050 000 ml @ 75 mls/hr IV . [id number] [facility] with Sodium Bicarb (1 Meq/ml) 150 ml Rx#:[id number] Pentamidine 300 mg In 250 Dextrose 5% in Water 250 ml @ 125 mls/hr IVPB Q24H [facility] Rx#:[id number] Voriconazole 200 mg In 100 100 Sodium Chloride 0.9% 100 ml @ 125 mls/hr IVPB Q12H [facility] Rx#:[id number] Oral 400 Output: Urine 200 35 Other: Voiding Method Urinal External Catheter # Voids 1 - Labs CBC & Chem 7: 02/17/21 04:54 02/17/21 04:54 Labs: Abnormal Lab Results - Last 24 Hours (Table) 02/16/21 02/17/21 02/17/21 Range/Units 05:56 04:54 04:54 WBC 2.8 L 2.7 L (3.8-10.6) k/uL RBC 1.78 L (4.30-5.90) m/uL Hgb 6.5 L* (13.0-17.5) gm/dL Hct 19.0 L* (39.0-53.0) % MCV 106.7 H (80.0-100.0) fL MCH 36.3 H (25.0-35.0) pg RDW 18.3 H (11.5-15.5) % Plt Count 90 L (150-450) k/uL Lymphocytes # (Manual) 0.39 L (1.0-4.8) k/uL Myelocytes # (Manual) 0.06 H (0) k/uL Plasma Cell # (Manual) 0.25 H (0) k/uL Nucleated RBCs 4 H (0-0) /100 WBC Macrocytosis Marked A Sodium 131 L (137-145) mmol/L Chloride 94 L (98-107) mmol/L Carbon Dioxide 20 L (22-30) mmol/L BUN 132 H* (9-20) mg/dL Creatinine 4.34 H (0.66-1.25) mg/dL Glucose 266 H (74-99) mg/dL Calcium 6.9 L (8.4-10.2) mg/dL Crossmatch 02/17/21 Range/Units 06:08 WBC (3.8-10.6) k/uL RBC (4.30-5.90) m/uL Hgb (13.0-17.5) gm/dL Hct (39.0-53.0) % MCV (80.0-100.0) fL MCH (25.0-35.0) pg RDW (11.5-15.5) % Plt Count (150-450) k/uL Lymphocytes # (Manual) (1.0-4.8) k/uL Myelocytes # (Manual) (0) k/uL Plasma Cell # (Manual) (0) k/uL Nucleated RBCs (0-0) /100 WBC Macrocytosis Sodium (137-145) mmol/L Chloride (98-107) mmol/L Carbon Dioxide (22-30) mmol/L BUN (9-20) mg/dL Creatinine (0.66-1.25) mg/dL Glucose (74-99) mg/dL Calcium (8.4-10.2) mg/dL Crossmatch See Detail Microbiology - Last 24 Hours (Table) 02/10/21 10:23 Blood Culture - Final Blood No Growth after 144 hours Assessment and Plan Plan: Assessment: 1. Acute kidney injury secondary to ATN secondary to sepsis and diuresis. Renal function worsening. ?IVIG induced vs myeloma kidney. Creatinine 4.34 today. UA benign. Nonoliguric. 2. Pneumonia maintained on antibiotics as well as anti-fungal. Infectious disease following. 3. Volume overload. Improved with diuresis. 4. Metabolic acidosis secondary to acute kidney injury. Improving with bicarb drip. 5. Hyponatremia secondary to acute kidney injury. 6. History of multiple myeloma. Oncology following. s/p IVIG. On steroids. 7. Acute blood loss anemia. Plan: Maintain bicarb drip. No response in urine output despite IV Lasix. Scheduled to receive a unit of blood today. Follow-up urine eosinophils. Check phosphorus level. Avoid nephrotoxins. Continue to monitor renal function and urine output. Patient/family considering hospice. Prognosis guarded. Poor candidate for renal replacement therapy due to resistant myeloma. If treatment for multiple myeloma will be continued, then we will initiate renal replacement therapy has a supportive measure.
[2021-02-17 09:21] LABS: Band Neutrophils % 1 %; Eosinophils # (M) 0.03 k/uL (0-0.7); Lymphocytes # (M) 0.39 k/uL (1.0-4.8); Monocytes # (M) 0.23 k/uL (0-1.0); Neutrophils % (M) 65 %; Nucleated Red Blood Cells 3 /100 WBC (0-0); Plasma Cells # (M) 0.29 k/uL (0); Plasma Cells % 11 %; Total Cells Counted 200; WBC 2.6 k/uL (3.8-10.6)
[2021-02-17 09:22] LABS: Rouleaux Present
[2021-02-17 09:26] LABS: Poikilocytosis (M) Present; Spherocytes Present
--- NOTE | 2021-02-17 13:03 | P.PN ---
Subjective Progress Note Date: 02/17/21 Principal diagnosis: Acute hypoxic respiratory failure secondary to community-acquired pneumonia, patient is immunocompromised, history of multiple myeloma. And recently on chemotherapy. On 02/13/2021, the patient is being seen for a follow-up in the intensive care unit. The patient a chest x-ray to the ICU as the patient became progressively more short of breath and hypoxic. A computed tomography scan of the chest was conducted and showed worsening of the bilateral pulmonary pulses were noted earlier. Specifically, the CAT scan of the chest shows bilateral patchy grou ndglass pulmonary infiltrates that had progressed significantly. Note that this patient has been checked for COVID-19 on multiple occasions and came back all negative. The same time, bronchoscopy and bronchial lavage was done and the results are still pending for now. Meanwhile, we broadened antibiotic coverage because of interval worsening. The patient was started on voriconazole. The patient was also started on pentamadine regarding the possibility of an underlying PCP infection despite the fact that the patient was receiving Bactrim for PCP prophylaxis. He is still having episodes of fever. White cell count is at 3.0. Hemoglobin is at 7. He is less tachycardic compared to yesterday. His current antibiotic or antimicrobial coverage includes IV acyclovir, IV cefepime, voriconazole, IV pentamadine and vancomycin. His vancomycin trough is at 17.4. All of the cultures are negative thus far. Hemodynamically he is stable. His communicating. He is still at the liters of oxygen by nasal cannula and his pulse ox is currently at 97%. He remains on Decadron 28 mg by mouthq month, and the patient is also on bicarb infusion at the rate of 100 mL an hour. Repeat bicarb level is still pending for now as electrodes are still pending. Meanwhile, the patient is also being diuresis with Lasix 40 mg IV every 12 hours as the patient has significant third spacing and edema in the upper and lower extremities. The neck fluid balance has been +1.9 L over the past 24 hours. Patient was reevaluated today on 02/14/2021, remains in the ICU, on 3 L nasal cannula, with O2 saturations 95% on 3 L. IV fluids at KVO, patient is complaining of shortness of breath, he had recent bronchoscopy and BAL, cultures are pending, patient remains on multiple broad-spectrum antibiotics, he is also on antifungal therapy as well as anti-PCP therapy. So far the cultures from the BAL are negative. Chest x-ray continues to show worsening bilateral infiltrates. Labs today showed WBC count of 3.2 hemoglobin 7.2 platelets are 76,000. Electrolytes are normal BUN is 30 creatinine 1.66. Patient remains on acyclovir, cefepime, Gammagard, midodrine, pentamadine, Vfend, off vancomycin. His overall pulmonary status is marginal at best. The patient is seen today 02/16/2021 in follow-up in the intensive care unit. He is currently resting fairly comfortably in bed. He is still tachypneic. Still feelings of shortness of breath. Maintaining O2 saturations in the 90s on 3 L/m nasal cannula. Currently afebrile. White count 2.8. Hemoglobin 7.0. Platelet count 90,000. Sodium 133. Potassium 4.9. Creatinine 3.20. Glucose 229. Calcium 7.4. He remains on cefepime, voriconazole, pentamadine, acyclovir. Continued on Decadron 28 mg every Sunday. Currently on a bicarb drip at 75 ML's per hour. Heparin for DVT prophylaxis. He has been having episodes of confusion. Reevaluated today on 02/17/21, patient remains in the ICU, and basically he is about the same. Apparently the patient is going hospice and this will be started possibly today. Hospice has been consulted, and transfer plans to hospice facility in progress. WBC count today is 2.6 hemoglobin is down to 6.5 platelets are 78,000. Renal profile is worsening with a BUN of 132 creatinine 4.34. Patient is on bicarb drip, however since the patient is going for hospice, I believe we should possibly start discontinuing all the medications and proceed to comfort care measures Objective - Vital Signs Vital signs: Vital Signs Temp 98 F 02/17/21 02:00 Pulse 76 02/17/21 08:00 Resp 18 02/17/21 02:00 BP 100/57 02/17/21 08:00 Pulse Ox 97 02/17/21 08:00 Intake & Output 02/16/21 02/17/21 02/17/21 18:59 06:59 18:59 Intake Total 1425 1200 Output Total 200 35 Balance 1225 1165 Weight 96.2 kg 98.9 kg Intake: IV 1025 1200 Cefepime 1 gm In Sodium 50 Chloride 0.9% 50 ml @ 12. 5 mls/hr IVPB Q12HR [facility] Rx#:[id number] Cefepime 2 gm In Sodium 100 Chloride 0.9% 100 ml @ 25 mls/hr IVPB Q8HR [facility] Rx# :[id number] Dextrose 5% in Water 1, 575 1050 000 ml @ 75 mls/hr IV . [id number] [facility] with Sodium Bicarb (1 Meq/ml) 150 ml Rx#:[id number] Pentamidine 300 mg In 250 Dextrose 5% in Water 250 ml @ 125 mls/hr IVPB Q24H [facility] Rx#:[id number] Voriconazole 200 mg In 100 100 Sodium Chloride 0.9% 100 ml @ 125 mls/hr IVPB Q12H [facility] Rx#:[id number] Oral 400 Output: Urine 200 35 Other: Voiding Method Urinal External Catheter # Voids 1 - Exam GENERAL EXAM: 50-year-old white male pleasant, on 3 L nasal cannula, noted to be slightly dyspneic. HEAD: Normocephalic/atraumatic. Cushingoid looking HEENT: PERRLA, EOMI, nonicteric, no neck masses, no JVD, no stridor. CHEST: No chest wall deformity. Symmetrical expansion. LUNGS: Catheter rhonchi and crackles at the bases bilaterally. Especially on the right side CVS: Obese, Distant S1 and S2, no S3 gallop. No murmur. ABDOMEN: Soft, nontender. No hepatosplenomegaly, normal bowel sounds, no guarding or rigidity. EXTREMITIES: No clubbing positive edema no cyanosis. MUSCULOSKELETAL: Muscle strength and tone normal. SKIN: No rashes CENTRAL NERVOUS SYSTEM: Alert and oriented 3 in no gross focal deficits. PSYCHIATRIC: Normal mood, affect and normal mental status examination. - Labs CBC & Chem 7: 02/17/21 04:54 02/17/21 04:54 Labs: Abnormal Lab Results - Last 24 Hours (Table) 02/17/21 02/17/21 02/17/21 Range/Units 04:54 04:54 06:08 WBC 2.6 L (3.8-10.6) k/uL RBC 1.78 L (4.30-5.90) m/uL Hgb 6.5 L* (13.0-17.5) gm/dL Hct 19.0 L* (39.0-53.0) % MCV 106.7 H (80.0-100.0) fL MCH 36.3 H (25.0-35.0) pg RDW 18.3 H (11.5-15.5) % Plt Count 78 L (150-450) k/uL Lymphocytes # (Manual) 0.39 L (1.0-4.8) k/uL Plasma Cell # (Manual) 0.29 H (0) k/uL Nucleated RBCs 3 H (0-0) /100 WBC Macrocytosis Marked A Sodium 131 L (137-145) mmol/L Chloride 94 L (98-107) mmol/L Carbon Dioxide 20 L (22-30) mmol/L BUN 132 H* (9-20) mg/dL Creatinine 4.34 H (0.66-1.25) mg/dL Glucose 266 H (74-99) mg/dL Calcium 6.9 L (8.4-10.2) mg/dL Crossmatch See Detail 02/17/21 Range/Units 08:56 WBC (3.8-10.6) k/uL RBC (4.30-5.90) m/uL Hgb (13.0-17.5) gm/dL Hct (39.0-53.0) % MCV (80.0-100.0) fL MCH (25.0-35.0) pg RDW (11.5-15.5) % Plt Count (150-450) k/uL Lymphocytes # (Manual) (1.0-4.8) k/uL Plasma Cell # (Manual) (0) k/uL Nucleated RBCs (0-0) /100 WBC Macrocytosis Sodium (137-145) mmol/L Chloride (98-107) mmol/L Carbon Dioxide (22-30) mmol/L BUN (9-20) mg/dL Creatinine (0.66-1.25) mg/dL Glucose (74-99) mg/dL Calcium (8.4-10.2) mg/dL Crossmatch See Detail Microbiology - Last 24 Hours (Table) 02/10/21 10:23 Blood Culture - Final Blood No Growth after 144 hours Assessment and Plan Assessment: Impression: Acute hypoxic respiratory failure secondary to pneumonia in a patient who is immunocompromised, pneumonia could be gram-negative pneumonia could be fungal in nature, or could even be PCP related pneumonia. Chemotherapy induced pancytopenia History of multiple myeloma with recent progression Acute kidney injury Possible tumor lysis syndrome Hypercalcemia secondary to multiple myeloma. Chronic anemia Benign essential hypertension History of depression. Recommendation: Agree with hospice Proceed to comfort care measures Will follow when necessary. Time with Patient: Less than 30
[2021-02-17 13:31] VITALS: PULSE 73; RESP 19; TEMP 98.5
--- NOTE | 2021-02-17 14:15 | P.PN ---
Subjective Progress Note Date: 02/17/21 Principal diagnosis: Dyspnea, MM In f/u today pt is not arousing today to normal voice and touch. is at bedside. Objective - Vital Signs Vital signs: Vital Signs Temp 98.5 F 02/17/21 08:00 Pulse 73 02/17/21 08:00 Resp 19 02/17/21 08:00 BP 100/57 02/17/21 08:00 Pulse Ox 97 02/17/21 12:00 Intake & Output 02/16/21 02/17/21 02/17/21 18:59 06:59 18:59 Intake Total 1425 1200 Output Total 200 35 Balance 1225 1165 Weight 96.2 kg 98.9 kg Intake: IV 1025 1200 Cefepime 1 gm In Sodium 50 Chloride 0.9% 50 ml @ 12. 5 mls/hr IVPB Q12HR [facility] Rx#:[id number] Cefepime 2 gm In Sodium 100 Chloride 0.9% 100 ml @ 25 mls/hr IVPB Q8HR [facility] Rx# :[id number] Dextrose 5% in Water 1, 575 1050 000 ml @ 75 mls/hr IV . [id number] [facility] with Sodium Bicarb (1 Meq/ml) 150 ml Rx#:[id number] Pentamidine 300 mg In 250 Dextrose 5% in Water 250 ml @ 125 mls/hr IVPB Q24H [facility] Rx#:[id number] Voriconazole 200 mg In 100 100 Sodium Chloride 0.9% 100 ml @ 125 mls/hr IVPB Q12H [facility] Rx#:[id number] Oral 400 Output: Urine 200 35 Other: Voiding Method Urinal External Catheter # Voids 1 - Constitutional General appearance: Present: average body habitus, no acute distress - Respiratory Details: shallow resp - Cardiovascular Rhythm: regular (on monitor) - Gastrointestinal General gastrointestinal: Present: distended (visibly) - Psychiatric Psychiatric: Absent: A&O x's 3, appropriate affect, intact judgment & insight - Labs CBC & Chem 7: 02/17/21 04:54 02/17/21 04:54 Labs: Abnormal Lab Results - Last 24 Hours (Table) 02/17/21 02/17/21 02/17/21 Range/Units 04:54 04:54 06:08 WBC 2.6 L (3.8-10.6) k/uL RBC 1.78 L (4.30-5.90) m/uL Hgb 6.5 L* (13.0-17.5) gm/dL Hct 19.0 L* (39.0-53.0) % MCV 106.7 H (80.0-100.0) fL MCH 36.3 H (25.0-35.0) pg RDW 18.3 H (11.5-15.5) % Plt Count 78 L (150-450) k/uL Lymphocytes # (Manual) 0.39 L (1.0-4.8) k/uL Plasma Cell # (Manual) 0.29 H (0) k/uL Nucleated RBCs 3 H (0-0) /100 WBC Macrocytosis Marked A Sodium 131 L (137-145) mmol/L Chloride 94 L (98-107) mmol/L Carbon Dioxide 20 L (22-30) mmol/L BUN 132 H* (9-20) mg/dL Creatinine 4.34 H (0.66-1.25) mg/dL Glucose 266 H (74-99) mg/dL Calcium 6.9 L (8.4-10.2) mg/dL Crossmatch See Detail 02/17/21 Range/Units 08:56 WBC (3.8-10.6) k/uL RBC (4.30-5.90) m/uL Hgb (13.0-17.5) gm/dL Hct (39.0-53.0) % MCV (80.0-100.0) fL MCH (25.0-35.0) pg RDW (11.5-15.5) % Plt Count (150-450) k/uL Lymphocytes # (Manual) (1.0-4.8) k/uL Plasma Cell # (Manual) (0) k/uL Nucleated RBCs (0-0) /100 WBC Macrocytosis Sodium (137-145) mmol/L Chloride (98-107) mmol/L Carbon Dioxide (22-30) mmol/L BUN (9-20) mg/dL Creatinine (0.66-1.25) mg/dL Glucose (74-99) mg/dL Calcium (8.4-10.2) mg/dL Crossmatch See Detail Microbiology - Last 24 Hours (Table) 02/10/21 10:23 Blood Culture - Final Blood No Growth after 144 hours Assessment and Plan (1) Dyspnea Narrative/Plan: Pulmonary has performed bronch with washings, results reported revealing no infectious process. Last fever was 02/13. 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 IgG 151. Pt having fevers, no cultures have come back positive, he remains on broad spectrum abx, antiviral and antifungal and antiprotozal since . IVIG x doses completed Current Visit: Yes Status: Acute Priority: High Code(s): D80.1 - NONFAMILIAL HYPOGAMMAGLOBULINEMIA; C90.00 - MULTIPLE MYELOMA NOT HAVING ACHIEVED REMISSION SNOMED Code(s): 40648566052179646 (3) Acute kidney injury Narrative/Plan: Renal function cont to decline, Cr 3.2 today. Nephrology is following. Pt may be considered for dialysis if his respiratory status improves Current Visit: Yes Status: Acute Code(s): N17.9 - ACUTE KIDNEY FAILURE, UNSPECIFIED SNOMED Code(s): 60462221 (4) Atelectasis of both lungs Narrative/Plan: Concern for atypical infection in immuno-compromised pt, multiple lines of treatment and myeloma. Pt resp status is not improved very much from presenta tion. Awaiting results of bronch Current Visit: No Status: Acute Code(s): J98.11 - ATELECTASIS SNOMED Cod e(s): 02651533 (5) Hypercalcemia Narrative/Plan: 2/2 myeloma/malignancy. Pt received 60mg of aredia Current Visit: Yes Status: Resolved Priority: High Code(s): E83.52 - HYPERCALCEMIA SNOMED Code(s): 39475453 (6) [place] light chain myeloma Narrative/Plan: Pt was just initiated on new regimen 2 weeks ago. [place] light chains elevated but, regimen started about 3 weeks after last [place] light chain level. FKLC 88 in early Nov, down to 69. Pomalyst was held. Current Visit: Yes Status: Chronic Priority: High Code(s): C90.00 - MULTIPLE MYELOMA NOT HAVING ACHIEVED REMISSION SNOMED Code(s): 284135668 Plan: Pt was started on steroids yesterday as an attempt to get a response but, pt states she has talked with Critical Care this AM and there has not been any improvements. states that pt has not responded to her. Pt and had spoken prior and agreed to no code and that if pt did not show signs of improvement that he just wanted to stop disease treatment and pursue treatment of symptoms only, be kept comfortable. Case discussed with Receptionist/Telephone Operator and Nursing. GIP admit to hospice is recommended as pt life expectancy is felt to be less then 1 week. Attests: I have seen and examined pt, performed H&P, developed impression and plan of care. Discussed with dictator. Agree with documentation, documented as a scribe. Time with Patient: Greater than 30
--- NOTE | 2021-02-17 21:10 | P.PN ---
Subjective Progress Note Date: 02/15/21 Principal diagnosis: Bilateral interstitial pneumonia. With bilateral groundglass and interstitial infiltrates. Acute kidney injury secondary to hypercalcemia and hypotension, improving Multiple myeloma on chemotherapy Paroxysmal A. fib, currently converted to sinus rhythm This is a pleasant 50 years old male with multiple medical problems including multiple myeloma presents with acute kidney injury secondary to hypotension and hypercalcemia and currently is been followed closely by nephrology team while continued on normal saline at 75 mL/h. Also hematology/oncology team following the patient status post chemotherapy for hypercalcemia and status post pamidronate today. Pulmonary team and ID team for bilateral pneumonia, there is abnormal CT but clinically complaining only from exertional dyspnea. No fever or coughing. Patient currently current with ceftriaxone and Zithromax. Also patient is on home medication of acyclovir and Bactrim. Patient also continued on dexamethasone Other than that he is hemodynamically stable. No more fever. He is on room air. He has mild pancytopenia. Creatinine 1.5, calcium elevated at 10.8. Ejection fraction is 55-60%. CT of the chest showed patchy ground glass interstitial infiltrates., On 02/0402/08/2021 Patient still with exertional dyspnea. Very occasional dry coughing. No chest pain. No other specific complaints. He remains on room air and vitals are stable. No more fever. Labs are not concerning, he has stable pancytopenia, calcium is back to normal at 9. Creatinine improved significantly to 1.1. He has some mild evidence of acidemia with low carbon dioxide and patient was started on some sodium b icarbonate drip by nephrology team today. He remains on ceftriaxone and Zithromax. Dexamethasone which is a home medication. IV fluid. Several consultants on the case including pulmonary, ID, nephrology and oncology/hematology. 02/09/2021 Patient clinically the same with exertional dyspnea. His still mildly tachycardic and febrile and rest of vitals are stable. He still has pancytopenia with WBC 1.5, hemoglobin 6.9 and a platelet 59. Hematology team on the case. Creatinine 1.0. Chest x-ray showing worsening bilateral infiltrates, coronavirus detected is negative. We have reordered procalcitonin and proBNP. Patient is on antibiotics with ceftriaxone and Zithromax, acyclovir and Bactrim. ID team and pulmonary team on the case. 02/10/2021 Patient still with dyspnea. He had a fever of 101.8 today. And his chest x-ray looks worse. Currently he is on ceftriaxone and Zithromax. He has pancytopenia and his hemoglobin dropped to 6.4. He is getting 1 unit of blood transfusion. Creatinine normal. Anion gap is normal carbon dioxide slightly low. He remains on Zithromax and ceftriaxone and dexamethasone and sodium bicarb. We will discuss with infectious disease team about his antibiotic management. 02/11/2021 Patient is more tachypneic today. He denies chest pain. No other specific complaints. His vitals little worse, he still has a fever of 101.7. He is saturating 93% on room air. He is tachycardic around 110. Blood pressure is 99/69. Remains pancytopenic with WBC is 2.2, hemoglobin 7 after 1 unit of blood transfusion and platelets 56. Creatinine remains stable. Calcium was low. His antibiotics were adjusted to cefepime and IV vancomycin. Remains on dexam ethasone. IV fluids of sodium bicarb was stopped and switched to bicarb pedal and started on IV Lasix 40 mg twice daily. Also oncology on the case for chemotherapy. His procalcitonin is mildly worsened up to 0.34. Patient eroded by pulmonary team for bronchoscopy tomorrow 02/12/2021 Patient is continued to be dyspneic and multiple select unit. No chest pain or significant cough. He has exertional dyspnea and he needs help going to the restroom. He is tachypneic at 26, blood pressure is low normal for the last few days which looks his stable, currently 93/56. He is tachycardic at 114. And had fever yesterday. His CBC looks his stable with WBC 3.1, hemoglobin is improved 7.9 and platelets stable at 57. Creatinine 1.1, went up to 1.[address] of the chest without contrast showing bilateral patchy ground glass infiltrate which is progressed since admission. However patient covid test was checked 2 days ago that was negative, Patient remains on cefepime and IV vancomycin, voriconazole is been added. 13 considering the bronchoscopy. He is on sodium bicarbonate pills, IV fluid was stopped. Continued on IV Lasix 40 mg twice daily. Also he is on dexamethasone. Prognosis remains guarded Also he developed short period of A. fib, currently converted to sinus rhythm. 02/13/2021 Patient moved to the ICU today. He is status post bronchoscopy with bronchoalveolar lavage. After that his tachypnea is significantly improved however still significantly tachypneic especially if he tries to talk or move. His condition remains critical despite partial improvement after the bronch oscopy. He remains febrile with 102.7 today. He is tachycardic and tachypneic. Blood pressure is borderline and he was started on normal saline at 50 mL per hour plus metoprolol 50 mg twice a day and Lasix 40 mg twice a day. Labs basically looks stable with little fluctuation. His WBC is 3 today, hemoglobin 7 and platelets 61 with hematology on the case. He has multiple cultures are pending, please refer to order set. Chest x-ray showing persistent bilateral infiltrate. Patient remains on broad-spectrum antibiotics with cefepime, IV vancomycin and voriconazole. Also he is on steroids 02/14/2021 Patient is currently in the MICU. Complaining of shortness of breath. Requiring oxygen 3 L per nasal cannula. No complaints of chest pain. Patient has been afebrile. No nausea vomiting or abdominal pain or diarrhea. No headache or dizziness. Patient is on broad-spectrum antibiotics and antifungals. Status post bronchoscopy. BAL fluids showed no growth so far. Negative for malignant cells. Patient is pancytopenic due to multiple myeloma. WBC 3.2 hemoglobin 7.2 platelets 76 Sodium 134 potassium 4.2 chloride 10 to bicarb is 20 BUN 30 and creatinine 1.66, calcium 7.7 Patient is being continued on acyclovir, cefepime, voriconazole and also on dexamethasone. Heart rate is controlled with metoprolol 25 mg 3 times a day. Remains in sinus rhythm. 02/15/2021 Patient is currently sitting in the chair. Awake alert and oriented. Still having exertional shortness of breath with minimal activity on oxygen via nasal cannula at 3 L. Overnight patient was slightly agitated and pulled out IV line. Was given dose of sedatives overnight. Otherwise laboratory data showed creatinine increased to 2.37 and bicarb 15. Patient was started on bicarb drip. Nephrology is following. Patient was given a dose of IV Lasix 40 mg x 1. Chest x-ray showed bilateral airspace disease. No pneumothorax or pleural effusion. Patient is status post 2 units of PRBC during this admission. Otherwise patient is being continued on prophylactic antibiotics with acyclovir, voriconazole, pentamidine and also dexamethasone 28 mg weekly on Mondays. Discussed with his at bedside in detail. Pulmonary nephrology is on board. Current medications reviewed. Objective - Vital Signs Vital signs: Vital Signs Temp 97.9 F 02/15/21 12:00 Pulse 84 02/15/21 15:00 Resp 16 02/15/21 15:00 BP 102/68 02/15/21 15:00 Pulse Ox 84 L 02/15/21 15:00 Intake & Output 02/14/21 02/15/21 02/15/21 18:59 06:59 18:59 Intake Total 1510.043 421 9500 Output Total 650 200 350 Balance 860.682 41 0980 Weight 96.2 kg Intake: IV 865 120 590 0.9 40 Cefepime 2 gm In Sodium 100 Chloride 0.9% 100 ml @ 25 mls/hr IVPB Q8HR [facility] Rx# :[id number] Dextrose 5% in Water 1, 200 000 ml @ 50 mls/hr IV . Q23H [facility] with Sodium Bicarb (1 Meq/ml) 150 ml Rx#:[id number] Immune Globulin ( 200 Gammagard) 20 gm In Empty Bag 1 bag @ Titrate 37.5 mls/hr IV .Q5H20M ONE Rx #:[id number] Pentamidine 300 mg In 250 250 Dextrose 5% in Water 250 ml @ 125 mls/hr IVPB Q24H [facility] Rx#:[id number] Sodium Chloride 0.9% 1, 215 120 000 ml @ 50 mls/hr IV . Q20H [facility] Rx#:[id number] Voriconazole 200 mg In 100 100 Sodium Chloride 0.9% 100 ml @ 125 mls/hr IVPB Q12H [facility] Rx#:[id number] Intake, IV Titration 145.625 Amount Immune Globulin ( 145.625 Gammagard) 20 gm In Empty Bag 1 bag @ Titrate 37.5 mls/hr IV .Q5H20M [facility] Rx #:[id number] Oral 500 150 922 Output: Urine 650 200 350 Other: Voiding Method Urinal Urinal Urinal # Voids 1 1 # Bowel Movements 1 - Exam - Exam GENERAL: The patient is alert and oriented x3, not in any acute distress. Well developed, well nourished. HEENT: Pupils are round and equally reacting to light. EOMI. No scleral icterus. No conjunctival pallor. Normocephalic, atraumatic. No pharyngeal erythema. No thyromegaly. CARDIOVASCULAR: S1 and S2 present. No murmurs, rubs, or gallops. PULMONARY: Chest is clear to auscultation, no wheezing,, basilar crackles.diminished basilar sounds/ ABDOMEN: Soft, nontender, nondistended, normoactive bowel sounds. No palpable organomegaly. MUSCULOSKELETAL: No joint swelling or deformity. EXTREMITIES: No cyanosis, clubbing, or pedal edema. NEUROLOGICAL: Gross neurological examination did not reveal any focal deficits. SKIN: No rashes. no petechiae. - Labs CBC & Chem 7: 02/17/21 04:54 02/17/21 04:54 Labs: Abnormal Lab Results - Last 24 Hours (Table) 02/11/21 02/15/21 02/15/21 Range/Units 06:21 04:45 04:45 WBC 3.0 L (3.8-10.6) k/uL RBC 1.95 L (4.30-5.90) m/uL Hgb 7.1 L (13.0-17.5) gm/dL Hct 21.6 L (39.0-53.0) % MCV 111.0 H (80.0-100.0) fL MCH 36.5 H (25.0-35.0) pg RDW 17.9 H (11.5-15.5) % Plt Count 79 L (150-450) k/uL Lymphocytes # (Manual) 0.39 L (1.0-4.8) k/uL Plasma Cell # (Manual) 0.57 H (0) k/uL Nucleated RBCs 1 H (0-0) /100 WBC Macrocytosis Marked A Sodium 135 L (137-145) mmol/L Carbon Dioxide 15 L (22-30) mmol/L BUN 58 H (9-20) mg/dL Creatinine 2.37 H (0.66-1.25) mg/dL Glucose 216 H (74-99) mg/dL Calcium 7.7 L (8.4-10.2) mg/dL Free [place] LC, Quant 69.01 H (0.33-1.94) mg/dL Microbiology - Last 24 Hours (Table) 02/10/21 10:23 Blood Culture - Preliminary Blood No Growth after 120 hours Assessment and Plan Assessment: Bilateral interstitial pneumonia. With bilateral groundglass and interstitial infiltrates. Status post bronchoscopy. BAL cultures negative so far. Acute kidney injury secondary to hypercalcemia and hypotension, improving Multiple myeloma on chemotherapy Paroxysmal A. fib, currently converted to sinus rhythm Hypercalcemia and hyperparathyroidism status post pamidronate dose. Pancytopenia secondary to multiple myeloma and medication DVT prophylaxis with heparin subcu Plan: This is a pleasant 50 years old male who presents with pneumonia, PAUL and hypercalcemia and multiple myeloma Continue with broad-spectrum antibiotics. Infectious disease team, currently on cefepime and Voriconazole added. ID and pulmonary team on the case. Follow-up Renal function closely. Continue chemotherapy per hematology/oncology team will follow the patient. Labs and medication were reviewed. Monitor lytes and vitals. DVT and GI prophylaxis. DVT prophylaxis: Subcutaneous heparin GI Prophylaxis: ppi Prognosis is guarded Time with Patient: Greater than 30
--- NOTE | 2021-02-17 21:13 | P.PN ---
Subjective Progress Note Date: 02/16/21 Principal diagnosis: Bilateral interstitial pneumonia. With bilateral groundglass and interstitial infiltrates. Acute kidney injury secondary to hypercalcemia and hypotension, improving Multiple myeloma on chemotherapy Paroxysmal A. fib, currently converted to sinus rhythm This is a pleasant 50 years old male with multiple medical problems including multiple myeloma presents with acute kidney injury secondary to hypotension and hypercalcemia and currently is been followed closely by nephrology team while continued on normal saline at 75 mL/h. Also hematology/oncology team following the patient status post chemotherapy for hypercalcemia and status post pamidronate today. Pulmonary team and ID team for bilateral pneumonia, there is abnormal CT but clinically complaining only from exertional dyspnea. No fever or coughing. Patient currently current with ceftriaxone and Zithromax. Also patient is on home medication of acyclovir and Bactrim. Patient also continued on dexamethasone Other than that he is hemodynamically stable. No more fever. He is on room air. He has mild pancytopenia. Creatinine 1.5, calcium elevated at 10.8. Ejection fraction is 55-60%. CT of the chest showed patchy ground glass interstitial infiltrates., On 02/0402/08/2021 Patient still with exertional dyspnea. Very occasional dry coughing. No chest pain. No other specific complaints. He remains on room air and vitals are stable. No more fever. Labs are not concerning, he has stable pancytopenia, calcium is back to normal at 9. Creatinine improved significantly to 1.1. He has some mild evidence of acidemia with low carbon dioxide and patient was started on some sodium b icarbonate drip by nephrology team today. He remains on ceftriaxone and Zithromax. Dexamethasone which is a home medication. IV fluid. Several consultants on the case including pulmonary, ID, nephrology and oncology/hematology. 02/09/2021 Patient clinically the same with exertional dyspnea. His still mildly tachycardic and febrile and rest of vitals are stable. He still has pancytopenia with WBC 1.5, hemoglobin 6.9 and a platelet 59. Hematology team on the case. Creatinine 1.0. Chest x-ray showing worsening bilateral infiltrates, coronavirus detected is negative. We have reordered procalcitonin and proBNP. Patient is on antibiotics with ceftriaxone and Zithromax, acyclovir and Bactrim. ID team and pulmonary team on the case. 02/10/2021 Patient still with dyspnea. He had a fever of 101.8 today. And his chest x-ray looks worse. Currently he is on ceftriaxone and Zithromax. He has pancytopenia and his hemoglobin dropped to 6.4. He is getting 1 unit of blood transfusion. Creatinine normal. Anion gap is normal carbon dioxide slightly low. He remains on Zithromax and ceftriaxone and dexamethasone and sodium bicarb. We will discuss with infectious disease team about his antibiotic management. 02/11/2021 Patient is more tachypneic today. He denies chest pain. No other specific complaints. His vitals little worse, he still has a fever of 101.7. He is saturating 93% on room air. He is tachycardic around 110. Blood pressure is 99/69. Remains pancytopenic with WBC is 2.2, hemoglobin 7 after 1 unit of blood transfusion and platelets 56. Creatinine remains stable. Calcium was low. His antibiotics were adjusted to cefepime and IV vancomycin. Remains on dexam ethasone. IV fluids of sodium bicarb was stopped and switched to bicarb pedal and started on IV Lasix 40 mg twice daily. Also oncology on the case for chemotherapy. His procalcitonin is mildly worsened up to 0.34. Patient eroded by pulmonary team for bronchoscopy tomorrow 02/12/2021 Patient is continued to be dyspneic and multiple select unit. No chest pain or significant cough. He has exertional dyspnea and he needs help going to the restroom. He is tachypneic at 26, blood pressure is low normal for the last few days which looks his stable, currently 93/56. He is tachycardic at 114. And had fever yesterday. His CBC looks his stable with WBC 3.1, hemoglobin is improved 7.9 and platelets stable at 57. Creatinine 1.1, went up to 1.[address] of the chest without contrast showing bilateral patchy ground glass infiltrate which is progressed since admission. However patient covid test was checked 2 days ago that was negative, Patient remains on cefepime and IV vancomycin, voriconazole is been added. 13 considering the bronchoscopy. He is on sodium bicarbonate pills, IV fluid was stopped. Continued on IV Lasix 40 mg twice daily. Also he is on dexamethasone. Prognosis remains guarded Also he developed short period of A. fib, currently converted to sinus rhythm. 02/13/2021 Patient moved to the ICU today. He is status post bronchoscopy with bronchoalveolar lavage. After that his tachypnea is significantly improved however still significantly tachypneic especially if he tries to talk or move. His condition remains critical despite partial improvement after the bronch oscopy. He remains febrile with 102.7 today. He is tachycardic and tachypneic. Blood pressure is borderline and he was started on normal saline at 50 mL per hour plus metoprolol 50 mg twice a day and Lasix 40 mg twice a day. Labs basically looks stable with little fluctuation. His WBC is 3 today, hemoglobin 7 and platelets 61 with hematology on the case. He has multiple cultures are pending, please refer to order set. Chest x-ray showing persistent bilateral infiltrate. Patient remains on broad-spectrum antibiotics with cefepime, IV vancomycin and voriconazole. Also he is on steroids 02/14/2021 Patient is currently in the MICU. Complaining of shortness of breath. Requiring oxygen 3 L per nasal cannula. No complaints of chest pain. Patient has been afebrile. No nausea vomiting or abdominal pain or diarrhea. No headache or dizziness. Patient is on broad-spectrum antibiotics and antifungals. Status post bronchoscopy. BAL fluids showed no growth so far. Negative for malignant cells. Patient is pancytopenic due to multiple myeloma. WBC 3.2 hemoglobin 7.2 platelets 76 Sodium 134 potassium 4.2 chloride 10 to bicarb is 20 BUN 30 and creatinine 1.66, calcium 7.7 Patient is being continued on acyclovir, cefepime, voriconazole and also on dexamethasone. Heart rate is controlled with metoprolol 25 mg 3 times a day. Remains in sinus rhythm. 02/15/2021 Patient is currently sitting in the chair. Awake alert and oriented. Still having exertional shortness of breath with minimal activity on oxygen via nasal cannula at 3 L. Overnight patient was slightly agitated and pulled out IV line. Was given dose of sedatives overnight. Otherwise laboratory data showed creatinine increased to 2.37 and bicarb 15. Patient was started on bicarb drip. Nephrology is following. Patient was given a dose of IV Lasix 40 mg x 1. Chest x-ray showed bilateral airspace disease. No pneumothorax or pleural effusion. Patient is status post 2 units of PRBC during this admission. Otherwise patient is being continued on prophylactic antibiotics with acyclovir, voriconazole, pentamidine and also dexamethasone 28 mg weekly on Mondays. Discussed with his at bedside in detail. Pulmonary nephrology is on board. 02/16/2021 Patient is resting in the bed. Awake alert oriented. Still feels very weak and short of breath and confused at times. Requiring oxygen at 3 L and saturating at 93%. Patient has been afebrile. BUN went up to 97 creatinine 3.2 today. Blood sugar is 229 WBC 2.8 hemoglobin 7.0 and platelets 90 Patient is being current bicarb drip and also on broad-spectrum antibiotics including cefepime and voriconazole, pentamidine and acyclovir. Also on Decadron q. weekly. Patient's family is at bedside. Current medications reviewed. Objective - Vital Signs Vital signs: Vital Signs Temp 97.9 F 02/16/21 14:00 Pulse 93 02/16/21 14:00 Resp 14 02/16/21 14:00 BP 93/84 02/16/21 14:00 Pulse Ox 94 L 02/16/21 15:00 Intake & Output 02/16/21 02/16/21 02/17/21 06:59 18:59 06:59 Intake Total 1087.5 1425 Output Total 400 200 Balance 687.5 1225 Weight 96.2 kg Intake: IV 837.5 1025 Cefepime 2 gm In Sodium 100 100 Chloride 0.9% 100 ml @ 25 mls/hr IVPB Q8HR [facility] Rx# :[id number] Dextrose 5% in Water 1, 600 575 000 ml @ 75 mls/hr IV . [id number] [facility] with Sodium Bicarb (1 Meq/ml) 150 ml Rx#:[id number] Immune Globulin ( 37.5 Gammagard) 20 gm In Empty Bag 1 bag @ Titrate 37.5 mls/hr IV .Q5H20M [facility] Rx #:[id number] Pentamidine 300 mg In 250 Dextrose 5% in Water 250 ml @ 125 mls/hr IVPB Q24H [facility] Rx#:[id number] Voriconazole 200 mg In 100 100 Sodium Chloride 0.9% 100 ml @ 125 mls/hr IVPB Q12H [facility] Rx#:[id number] Oral 250 400 Output: Urine 400 200 Other: Voiding Method Urinal Urinal # Voids 1 1 - Exam - Exam GENERAL: The patient is alert and oriented x2-3, not in any acute distress. Well developed, well nourished. Confused and lethargic. HEENT: Pupils are round and equally reacting to light. EOMI. No scleral icterus. No conjunctival pallor. Normocephalic, atraumatic. No pharyngeal erythema. No thyromegaly. CARDIOVASCULAR: S1 and S2 present. No murmurs, rubs, or gallops. PULMONARY: Chest is clear to auscultation, no wheezing,, basilar crackles.diminished basilar sounds/ ABDOMEN: Soft, nontender, nondistended, normoactive bowel sounds. No palpable organomegaly. MUSCULOSKELETAL: No joint swelling or deformity. EXTREMITIES: No cyanosis, clubbing, or pedal edema. NEUROLOGICAL: Gross neurological examination did not reveal any focal deficits. SKIN: No rashes. no petechiae. - Labs CBC & Chem 7: 02/17/21 04:54 02/17/21 04:54 Labs: Abnormal Lab Results - Last 24 Hours (Table) 02/16/21 02/16/21 Range/Units 05:56 05:56 WBC 2.8 L (3.8-10.6) k/uL RBC 1.92 L (4.30-5.90) m/uL Hgb 7.0 L (13.0-17.5) gm/dL Hct 21.0 L (39.0-53.0) % MCV 109.4 H (80.0-100.0) fL MCH 36.6 H (25.0-35.0) pg RDW 17.9 H (11.5-15.5) % Plt Count 90 L (150-450) k/uL Lymphocytes # (Manual) 0.39 L (1.0-4.8) k/uL Myelocytes # (Manual) 0.06 H (0) k/uL Plasma Cell # (Manual) 0.25 H (0) k/uL Nucleated RBCs 4 H (0-0) /100 WBC Macrocytosis Marked A Sodium 133 L (137-145) mmol/L Carbon Dioxide 16 L (22-30) mmol/L BUN 97 H (9-20) mg/dL Creatinine 3.20 H (0.66-1.25) mg/dL Glucose 229 H (74-99) mg/dL Calcium 7.4 L (8.4-10.2) mg/dL Microbiology - Last 24 Hours (Table) 02/10/21 10:23 Blood Culture - Final Blood No Growth after 144 hours Assessment and Plan Assessment: Bilateral interstitial pneumonia. With bilateral groundglass and interstitial infiltrates. Status post bronchoscopy. BAL cultures negative so far. Acute kidney injury secondary to hypercalcemia and hypotension, improving Metabolic encephalopathy Multiple myeloma on chemotherapy Paroxysmal A. fib, currently converted to sinus rhythm Hypercalcemia and hyperparathyroidism status post pamidronate dose. Pancytopenia secondary to multiple myeloma and medication DVT prophylaxis with heparin subcu Plan: This is a pleasant 50 years old male who presents with pneumonia, PAUL and hypercalcemia and multiple myeloma Continue with broad-spectrum antibiotics. Infectious disease team, currently on cefepime and Voriconazole added. ID and pulmonary team on the case. Follow-up Renal function closely.Patient is encephalopathic and prognosis guard ed at this time. Family is considering hospice care. Labs and medication were reviewed. Monitor lytes and vitals. DVT and GI prophylaxis. DVT prophylaxis: Subcutaneous heparin GI Prophylaxis: ppi Prognosis is guarded Time with Patient: Greater than 30
--- NOTE | 2021-02-17 21:16 | P.PN ---
Subjective Progress Note Date: 02/17/21 Principal diagnosis: Bilateral interstitial pneumonia. With bilateral groundglass and interstitial infiltrates. Acute kidney injury secondary to hypercalcemia and hypotension, improving Multiple myeloma on chemotherapy Paroxysmal A. fib, currently converted to sinus rhythm This is a pleasant 50 years old male with multiple medical problems including multiple myeloma presents with acute kidney injury secondary to hypotension and hypercalcemia and currently is been followed closely by nephrology team while continued on normal saline at 75 mL/h. Also hematology/oncology team following the patient status post chemotherapy for hypercalcemia and status post pamidronate today. Pulmonary team and ID team for bilateral pneumonia, there is abnormal CT but clinically complaining only from exertional dyspnea. No fever or coughing. Patient currently current with ceftriaxone and Zithromax. Also patient is on home medication of acyclovir and Bactrim. Patient also continued on dexamethasone Other than that he is hemodynamically stable. No more fever. He is on room air. He has mild pancytopenia. Creatinine 1.5, calcium elevated at 10.8. Ejection fraction is 55-60%. CT of the chest showed patchy ground glass interstitial infiltrates., On 02/0402/08/2021 Patient still with exertional dyspnea. Very occasional dry coughing. No chest pain. No other specific complaints. He remains on room air and vitals are stable. No more fever. Labs are not concerning, he has stable pancytopenia, calcium is back to normal at 9. Creatinine improved significantly to 1.1. He has some mild evidence of acidemia with low carbon dioxide and patient was started on some sodium b icarbonate drip by nephrology team today. He remains on ceftriaxone and Zithromax. Dexamethasone which is a home medication. IV fluid. Several consultants on the case including pulmonary, ID, nephrology and oncology/hematology. 02/09/2021 Patient clinically the same with exertional dyspnea. His still mildly tachycardic and febrile and rest of vitals are stable. He still has pancytopenia with WBC 1.5, hemoglobin 6.9 and a platelet 59. Hematology team on the case. Creatinine 1.0. Chest x-ray showing worsening bilateral infiltrates, coronavirus detected is negative. We have reordered procalcitonin and proBNP. Patient is on antibiotics with ceftriaxone and Zithromax, acyclovir and Bactrim. ID team and pulmonary team on the case. 02/10/2021 Patient still with dyspnea. He had a fever of 101.8 today. And his chest x-ray looks worse. Currently he is on ceftriaxone and Zithromax. He has pancytopenia and his hemoglobin dropped to 6.4. He is getting 1 unit of blood transfusion. Creatinine normal. Anion gap is normal carbon dioxide slightly low. He remains on Zithromax and ceftriaxone and dexamethasone and sodium bicarb. We will discuss with infectious disease team about his antibiotic management. 02/11/2021 Patient is more tachypneic today. He denies chest pain. No other specific complaints. His vitals little worse, he still has a fever of 101.7. He is saturating 93% on room air. He is tachycardic around 110. Blood pressure is 99/69. Remains pancytopenic with WBC is 2.2, hemoglobin 7 after 1 unit of blood transfusion and platelets 56. Creatinine remains stable. Calcium was low. His antibiotics were adjusted to cefepime and IV vancomycin. Remains on dexam ethasone. IV fluids of sodium bicarb was stopped and switched to bicarb pedal and started on IV Lasix 40 mg twice daily. Also oncology on the case for chemotherapy. His procalcitonin is mildly worsened up to 0.34. Patient eroded by pulmonary team for bronchoscopy tomorrow 02/12/2021 Patient is continued to be dyspneic and multiple select unit. No chest pain or significant cough. He has exertional dyspnea and he needs help going to the restroom. He is tachypneic at 26, blood pressure is low normal for the last few days which looks his stable, currently 93/56. He is tachycardic at 114. And had fever yesterday. His CBC looks his stable with WBC 3.1, hemoglobin is improved 7.9 and platelets stable at 57. Creatinine 1.1, went up to 1.[address] of the chest without contrast showing bilateral patchy ground glass infiltrate which is progressed since admission. However patient covid test was checked 2 days ago that was negative, Patient remains on cefepime and IV vancomycin, voriconazole is been added. 13 considering the bronchoscopy. He is on sodium bicarbonate pills, IV fluid was stopped. Continued on IV Lasix 40 mg twice daily. Also he is on dexamethasone. Prognosis remains guarded Also he developed short period of A. fib, currently converted to sinus rhythm. 02/13/2021 Patient moved to the ICU today. He is status post bronchoscopy with bronchoalveolar lavage. After that his tachypnea is significantly improved however still significantly tachypneic especially if he tries to talk or move. His condition remains critical despite partial improvement after the bronch oscopy. He remains febrile with 102.7 today. He is tachycardic and tachypneic. Blood pressure is borderline and he was started on normal saline at 50 mL per hour plus metoprolol 50 mg twice a day and Lasix 40 mg twice a day. Labs basically looks stable with little fluctuation. His WBC is 3 today, hemoglobin 7 and platelets 61 with hematology on the case. He has multiple cultures are pending, please refer to order set. Chest x-ray showing persistent bilateral infiltrate. Patient remains on broad-spectrum antibiotics with cefepime, IV vancomycin and voriconazole. Also he is on steroids 02/14/2021 Patient is currently in the MICU. Complaining of shortness of breath. Requiring oxygen 3 L per nasal cannula. No complaints of chest pain. Patient has been afebrile. No nausea vomiting or abdominal pain or diarrhea. No headache or dizziness. Patient is on broad-spectrum antibiotics and antifungals. Status post bronchoscopy. BAL fluids showed no growth so far. Negative for malignant cells. Patient is pancytopenic due to multiple myeloma. WBC 3.2 hemoglobin 7.2 platelets 76 Sodium 134 potassium 4.2 chloride 10 to bicarb is 20 BUN 30 and creatinine 1.66, calcium 7.7 Patient is being continued on acyclovir, cefepime, voriconazole and also on dexamethasone. Heart rate is controlled with metoprolol 25 mg 3 times a day. Remains in sinus rhythm. 02/15/2021 Patient is currently sitting in the chair. Awake alert and oriented. Still having exertional shortness of breath with minimal activity on oxygen via nasal cannula at 3 L. Overnight patient was slightly agitated and pulled out IV line. Was given dose of sedatives overnight. Otherwise laboratory data showed creatinine increased to 2.37 and bicarb 15. Patient was started on bicarb drip. Nephrology is following. Patient was given a dose of IV Lasix 40 mg x 1. Chest x-ray showed bilateral airspace disease. No pneumothorax or pleural effusion. Patient is status post 2 units of PRBC during this admission. Otherwise patient is being continued on prophylactic antibiotics with acyclovir, voriconazole, pentamidine and also dexamethasone 28 mg weekly on Mondays. Discussed with his at bedside in detail. Pulmonary nephrology is on board. 02/16/2021 Patient is resting in the bed. Awake alert oriented. Still feels very weak and short of breath and confused at times. Requiring oxygen at 3 L and saturating at 93%. Patient has been afebrile. BUN went up to 97 creatinine 3.2 today. Blood sugar is 229 WBC 2.8 hemoglobin 7.0 and platelets 90 Patient is being current bicarb drip and also on broad-spectrum antibiotics including cefepime and voriconazole, pentamidine and acyclovir. Also on Decadron q. weekly. Patient's family is at bedside. 02/17/2021 Patient in the MICU. Patient is more confused and did not respond to verbal stimuli. Family discussed with the hospitalist. Spoke to hospice care today. Otherwise laboratory data showed WBC 2.6 hemoglobin 6.5 and platelets 78 Sodium 131 potassium 4.9 chloride 94 bicarb 20 BUN 132 and creatinine went up to 4.34 Patient is being transferred to hospice care today. Discussed with his and daughter at bedside. Current medications reviewed. Objective - Vital Signs Vital signs: Vital Signs Temp 98.5 F 02/17/21 08:00 Pulse 73 02/17/21 08:00 Resp 19 02/17/21 08:00 BP 100/57 02/17/21 08:00 Pulse Ox 97 02/17/21 12:00 Intake & Output 02/17/21 02/17/21 02/18/21 06:59 18:59 06:59 Intake Total 1200 Output Total 35 Balance 1165 Weight 98.9 kg Intake: IV 1200 Cefepime 1 gm In Sodium 50 Chloride 0.9% 50 ml @ 12. 5 mls/hr IVPB Q12HR [facility] Rx#:[id number] Dextrose 5% in Water 1, 1050 000 ml @ 75 mls/hr IV . [id number] [facility] with Sodium Bicarb (1 Meq/ml) 150 ml Rx#:[id number] Voriconazole 200 mg In 100 Sodium Chloride 0.9% 100 ml @ 125 mls/hr IVPB Q12H [facility] Rx#:[id number] Output: Urine 35 Other: Voiding Method External Catheter - Exam - Exam GENERAL: The patient is alert and oriented x0, not in any acute distress. Well developed, well nourished. Confused and lethargic. HEENT: Pupils are round and equally reacting to light. EOMI. No scleral icterus. No conjunctival pallor. Normocephalic, atraumatic. No pharyngeal erythema. No thyromegaly. CARDIOVASCULAR: S1 and S2 present. No murmurs, rubs, or gallops. PULMONARY: Chest is clear to auscultation, no wheezing,, basilar crackles.diminished basilar sounds/ ABDOMEN: Soft, nontender, nondistended, normoactive bowel sounds. No palpable organomegaly. MUSCULOSKELETAL: No joint swelling or deformity. EXTREMITIES: No cyanosis, clubbing, or pedal edema. NEUROLOGICAL: Gross neurological examination did not reveal any focal deficits. SKIN: No rashes. no petechiae. - Labs CBC & Chem 7: 02/17/21 04:54 02/17/21 04:54 Labs: Abnormal Lab Results - Last 24 Hours (Table) 02/17/21 02/17/21 02/17/21 Range/Units 04:54 04:54 06:08 WBC 2.6 L (3.8-10.6) k/uL RBC 1.78 L (4.30-5.90) m/uL Hgb 6.5 L* (13.0-17.5) gm/dL Hct 19.0 L* (39.0-53.0) % MCV 106.7 H (80.0-100.0) fL MCH 36.3 H (25.0-35.0) pg RDW 18.3 H (11.5-15.5) % Plt Count 78 L (150-450) k/uL Lymphocytes # (Manual) 0.39 L (1.0-4.8) k/uL Plasma Cell # (Manual) 0.29 H (0) k/uL Nucleated RBCs 3 H (0-0) /100 WBC Macrocytosis Marked A Sodium 131 L (137-145) mmol/L Chloride 94 L (98-107) mmol/L Carbon Dioxide 20 L (22-30) mmol/L BUN 132 H* (9-20) mg/dL Creatinine 4.34 H (0.66-1.25) mg/dL Glucose 266 H (74-99) mg/dL Calcium 6.9 L (8.4-10.2) mg/dL Crossmatch See Detail 02/17/21 Range/Units 08:56 WBC (3.8-10.6) k/uL RBC (4.30-5.90) m/uL Hgb (13.0-17.5) gm/dL Hct (39.0-53.0) % MCV (80.0-100.0) fL MCH (25.0-35.0) pg RDW (11.5-15.5) % Plt Count (150-450) k/uL Lymphocytes # (Manual) (1.0-4.8) k/uL Plasma Cell # (Manual) (0) k/uL Nucleated RBCs (0-0) /100 WBC Macrocytosis Sodium (137-145) mmol/L Chloride (98-107) mmol/L Carbon Dioxide (22-30) mmol/L BUN (9-20) mg/dL Creatinine (0.66-1.25) mg/dL Glucose (74-99) mg/dL Calcium (8.4-10.2) mg/dL Crossmatch See Detail Assessment and Plan Assessment: Bilateral interstitial pneumonia. With bilateral groundglass and interstitial infiltrates. Status post bronchoscopy. BAL cultures negative so far. Acute kidney injury secondary to hypercalcemia and hypotension, improving Metabolic encephalopathy Multiple myeloma on chemotherapy Paroxysmal A. fib, currently converted to sinus rhythm Hypercalcemia and hyperparathyroidism status post pamidronate dose. Pancytopenia secondary to multiple myeloma and medication DVT prophylaxis with heparin subcu Plan: This is a pleasant 50 years old male who presents with pneumonia, PAUL and hypercalcemia and multiple myeloma Continued with broad-spectrum antibiotics. Infectious disease team, currently on cefepime and Voriconazole added. Patient was seen by hematology and pulmonary team on the case. Follow-up Renal function closely.Patient is encephalopathic and prognosis guarded at this time. Family is considering hospice care. Labs and medication were reviewed. Monitor lytes and vitals. DVT and GI prophylaxis. DVT prophylaxis: Subcutaneous heparin GI Prophylaxis: ppi Prognosis is poor.
== END 2021-02-17 14:10 | disposition hospice, inpatient (51) | DRG 871 ==
LOC: EC 08:48 → 4SSUR 12:57 → 5NMEDONC 15:33 → 3SCARD 02-11 13:57 → 2SICU 02-12 17:03
PROVIDERS: ADMIT Internal Medicine; ATTEND Internal Medicine
PROC: 30233N1 Transfusion of Nonautologous Red Blood Cells into Peripheral Vein, Percutaneous Approach (ICD-10-PCS; 2021-02-10)
PROC: 0B9G8ZX Drainage of Left Upper Lung Lobe, Via Natural or Artificial Opening Endoscopic, Diagnostic (ICD-10-PCS; principal; 2021-02-11 08:05)
PROC: 0B9H8ZX Drainage of Lung Lingula, Via Natural or Artificial Opening Endoscopic, Diagnostic (ICD-10-PCS; principal; 2021-02-11 08:05)
DX: A41.9 Sepsis, unspecified organism (principal); J18.9 Pneumonia, unspecified organism; N17.0 Acute kidney failure with tubular necrosis; E88.3 Tumor lysis syndrome; D61.810 Antineoplastic chemotherapy induced pancytopenia; G93.41 Metabolic encephalopathy; J96.01 Acute respiratory failure with hypoxia; C90.02 Multiple myeloma in relapse; Z94.81 Bone marrow transplant status; D80.1 Nonfamilial hypogammaglobulinemia; E87.1 Hypo-osmolality and hyponatremia; E87.2 Acidosis; D62 Acute posthemorrhagic anemia; J98.11 Atelectasis; I95.9 Hypotension, unspecified; I48.0 Paroxysmal atrial fibrillation; N18.30 Chronic kidney disease, stage 3 unspecified; Z66 Do not resuscitate; Z51.5 Encounter for palliative care; Z20.822 Contact with and (suspected) exposure to COVID-19; D69.59 Other secondary thrombocytopenia; E86.0 Dehydration; I12.9 Hypertensive chronic kidney disease with stage 1 through stage 4 chronic kidney disease, or unspecified chronic kidney disease; D63.0 Anemia in neoplastic disease; E83.52 Hypercalcemia; E86.1 Hypovolemia; E87.6 Hypokalemia; G89.29 Other chronic pain; E79.0 Hyperuricemia without signs of inflammatory arthritis and tophaceous disease; I08.3 Combined rheumatic disorders of mitral, aortic and tricuspid valves; T45.1X5A Adverse effect of antineoplastic and immunosuppressive drugs, initial encounter; T50.1X5A Adverse effect of loop [high-ceiling] diuretics, initial encounter; F32.9 Major depressive disorder, single episode, unspecified; M25.511 Pain in right shoulder; Z79.2 Long term (current) use of antibiotics; Z79.899 Other long term (current) drug therapy; Z90.49 Acquired absence of other specified parts of digestive tract; Z87.19 Personal history of other diseases of the digestive system; Z87.01 Personal history of pneumonia (recurrent); Z98.890 Other specified postprocedural states; Z88.5 Allergy status to narcotic agent; Z82.49 Family history of ischemic heart disease and other diseases of the circulatory system
CPT/HCPCS: 31624; 36415; 71045; 71046; 71250; 76770; 80048; 80053; 80202; 81001; 82306; 82607; 82728; 82746; 82784; 83605; 83615; 83735; 83880; 83883; 83970; 84100; 84132; 84145; 84165; 84443; 84484; 84550; 85025; 85027; 85379; 85610; 85730; 86140; 86644; 86645; 86738; 86850; 86870; 86880; 86900; 86901; 86902; 86920; 87040; 87070; 87075; 87086; 87102; 87116; 87205; 87206; 87252; 87281; 87449; 87496; 87498; 87502; 87529; 87634; 87635; 87798; 88108; 88305; 93005; 93306; 93880; 99285

== ENCOUNTER 2021-02-17 13:41 | Inpatient (IN) | payer MEDICAID ==
[2021-02-17] MEDS ORDERED: haloperidoL 1 MG TAB PO PRN (13:51)
[2021-02-17] MEDS ORDERED: GLYCOPYRROLATE 0.2 MG/ML 2 ML VIAL IVP PRN (13:51)
[2021-02-17] MEDS ORDERED: ONDANSETRON 4 MG/2 ML VIAL IVP PRN (13:51)
[2021-02-17] MEDS ORDERED: ATROPINE OPHTH SOLN 1% 5ML BTL SUBLINGUAL PRN (13:51)
[2021-02-17] MEDS ORDERED: ACETAMINOPHEN SUPPOSITORY 650 MG SUPP RECTAL PRN (13:51)
[2021-02-17] MEDS ORDERED: HYOSCYAMINE ORAL DROPS 1.875 MG/15 ML BOTTLE PO PRN (13:54)
[2021-02-17] MEDS ORDERED: HYDROcodone/APAP 10-325MG 1 EACH TAB PO PRN (13:59)
[2021-02-17] MEDS ORDERED: SCOPOLAMINE 1.5MG/72HR PATCH TRANSDERM SCH (14:00)
[2021-02-17] MEDS: HYDROmorphone 1 MG/ML 1 ML SYRINGE IVP SCH ×3 (14:36→20:54)
[2021-02-17 19:37] VITALS: BP 95/59; PULSE 78; TEMP 97.5
[2021-02-18] MEDS: HYDROmorphone 1 MG/ML 1 ML SYRINGE IVP SCH ×7 (00:05→17:03)
[2021-02-18] MEDS: diphenhydrAMINE 50 MG/ML 1 ML VIAL IVP SCH ×4 (11:48→23:26)
[2021-02-18] MEDS: MORPHINE SULFATE (100 MG/2 ML) 100 MG in SODIUM CHLORIDE 0.9% 100 ML IV SCH (11:50)
--- NOTE | 2021-02-18 14:34 | P.PN ---
Subjective Progress Note Date: 02/18/21 Bilateral interstitial pneumonia. With bilateral groundglass and interstitial infiltrates. Acute kidney injury secondary to hypercalcemia and hypotension, improving Multiple myeloma on chemotherapy Paroxysmal A. fib, currently converted to sinus rhythm This is a pleasant 50 years old male with multiple medical problems including multiple myeloma presents with acute kidney injury secondary to hypotension and hypercalcemia and currently is been followed closely by nephrology team while continued on normal saline at 75 mL/h. Also hematology/oncology team following the patient status post chemotherapy for hypercalcemia and status post pamidronate today. Pulmonary team and ID team for bilateral pneumonia, there is abnormal CT but clinically complaining only from exertional dyspnea. No fever or coughing. Patient currently current with ceftriaxone and Zithromax. Also patient is on home medication of acyclovir and Bactrim. Patient also continued on dexamethasone Other than that he is hemodynamically stable. No more fever. He is on room air. He has mild pancytopenia. Creatinine 1.5, calcium elevated at 10.8. Ejection fraction is 55-60%. CT of the chest showed patchy ground glass interstitial infiltrates., On 02/0402/08/2021 Patient still with exertional dyspnea. Very occasional dry coughing. No chest pain. No other specific complaints. He remains on room air and vitals are stable. No more fever. Labs are not concerning, he has stable pancytopenia, calcium is back to normal at 9. Creatinine improved significantly to 1.1. He has some mild evidence of acidemia with low carbon dioxide and patient was started on some sodium bicarbonate drip by nephrology team today. He remains on ceftriaxone and Zithromax. Dexamethasone which is a home medication. IV fluid. Several consultants on the case including pulmonary, ID, nephrology and oncology/hematology. 02/09/2021 Patient clinically the same with exertional dyspnea. His still mildly tachycardic and febrile and rest of vitals are stable. He still has pancytopenia with WBC 1.5, hemoglobin 6.9 and a platelet 59. He matology team on the case. Creatinine 1.0. Chest x-ray showing worsening bilateral infiltrates, coronavirus detected is negative. We have reordered procalcitonin and proBNP. Patient is on antibiotics with ceftriaxone and Zithromax, acyclovir and Bactrim. ID team and pulmonary team on the case. 02/10/2021 Patient still with dyspnea. He had a fever of 101.8 today. And his chest x-ray looks worse. Currently he is on ceftriaxone and Zithromax. He has pancytopenia and his hemoglobin dropped to 6.4. He is getting 1 unit of blood transfusion. Creatinine normal. Anion gap is normal carbon dioxide slightly low. He remains on Zithromax and ceftriaxone and dexamethasone and sodium bicarb. We will discuss with infectious disease team about his antibiotic management. 02/11/2021 Patient is more tachypneic today. He denies chest pain. No other specific complaints. His vitals little worse, he still has a fever of 101.7. He is saturating 93% on room air. He is tachycardic around 110. Blood pressure is 99/69. Remains pancytopenic with WBC is 2.2, hemoglobin 7 after 1 unit of blood transfusion and platelets 56. Creatinine remains stable. Calcium was low. His antibiotics were adjusted to cefepime and IV vancomycin. Remains on dexamethasone. IV fluids of sodium bicarb was stopped and switched to bicarb pedal and started on IV Lasix 40 mg twice daily. Also oncology on the case for chemotherapy. His procalcitonin is mildly worsened up to 0.34. Patient eroded by pulmonary team for bronchoscopy tomorrow 02/12/2021 Patient is continued to be dyspneic and multiple select unit. No chest pain or significant cough. He has exertional dyspnea and he needs help going to the restroom. He is tachypneic at 26, blood pressure is low normal for the last few days which looks his stable, currently 93/56. He is tachycardic at 114. And had fever yesterday. His CBC looks his stable with WBC 3.1, hemoglobin is improved 7.9 and platelets stable at 57. Creatinine 1.1, went up to 1.[address] of the chest without contrast showing bilateral patchy ground glass infiltrate which is progressed since admission. However patient covid test was checked 2 days ago that was negative, Patient remains on cefepime and IV vancomycin, voriconazole is been added. 13 considering the bronchoscopy. He is on sodium bicarbonate pills, IV fluid was stopped. Continued on IV Lasix 40 mg twice daily. Also he is on dexamethasone. Prognosis remains guarded Also he developed short period of A. fib, currently converted to sinus rhythm. 02/13/2021 Patient moved to the ICU today. He is status post bronchoscopy with bronchoalveolar lavage. After that his tachypnea is significantly improved however still significantly tachypneic especially if he tries to talk or move. His condition remains critical despite partial improvement after the bronchoscopy. He remains febrile with 102.7 today. He is tachycardic and tachypneic. Blood pressure is borderline and he was started on normal saline at 50 mL per hour plus metoprolol 50 mg twice a day and Lasix 40 mg twice a day. Labs basically looks stable with little fluctuation. His WBC is 3 today, hemoglobin 7 and platelets 61 with hematology on the case. He has multiple cultures are pending, please refer to order set. Chest x-ray showing persistent bilateral infiltrate. Patient remains on broad-spectrum antibiotics with cefepime, IV vancomycin and voriconazole. Also he is on steroids 02/14/2021 Patient is currently in the MICU. Complaining of shortness of breath. Requiring oxygen 3 L per nasal cannula. No complaints of chest pain. Patient has been afebrile. No nausea vomiting or abdominal pain or diarrhea. No headache or dizziness. Patient is on broad-spectrum antibiotics and antifungals. Status post bronchoscopy. BAL fluids showed no growth so far. Negative for malignant cells. Patient is pancytopenic due to multiple myeloma. WBC 3.2 hemoglobin 7.2 platelets 76 Sodium 134 potassium 4.2 chloride 10 to bicarb is 20 BUN 30 and creatinine 1.66, calcium 7.7 Patient is being continued on acyclovir, cefepime, voriconazole and also on dexamethasone. Heart rate is controlled with metoprolol 25 mg 3 times a day. Remains in sinus rhythm. 02/15/2021 Patient is currently sitting in the chair. Awake alert and oriented. Still having exertional shortness of breath with minimal activity on oxygen via nasal cannula at 3 L. Overnight patient was slightly agitated and pulled out IV line. Was given dose of sedatives overnight. Otherwise laboratory data showed creatinine increased to 2.37 and bicarb 15. Patient was started on bicarb drip. Nephrology is following. Patient was given a dose of IV Lasix 40 mg x 1. Chest x-ray showed bilateral airspace disease. No pneumothorax or pleural effusion. Patient is status post 2 units of PRBC during this admission. Otherwise patient is being continued on prophylactic antibiotics with acyclovir, voriconazole, pentamidine and also dexamethasone 28 mg weekly on Mondays. Discussed with his at bedside in detail. Pulmonary nephrology is on board. 02/16/2021 Patient is resting in the bed. Awake alert oriented. Still feels very weak and short of breath and confused at times. Requiring oxygen at 3 L and saturating at 93%. Patient has been afebrile. BUN went up to 97 creatinine 3.2 today. Blood sugar is 229 WBC 2.8 hemoglobin 7.0 and platelets 90 Patient is being current bicarb drip and also on broad-spectrum antibiotics including cefepime and voriconazole, pentamidine and acyclovir. Also on Decadron q. weekly. Patient's family is at bedside. 02/17/2021 Patient in the MICU. Patient is more confused and did not respond to verbal stimuli. Family discussed with the hospitalist. Spoke to hospice care today. Otherwise laboratory data showed WBC 2.6 hemoglobin 6.5 and platelets 78 Sodium 131 potassium 4.9 chloride 94 bicarb 20 BUN 132 and creatinine went up to 4.34 Patient is being transferred to hospice care today. Discussed with his and daughter at bedside. 02/18/2021 Patient has been moved to the [facility] floor and has signed on with [facility] with comfort measures only. Patient does have an ALLERGY to morphine and on the chart states itching and per [facility] patient was receiving IV Dilaudid although it continues to appear somewhat uncomfortable and would like to start morphine if possible. Will initiate morphine drip and continue with Benadryl IV push scheduled. continue with Comfort measures only and will continue to monitor closely. Current medications reviewed. Active Medications Acetaminophen (Acetaminophen Suppository 650 Mg Supp) 650 mg RECTAL Q4HR PRN PRN Reason: Fever and/or Mild Pain Hydrocodone Bitart/Acetaminophen (Hydrocodone/Apap 10-325mg 1 Each Tab) 1 each PO Q6HR PRN PRN Reason: Pain Atropine Sulfate (Atropine Ophth Soln 1% 5ml Btl) 2 drops SUBLINGUAL Q4HR PRN PRN Reason: Excess Secretions Diphenhydramine HCl (Diphenhydramine 50 Mg/Ml 1 Ml Vial) 50 mg IVP Q4HR [facility] Last Admin: 02/18/21 11:48 Dose: 50 mg Documented by: Glycopyrrolate (Glycopyrrolate 0.2 Mg/Ml 2 Ml Vial) 0.1 mg IVP Q6HR PRN PRN Reason: Excess Secretions Haloperidol (Haloperidol 1 Mg Tab) 1 mg PO Q8HR PRN PRN Reason: Agitation Hydromorphone HCl (Hydromorphone 1 Mg/Ml 1 Ml Syringe) 1 mg IVP Q3HR [facility] Last Admin: 02/18/21 12:11 Dose: Not Given Documented by: Hyoscyamine (Hyoscyamine Oral Drops 1.875 Mg/15 Ml Bottle) 0.125 mg PO Q4HR PRN PRN Reason: Secretions Morphine Sulfate 100 mg/ (Sodium Chloride) 102 mls @ 1.02 mls/hr IV .Q24H [facility]; Protocol Last Titration: 02/18/21 14:05 Dose: 1.96 mg/hr, 2 mls/hr Documented by: Lorazepam (Lorazepam 2 Mg/Ml Inj) 1 mg IV Q6HR PRN PRN Reason: Anxiety Ondansetron HCl (Ondansetron 4 Mg/2 Ml Vial) 4 mg IVP Q8HR PRN PRN Reason: Nausea/emesis Scopolamine (Scopolamine 1.5mg/72hr Patch) 1 patch TRANSDERM Q72H [facility] Last Admin: 02/17/21 14:33 Dose: 1 patch Documented by: physical exam: GENERAL: The patient is alert and oriented x0, Appears to be uncomfortable per nursing staff in [facility]. lethargic and minimally responsive only to pain HEENT: Pupils are round and equally reacting to light. EOMI. No scleral icterus. No conjunctival pallor. Normocephalic, atraumatic. No pharyngeal erythema. No thyromegaly. CARDIOVASCULAR: S1 and S2 present. No murmurs, rubs, or gallops. PULMONARY: diminished breath sounds bilaterally with some basilar crackles and mild gurgling noted ABDOMEN: Soft, nontender, nondistended, normoactive bowel sounds. No palpable organomegaly. MUSCULOSKELETAL: No joint swelling or deformity. EXTREMITIES: No cyanosis, clubbing, or pedal edema. NEUROLOGICAL: Gross neurological examination did not reveal any focal deficits. SKIN: No rashes. no petechiae. assessment: Bilateral interstitial pneumonia. With bilateral groundglass and interstitial infiltrates. Status post bronchoscopy. BAL cultures negative Acute kidney injury secondary to hypercalcemia and hypotension, improving Metabolic encephalopathy Multiple myeloma on chemotherapy Paroxysmal A. fib Hypercalcemia and hyperparathyroidism status post pamidronate Pancytopenia secondary to multiple myeloma and medication no code Plan: [facility] and is admitted inpatient GIP with [facility] hospice and comfort measures only. Will adjust pain medications to morphine drip and initiate Benadryl as there is an ALLERGY of itching noted from morphine. Discussed with [facility] hospice and they will continue to follow. Continue with comfort measures only. Prognosis remains extremely poor. Objective - Vital Signs Vital signs: Vital Signs Temp 97.5 F L 02/17/21 19:36 Pulse 78 02/17/21 19:36 Resp 19 02/17/21 20:54 BP 95/59 02/17/21 19:36 Pulse Ox 93 L 02/17/21 19:36 Intake & Output 02/17/21 02/18/21 02/18/21 18:59 06:59 18:59 Weight 98.9 kg Other: # Voids 0
[2021-02-18] MEDS: LORazepam 2 MG/ML INJ IV PRN ×2 (17:57→23:26)
[2021-02-18 20:09] VITALS: RESP 18
[2021-02-19] MEDS: diphenhydrAMINE 50 MG/ML 1 ML VIAL IVP SCH ×2 (04:49→07:22)
[2021-02-19] MEDS: MORPHINE SULFATE (100 MG/2 ML) 100 MG in SODIUM CHLORIDE 0.9% 100 ML IV SCH (05:08)
== END 2021-02-19 09:40 | disposition expired | DRG 951 ==
LOC: 2SICU 14:14 → 4SSUR 17:32
PROVIDERS: ADMIT Internal Medicine; ATTEND Internal Medicine
PROC: 05HD33Z Insertion of Infusion Device into Right Cephalic Vein, Percutaneous Approach (ICD-10-PCS; principal; 2021-02-18 07:30)
DX: Z51.5 Encounter for palliative care (principal); G93.41 Metabolic encephalopathy; J18.9 Pneumonia, unspecified organism; C90.00 Multiple myeloma not having achieved remission; D61.818 Other pancytopenia; E87.2 Acidosis; N17.9 Acute kidney failure, unspecified; E83.52 Hypercalcemia; F41.9 Anxiety disorder, unspecified; I48.0 Paroxysmal atrial fibrillation; Z88.5 Allergy status to narcotic agent; Z92.21 Personal history of antineoplastic chemotherapy; Z79.899 Other long term (current) drug therapy
CPT/HCPCS: 36410; 76937